=== PATIENT | male | born 1955 | race Caucasian/White ===

== ENCOUNTER 2016-09-24 07:53 | Inpatient (IN) | payer MEDICARE, BC ==
[2016-09-22 15:00] VITALS: BMI 22.8
--- NOTE | 2016-09-24 07:22 | P.GSHP ---
History of Present Illness H&P Date: 09/24/16 CHIEF COMPLAINT: GERD HISTORY OF PRESENT ILLNESS: The patient is a 61-year-old male who presents reports gastroesophageal reflux disease. Upper endoscopy was offered for further evaluation and management. PAST MEDICAL HISTORY: Please see list. PAST SURGICAL HISTORY: Please see list. MEDICATIONS: Please see list. ALLERGIES: Please see list. SOCIAL HISTORY: No illicit drug use FAMILY HISTORY: No reports of Crohn disease or ulcerative colitis. REVIEW OF ORGAN SYSTEMS: CONSTITUTIONAL: No reports of fevers or chills. GI: Denies any blood in stools or constipation. PHYSICAL EXAM: VITAL SIGNS: Stable GENERAL: Well-developed and pleasant in no acute distress. HEENT: No scleral icterus. Extraocular movements grossly intact. Moist buccal mucosa. NECK: Supple without lymphadenopathy. CHEST: Unlabored respirations. Equal bilateral excursions. CARDIOVASCULAR: Regular rate and rhythm. Distal 2+ pulses. ABDOMEN: Soft, nondistended. MUSCULOSKELETAL: No clubbing, cyanosis, or edema. ASSESSMENT: 1. Gastroesophageal reflux disease PLAN: 1. Recommend proceeding with an upper endoscopy Past Medical History Past Medical History: Hypertension, Seizure Disorder Additional Past Medical History / Comment(s): past hx. 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 ago-residual short term memory impairment, & comprehension, balance problems @times, occasional problems w/feeling like food gets stuck-not sure how long has been going on because of memory impairment, used to take BP med-no longer needed, used to have seizures-none for several yrs. History of Any Multi-Drug Resistant Organisms: None Reported Past Surgical History: Cholecystectomy Additional Past Surgical History / Comment(s): repair of aneurysm w/clip, has brain shunt-not sure if still functions, repair torn retina Past Anesthesia/Blood Transfusion Reactions: Previous Problems w/ Anesthesia Additional Past Anesthesia/Blood Transfusion Reaction / Comment(s): very slow to wake up-doesn't need much per spouse Smoking Status: Former smoker Past Alcohol Use History: Rare Additional Past Alcohol Use History / Comment(s): smoked occasional cigars 30 yrs. ago Past Drug Use History: None Reported - Past Family History Mother Family Medical History: Unable to Obtain Medications and Allergies Home Medications Medication Instructions Recorded Confirmed Type Cyanocobalamin (Vitamin B-12) 1,000 mcg PO DAILY 09/22/16 09/22/16 History [Vitamin B-12] Multivitamin [Men's Multi-Vitamin] 1 each PO DAILY 09/22/16 09/22/16 History Allergies Allergy/AdvReac Type Severity Reaction Status Date / Time No Known Allergies Allergy Verified 09/22/16 14:50
[~2016-09-24 07:53] MED LIST: LACTATED RINGERS 1,000 ML IV SCH
[2016-09-24] MEDS ORDERED: LIDOCAINE 1% 20 ML VIAL (10MG/ML) FOR IV START INTRADERMA ONE (08:24)
[2016-09-24] MEDS ORDERED: LIDOCAINE 1% INJ 10MG/ML (20 ML MDV) ONE (08:28)
[2016-09-24] MEDS ORDERED: PROPOFOL 10 MG/ML 20 ML VIAL IV ONE (08:28)
[2016-09-24] MEDS ORDERED: RX INFO: IV CONTRAST WAS GIVEN 1 EACH MISC MISCELLANE PRN ×2 (09:02→09:11)
[2016-09-24 09:31] LABS: Basophils % (A) 1 %; CH 30.2; CHCM 33.4; Eosinophils # (A) 0.3 k/uL (0-0.7); Eosinophils % (A) 5 %; HCT 44.7 % (39.0-53.0); HDW 2.31; HGB 14.6 gm/dL (13.0-17.5); Luc # (Auto) 0.09; Luc % (Auto) 2; Lymphocytes # (A) 1.4 k/uL (1.0-4.8); Lymphocytes % (A) 28 %; MCH 29.7 pg (25.0-35.0); MCHC 32.7 g/dL (31.0-37.0); MCV 90.8 fL (80.0-100.0); Mean Platelet Volume 6.4; Monocytes # (A) 0.4 k/uL (0-1.0); Monocytes % (A) 7 %; Neutrophils # (A) 2.9 k/uL (1.3-7.7); Neutrophils % (A) 58 %; RBC 4.92 m/uL (4.30-5.90); RDW 12.9 % (11.5-15.5); WBC 5.1 k/uL (3.8-10.6); WBC (Perox) 5.48
[2016-09-24 09:51] LABS: ALT 24 U/L (21-72); AST 18 U/L (17-59); Alkaline Phosphatase 64 U/L (38-126); Anion Gap 7 mmol/L; Blood Urea Nitrogen 12 mg/dL (9-20); Calcium 9.1 mg/dL (8.4-10.2); Carbon Dioxide 26 mmol/L (22-30); Chloride 105 mmol/L (98-107); Glucose 92 mg/dL (74-99); Non-African American GFR(MDRD) >60 (>60 ml/min/1.73 sqM); Potassium 4.1 mmol/L (3.5-5.1); Sodium 138 mmol/L (137-145); Total Bilirubin 0.8 mg/dL (0.2-1.3); Total Protein 6.6 g/dL (6.3-8.2)
--- NOTE | 2016-09-24 10:53 | CT ---
EXAMINATION TYPE: CT chest abdomen w con DATE OF EXAM: 09/24/2016 10:35 AM REFERENCE: NONE HISTORY: R/O ASPIRATION/NEOPLASM HISTORY: Esophageal mass, abn scope REFERENCE: NONE CT DLP: 592.7 mGy Automated exposure control for dose reduction was used. TECHNIQUE: Helical acquisition through the abdomen and pelvis was obtained following the oral ingesti on of without Oral Contrast and following intravenous administration of 100 mL of Omnipaque 300. The data was reformatted in axial, coronal and sagittal projections. FINDINGS: There is atelectasis or consolidation at the lung bases worse on the right than the left. No definite parenchymal mass is seen. There is no significant axillary, mediastinal or hilar adenopathy. There is no pleural or pericardial fluid. The heart is not enlarged. There is a prominent hiatal hernia. Within the abdomen, the gallbladder has been removed. The liver and spleen appear normal. Both adrenal glands appear normal. There is an irregularly enhancing 1.9 cm exophytic mass arising from the lower pole of the right kidn ey. The left kidney is normal. The pancreas is unremarkable. There is no significant retroperitoneal adenopathy. There is a ventriculoperitoneal shunt catheter in the soft tissues on the right side of the chest and abdomen and its tip is coiled within the pelvis on the right. Visualized bowel loops are unremarkable. No free fluid and no free air is seen. There is degenerative disc disease, facet arthropathy and mild hypertrophic spondylosis within the sp ine. IMPRESSION: ATELECTASIS VERSUS CONSOLIDATION BOTH LUNG BASES WORSE ON THE RIGHT THAN THE LEFT. 2. PROMINENT HIATAL HERNIA. 3. 1.9 CM, IRREGULARLY ENHANCING, EXOPHYTIC MASS ARISING FROM THE LOWER POLE THE RIGHT KIDNEY. THIS I S SUSPICIOUS FOR NEOPLASM. 4. STATUS POST POST BATCH MIXER SHUNT. 5. MILD DEGENERATIVE CHANGES WITHIN THE SPINE.
[2016-09-24] MEDS ORDERED: HYDROmorphone 1 MG/ML 1 ML SYRINGE IVP PRN (14:22)
[2016-09-24] MEDS ORDERED: ONDANSETRON 4 MG/2 ML VIAL IVP PRN (14:22)
[2016-09-24] MEDS ORDERED: NALOXONE 0.4 MG/ML 1 ML VIAL IV PRN (14:22)
[2016-09-24] MEDS ORDERED: traMADol 50 MG TAB PO PRN (14:22)
[2016-09-24] MEDS ORDERED: METOCLOPRAMIDE 5 MG/ML 2 ML VIAL IVP PRN (14:22)
--- NOTE | 2016-09-24 15:48 | FL ---
EXAMINATION TYPE: FL UGI w esophagus DATE OF EXAM: 09/24/2016 3:43 PM COMPARISON: NONE HISTORY: Esophageal mass on recent endoscopy TECHNIQUE: An air contrast UGI study is performed. FINDINGS: Tubing Tester image of the abdomen shows no gross abnormality. Apple core lesion distal esophagus just proximal to a moderate-sized fixed hiatal hernia. Luminal adan rowing is estimated at 50%. No evidence for obstruction at this time. The stomach shows normal distensibility, peristalsis, and mucosal folds. No evidence of any mass or ulcer disease. Moderate gastroesophageal reflux. The duodenal bulb, sweep, and proximal small bowel l oops are unremarkable. IMPRESSION: 1. Apple core lesion distal esophagus felt to reflect malignancy until proven otherwise. 2. Moderate fixed hiatal hernia with gastroesophageal reflux.
[2016-09-24 17:35] VITALS: RESP 16
--- NOTE | 2016-09-24 19:24 | P.PN ---
Subjective Principal diagnosis: Esophageal and right kidney tumor The patient is a 61-year-old gentleman who was admitted today after completing an upper endoscopy with balloon dilatation for narrow obstructing lesion of the GE junction. Biopsies were obtained. He had an immediate CT of the past and abdomen demonstrating a new finding of a right inferior pole neoplasm, possible malignancy. He then completed a upper GI for concerns of aspiration which demonstrated and confirmed an apple core lesion highly suspicious for cancer. His is at bedside for his baseline history of memory impairment secondary to ruptured cerebral aneurysm. Currently has no complaints. Objective - Vital Signs Vital signs: Vital Signs Temp 97.9 F 09/24/16 08:31 Pulse 61 09/24/16 17:05 Resp 16 09/24/16 18:31 BP 147/85 09/24/16 17:05 Pulse Ox 97 09/24/16 17:05 Intake & Output 09/24/16 09/24/16 09/25/16 06:59 18:59 06:59 Intake Total 500 Balance 500 Weight 70.307 kg Intake: IV 500 - Exam GENERAL: Well developed and in no acute distress. Pleasant. HEENT: No sclera icterus. Extraocular movements grossly intact. Moist buccal mucosa. Head is atraumatic, normocephalic. Hears conversational speech. No nasal drainage. NECK: Supple without lymphadenopathy. No JV distention. CHEST: Non-labored respirations and equal bilateral excursions. CARDIOVASCULAR: Regular rate and rhythm. Palpable 2+ radial pulses. ABDOMEN: Soft, nontender. Nondistended. MUSCULOSKELETAL: No clubbing, cyanosis or edema. NEUROLOGIC: No focal or lateralizing signs. PSYCH: Appropriate affect. Alert and oriented to person, place and time. - Labs CBC & Chem 7: 09/24/16 09:20 09/24/16 09:20 Assessment and Plan (1) Memory impairment Status: Acute (2) Cerebral aneurysm rupture Status: Acute (3) Dysphagia Status: Acute (4) Hiatal hernia Status: Acute (5) Primary esophageal malignancy Status: Acute (6) Renal malignant neoplasm Status: Acute (7) Reflux esophagitis Status: Acute (8) Duodenitis Status: Acute (9) Aspiration pneumonia due to regurgitated food Status: Acute Plan: 1. I discussed the findings of his computed tomography scan including upper GI and endoscopy images with his at bedside. Findings are highly suspicious of 2 separate malignancies involving the right kidney as well as the GE junction of the esophagus. 2. Recommend hospitalization for concern of near obstructing esophageal lesion as well as aspiration pneumonia. Pulmonary consultation obtained. 3. For history of kidney neoplasm, urology consultation obtained. Likely outpatient management was also described to his family. 4. Recommend oncology consultation as 2 separate primaries may be present with his renal neoplasm and esophageal neoplasm. Possibility of Mediport placement and chemotherapy were briefly reviewed. 5. Patient is placed on full liquid diet. 6. I discussed with nurse that to remain at bedside for his history of memory impairment. 7. Additionally, the patient does not have an active primary care provider. In the interim we'll continue to watch the patient closely. 8. Anticipated discharge pending evaluation with consultants.
--- NOTE | 2016-09-24 19:34 | P.PCN ---
Date of Procedure: 09/24/16 Description of Procedure: PREOPERATIVE DIAGNOSIS: Gastroesophageal reflux disease. History of stroke secondary to cerebral aneurysm rupture. Dysphagia. 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 POSTOPERATIVE DIAGNOSIS: Gastroesophageal reflux disease. History of stroke secondary to cerebral aneurysm rupture. Dysphagia. 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 Acute esophageal stenosis along GE junction. Diaphragmatic hiatal hernia type III. Duodenitis. OPERATION: Esophagogastroduodenoscopy with esophageal dilation from 8 mm to 15 mm. Esophagogastroduodenoscopy with biopsies along duodenum, esophageal stricture, antrum SURGEON: Steph Briones MD ANESTHESIA: MAC. INDICATIONS: The patient is a 61-year-old male who presents with several month history of increased dysphagia and epigastric abdominal pain. He has history of memory impairment secondary to hemorrhagic stroke from cerebral aneurysm. Benefits and risks of the procedure were described. Informed consent was obtained. DESCRIPTION: The patient was brought into the endoscopy suite and laid in the left lateral decubitus position. A pediatric Olympus gastroscope was carefully passed along the posterior oropharynx. Upon entry into the esophagus, circumferential lesion along the GE junction was identified at 32 cm from the incisors. The lesion was easily friable. The lumen was narrowed secondary to the lesion. The esophageal mucosa along the mid to distal esophagus was of cobblestone appearance suspicious for Way's. The remainder of the luminal stricture was consistent with 8.5 mm. The scope was entered into the hiatal hernia sac which was over 8 cm in size. No acute ulcerations were found. The rest of the stomach was entered without any evidence of gastric polyps or acute gastric ulcers. The duodenum was entered whereby the first portion of duodenum was consistent with early duodenitis. Cold forceps biopsies were obtained of the first portion duodenum including along the antrum of the stomach. Next attention was brought to dilation of the stricture of the esophagus. A 12 to 15 mm [employer] esophageal balloon dilator was inserted along the scope. The stricture corresponded to 8.5 mm. Carefully the balloon dilator was passed beyond the area stricture. Initial dilation was slowly performed at 12 mm then to 15 mm. The balloon was insufflated for 2 minutes, total. Retroflexion of the scope confirmed Hill grade 4 lower esophageal valve with a type III paraesophageal diaphragmatic hiatal hernia, sliding type. Cold forceps biopsies were obtained of esophageal stricture and lesion. The diaphragmatic hiatus was found at 40 cm. The squamocolumnar junction was again obliterated by the lesion. No full-thickness injury was found along the esophageal mucosa. The stomach was desufflated. The patient tolerated the procedure well. FINDINGS: Polypoid lesion with near obstruction at 32 cm from the incisors along the distal esophagus. Squamocolumnar junction obliterated by neoplasm. Diaphragmatic hiatus at 40 cm. Diaphragmatic hiatal hernia 8 cm. 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 Balloon dilation from 8.5 mm to 15 mm. Hill grade 4 lower esophageal valve. Active duodenitis. Acute mild duodenitis. RECOMMENDATIONS: He has been started on Carafate including protonix. Further recommendations pending results of pathology report. Recommend esophagram also to evaluate for aspiration. Recommend CT of the chest and abdomen for metastatic workup.
[2016-09-24] MEDS: SODIUM CHLORIDE 0.9% 1,000 ML IV SCH (19:42)
[2016-09-25] MEDS: SODIUM CHLORIDE 0.9% 1,000 ML IV SCH (08:20)
[2016-09-25] MEDS: PANTOPRAZOLE 40 MG/10 ML VIAL IV SCH (09:49)
[2016-09-25] MEDS: ENOXAPARIN 40 MG/0.4 ML SYRINGE SQ SCH (09:49)
--- NOTE | 2016-09-25 11:57 | P.GSCN ---
History of Present Illness Consult date: 09/25/16 Reason for Consult: Right renal mass Requesting physician: Steph Briones History of present illness: The patient is a 61-year-old white female known to Dr. Antonio. He has a neurogenic bladder related to a cerebral aneurysm. He has recently experienced dysphagia and epigastric pain. He underwent EGD, which revealed a distal esophageal neoplasm. Biopsy results are pending. The computed tomography scan showed an incidental 1.9 cm right lower pole renal mass. I'm consulted for this reason. The patient denies flank pain and hematuria. Review of Systems - Respiratory Denies dyspnea - Gastrointestinal Gastrointestinal Comment(s): Dysphagia - Genitourinary Reports urinary frequency, Denies hematuria - Neurological Reports memory loss Past Medical History Past Medical History: Hypertension, Seizure Disorder Additional Past Medical History / Comment(s): past hx. 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 ago-residual short term memory impairment, & comprehension, balance problems @times, occasional problems w/feeling like food gets stuck-not sure how long has been going on because of memory impairment, used to take BP med-no longer needed, used to have seizures-none for several yrs. History of Any Multi-Drug Resistant Organisms: None Reported Past Surgical History: Cholecystectomy Additional Past Surgical History / Comment(s): repair of aneurysm w/clip, has brain shunt-not sure if still functions, repair torn retina Past Anesthesia/Blood Transfusion Reactions: Previous Problems w/ Anesthesia Additional Past Anesthesia/Blood Transfusion Reaction / Comm: very slow to wake up-doesn't need much per spouse Smoking Status: Former smoker Past Alcohol Use History: Rare Additional Past Alcohol Use History / Comment(s): smoked occasional cigars 30 yrs. ago Past Drug Use History: None Reported - Past Family History Mother Family Medical History: Unable to Obtain Medications and Allergies Home Medications Medication Instructions Recorded Confirmed Type Cyanocobalamin (Vitamin B-12) 1,000 mcg PO DAILY 09/22/16 09/24/16 History [Vitamin B-12] Multivitamin [Men's Multi-Vitamin] 1 tab PO DAILY 09/22/16 09/24/16 History Allergies Allergy/AdvReac Type Severity Reaction Status Date / Time No Known Allergies Allergy Verified 09/24/16 08:13 Surgical - Exam Vital Signs Temp Pulse Resp BP Pulse Ox 97.9 F 67 16 145/97 97 09/24/16 08:04 09/24/16 08:04 09/24/16 08:04 09/24/16 08:04 09/24/16 08:04 - General well developed, well nourished, no distress - Abdomen Abdomen: soft, non tender, no guarding, no rigid, no rebound - Genitourinary normal penis with no external lesions, testicles non-tender - Psychiatric oriented to time, oriented to person, oriented to place, speech is normal, memory intact Results - Labs 09/24/16 09:20 09/24/16 09:20 Diabetes panel 09/24/16 Range/Units 09:20 Sodium 138 (137-145) mmol/L Potassium 4.1 (3.5-5.1) mmol/L Chloride 105 (98-107) mmol/L Carbon Dioxide 26 (22-30) mmol/L BUN 12 (9-20) mg/dL Creatinine 0.73 (0.66-1.25) mg/dL Glucose 92 (74-99) mg/dL Calcium 9.1 (8.4-10.2) mg/dL AST 18 (17-59) U/L ALT 24 (21-72) U/L Alkaline Phosphatase 64 (38-126) U/L Total Protein 6.6 (6.3-8.2) g/dL Albumin 3.6 (3.5-5.0) g/dL Calcium panel 09/24/16 Range/Units 09:20 Calcium 9.1 (8.4-10.2) mg/dL Albumin 3.6 (3.5-5.0) g/dL Pituitary panel 09/24/16 Range/Units 09:20 Sodium 138 (137-145) mmol/L Potassium 4.1 (3.5-5.1) mmol/L Chloride 105 (98-107) mmol/L Carbon Dioxide 26 (22-30) mmol/L BUN 12 (9-20) mg/dL Creatinine 0.73 (0.66-1.25) mg/dL Glucose 92 (74-99) mg/dL Calcium 9.1 (8.4-10.2) mg/dL Adrenal panel 09/24/16 Range/Units 09:20 Sodium 138 (137-145) mmol/L Potassium 4.1 (3.5-5.1) mmol/L Chloride 105 (98-107) mmol/L Carbon Dioxide 26 (22-30) mmol/L BUN 12 (9-20) mg/dL Creatinine 0.73 (0.66-1.25) mg/dL Glucose 92 (74-99) mg/dL Calcium 9.1 (8.4-10.2) mg/dL Total Bilirubin 0.8 (0.2-1.3) mg/dL AST 18 (17-59) U/L ALT 24 (21-72) U/L Alkaline Phosphatase 64 (38-126) U/L Total Protein 6.6 (6.3-8.2) g/dL Albumin 3.6 (3.5-5.0) g/dL - Imaging CT scan - abdomen: report reviewed, image reviewed Assessment and Plan (1) Renal mass, right Status: Acute Plan: The patient is a 61-year-old white male with probable esophageal carcinoma. Computed tomography scan imaging has shown an incidental 1.9 cm enhancing right lower pole renal mass. I had a lengthy discussion with the patient and his . I explained to them the most solid renal masses are malignant in nature. This could be metastatic from the presumed esophageal carcinoma, but it has the appearance of renal cell carcinoma and I suspect this is a second primary malignancy. Treatment options include partial nephrectomy, cryosurgery, and radiofrequency ablation. He is asymptomatic with regards to this mass, and I reassured the patient and his that small renal masses typically progress slowly. It would best be my recommendation that he undergo further evaluation and treatment for the esophageal carcinoma, and address the renal mass at a later date. It would be reasonable to repeat the computed tomography scan in 3- 6 months to determine whether or not the lesion has increased in size. I would suggest a renal biopsy if this would alter the management of the esophageal carcinoma. Please notify us if we can be of any further assistance. Incidentally, bladder scan has been ordered to determine the post-void residual in view of the patient's significant urinary frequency. Time with Patient: Greater than 30
--- NOTE | 2016-09-25 18:03 | CONS ---
DATE OF CONSULTATION: This is a 61-year-old gentleman who apparently recently he has a diagnosis of esophageal carcinoma. He apparently was in to have an EGD done by Dr. Briones to evaluate the patient's hiatal hernia and stomach. Apparently the patient may have had an aspiration episode during the event. I really was not able get much history from him or his significant other. He has apparently a significant memory issue. Anyway, currently the patient is doing well. No complaints whatsoever. No cough, no wheezing. No shortness of breath. No fever, no chills. No difficulty breathing. No complaints at all. He is resting in bed comfortably. Not having any issues at all. Again, I am not exactly sure why I was consulted. Anyway, the patient used to have a primary doctor up in [place]. It used to be Dr. Moreno. It also used to be Dr. Mora. Currently does not have a primary care physician. His past medical history includes hypertension, seizure disorder and a recent diagnosis of esophageal cancer. He also has a history of cerebral aneurysm rupture many years ago with significant memory impairment. He also used to have a history of seizures, none recently. Other surgical history includes cholecystectomy, repair of aneurysm with clipping and a brain shunt, probably a ventricular peritoneal shunt. SOCIAL HISTORY: Positive for previous tobacco use. Does not smoke currently. No alcohol use. No illicit drug use. FAMILY HISTORY: Not relevant. Home medications only included a few things including multiple vitamins, vitamin B12, Carafate and omeprazole. No allergies are noted. REVIEW OF SYSTEMS: CONSTITUTIONAL: Negative. NEUROLOGICAL: Negative. HEENT: Negative. CARDIOVASCULAR: Negative. PULMONARY: Negative. GI/: Negative. RHEUMATOLOGICAL/IMMUNOLOGIC: Negative. ENDOCRINOLOGIC: Negative. Current vital signs are reviewed. Temperature is 97.8, heart rate 68, respirations 16, blood pressure 153/75, mean 114, room air saturation 97%. Appears in no acute distress. HEENT examination is grossly unremarkable. Mucous membranes are moist. No oral lesions. Neck is supple. Full range of motion. No adenopathy. Neck veins are flat. Cardiovascular examination reveals regular rhythm and rate. S1, S2 normal. No S3, S4, murmur. Lungs are clear breath sounds equal. No wheezes or rhonchi. ABDOMEN: Soft. Bowel sounds are heard. EXTREMITIES: Intact. There is no cyanosis, clubbing or edema. Skin is without rash. NEUROLOGICAL: Nonfocal. Labs are reviewed. From yesterday CBC was completely normal. Electrolyte profile/comprehensive metabolic profile is also completely normal. The patient had a CAT scan which apparently showed evidence of bibasilar atelectasis. I was not able to pull up the CAT scan on PACS. In addition, there was a prominent hiatal hernia as well as a lesion in the lower pole of the right kidney suspicious for neoplasm. There was also evidence of previously placed ventricular peritoneal shunt and some mild degenerative changes within the spine. I would like to think that the changes on CT scan likely represent atelectasis given the fact that he is asymptomatic from the pulmonary standpoint. ASSESSMENT: 1. Possible transient aspiration with no significant sequelae. 2. Recent esophagogastroduodenoscopy for evaluation of gastroesophageal reflux disease and hiatal hernia. 3. Recent diagnosis of esophageal cancer. 4. A 1.9 cm lesion in the right kidney suspicious for neoplasm. 5. Previous aneurysm rupture with significant memory impairment, status post clipping. 6. Previous history of ventricular peritoneal shunt. 7. Degenerative joint disease. 8. Hiatal hernia. 9. History of hypertension. 10. History of seizure disorder without any recent seizures. PLAN: Really nothing for me to do. Would recommend incentive spirometry. No additional treatments are necessary at this point. Will follow only as needed.
--- NOTE | 2016-09-25 20:25 | P.PN ---
Subjective Principal diagnosis: Dysphagia , Reflux 61 yrs old male undergoing evaluation of GERD and dysphagia. UGI - applecore distal esophageal lesion s/o malignancy. EGD with bx performed- results pending. He is tolerating full liquids. Short term memory loss secondary to ruptured cerebral aneursym and has MILL ATTENDANT shunt in place. Incidental finding of kidney mass on CT abd/pelvis. No new complaints. at bedside Objective - Vital Signs Vital signs: Vital Signs Temp 97.4 F L 09/25/16 15:00 Pulse 74 09/25/16 15:00 Resp 16 09/25/16 15:00 BP 163/91 09/25/16 15:00 Pulse Ox 97 09/25/16 15:00 Intake & Output 09/25/16 09/25/16 09/26/16 06:59 18:59 06:59 Intake Total 1230 1200 Balance 1230 1200 Intake: IV 750 1200 Sodium Chloride 0.9% 1, 750 1200 000 ml @ 75 mls/hr IV . [id number] EDER Rx#:[id number] Oral 480 Other: Voiding Method Toilet # Voids 1 - Exam General: Patient is awake and alert Chest: Bilateral breasth sounds present CVS: No tachycardia, RRR Abdomen: SOft, nontender - Labs CBC & Chem 7: 09/24/16 09:20 09/24/16 09:20 Assessment and Plan (1) Hiatal hernia Status: Acute (2) Memory impairment Status: Acute (3) Primary esophageal malignancy Status: Acute (4) Reflux esophagitis Status: Acute Plan: 1. Advace to soft diet 2. Aspiration precautions 3. Oncology and pulmonology consult awaited
[2016-09-26] MEDS: SODIUM CHLORIDE 0.9% 1,000 ML IV SCH (04:18)
[2016-09-26 08:00] VITALS: BP 179/98; PULSE 69; TEMP 98
[2016-09-26] MEDS: PANTOPRAZOLE 40 MG/10 ML VIAL IV SCH (08:04)
[2016-09-26] MEDS: ENOXAPARIN 40 MG/0.4 ML SYRINGE SQ SCH (08:04)
--- NOTE | 2016-09-26 10:58 | P.CONS ---
History of Present Illness - Reason for Consult Consult date: 09/26/16 esophageal mass Requesting physician: Steph Briones - Chief Complaint dysphagia, reflux - History of Present Illness Mr. Jarquin is a very pleasant 61-year-old male who was having routine EGD for complaints of dysphagia x 1 month. Patient has moderate to severe heartburn episodes and some minor weight loss. Surgeon identified GE junction mass and biopsies have been taken, pathology pending. He has a history of a cerebral hemorrhage about 25 years ago and has difficulties with memory. His provides us with much of the information. Patient denies having any fevers or sweats, vomiting, hematemesis, acute changes in bowel or bladder habits. He does not recall when he began experiencing severe reflux, his states it was about a month ago, patient does not complain about much, the family only knows about problems when it has become severe. Patient denies any painful swallowing, regurgitation or difficulty managing his secretions. Patient states he can eat and drink fairly well. Review of Systems All systems: negative Constitutional: Reports as per HPI Past Medical History Past Medical History: Hypertension, Seizure Disorder Additional Past Medical History / Comment(s): past hx. 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 ago-residual short term memory impairment, & comprehension, balance problems @times, occasional problems w/feeling like food gets stuck-not sure how long has been going on because of memory impairment, used to take BP med-no longer needed, used to have seizures-none for several yrs. History of Any Multi-Drug Resistant Organisms: None Reported Past Surgical History: Cholecystectomy Additional Past Surgical History / Comment(s): repair of aneurysm w/clip, has brain shunt-not sure if still functions, repair torn retina Past Anesthesia/Blood Transfusion Reactions: Previous Problems w/ Anesthesia Additional Past Anesthesia/Blood Transfusion Reaction / Comm: very slow to wake up-doesn't need much per spouse Smoking Status: Former smoker Past Alcohol Use History: Rare Additional Past Alcohol Use History / Comment(s): smoked occasional cigars 30 yrs. ago Past Drug Use History: None Reported - Past Family History Mother Family Medical History: Unable to Obtain Medications and Allergies Home Medications Medication Instructions Recorded Confirmed Type Cyanocobalamin (Vitamin B-12) 1,000 mcg PO DAILY 09/22/16 09/24/16 History [Vitamin B-12] Multivitamin [Men's Multi-Vitamin] 1 tab PO DAILY 09/22/16 09/24/16 History Allergies Allergy/AdvReac Type Severity Reaction Status Date / Time No Known Allergies Allergy Verified 09/24/16 08:13 Physical Exam Vitals: Vital Signs Temp Pulse Resp BP Pulse Ox 09/26/16 07:00 98.0 F 69 16 179/98 95 09/25/16 21:15 97.3 F L 80 16 161/88 96 09/25/16 15:00 97.4 F L 74 16 163/91 97 Intake and Output 09/25/16 09/26/16 09/26/16 22:59 06:59 14:59 Intake Total 780 600 Output Total 2200 Balance 780 -1600 Intake: IV 300 600 Sodium Chloride 0.9% 1, 300 600 000 ml @ 75 mls/hr IV . [id number] Rx#:[id number] Oral 480 Output: Urine 2200 Uretheral ([place]) 2200 Other: Voiding Method Indwelling Catheter Indwelling Catheter Weight 70.307 kg Patient Weight 09/27/16 06:59 Weight 70.307 kg - Constitutional General appearance: average body habitus, cooperative, no acute distress - EENT Eyes: anicteric sclerae, PERRLA, normal appearance ENT: normal oropharynx - Neck Neck: no lymphadenopathy - Respiratory Respiratory: bilateral: CTA - Cardiovascular Rhythm: regular Heart sounds: normal: S1, S2 leg Peripheral Edema: bilateral: None - Gastrointestinal General gastrointestinal: no absent bowel sounds, no decreased bowel sounds, no distended, no hepatomegaly, no hyperactive bowel sounds, normal bowel sounds, no organomegaly, no rigid, no scaphoid, soft, no splenomegaly, no tenderness, no umbilical hernia, no ventral hernia - Integumentary Integumentary: pale - Neurologic Neurologic: CNII-XII intact - Musculoskeletal Musculoskeletal: strength equal bilaterally - Psychiatric Some difficulties with memory secondary to history of cerebral hemorrhage 25 years ago Psychiatric: A&O x's 3, appropriate affect, intact judgment & insight Results CBC & Chem 7: 09/24/16 09:20 09/24/16 09:20 Comments: Surgical report reviewed CT scan - abdomen: report reviewed CT scan - chest: report reviewed Assessment and Plan (1) Dysphagia Narrative/Plan: Patient's discharge at has led to an EGD and identification of the GE junction mass which has been biopsied, pathology pending. Dr. Hyde did discuss with the patient and his concerns for malignancy. Staging PET scan and endoscopic ultrasound will be scheduled, did confirm patient's contact information and demographics. Further referrals to radiation oncology as well as cardiothoracic surgeon will be made as appropriate. Status: Acute (2) Renal mass, right Narrative/Plan: Dr. Sorenson has seen pt and Dr. Hyde reviewed imaging, 1.9cm mass not concerning at this time. Agree with Dr. Sorenson plan for follow-up. Patient will also be having a staging PET scan that may be able to further evaluate this area as well. Status: Acute Plan: Patient is okay from an oncology standpoint to be discharged home once he has been cleared by attending and any other consulting physicians.
--- NOTE | 2016-09-26 11:29 | P.DS ---
Providers Date of admission: 09/24/16 14:22 Expected date of discharge: 09/26/16 Attending physician: Steph Briones Consults: 09/24/16 14:50 Consult Physician Routine Consulting Provider: Memo Sorenson Consult Reason/Comments: Right kidney neoplasm Do you want consulting provider notified?: Yes 09/24/16 14:51 Consult Physician Routine Consulting Provider: Bruno Wood Consult Reason/Comments: Aspiration pneumonia Do you want consulting provider notified?: Yes 09/24/16 16:32 Consult Physician Routine Consulting Provider: Love Wilder Consult Reason/Comments: Kidney and esophageal tumor Do you want consulting provider notified?: Yes Primary care physician: Stated None - Discharge Diagnosis(es) (1) Hiatal hernia Current Visit: Yes Status: Acute (2) Memory impairment Current Visit: Yes Status: Acute (3) Primary esophageal malignancy Current Visit: Yes Status: Acute (4) Reflux esophagitis Current Visit: Yes Status: Acute Hospital Course: 61 years old male found to have distal esophageal mass on EGD and upper GI showed 50% narrowing of the lumen consistent with esophageal carcinoma. Incidental finding of kidney mass. Patient was evaluated by oncology and urology and plan for outpatient follow-up . Patient is tolerating soft diet at discharge Patient Condition at Discharge: Stable Plan - Discharge Summary New Discharge Prescriptions: Omeprazole 40 mg PO DAILY #90 capsule. Sucralfate [Carafate] 1 gm PO BID #480 ml Discharge Medication List Cyanocobalamin (Vitamin B-12) [Vitamin B-12] 1,000 mcg PO DAILY 09/22/16 [ History] Multivitamin [Men's Multi-Vitamin] 1 tab PO DAILY 09/22/16 [History] Omeprazole 40 mg PO DAILY #90 capsule. 09/24/16 [Rx] Sucralfate [Carafate] 1 gm PO BID #480 ml 09/24/16 [Rx] Follow up Appointment(s)/Referral(s): Memo Sorenson MD [STAFF PHYSICIAN] - 1 Week Steph Briones MD [STAFF PHYSICIAN] - 10/07/16 ([place]) Patient Instructions/Handouts: *Surgery [facility] - (Anesthesia) Endoscopy Discharge Instructions, Upper Endoscopy (DC), Esophageal Stricture (DC), Esophageal Dilation (DC) Activity/Diet/Wound Care/Special Instructions: Liquid diet only. Discharge Disposition: HOME SELF-CARE
[2016-09-26] MEDS ORDERED: BISACODYL 10 MG SUPP RECTAL STA (13:05)
--- NOTE | 2016-09-26 23:44 | PN ---
61-year-old gentleman with a recent diagnosis of esophageal carcinoma. He apparently was to have an EGD done by Dr. Briones to evaluate the patient's hiatal hernia. The patient may have aspirated during the episode. Anyway, the patient is not a particularly good historian. Does not really having any respiratory issues. His was with him at the bedside. He apparently is doing relatively well. No further episodes. I did institute aspiration precautions. I also recommend incentive spirometry. He possibly had a transient aspiration with no significant sequelae following an EGD. Anyway, the patient is doing much better. Current vital signs are reviewed. Temperature 98.8, heart rate 59, respirations 16, blood pressure of 163/91, mean 115, room air saturation 97%. Appears in no acute distress. HEENT examination is grossly unremarkable. Mucous membranes are moist. No oral lesions. Neck is supple. Full range of motion. No adenopathy or thyromegaly. Cardiovascular examination reveals regular rhythm and rate. S1, S2 normal. No S3, S4 or murmur. Lungs reveal mostly clear breath sounds. No wheezes or rhonchi. No crackles. ABDOMEN: Soft. Bowel sounds are heard. EXTREMITIES: Intact. There is no cyanosis, clubbing or edema. Skin is without rash. NEUROLOGICAL: Difficult to perform because of the patient's dementia and memory, and the patient appeared to be nonfocal. No new labs to report. No new x-rays to report. ASSESSMENT: 1. Possible transient aspiration following an EEG with no significant sequelae. 2. Recent EGD for evaluation of gastroesophageal reflux disease and hiatal hernia. 3. Esophageal cancer, recently diagnosed. 4. 1.9 cm lesion in the right kidney cyst suspicious for neoplasm. 5. Previous aneurysm rupture with significant memory impairment, status post clipping. 6. Previous history of ventricular peritoneal shunt. 7. Degenerative joint disease. 8. Hiatal hernia. 9. History of hypertension. 10. History of seizure disorder without any recent seizures. PLAN: The patient is doing well from a pulmonary standpoint. We will see him as needed. No additional recommendations are made. Does not require oxygen this time.
--- NOTE | 2016-09-27 08:03 | P.DS ---
Providers Date of admission: 09/24/16 14:22 Expected date of discharge: 09/26/16 Attending physician: Steph Briones Consults: 09/24/16 14:50 Consult Physician Routine Consulting Provider: Memo Sorenson Consult Reason/Comments: Right kidney neoplasm Do you want consulting provider notified?: Yes 09/24/16 14:51 Consult Physician Routine Consulting Provider: Bruno Wood Consult Reason/Comments: Aspiration pneumonia Do you want consulting provider notified?: Yes 09/24/16 16:32 Consult Physician Routine Consulting Provider: Love Wilder Consult Reason/Comments: Kidney and esophageal tumor Do you want consulting provider notified?: Yes Primary care physician: Stated None - Discharge Diagnosis(es) (1) Memory impairment Status: Acute (2) Cerebral aneurysm rupture Status: Acute (3) Dysphagia Status: Acute (4) Hiatal hernia Status: Acute (5) Primary esophageal malignancy Status: Acute (6) Renal malignant neoplasm Status: Acute (7) Reflux esophagitis Status: Acute (8) Duodenitis Status: Acute (9) Aspiration pneumonia due to regurgitated food Status: Acute Hospital Course: The patient is a 61-year-old gentleman who came in for history of dysphagia. He had an upper endoscopy with findings of a partially obstructing esophageal lesion. He then had a CT of the chest and abdomen including esophagram demonstrating a large diaphragmatic hiatal hernia including a lesion along the distal esophagus consistent with possible esophageal malignancy. Biopsies of the lesion were obtained. Separately incidental finding of a right inferior pole malignancy was identified. With this history of memory impairment including past history of ruptured cerebral aneurysm, he was admitted for further evaluation and management. Additional consultants including pulmonary for risk of aspiration pneumonia as well as urology and hematology oncology were obtained. Prior to discharge, he was tolerating diet. Discharge instructions including plan of care were reviewed. Pertinent Studies: CT of the chest and abdomen demonstrating large diaphragmatic hiatal hernia as well as inferior pole malignancy of the right kidney. Findings of consolidation of the bilateral lower lung bases identified. Esophagogram demonstrating reflux disease including large diaphragmatic hiatal hernia and esophageal malignancy of the distal esophagus. Procedures: Upper endoscopy with esophageal dilation and biopsies of the esophagus, antrum and duodenum. Patient Condition at Discharge: Stable Plan - Discharge Summary New Discharge Prescriptions: Omeprazole 40 mg PO DAILY #90 capsule. Sucralfate [Carafate] 1 gm PO BID #480 ml Discharge Medication List Cyanocobalamin (Vitamin B-12) [Vitamin B-12] 1,000 mcg PO DAILY 09/22/16 [ History] Multivitamin [Men's Multi-Vitamin] 1 tab PO DAILY 09/22/16 [History] Omeprazole 40 mg PO DAILY #90 capsule. 09/24/16 [Rx] Sucralfate [Carafate] 1 gm PO BID #480 ml 09/24/16 [Rx] Follow up Appointment(s)/Referral(s): Memo Sorenson MD [STAFF PHYSICIAN] - 1 Week (Patient needs to call Dr. Sorenson's office Tuesday to schedule follow up appointment. The office is closed at time of discharge.) Steph Briones MD [STAFF PHYSICIAN] - 10/07/16 (Patient to call Dr. Díaz office Tuesday to get time of follow up appointment. The office is closed at time of discharge. ) Love Wilder MD [STAFF PHYSICIAN] - 1 Week (call tuesday to make appt) Patient Instructions/Handouts: *Sur[facility] - (Anesthesia) Endoscopy Discharge Instructions, Sucralfate (By mouth), Omeprazole (By mouth), Upper Endoscopy (DC) , Esophageal Stricture (DC), Esophageal Dilation (DC) Activity/Diet/Wound Care/Special Instructions: Liquid diet only. Discharge Disposition: HOME SELF-CARE
== END 2016-09-26 16:50 | disposition home or self-care (01) | DRG 376 ==
LOC: ORWHC2ENDO 07:53 → 5ONC 14:22
PROVIDERS: ADMIT Surgery Plastic and Reconstructive Surgery; ATTEND Surgery Plastic and Reconstructive Surgery
PROC: 0D758ZZ Dilation of Esophagus, Via Natural or Artificial Opening Endoscopic (ICD-10-PCS; principal; 2016-09-24 08:30)
PROC: 0DB58ZX Excision of Esophagus, Via Natural or Artificial Opening Endoscopic, Diagnostic (ICD-10-PCS; principal; 2016-09-24 08:30)
DX: C15.9 Malignant neoplasm of esophagus, unspecified (principal); F03.90 Unspecified dementia, unspecified severity, without behavioral disturbance, psychotic disturbance, mood disturbance, and anxiety; N31.9 Neuromuscular dysfunction of bladder, unspecified; D49.511 Neoplasm of unspecified behavior of right kidney; I10 Essential (primary) hypertension; I69.111 Memory deficit following nontraumatic intracerebral hemorrhage; K21.0 Gastro-esophageal reflux disease with esophagitis; K22.70 Barrett's esophagus without dysplasia; K29.80 Duodenitis without bleeding; K44.9 Diaphragmatic hernia without obstruction or gangrene; M19.90 Unspecified osteoarthritis, unspecified site; Z87.891 Personal history of nicotine dependence; Z98.2 Presence of cerebrospinal fluid drainage device
CPT/HCPCS: 43239; 43249; 71260; 74160; 74240; 80053; 85025; 88305; 88342

== ENCOUNTER → 2016-10-16 | Outpatient (CLI) | payer MEDICARE, BC ==
--- NOTE | 2016-10-18 10:25 | PE ---
Nuclear medicine PET/CT HISTORY: Esophagus carcinoma Patient received 9.4 mCi F-18 FDG intravenously. Delayed scanning was performed from the skull base t o the mid thighs. Localization and attenuation correction CT scan was also performed. Correlation to chest abdomen CT 09/24/2016 Neck and chest: There is esophageal thickening distally the level of the gastroesophageal junction, a ssociated hypermetabolic uptake is present, SUV is 7.8. There is a hiatal hernia, partial intrathorac ic stomach. No local adenopathy. No associated hypermetabolic uptake. No evident lung mass, no pleura l or pericardial effusion. Emphysematous changes are present within the lungs. There are areas of deandre g scarring. Shunt tubing courses from the posterior right neck along anterior chest and abdomen. Tera nary calcifications are present. Skull base shows inflammatory change in the sphenoid sinus on the right, ethmoid air cells. Postcrani otomy change, probable aneurysm clipping noted in the distribution of the right middle cerebral arter y. Abdomen pelvis: No retroperitoneal adenopathy. Patient is post cholecystectomy. No evident lung mass. Lower pole of the right kidney shows possible mass on prior CT, no definite associated hypermetaboli c uptake.. There is a shunt catheter coursing into the pelvis. Osseous structures: No evident mass. No suspicious hypermetabolic uptake. IMPRESSION: Findings compatible with patient's history of esophageal carcinoma. Follow-up for lower p ole right renal lesion is recommended.
== END | disposition home or self-care (01) ==
LOC: RADPETMAIN 12:38
PROVIDERS: ATTEND Internal Medicine Hematology & Oncology
DX: C15.5 Malignant neoplasm of lower third of esophagus (principal)
CPT/HCPCS: 78815; A9552

== ENCOUNTER → 2016-12-25 | Outpatient (CLI) | payer MEDICARE, BC ==
--- NOTE | 2016-12-27 13:49 | PE ---
Nuclear medicine PET/CT HISTORY: Esophageal carcinoma With patient received 11.8 mCi F-18 FDG intravenously in delayed scanning performed from the skull ba se to the mid thighs. Localization and attenuation correction CT scan was also performed. Correlation to prior nuclear medicine PET/CT 10/16/2016 Neck and chest: Hypermetabolic uptake is noted within the esophagus as midportion, SUV 3.4. Within th e stomach mild radio pharmaceutical uptake shows SUV 2.8 and may be physiologic. Inflammatory change noted incidentally in the sphenoid sinus on the right similar to prior exam. Nasopharyngeal hypermeta bolic uptake is intense, SUV 4.7. No significant change. Abdomen pelvis: Shunt tubing is again noted. No evident liver mass or adenopathy. Lower pole right ki dney shows similar appearance. No suspicious hypermetabolic uptake Osseous structures: Anterior aspect of L5 shows some mild uptake SUV 2.6 as at L4. IMPRESSION: Uptake seen along the distribution of the esophagus is somewhat more diffuse and likely r elated to treatment change, focal \uptake is not identified. Additional nonspecific foci of uptake of questionable clinical significance.
== END | disposition home or self-care (01) ==
LOC: RADPETMAIN 09:41
PROVIDERS: ATTEND Internal Medicine Hematology & Oncology
DX: C15.5 Malignant neoplasm of lower third of esophagus (principal)
CPT/HCPCS: 78815; A9552

== ENCOUNTER 2017-05-26 17:51 | Inpatient (IN) | payer MEDICARE, BC ==
[2017-05-26] MEDS ORDERED: ONDANSETRON 4 MG/2 ML VIAL IVP STA (18:00)
[2017-05-26] MEDS ORDERED: HYDROmorphone 1 MG/ML 1 ML SYRINGE IVP STA (18:00)
--- NOTE | 2017-05-26 18:18 | ED ---
Fall HPI - General Chief Complaint: Fall Stated Complaint: Fall/Hip Pain Time Seen by Provider: 05/26/17 17:53 Source: patient, EMS Mode of arrival: EMS Limitations: physical limitation - History of Present Illness Initial Comments: 62-year-old female presents emergency department via EMS chief complaint left hip pain, fall. Patient states he went outside, slipped on ice and fell onto his left hip. Patient was outside for approximately 20 minutes. Patient states he is slightly cold though he is not shivering. Patient states that his left hip pain and states it is pain with any movement. Patient states that he has a history of ruptured 20+ years ago. Patient states that he has some memory loss from this. Patient denies head injury no LOC today. Patient has a history of A. fib but states that he does not believe that he is on anticoagulants. Patient states she's had esophageal cancer with esophageal reconstruction. - Related Data Home Medications Medication Instructions Recorded Confirmed Multivitamin [Men's Multi-Vitamin] 1 tab PO DAILY 09/22/16 05/26/17 Cyanocobalamin (Vitamin B-12) 5,000 mcg SL DAILY 05/26/17 05/26/17 [Vitamin B12] Metoprolol Tartrate [Lopressor] 25 mg PO TID 05/26/17 05/26/17 Tamsulosin HCl [Flomax] 0.4 mg PO HS 05/26/17 05/26/17 Allergies Allergy/AdvReac Type Severity Reaction Status Date / Time No Known Allergies Allergy Verified 05/26/17 18:32 Review of Systems ROS Statement: Those systems with pertinent positive or pertinent negative responses have been documented in the HPI. ROS Other: All systems not noted in ROS Statement are negative. Past Medical History Past Medical History: Atrial Fibrillation, Cancer, Hypertension, Seizure Disorder Additional Past Medical History / Comment(s): past hx. 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 ago-residual short term memory impairment, & comprehension, balance problems @times, occasional problems w/feeling like food gets stuck-not sure how long has been going on because of memory impairment, used to take BP med-no longer needed, used to have seizures-none for several yrs. History of Any Multi-Drug Resistant Organisms: None Reported Past Surgical History: Cholecystectomy Additional Past Surgical History / Comment(s): repair of aneurysm w/clip, has brain shunt-not sure if still functions, repair torn retina Past Anesthesia/Blood Transfusion Reactions: Previous Problems w/ Anesthesia Additional Past Anesthesia/Blood Transfusion Reaction / Comment(s): very slow to wake up-doesn't need much per spouse Past Psychological History: No Psychological Hx Reported Smoking Status: Former smoker Past Alcohol Use History: Rare Past Drug Use History: None Reported - Past Family History Mother Family Medical History: Unable to Obtain General Exam Limitations: altered mental status, physical limitation General appearance: alert, in no apparent distress Respiratory exam: Present: normal lung sounds bilaterally. Absent: respiratory distress, wheezes, rales, rhonchi, stridor Cardiovascular Exam: Present: regular rate, normal rhythm, normal heart sounds. Absent: systolic murmur, diastolic murmur, rubs, gallop, clicks Extremities exam: Present: other (Left hip tenderness with palpation, pulses equal bilaterally, there is internal rotation shortening noted, pain with any movement.) Skin exam: Present: dry, intact, normal color. Absent: warm (Patient slightly cool to touch as he was found outside for 20 minutes) Course Vital Signs 05/26/17 05/26/17 17:55 18:42 Temperature 95.9 F L Pulse Rate 63 71 Respiratory 18 18 Rate Blood Pressure 178/97 157/84 O2 Sat by Pulse 92 L 94 L Oximetry Medical Decision Making - Lab Data Result diagrams: 05/26/17 18:22 05/26/17 18:22 Lab Results 05/26/17 05/26/17 05/26/17 Range/Units 18:22 18:22 18:22 WBC 6.0 (3.8-10.6) k/uL RBC 4.72 (4.30-5.90) m/uL Hgb 13.6 (13.0-17.5) gm/dL Hct 41.3 (39.0-53.0) % MCV 87.5 (80.0-100.0) fL MCH 28.9 (25.0-35.0) pg MCHC 33.1 (31.0-37.0) g/dL RDW 13.6 (11.5-15.5) % Plt Count 208 (150-450) k/uL Neutrophils % 77 % Lymphocytes % 11 % Monocytes % 6 % Eosinophils % 4 % Basophils % 0 % Neutrophils # 4.6 (1.3-7.7) k/uL Lymphocytes # 0.7 L (1.0-4.8) k/uL Monocytes # 0.4 (0-1.0) k/uL Eosinophils # 0.3 (0-0.7) k/uL Basophils # 0.0 (0-0.2) k/uL PT 10.8 (9.0-12.0) sec INR 1.1 (<1.2) APTT 23.2 (22.0-30.0) sec Sodium 138 (137-145) mmol/L Potassium 3.9 (3.5-5.1) mmol/L Chloride 101 (98-107) mmol/L Carbon Dioxide 26 (22-30) mmol/L Anion Gap 11 mmol/L BUN 9 (9-20) mg/dL Creatinine 0.65 L (0.66-1.25) mg/dL Est GFR (MDRD) Af Amer >60 (>60 ml/min/1.73 sqM) Est GFR (MDRD) Non-Af >60 (>60 ml/min/1.73 sqM) Glucose 111 H (74-99) mg/dL Calcium 9.5 (8.4-10.2) mg/dL Total Bilirubin 0.4 (0.2-1.3) mg/dL AST 24 (17-59) U/L ALT 35 (21-72) U/L Alkaline Phosphatase 108 (38-126) U/L Total Protein 6.9 (6.3-8.2) g/dL Albumin 4.1 (3.5-5.0) g/dL Disposition Clinical Impression: Fall, Closed left hip fracture Disposition: ADMITTED IP TO THIS [facility] Condition: Stable Referrals: None,Stated [REFERRING] - 1-2 days
[2017-05-26 18:32] LABS: Basophils % (A) 0 %; Eosinophils # (A) 0.3 k/uL (0-0.7); Eosinophils % (A) 4 %; HCT 41.3 % (39.0-53.0); HGB 13.6 gm/dL (13.0-17.5); Lymphocytes # (A) 0.7 k/uL (1.0-4.8); Lymphocytes % (A) 11 %; MCH 28.9 pg (25.0-35.0); MCHC 33.1 g/dL (31.0-37.0); MCV 87.5 fL (80.0-100.0); Mean Platelet Volume 6.6; Monocytes # (A) 0.4 k/uL (0-1.0); Monocytes % (A) 6 %; Neutrophils # (A) 4.6 k/uL (1.3-7.7); Neutrophils % (A) 77 %; Platelet Count 208 k/uL (150-450); RBC 4.72 m/uL (4.30-5.90); RDW 13.6 % (11.5-15.5)
[2017-05-26 18:45] LABS: ALT 35 U/L (21-72); AST 24 U/L (17-59); Albumin 4.1 g/dL (3.5-5.0); Alkaline Phosphatase 108 U/L (38-126); Anion Gap 11 mmol/L; Blood Urea Nitrogen 9 mg/dL (9-20); Calcium 9.5 mg/dL (8.4-10.2); Carbon Dioxide 26 mmol/L (22-30); Chloride 101 mmol/L (98-107); Glucose 111 mg/dL (74-99); Potassium 3.9 mmol/L (3.5-5.1); Sodium 138 mmol/L (137-145); Total Bilirubin 0.4 mg/dL (0.2-1.3); Total Protein 6.9 g/dL (6.3-8.2)
[2017-05-26 18:46] LABS: INR 1.1 (<1.2); Partial Thromboplastin Time 23.2 sec (22.0-30.0); Prothrombin Time 10.8 sec (9.0-12.0)
--- NOTE | 2017-05-26 19:09 | XR ---
EXAMINATION TYPE: XR Hip LT and AP Pelvis , 3 VIEWS DATE OF EXAM ORDERED: 05/26/2017 HISTORY: Pain. COMPARISON: None. FINDINGS: Catheter tubing projects over the right side of the abdomen. There is superior joint space loss present in both hips. There is a subcapital fracture of the left h ip with mild angulation and minimal foreshortening. No other fracture is seen. IMPRESSION: SUBCAPITAL FRACTURE OF THE LEFT HIP WITH MILD FORESHORTENING AND MINIMAL ANGULATION. CODE A: INITIAL ASSESSMENT FOR CLOSED FRACTURE.
--- NOTE | 2017-05-26 19:11 | XR ---
EXAMINATION TYPE: XR chest 1V DATE OF EXAM: 05/26/2017 HISTORY: Pain following trauma. REFERENCE: None. FINDINGS: There is a AUTOTRANSFUSIONIST shunt projecting over the right side of the chest. Lung volumes are prominent. The heart is mildly enlarged. There is blunting of the left CP angle. I c ould not exclude a small left effusion.. IMPRESSION: 1. COPD. 2. BORDERLINE CARDIOMEGALY. 3. I COULD NOT EXCLUDE A SMALL, LEFT EFFUSION.
[2017-05-26] MEDS ORDERED: HYDROmorphone 2 MG/ML 1 ML SYRINGE IVP PRN (19:14)
[2017-05-26] MEDS ORDERED: NALOXONE 0.4 MG/ML 1 ML VIAL IV PRN (19:14)
[2017-05-26] MEDS ORDERED: ONDANSETRON 4 MG/2 ML VIAL IVP PRN (19:14)
[2017-05-26 20:28] VITALS: BMI 22.9
[2017-05-26] MEDS: METOPROLOL TARTRATE 25 MG TAB PO SCH (20:47)
[2017-05-26] MEDS: TAMSULOSIN 0.4 MG CAP.ER.24H PO SCH (20:47)
[2017-05-26] MEDS: HYDROmorphone 2 MG/ML 1 ML SYRINGE IVP PRN (22:38)
--- NOTE | 2017-05-26 22:52 | P.HPIM ---
History of Present Illness H&P Date: 05/26/17 Chief Complaint: fall HISTORY OF PRESENT ILLNESS: 62-year-old male patient of Dr. 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 Patient went outside to take the trash out slipped on the ice and fell onto his left hip, and was down for about 20 minutes was found by his [id number] who is helping to take care of him while his was running an errand. Denies any head injury or loss of consciousness, complains of left hip and left rib pain. The bulk of the history was obtained from the patient's who is at the bedside. REVIEW OF SYSTEMS GEN.: [ Tired] EYES: [Spatial visual problems HEENT: [None] NECK: [None] RESPIRATORY: [Some shortness of breath] CARDIOVASCULAR: [Palpitations] GASTROINTESTINAL: [Swallowing difficulties] GENITOURINARY: [Difficulty initiating a stream, neurogenic bladder] MUSCULOSKELETAL: [Back pain left hip, left lower extremity pain] LYMPHATICS: [None] HEMATOLOGICAL: [None] PSYCHIATRY: [None] NEUROLOGICAL: [Dizziness, left-sided neglect] PAST MEDICAL HISTORY Past medical history: Atrial fibrillation, cancer, hypertension, seizure disorder, cerebral aneurysm rupture 25 years ago has residual short-term memory impairment and comprehension and balance problems, esophageal stricture Past surgical history: Repair of aneurysm with clip, has brain shunt torn retina repair esophagectomy for esophageal cancer with reconstruction. PEG tube placement with removal Past psychological history: None SOCIAL HISTORY: Additional psychological/social history: Smoking use history: Occasionally smokes cigars 30 years ago Alcohol use history: Rare Drug use history: Denies Marital status: Living situation: Lives with Work history: FAMILY HISTORY: Father: Mother: ALLERGIES: No known ALLERGIES HOME MEDICATION: Tamsulosin 0.4 mg by mouth at bedtime Multivitamin 1 tablet by mouth daily Metoprolol tartrate 25 mg by mouth 3 times a day Cyanocobalamin 5000 g sublingual daily VITAL SIGNS: [Temperature 98.9, pulse 76, respiratory rate 18, blood pressure 183/88, oxygen saturation 92% on room air. BMI noted] GENERAL: [Average built, sitting up, mild discomfort]. EYES: [Pupils equal. Conjunctiva leonard]l. HEENT: [External appearance of nose and ears normal, oral cavity grossly normal] . NECK: [JVD not raised; masses not palpable]. HEART: [First and second heart sounds are normal; no edema]. LUNGS:[ Respiratory rate normal; clear to auscultation]. ABDOMEN: [Soft, nontender, liver spleen not palpable, no masses palpable]. LYMPHATICS: [No lymph nodes palpable in the axilla and neck]. PSYCH: [Alert and oriented x3; has short-term memory problems mood and affect leonard]l. NEUROLOGICAL: [Cranial nerves grossly intact; mild left facial asymmetry, left- sided neglect, power and sensation on the right 5 over 5, left 4/5]. INVESTIGATIONS: CBC unremarkable, BMP unremarkable ASSESSMENT: -Subcapital fracture of the left hip secondary to a fall outside patient was down for 20 minutes -Benign prostatic hypertrophy -Paroxysmal atrial fibrillation, currently in sinus rhythm PLAN: Reorder home medications, Consult orthopedics, patient to be made nothing by mouth after midnight for possible surgery in the morning. Plan of care discussed at the bedside with the patient and they are in agreement. We will follow closely. 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 Chaudhary. Past Medical History Past Medical History: Atrial Fibrillation, Cancer, Hypertension, Seizure Disorder Additional Past Medical History / Comment(s): past hx. 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 ago-residual short term memory impairment, & comprehension, balance problems @times, occasional problems w/feeling like food gets stuck-not sure how long has been going on because of memory impairment, used to take BP med-no longer needed, used to have seizures-none for several yrs. History of Any Multi-Drug Resistant Organisms: None Reported Past Surgical History: Cholecystectomy Additional Past Surgical History / Comment(s): repair of aneurysm w/clip, has brain shunt-not sure if still functions, repair torn retina Past Anesthesia/Blood Transfusion Reactions: Previous Problems w/ Anesthesia Additional Past Anesthesia/Blood Transfusion Reaction / Comment(s): very slow to wake up-doesn't need much per spouse Past Psychological History: No Psychological Hx Reported Smoking Status: Never smoker Past Alcohol Use History: Rare Additional Past Alcohol Use History / Comment(s): smoked occasional cigars 30 yrs. ago Past Drug Use History: None Reported - Past Family History Mother Family Medical History: Unable to Obtain Medications and Allergies Home Medications Medication Instructions Recorded Confirmed Type Multivitamin [Men's Multi-Vitamin] 1 tab PO DAILY 09/22/16 05/26/17 History Cyanocobalamin (Vitamin B-12) 5,000 mcg SL DAILY 05/26/17 05/26/17 History [Vitamin B12] Metoprolol Tartrate [Lopressor] 25 mg PO TID 05/26/17 05/26/17 History Tamsulosin HCl [Flomax] 0.4 mg PO HS 05/26/17 05/26/17 History Allergies Allergy/AdvReac Type Severity Reaction Status Date / Time No Known Allergies Allergy Verified 05/26/17 18:32 Physical Exam Vitals: Vital Signs Temp Pulse Resp BP Pulse Ox 05/26/17 19:56 98.9 F 76 18 183/88 92 L 05/26/17 18:42 71 18 157/84 94 L 05/26/17 17:55 95.9 F L 63 18 178/97 92 L Intake and Output 05/26/17 05/26/17 05/26/17 06:59 14:59 22:59 Other: Weight 72.575 kg Patient Weight 05/27/17 06:59 Weight 72.575 kg Results CBC & Chem 7: 05/26/17 18:22 05/26/17 18:22 Labs: Abnormal Lab Results - Last 24 Hours (Table) 05/26/17 05/26/17 Range/Units 18:22 18:22 Lymphocytes # 0.7 L (1.0-4.8) k/uL Creatinine 0.65 L (0.66-1.25) mg/dL Glucose 111 H (74-99) mg/dL Thrombosis Risk Factor Assmnt - Choose All That Apply Each Factor Represents 1 point: Medical pt on bed rest, Minor surgery planned Each Risk Factor Represents 2 Points: Age 61-74 years Thrombosis Risk Factor Assessment Total Risk Factor Score: 4 Thrombosis Risk Factor Assessment Level: Moderate Risk
[2017-05-27] MEDS: HYDROmorphone 2 MG/ML 1 ML SYRINGE IVP PRN ×4 (04:23→19:49)
[2017-05-27] MEDS: METOPROLOL TARTRATE 25 MG TAB PO SCH ×3 (08:55→21:16)
[2017-05-27] MEDS: CYANOCOBALAMIN 500 MCG TAB PO SCH (08:56)
--- NOTE | 2017-05-27 10:18 | P.HPOR ---
History of Present Illness H&P Date: 05/27/17 Chief Complaint: left hip fracture Patient is a pleasant 62-year-old male seen at bedside this morning. He was admitted to the emergency department last evening 05/26/2017 after a fall at home. He was putting trash in a burn barrel when he slipped and fell on his left side. He has pain at the left hip as expected. He is currently denying radicular symptoms including numbness or tingling. He has no calf pain, fever, chills, chest pain or shortness of breath. He denies losing consciousness or hitting his head. His past medical history includes esophageal cancer where he underwent radiation and chemotherapy last summer and finally surgery in January 2017. He and his state that he is finished with treatment. He had an aneurysm 25 years ago which resulted in residual short-term memory loss. This has been chronic and stable. He had some residual left-sided weakness from the aneurysm as well but has been active with walking daily up to 3 miles per day this past summer. He has been medically stable and takes one medication for hypertension and one medication for BPH. He has no other complaints today. Review of Systems All systems: negative Constitutional: Denies chills, Denies fever Eyes: denies blurred vision, denies pain Ears, nose, mouth and throat: Denies headache, Denies sore throat Cardiovascular: Denies chest pain, Denies shortness of breath Respiratory: Denies cough Gastrointestinal: Denies abdominal pain, Denies diarrhea, Denies nausea, Denies vomiting Musculoskeletal: Denies myalgias Integumentary: Denies pruritus, Denies rash Neurological: Denies numbness, Denies weakness Psychiatric: Denies anxiety, Denies depression Endocrine: Denies fatigue, Denies weight change Past Medical History Past Medical History: Atrial Fibrillation, Cancer, Hypertension, Seizure Disorder Additional Past Medical History / Comment(s): past hx. 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 ago-residual short term memory impairment, & comprehension, balance problems @times, occasional problems w/feeling like food gets stuck-not sure how long has been going on because of memory impairment, used to take BP med-no longer needed, used to have seizures-none for several yrs. History of Any Multi-Drug Resistant Organisms: None Reported Past Surgical History: Cholecystectomy Additional Past Surgical History / Comment(s): repair of aneurysm w/clip, has brain shunt-not sure if still functions, repair torn retina Past Anesthesia/Blood Transfusion Reactions: Previous Problems w/ Anesthesia Additional Past Anesthesia/Blood Transfusion Reaction / Comment(s): very slow to wake up-doesn't need much per spouse Past Psychological History: No Psychological Hx Reported Smoking Status: Never smoker Past Alcohol Use History: Rare Additional Past Alcohol Use History / Comment(s): smoked occasional cigars 30 yrs. ago Past Drug Use History: None Reported - Past Family History Mother Family Medical History: Unable to Obtain Medications and Allergies Home Medications Medication Instructions Recorded Confirmed Type Multivitamin [Men's Multi-Vitamin] 1 tab PO DAILY 09/22/16 05/26/17 History Cyanocobalamin (Vitamin B-12) 5,000 mcg SL DAILY 05/26/17 05/26/17 History [Vitamin B12] Metoprolol Tartrate [Lopressor] 25 mg PO TID 05/26/17 05/26/17 History Tamsulosin HCl [Flomax] 0.4 mg PO HS 05/26/17 05/26/17 History Allergies Allergy/AdvReac Type Severity Reaction Status Date / Time No Known Allergies Allergy Verified 05/26/17 18:32 Physical Examination inspection of the left lower extremity shows a shortened leg. There is no erythema.There are no open wounds or lacerations. Range of motion of the hip is not tested due to the fracture. The knee, ankle and foot are benign in appearance. He has some pain with mild range of motion of the left knee. The ankle, foot and toes have painless range of motion. Motor and sensation is grossly intact throughout the left lower extremity. Calf is soft and nontender. 2+ dorsalis pedis pulse is present and less than 2 second capillary refill is present. Results - Labs Labs: Abnormal Lab Results - Last 24 Hours (Table) 05/26/17 05/26/17 Range/Units 18:22 18:22 Lymphocytes # 0.7 L (1.0-4.8) k/uL Creatinine 0.65 L (0.66-1.25) mg/dL Glucose 111 H (74-99) mg/dL H & H 05/26/17 Range/Units 18:22 Hgb 13.6 (13.0-17.5) gm/dL Hct 41.3 (39.0-53.0) % Coagulation 05/26/17 Range/Units 18:22 INR 1.1 (<1.2) Result Diagrams: 05/26/17 18:22 05/26/17 18:22 - Diagnostic results Hip x-ray: report reviewed, image reviewed (left femoral neck fracture) Assessment and Plan (1) Closed left hip fracture Narrative/Plan: Patient will require surgical intervention for his left hip fracture. He is currently nothing by mouth. He appears to be medically stable, his labs and studies appear to be within relatively normal ranges. Will discuss case with Dr. Wagner and make further recommendations as appropriate. Current Visit: Yes Status: Acute Priority: Medium Code(s): S72.002A - FRACTURE OF UNSP PART OF NECK OF LEFT FEMUR, INIT SNOMED Code(s): 256664581 Time with Patient: Less than 30
[2017-05-27] MEDS: MULTIVITAMINS, THERA 1 EACH TAB PO SCH (10:25)
--- NOTE | 2017-05-27 12:47 | P.CON ---
Consult Note - . Consult date: 05/27/17 Assessment/Plan:: CONSULTATION DATE OF CONSULTATION: 05/26/2017 REASON FOR CONSULTATION: Medical management HISTORY OF PRESENT ILLNESS: 62-year-old male patient went outside to take the trash out slipped on the ice and fell onto his left hip, and was down for about 20 minutes was found by his [id number] who is helping to take care of him while his was running an errand. Denies any head injury or loss of consciousness, complains of left hip and left rib pain. The bulk of the history was obtained from the patient's who is at the bedside.t of Dr. 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 Patient REVIEW OF SYSTEMS GEN.: [ Tired] EYES: [Spatial visual problems HEENT: [None] NECK: [None] RESPIRATORY: [Some shortness of breath] CARDIOVASCULAR: [Palpitations] GASTROINTESTINAL: [Swallowing difficulties] GENITOURINARY: [Difficulty initiating a stream, neurogenic bladder] MUSCULOSKELETAL: [Back pain left hip, left lower extremity pain] LYMPHATICS: [None] HEMATOLOGICAL: [None] PSYCHIATRY: [None] NEUROLOGICAL: [Dizziness, left-sided neglect] PAST MEDICAL HISTORY: Past medical history: Atrial fibrillation, cancer, hypertension, seizure disorder, cerebral aneurysm rupture 25 years ago has residual short-term memory impairment and comprehension and balance problems, esophageal stricture PAST SURGICAL HISTORY: Repair of aneurysm with clip, has brain shunt torn retina repair esophagectomy for esophageal cancer with reconstruction. PEG tube placement with removal Past psychological history: None SOCIAL HISTORY: Additional psychological/social history: Smoking use history: Occasionally smokes cigars 30 years ago Alcohol use history: Rare Drug use history: Denies Marital status: Living situation: Lives with Work history: FAMILY HISTORY: Reviewed and noncontributory HOME MEDICATIONS: Tamsulosin 0.4 mg by mouth at bedtime Multivitamin 1 tablet by mouth daily Metoprolol tartrate 25 mg by mouth 3 times a day Cyanocobalamin 5000 g sublingual daily ALLERGIES: No known ALLERGIES VITAL SIGNS: [Temperature 98.9, pulse 76, respiratory rate 18, blood pressure 183/88, oxygen saturation 92% on room air. BMI noted] GENERAL: [Average built, sitting up, mild discomfort]. EYES: [Pupils equal. Conjunctiva leonard]l. HEENT: [External appearance of nose and ears normal, oral cavity grossly normal] . NECK: [JVD not raised; masses not palpable]. HEART: [First and second heart sounds are normal; no edema]. LUNGS:[ Respiratory rate normal; clear to auscultation]. ABDOMEN: [Soft, nontender, liver spleen not palpable, no masses palpable]. LYMPHATICS: [No lymph nodes palpable in the axilla and neck]. PSYCH: [Alert and oriented x3; has short-term memory problems mood and affect leonard]l. NEUROLOGICAL: [Cranial nerves grossly intact; mild left facial asymmetry, left- sided neglect, power and sensation on the right 5 over 5, left 4/5]. INVESTIGATIONS: CBC unremarkable, BMP unremarkable ASSESSMENT: -Subcapital fracture of the left hip secondary to a fall outside patient was down for 20 minutes -Benign prostatic hypertrophy -Paroxysmal atrial fibrillation, currently in sinus rhythm PLAN: Review of his home medications, nothing by mouth after midnight for possible surgery in the morning. Thank you Dr. Wagner for this kind referral and allowing us to participate in the care of your patient CRITICAL CARE REGISTERED NURSE STATEMENT: Patient was seen and examined by nurse practitioner Jelly Avila and all elements of the case discussed with attending Dr. Chaudhary.
--- NOTE | 2017-05-27 12:47 | CONS ---
CONSULTATION DATE OF CONSULTATION: 05/26/2017 ATTENDING NOTE: The patient was seen and examined by me. I discussed with nurse practitioner, Williamsera. The patient is seen by me in consultation yesterday, 05/26/17. The patient slipped on ice and has a fracture of the left hip/femur. The patient is rather active. No cardiac history. Good exercise tolerance. ON EXAMINATION: Temperature 98.9, pulse 76, respirations 18, blood pressure 157/84, pulse ox 94% on room air. Average built. EYES: Pupils equal. Conjunctivae normal. HENT: External . Oral cavity normal. NECK: JVD not raised. Mass not palpable. RESPIRATORY: Effort normal. Lungs are clear. CARDIOVASCULAR: First and second sounds normal. No edema. ABDOMEN: Soft, nontender. Liver and spleen not palpable. LYMPHATIC: No lymph nodes palpable in neck or axillae. PSYCHIATRY: Alert and oriented x3. Mood and affect normal. NEUROLOGICAL: Pupils equal. Cranial nerves grossly intact. Power and sensation grossly intact MUSCULOSKELETAL: Limited range of motion of the left hip. INVESTIGATIONS: White count 6, hemoglobin 13.6. Potassium 3.9. EKG normal sinus rhythm. ASSESSMENT: 1. Subcapital fracture of the left hip with minimal displacement secondary to fall. 2. Essential hypertension. 3. Benign prostatic hypertrophy. PLAN: The patient has got a good exercise tolerance with no cardiac history. Exercise tolerance is good. The patient is low risk from a cardiovascular standpoint from surgery and okay to proceed with the same. Home medications will continue. DVT prophylaxis per Orthopedics depending on when they might take the patient to surgery. Care was discussed with the patient. His questions were answered. MMODL / IJN: [id number] /
--- NOTE | 2017-05-27 13:23 | XR ---
EXAMINATION TYPE: XR knee complete LT DATE OF EXAM: 05/27/2017 COMPARISON: NONE HISTORY: Pain TECHNIQUE: Four views are submitted. FINDINGS: Mild narrowing the joint space of the knee bilaterally including the patellofemoral joint. Mild diffu se osteopenia. Osseous structures are intact. No acute fracture seen. IMPRESSION: 1. No acute fracture or dislocation. 2. Mild osteoarthritis.
[2017-05-27] MEDS ORDERED: HYDROmorphone 0.5 MG/0.5 ML SYRINGE IVP PRN (16:16)
--- NOTE | 2017-05-27 18:53 | P.PN ---
Progress Note - Text Progress Note Date: 05/27/17 DATE OF SERVICE: 05/27/2017 PRESENTING COMPLAINT: Status post fall left hip and side pain HISTORY OF PRESENT ILLNESS: 62-year-old male who sustained a fall home putting trash and a burn barrel slipped and fell on his left side, pain at the left hip. Found to have a subcapital fracture of the left hip, admitted for the same. INTERVAL HISTORY: 05/27/2017: Patient lying in bed appears comfortable. Does complain of some left hip pain still, pain medications to work well. Patient does have a long-standing history of short-term memory losses so it is difficult for him to remember these things. is at the bedside, patient currently nothing by mouth for possible surgery later today and if not today Tuesday. REVIEW OF SYSTEMS: Done for constitutional ,cardiovascular, GI, pulmonary with relevant findings as above. CURRENT MEDICATIONS Vitamin B12, Dilaudid, Lopressor, multivitamin, Narcan, Zofran, Flomax. PHYSICAL EXAM VITAL SIGNS: Temperature 99.5, pulse 84, respiratory rate 20, blood pressure 147/72, oxygen saturations 92% on room air. GENERAL APPEARANCE: . Lying in bed, not in distress. HEENT: Normocephalic, Pupils equal. Conjunctiva normal. JVD not raised. Mass not palpable.: RESPIRATORY: Respiratory effort normal. Lungs clear to auscultation. CARDIOVASCULAR: First and second sounds normal. No edema. ABDOMEN: Soft. Liver and spleen not palpable. No tenderness. No mass palpable. PSYCHIATRY: Alert and oriented x3. Mood and affect normal. MUSCULOSKELETAL: Left hip has limited range of motion INVESTIGATIONS: Labs: None new Left knee x-ray: No acute fracture dislocation, mild osteoarthritis. ASSESSMENT: -Subcapital fracture of the left hip secondary to a fall outside patient was down for 20 minutes. -Benign prostatic hypertrophy. -Essential hypertension. -Paroxysmal atrial fibrillation, currently in sinus rhythm. PLAN: Patient is either due to have surgery today or on Tuesday based on orthopedics plan. Patient is otherwise medically stable. Plan of care discussed at the bedside we will follow closely. EXTENSION SERVICE SPECIALIST IN CHARGE statement: Patient was seen and examined by nurse practitioner Jelly Avila and all elements of the case discussed with attending Dr. Chaudhary
[2017-05-27] MEDS ORDERED: ACETAMINOPHEN TAB 325 MG TAB PO PRN (21:04)
[2017-05-27] MEDS: TAMSULOSIN 0.4 MG CAP.ER.24H PO SCH (21:16)
--- NOTE | 2017-05-27 22:32 | PN ---
PROGRESS NOTE DATE OF SERVICE: 05/27/2017. ATTENDING NOTE: This patient was seen and examined by me. I discussed the case with the nurse practitioner Ms. Avila. I saw this patient earlier today; at the bedside. He has a hip fracture, pending surgery; otherwise comfortable. PHYSICAL EXAMINATION: Temperature 99.5, pulse 84, respiration 20, blood pressure 147/72. Lungs are clear. CARDIOVASCULAR: First and second sounds normal. ASSESSMENT: 1. Left hip fracture. 2. Benign prostatic hypertrophy. 3. Essential hypertension. PLAN: Care was discussed the patient and . Awaiting surgery. MMODL / IJN: [id number] /
[2017-05-28] MEDS: HYDROmorphone 2 MG/ML 1 ML SYRINGE IVP PRN ×4 (05:56→21:17)
[2017-05-28] MEDS: CYANOCOBALAMIN 500 MCG TAB PO SCH (08:48)
[2017-05-28] MEDS: METOPROLOL TARTRATE 25 MG TAB PO SCH ×3 (08:48→21:07)
[2017-05-28] MEDS ORDERED: DIAZEPAM 5 MG/ML (10 ML MDV) IVP PRN (10:37)
--- NOTE | 2017-05-28 10:50 | P.PN ---
Subjective Progress Note Date: 05/28/17 This is a 62-year-old male who was admitted for left hip fracture. Patient is seen and evaluated at bedside today. Patient states his pain is under control. Patient does report muscle spasms. Patient denies any numbness, weakness, tingling. Objective - Vital Signs Vital signs: Vital Signs Temp 97.9 F 05/28/17 07:00 Pulse 82 05/28/17 07:00 Resp 16 05/28/17 07:00 BP 166/73 05/28/17 07:00 Pulse Ox 93 L 05/28/17 07:00 Intake & Output 05/27/17 05/28/17 05/28/17 18:59 06:59 18:59 Output Total 900 Balance -900 Weight 72.575 kg Output: Urine 900 Other: Voiding Method Indwelling Catheter Indwelling Catheter Indwelling Catheter # Bowel Movements 0 - Exam On exam patient is alert and oriented 3 and is in no acute distress. There is no deformity of the left lower extremity. There is no ecchymosis or erythema. Calf is soft and nontender to palpation. Neurovascular status and circulatory status are intact to the left lower extremity. - Labs CBC & Chem 7: 05/26/17 18:22 05/26/17 18:22 Assessment and Plan (1) Closed left hip fracture Current Visit: Yes Status: Acute Priority: Medium Code(s): S72.002A - FRACTURE OF UNSP PART OF NECK OF LEFT FEMUR, INIT SNOMED Code(s): 121380371 (2) Fall Current Visit: Yes Status: Acute Code(s): W19.XXXA - UNSPECIFIED FALL, INITIAL ENCOUNTER SNOMED Code(s): 3651257 (3) Memory impairment Current Visit: No Status: Acute Code(s): R41.3 - OTHER AMNESIA SNOMED Code (s): 544310456 Plan: #1. Continue pain control. Valium as needed for muscle spasm. #2. Lovenox and SCDs for DVT prophylaxis #3. Nonweightbearing to the left lower extremity. #4. Left total hip arthroplasty is tentatively scheduled for Tuesday, 2017.
[2017-05-28] MEDS: SENNOSIDES-DOCUSATE SODIUM 1 EACH TAB PO SCH (11:17)
[2017-05-28] MEDS: MULTIVITAMINS, THERA 1 EACH TAB PO SCH (11:17)
[2017-05-28] MEDS ORDERED: DIAZEPAM 5 MG TAB PO PRN (11:19)
--- NOTE | 2017-05-28 19:00 | P.PN ---
Progress Note - Text Progress Note Date: 05/28/17 DATE OF SERVICE: 05/28/2017 PRESENTING COMPLAINT: Status post fall left hip and side pain HISTORY OF PRESENT ILLNESS: 62-year-old male who sustained a fall home putting trash and a burn barrel slipped and fell on his left side, pain at the left hip. Found to have a subcapital fracture of the left hip, admitted for the same. INTERVAL HISTORY: 05/28/2017: Patient lying in bed appears comfortable at the bedside. Continues to have left hip pain and some muscle spasming. Orthopedics is ordered Valium for muscle spasms. Continue to be nonweightbearing to left lower extremity. Lovenox was added to patient's regimen for DVT prophylaxis. Left total hip arthroplasty is tentatively scheduled for 05/31/2017. Patient tolerating his diet, last BM prior to admission. Senna and MiraLAX added. 05/27/2017: Patient lying in bed appears comfortable. Does complain of some left hip pain still, pain medications to work well. Patient does have a long-standing history of short-term memory losses so it is difficult for him to remember these things. is at the bedside, patient currently nothing by mouth for possible surgery later today and if not today Tuesday. REVIEW OF SYSTEMS: Done for constitutional ,cardiovascular, GI, pulmonary with relevant findings as above. CURRENT MEDICATIONS Tylenol, vitamin B12, Valium, Lovenox, Dilaudid, Lopressor, multivitamin, Narcan , Zofran, MiraLAX, Senokot-S, Flomax. PHYSICAL EXAM VITAL SIGNS: Temperature 97.9, pulse 82, respiratory rate 16, blood pressure 166/73, oxygen saturation 93% on room air. GENERAL APPEARANCE: . Lying in bed, not in distress. HEENT: Normocephalic, Pupils equal. Conjunctiva normal. JVD not raised. Mass not palpable.: RESPIRATORY: Respiratory effort normal. Lungs clear to auscultation. CARDIOVASCULAR: First and second sounds normal. No edema. ABDOMEN: Soft. Liver and spleen not palpable. No tenderness. No mass palpable. PSYCHIATRY: Alert and oriented x3. Mood and affect normal. MUSCULOSKELETAL: Left hip has limited range of motion INVESTIGATIONS: Labs: None new ASSESSMENT: -Subcapital fracture of the left hip secondary to a fall outside patient was down for 20 minutes. -Benign prostatic hypertrophy. -Essential hypertension. -Paroxysmal atrial fibrillation, currently in sinus rhythm. PLAN: Patient is is scheduled for surgery on 05/31/2017. Patient is otherwise medically stable. Plan of care discussed at the bedside we will follow closely. SECURITY SOLUTIONS ENGINEER statement: Patient was seen and examined by nurse practitioner Jelly Avila and all elements of the case discussed with attending Dr. Flores
--- NOTE | 2017-05-28 20:06 | PN ---
PROGRESS NOTE DATE OF SERVICE: 05/28/17. ATTENDING NOTE: Patient seen and examined by me. I discussed with nurse practitioner Ms. Avila. Sitting on bed. Comfortable. Pain is controlled. at the bedside. EXAM: Lungs are clear. Cardiovascular: 1st and 2nd sounds normal. ASSESSMENT: Left hip fracture, pending surgery. Other medical conditions stable. MMODL / IJN: [id number] /
[2017-05-28] MEDS: TAMSULOSIN 0.4 MG CAP.ER.24H PO SCH (21:07)
--- NOTE | 2017-05-29 08:16 | P.PN ---
Subjective Progress Note Date: 05/29/17 This is a 62-year-old male who was admitted for left hip fracture. Patient has a history of short-term memory loss. Patient is seen and evaluated at bedside today. Patient states his pain is under control. Patient denies any new complaints today. Patient denies any numbness, weakness, tingling. Objective - Vital Signs Vital signs: Vital Signs Temp 98.4 F 05/28/17 22:22 Pulse 93 05/29/17 00:00 Resp 16 05/29/17 00:00 BP 129/76 05/28/17 22:22 Pulse Ox 94 L 05/28/17 22:22 Intake & Output 05/28/17 05/29/17 05/29/17 18:59 06:59 18:59 Output Total 500 800 Balance -500 -800 Output: Urine 500 800 Other: Voiding Method Indwelling Catheter Indwelling Catheter # Bowel Movements 0 2 - Exam On exam patient is alert and oriented 3 and is in no acute distress. There is no deformity of the left lower extremity. There is no ecchymosis or erythema. Calf is soft and nontender to palpation. Neurovascular status and circulatory status are intact to the left lower extremity. - Labs CBC & Chem 7: 05/26/17 18:22 05/26/17 18:22 Assessment and Plan (1) Closed left hip fracture Current Visit: Yes Status: Acute Priority: Medium Code(s): S72.002A - FRACTURE OF UNSP PART OF NECK OF LEFT FEMUR, INIT SNOMED Code(s): 863911944 (2) Fall Current Visit: Yes Status: Acute Code(s): W19.XXXA - UNSPECIFIED FALL, INITIAL ENCOUNTER SNOMED Code(s): 5121571 (3) Memory impairment Current Visit: No Status: Acute Code(s): R41.3 - OTHER AMNESIA SNOMED Code (s): 765101513 Plan: #1. Continue pain control. Valium as needed for muscle spasm. #2. Lovenox and SCDs for DVT prophylaxis #3. Nonweightbearing to the left lower extremity. #4. Hemiarthroplasty is planned for Tuesday this week.
[2017-05-29] MEDS: CYANOCOBALAMIN 500 MCG TAB PO SCH (08:28)
[2017-05-29] MEDS: ENOXAPARIN 40 MG/0.4 ML SYRINGE SQ SCH (08:29)
[2017-05-29] MEDS: METOPROLOL TARTRATE 25 MG TAB PO SCH ×3 (08:29→20:37)
[2017-05-29] MEDS: POLYETHYLENE GLYCOL 3350 17 GM POWD.PACK PO SCH (08:29)
[2017-05-29] MEDS: SENNOSIDES-DOCUSATE SODIUM 1 EACH TAB PO SCH (08:30)
[2017-05-29] MEDS: MULTIVITAMINS, THERA 1 EACH TAB PO SCH (11:51)
--- NOTE | 2017-05-29 19:20 | P.PN ---
Progress Note - Text Progress Note Date: 05/29/17 DATE OF SERVICE: 05/29/2017 PRESENTING COMPLAINT: Status post fall left hip and side pain HISTORY OF PRESENT ILLNESS: 62-year-old male who sustained a fall home putting trash and a burn barrel slipped and fell on his left side, pain at the left hip. Found to have a subcapital fracture of the left hip, admitted for the same. INTERVAL HISTORY: 05/29/2017: Lying in bed appears comfortable. Continues to have left hip pain and some muscle spasming, however Valium and pain medications do help. Continue nonweightbearing status to the left lower extremity. Lovenox for DVT prophylaxis. Has had frequent stooling due to laxative use, laxative currently on hold. Surgery scheduled with Dr. Tracy tentatively for Tuesday, 2017. Patient is tolerating his diet, last BM today, remains on bedrest. 05/28/2017: Patient lying in bed appears comfortable at the bedside. Continues to have left hip pain and some muscle spasming. Orthopedics is ordered Valium for muscle spasms. Continue to be nonweightbearing to left lower extremity. Lovenox was added to patient's regimen for DVT prophylaxis. Left total hip arthroplasty is tentatively scheduled for 05/31/2017. Patient tolerating his diet, last BM prior to admission. Senna and MiraLAX added. 05/27/2017: Patient lying in bed appears comfortable. Does complain of some left hip pain still, pain medications to work well. Patient does have a long-standing history of short-term memory losses so it is difficult for him to remember these things. is at the bedside, patient currently nothing by mouth for possible surgery later today and if not today Tuesday. REVIEW OF SYSTEMS: Done for constitutional ,cardiovascular, GI, pulmonary with relevant findings as above. CURRENT MEDICATIONS Tylenol, vitamin B12, Valium, Lovenox, Dilaudid, Lopressor, multivitamin, Narcan , Zofran, MiraLAX, Senokot-S, Flomax. PHYSICAL EXAM VITAL SIGNS: Temperature 98.8, pulse 62, respiratory rate 16, blood pressure 150/77, oxygen saturation 94% GENERAL APPEARANCE: . Lying in bed, not in distress. HEENT: Normocephalic, Pupils equal. Conjunctiva normal. JVD not raised. Mass not palpable.: RESPIRATORY: Respiratory effort normal. Lungs clear to auscultation. CARDIOVASCULAR: First and second sounds normal. No edema. ABDOMEN: Soft. Liver and spleen not palpable. No tenderness. No mass palpable. PSYCHIATRY: Alert and oriented x3. Mood and affect normal. MUSCULOSKELETAL: Left hip has limited range of motion, tender to palpation INVESTIGATIONS: Labs: None new ASSESSMENT: -Subcapital fracture of the left hip secondary to a fall outside patient was down for 20 minutes. -Benign prostatic hypertrophy. -Essential hypertension. -Paroxysmal atrial fibrillation, currently in sinus rhythm. PLAN: Patient is is scheduled for surgery on 05/31/2017. Patient is otherwise medically stable. Plan of care discussed at the bedside we will follow closely. CHARGE WEIGHER statement: Patient was seen and examined by nurse practitioner Jelly Avila and all elements of the case discussed with attending Dr. Flores
[2017-05-29] MEDS: TAMSULOSIN 0.4 MG CAP.ER.24H PO SCH (20:23)
--- NOTE | 2017-05-29 20:40 | PN ---
PROGRESS NOTE DATE OF SERVICE: 05/29/17 ATTENDING NOTE: Patient seen and examined by me. I discussed with nurse practitioner Ms. Avila. Sitting on bed, reading newspaper. PHYSICAL EXAMINATION: Afebrile. Blood pressure 150/77, pulse ox 94% on room air. Lungs are clear. Cardiovascular 1st and 2nd sounds normal. ASSESSMENT: Left hip fracture. Other medical conditions stable. Awaiting surgery. Care was discussed with the patient. MMODL / IJN: [id number] /
[2017-05-29] MEDS: HYDROmorphone 2 MG/ML 1 ML SYRINGE IVP PRN (21:35)
[2017-05-30] MEDS: HYDROmorphone 2 MG/ML 1 ML SYRINGE IVP PRN ×3 (03:03→21:12)
--- NOTE | 2017-05-30 08:06 | P.PN ---
Subjective Progress Note Date: 05/30/17 This is a 62-year-old male who was admitted for left hip fracture. Patient has a history of short-term memory loss. Patient is seen and evaluated at bedside today. Patient states his pain is under control. Patient denies any new complaints today. Objective - Vital Signs Vital signs: Vital Signs Temp 98.0 F 05/29/17 21:43 Pulse 56 L 05/29/17 20:50 Resp 16 05/29/17 15:00 BP 122/58 05/29/17 20:50 Pulse Ox 94 L 05/29/17 15:00 Intake & Output 05/29/17 05/30/17 05/30/17 18:59 06:59 18:59 Intake Total 100 Output Total 350 450 Balance -350 -350 Intake: Oral 100 Output: Urine 350 450 Other: Voiding Method Indwelling Catheter Indwelling Catheter # Bowel Movements 2 - Exam On exam patient is alert and oriented 3 and is in no acute distress. There is no deformity of the left lower extremity. There is no ecchymosis or erythema. Calf is soft and nontender to palpation. Neurovascular status and circulatory status are intact to the left lower extremity. - Labs CBC & Chem 7: 05/26/17 18:22 05/26/17 18:22 Assessment and Plan (1) Closed left hip fracture Current Visit: Yes Status: Acute Priority: Medium Code(s): S72.002A - FRACTURE OF UNSP PART OF NECK OF LEFT FEMUR, INIT SNOMED Code(s): 828756346 (2) Fall Current Visit: Yes Status: Acute Code(s): W19.XXXA - UNSPECIFIED FALL, INITIAL ENCOUNTER SNOMED Code(s): 2862438 (3) Memory impairment Current Visit: No Status: Acute Code(s): R41.3 - OTHER AMNESIA SNOMED Code (s): 066929548 Plan: #1. Continue pain control. Valium as needed for muscle spasm. #2. Lovenox and SCDs for DVT prophylaxis #3. Nonweightbearing to the left lower extremity. #4. Hemiarthroplasty is planned for Tuesday this week.
[2017-05-30] MEDS: ENOXAPARIN 40 MG/0.4 ML SYRINGE SQ SCH (08:48)
[2017-05-30] MEDS: METOPROLOL TARTRATE 25 MG TAB PO SCH ×3 (08:49→21:13)
[2017-05-30] MEDS: CYANOCOBALAMIN 500 MCG TAB PO SCH (08:49)
[2017-05-30] MEDS: POLYETHYLENE GLYCOL 3350 17 GM POWD.PACK PO SCH (08:50)
[2017-05-30] MEDS: SENNOSIDES-DOCUSATE SODIUM 1 EACH TAB PO SCH (08:50)
[2017-05-30] MEDS: MULTIVITAMINS, THERA 1 EACH TAB PO SCH (13:10)
--- NOTE | 2017-05-30 15:17 | XR ---
EXAMINATION TYPE: XR chest 1V portable DATE OF EXAM: 05/30/2017 COMPARISON: 05/26/2017 HISTORY: Shortness of breath TECHNIQUE: Frontal and lateral views of the chest are obtained. FINDINGS: Scattered senescent parenchymal changes noted. Hyperinflation compatible with COPD. FLATWORK TIER shunt noted. No evidence for infiltrate. No evidence for atelectasis. No sizable pleural effusion. Heart size is stable. Mediastinal structures are stable and grossly unremarkable. No evidence for hilar prominence. Degenerative changes dorsal spine. IMPRESSION: 1. No evidence for acute pulmonary disease.
--- NOTE | 2017-05-30 17:35 | PN ---
PROGRESS NOTE DATE OF SERVICE: 05/30/17. ATTENDING NOTE: The patient was seen and examined by me. Discussed with nurse practitioner Ms. Avila. Sitting up, comfortable. Left hip fracture, pending surgery. Care was discussed with the patient and . LYNNE / KEMARN: [id number] /
--- NOTE | 2017-05-30 18:04 | P.PN ---
Progress Note - Text Progress Note Date: 05/30/17 DATE OF SERVICE: 05/30/2017 PRESENTING COMPLAINT: Status post fall left hip and side pain HISTORY OF PRESENT ILLNESS: 62-year-old male who sustained a fall home putting trash and a burn barrel slipped and fell on his left side, pain at the left hip. Found to have a subcapital fracture of the left hip, admitted for the same. INTERVAL HISTORY: 05/30/2017: Lying in bed appears comfortable, at the bedside. Left hip pain is well- controlled with some muscle spasms. By does help. Continue nonweightbearing status and Lovenox for DVT prophylaxis. Stooling less frequently today. Tolerating his diet eating 75% or more of his meals. Last BM 05/29/2017. 05/29/2017: Lying in bed appears comfortable. Continues to have left hip pain and some muscle spasming, however Valium and pain medications do help. Continue nonweightbearing status to the left lower extremity. Lovenox for DVT prophylaxis. Has had frequent stooling due to laxative use, laxative currently on hold. Surgery scheduled with Dr. Tracy tentatively for Tuesday, 2017. Patient is tolerating his diet, last BM today, remains on bedrest. 05/28/2017: Patient lying in bed appears comfortable at the bedside. Continues to have left hip pain and some muscle spasming. Orthopedics is ordered Valium for muscle spasms. Continue to be nonweightbearing to left lower extremity. Lovenox was added to patient's regimen for DVT prophylaxis. Left total hip arthroplasty is tentatively scheduled for 05/31/2017. Patient tolerating his diet, last BM prior to admission. Senna and MiraLAX added. 05/27/2017: Patient lying in bed appears comfortable. Does complain of some left hip pain still, pain medications to work well. Patient does have a long-standing history of short-term memory losses so it is difficult for him to remember these things. is at the bedside, patient currently nothing by mouth for possible surgery later today and if not today Tuesday. REVIEW OF SYSTEMS: Done for constitutional ,cardiovascular, GI, pulmonary with relevant findings as above. CURRENT MEDICATIONS Tylenol, vitamin B12, Valium, Lovenox, Dilaudid, Lopressor, multivitamin, Narcan , Zofran, MiraLAX, Senokot-S, Flomax. PHYSICAL EXAM VITAL SIGNS: Temperature 98.3, pulse 102, respiratory rate 16, blood pressure 119/75, oxygen saturation 94% GENERAL APPEARANCE: . Lying in bed, not in distress. HENT: Normocephalic, oral cavity normal, external appearance of the ears/nose normal EYES: Pupils equal. Conjunctiva normal. RESPIRATORY: Respiratory effort normal. Lungs clear to auscultation. CARDIOVASCULAR: First and second sounds normal. No edema. ABDOMEN: Soft. Liver and spleen not palpable. No tenderness. No mass palpable. PSYCHIATRY: Alert and oriented x3. Mood and affect normal. MUSCULOSKELETAL: Left hip has limited range of motion, tender to palpation INVESTIGATIONS: Labs: None new ASSESSMENT: -Subcapital fracture of the left hip secondary to a fall outside, present on admission patient was down for 20 minutes. -Benign prostatic hypertrophy. -Essential hypertension. -Paroxysmal atrial fibrillation, currently in sinus rhythm. PLAN: Patient is is scheduled for surgery on 05/31/2017. Nothing by mouth after midnight. Patient is otherwise medically stable. Plan of care discussed at the bedside we will follow closely. BENCH ASSEMBLER OPERATOR statement: Patient was seen and examined by nurse practitioner Jelly Avila and all elements of the case discussed with attending Dr. Flores
[2017-05-30] MEDS: TAMSULOSIN 0.4 MG CAP.ER.24H PO SCH (21:13)
[2017-05-31] MEDS: HYDROmorphone 2 MG/ML 1 ML SYRINGE IVP PRN (04:07)
[2017-05-31] MEDS ORDERED: MORPHINE SULFATE 4 MG/ML SYRINGE IV PRN (05:20)
[2017-05-31] MEDS ORDERED: MIDAZOLAM 2 MG/2 ML VIAL IV PRN (05:20)
[2017-05-31] MEDS ORDERED: MORPHINE SULFATE 2 MG/ML SYRINGE IV PRN (05:25)
[2017-05-31 07:01] LABS: Basophils # (A) 0.1 k/uL (0-0.2); Basophils % (A) 1 %; Eosinophils # (A) 0.5 k/uL (0-0.7); Eosinophils % (A) 6 %; HCT 41.4 % (39.0-53.0); HGB 13.3 gm/dL (13.0-17.5); Lymphocytes # (A) 0.9 k/uL (1.0-4.8); Lymphocytes % (A) 11 %; MCH 28.6 pg (25.0-35.0); MCHC 32.1 g/dL (31.0-37.0); MCV 89.1 fL (80.0-100.0); Mean Platelet Volume 7.1; Monocytes # (A) 0.7 k/uL (0-1.0); Monocytes % (A) 9 %; Neutrophils # (A) 5.3 k/uL (1.3-7.7); Neutrophils % (A) 70 %; Platelet Count 205 k/uL (150-450); RBC 4.65 m/uL (4.30-5.90); RDW 14.9 % (11.5-15.5); WBC 7.6 k/uL (3.8-10.6)
[2017-05-31 07:11] LABS: INR 1.1 (<1.2); Prothrombin Time 10.8 sec (9.0-12.0)
[2017-05-31 07:21] LABS: Anion Gap 10 mmol/L; Blood Urea Nitrogen 17 mg/dL (9-20); Calcium 9.3 mg/dL (8.4-10.2); Carbon Dioxide 27 mmol/L (22-30); Chloride 102 mmol/L (98-107); Glucose 110 mg/dL (74-99); Potassium 4.5 mmol/L (3.5-5.1); Sodium 139 mmol/L (137-145)
[2017-05-31] MEDS: LACTATED RINGERS 1,000 ML IV SCH ×3 (07:44→09:51)
[2017-05-31] MEDS: ENOXAPARIN 40 MG/0.4 ML SYRINGE SQ SCH (07:45)
[2017-05-31] MEDS: CYANOCOBALAMIN 500 MCG TAB PO SCH (07:45)
[2017-05-31] MEDS: SENNOSIDES-DOCUSATE SODIUM 1 EACH TAB PO SCH (07:45)
[2017-05-31] MEDS: POLYETHYLENE GLYCOL 3350 17 GM POWD.PACK PO SCH (07:45)
[2017-05-31] MEDS: METOPROLOL TARTRATE 25 MG TAB PO SCH ×3 (07:48→22:02)
[2017-05-31] MEDS ORDERED: IV FLUID CONTINUATION 980 ML IV ONE (08:41)
[2017-05-31] MEDS ORDERED: ceFAZolin IN SWFI 2 GM/20 ML SYRINGE IVP ONE (09:16)
[2017-05-31] MEDS ORDERED: KETAMINE 10 MG/ML 20 ML VIAL ONE (09:51)
[2017-05-31] MEDS ORDERED: fentaNYL (PF) 50 MCG/ML 2 ML AMP ONE (09:51)
[2017-05-31] MEDS ORDERED: diphenhydrAMINE 50 MG/ML 1 ML VIAL ONE (09:51)
[2017-05-31] MEDS ORDERED: ceFAZolin 3,000 MG in SODIUM CHLORIDE 0.9% IRRIGATIO 3,000 ML IRRIGATION ONE (09:51)
[2017-05-31] MEDS ORDERED: LACTATED RINGERS 1,000 ML IV ONE (11:00)
--- NOTE | 2017-05-31 11:11 | P.OP ---
Date of Procedure: 05/31/17 Preoperative Diagnosis: Subcapital fracture left hip Postoperative Diagnosis: Subcapital fracture left hip Procedure(s) Performed: Left hip hemiarthroplasty with a direct anterior approach Implants: Jensen and nephew Polarstem size 3 standard Jensen & Nephew tandem unipolar head, 49 mm Jensen & Nephew tandem unipolar sleeve, -3 mm All components were press-fit. Anesthesia: spinal Surgeon: Brenton Tracy Manager Emergency Department #1: Sherri Rizvi Estimated Blood Loss (ml): 100 Pathology: other (Femoral head) Condition: stable Disposition: PACU Indications for Procedure: This is a 62-year-old gentleman that presented to the hospital after a fall with a subcapital fracture of his left hip. It was a lengthy discussion about the treatment options for his left hip including a total hip arthroplasty versus a hemiarthroplasty. Due to his lack of arthritis on the x-ray, as well as a short-term memory loss and also residual weakness on his left side, I recommended a hemiarthroplasty. Informed consent was obtained. Operative Findings: Operative findings are consistent with a subcapital fracture of the left hip Description of Procedure: Patient was seen and evaluated in the preoperative area, consent was reviewed, and the surgical site was marked with a skin marker. Patient was then brought to the operating room and given prophylactic antibiotics intravenously. A spinal anesthetic was administered by the anesthesia department. The patient was then placed on the [place] table with the bony prominences well-padded. The hip area was then prepped and draped in usual sterile fashion. A universal timeout was then performed, which confirmed the patient's name, surgical site, ALLERGIES, and procedure being performed. Next the incision site was located at 1 cm distal and 1 cm lateral to the anterior superior iliac spine. The skin and subcutaneous tissues were sharply incised. Incision was carefully dissected down to the fascia overlying the tensor fascia sulaiman muscle. This fascia was then incised in line with the incision. Next, using blunt finger dissection, the tensor fascia sulaiman muscle was dissected off its investing fascia. The muscle was then carefully retracted laterally with a cobra retractor over the lateral neck of the femur. Next, the circumflex vessels were identified and cauterized using the AquaMantis device. The anterior hip capsule was then exposed. The capsule was then opened and an inverted T fashion. Cobra retractors were then placed intracapsularly. The proximal femur was then visualized. The femoral neck fracture was visualized. A saw was then used to cut the femoral neck at the appropriate level above the lesser trochanter. This bone was then removed. Next, a corkscrew was used to remove the femoral head from the acetabulum. The femoral head was then measured. The femoral head was inspected and found to have no significant arthritic changes. I am was then inspected, and again no significant arthrosis was noted. Decision to perform a hemiarthroplasty was then reached at this point. Attention was then directed to the femur. With the aid of the [place] table, the femur was externally rotated to approximately 130, extended, and abducted under the opposite leg. A side hook was then placed under the proximal femur, and the side hook elevator was used to elevate the proximal femur. Retractors were then placed. A capsular release was performed, as well as a release of the conjoined tendon, which afforded excellent visualization of the proximal femur. Next, a box osteotome was used to lateralize the proximal femur. A handkerchief sample clerk was then used to locate the femoral canal. Sequential broaching was then performed with appropriate size which afforded excellent fixation in the proximal femur. A trial was then placed with appropriate head and neck, and the hip was gently reduced with the aid of the [place] table. Fluoroscopy was then used to check position of the components, as well as to ensure equal leg lengths. The hip was then gently dislocated and the trials were then removed. Final implants were then impacted and the hip was again reduced. Final fluoroscopic x-rays confirmed that the components were in anatomic position, as well as equal leg lengths. The hip was also taken through range of motion, and found to be stable. The hip was then copiously irrigated with antibiotic solution with pulsatile lavage. The hip was then irrigated with Irrisept solution. the fascia was then closed with 2-0 strata fix suture. The subcutaneous tissue was closed with 3-0 Vicryl. The subcuticular tissue was closed with 3-0 strata fix suture. The skin was then closed with Dermabond glue and a sterile silver dressing. The patient was then transferred to the recovery room in stable condition. The talent assistant YONATAN Ball was required due to the complexity of surgery, and the need for skilled mortgage loan assistant for positioning, draping, exposure, retraction, and closure of the wound.
[2017-05-31] MEDS ORDERED: ONDANSETRON 4 MG/2 ML VIAL IVP PRN (11:13)
[2017-05-31] MEDS ORDERED: NALOXONE 0.4 MG/ML 1 ML VIAL IV PRN (11:13)
[2017-05-31] MEDS ORDERED: HYDROmorphone 2 MG/ML 1 ML SYRINGE IVP PRN (11:13)
[2017-05-31] MEDS ORDERED: HYDROmorphone 0.5 MG/0.5 ML SYRINGE IVP PRN (11:13)
[2017-05-31] MEDS ORDERED: hydrOXYzine PAMOATE 25 MG CAP PO PRN (11:13)
[2017-05-31] MEDS ORDERED: MAGNESIUM HYDROXIDE 2,400 MG/10 ML CUP PO PRN (11:13)
--- NOTE | 2017-05-31 12:15 | XR ---
EXAMINATION TYPE: XR Hip Limited LT DATE OF EXAM: 05/31/2017 CLINICAL HISTORY: Left hip pain and osteoarthritis. TECHNIQUE: Single AP portable view of left hip is obtained immediately postoperatively. COMPARISON: None. FINDINGS: Metallic hardware from left hip arthroplasty is seen and appears satisfactory in alignment and position. There is evidence of recent surgery with subcutaneous gas noted laterally. IMPRESSION: Metallic hardware from left hip arthroplasty is satisfactory in position.
[2017-05-31] MEDS: SODIUM CHLORIDE 0.9% 1,000 ML IV SCH (13:02)
[2017-05-31] MEDS: MULTIVITAMINS, THERA 1 EACH TAB PO SCH (13:04)
--- NOTE | 2017-05-31 14:27 | FL ---
Fluoroscopy HISTORY: Anterior hip replacement 16 seconds fluoroscopy time supplied to the referring clinician. 2 intraoperative C-arm images docum ent the procedure. See dictated report from orthopedic surgery.
--- NOTE | 2017-05-31 14:27 | XR ---
Limited left hip HISTORY: Anterior hip replacement Intraoperative C-arm images document the procedure
[2017-05-31] MEDS: ceFAZolin IN SWFI 2 GM/20 ML SYRINGE IVP SCH (17:42)
[2017-05-31] MEDS: HYDROcodone/APAP 5-325MG 1 EACH TAB PO PRN (18:59)
--- NOTE | 2017-05-31 21:56 | PN ---
PROGRESS NOTE DATE OF SERVICE: 05/31/17 ATTENDING NOTE: Patient seen and examined by me. I discussed with nurse practitioner, [place]. The patient is status post left hip surgery today. Pain is sitting up. No chest pain, short of breath. PHYSICAL EXAMINATION: Temperature 97.5, pulse 83, respiratory rate 14, blood pressure 124/86, pulse ox 92% on room air. Lungs are clear. Cardiovascular 1st and 2nd sounds normal. Potassium 4.5, BUN creatinine normal. ASSESSMENT: 1. Status post left total hip arthroplasty. 2. Benign prostatic hypertrophy. 3. Other medical conditions stable. PLAN: Care discussed with the patient and . The patient doing well. MMODL / IJN: [id number] /
[2017-05-31] MEDS: TAMSULOSIN 0.4 MG CAP.ER.24H PO SCH (22:02)
[2017-06-01] MEDS: ceFAZolin IN SWFI 2 GM/20 ML SYRINGE IVP SCH (03:47)
[2017-06-01] MEDS: HYDROcodone/APAP 5-325MG 1 EACH TAB PO PRN ×4 (04:12→21:15)
[2017-06-01] MEDS: SODIUM CHLORIDE 0.9% 1,000 ML IV SCH ×2 (08:11→15:33)
[2017-06-01] MEDS: METOPROLOL TARTRATE 25 MG TAB PO SCH ×3 (09:06→21:11)
[2017-06-01] MEDS: POLYETHYLENE GLYCOL 3350 17 GM POWD.PACK PO SCH (09:06)
[2017-06-01] MEDS: CYANOCOBALAMIN 500 MCG TAB PO SCH (09:06)
[2017-06-01] MEDS: ENOXAPARIN 40 MG/0.4 ML SYRINGE SQ SCH (09:06)
--- NOTE | 2017-06-01 09:26 | XR ---
EXAMINATION TYPE: XR Hip Complete LT DATE OF EXAM: 06/01/2017 COMPARISON: NONE HISTORY: Status post hemiarthroplasty pain postop hip replacement TECHNIQUE: 2 view left hip with mobile apparatus. The crosstable lateral views attempted twice were l argely nondiagnostic. FINDINGS: No acute fractures evident. No obvious dislocation is evident. Postsurgical changes are ernie dent within the soft tissues. The prosthesis appears in normal position in the AP projection. IMPRESSION: 1. Status post hemiarthroplasty of the left hip. No acute osseous abnormality is evident.
[2017-06-01] MEDS: SENNOSIDES-DOCUSATE SODIUM 1 EACH TAB PO SCH (09:47)
--- NOTE | 2017-06-01 10:27 | P.PN ---
Subjective Progress Note Date: 06/01/17 This is a 62-year-old male who is admitted for left hip fracture. Patient is status post left hemiarthroplasty with direct anterior approach. This is postoperative day #1. Patient has a history of short-term memory loss. Patient is seen and evaluated at bedside today. Patient reports stiffness and muscle soreness to the left hip. who is at bedside states the patient has been up out of bed a couple of times today. Objective - Vital Signs Vital signs: Vital Signs Temp 98.1 F 06/01/17 07:54 Pulse 88 06/01/17 07:54 Resp 16 06/01/17 07:54 BP 124/79 06/01/17 07:54 Pulse Ox 95 06/01/17 07:54 Intake & Output 05/31/17 06/01/17 06/01/17 18:59 06:59 18:59 Intake Total 4021 1000 180 Output Total 140 1100 Balance 3881 -100 180 Weight 72.575 kg Intake: IV 1881 Intake, IV Titration 520 520 Amount Lactated Ringers 1,000 ml 520 As IV .[facility] Rx#: [id number] Sodium Chloride 0.9% 1, 520 000 ml @ 65 mls/hr IV . [id number] Rx#:[id number] Oral 1620 480 180 Output: Urine 40 1100 Estimated Blood Loss 100 Other: Voiding Method Indwelling Catheter Indwelling Catheter # Voids 1 - Exam On exam patient is resting comfortably in bed and is in no acute distress. Dressing is clean, dry and intact. There is mild soft tissue swelling. Patient has difficulty with active range of motion. Passive range of motion is painful. Calf is soft and nontender to palpation. There is a blister and erythema to the left heel. Neurovascular status and circulatory status are intact to the left lower extremity. - Labs CBC & Chem 7: 05/31/17 06:40 05/31/17 06:40 Labs: Microbiology - Last 24 Hours (Table) 05/30/17 17:30 Urine Culture - Final Urine,Catheterized Assessment and Plan (1) Closed left hip fracture Current Visit: Yes Status: Acute Priority: Medium Code(s): S72.002A - FRACTURE OF UNSP PART OF NECK OF LEFT FEMUR, INIT SNOMED Code(s): 750718140 (2) Fall Current Visit: Yes Status: Acute Code(s): W19.XXXA - UNSPECIFIED FALL, INITIAL ENCOUNTER SNOMED Code(s): 3213759 (3) Memory impairment Current Visit: No Status: Acute Code(s): R41.3 - OTHER AMNESIA SNOMED Code (s): 994084365 (4) Decubitus ulcer of left heel Current Visit: Yes Status: Acute Code(s): L89.629 - PRESSURE ULCER OF LEFT HEEL, UNSPECIFIED STAGE SNOMED Code(s): 950050896 Plan: #1. Continue pain control. Valium as needed for muscle spasm. #2. Lovenox and SCDs for DVT prophylaxis #3. Wound care consult and heel protector for left heel decubitus ulcer. #4. X-rays of the left hip show a left hemiarthroplasty in good position and alignment. Weightbearing as tolerated to the left lower extremity. #5. Patient will likely discharge to rehab when able.
[2017-06-01] MEDS: MULTIVITAMINS, THERA 1 EACH TAB PO SCH (12:53)
--- NOTE | 2017-06-01 17:48 | P.PN ---
Progress Note - Text Progress Note Date: 06/01/17 DATE OF SERVICE: 05/31/2017 PRESENTING COMPLAINT: Status post fall left hip and side pain HISTORY OF PRESENT ILLNESS: 62-year-old male who sustained a fall home putting trash and a burn barrel slipped and fell on his left side, pain at the left hip. Found to have a subcapital fracture of the left hip, admitted for the same. INTERVAL HISTORY: 05/31/2017: Lying in bed appears comfortable, at the bedside patient is currently nothing by mouth for surgery this morning. Nonweightbearing status continues as well nothing by mouth status. No further episodes of stooling. Last BM . 05/30/2017: Lying in bed appears comfortable, at the bedside. Left hip pain is well- controlled with some muscle spasms. Valium helps. Continue nonweightbearing status and Lovenox for DVT prophylaxis. Stooling less frequently today. Tolerating his diet eating 75% or more of his meals. Last BM 05/29/2017. 05/29/2017: Lying in bed appears comfortable. Continues to have left hip pain and some muscle spasming, however Valium and pain medications do help. Continue nonweightbearing status to the left lower extremity. Lovenox for DVT prophylaxis. Has had frequent stooling due to laxative use, laxative currently on hold. Surgery scheduled with Dr. Tracy tentatively for Tuesday, 2017. Patient is tolerating his diet, last BM today, remains on bedrest. 05/28/2017: Patient lying in bed appears comfortable at the bedside. Continues to have left hip pain and some muscle spasming. Orthopedics is ordered Valium for muscle spasms. Continue to be nonweightbearing to left lower extremity. Lovenox was added to patient's regimen for DVT prophylaxis. Left total hip arthroplasty is tentatively scheduled for 05/31/2017. Patient tolerating his diet, last BM prior to admission. Senna and MiraLAX added. 05/27/2017: Patient lying in bed appears comfortable. Does complain of some left hip pain still, pain medications to work well. Patient does have a long-standing history of short-term memory losses so it is difficult for him to remember these things. is at the bedside, patient currently nothing by mouth for possible surgery later today and if not today Tuesday. REVIEW OF SYSTEMS: Done for constitutional ,cardiovascular, GI, pulmonary with relevant findings as above. CURRENT MEDICATIONS Tylenol, vitamin B12, Valium, Lovenox, Dilaudid, Lopressor, multivitamin, Narcan , Zofran, MiraLAX, Senokot-S, Flomax. PHYSICAL EXAM VITAL SIGNS: Temperature 99.2, pulse 85, respirations 18, blood pressure 121/76, oxygen saturation 93% on room air. GENERAL APPEARANCE: . Lying in bed, not in distress. HENT: Normocephalic, oral cavity normal, external appearance of the ears/nose normal. EYES: Pupils equal. Conjunctiva normal RESPIRATORY: Respiratory effort normal. Lungs clear to auscultation. CARDIOVASCULAR: First and second sounds normal. No edema. ABDOMEN: Soft. Liver and spleen not palpable. No tenderness. No mass palpable. PSYCHIATRY: Alert and oriented x3. Mood and affect normal. MUSCULOSKELETAL: Left hip has limited range of motion, tender to palpation INVESTIGATIONS: Labs: None new ASSESSMENT: -Subcapital fracture of the left hip secondary to a fall outside present on admission patient was down for 20 minutes. -Benign prostatic hypertrophy. -Essential hypertension. -Paroxysmal atrial fibrillation, currently in sinus rhythm. PLAN: Patient is is scheduled for surgery on today. Remains Nothing by mouth. Patient is otherwise medically stable. Plan of care discussed at the bedside we will follow closely. RN FLOAT statement: Patient was seen and examined by nurse practitioner Jelly Avila and all elements of the case discussed with attending Dr. Flores
--- NOTE | 2017-06-01 18:01 | P.PN ---
Progress Note - Text Progress Note Date: 06/01/17 DATE OF SERVICE: 06/01/2017 PRESENTING COMPLAINT: Status post fall left hip and side pain HISTORY OF PRESENT ILLNESS: 62-year-old male who sustained a fall home putting trash and a burn barrel slipped and fell on his left side, pain at the left hip. Found to have a subcapital fracture of the left hip, admitted for the same. Status post left hip hemiarthroplasty with a direct anterior approach INTERVAL HISTORY: 06/01/2017: Sitting up in the recliner comfortable appearing, and family at the bedside. No acute overnight events, vital signs stable afebrile. Found to have a decubitus ulcer on his left heel, heel protective boot placed on the left foot wound cares been consulted. Agreeable to work with physical therapy tolerating his diet eating between 50 and 75% of his meals. Last BM 05/30/2017. 05/31/2017: Lying in bed appears comfortable, at the bedside patient is currently nothing by mouth for surgery this morning. Nonweightbearing status continues as well nothing by mouth status. No further episodes of stooling. Last BM . 05/30/2017: Lying in bed appears comfortable, at the bedside. Left hip pain is well- controlled with some muscle spasms. Valium helps. Continue nonweightbearing status and Lovenox for DVT prophylaxis. Stooling less frequently today. Tolerating his diet eating 75% or more of his meals. Last BM 05/29/2017. 05/29/2017: Lying in bed appears comfortable. Continues to have left hip pain and some muscle spasming, however Valium and pain medications do help. Continue nonweightbearing status to the left lower extremity. Lovenox for DVT prophylaxis. Has had frequent stooling due to laxative use, laxative currently on hold. Surgery scheduled with Dr. Tracy tentatively for Tuesday, 2017. Patient is tolerating his diet, last BM today, remains on bedrest. 05/28/2017: Patient lying in bed appears comfortable at the bedside. Continues to have left hip pain and some muscle spasming. Orthopedics is ordered Valium for muscle spasms. Continue to be nonweightbearing to left lower extremity. Lovenox was added to patient's regimen for DVT prophylaxis. Left total hip arthroplasty is tentatively scheduled for /16/2018. Patient tolerating his diet, last BM prior to admission. Senna and MiraLAX added. 05/27/2017: Patient lying in bed appears comfortable. Does complain of some left hip pain still, pain medications to work well. Patient does have a long-standing history of short-term memory losses so it is difficult for him to remember these things. is at the bedside, patient currently nothing by mouth for possible surgery later today and if not today Tuesday. REVIEW OF SYSTEMS: Done for constitutional ,cardiovascular, GI, pulmonary with relevant findings as above. CURRENT MEDICATIONS Tylenol, vitamin B12, Valium, Lovenox, Dilaudid, Lopressor, multivitamin, Narcan , Zofran, MiraLAX, Senokot-S, Flomax. PHYSICAL EXAM VITAL SIGNS: Temperature 98.1, pulse 80, respirations 16, blood pressure 124/79, oxygen saturation 95% on room air. GENERAL APPEARANCE: Sitting up in the recliner, not in distress. HENT: Normocephalic, oral cavity normal, external appearance of ears/nose normal. EYES: Pupils equal. Conjunctiva normal. RESPIRATORY: Respiratory effort normal. Lungs clear to auscultation. CARDIOVASCULAR: First and second sounds normal. No edema. ABDOMEN: Soft. Liver and spleen not palpable. No tenderness. No mass palpable. PSYCHIATRY: Able to answer simple straightforward questions. Mood and affect normal. MUSCULOSKELETAL: Left hip covered with a dry dressing tender to palpation INTEGUMENT: Left heel wound INVESTIGATIONS: Labs: None new ASSESSMENT: -Subcapital fracture of the left hip secondary to a fall outside present on admission status post left hip hemiarthroplasty with the direct anterior approach -Benign prostatic hypertrophy. -Essential hypertension. -Paroxysmal atrial fibrillation, currently in sinus rhythm. -Left heel decubitus ulcer in a patient who was bed bound from a subcapital fracture PLAN: Continue current medication and treatment plan increase activity per orthopedics. Left heel has decubitus ulcer wound care is been consulted heel protector in place. Discharge planning for rehab when stable from an orthopedic standpoint. Of care discussed the bedside with patient and family and they're agreeable we will follow closely. BROADCAST SUPERVISOR statement: Patient was seen and examined by nurse practitioner Jelly Avila and all elements of the case discussed with attending Dr. Flores
--- NOTE | 2017-06-01 19:40 | PN ---
PROGRESS NOTE DATE OF SERVICE: 06/01/2017 ATTENDING NOTE: This patient was seen and examined by me. I discussed the case with the nurse practitioner Ms. Avila. Patient is sitting up in a recliner, comfortable. Pain is controlled. Did tolerate his diet. No chest pain or shortness of breath. Did work with therapy. On examination, temperature 98.1, pulse 80, respiration 16, blood pressure 124/79, pulse ox 95% on room air. Lungs are clear. CARDIOVASCULAR: First and second sounds normal. INVESTIGATIONS: White count 7.6, hemoglobin 4.5. ASSESSMENT: 1. Left hip hemiarthroplasty. 2. Essential hypertension. PLAN: Continue current medication and treatment plan. Care was discussed with the patient and his at the bedside. Questions were answered. Will discontinue the IV fluids. MMFRANCESL / KEMARN: [id number] /
[2017-06-01] MEDS: TAMSULOSIN 0.4 MG CAP.ER.24H PO SCH (21:12)
[2017-06-02] MEDS: LACTATED RINGERS 1,000 ML IV SCH (01:43)
[2017-06-02] MEDS: HYDROcodone/APAP 5-325MG 1 EACH TAB PO PRN ×2 (04:37→12:05)
[2017-06-02 09:20] VITALS: RESP 16
[2017-06-02] MEDS: ENOXAPARIN 40 MG/0.4 ML SYRINGE SQ SCH (09:23)
[2017-06-02] MEDS: METOPROLOL TARTRATE 25 MG TAB PO SCH (09:23)
[2017-06-02] MEDS: MULTIVITAMINS, THERA 1 EACH TAB PO SCH (09:23)
[2017-06-02] MEDS: POLYETHYLENE GLYCOL 3350 17 GM POWD.PACK PO SCH (09:23)
[2017-06-02] MEDS: CYANOCOBALAMIN 500 MCG TAB PO SCH (09:23)
[2017-06-02] MEDS: SENNOSIDES-DOCUSATE SODIUM 1 EACH TAB PO SCH (09:26)
--- NOTE | 2017-06-02 09:59 | P.CONS ---
History of Present Illness - Reason for Consult Consult date: 06/02/17 Blister left heel - History of Present Illness This is a 62-year-old male patient who presented on May 26 after a fall where he slipped and sustained a left hip fracture. On May 31 he underwent hemiarthroplasty, anterior approach with Dr. Tracy. During his hospitalization, patient developed a large blister to the left heel and thus this ID consult was requested. Patient was noted to have 1 documented fever of 101.5 on May 27 and none since then. White count is 7.6. He does have a boot in place to the left heel. [facility]. Patient has significant history for esophageal cancer diagnosed in September 2016 status post chemotherapy and radiation therapy at [facility] followed by esophageal tumor resection at [facility]. Patient lost between 40 and 50 pounds at that time. He is not eating much here not taking much Ensure. His states that he does take a protein supplement at home as he is trying to gain weight. 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 Review of Systems All systems: negative Constitutional: Denies chills, Denies fever Eyes: denies blurred vision, denies pain Ears, nose, mouth and throat: Denies headache, Denies sore throat Cardiovascular: Denies chest pain, Denies shortness of breath Respiratory: Denies cough Gastrointestinal: Denies abdominal pain, Denies diarrhea, Denies nausea, Denies vomiting Musculoskeletal: Denies myalgias Integumentary: Reports wounds, Denies pruritus, Denies rash Neurological: Denies numbness, Denies weakness Psychiatric: Denies anxiety, Denies depression Endocrine: Denies fatigue, Denies weight change Past Medical History Past Medical History: Atrial Fibrillation, Cancer, Hypertension, Seizure Disorder Additional Past Medical History / Comment(s): past hx. 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 ago-residual short term memory impairment, & comprehension, balance problems @times History of Any Multi-Drug Resistant Organisms: None Reported Past Surgical History: Cholecystectomy Additional Past Surgical History / Comment(s): repair of aneurysm w/clip, has brain shunt-not sure if still functions, repair torn retina Past Anesthesia/Blood Transfusion Reactions: Previous Problems w/ Anesthesia Additional Past Anesthesia/Blood Transfusion Reaction / Comm: very slow to wake up-doesn't need much per spouse Past Psychological History: No Psychological Hx Reported Smoking Status: Never smoker Past Alcohol Use History: Rare Additional Past Alcohol Use History / Comment(s): smoked occasional cigars 30 yrs. ago. There was also recreational drug use in the 60s and 70s but none at this time. He lives at home with his . 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 No pets in the home, no service. They have traveled extensively in the [facility]. Past Drug Use History: None Reported - Past Family History Mother Family Medical History: Unable to Obtain Medications and Allergies Home Medications Medication Instructions Recorded Confirmed Type Multivitamin [Men's Multi-Vitamin] 1 tab PO DAILY 09/22/16 05/26/17 History Cyanocobalamin (Vitamin B-12) 5,000 mcg SL DAILY 05/26/17 05/26/17 History [Vitamin B12] Metoprolol Tartrate [Lopressor] 25 mg PO TID 05/26/17 05/26/17 History Tamsulosin HCl [Flomax] 0.4 mg PO HS 05/26/17 05/26/17 History Acetaminophen Tab [Tylenol] 650 mg PO Q6HR PRN tab 06/02/17 Rx Aspirin 325 mg PO BID #60 tab 06/02/17 Rx Aspirin 325 mg PO BID 30 Days #30 tab 06/02/17 Rx HYDROcodone/APAP 5-325MG [[place] 1 - 2 tab PO Q4-6H PRN #90 tab 06/02/17 Rx 5-325] Sennosides [Senokot] 1 tab PO BID #60 tablet 06/02/17 Rx Allergies Allergy/AdvReac Type Severity Reaction Status Date / Time No Known Allergies Allergy Verified 05/26/17 18:32 Physical Exam Vitals: Vital Signs Temp Pulse Pulse Resp BP BP Pulse Ox 06/02/17 07:00 98.1 F 101 H 16 130/72 97 06/02/17 02:44 98.8 F 103 H 18 131/79 95 06/01/17 21:01 98.6 F 101 H 18 117/78 97 06/01/17 14:03 97.8 F 90 16 114/77 95 Intake and Output 06/01/17 06/02/17 06/02/17 22:59 06:59 14:59 Intake Total 380 500 100 Output Total 350 Balance 380 150 100 Intake: IV 130 Sodium Chloride 0.9% 1, 130 000 ml @ 65 mls/hr IV . [id number] [facility] Rx#:[id number] Oral 250 500 100 Output: Urine 350 Other: # Voids 1 Gen: This is a 62-year-old male patient sitting up in a chair at the bedside and appears to be in no acute distress. Noted patient has his legs elevated and boot in place to the left foot. HEENT: Head is atraumatic, normocephalic. Pupils equal, round. Sclerae is anicteric. Conjunctiva pink. Mucous membranes of the mouth are slightly dry. No thrush noted. NECK: Supple. No JVD. No lymphadenopathy. No thyromegaly. LUNGS: Clear to auscultation. No wheezes or rhonchi. No intercostal retractions. HEART: Irregular rate and rhythm. No murmur. ABDOMEN: Soft. Bowel sounds are present. No masses. No tenderness. EXTREMITIES: No pedal edema. No calf tenderness. Dressing in place to the left hip surgical wound site. No breakthrough drainage, bleeding. Multiple removed from the left foot which reveals a large posterior heel blister. NEUROLOGICAL: Patient is awake, alert and oriented x3. Patient is able to answer all questions appropriately and follow directions but noted to have short -term memory deficit. Results Results: Laboratory Results WBC 7.6 k/uL (3.8-10.6) 05/31/17 06:40 RBC 4.65 m/uL (4.30-5.90) 05/31/17 06:40 Hgb 13.3 gm/dL (13.0-17.5) 05/31/17 06:40 Hct 41.4 % (39.0-53.0) 05/31/17 06:40 MCV 89.1 fL (80.0-100.0) 05/31/17 06:40 MCH 28.6 pg (25.0-35.0) 05/31/17 06:40 MCHC 32.1 g/dL (31.0-37.0) 05/31/17 06:40 RDW 14.9 % (11.5-15.5) 05/31/17 06:40 Plt Count 205 k/uL (150-450) 05/31/17 06:40 Neutrophils % 70 % 05/31/17 06:40 Lymphocytes % 11 % 05/31/17 06:40 Monocytes % 9 % 05/31/17 06:40 Eosinophils % 6 % 05/31/17 06:40 Basophils % 1 % 05/31/17 06:40 Neutrophils # 5.3 k/uL (1.3-7.7) 05/31/17 06:40 Lymphocytes # 0.9 k/uL (1.0-4.8) L 05/31/17 06:40 Monocytes # 0.7 k/uL (0-1.0) 05/31/17 06:40 Eosinophils # 0.5 k/uL (0-0.7) 05/31/17 06:40 Basophils # 0.1 k/uL (0-0.2) 05/31/17 06:40 PT 10.8 sec (9.0-12.0) 05/31/17 06:40 INR 1.1 (<1.2) 05/31/17 06:40 APTT 23.2 sec (22.0-30.0) 05/26/17 18:22 Sodium 139 mmol/L (137-145) 05/31/17 06:40 Potassium 4.5 mmol/L (3.5-5.1) 05/31/17 06:40 Chloride 102 mmol/L (98-107) 05/31/17 06:40 Carbon Dioxide 27 mmol/L (22-30) 05/31/17 06:40 Anion Gap 10 mmol/L 05/31/17 06:40 BUN 17 mg/dL (9-20) 05/31/17 06:40 Creatinine 0.54 mg/dL (0.66-1.25) L 05/31/17 06:40 Est GFR (MDRD) Af Amer >60 (>60 ml/min/1.73 sqM) 05/31/17 06:40 Est GFR (MDRD) Non-Af >60 (>60 ml/min/1.73 sqM) 05/31/17 06:40 Glucose 110 mg/dL (74-99) H 05/31/17 06:40 Calcium 9.3 mg/dL (8.4-10.2) 05/31/17 06:40 Total Bilirubin 0.4 mg/dL (0.2-1.3) 05/26/17 18:22 AST 24 U/L (17-59) 05/26/17 18:22 ALT 35 U/L (21-72) 05/26/17 18:22 Alkaline Phosphatase 108 U/L (38-126) 05/26/17 18:22 Total Protein 6.9 g/dL (6.3-8.2) 05/26/17 18: Albumin 4.1 g/dL (3.5-5.0) 05/26/17 18:22 Blood Type A Positive 05/31/17 08:25 Blood Type Confirm A Positive 05/31/17 06:40 Blood Type Recheck CABO Indicated 05/31/17 08:25 Antibody Screen NEGATIVE 05/31/17 08:25 Spec Expiration Date 06/03/2017 - 2325 05/31/17 08:25 CBC & Chem 7: 05/31/17 06:40 05/31/17 06:40 Assessment and Plan Plan: This is a 62-year-old male patient who presented to the hospital with a left hip fracture after a slip and fall status post hemiarthroplasty anterior approach. Patient is scheduled for discharge to [facility] rehab today. During his hospitalization, patient developed a left heel blister. Waffle boot is in place to offload. Continue supportive care. Further recommendations as patient progresses. The above dictated assessment and findings were discussed with Dr. Do. The impression and plan of care have been directed as dictated. Trisha Onofre nurse practitioner acting as scribe for Dr. Do.
--- NOTE | 2017-06-02 13:31 | CDI ---
Last Revision, April 2017 Documentation Clarification Form Date: 06/02/2017 12:57:00 PM From: Lilly Engle RN,CCDS Admit Date: 05/26/2017 7:44:00 PM Patient Name: Umesh Jarquin Visit Number: [id number] Discharge Date: ATTENTION: The Clinical Documentation Specialists (CDI) and [facility] Coding Staff appreciate your assistance in clarifying documentation. Please respond to the clarification below the line at the bottom and electronically sign. The CDI & [facility] Coding staff will review the response and follow-up if needed. Please note: Queries are made part of the Legal Health Record. If you have any questions, please contact the author of this message via ITS. Dr. Brenton Tracy/Sherri Rizvi PA-C The following has been documented in your progress notes: Decubitus ulcer of left heel. History/Risk Factors: Left hip fracture, Atrial Fibrillation, Cancer, Hypertension Clinical Indicators: Present after slip and fall onto his left hip. He was down approximately 20 min. He is post op left hip hemiarthroplasty. 05/27/17 H/P Physical exam: left lower extremity shows a shortened leg. The knee , ankle and foot are benign in appearance. 06/01/17 Progress note has blister and erythema to the left heel with diagnosis of decubitus ulcer to left heel. Treatment: Heel protector (waffle boot) Wound care consult Protein supplements Definition of Present on Admission (POA): A diagnosis present at the time the order for admission to inpatient status was written. For each diagnosis, documentation must be clear to determine if the condition was present at the time of the patients inpatient admission or developed during the hospital stay. Please clarify in progress notes and discharge summary as to whether the decubitus ulcer of left heel was: Y = Yes, the condition was present at the time of the order for inpatient admission. N = No, the condition was not present at the time of the order for inpatient admission. W = Clinically undetermined if the condition was present at the time of the order for inpatient admission. Please continue to document in your progress notes and discharge summary in order to capture severity of illness and risk of mortality. Include clinical findings that support your diagnosis. N = No, the condition was not present at the time of the order for inpatient admission. LINNEAD
[2017-06-02 14:09] VITALS: BP 115/70; PULSE 97; TEMP 98
--- NOTE | 2017-06-02 16:06 | P.DS ---
Providers Date of admission: 05/26/17 19:44 Expected date of discharge: 06/02/17 Attending physician: Brenton Tracy Consults: 05/26/17 19:14 Consult Physician Stat Consulting Provider: Vic Chaudhary Consult Reason/Comments: Surgical clearance Do you want consulting provider notified?: Yes 06/01/17 09:36 Consult Physician Routine Consulting Provider: Umesh Do Reason/Comments: wound care, decubitus ulcer left heel Do you want consulting provider notified?: Yes Primary care physician: Claude Deluna - Discharge Diagnosis(es) (1) Closed left hip fracture Current Visit: Yes Status: Acute Priority: Medium (2) Fall Current Visit: Yes Status: Acute (3) Memory impairment Current Visit: No Status: Acute (4) Decubitus ulcer of left heel Current Visit: Yes Status: Acute Hospital Course: This is a 62-year-old male who sustained a left femoral neck fracture after a fall on 05/26/2017. The patient presents for evaluation. After discussion and consideration patient elects to proceed with left hemiarthroplasty with direct anterior approach. The patient is seen preoperatively by Dr. Tracy and cleared for surgery. Patient is admitted to [facility] on 05/26/2017 and left hemiarthroplasty was performed on 05/31/2017. The procedures performed without complication or sequelae. The patient is doing well postoperatively. Labs and vital signs are stable on day of discharge. Patient developed a blister to the left heel during admission and this is treated with waffle boot and wound care consult per infectious disease. On day of discharge patient's hip incision is healing well. There is minimal erythema. There is no drainage noted at this time. There is minimal soft tissue swelling to the hip and thigh. Patient has full foot and ankle motion without difficulty or pain. Neurovascular status to the left lower extremity is intact. Patient is discharged to rehab in good condition. Please see med rec for accurate list of home medications. Patient Condition at Discharge: Stable Plan - Discharge Summary New Discharge Prescriptions: New HYDROcodone/APAP 5-325MG [[place] 5-325] 1 - 2 tab PO Q4-6H PRN #90 tab PRN Reason: Pain Sennosides [Senokot] 1 tab PO BID #60 tablet Acetaminophen Tab [Tylenol] 650 mg PO Q6HR PRN tab PRN Reason: Fever And/ Or Pain Aspirin 325 mg PO BID 30 Days #30 tab Aspirin 325 mg PO BID #60 tab Continue Multivitamin [Men's Multi-Vitamin] 1 tab PO DAILY Metoprolol Tartrate [Lopressor] 25 mg PO TID Cyanocobalamin (Vitamin B-12) [Vitamin B12] 5,000 mcg SL DAILY Tamsulosin HCl [Flomax] 0.4 mg PO HS Discharge Medication List Multivitamin [Men's Multi-Vitamin] 1 tab PO DAILY 09/22/16 [History] Cyanocobalamin (Vitamin B-12) [Vitamin B12] 5,000 mcg SL DAILY 05/26/17 [History ] Metoprolol Tartrate [Lopressor] 25 mg PO TID 05/26/17 [History] Tamsulosin HCl [Flomax] 0.4 mg PO HS 05/26/17 [History] Acetaminophen Tab [Tylenol] 650 mg PO Q6HR PRN tab 06/02/17 [Rx] Aspirin 325 mg PO BID #60 tab 06/02/17 [Rx] Aspirin 325 mg PO BID 30 Days #30 tab 06/02/17 [Rx] HYDROcodone/APAP 5-325MG [[place] 5-325] 1 - 2 tab PO Q4-6H PRN #90 tab 06/02/17 [ Rx] Sennosides [Senokot] 1 tab PO BID #60 tablet 06/02/17 [Rx] Follow up Appointment(s)/Referral(s): None,Stated [REFERRING] - 1-2 days Brenton Tracy DO [Doctor of Osteopathic Medicine] - 06/17/17 9:45 am Activity/Diet/Wound Care/Special Instructions: dysphagia diet chopped/soft foods Weightbearing as tolerated with walker Leave dressing intact. Dressing may be removed by home care nurse in 7 days, . May shower with dressing on. Follow-up with [facility] in 2 weeks, please call with any questions or concerns [phone] Discharge Disposition: TRANSFER TO SNF/ECF
--- NOTE | 2017-06-02 21:34 | P.PN ---
Progress Note - Text Progress Note Date: 06/02/17 DATE OF SERVICE: 06/02/2017 PRESENTING COMPLAINT: Status post fall left hip and side pain HISTORY OF PRESENT ILLNESS: 62-year-old male who sustained a fall home putting trash and a burn barrel slipped and fell on his left side, pain at the left hip. Found to have a subcapital fracture of the left hip, admitted for the same. Status post left hip hemiarthroplasty with a direct anterior approach INTERVAL HISTORY: 06/02/2017: Sitting in the recliner comfortable, at the bedside. No acute overnight events, vital signs stable afebrile. Dr. Do evaluated patient's left blister, waffle boot in place. Agreeable to work with physical therapy, tolerating his diet eating between 50 and 75% of his meals, last BM 06/01/2017. 06/01/2017: Sitting up in the recliner comfortable appearing, and family at the bedside. No acute overnight events, vital signs stable afebrile. Found to have a decubitus ulcer on his left heel, heel protective boot placed on the left foot wound cares been consulted. Agreeable to work with physical therapy tolerating his diet eating between 50 and 75% of his meals. Last BM 05/30/2017. 05/31/2017: Lying in bed appears comfortable, at the bedside patient is currently nothing by mouth for surgery this morning. Nonweightbearing status continues as well nothing by mouth status. No further episodes of stooling. Last BM . 05/30/2017: Lying in bed appears comfortable, at the bedside. Left hip pain is well- controlled with some muscle spasms. Valium helps. Continue nonweightbearing status and Lovenox for DVT prophylaxis. Stooling less frequently today. Tolerating his diet eating 75% or more of his meals. Last BM 05/29/2017. 05/29/2017: Lying in bed appears comfortable. Continues to have left hip pain and some muscle spasming, however Valium and pain medications do help. Continue nonweightbearing status to the left lower extremity. Lovenox for DVT prophylaxis. Has had frequent stooling due to laxative use, laxative currently on hold. Surgery scheduled with Dr. Tracy tentatively for Tuesday, 2017. Patient is tolerating his diet, last BM today, remains on bedrest. 05/28/2017: Patient lying in bed appears comfortable at the bedside. Continues to have left hip pain and some muscle spasming. Orthopedics is ordered Valium for muscle spasms. Continue to be nonweightbearing to left lower extremity. Lovenox was added to patient's regimen for DVT prophylaxis. Left total hip arthroplasty is tentatively scheduled for 05/31/2017. Patient tolerating his diet, last BM prior to admission. Senna and MiraLAX added. 05/27/2017: Patient lying in bed appears comfortable. Does complain of some left hip pain still, pain medications to work well. Patient does have a long-standing history of short-term memory losses so it is difficult for him to remember these things. is at the bedside, patient currently nothing by mouth for possible surgery later today and if not today Tuesday. REVIEW OF SYSTEMS: Done for constitutional ,cardiovascular, GI, pulmonary with relevant findings as above. CURRENT MEDICATIONS Tylenol, vitamin B12, Valium, Lovenox, Dilaudid, Lopressor, multivitamin, Narcan , Zofran, MiraLAX, Senokot-S, Flomax. PHYSICAL EXAM VITAL SIGNS: Temperature 98.1, pulse 101, respiratory rate 16, blood pressure 130/72, oxygen saturation 97% on room air. GENERAL APPEARANCE: Sitting up in the recliner, not in distress. HENT: Normocephalic, oral cavity normal, external appearance of ears/nose normal. EYES: Pupils equal. Conjunctiva normal. RESPIRATORY: Respiratory effort normal. Lungs clear to auscultation. CARDIOVASCULAR: First and second sounds normal. No edema. ABDOMEN: Soft. Liver and spleen not palpable. No tenderness. No mass palpable. PSYCHIATRY: Able to answer simple straightforward questions. Mood and affect normal. MUSCULOSKELETAL: Left hip covered with a dry dressing tender to palpation INTEGUMENT: Left heel wound with waffle boot for offloading INVESTIGATIONS: Labs: None new ASSESSMENT: -Subcapital fracture of the left hip secondary to a fall outside present on admission status post left hip hemiarthroplasty with the direct anterior approach -Benign prostatic hypertrophy. -Essential hypertension. -Paroxysmal atrial fibrillation, currently in sinus rhythm. -Left heel decubitus ulcer in a patient who was bed bound from a subcapital fracture PLAN: Continue current medication and treatment plan increase activity per orthopedics. Left heel has decubitus ulcer heel protector in place. Discharge planning today to [facility] bed rehab. Overall condition improved and is stable for discharge. OPERATIONS RESEARCH ENGINEER statement: Patient was seen and examined by nurse practitioner Jelly Avila and all elements of the case discussed with attending Dr. Flores
--- NOTE | 2017-06-02 21:44 | P.CON ---
Consult Note - . Consult date: 06/02/17 Assessment/Plan:: This is a 62-year-old male patient who presented on May 26 after a fall where he slipped and sustained a left hip fracture. On May 31 he underwent hemiarthroplasty, anterior approach with Dr. Tracy. During his hospitalization, patient developed a large blister to the left heel and thus this ID consult was requested. Patient was noted to have 1 documented fever of 101.5 on May 27 and none since then. White count is 7.6. He does have a boot in place to the left heel. Discharge plan is [facility] swelling bed. Patient has significant history for esophageal cancer diagnosed in September 2016 status post chemotherapy and radiation therapy at [facility] followed by esophageal tumor resection at [facility]. Patient lost between 40 and 50 pounds at that time. He is not eating much here not taking much Ensure. His states that he does take a protein supplement at home as he is trying to gain weight. Patient also has history of cerebral aneurysm status post clipping and HYDRANT SETTER shunt that left him initially paralyzed on the left side and now with minimal neglect on the left and short-term memory impairment along with balance difficulty. Please see the consult note as dictated by nurse practitioner Mrs. Trisha Onofre. Medicine the patient is doing relatively well. As noted has had significant illness over the last year. is concerned because the development of the blisters from the left heel likely related to lack of motion due to his neglect of his left side. The patient is now with a foam offloading boot. This should be utilized at all times. A foam dressing can be used to protect the heel. And a surgical shoe or something similar can be utilized when he is up with his physical therapy to he'll receive at rehab. We discussed the importance of protein intake due to his low protein level. This will help with his healing. Fortunately his will help him at the extended care facility to receive his nutrition. I agree with evaluation, assessment and plan is dictated by nurse practitioner Mrs. Trisha Onofre.
--- NOTE | 2017-06-02 23:37 | PN ---
PROGRESS NOTE DATE OF SERVICE: 06/02/2017. ATTENDING NOTE: This patient was seen and examined by me. I discussed the case with the nurse practitioner Ms. Avila. The patient is doing well, tolerating a diet. Lungs are clear. CARDIOVASCULAR: First and second sounds normal. Left heel blister with a boot in place. Seen by Dr. Do. The patient is medically stable otherwise. MMODL / IJN: [id number] /
--- NOTE | 2017-07-04 13:59 | PN ---
PROGRESS NOTE ADDENDUM: DATE OF SERVICE: 05/30/2017 ATTENDING NOTE: Patient seen and examined by me. I discussed with nurse practitioner, Williamsera. Vital signs noted. Lungs are clear. CARDIOVASCULAR: First and second sounds are normal. Left hip fracture, pending surgery. Care was discussed with the patient and . MMODL / IJN: [id number] /
== END 2017-06-02 16:15 | disposition still patient (30) | DRG 470 ==
LOC: EC 17:51 → 5MS5E 19:44 → 3SUR 05-31 15:39
PROVIDERS: ADMIT Orthopaedic Surgery; ATTEND Orthopaedic Surgery
PROC: 0SRS01A Replacement of Left Hip Joint, Femoral Surface with Metal Synthetic Substitute, Uncemented, Open Approach (ICD-10-PCS; principal; 2017-05-31 09:50)
DX: S72.012A Unspecified intracapsular fracture of left femur, initial encounter for closed fracture (principal); I69.154 Hemiplegia and hemiparesis following nontraumatic intracerebral hemorrhage affecting left non-dominant side; L89.629 Pressure ulcer of left heel, unspecified stage; I48.0 Paroxysmal atrial fibrillation; G40.909 Epilepsy, unspecified, not intractable, without status epilepticus; I10 Essential (primary) hypertension; I69.111 Memory deficit following nontraumatic intracerebral hemorrhage; R40.2362 Coma scale, best motor response, obeys commands, at arrival to emergency department; R40.2142 Coma scale, eyes open, spontaneous, at arrival to emergency department; R40.2242 Coma scale, best verbal response, confused conversation, at arrival to emergency department; N40.0 Benign prostatic hyperplasia without lower urinary tract symptoms; Z79.82 Long term (current) use of aspirin; Z79.899 Other long term (current) drug therapy; Z87.891 Personal history of nicotine dependence; Z92.21 Personal history of antineoplastic chemotherapy; Z92.3 Personal history of irradiation; Z85.01 Personal history of malignant neoplasm of esophagus; Z90.49 Acquired absence of other specified parts of digestive tract; Z98.2 Presence of cerebrospinal fluid drainage device; W00.0XXA Fall on same level due to ice and snow, initial encounter; Y92.007 Garden or yard of unspecified non-institutional (private) residence as the place of occurrence of the external cause
CPT/HCPCS: 36415; 71045; 73501; 73502; 80048; 80053; 85025; 85610; 85730; 86850; 86900; 86901; 87086; 88305; 88311; 93005; 96374; 96375; 99285

== ENCOUNTER → 2017-06-20 | Outpatient (CLI) | payer MEDICARE, BC ==
[2017-06-20 13:04] LABS: Blood Urea Nitrogen 9 mg/dL (9-20)
--- NOTE | 2017-06-20 14:52 | CT ---
EXAMINATION TYPE: CT ChestAbdPelvis w con DATE OF EXAM: 06/20/2017 COMPARISON: 09/24/2016 HISTORY: Follow up esopogeal cancer CT DLP: 654.8 mGycm CONTRAST: CT scan of the chest, abdomen and pelvis is performed with Oral Contrast and with IV Contrast, patien t injected with 100 mL of Omnipaque 300. CT Chest: LUNGS: The lungs are clear and free of infiltrate or atelectasis. No pulmonary nodule or mass is det ected basilar emphysematous change. Parenchymal scarring left lower lobe. MEDIASTINUM: Esophagectomy and gastric pull-through procedure noted. No evidence for recurrent esopha geal mass. No mediastinal mass identified. Thoracic aorta is of normal caliber. The heart is not enl arged. No evidence for mediastinal mass or adenopathy. HILAR STRUCTURES: No evidence for mass. No hilar adenopathy is appreciated. OTHER: No significant abnormality. CONTRAST CT ABDOMEN AND PELVIS FINDINGS: LIVER/GB: Mild hepatic steatosis. Cholecystectomy clips. No space occupying hepatic lesion. Biliar y tree is of normal caliber. PANCREAS: No inflammation. No distinct mass. SPLEEN: No splenic enlargement. No lesion seen. ADRENALS: No nodule. No thickening. KIDNEYS/BLADDER: No hydronephrosis. No nephrolithiasis. No disctinct renal mass. BOWEL: Normal appendix. Normal bowel caliber. No inflammation. GENITAL ORGANS: No gross abnormality. LYMPH NODES: No greater than 1cm abdominal or pelvic lymph nodes are appreciated. AORTA: No significant abnormality. OSSEOUS STRUCTURES: No significant abnormality is seen. OTHER: CHAIN MAKER shunt catheter with distal tip within the pelvis.. IMPRESSION: 1. Esophagectomy with gastric pull-through procedure and no evidence for metastatic disease at this t lyly.
== END | disposition home or self-care (01) ==
LOC: RADCTMAIN 12:14
PROVIDERS: ATTEND Internal Medicine Hematology & Oncology
DX: C15.5 Malignant neoplasm of lower third of esophagus (principal); Z90.49 Acquired absence of other specified parts of digestive tract
CPT/HCPCS: 82565; 84520; 71260; 74177; 36415; Q9967

== ENCOUNTER → 2017-06-29 | Outpatient (CLI) | payer MEDICARE, BC ==
--- NOTE | 2017-07-06 09:53 | P.ARTDOP ---
Arterial Doppler LOWER EXTREMITY ARTERIAL DOPPLER: DATE OF SERVICE: 06/29/2017 Reason for study: Pressure ulcer left heel. Doppler waveforms: Multiphasic bilaterally throughout. Pulse volume recording: []. Pressure gradients: None. Ankle-brachial indices: Greater than 1 bilaterally. Toe pressures: [] on the right, 74 on the left Impression: Normal study.
== END | disposition home or self-care (01) ==
LOC: RADUSWWP 13:38
PROVIDERS: ATTEND Podiatrist
DX: M79.604 Pain in right leg (principal); M79.605 Pain in left leg
CPT/HCPCS: 93922

== ENCOUNTER 2017-10-03 06:19 | Day surgery (SDC) | payer MEDICARE, BC ==
[2017-09-29 09:24] VITALS: BMI 20.9
--- NOTE | 2017-10-02 22:54 | P.GSHP ---
History of Present Illness H&P Date: 10/03/17 CHIEF COMPLAINT: Esophageal cancer HISTORY OF PRESENT ILLNESS: The patient is a 62-year-old male who presents reports esophageal cancer. Upper endoscopy was offered for further evaluation and management. PAST MEDICAL HISTORY: Please see list. PAST SURGICAL HISTORY: Please see list. MEDICATIONS: Please see list. ALLERGIES: Please see list. SOCIAL HISTORY: No illicit drug use FAMILY HISTORY: No reports of Crohn disease or ulcerative colitis. REVIEW OF ORGAN SYSTEMS: CONSTITUTIONAL: No reports of fevers or chills. GI: Denies any blood in stools or constipation. PHYSICAL EXAM: VITAL SIGNS: Stable GENERAL: Well-developed and pleasant in no acute distress. HEENT: No scleral icterus. Extraocular movements grossly intact. Moist buccal mucosa. NECK: Supple without lymphadenopathy. CHEST: Unlabored respirations. Equal bilateral excursions. CARDIOVASCULAR: Regular rate and rhythm. Distal 2+ pulses. ABDOMEN: Soft, nondistended. MUSCULOSKELETAL: No clubbing, cyanosis, or edema. ASSESSMENT: 1. Gastroesophageal reflux disease PLAN: 1. Recommend proceeding with an upper endoscopy Past Medical History Past Medical History: Atrial Fibrillation, Cancer, Seizure Disorder, Sleep Apnea /CPAP/BIPAP Additional Past Medical History / Comment(s): DYSPHAGIA, HX OF ESOPHAGEAL CA, ESOPHAGUS RECONSTRUCTED, CHEMO AND RADIATION 2017, past hx. 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 ago-residual short term memory impairment, & comprehension, balance problems @times,LEFT SIDED "NEGLECT" HX OF SEIZURE POST ANEURYSM, HX OF AFIB, NO LONGER ON MEDICATION FOR THAT lt. heel wound, DOESN'T USE CPAP, LEFT HEEL WOUND HEALING, WEARS SPECIAL SHOE DAYTIME, AND BOOT AT NIGHT. HAD DEBRIDEMENT OF LEFT HEEL IN WOUND CENTER, USING WHEELCHAIR OR CANE History of Any Multi-Drug Resistant Organisms: None Reported Past Surgical History: Cholecystectomy, Joint Replacement Additional Past Surgical History / Comment(s): PARTIAL LEFT HIP REPLACEMENT, RECONSTRUCTION OF ESOPHAGUS, repair of aneurysm w/clip, has brain shunt-not sure if still functions, repair torn retina, Past Anesthesia/Blood Transfusion Reactions: Previous Problems w/ Anesthesia Additional Past Anesthesia/Blood Transfusion Reaction / Comment(s): very slow to wake up-doesn't need much per spouse Smoking Status: Former smoker - Past Family History Mother Family Medical History: Unable to Obtain Medications and Allergies Home Medications Medication Instructions Recorded Confirmed Type Multivitamin [Men's Multi-Vitamin] 1 tab PO DAILY 09/22/16 09/29/17 History Tamsulosin HCl [Flomax] 0.4 mg PO HS 05/26/17 09/29/17 History Acetaminophen Tab [Tylenol] 650 mg PO Q6HR PRN tab 06/02/17 09/29/17 Rx Aspirin [Adult Low Dose Aspirin EC] 81 mg PO DAILY 09/29/17 09/29/17 History Cyanocobalamin (Vitamin B-12) 1,000 mcg PO DAILY 09/29/17 09/29/17 History [Vitamin B-12] Allergies Allergy/AdvReac Type Severity Reaction Status Date / Time No Known Allergies Allergy Verified 09/29/17 09:00
[~2017-10-03 06:19] MED LIST changes: +LIDOCAINE 1% 20 ML VIAL (10MG/ML) FOR IV START INTRADERMA PRN
[2017-10-03] MEDS ORDERED: LACTATED RINGERS 1,000 ML IV ONE (06:47)
[2017-10-03 06:57] VITALS: RESP 18; TEMP 97.9
[2017-10-03] MEDS ORDERED: LIDOCAINE 1% INJ 10MG/ML (20 ML MDV) ONE (07:16)
[2017-10-03] MEDS ORDERED: PROPOFOL 10 MG/ML 20 ML VIAL IV ONE (07:16)
--- NOTE | 2017-10-03 07:41 | P.PCN ---
Date of Procedure: 10/03/17 Description of Procedure: PREOPERATIVE DIAGNOSIS: Dysphagia. History of esophageal cancer status post resection and gastric pull-through POSTOPERATIVE DIAGNOSIS: Dysphagia. History of esophageal cancer status post resection and gastric pull-through Esophageal stricture OPERATION: Esophagogastroduodenoscopy with rigid dilator over the guidewire from 48 to 51 Fr. SURGEON: Steph Briones MD ANESTHESIA: MAC. INDICATIONS: The patient is a 62-year-old male who presents with a history of dysphagia. Benefits and risks of the procedure were described. Informed consent was obtained. DESCRIPTION: The patient was brought into the endoscopy suite and laid in the left lateral decubitus position. After a timeout was confirmed, the procedure was initiated. An Olympus gastroscope was beyond a tight upper esophageal sphincter. At the mid esophagus, gastric pull-through and esophageal anastomosis was fairly tight consistent with less than 10 mm in size. The scope was advanced into the pylorus of his gastric pull-through. The pylorus was consistent at 40 cm from the incisors. Next using an Cypriot rigid dilator, a guidewire was placed through the gastroscope. Next the scope was withdrawn. A 48-Anguillan rigid Cypriot dilator was passed carefully along the posterior oropharynx to 40 cm and left in place for 2 minutes stretch. A stepwise dilation to 51-Anguillan was performed of the upper esophageal sphincter at 40 cm from the incisors. The dilator was withdrawn including the guidewire. The scope was reentered along the posterior oropharynx with no findings of full-thickness tear of the upper esophageal sphincter. No full-thickness injury was encountered. The GI tract was desufflated. The patient tolerated the procedure well. FINDINGS: Esophageal anastomotic stricture consistent with less than 10 mm. Gastric pull-through status post esophageal resection identified Pylorus at 40 cm from the incisors. Stenotic upper esophageal sphincter, less than 10 mm in diameter Dilation to 51-Anguillan completed without full-thickness injury. RECOMMENDATIONS: Upper endoscopy as needed Plan - Discharge Summary New Discharge Prescriptions: No Action Multivitamin [Men's Multi-Vitamin] 1 tab PO DAILY Tamsulosin HCl [Flomax] 0.4 mg PO HS Acetaminophen Tab [Tylenol] 650 mg PO Q6HR PRN tab PRN Reason: Fever And/ Or Pain Aspirin [Adult Low Dose Aspirin EC] 81 mg PO DAILY Cyanocobalamin (Vitamin B-12) [Vitamin B-12] 1,000 mcg PO DAILY Discharge Medication List Multivitamin [Men's Multi-Vitamin] 1 tab PO DAILY 09/22/16 [History] Tamsulosin HCl [Flomax] 0.4 mg PO HS 05/26/17 [History] Acetaminophen Tab [Tylenol] 650 mg PO Q6HR PRN tab 06/02/17 [Rx] Aspirin [Adult Low Dose Aspirin EC] 81 mg PO DAILY 09/29/17 [History] Cyanocobalamin (Vitamin B-12) [Vitamin B-12] 1,000 mcg PO DAILY 09/29/17 [ History]
[2017-10-03 08:01] VITALS: BP 134/75; PULSE 69
== END 2017-10-03 08:31 | disposition home or self-care (01) ==
LOC: ORWHC2ENDO 06:19
PROVIDERS: ATTEND Surgery Plastic and Reconstructive Surgery
DX: K22.2 Esophageal obstruction (principal); K21.9 Gastro-esophageal reflux disease without esophagitis; I48.91 Unspecified atrial fibrillation; G40.909 Epilepsy, unspecified, not intractable, without status epilepticus; N40.0 Benign prostatic hyperplasia without lower urinary tract symptoms; G47.33 Obstructive sleep apnea (adult) (pediatric); Z85.01 Personal history of malignant neoplasm of esophagus; Z92.21 Personal history of antineoplastic chemotherapy; Z92.3 Personal history of irradiation; Z96.642 Presence of left artificial hip joint; Z87.891 Personal history of nicotine dependence; Z90.49 Acquired absence of other specified parts of digestive tract; Z79.899 Other long term (current) drug therapy; Z98.2 Presence of cerebrospinal fluid drainage device; Z79.82 Long term (current) use of aspirin; Z99.3 Dependence on wheelchair; Z99.89 Dependence on other enabling machines and devices
CPT/HCPCS: 43248; J2001; J2704; 43249

== ENCOUNTER → 2017-11-08 | Outpatient (CLI) | payer MEDICARE, BC ==
--- NOTE | 2017-11-08 12:15 | CT ---
EXAMINATION TYPE: CT ChestAbdPelvis w con DATE OF EXAM: 11/08/2017 COMPARISON: CT chest abdomen pelvis June 20 2815 and older PET/CT studies HISTORY: Esophageal cancer, observe for mets. Lesion right kidney per patient. Completed chemotherapy and radiation treatment in October 2016 with history of prior surgery. CT DLP: 1507 mGycm. Automated Exposure Control for Dose Reduction was Utilized. CONTRAST: CT scan of the thorax, abdomen and pelvis is performed with oral and with IV Contrast, patient inject ed with 100 mL of Isovue 300. FINDINGS: LUNGS: There is underlying mild to moderate emphysematous change redemonstrated. There are scattered linear scarring and/or atelectasis posteriorly in both lower lobes. There is no suspicious new parenc hymal nodule or mass identified bilaterally. No pleural effusion or pneumothorax is seen. Tracheobron chial tree is patent. MEDIASTINUM: There are no greater than 1 cm hilar or mediastinal lymph nodes. No cardiomegaly or pe ricardial effusion is seen. Surgical changes from esophagectomy and gastric pull-up procedure are re demonstrated. On current study there is persistent concentric and left eccentric wall thickening subc arinal level axial image 30, this could reflect product of surgery, focal gastritis, neoplasm felt un likely but not excluded. Adjacent surgical clips are present. Consider repeat PET/CT or direct visual ization to exclude neoplasm at this level though felt unlikely. Coronary artery calcification is rede monstrated which is noted marker for coronary artery disease. OTHER: There is redemonstration of right anterior ASSOCIATE PROFESSOR OF GEOLOGY shunt catheter terminating in the midline of the anterior upper to mid pelvis. LIVER/GB: Cholecystectomy clips are redemonstrated. PANCREAS: No significant abnormality is seen. SPLEEN: No significant abnormality is seen. ADRENALS: No significant abnormality is seen. KIDNEYS: There is redemonstration of partially exophytic bowel shaped 1.9 x 1.8 cm lesion posteriorly lower pole level right kidney that shows areas of enhancement and washout and continues to increase in size from September 24, 2016 CT, focal renal cell carcinoma is felt present. BOWEL: Oral contrast does not reach colonic level making evaluation slightly suboptimal. There is no suspicious small or large bowel dilatation. There is mild diffuse wall thickening beginning mid trans verse colon extending into proximal sigmoid colon level, a mild colitis at this level cannot be exclu ded. Correlate clinically. GENITAL ORGANS: Prostate gland is heterogeneous in appearance and enlarged in size consistent with BP H. LYMPH NODES: No greater than 1cm abdominal or pelvic lymph nodes are appreciated. OSSEOUS STRUCTURES: Metallic hardware from left hip arthroplasty causes streak artifact limiting eval uation of pelvic structures. Slightly exaggerated curvature is seen cervical thoracic junction on sag ittal images. OTHER: No significant additional abnormality is seen. IMPRESSION: 1. Attention to proximal to mid aspect of gastric pull-up as detailed above. 2. Enlarging ball shaped enhancing mass posteriorly lower pole level right kidney likely reflecting f ocal renal cell carcinoma. Lesion based on current literature could be considered for RFA and/or cryo ablation. 3. Possible new mild colitis, correlate clinically.
== END | disposition home or self-care (01) ==
LOC: RADCTMAIN 07:43
PROVIDERS: ATTEND Internal Medicine Hematology & Oncology
DX: C15.5 Malignant neoplasm of lower third of esophagus (principal); N28.89 Other specified disorders of kidney and ureter
CPT/HCPCS: 71260; 74177; 36415; Q9967

== ENCOUNTER → 2018-04-24 | Outpatient (CLI) | payer MEDICARE, BC ==
--- NOTE | 2018-04-24 11:56 | CT ---
EXAMINATION TYPE: CT ChestAbdPelvis w con DATE OF EXAM: 04/24/2018 COMPARISON: Prior CT chest abdomen pelvis 11/08/2017, 06/20/[address] chest abdomen 09/24/2016 HISTORY: Malignant neoplasm of lower esophagus CT DLP: 578.70 mGycm Automated exposure control for dose reduction was used. CONTRAST: CT scan of the chest, abdomen and pelvis is performed with Oral Contrast and with IV Contrast, patien t injected with 100 mL of Isovue 300. FINDINGS: LUNGS: The lungs are stable, there is no concerning parenchymal mass or nodule identified. Emphysemat ous changes are again noted. Parenchymal bands at the lung bases compatible with scarring. There is no pleural effusion or pneumothorax seen. The tracheobronchial tree is patent. MEDIASTINUM: There are no greater than 1 cm hilar or mediastinal lymph nodes. No pericardial effusi on is seen. Patient is status post esophagectomy and gastric pull-through as noted on prior exam, at the level of the javan some possible redundancy is again noted, difficult to exclude underlying muc osal mass however findings are stable compared to previous exams. AORTA: No significant abnormality is seen. OTHER: Ventriculoperitoneal shunt tubing is again noted along the right neck, anterior right chest a nd coursing into the right hemiabdomen. LIVER/GB: Patient is post cholecystectomy, liver shows no mass PANCREAS: No significant abnormality is seen. SPLEEN: No significant abnormality is seen. ADRENALS: No significant abnormality is seen. KIDNEYS: There is a mass at the lower pole the right kidney now measuring approximately 2.9 cm in gre atest dimension compatible with renal cell carcinoma increased approximately 1 cm compared to prior C T 09/24/2016. REPRODUCTIVE ORGANS: No gross abnormality seen. BOWEL: Diverticular changes extensive along the sigmoid colon. FREE AIR: No Free Air visible. ASCITES: None seen. RETROPERITONEAL ADENOPATHY: No retroperitoneal adenopathy is seen. LYMPH NODES: No greater than 1 cm abdominal or pelvic lymph nodes are appreciated. URINARY BLADDER: No significant abnormality is seen. PELVIC ADENOPATHY: None visualized. OSSEOUS STRUCTURES: Artifact due to patient's left hip prosthesis is present which could compromise sensitivity within the pelvis. IMPRESSION: Post esophagectomy changes as described. Findings compatible with renal cell carcinoma lo wer pole right kidney. Postop changes. Additional findings above.
== END | disposition home or self-care (01) ==
LOC: RADCTMAIN 09:14
PROVIDERS: ATTEND Internal Medicine Hematology & Oncology
DX: Z08 Encounter for follow-up examination after completed treatment for malignant neoplasm (principal); J43.9 Emphysema, unspecified; K57.30 Diverticulosis of large intestine without perforation or abscess without bleeding; Z85.01 Personal history of malignant neoplasm of esophagus; Z90.49 Acquired absence of other specified parts of digestive tract
CPT/HCPCS: 71260; 74177; Q9967

== ENCOUNTER → 2019-03-19 | Outpatient (CLI) | payer MEDICARE, BC ==
[2019-03-19 11:35] LABS: African American GFR (CKD) >90 (>60 ml/min/1.73 sqM); Blood Urea Nitrogen 13 mg/dL (9-20)
--- NOTE | 2019-03-19 13:51 | CT ---
EXAMINATION TYPE: CT ChestAbdPelvis w con DATE OF EXAM: 03/19/2019 COMPARISON: 04/24/2018 and 11/08/2017 HISTORY: 64-year-old male Malignant neoplasm of lower third esophagus TECHNIQUE: Contiguous axial scanning of the chest, abdomen, and pelvis performed with IV Contrast, pa tient injected with 100 mL of Isovue 300. Delayed images through the kidneys were obtained. Coronal/s agittal reconstructions performed. CT DLP: 572.2 mGycm Automated exposure control for dose reduction was used. FINDINGS: CHEST: Right-sided LEATHER SHAVER shunt catheter is illustrated. Heart normal size with trace anterior pericardial fluid. Coronary vascular calcifications are present and are remarkable for coronary artery disease. Aorta and normal caliber with bovine configuration to the aortic arch. No thoracic lymphadenopathy by CT size criteria. Postsurgical changes of esophagectomy with gastric pull-through procedure. A tiny left paratracheal lymph node in the upper thorax measures 4 mm short axis, unchanged. Scattered mild to moderate centrilobular emphysema. Right apical pleural-parenchymal scarring. Patchy opacity basilar left lower lobe, likely atelectasis, stable to slightly increased. 4 and 5 mm lingular pulmonary nodules, axial image 40 and 45. Additional smaller 3 mm pulmonary nodul e, axial image 36 in the left upper lobe. ABDOMEN: Interval development of a moderate-sized hiatal hernia containing nonobstructed mid transverse colon. No focal liver lesion or biliary ductal dilatation. On delayed kidney images, no evidence for portal venous thrombosis. Cholecystectomy clips. Adrenal glands, left kidney, spleen, and pancreas show no gross abnormal mobility. Redemonstrated solid, enhancing mass lower pole right kidney currently measuring 2.8 cm versus 2.4 cm on 04/24/2018. No dilated small bowel, free fluid, or free air. No mesenteric or retroperitoneal lymphadenopathy alvaro ntified. Sigmoid diverticulosis. Moderate stool in the sigmoid colon. No pericolonic inflammatory change. Pelvis: Bladder distended. Prostate gland is enlarged measuring at least 4.7 cm wide. Portions of the pelvis are secured due to extensive streak and beam hardening artifact from patient's left hip arthroplasty. No pelvic lymphadenopathy or abnormal fluid collection identified. Bones: Left hip hemiarthroplasty. Degenerative changes SI joints. Stable sclerotic foci within the right daniel ac bone suggesting a benign etiology. Facet arthropathy lower lumbar spine and degenerative disc dise ase L5-S1. Accentuated upper thoracic kyphosis. No osseous destructive process. IMPRESSION: 1. STATUS POST ESOPHAGECTOMY WITH GASTRIC PULL-THROUGH. NEW MODERATE-SIZED HIATAL HERNIA CONTAINING N ONOBSTRUCTED TRANSVERSE COLON. 2. APPROXIMATELY 3 NEW LINGULAR PULMONARY NODULES RANGING IN SIZE FROM 3 MM TO 5 MM. SHORT INTERVAL F OLLOW-UP RECOMMENDED TO EXCLUDE EARLY METASTATIC PULMONARY NODULES. 3. COPD WITH MODERATE EMPHYSEMA. 4. REDEMONSTRATED SOLID ENHANCING MASS LOWER POLE RIGHT KIDNEY CURRENTLY MEASURING 2.8 CM VERSUS 2.4 CM, PREVIOUSLY. RELATIVELY INDOLENT BEHAVIOR BUT RCC NEEDS TO BE EXCLUDED. 5. SIGMOID DIVERTICULOSIS. PROSTATOMEGALY AT 4.7 CM WIDE.
== END | disposition home or self-care (01) ==
LOC: RADCTMAIN 09:54
PROVIDERS: ATTEND Internal Medicine Hematology & Oncology
DX: J43.9 Emphysema, unspecified (principal); R91.1 Solitary pulmonary nodule; K57.30 Diverticulosis of large intestine without perforation or abscess without bleeding; K44.9 Diaphragmatic hernia without obstruction or gangrene; Z90.49 Acquired absence of other specified parts of digestive tract; N40.0 Benign prostatic hyperplasia without lower urinary tract symptoms; C15.5 Malignant neoplasm of lower third of esophagus
CPT/HCPCS: 82565; 84520; 71260; 74177; 36415; Q9967 ×2

== ENCOUNTER → 2019-06-20 | Outpatient (CLI) | payer MEDICARE, BC ==
[2019-06-20 11:22] LABS: African American GFR (CKD) >90 (>60 ml/min/1.73 sqM); Blood Urea Nitrogen 15 mg/dL (9-20); Non-African American GFR(CKD) >90 (>60 ml/min/1.73 sqM)
--- NOTE | 2019-06-20 13:13 | CT ---
EXAMINATION TYPE: CT ChestAbdPelvis w con DATE OF EXAM: 06/20/2019 COMPARISON: HISTORY: Esophageal CA CT DLP: 665.7 mGycm CONTRAST: CT scan of the chest, abdomen and pelvis is performed with Oral Contrast and with IV Contrast, patien t injected with 100 mL of Isovue 300. CT Chest: LUNGS: Scattered emphysematous bullae and hyperinflation compatible with COPD. Previously noted lingu lar nodule is not identified. In addition 3 mm left upper lobe nodule is not redemonstrated at this t lyly. No new nodules are identified. The lungs are clear and free of infiltrate or atelectasis. No pu lmonary nodule or mass is detected. No pleural effusion or CT evidence of interstitial lung disease. MEDIASTINUM: There is evidence of esophagectomy with gastric pull-through procedure. Left diaphragmat ic hernia containing several loops of bowel. The appearance is unchanged from prior examination. No e vidence for recurrent or residual mass. HILAR STRUCTURES: No evidence for mass. No hilar adenopathy is appreciated. OTHER: Right-sided SECURITY DOOR INSTALLER shunt catheter noted with its distal tip within the upper abdomen. CONTRAST CT ABDOMEN AND PELVIS FINDINGS: LIVER/GB: No calcified gallstones. No space occupying hepatic lesion. Biliary tree is of normal ca liber. PANCREAS: No inflammation. No distinct mass. SPLEEN: No splenic enlargement. No lesion seen. ADRENALS: No nodule. No thickening. KIDNEYS/BLADDER: No hydronephrosis. No nephrolithiasis. stable solid mass lower pole right kidney measuring 2.6 x 2.3 cm versus 2.8 x 2.4 cm previously. Renal cell carcinoma not excluded. BOWEL: Normal appendix. Normal bowel caliber. No inflammation. Sigmoid diverticulosis without diver ticulitis. GENITAL ORGANS: No gross abnormality. LYMPH NODES: No greater than 1cm abdominal or pelvic lymph nodes are appreciated. AORTA: No significant abnormality. OSSEOUS STRUCTURES: Mild scattered degenerative changes. Left hip prosthesis in place. OTHER: No significant additional abnormality is seen. IMPRESSION: 1. Stable features of esophagectomy with gastric pull-through. Diaphragmatic hernia is unchanged. 2. Tiny pulmonary nodules described previously is not redemonstrated at this time. No new pulmonary n odules seen. 3. Moderate emphysema and COPD. 4. stable solid mass lower pole right kidney measuring 2.6 x 2.3 cm versus 2.8 x 2.4 cm previously. R enal cell carcinoma not excluded.
== END | disposition home or self-care (01) ==
LOC: RADCTMAIN 10:20
PROVIDERS: ATTEND Internal Medicine Hematology & Oncology
DX: K44.9 Diaphragmatic hernia without obstruction or gangrene (principal); J43.9 Emphysema, unspecified; C15.5 Malignant neoplasm of lower third of esophagus; Z90.49 Acquired absence of other specified parts of digestive tract
CPT/HCPCS: 82565; 84520; 71260; 74177; 36415; Q9967 ×2

== ENCOUNTER 2019-10-17 22:23 | Inpatient (IN) | payer MEDICARE, BC ==
--- NOTE | 2019-10-17 22:57 | ED ---
SOB HPI - General Chief Complaint: Shortness of Breath Stated Complaint: SOB Time Seen by Provider: 10/17/19 22:27 Source: patient, EMS, RN notes reviewed, old records reviewed Mode of arrival: EMS Limitations: no limitations - History of Present Illness Initial Comments: Patient is a 64-year-old male with a past medical history of esophageal cancer status post partial esophagectomy and recent dilation of the esophagus presented to [facility] for shortness of breath with a productive cough and sputum for the past week. He reports that he was started on December he she believes after the dilation with the vomiting when he was [facility] She reports that he's had multiple episodes of vomiting and was concerned that he may have aspirated due to throwing up earlier in the week. Since that time he's had worsening shortness of breath. No recorded fevers at home. He does not wear oxygen at home. Patient does report that he is a poor historian with a history of brain aneurysm. Majority of the history was from previous medical record and . When Patient arrived to [facility] he was noted to be hypoxic at 86% on room air. His oxygenation is stabilized at 4 L of oxygen and is now 94%. - Related Data Home Medications Medication Instructions Recorded Confirmed Multivitamin [Men's Multi-Vitamin] 1 tab PO DAILY 09/22/16 10/03/17 Tamsulosin HCl [Flomax] 0.4 mg PO HS 05/26/17 10/03/17 Aspirin [Adult Low Dose Aspirin EC] 81 mg PO DAILY 09/29/17 10/03/17 Cyanocobalamin (Vitamin B-12) 1,000 mcg PO DAILY 09/29/17 10/03/17 [Vitamin B-12] Previous Rx's Medication Instructions Recorded Acetaminophen Tab [Tylenol] 650 mg PO Q6HR PRN tab 06/02/17 Allergies Allergy/AdvReac Type Severity Reaction Status Date / Time No Known Allergies Allergy Verified 10/17/19 22:32 Review of Systems ROS Statement: Those systems with pertinent positive or pertinent negative responses have been documented in the HPI. ROS Other: All systems not noted in ROS Statement are negative. Past Medical History Past Medical History: Atrial Fibrillation, Cancer, Seizure Disorder, Sleep Apnea/CPAP/BIPAP Additional Past Medical History / Comment(s): DYSPHAGIA, HX OF ESOPHAGEAL CA,ESOPHAGUS RECONSTRUCTED, CHEMO AND RADIATION 2017, past hx. 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 ago-residual short term memory impairment, & comprehension, balance problems @times,LEFT SIDED "NEGLECT" HX OF SEIZURE POST ANEURYSM, HX OF AFIB, NO LONGER ON MEDICATION FOR THAT lt. heel wound, DOESN'T USE CPAP, LEFT HEEL WOUND HEALING, WEARS SPECIAL SHOE DAYTIME, AND BOOT AT NIGHT. HAD DEBRIDEMENT OF LEFT HEEL IN WOUND CENTER, USING WHEELCHAIR OR CANE History of Any Multi-Drug Resistant Organisms: None Reported Past Surgical History: Cholecystectomy, Joint Replacement Additional Past Surgical History / Comment(s): PARTIAL LEFT HIP REPLACEMENT, RECONSTRUCTION OF ESOPHAGUS, repair of aneurysm w/clip, has brain shunt-not sure if still functions, repair torn retina, Past Anesthesia/Blood Transfusion Reactions: Previous Problems w/ Anesthesia Additional Past Anesthesia/Blood Transfusion Reaction / Comment(s): very slow to wake up-doesn't need much per spouse Past Psychological History: Anxiety Smoking Status: Former smoker - Past Family History Mother Family Medical History: Unable to Obtain General Exam - General Exam Comments Initial Comments: 64-year-old male. Alert and oriented 3. He does have history of cerebral aneurysm causing some amnesia. He appears in no acute distress. Patient is 94% on 4 L of oxygen. Limitations: no limitations General appearance: alert, in no apparent distress Head exam: Present: atraumatic, normocephalic, normal inspection Eye exam: Present: normal appearance, PERRL, EOMI. Absent: scleral icterus, conjunctival injection, periorbital swelling ENT exam: Present: normal exam, mucous membranes moist Neck exam: Present: normal inspection. Absent: tenderness, meningismus, lymphadenopathy Respiratory exam: Present: wheezes, decreased breath sounds. Absent: normal lung sounds bilaterally, respiratory distress, rales, rhonchi, stridor Cardiovascular Exam: Present: regular rate, normal rhythm, normal heart sounds. Absent: systolic murmur, diastolic murmur, rubs, gallop, clicks GI/Abdominal exam: Present: soft, normal bowel sounds. Absent: distended, tenderness, guarding, rebound, rigid Back exam: Present: normal inspection Neurological exam: Present: alert, oriented X3, CN II-XII intact Psychiatric exam: Present: normal affect, normal mood Skin exam: Present: warm, dry, intact, normal color. Absent: rash Course Vital Signs 10/17/19 10/17/19 22:29 22:54 Temperature 97.9 F Pulse Rate 85 Respiratory 18 20 Rate Blood Pressure 152/90 O2 Sat by Pulse 95 Oximetry Medical Decision Making - Medical Decision Making 64-year-old male presents emergency department today for [facility] for concern for aspiration pneumonia after vomiting status post esophageal dilation. He's had worsening shortness of breath for the past 2 days according to his . He does have a history of dementia and history of aneurysm. At this time Patient has no fever. Patient was started on IV Zosyn at [facility]. It is unclear if blood cultures were obtained so blood cultures were done in our emergency department. I also started the Patient on IV clindamycin for concern for aspiration pneumonia. Dr. Sarkar is patient's GI specialist, whom did esophageal dilation last week. Patient's lab work from [facility] showed a white blood cell count of 22,000, with a neutrophil shift of 19,000. Hemoglobin is stable at 14, RBCs of 5.1. MCV of 91. Platelets are 266. Sodium 135. Potassium 3.9. Chloride 96. Glucose 136. CO2 29. BUN 11. Creatinine 0.6. Calcium 8.7. AST 34 ALT is 24 alk phos 115. Patient's lactic acid was 2.8. Patient had respiratory panel which is negative for Crohn a virus parainfluenza, mycoplasma. - Radiology Data Radiology results: report reviewed Chest x-ray from outpatient shows evidence of a right lower lobe pneumonia. Disposition Clinical Impression: Memory impairment, Sepsis, Aspiration pneumonia, Dysphagia, Esophageal cancer Disposition: ADMITTED IP TO THIS HOSP Condition: Stable Is patient prescribed a controlled substance at d/c from ED?: No Referrals: Claude Deluna MD [Primary Care Provider] - 1-2 days Time of Disposition: 23:34
[2019-10-17] MEDS ORDERED: PNEUMONIA PROTOCOL UTILIZED 1 EACH MISC PO PRN (23:14)
[2019-10-17] MEDS ORDERED: CLINDAMYCIN 600 MG in DEXTROSE 5% IN WATER 50 ML IVPB STA ×2 (23:29)
[2019-10-17] MEDS ORDERED: ACETAMINOPHEN TAB 325 MG TAB PO PRN (23:34)
[2019-10-17] MEDS ORDERED: IBUPROFEN 400 MG TAB PO PRN (23:34)
[2019-10-17] MEDS ORDERED: NALOXONE 0.4 MG/ML 1 ML VIAL IV PRN (23:34)
[2019-10-17] MEDS ORDERED: ONDANSETRON 4 MG/2 ML VIAL IVP PRN (23:34)
[2019-10-17] MEDS ORDERED: SODIUM CHLORIDE 0.9% 1,000 ML IV ONE (23:38)
[2019-10-17] MEDS: SODIUM CHLORIDE 0.9% 1,000 ML IV SCH (23:43)
[2019-10-17] MEDS: IPRATROPIUM-ALBUTEROL 3 ML NEB INHALATION PRN (23:58)
[2019-10-18] MEDS ORDERED: AZITHROMYCIN 500 MG in SODIUM CHLORIDE 0.9% 250 ML IVPB STA (00:34)
[2019-10-18] MEDS: PIPERACILLIN-TAZOBACTAM 3.375 GM in SODIUM CHLORIDE 0.9% 100 ML IVPB SCH ×4 (01:59→23:11)
[2019-10-18] MEDS: PANTOPRAZOLE 40 MG/10 ML VIAL IV SCH (07:28)
[2019-10-18] MEDS: SODIUM CHLORIDE 0.9% 1,000 ML IV SCH ×2 (07:35→17:34)
[2019-10-18] MEDS ORDERED: CLINDAMYCIN 600 MG in DEXTROSE 5% IN WATER 50 ML IVPB SCH ×2 (08:00)
--- NOTE | 2019-10-18 09:06 | XR ---
EXAMINATION TYPE: XR chest 1V DATE OF EXAM: 10/18/2019 COMPARISON: 05/30/2017 HISTORY: Cough TECHNIQUE: Single frontal view of the chest is obtained. FINDINGS: There is bilateral consolidation and pleural effusion. There is a LIFEGUARD shunt catheter. No pn eumothorax. The heart is stable in size. Arthropathy of the shoulders. IMPRESSION: 1. Interval development of bilateral infiltrate and pleural effusion correlate for pneumonia. Underly ing CHF not excluded.
[2019-10-18] MEDS ORDERED: RX INFO: IV CONTRAST WAS GIVEN 1 EACH MISC MISCELLANE PRN (09:40)
[2019-10-18] MEDS: HEPARIN SODIUM,PORCINE 5,000 UNIT/ML 1 ML VIAL SQ SCH ×3 (10:52→23:11)
--- NOTE | 2019-10-18 11:50 | P.CNPUL ---
History of Present Illness Consult date: 10/18/19 Reason for consult: pneumonia History of present illness: This is a 64-year-old male patient was referred to us for aspiration pneumonia. He was initially seen in an outside hospital and the patient is known to have previous history of esophageal cancer and partial esophagectomy has been done with a gastric pull-through. Note that the patient also has had previous history of PIPELAYER aneurysm and stroke and bleed and as such she has been having difficulties with memory and he is not aware of the condition that she isn't. The patient apparently was having some increased shortness of breath and cough and productive think you're or sputum for almost a week. His was concerned that the patient has aspirated and the patient was also throwing up earlier that week out of his sleep. Since then, the patient has been having worsening shor tness of breath. No fever at home. He is on oxygen. Cough has been productive. No nausea for now. No chest pain. For that reason she was brought into the hospital. The patient is under the care of Dr. Wilder regarding his esophageal cancer. The most recent CAT scan of the chest that was done in June 2019 showed emphysema, 3 mm left upper lobe nodule, no new nodules are identified, lungs were free of any infiltrates and there was evidence of esophagectomy and gastric pull through procedure and left diaphragmatic hernia containing several loops of bowel. Otherwise unchanged and there was no evidence of any recurrence malignancy. The patient is currently on IV Zosyn. I reviewed her follow-up chest x-ray and the patient has bilateral lower lobe pulmonary infiltrates that needs to be further investigated. He is currently on 3 L of oxygen by nasal cannula which was weaned down to 2 L with a pulse ox of 98%. Is afebrile. He is hemodynamically stable. No nausea. No vomiting. No diarrhea. No abdominal pain. No other significant events otherwise for now. 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 He doesn't use any CPAP, history of left heel wound for which she was seen at the wound center in the past, history of GI bleed, HAD DEBRIDEMENT OF LEFT HEEL IN WOUND CENTER, USING WHEELCHAIR OR CANE; RIGHT KIDNEY MASS-DR MONITORING History of Any Multi-Drug Resistant Organisms: None Reported Past Surgical History: Cholecystectomy, Joint Replacement Additional Past Surgical History / Comment(s): Cerebral aneurysm clipping, tracheostomy, retinal tear repair, cataract, cholecystectomy, left hip replacement, insertion of a VACUUM BOTTLE ASSEMBLER shunt, esophagectomy with gastric pull for esophageal cancer. Past Anesthesia/Blood Transfusion Reactions: Previous Problems w/ Anesthesia Additional Past Anesthesia/Blood Transfusion Reaction / Comment(s): very slow to wake up-doesn't need much per spouse Past Psychological History: Anxiety Additional Psychological History / Comment(s): SPOUSE STATES ESPECIALLY WHEN HE DOES NOT SEE HER Smoking Status: Former smoker Past Alcohol Use History: Rare Additional Past Alcohol Use History / Comment(s): smoked occasional cigars 30 yrs. ago, AND CHEWED TOBACCO, Past Drug Use History: None Reported - Past Family History Mother Family Medical History: Unable to Obtain Medications and Allergies Home Medications Medication Instructions Recorded Confirmed Type Tamsulosin HCl [Flomax] 0.4 mg PO DAILY 05/26/17 10/18/19 History Aspirin [Adult Low Dose Aspirin EC] 81 mg PO DAILY 09/29/17 10/18/19 History Cyanocobalamin (Vitamin B-12) 1,000 mcg PO DAILY 09/29/17 10/18/19 History [Vitamin B-12] Magnesium 250 mg PO DAILY 10/18/19 10/18/19 History Pantoprazole Sodium [Protonix] 40 mg PO DAILY 10/18/19 10/18/19 History Allergies Allergy/AdvReac Type Severity Reaction Status Date / Time No Known Allergies Allergy Verified 10/18/19 08:42 Physical Exam Vitals: Vital Signs Temp Pulse Pulse Resp BP BP Pulse Ox 10/18/19 08:30 18 10/18/19 07:00 98.3 F 90 18 126/83 98 10/18/19 01:34 98.3 F 90 16 131/73 90 L 10/18/19 00:12 92 10/17/19 23:58 88 10/17/19 23:52 64 16 155/86 95 06/03/20 22:54 20 10/17/19 22:29 97.9 F 85 18 152/90 95 Intake and Output 10/17/19 10/18/19 10/18/19 22:59 06:59 14:59 Intake Total 180 Balance 180 Intake: Oral 180 Other: # Voids 1 Weight 72.575 kg 72.575 kg The patient appeared well nourished and normally developed. Vital signs as documented. Head exam is unremarkable. No scleral icterus or corneal arcus noted. Neck is without jugular venous distension, thyromegaly, or carotid bruits. Carotid upstrokes are brisk bilaterally. Lungs are clear to auscultation and percussion. The breath sounds are diminished in lung bases bilaterally. Few scattered rhonchi can be appreciated. Cardiac exam reveals the PMI to be normally sized and situated. Rhythm is regular. First and second heart sounds normal. No murmurs, rubs or gallops. Abdominal exam reveals normal bowel sounds, no masses, no organomegaly and no aortic enlargement. Extremities are nonedematous and both femoral and pedal pulses are normal.Examination of the ski n revealed no evidence of significant rashes, suspicious appearing nevi or other concerning lesions. Neurologically the patient is awake and alert and there is no focal neurological deficit at least on a pulmonary examination. There may be some hematin neglect related to previous CVA. Results - Diagnostic Findings Chest x-ray: image reviewed Assessment and Plan Plan: 1 acute aspiration suspected with secondary shortness of breath and development of bilateral lower lobe pulmonary infiltrates. This is to be further investigated. Currently on IV Zosyn. 2 history of esophageal cancer with esophagectomy gastric pull. The patient has chronic dysphagia and acid reflux which could predispose him essentially to have aspirations. The patient has undergone surgery, as esophagectomy with gastric pull followed by chemoradiation therapy back in . 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 He also has some issues with balance 4 previous history of GI bleed, none for now 5 history of obstructive sleep apnea not utilizing any form of CPAP for now 6 paroxysmal atrial fibrillation current rhythm is sinus 7 History of left heel wound which is been essentially improving and the patient wears special medical issues in that regard and he uses a wheelchair/cane 8 dysphagia 9 BPH Plan Continue IV Zosyn CAT scan of the chest with contrast Check a pro-calcitonin level Swallow evaluation We'll continue to follow
--- NOTE | 2019-10-18 14:09 | CT ---
EXAMINATION TYPE: CT chest w con DATE OF EXAM: 10/18/2019 COMPARISON: HISTORY: history of esophagus CA, pneumonia CT DLP: 252.9 mGycm, Automated exposure control for dose reduction was used. CONTRAST: Performed injected with 100 mL of Isovue 300. TECHNIQUE: Axial images were obtained at 5 mm thick sections. Reconstructed images are reviewed on [employer] computer in the coronal plane. FINDINGS: There is a subtle hypodensity within the right lobe thyroid measuring 1.1 cm. This could be further evaluated with ultrasound. There is a gastric pull-through present with a large portion of the stomach within the lower thoracic region. Small bilateral pleural effusions are present. Compressive atelectasis appears to be present bilaterally. There is some hypodensity within the atelectatic type area within the left lung measuri ng 2 cm. Series 201 image 33. There is a 3.3 cm masslike area in the posterior right lung. No retrocrural or enlarged mediastinal adenopathy is evident. Couple small lymph nodes are within the pretracheal space. Suspicious hilar adenopathy is not identified. The ascending aorta diameter at the level of the main pulmonary artery is 3.6 cm. The main pulmonary artery diameter at the bifurcation is 2.[address] sections are obtained through the upper abdomen. Abdomen is essentially unremarkable. IMPRESSIONS: 1. Small bilateral pleural effusions. 2. Interval development of a masslike area of increased density posterior right lung and possibly wit hin the atelectatic change on the left lung. Consider PET CT for additional evaluation. Differential could include atelectasis and pneumonia. 3. There appears to be some superimposed compressive atelectasis within the bilateral dependent lung bases. 4. Postsurgical changes from gastric pull-through.
[2019-10-18] MEDS: TAMSULOSIN 0.4 MG CAP.ER.24H PO SCH (17:33)
--- NOTE | 2019-10-18 19:42 | P.HPIM ---
History of Present Illness H&P Date: 10/18/19 Chief Complaint: Cough shortness of breath History of presenting complaint: This is a pleasant 64-year-old patient of Dr. Deluna. Chronic stable medical conditions include atrial fibrillation, sleep apnea,(s) sleep apnea for vision is not too CPAP. Also the right kidney mass that is being monitored. Patient has a history of esophageal cancer with partial esophagectomy. Patient did receive both chemotherapy and finished treatment that was through 2017 with initial diagnoses and treatment completion in 2019. Patient been told is cancer free. Did follow with Dr. Wilder. Patient's had some vomiting at home but subsequently was coughing and he may have aspirated. Still has a cough for some yellow sputum. He was taken out at [facility] where he was pulse ox is 186%. He was transferred down here for aspiration pneumonia. Patient also had a brain aneurysm repair over 27 years ago with appears to be with the coil. And has rather poor short-term memory. Most of the history is obtained per the on the phone and supplemental history from the ER. 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 2 tobacco. Alcohol rarely. . Family history: Patient cannot remember Physical examination: VITAL SIGNS: 97.9, 85, 18, 152/90, 95% on 2 L-upon presentation GENERAL: BMI 23 over sitting up in a chair, comfortable. EYES: Pupils equal. Conjunctiva normal. HEENT: External appearance of nose and ears normal, oral cavity grossly normal. NECK: JVD not raised; masses not palpable. HEART: First and second heart sounds are normal; no edema. LUNGS:[ Respiratory rate increased,; slightly decreased breath sounds. ABDOMEN: Soft, nontender, liver spleen not palpable, no masses palpable. PSYCH: [Patient able answer simple questions l. NEUROLOGICAL: Cranial nerves grossly intact; no facial asymmetry, power and sensation grossly intact. LYMPHATICS: No lymph nodes palpable in the axilla and neck INVESTIGATIONS, reviewed in the clinical context: Chest x-ray film personally reviewed by me-bibasal infiltrates Computed tomography scan of the chest-interval development of a masslike area of increased density posterior right lung. Other postsurgical changes. Pro calcitonin 0.25 Assessment: -Patient is having bouts of vomiting at home and seems to aspirated. Clinical picture is supportive of aspiration pneumonia. Causing causing hypoxia pulse ox was 86% of the hospital. -Acute hypoxic respiratory failure secondary to aspiration pneumonia -Abdominals mass on the computed tomography scan of the chest in the setting of prior cancer to be further worked up. 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 -GERD -BPH Plan: Patient be started IV Zosyn. Home medications resumed. Gentle hydration. DVT prophylaxis. Consultation made to pulmonary and oncology. Care was discussed with the patient and on the phone. Questions answered. Past Medical History Past Medical History: Atrial Fibrillation, Cancer, Seizure Disorder, Sleep Apnea/CPAP/BIPAP Additional Past Medical History / Comment(s): DYSPHAGIA, HX OF ESOPHAGEAL CA,ESOPHAGUS RECONSTRUCTED, CHEMO AND RADIATION 2017, past hx. 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 ago-residual short term memory impairment, & comprehension, [place] problems @times,LEFT SIDED "NEGLECT" HX OF SEIZURE POST ANEURYSM, HX OF AFIB, NO LONGER ON MEDICATION FOR THAT lt. heel wound, DOESN'T USE CPAP, LEFT HEEL WOUND HEALING, WEARS SPECIAL SHOE DAYTIME, AND BOOT AT NIGHT. HAD DEBRIDEMENT OF LEFT HEEL IN WOUND CENTER, USING WHEELCHAIR OR CANE; RIGHT KIDNEY MASS-DR MONITORING History of Any Multi-Drug Resistant Organisms: None Reported Past Surgical History: Cholecystectomy, Joint Replacement Additional Past Surgical History / Comment(s): PARTIAL LEFT HIP REPLACEMENT, RECONSTRUCTION OF ESOPHAGUS, repair of aneurysm w/clip, has brain shunt-not sure if still functions, repair torn retina Past Anesthesia/Blood Transfusion Reactions: Previous Problems w/ Anesthesia Additional Past Anesthesia/Blood Transfusion Reaction / Comment(s): very slow to wake up-doesn't need much per spouse Past Psychological History: Anxiety Additional Psychological History / Comment(s): SPOUSE STATES ESPECIALLY WHEN HE DOES NOT SEE HER Smoking Status: Former smoker Past Alcohol Use History: Rare Additional Past Alcohol Use History / Comment(s): smoked occasional cigars 30 yrs. ago, AND CHEWED TOBACCO, Past Drug Use History: None Reported - Past Family History Mother Family Medical History: Unable to Obtain Medications and Allergies Home Medications Medication Instructions Recorded Confirmed Type Tamsulosin HCl [Flomax] 0.4 mg PO DAILY 05/26/17 10/18/19 History Aspirin [Adult Low Dose Aspirin EC] 81 mg PO DAILY 09/29/17 10/18/19 History Cyanocobalamin (Vitamin B-12) 1,000 mcg PO DAILY 09/29/17 10/18/19 History [Vitamin B-12] Magnesium 250 mg PO DAILY 10/18/19 10/18/19 History Pantoprazole Sodium [Protonix] 40 mg PO DAILY 10/18/19 10/18/19 History Allergies Allergy/AdvReac Type Severity Reaction Status Date / Time No Known Allergies Allergy Verified 10/18/19 08:42 Physical Exam Vitals: Vital Signs Temp Pulse Pulse Resp BP BP Pulse Ox 10/18/19 07:00 98.3 F 90 18 126/83 98 10/18/19 01:34 98.3 F 90 16 131/73 90 L 10/18/19 00:12 92 10/17/19 23:58 88 10/17/19 23:52 64 16 155/86 95 10/17/19 22:54 20 10/17/19 22:29 97.9 F 85 18 152/90 95 Intake and Output 10/17/19 10/18/19 10/18/19 22:59 06:59 14:59 Other: # Voids 1 Weight 72.575 kg 72.575 kg
[2019-10-19] MEDS: PIPERACILLIN-TAZOBACTAM 3.375 GM in SODIUM CHLORIDE 0.9% 100 ML IVPB SCH ×3 (07:54→22:59)
[2019-10-19] MEDS: SODIUM CHLORIDE 0.9% 1,000 ML IV SCH (07:54)
[2019-10-19] MEDS: MAGNESIUM OXIDE 400 MG TAB PO SCH (07:55)
[2019-10-19] MEDS: PANTOPRAZOLE 40 MG/10 ML VIAL IV SCH (07:55)
[2019-10-19] MEDS: CYANOCOBALAMIN 500 MCG TAB PO SCH (07:55)
[2019-10-19] MEDS: HEPARIN SODIUM,PORCINE 5,000 UNIT/ML 1 ML VIAL SQ SCH ×3 (07:55→22:59)
[2019-10-19] MEDS: TAMSULOSIN 0.4 MG CAP.ER.24H PO SCH (07:55)
[2019-10-19] MEDS: IPRATROPIUM-ALBUTEROL 3 ML NEB INHALATION PRN ×3 (08:08→18:46)
[2019-10-19] MEDS: methylPREDNISolone SOD SUCCI 40 MG/ML 1 ML VIAL IV SCH ×3 (09:31→22:59)
--- NOTE | 2019-10-19 11:24 | P.PN ---
Subjective Progress Note Date: 10/19/19 Principal diagnosis: Acute aspiration suspected with secondary shortness of breath and bilateral pulmonary infiltrates This is a 64-year-old male patient was referred to us for aspiration pneumonia. He was initially seen in an outside hospital and the patient is known to have p revious history of esophageal cancer and partial esophagectomy has been done with a gastric pull-through. 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 The patient apparently was having some increased shortness of breath and cough and productive think you're or sputum for almost a week. His was concerned that the patient has aspirated and the patient was also throwing up earlier that week out of his sleep. Since then, the patient has been having worsening shortness of breath. No fever at home. He is on oxygen. Cough has been productive. No nausea for now. No chest pain. For that reason she was brought into the hospital. The patient is under the care of Dr. Wilder regarding his esophageal cancer. The most recent CAT scan of the chest that was done in June 2019 showed emphysema, 3 mm left upper lobe nodule, no new nodules are identified, lungs were free of any infiltrates and there was evidence of esophagectomy and gastric pull through procedure and left diaphragmatic hernia containing several loops of bowel. Otherwise unchanged and there was no evidence of any recurrence malignancy. The patient is currently on IV Zosyn. I reviewed her follow-up chest x-ray and the patient has bilateral lower lobe pulmonary infiltrates that needs to be further investigated. He is currently on 3 L of oxygen by nasal cannula which was weaned down to 2 L with a pulse ox of 98%. Is afebrile. He is hemodynamically stable. No nausea. No vomiting. No diarrhea. No abdominal pain. No other significant events otherwise for now. On 10/19/2019 patient seen in follow-up on general medical floor. He is awake and alert, in no acute distress, however seems to be more bronchospastic on today's exam, with diffuse wheezes, his pro-calcitonin level came back at 0.25, his: 19 PCR was negative. No fever or chills, he is on 2 L of oxygen the pulse ox of 94%. He remains on a Zosyn for antibiotic coverage, maintenance IV fluids are 0.9 normal saline at a rate of 50 ML per hour, remains on breathing treatments, patient has not been able to produce any phlegm specimen, blood cultures have shown no growth. CT chest has been reviewed showing small bilateral pleural effusions, and interval development increased density at posterior right lung and possibly within left lung likely related to increased atelectasis. No hemoptysis, no complaints of chest pain, no altered mentation. Objective - Vital Signs Vital signs: Vital Signs Temp 98.2 F 10/19/19 07:33 Pulse 80 10/19/19 08:21 Resp 16 10/19/19 07:33 BP 146/89 10/19/19 07:33 Pulse Ox 94 L 10/19/19 07:33 Intake & Output 10/18/19 10/19/19 10/19/19 18:59 06:59 18:59 Intake Total 855 700 Output Total 2 Balance 855 698 Intake: Intake, IV Titration 450 700 Amount Piperacillin-Tazobactam 3 100 .375 gm In Sodium Chloride 0.9% 100 ml @ 25 mls/hr IVPB Q8HR EDER Rx# :[id number] Sodium Chloride 0.9% 1, 450 600 000 ml @ 50 mls/hr IV . Q20H EDER Rx#:[id number] Oral 405 Output: Gastric Drainage 2 Other: Voiding Method Toilet Urinal # Voids 2 # Bowel Movements 1 - Exam GENERAL EXAM: Alert, very pleasant, 64-year-old thin white male, on 2 L of oxygen and the pulse ox of 94%, comfortable in no apparent distress. HEAD: Normocephalic/atraumatic. EYES: Normal reaction of pupils, equal size. Conjunctiva pink, sclera white. NOSE: Clear with pink turbinates. THROAT: No erythema or exudates. NECK: No masses, no JVD, no thyroid enlargement, no adenopathy. CHEST: No chest wall deformity. Symmetrical expansion. LUNGS: Equal air entry with diffuse wheezes CVS: Regular rate and rhythm, normal S1 and S2, no gallops, no murmurs, no rubs ABDOMEN: Soft, nontender. No hepatosplenomegaly, normal bowel sounds, no guarding or rigidity. EXTREMITIES: No clubbing, no edema, no cyanosis, 2+ pulses and upper and lower extremities. MUSCULOSKELETAL: Muscle strength and tone normal. SPINE: No scoliosis or deformity SKIN: No rashes CENTRAL NERVOUS SYSTEM: Alert and oriented -3. No focal deficits, tone is normal in all 4 extremities. PSYCHIATRIC: Alert and oriented -3. Appropriate affect. Intact judgment and insight. - Labs Labs: Abnormal Lab Results - Last 24 Hours (Table) 10/18/19 Range/Units 10:48 Procalcitonin 0.25 H (0.02-0.09) ng/mL Microbiology - Last 24 Hours (Table) 10/17/19 23:29 Blood Culture - Preliminary Blood No Growth after 24 hours Assessment and Plan Plan: Assessment: 1 acute aspiration suspected with secondary shortness of breath and development of bilateral lower lobe pulmonary infiltrates. This is to be further investigated. Currently on IV Zosyn. 2 history of esophageal cancer with esophagectomy gastric pull. The patient has chronic dysphagia and acid reflux which could predispose him essentially to have aspirations. The patient has undergone surgery, as esophagectomy with gastric pull followed by chemoradiation therapy back in . 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 He also has some issues with balance 4 previous history of GI bleed, none for now 5 history of obstructive sleep apnea not utilizing any form of CPAP for now 6 paroxysmal atrial fibrillation current rhythm is sinus 7 History of left heel wound which is been essentially improving and the patient wears special medical issues in that regard and he uses a wheelchair/cane 8 dysphagia 9 BPH Plan: CT of the chest results have been reviewed, pro-calcitonin is borderline, continue with Zosyn for empiric antibiotic coverage, patient has been afebrile, no worsening dyspnea, will continue breathing treatments, will add steroids for increased wheezing on today's exam, consult speech therapy for swallow evaluation. Repeat blood work in the morning, follow-up pro-calcitonin I performed a history & physical examination of the patient and discussed their management with my nurse practitioner, Miracle Duncan. I reviewed the nurse practitioner's note and agree with the documented findings and plan of care. Lung sounds are positive for diffuse wheezes throughout the lung otero. The findings and the impression was discussed with the patient. I attest to the documentation by the nurse practitioner. Time with Patient: Less than 30
[2019-10-19 11:25] LABS: Basophils % (A) 0 %; Eosinophils # (A) 0.6 k/uL (0-0.7); Eosinophils % (A) 7 %; HCT 42.8 % (39.0-53.0); HGB 13.3 gm/dL (13.0-17.5); Lymphocytes # (A) 0.4 k/uL (1.0-4.8); Lymphocytes % (A) 5 %; MCH 28.5 pg (25.0-35.0); MCHC 31.1 g/dL (31.0-37.0); MCV 91.7 fL (80.0-100.0); Mean Platelet Volume 6.8; Monocytes # (A) 0.3 k/uL (0-1.0); Monocytes % (A) 3 %; Neutrophils # (A) 6.8 k/uL (1.3-7.7); Neutrophils % (A) 83 %; Platelet Count 267 k/uL (150-450); RBC 4.66 m/uL (4.30-5.90); RDW 13.2 % (11.5-15.5); WBC 8.2 k/uL (3.8-10.6)
[2019-10-19 11:37] LABS: African American GFR (CKD) >90 (>60 ml/min/1.73 sqM); Anion Gap 5 mmol/L; Blood Urea Nitrogen 5 mg/dL (9-20); Calcium 8.1 mg/dL (8.4-10.2); Carbon Dioxide 25 mmol/L (22-30); Chloride 102 mmol/L (98-107); Glucose 114 mg/dL (74-99); Non-African American GFR(CKD) >90 (>60 ml/min/1.73 sqM); Potassium 3.8 mmol/L (3.5-5.1); Sodium 132 mmol/L (137-145)
[2019-10-19 12:08] LABS: Glucose,Whole Blood 105 mg/dL (75-99)
[2019-10-19] MEDS: INSULIN ASPART (NovoLOG) 100 UNIT/ML VIAL SQ SCH ×3 (12:18→21:11)
--- NOTE | 2019-10-19 16:37 | P.CONS ---
History of Present Illness - Reason for Consult Consult date: 10/19/19 Possible aspiration pneumonia. History of esophageal cancer - History of Present Illness This is a very 64 yr old [facility] patient, followed by Dr Wilder in the office. He had presented with dysphagea to solid food for about one month duration,he underwent EGD on 09/24/2016 which revealed circumferential lesion at GE junction ,biopsy was positive for high grade dysplasia with feature focally consistent with adenocarcinoma. On 09/24/2016,he also had a CT scan of chest/abdomen/pelvis which revealed 1.9cm right kidney mass,otherwise no evidence of metastatic disease. He had a ruptured brain aneurysm in 1990 which led to short term memory deficit,had a brain shunt,neurogenic bladder,otherwise,no significant co-morbidities. On 10/08/2016,EUS revealed T2N1 disease,repeat biopsy was positive for invasive adencarcinoma. On 10/16/2016,PET scan revealed suspicious uptake at distal esophagus,otherwise negative. On 11/01/2016,he started concurrent chemoradiation therapy,he completed chemotherapy on 11/29/2016 and XRT on 12/06/2016. He had esophagectomy and J tube on 02/04/2017 at [facility],pathology revealed residual invasive cancer in esophagous,06/06 nodes was postive. On 06/20/2017,CT scan of chest/abdomen/pelvis were negative for recurrence,stable kidney mass. On 10/03/2017,he had EGD done,no local recurrence. On 04/24/2018,repeat CT scan of chest/abdomen/pelvis revealed no recurrence of esophageal cancer but enlarging right kidney mass On 03/19/2019,CT scan of chest/abdomen/pelvis revealed 3 small lung nodule(2- 5mm),relatively stable kidney mass. On 06/20/2019,repeat CT scan of chest/abdomen/pelvis revealed no evidence of recurrence,resolution of lung nodules,stable right kidney mass. Oncologic history is as above. The patient came into the emergency room, as he had been having increased shortness of breath for at least the past week. He also appeared to have some upper airway congestion, and cough productive of whitish to yellowish sputum. CT chest revealed development of masslike consolidation in the right base, as well as consolidation in the left lung. While mass lesion was not ruled out, this was felt to be more consistent with atelectasis/pneumonia, most likely due to aspiration according to pulmonary evaluation. As noted the patient's short-term memory is quite poor. According coughs records there is no history of persistent dysphagia. However on questioning the patient stated that he does have difficulty with swallowing, and feeling of choking and cough intermittently. He could not provide further details as to the exact timeline stated that this happens once in a while. Review of Systems Constitutional: Reports weakness Eyes: denies blurred vision, denies pain Ears: deny: decreased hearing, ear discharge, earache, tinnitus Ears, nose, mouth and throat: Reports dysphagia (Intermittent for patient) Cardiovascular: Reports shortness of breath, Denies chest pain Respiratory: Reports congestion, Reports cough with sputum, Reports dyspnea Gastrointestinal: Reports as per HPI Genitourinary: Reports as per HPI Musculoskeletal: Reports muscle weakness Integumentary: Denies pruritus, Denies rash Neurological: Reports memory loss, Reports weakness Psychiatric: Reports difficulty concentrating, Reports memory loss Endocrine: Denies fatigue, Denies weight change Hematologic/Lymphatic: Reports as per HPI Past Medical History Past Medical History: Atrial Fibrillation, Cancer, Seizure Disorder, Sleep Apnea/CPAP/BIPAP Additional Past Medical History / Comment(s): DYSPHAGIA, HX OF ESOPHAGEAL CA,ESOPHAGUS RECONSTRUCTED, CHEMO AND RADIATION 2017, past hx. 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 ago-residual short term memory impairment, & comprehension, balance problems @times,LEFT SIDED "NEGLECT" HX OF SEIZURE POST ANEURYSM, HX OF AFIB, NO LONGER ON MEDICATION FOR THAT lt. heel wound, DOESN'T USE CPAP, LEFT HEEL WOUND HEALING, WEARS SPECIAL SHOE DAYTIME, AND BOOT AT NIGHT. HAD DEBRIDEMENT OF LEFT HEEL IN WOUND CENTER, USING WHEELCHAIR OR CANE; RIGHT KIDNEY MASS-DR MONITORING History of Any Multi-Drug Resistant Organisms: None Reported Past Surgical History: Cholecystectomy, Joint Replacement Additional Past Surgical History / Comment(s): PARTIAL LEFT HIP REPLACEMENT, RECONSTRUCTION OF ESOPHAGUS, repair of aneurysm w/clip, has brain shunt-not sure if still functions, repair torn retina Past Anesthesia/Blood Transfusion Reactions: Previous Problems w/ Anesthesia Additional Past Anesthesia/Blood Transfusion Reaction / Comm: very slow to wake up-doesn't need much per spouse Past Psychological History: Anxiety Additional Psychological History / Comment(s): SPOUSE STATES ESPECIALLY WHEN HE DOES NOT SEE HER Smoking Status: Former smoker Past Alcohol Use History: Rare Additional Past Alcohol Use History / Comment(s): smoked occasional cigars 30 yrs. ago, AND CHEWED TOBACCO, Past Drug Use History: None Reported - Past Family History Mother Family Medical History: Unable to Obtain Medications and Allergies Home Medications Medication Instructions Recorded Confirmed Type Tamsulosin HCl [Flomax] 0.4 mg PO DAILY 05/26/17 10/18/19 History Aspirin [Adult Low Dose Aspirin EC] 81 mg PO DAILY 09/29/17 10/18/19 History Cyanocobalamin (Vitamin B-12) 1,000 mcg PO DAILY 09/29/17 10/18/19 History [Vitamin B-12] Magnesium 250 mg PO DAILY 10/18/19 10/18/19 History Pantoprazole Sodium [Protonix] 40 mg PO DAILY 10/18/19 10/18/19 History Allergies Allergy/AdvReac Type Severity Reaction Status Date / Time No Known Allergies Allergy Verified 10/18/19 08:42 Physical Exam Vitals: Vital Signs Temp Pulse Pulse Resp BP Pulse Ox 10/19/19 08:21 80 10/19/19 08:11 84 10/19/19 07:33 98.2 F 74 16 146/89 94 L 10/19/19 01:40 98.0 F 77 24 133/86 95 10/18/19 18:56 98.1 F 76 22 123/77 95 10/18/19 15:15 16 Intake and Output 10/19/19 10/19/19 10/19/19 06:59 14:59 22:59 Intake Total 550 350 Balance 550 350 Intake: Intake, IV Titration 550 350 Amount Piperacillin-Tazobactam 3 100 100 .375 gm In Sodium Chloride 0.9% 100 ml @ 25 mls/hr IVPB Q8HR EDER Rx# :[id number] Sodium Chloride 0.9% 1, 450 250 000 ml @ 50 mls/hr IV . Q20H EDER Rx#:[id number] Other: Voiding Method Toilet Urinal # Voids 2 # Bowel Movements 1 - Constitutional General appearance: no acute distress - EENT Eyes: EOMI, PERRLA ENT: hearing grossly normal, normal oropharynx - Neck Neck: no lymphadenopathy Thyroid: bilateral: normal size - Respiratory Respiratory: bilateral: diminished (Left greater than right) - Cardiovascular Rhythm: regular Heart sounds: normal: S1, S2 - Gastrointestinal General gastrointestinal: normal bowel sounds, soft - Integumentary Integumentary: normal - Neurologic Neurologic: CNII-XII intact - Musculoskeletal Musculoskeletal: generalized weakness, strength equal bilaterally - Psychiatric Psychiatric: A&O x's 3, appropriate affect Results CBC & Chem 7: 10/19/19 10:58 10/19/19 10:58 Labs: Abnormal Lab Results - Last 24 Hours (Table) 10/18/19 10/19/19 10/19/19 Range/Units 10:48 10:58 10:58 Lymphocytes # 0.4 L (1.0-4.8) k/uL Sodium 132 L (137-145) mmol/L BUN 5 L (9-20) mg/dL Creatinine 0.54 L (0.66-1.25) mg/dL Glucose 114 H (74-99) mg/dL POC Glucose (mg/dL) (75-99) mg/dL Calcium 8.1 L (8.4-10.2) mg/dL Procalcitonin 0.25 H (0.02-0.09) ng/mL 10/19/19 Range/Units 11:46 Lymphocytes # (1.0-4.8) k/uL Sodium (137-145) mmol/L BUN (9-20) mg/dL Creatinine (0.66-1.25) mg/dL Glucose (74-99) mg/dL POC Glucose (mg/dL) 105 H (75-99) mg/dL Calcium (8.4-10.2) mg/dL Procalcitonin (0.02-0.09) ng/mL Microbiology - Last 24 Hours (Table) 10/17/19 23:29 Blood Culture - Preliminary Blood No Growth after 24 hours Chest x-ray: report reviewed CT scan - chest: report reviewed Assessment and Plan (1) Aspiration pneumonia Narrative/Plan: The patient had presented with increasing shortness of breath, with associated symptoms of cough and upper airway congestion as noted. He has developed masslike infiltrates in the lung bases more on the right than the left urine the se were not present on previous CAT scan done in 07/05. According to pulmonary evaluation the appearance is more suggestive of pneumonia milligrams a mass lesion. Given his history aspiration pneumonia is felt to be the more likely diagnosis - The patient is improved with ongoing treatment. Defer to the admitting service and pulmonary medicine for continued management - The patient did give a history of intermittent dysphagia and possible choking. Consider GI referral for endoscopic evaluation for any mechanical issues. Current Visit: Yes Status: Acute Code(s): J69.0 - PNEUMONITIS DUE TO INHALATION OF FOOD AND VOMIT SNOMED Code(s): 999240352 (2) Esophageal cancer Narrative/Plan: Diagnostic and therapeutic circumstances as described. Agents most recent CAT scans from 07/05, as well as during this admission did not show any definite ev idence of cancer recurrence. Therefore it is more likely that his current presentation is not directly related to his history of malignancy. GI referral as indicated for local evaluation and surveillance Current Visit: Yes Status: Acute Code(s): C15.9 - MALIGNANT NEOPLASM OF ESOPHAGUS, UNSPECIFIED SNOMED Code(s): 533840792 Plan: Defer to the admitting service for management of his other medical problems
[2019-10-19 17:16] LABS: Glucose,Whole Blood 158 mg/dL (75-99)
--- NOTE | 2019-10-19 17:53 | P.PN ---
Progress Note - Text Progress Note Date: 10/19/19 Chief Complaint: Cough shortness of breath History of presenting complaint: This is a pleasant 64-year-old patient of Dr. Deluna. Chronic stable medical conditions include atrial fibrillation, sleep apnea,(s) sleep apnea for vision is not too CPAP. Also the right kidney mass that is being monitored. Patient has a history of esophageal cancer with partial esophagectomy. Patient did receive both chemotherapy and finished treatment that was through 2017 with initial diagnoses and treatment completion in 2019. Patient been told is cancer free. Did follow with Dr. Wilder. Patient's had some vomiting at home but subsequently was coughing and he may have aspirated. Still has a cough for some yellow sputum. He was taken out at [facility] where he was pulse ox is 186%. He was transferred down here for aspiration pneumonia. Patient also had a brain aneurysm repair over 27 years ago with appears to be with the coil. And has rather poor short-term memory. Most of the history is obtained per the on the phone and supplemental history from the ER. Admitted with-aspiration pneumonia., Acute hypoxic respiratory failure. Starting oxygen and IV Zosyn. Today-less bouts of coughing. Starting to eat better. Review of systems: Was done for constitutional, cardiovascular, GI, pulmonary. relevant finding as above Active Medications Acetaminophen (Tylenol Tab) 650 mg PO Q6HR PRN PRN Reason: Mild Pain or Fever > 100.5 Albuterol/Ipratropium (Duoneb 0.5 Mg-3 Mg/3 Ml Soln) 3 ml INHALATION RT-Q4H PRN PRN Reason: shortness of breath Last Admin: 10/19/19 15:18 Dose: 3 ml Documented by: Cyanocobalamin (Vitamin B-12) 1,000 mcg PO DAILY [facility] Last Admin: 10/19/19 07:55 Dose: 1,000 mcg Documented by: Heparin Sodium (Porcine) (Heparin) 5,000 unit SQ Q8HR [facility] Last Admin: 10/19/19 16:01 Dose: 5,000 unit Documented by: Sodium Chloride (Saline 0.9%) 1,000 mls @ 50 mls/hr IV .Q20H [facility] Last Admin: 10/19/19 07:54 Dose: 50 mls/hr Documented by: Piperacillin Sod/Tazobactam (Sod 3.375 gm/ Sodium Chloride) 100 mls @ 25 mls/hr IVPB Q8HR [facility] Stop: 10/28/19 00:01 Last Admin: 10/19/19 07:54 Dose: 25 mls/hr Documented by: Ibuprofen (Motrin) 400 mg PO Q6HR PRN PRN Reason: Mild Pain or Fever > 100.5 Insulin Aspart (Novolog) 0 unit SQ ACHS [facility]; Protocol Last Admin: 10/19/19 17:37 Dose: 3 unit Documented by: Magnesium Oxide (Mag-Ox) 200 mg PO DAILY [facility] Last Admin: 10/19/19 07:55 Dose: 200 mg Documented by: Methylprednisolone Sodium Succinate (Solu-Medrol) 40 mg IV Q8HR [facility] Last Admin: 10/19/19 09:31 Dose: 40 mg Documented by: Miscellaneous Information (Pneumonia Protocol Utilized) 1 each PO ONCE PRN PRN Reason: Per Protocol Miscellaneous Information (Rx Info: Iv Contrast Was Given) 1 each MISCELLANE DAILY PRN PRN Reason: Per Protocol Stop: 10/20/19 09:40 Naloxone HCl (Narcan) 0.2 mg IV Q2M PRN PRN Reason: Opioid Reversal Ondansetron HCl (Zofran) 4 mg IVP Q8HR PRN PRN Reason: Nausea And Vomiting Pantoprazole Sodium (Protonix) 40 mg IV DAILY [facility] Last Admin: 10/19/19 07:55 Dose: 40 mg Documented by: Tamsulosin HCl (Flomax) 0.4 mg PO DAILY [facility] Last Admin: 10/19/19 07:55 Dose: 0.4 mg Documented by: Physical examination: VITAL SIGNS: 98, 76, 16, 142/88, 93% room air GENERAL: Propped up in bed, eating, looking more comfortable. EYES: Pupils equal. Conjunctiva normal. HEENT: External appearance of nose and ears normal, oral cavity grossly normal. NECK: JVD not raised; masses not palpable. HEART: First and second heart sounds are normal; no edema. LUNGS:[ Respiratory rate increased,; slightly decreased breath sounds. ABDOMEN: Soft, nontender, liver spleen not palpable, no masses palpable. PSYCH: [Patient able answer simple questions l. INVESTIGATIONS, reviewed in the clinical context: White count 8.2 hemoglobin 13.3 potassium 3.8 bun 5 creatinine 0.54 Previous testing Chest x-ray film personally reviewed by me-bibasal infiltrates Computed tomography scan of the chest-interval development of a masslike area of increased density posterior right lung. Other postsurgical changes. Pro calcitonin 0.25 COVID 19 PCF-not detected Assessment: -Probable aspiration pneumonia. Causing causing hypoxia pulse ox was 86% of the hospital. -Acute hypoxic respiratory failure secondary to aspiration pneumonia -Abdominals mass on the computed tomography scan of the chest in the setting of prior cancer to be further worked up. 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 -GERD -BPH Plan: Continue with IV Zosyn. Clinically doing a bit better. Recurrence of malignancy seems less likely. Other medications to continue.
[2019-10-19 21:05] LABS: Glucose,Whole Blood 175 mg/dL (75-99)
[2019-10-20 07:24] LABS: Glucose,Whole Blood 109 mg/dL (75-99)
[2019-10-20] MEDS: INSULIN ASPART (NovoLOG) 100 UNIT/ML VIAL SQ SCH ×4 (07:27→20:09)
[2019-10-20] MEDS: PANTOPRAZOLE 40 MG/10 ML VIAL IV SCH (07:32)
[2019-10-20] MEDS: methylPREDNISolone SOD SUCCI 40 MG/ML 1 ML VIAL IV SCH ×3 (07:32→23:09)
[2019-10-20] MEDS: HEPARIN SODIUM,PORCINE 5,000 UNIT/ML 1 ML VIAL SQ SCH ×3 (07:32→23:09)
[2019-10-20] MEDS: MAGNESIUM OXIDE 400 MG TAB PO SCH (07:33)
[2019-10-20] MEDS: CYANOCOBALAMIN 500 MCG TAB PO SCH (07:33)
[2019-10-20] MEDS: TAMSULOSIN 0.4 MG CAP.ER.24H PO SCH (07:33)
[2019-10-20] MEDS: PIPERACILLIN-TAZOBACTAM 3.375 GM in SODIUM CHLORIDE 0.9% 100 ML IVPB SCH ×3 (07:33→23:08)
[2019-10-20 08:12] LABS: HCT 44.1 % (39.0-53.0); HGB 14.1 gm/dL (13.0-17.5); MCV 90.6 fL (80.0-100.0); Mean Platelet Volume 7.6; Platelet Count 371 k/uL (150-450); RBC 4.87 m/uL (4.30-5.90); RDW 13.2 % (11.5-15.5); WBC 9.6 k/uL (3.8-10.6)
[2019-10-20 08:23] LABS: African American GFR (CKD) >90 (>60 ml/min/1.73 sqM); Anion Gap 7 mmol/L; Blood Urea Nitrogen 6 mg/dL (9-20); Calcium 8.5 mg/dL (8.4-10.2); Carbon Dioxide 26 mmol/L (22-30); Chloride 100 mmol/L (98-107); Glucose 123 mg/dL (74-99); Non-African American GFR(CKD) >90 (>60 ml/min/1.73 sqM); Potassium 3.4 mmol/L (3.5-5.1); Sodium 133 mmol/L (137-145)
[2019-10-20] MEDS: SODIUM CHLORIDE 0.9% 1,000 ML IV SCH (10:59)
--- NOTE | 2019-10-20 11:27 | P.PN ---
Subjective Progress Note Date: 10/20/19 Principal diagnosis: Acute aspiration pneumonia This is a 64-year-old male patient was referred to us for aspiration pneumonia. He was initially seen in an outside hospital and the patient is known to have previous history of esophageal cancer and partial esophagectomy has been done with a gastric pull-through. 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 The patient apparently was having some increased shortness of breath and cough and productive think you're or sputum for almost a week. His was concerned that the patient has aspirated and the patient was also throwing up earlier that week out of his sleep. Since then, the patient has been having worsening shortness of breath. No fever at home. He is on oxygen. Cough has been productive. No nausea for now. No chest pain. For that reason she was brought into the hospital. The patient is under the care of Dr. Wilder regarding his esophageal cancer. The most recent CAT scan of the chest that was done in June 2019 showed emphysema, 3 mm left upper lobe nodule, no new nodules are identified, lungs were free of any infiltrates and there was evidence of esophagectomy and gastric pull through procedure and left diaphragmatic hernia containing several loops of bowel. Otherwise unchanged and there was no evidence of any recurrence malignancy. The patient is currently on IV Zosyn. I reviewed her follow-up chest x-ray and the patient has bilateral lower lobe pulmonary infiltrates that needs to be further investigated. He is currently on 3 L of oxygen by nasal cannula which was weaned down to 2 L with a pulse ox of 98%. Is afebrile. He is hemodynamically stable. No nausea. No vomiting. No diarrhea. No abdominal pain. No other significant events otherwise for now. On 10/19/2019 patient seen in follow-up on general medical floor. He is awake and alert, in no acute distress, however seems to be more bronchospastic on today's exam, with diffuse wheezes, his pro-calcitonin level came back at 0.25, his: 19 PCR was negative. No fever or chills, he is on 2 L of oxygen the pulse ox of 94%. He remains on a Zosyn for antibiotic coverage, maintenance IV fluids are 0.9 normal saline at a rate of 50 ML per hour, remains on breathing treatments, patient has not been able to produce any phlegm specimen, blood cultures have shown no growth. CT chest has been reviewed showing small bilateral pleural effusions, and interval development increased density at posterior right lung and possibly within left lung likely related to increased atelectasis. No hemoptysis, no complaints of chest pain, no altered mentation. The patient is seen today 10/20/2019 in follow-up on the regular medical floor. He is awake and alert in no acute distress. Maintaining good O2 saturations in the 90s on room air. He's been afebrile. Hemodynamically stable. Blood culture reveals no growth to date. White count 9.6. Hemoglobin 14.1. Sodium 133. Potassium 3.4. Creatinine 0.49. He is continued on DuoNeb inhalations, IV Solu-Medrol, antibiotics in the form of Zosyn. Heparin for DVT prophylaxis. GI services are on the case for possible PEG tube placement. Objective - Vital Signs Vital signs: Vital Signs Temp 97.8 F 10/20/19 07:00 Pulse 84 10/20/19 07:00 Resp 12 10/20/19 07:00 BP 134/82 10/20/19 07:00 Pulse Ox 90 L 10/20/19 07:00 Intake & Output 10/19/19 10/20/19 10/20/19 18:59 06:59 18:59 Intake Total 890 650 Balance 890 650 Intake: Intake, IV Titration 350 650 Amount Piperacillin-Tazobactam 3 100 100 .375 gm In Sodium Chloride 0.9% 100 ml @ 25 mls/hr IVPB Q8HR [facility] Rx# :[id number] Sodium Chloride 0.9% 1, 250 550 000 ml @ 50 mls/hr IV . Q20H [facility] Rx#:[id number] Oral 540 Other: Voiding Method Toilet Toilet Toilet Urinal Urinal Urinal # Voids 4 3 1 - Exam GENERAL EXAM: Alert, very pleasant, 64-year-old thin male patient, on room air, comfortable in no apparent distress. HEAD: Normocephalic/atraumatic. EYES: Normal reaction of pupils, equal size. Conjunctiva pink, sclera white. NOSE: Clear with pink turbinates. THROAT: No erythema or exudates. NECK: No masses, no JVD, no thyroid enlargement, no adenopathy. CHEST: No chest wall deformity. Symmetrical expansion. LUNGS: Equal air entry with crackles in the posterior bases CVS: Regular rate and rhythm, normal S1 and S2, no gallops, no murmurs, no rubs ABDOMEN: Soft, nontender. No hepatosplenomegaly, normal bowel sounds, no g uarding or rigidity. EXTREMITIES: No clubbing, no edema, no cyanosis, 2+ pulses and upper and lower extremities. MUSCULOSKELETAL: Muscle strength and tone normal. SPINE: No scoliosis or deformity SKIN: No rashes CENTRAL NERVOUS SYSTEM: No focal deficits, tone is normal in all 4 extremities. PSYCHIATRIC: Alert and oriented -3. Appropriate affect. Intact judgment and insight. - Labs CBC & Chem 7: 10/20/19 07:25 10/20/19 07:25 Labs: Abnormal Lab Results - Last 24 Hours (Table) 10/19/19 10/19/19 10/19/19 Range/Units 10:58 10:58 11:46 Lymphocytes # 0.4 L (1.0-4.8) k/uL Sodium 132 L (137-145) mmol/L Potassium (3.5-5.1) mmol/L BUN 5 L (9-20) mg/dL Creatinine 0.54 L (0.66-1.25) mg/dL Glucose 114 H (74-99) mg/dL POC Glucose (mg/dL) 105 H (75-99) mg/dL Calcium 8.1 L (8.4-10.2) mg/dL 10/19/19 10/19/19 10/20/19 Range/Units 17:00 20:29 07:22 Lymphocytes # (1.0-4.8) k/uL Sodium (137-145) mmol/L Potassium (3.5-5.1) mmol/L BUN (9-20) mg/dL Creatinine (0.66-1.25) mg/dL Glucose (74-99) mg/dL POC Glucose (mg/dL) 158 H 175 H 109 H (75-99) mg/dL Calcium (8.4-10.2) mg/dL 10/20/19 Range/Units 07:25 Lymphocytes # (1.0-4.8) k/uL Sodium 133 L (137-145) mmol/L Potassium 3.4 L (3.5-5.1) mmol/L BUN 6 L (9-20) mg/dL Creatinine 0.49 L (0.66-1.25) mg/dL Glucose 123 H (74-99) mg/dL POC Glucose (mg/dL) (75-99) mg/dL Calcium (8.4-10.2) mg/dL Microbiology - Last 24 Hours (Table) 10/17/19 23:29 Blood Culture - Preliminary Blood No Growth after 48 hours Assessment and Plan Assessment: 1 acute aspiration suspected with secondary shortness of breath and development of bilateral lower lobe pulmonary infiltrates. This is to be further investigated. Currently on IV Zosyn. 2 history of esophageal cancer with esophagectomy gastric pull. The patient has chronic dysphagia and acid reflux which could predispose him essentially to have aspirations. The patient has undergone surgery, as esophagectomy with gastric pull followed by chemoradiation therapy back in . 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 He also has some issues with balance 4 previous history of GI bleed, none for now 5 history of obstructive sleep apnea not utilizing any form of CPAP for now 6 paroxysmal atrial fibrillation current rhythm is sinus 7 History of left heel wound which is been essentially improving and the patient wears special medical issues in that regard and he uses a wheelchair/cane 8 dysphagia 9 BPH Plan: The patient was seen and evaluated by Dr. Blanco Pulmonary status improved, on room air We'll continue the current treatment plan Repeat chest x-ray in a.m. Possible PEG tube insertion this admission We'll continue to follow I, the cosigning physician, performed a history & physical examination of the patient. Lungs sounds crackles in posterior bases. Maintaining good O2 saturations in the 90s on room air. I discussed the assessment and plan of care with my nurse practitioner, Yaima Bennett. I attest to the above note as dictated by her.
[2019-10-20 11:46] LABS: Glucose,Whole Blood 129 mg/dL (75-99)
[2019-10-20] MEDS: IPRATROPIUM-ALBUTEROL 3 ML NEB INHALATION PRN ×3 (11:53→19:40)
--- NOTE | 2019-10-20 15:08 | CONS ---
CONSULTATION DATE OF CONSULTATION: October 20, 2019. REASON FOR CONSULTATION: Possible endoscopy, history of esophageal cancer. HISTORY OF PRESENT ILLNESS: Patient is a 64-year-old pleasant white male with history of esophageal cancer diagnosed in the past, status post chemo radiation followed by esophageal resection in 2016/[address] Padilla on an outpatient basis. According to his notes, he had a CT scan done in June of 2019 that did not reveal any evidence of recurrence. The patient was admitted to the hospital because of aspiration pneumonia and presently on broad-spectrum antibiotics. He has extremely poor short-term memory. He does not recall most of the history. The patient was admitted to [facility] about 2 weeks ago for shortness of breath and was treated for pneumonia at that time and an upper endoscopy done by me at that time revealed no evidence of recurrence of the esophageal cancer. The gastroesophageal anastomosis had a mild esophagitis noted and there was small amount of retained food in the stomach. The official report is not available at the time of this dictation. The patient does not recall having the procedure done because of memory loss. He denies any dysphagia. He reports no nausea, vomiting. No abdominal pain. PAST MEDICAL HISTORY: Significant for esophageal cancer diagnosed in 2017, status post chemo radiation followed by surgery, history of cholecystectomy and partial left hip replacement. MEDICATIONS: At home, Flomax, aspirin, vitamin B12, magnesium, Protonix. ALLERGIES: None. SOCIAL HISTORY: No smoking. No alcohol use. FAMILY HISTORY: Unremarkable. REVIEW OF SYSTEMS: CARDIOPULMONARY: No chest pain, shortness of breath. No dysuria or hematuria. NEUROLOGY: History of severe short-term memory loss. PSYCHIATRIC unremarkable. ENT/vision unremarkable. CONSTITUTIONAL: He denies any weight loss. No fever, chills, night sweats. PHYSICAL EXAMINATION: He appears comfortable. No apparent distress. Vital signs stable. Blood pressure is 134/86, pulse 84. Temperature 97.8. HEENT examination unremarkable. Conjunctivae pink. Sclerae anicteric. Oral cavity no lesions. NECK no JVD. No lymph node enlargement. CHEST was clear to auscultation. HEART: Regular rate and rhythm. ABDOMEN: Soft, was nontender, nondistended. Bowel sounds are positive. No organomegaly. EXTREMITIES no pedal edema. SKIN no rashes. NEUROLOGIC: Alert and oriented x3. No focal deficits. LABS: Labs done from today WBC 9.6, hemoglobin 14.1, platelets 371. Basic metabolic panel is within normal limits. IMPRESSION: 1. Shortness of breath and bilateral lower lobe pneumonia, possible aspiration. Presently on broad-spectrum antibiotics and pulmonary following the patient closely. 2. History of esophageal cancer diagnosed in 2017, status post surgery. The patient recently had an upper endoscopy done at [facility] during his recent hospitalization 2 weeks ago. Records of which are not available at the time of this dictation, but to my memory it was within normal limits and there was no evidence of esophageal stricture. 3. History of atrial fibrillation. 4. Left heel wound. RECOMMENDATIONS: 1. Obtain records from [facility] regarding recent upper endoscopy. 2. Continue with broad-spectrum antibiotics. 3. We will schedule the patient for a modified barium swallow to see for any evidence of oropharyngeal dysphagia causing aspiration. 4. For now, we will advance diet as tolerated. 5. Follow with you closely. Thank you for this consultation. [id number] / IJN: [id number] /
[2019-10-20 17:15] LABS: Glucose,Whole Blood 124 mg/dL (75-99)
--- NOTE | 2019-10-20 19:25 | P.PN ---
Progress Note - Text Progress Note Date: 10/20/19 Chief Complaint: Cough shortness of breath History of presenting complaint: This is a pleasant 64-year-old patient of Dr. Deluna. Chronic stable medical conditions include atrial fibrillation, sleep apnea,(s) sleep apnea for vision is not too CPAP. Also the right kidney mass that is being monitored. Patient has a history of esophageal cancer with partial esophagectomy. Patient did receive both chemotherapy and finished treatment that was through 2017 with initial diagnoses and treatment completion in 2019. Patient been told is cancer free. Did follow with Dr. Wilder. Patient's had some vomiting at home but subsequently was coughing and he may have aspirated. Still has a cough for some yellow sputum. He was taken out at [facility] where he was pulse ox is 186%. He was transferred down here for aspiration pneumonia. Patient also had a brain aneurysm repair over 27 years ago with appears to be with the coil. And has rather poor short-term memory. Most of the history is obtained per the on the phone and supplemental history from the ER. Admitted with-aspiration pneumonia., Acute hypoxic respiratory failure. Starting oxygen and IV Zosyn. Today-l as per nurse the patient continues to have intermittent his bouts of coughing. With food. Speech therapy has been consulted. Otherwise patient feels comfortable. Review of systems: Was done for constitutional, cardiovascular, GI, pulmonary. relevant finding as above Active Medications Acetaminophen (Tylenol Tab) 650 mg PO Q6HR PRN PRN Reason: Mild Pain or Fever > 100.5 Albuterol/Ipratropium (Duoneb 0.5 Mg-3 Mg/3 Ml Soln) 3 ml INHALATION RT-Q4H PRN PRN Reason: shortness of breath Last Admin: 10/20/19 15:48 Dose: 3 ml Documented by: Cyanocobalamin (Vitamin B-12) 1,000 mcg PO DAILY [facility] Last Admin: 10/20/19 07:33 Dose: 1,000 mcg Documented by: Heparin Sodium (Porcine) (Heparin) 5,000 unit SQ Q8HR [facility] Last Admin: 10/20/19 15:04 Dose: 5,000 unit Documented by: Sodium Chloride (Saline 0.9%) 1,000 mls @ 50 mls/hr IV .Q20H [facility] Last Admin: 10/20/19 10:59 Dose: Not Given Documented by: Piperacillin Sod/Tazobactam (Sod 3.375 gm/ Sodium Chloride) 100 mls @ 25 mls/hr IVPB Q8HR [facility] Stop: 10/28/19 00:01 Last Admin: 10/20/19 15:04 Dose: 25 mls/hr Documented by: Ibuprofen (Motrin) 400 mg PO Q6HR PRN PRN Reason: Mild Pain or Fever > 100.5 Insulin Aspart (Novolog) 0 unit SQ ACHS [facility]; Protocol Last Admin: 10/20/19 17:18 Dose: Not Given Documented by: Magnesium Oxide (Mag-Ox) 200 mg PO DAILY [facility] Last Admin: 10/20/19 07:33 Dose: 200 mg Documented by: Methylprednisolone Sodium Succinate (Solu-Medrol) 40 mg IV Q8HR [facility] Last Admin: 10/20/19 15:04 Dose: 40 mg Documented by: Miscellaneous Information (Pneumonia Protocol Utilized) 1 each PO ONCE PRN PRN Reason: Per Protocol Naloxone HCl (Narcan) 0.2 mg IV Q2M PRN PRN Reason: Opioid Reversal Ondansetron HCl (Zofran) 4 mg IVP Q8HR PRN PRN Reason: Nausea And Vomiting Pantoprazole Sodium (Protonix) 40 mg IV DAILY [facility] Last Admin: 10/20/19 07:32 Dose: 40 mg Documented by: Tamsulosin HCl (Flomax) 0.4 mg PO DAILY [facility] Last Admin: 10/20/19 07:33 Dose: 0.4 mg Documented by: Physical examination: VITAL SIGNS: 97.7, 82, 16, 134/81, 91% on room air GENERAL: Sitting up, comfortable. EYES: Pupils equal. Conjunctiva normal. HEENT: External appearance of nose and ears normal, oral cavity grossly normal. NECK: JVD not raised; masses not palpable. HEART: First and second heart sounds are normal; no edema. LUNGS:[ Respiratory rate normal,; slightly decreased breath sounds. ABDOMEN: Soft, nontender, liver spleen not palpable, no masses palpable. PSYCH: [Patient able answer simple questions l. INVESTIGATIONS, reviewed in the clinical context: White count 9.6 hemoglobin 14.1 potassium 3.4 creatinine 0.49 pro calcitonin 0.14 Previous testing Chest x-ray film personally reviewed by me-bibasal infiltrates Computed tomography scan of the chest-interval development of a masslike area of increased density posterior right lung. Other postsurgical changes. Pro calcitonin 0.25 COVID 19 PCF-not detected Assessment: -Probable aspiration pneumonia. Causing causing hypoxia pulse ox was 86% initially. -Acute hypoxic respiratory failure secondary to aspiration pneumonia -Abdominals mass on the computed tomography scan of the chest in the setting of prior cancer to be further worked up. 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 -GERD -BPH -Assess patient's swallowing . Speech therapy consulted Plan: Continue with IV Zosyn. Await speech therapist evaluation. Modified barium swallow as per GI.
[2019-10-20 20:06] LABS: Glucose,Whole Blood 169 mg/dL (75-99)
[2019-10-21 06:51] LABS: Glucose,Whole Blood 127 mg/dL (75-99)
[2019-10-21] MEDS: INSULIN ASPART (NovoLOG) 100 UNIT/ML VIAL SQ SCH ×2 (07:04→11:51)
[2019-10-21] MEDS: methylPREDNISolone SOD SUCCI 40 MG/ML 1 ML VIAL IV SCH ×2 (07:06→15:00)
[2019-10-21] MEDS: TAMSULOSIN 0.4 MG CAP.ER.24H PO SCH (07:06)
[2019-10-21] MEDS: HEPARIN SODIUM,PORCINE 5,000 UNIT/ML 1 ML VIAL SQ SCH ×2 (07:06→14:59)
[2019-10-21] MEDS: PIPERACILLIN-TAZOBACTAM 3.375 GM in SODIUM CHLORIDE 0.9% 100 ML IVPB SCH ×2 (07:06→15:00)
[2019-10-21] MEDS: MAGNESIUM OXIDE 400 MG TAB PO SCH (07:06)
[2019-10-21] MEDS: CYANOCOBALAMIN 500 MCG TAB PO SCH (07:07)
[2019-10-21] MEDS: SODIUM CHLORIDE 0.9% 1,000 ML IV SCH (07:07)
[2019-10-21] MEDS: PANTOPRAZOLE 40 MG/10 ML VIAL IV SCH (07:07)
[2019-10-21 08:58] VITALS: RESP 16
[2019-10-21] MEDS: IPRATROPIUM-ALBUTEROL 3 ML NEB INHALATION PRN (11:04)
[2019-10-21 11:57] LABS: Glucose,Whole Blood 122 mg/dL (75-99)
--- NOTE | 2019-10-21 12:14 | P.PN ---
Subjective Progress Note Date: 10/21/19 Principal diagnosis: Acute aspiration pneumonia This is a 64-year-old male patient was referred to us for aspiration pneumonia. He was initially seen in an outside hospital and the patient is known to have previous history of esophageal cancer and partial esophagectomy has been done with a gastric pull-through. Note that the patient also has had previous history of [employer]ISTANT aneurysm and stroke and bleed and as such she has been having difficulties with memory and he is not aware of the condition that she isn't. The patient apparently was having some increased shortness of breath and cough and productive think you're or sputum for almost a week. His was concerned that the patient has aspirated and the patient was also throwing up earlier that week out of his sleep. Since then, the patient has been having worsening shortness of breath. No fever at home. He is on oxygen. Cough has been productive. No nausea for now. No chest pain. For that reason she was brought into the hospital. The patient is under the care of Dr. Wilder regarding his esophageal cancer. The most recent CAT scan of the chest that was done in June 2019 showed emphysema, 3 mm left upper lobe nodule, no new nodules are identified, lungs were free of any infiltrates and there was evidence of esophagectomy and gastric pull through procedure and left diaphragmatic hernia containing several loops of bowel. Otherwise unchanged and there was no evidence of any recurrence malignancy. The patient is currently on IV Zosyn. I reviewed her follow-up chest x-ray and the patient has bilateral lower lobe pulmonary infiltrates that needs to be further investigated. He is currently on 3 L of oxygen by nasal cannula which was weaned down to 2 L with a pulse ox of 98%. Is afebrile. He is hemodynamically stable. No nausea. No vomiting. No diarrhea. No abdominal pain. No other significant events otherwise for now. On 10/19/2019 patient seen in follow-up on general medical floor. He is awake and alert, in no acute distress, however seems to be more bronchospastic on today's exam, with diffuse wheezes, his pro-calcitonin level came back at 0.25, his: 19 PCR was negative. No fever or chills, he is on 2 L of oxygen the pulse ox of 94%. He remains on a Zosyn for antibiotic coverage, maintenance IV fluids are 0.9 normal saline at a rate of 50 ML per hour, remains on breathing treatments, patient has not been able to produce any phlegm specimen, blood cultures have shown no growth. CT chest has been reviewed showing small bilateral pleural effusions, and interval development increased density at posterior right lung and possibly within left lung likely related to increased atelectasis. No hemoptysis, no complaints of chest pain, no altered mentation. The patient is seen today 10/20/2019 in follow-up on the regular medical floor. He is awake and alert in no acute distress. Maintaining good O2 saturations in the 90s on room air. He's been afebrile. Hemodynamically stable. Blood culture reveals no growth to date. White count 9.6. Hemoglobin 14.1. Sodium 133. Potassium 3.4. Creatinine 0.49. He is continued on DuoNeb inhalations, IV Solu-Medrol, antibiotics in the form of Zosyn. Heparin for DVT prophylaxis. GI services are on the case for possible PEG tube placement. The patient is seen today 10/21/2019 in follow-up on the regular medical floor. He is currently sitting up in bed. Awake and alert in no acute distress. He is maintaining O2 saturations in the 90s on room air. He's been afebrile. Blood cultures reveal no growth. Blood glucose 122. He is continued on bronchodilators, IV Solu-Medrol, Zosyn. Currently on a dysphagia level III chopped diet. Swallow evaluation pending. Objective - Vital Signs Vital signs: Vital Signs Temp 98.6 F 10/21/19 07:00 Pulse 76 10/21/19 11:11 Resp 16 10/21/19 07:00 BP 139/84 10/21/19 07:00 Pulse Ox 90 L 10/21/19 07:00 Intake & Output 10/20/19 10/21/19 10/21/19 18:59 06:59 18:59 Intake Total 175 Balance 175 Intake: Intake, IV Titration 175 Amount Sodium Chloride 0.9% 1, 175 000 ml @ 50 mls/hr IV . Q20H [facility] Rx#:[id number] Other: Voiding Method Toilet Toilet Toilet Urinal # Voids 1 3 2 - Exam GENERAL EXAM: Alert, very pleasant, 64-year-old thin male patient, on room air, comfortable in no apparent distress. HEAD: Normocephalic/atraumatic. EYES: Normal reaction of pupils, equal size. Conjunctiva pink, sclera white. NOSE: Clear with pink turbinates. THROAT: No erythema or exudates. NECK: No masses, no JVD, no thyroid enlargement, no adenopathy. CHEST: No chest wall deformity. Symmetrical expansion. LUNGS: Equal air entry with crackles in the posterior bases CVS: Regular rate and rhythm, normal S1 and S2, no gallops, no murmurs, no rubs ABDOMEN: Soft, nontender. No hepatosplenomegaly, normal bowel sounds, no guarding or rigidity. EXTREMITIES: No clubbing, no edema, no cyanosis, 2+ pulses and upper and lower extremities. MUSCULOSKELETAL: Muscle strength and tone normal. SPINE: No scoliosis or deformity SKIN: No rashes CENTRAL NERVOUS SYSTEM: No focal deficits, tone is normal in all 4 extremities. PSYCHIATRIC: Alert and oriented -3. Appropriate affect. Intact judgment and insight. - Labs CBC & Chem 7: 10/20/19 07:25 10/20/19 07:25 Labs: Abnormal Lab Results - Last 24 Hours (Table) 10/20/19 10/20/19 10/20/19 Range/Units 07:25 17:13 20:04 POC Glucose (mg/dL) 124 H 169 H (75-99) mg/dL Procalcitonin 0.14 H (0.02-0.09) ng/mL 10/21/19 10/21/19 Range/Units 06:49 11:49 POC Glucose (mg/dL) 127 H 122 H (75-99) mg/dL Procalcitonin (0.02-0.09) ng/mL Microbiology - Last 24 Hours (Table) 10/17/19 23:29 Blood Culture - Preliminary Blood No Growth after 72 hours Assessment and Plan Assessment: 1 acute aspiration suspected with secondary shortness of breath and development of bilateral lower lobe pulmonary infiltrates. This is to be further investigated. Currently on IV Zosyn. 2 history of esophageal cancer with esophagectomy gastric pull. The patient has chronic dysphagia and acid reflux which could predispose him essentially to have aspirations. The patient has undergone surgery, as esophagectomy with gastric pull followed by chemoradiation therapy back in . 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 He also has some issues with balance 4 previous history of GI bleed, none for now 5 history of obstructive sleep apnea not utilizing any form of CPAP for now 6 paroxysmal atrial fibrillation current rhythm is sinus 7 History of left heel wound which is been essentially improving and the patient wears special medical issues in that regard and he uses a wheelchair/cane 8 dysphagia 9 BPH Plan: The patient was seen and evaluated by Dr. Blanco Pulmonary status improved, on room air Continue Zosyn Repeat chest x-ray in a.m. Swallow evaluation pending We'll continue to follow I, the cosigning physician, performed a history & physical examination of the patient. Lungs sounds crackles in posterior bases. Maintaining good O2 saturations in the 90s on room air. I discussed the assessment and plan of care with my nurse practitioner, Yaima Bennett. I attest to the above note as dictated by her.
--- NOTE | 2019-10-21 15:18 | PN ---
PROGRESS NOTE The patient is a 64-year-old pleasant white male admitted to the hospital with possible aspiration pneumonia on broad-spectrum antibiotics, doing well. As per the nursing staff he is on a regular diet, tolerating well. He has no cough. He denies any symptoms. PHYSICAL EXAMINATION: Appears comfortable, no apparent distress. VITAL SIGNS: Stable. Blood pressure 139/84, pulse 79, temperature 98.6. HEENT examination unremarkable. Conjunctivae pink. Sclerae anicteric. Oral cavity no lesions. NECK no JVD or lymph node enlargement. CHEST: Clear to auscultation. HEART: Regular rate and rhythm. ABDOMEN: Soft. Bowel sounds are positive. No organomegaly. EXTREMITIES: No pedal edema. SKIN: No rashes. NEUROLOGIC: Alert and oriented x3. No focal deficits. LABS: From today WBC 9.6, hemoglobin 14.1, platelets normal. Basic metabolic panel is within normal limits. IMPRESSION: 1. Aspiration pneumonia on broad-spectrum antibiotics doing well. 2. History of esophageal cancer in 2017, status post surgery and chemoradiation followed by surgery. Recent upper endoscopy 2 weeks ago at [facility] revealed patent esophageal anastomosis at 20 cm from the incisors with retained food noted in the stomach suggestive of gastroparesis. No evidence of recurrence noted. RECOMMENDATIONS: 1. Continue with antibiotics. 2. Bedside swallow evaluation to rule out aspiration. 3. Continue with regular diet for now as he is tolerating it well. 4. Will sign off at this time. MMODL / IJN: [id number] /
[2019-10-21 15:40] VITALS: BP 124/69; PULSE 81; TEMP 98.2
--- NOTE | 2019-10-21 21:34 | P.DS ---
Providers Date of admission: 10/18/19 00:26 Expected date of discharge: 10/21/19 Attending physician: Vic Chaudhary Consults: 10/17/19 23:34 Consult Physician Stat Consulting Provider: iLz Blanco Consult Reason/Comments: Aspiration pneumonia, esophageal cancer hx, recent dilation Do you want consulting provider notified?: Yes, Notify in am 10/18/19 16:45 Consult Physician Routine Consulting Provider: Love Wilder Consult Reason/Comments: hx esohageal cancer Do you want consulting provider notified?: Yes 10/19/19 16:37 Consult Physician Routine Consulting Provider: Mikel Middleton Consult Reason/Comments: History of esophageal cancer, intermittent dysphagia. EGD evaluation Do you want consulting provider notified?: Yes Primary care physician: [facility] Course: Chief Complaint: Cough shortness of breath History of presenting complaint: This is a pleasant 64-year-old patient of Dr. Deluna. Chronic stable medical conditions include atrial fibrillation, sleep apnea,(s) sleep apnea for vision is not too CPAP. Also the right kidney mass that is being monitored. Patient has a history of esophageal cancer with partial esophagectomy. Patient did receive both chemotherapy and finished treatment that was through 2017 with initial diagnoses and treatment completion in 2019. Patient been told is cancer free. Did follow with Dr. Wilder. Patient's had some vomiting at home but subsequently was coughing and he may have aspirated. Still has a cough for some yellow sputum. He was taken out at [facility] where he was pulse ox is 186%. He was transferred down here for aspiration pneumonia. Patient also had a brain aneurysm repair over 27 years ago with appears to be with the coil. And has rather poor short-term memory. Most of the history is obtained per the on the phone and supplemental history from the ER. Admitted with-aspiration pneumonia., Acute hypoxic respiratory failure. Starting oxygen and IV Zosyn. Today-patient did relatively chopped diet. Eating well. No further symptoms. Seen by Dr. Jed Claros today. Patient was cleared. Patient is doing well. Patient follow with his oncologist. Consultation: Dr. Blanco-pulmonary Dr. Jed Claros-GI Dr. Padilla-oncology Physical examination: VITAL SIGNS: 98.2, 81, 16, 124/69, 91% on room air GENERAL: Sitting up, comfortable. EYES: Pupils equal. Conjunctiva normal. HEENT: External appearance of nose and ears normal, oral cavity grossly normal. NECK: JVD not raised; masses not palpable. HEART: First and second heart sounds are normal; no edema. LUNGS:[ Respiratory rate normal,; slightly decreased breath sounds. ABDOMEN: Soft, nontender, liver spleen not palpable, no masses palpable. PSYCH: [Patient able answer simple questions l. INVESTIGATIONS, reviewed in the clinical context: White count 9.6 hemoglobin 14.1 potassium 3.4 creatinine 0.49 pro calcitonin 0.14 Previous testing Chest x-ray film personally reviewed by me-bibasal infiltrates Computed tomography scan of the chest-interval development of a masslike area of increased density posterior right lung. Other postsurgical changes. Pro calcitonin 0.25 COVID 19 PCF-not detected Assessment: -Probable aspiration pneumonia. POA -Acute hypoxic respiratory failure secondary to aspiration pneumonia POA -Abdominals mass on the computed tomography scan of the chest in the setting of prior cancer to be further worked up. 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 -GERD -BPH Disposition: Home Patient Condition at Discharge: Stable Plan - Discharge Summary Discharge Rx Participant: Yes New Discharge Prescriptions: New predniSONE 0 mg PO DIRECTED #10 tab Continue Tamsulosin HCl [Flomax] 0.4 mg PO DAILY Aspirin [Adult Low Dose Aspirin EC] 81 mg PO DAILY Cyanocobalamin (Vitamin B-12) [Vitamin B-12] 1,000 mcg PO DAILY Pantoprazole Sodium [Protonix] 40 mg PO DAILY Magnesium 250 mg PO DAILY Discharge Medication List Tamsulosin HCl [Flomax] 0.4 mg PO DAILY 05/26/17 [History] Aspirin [Adult Low Dose Aspirin EC] 81 mg PO DAILY 09/29/17 [History] Cyanocobalamin (Vitamin B-12) [Vitamin B-12] 1,000 mcg PO DAILY 09/29/17 [History] Magnesium 250 mg PO DAILY 10/18/19 [History] Pantoprazole Sodium [Protonix] 40 mg PO DAILY 10/18/19 [History] predniSONE 0 mg PO DIRECTED #10 tab 10/21/19 [Rx] Follow up Appointment(s)/Referral(s): oncologist, [Other] - 1 Week Claude Deluna MD [Primary Care Provider] - 1-2 days Patient Instructions/Handouts: Aspiration Pneumonia (DC) Discharge Disposition: HOME SELF-CARE
--- NOTE | 2019-10-22 23:12 | CDI ---
Documentation Clarification Form Date: 10/23/2019 From: Abisai Posada Phone: If you have a question about this query, please contact Karen Henson, Sanitary Plumber at [phone] between 8am and 5pm. Admit Date: 10/18/2019 Discharge Date: 10/21/2019 Patient Name: Umesh Jarquin Visit Number: [id number] ATTENTION: The Clinical Documentation Specialists (CDI) and [facility] Coding Staff appreciate your assistance in clarifying documentation. Please respond to the clarification below the line at the bottom and electronically sign. The CDI & [facility] Coding staff will review the response and follow-up if needed. Please note: Queries are made part of the Legal Health Record. If you have any questions, please contact the author of this message via ITS. Dear Vic Sanchez., The patient presented today from [facility] for concern for aspiration pneumonia after vomiting status post esophageal dilation. History/Risk Factors: Aspiration pneumonia, Acute respiratory failure. WBC : 9.6 Lactic acid: 2.8 Blood cultures: negative Vitals signs on admission: Temperature 97.9 F Pulse Rate 85 Respiratory Rate 18 20 Blood Pressure 152/90 O2 Sat by Pulse 95 Treatment:He is continued on DuoNeb inhalations, IV Solu-Medrol, antibiotics in the form of Zosyn, IV fluids Antibiotics: zosyn. Only In ED under Impression Documented as "Memory impairment, Sepsis, Aspiration pneumonia". In your professional opinion, please clarify if these findings signify one of the following conditions, if known: Condition Sepsis Severe Sepsis Septic Shock Other, please specify Unable to determine No sepsis MTDD
--- NOTE | 2019-10-25 22:03 | CDI ---
Documentation Clarification Form Date: 10/26/2019 From: Abisai Posada Phone: If you have a question about this query, please contact Karen Henson Radiotelephone Operator at [phone] between 8am and 5pm. Admit Date: 10/18/2019 Discharge Date: 10/21/2019 Patient Name: Umesh Jarquin Visit Number: [id number] ATTENTION: The Clinical Documentation Specialists (CDI) and [facility] Coding Staff appreciate your assistance in clarifying documentation. Please respond to the clarification below the line at the bottom and electronically sign. The CDI & [facility] Coding staff will review the response and follow-up if needed. Please note: Queries are made part of the Legal Health Record. If you have any questions, please contact the author of this message via ITS. Dear Vic Sanchez., The patient presented today from [facility] for concern for aspiration pneumonia after vomiting status post esophageal dilation. Patients Admitting Diagnosis: Aspiration pneumonia, Acute Respiratory failure. Procedure performed: Dr. Sarkar is patient's GI specialist, whom did esophageal dilation last week. History/Risk Factors: Aspiration Pneumonia, Acute Respiratory failure, Esophageal cancer. Treatment:He is continued on DuoNeb inhalations, IV Solu-Medrol, antibiotics in the form of Zosyn, IV fluids Antibiotics: zosyn. Patient's had some vomiting at home but subsequently was coughing and he may have aspirated.Still has a cough for some yellow sputum.Patient is a 64-year-old male with a past medical history of esophageal cancer status post partial esophagectomy and recent dilation of the esophagus presented to [facility] for shortness of breath with a productive cough and sputum for the past week. In order to accurately reflect this patients severity of illness, please clarify if Aspiration pneumonia is the result of the surgical procedure (Esophageal Dilation)? Yes No Other, please specify Unable to determine Aspiration pneumonia not as a result of surgical procedure. MTDD
== END 2019-10-21 16:53 | disposition home or self-care (01) | DRG 177 ==
LOC: EC 22:23 → 4SSUR 10-18 00:26
PROVIDERS: ADMIT Hospitalist; ATTEND Hospitalist
DX: J69.0 Pneumonitis due to inhalation of food and vomit (principal); J96.01 Acute respiratory failure with hypoxia; G47.33 Obstructive sleep apnea (adult) (pediatric); K21.0 Gastro-esophageal reflux disease with esophagitis; G40.909 Epilepsy, unspecified, not intractable, without status epilepticus; Z96.642 Presence of left artificial hip joint; F41.9 Anxiety disorder, unspecified; N28.89 Other specified disorders of kidney and ureter; F02.80 Dementia in other diseases classified elsewhere, unspecified severity, without behavioral disturbance, psychotic disturbance, mood disturbance, and anxiety; K31.84 Gastroparesis; N40.0 Benign prostatic hyperplasia without lower urinary tract symptoms; J43.9 Emphysema, unspecified; Z20.828 Contact with and (suspected) exposure to other viral communicable diseases; I48.0 Paroxysmal atrial fibrillation; Z86.79 Personal history of other diseases of the circulatory system; Z79.899 Other long term (current) drug therapy; Z79.82 Long term (current) use of aspirin; Z99.89 Dependence on other enabling machines and devices; Z87.891 Personal history of nicotine dependence; Z92.21 Personal history of antineoplastic chemotherapy; Z92.3 Personal history of irradiation; Z90.49 Acquired absence of other specified parts of digestive tract; Z98.890 Other specified postprocedural states; Z86.73 Personal history of transient ischemic attack (TIA), and cerebral infarction without residual deficits; Z85.01 Personal history of malignant neoplasm of esophagus; Z98.2 Presence of cerebrospinal fluid drainage device
CPT/HCPCS: 36415; 71045; 71260; 80048; 84145; 85025; 85027; 87040; 94640; 96361; 96365; 99285

== ENCOUNTER 2019-11-08 14:44 | Emergency (ER) | payer MEDICARE, BC ==
[2019-11-08 14:50] VITALS: TEMP 98.2
--- NOTE | 2019-11-08 15:26 | ED ---
General Adult HPI - General Chief complaint: Shortness of Breath Stated complaint: sob,coughing,vomiting increased HR Time Seen by Provider: 11/08/19 14:56 Source: patient, RN notes reviewed, old records reviewed Mode of arrival: wheelchair Limitations: no limitations - History of Present Illness Initial comments: 63-year-old male patient past medical history of esophageal cancer in remission, one episode of atrial fibrillation after esophageal surgery, brain aneurysm repair approximately 25 years ago short-term memory loss from this, presents to ED for chief complaint of cough and shortness of breath. Patient history is mostly obtained by . She reports the patient has memory loss and did not complain of anything. She states that the patient is discharged in the hospital on 10/20 for aspiration pneumonia. Since then he has continued to cough. She checks his pulse oxygenation and she notes that his heart rate is elevated in the low 100s and then his pulse oxygenation was sometimes drop down to the 80s. Patient denies any complaints. Systemic: Pt denies fatigue, fever/chills, rash. Pt denies weakness, night sweats, weight loss. Neuro: Pt denies headache, visual disturbances, syncope or pre-syncope. HEENT: Pt denies ocular discharge or irritation, otalgia, rhinorrhea, pharyngitis or notable lymphadenopathy. Cardiopulmonary: Pt denies chest pain, heart palpitations, dyspnea on exertion. Abdominal/GI: Pt denies abdominal pain. : Pt denies dysuria, burning w/ urination, frequency/urgency. Denies new onset urinary or bowel incontinence. MSK: Pt denies myalgia, loss of strength or function in extremities. Neuro: Pt denies new onset weakness, paresthesias. - Related Data Home Medications Medication Instructions Recorded Confirmed Tamsulosin HCl [Flomax] 0.4 mg PO DAILY 05/26/17 11/08/19 Aspirin [Adult Low Dose Aspirin EC] 81 mg PO DAILY 09/29/17 11/08/19 Cyanocobalamin (Vitamin B-12) 1,000 mcg PO DAILY 09/29/17 11/08/19 [Vitamin B-12] Magnesium 250 mg PO DAILY 10/18/19 11/08/19 Pantoprazole Sodium [Protonix] 40 mg PO DAILY 10/18/19 11/08/19 Multivitamins, Thera [Multivitamin 1 tab PO DAILY 11/08/19 11/08/19 (formulary)] Previous Rx's Medication Instructions Recorded Benzonatate [Tessalon Perles] 100 mg PO TID PRN #20 capsule 11/08/19 Allergies Allergy/AdvReac Type Severity Reaction Status Date / Time No Known Allergies Allergy Verified 11/08/19 16:15 Review of Systems ROS Statement: Those systems with pertinent positive or pertinent negative responses have been documented in the HPI. ROS Other: All systems not noted in ROS Statement are negative. Past Medical History Past Medical History: Atrial Fibrillation, Cancer, Seizure Disorder, Sleep Apnea/CPAP/BIPAP Additional Past Medical History / Comment(s): DYSPHAGIA, HX OF ESOPHAGEAL CA,ESOPHAGUS RECONSTRUCTED, CHEMO AND RADIATION 2017, past hx. 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 ago-residual short term memory impairment, & comprehension, balance problems @times,LEFT SIDED "NEGLECT" HX OF SEIZURE POST ANEURYSM, l. heel wound, DOESN'T USE CPAP, LEFT HEEL WOUND HEALING, WEARS SPECIAL SHOE DAYTIME, AND BOOT AT NIGHT. HAD DEBRIDEMENT OF LEFT HEEL IN WOUND CENTER, USING WHEELCHAIR OR CANE; RIGHT KIDNEY MASS-DR MONITORING History of Any Multi-Drug Resistant Organisms: None Reported Past Surgical History: Cholecystectomy, Joint Replacement Additional Past Surgical History / Comment(s): PARTIAL LEFT HIP REPLACEMENT, RECONSTRUCTION OF ESOPHAGUS, repair of aneurysm w/clip, has brain shunt-not sure if still functions, repair torn retina Past Anesthesia/Blood Transfusion Reactions: Previous Problems w/ Anesthesia Additional Past Anesthesia/Blood Transfusion Reaction / Comment(s): very slow to wake up-doesn't need much per spouse Past Psychological History: Anxiety Smoking Status: Former smoker Past Alcohol Use History: Rare Past Drug Use History: None Reported - Past Family History Mother Family Medical History: Unable to Obtain General Exam - General Exam Comments Initial Comments: Constitutional: NAD, AOX3, Pt has pleasant affect. HEENT: NC/AT, trachea midline, neck supple, External ears appear normal, without discharge. Mucous membranes moist. EOM intact. There is no scleral icterus. No pallor noted. Cardiopulmonary: RRR, no murmurs, rubs or gallops, no JVD noted. Lungs CTAB in anterior and posterior otero. No peripheral edema. Abdominal exam: Abdomen soft and non-distended. Abdomen non-tender to palpation in all 4 quadrants. No hepatosplenomegaly. No ecchymosis. Neuro: CN II-XII grossly intact. No nuchal rigidity. No raccon eyes. MSK: Full active ROM in upper and lower extremities. Limitations: no limitations Course Vital Signs 11/08/19 11/08/19 11/08/19 14:47 14:49 14:58 Temperature 98.2 F Pulse Rate 101 H Respiratory 20 20 20 Rate Blood Pressure 122/78 O2 Sat by Pulse 95 Oximetry 11/08/19 11/08/19 11/08/19 15:49 16:00 17:00 Temperature Pulse Rate 95 95 95 Respiratory 20 20 20 Rate Blood Pressure 109/80 109/80 O2 Sat by Pulse 95 95 95 Oximetry 11/08/19 11/08/19 18:00 19:03 Temperature Pulse Rate 91 86 Respiratory 20 18 Rate Blood Pressure 122/84 113/77 O2 Sat by Pulse 95 95 Oximetry Medical Decision Making - Medical Decision Making 64-year-old male patient past medical history of esophageal cancer in remission, one episode of atrial fibrillation after esophageal surgery, brain aneurysm repair approximately 25 years ago short-term memory loss from this, presents to ED for chief complaint of cough and shortness of breath. Patient history is mostly obtained by . She reports the patient has memory loss and did not complain of anything. She states that the patient is discharged in the hospital on 10/20 for aspiration pneumonia. Since then he has continued to cough. She checks his pulse oxygenation and she notes that his heart rate is elevated in the low 100s and then his pulse oxygenation was sometimes drop down to the 80s. Patient denies any complaints. Patient will signs are stable, afebrile. Physical exam done so acute pathology. Laboratory investigations were obtained and these displayed mild hypokalemia which was supplemented. Troponin was negative. D-dimer was mildly elevated. CT of chest was performed on display any evidence of pulmonary embolism. Bilateral lateral lower lobe mild infiltrate atelectasis is improved compared to old CAT scan. There is clearing of bilateral pleural effusions. expressed concern that patient has been having issues with coughing until he vomits at night.. Patient had a recent swallow study endoscopy for both reportedly benign. Patient starting oral intake in ED without difficulty. Temperature pulse ox was obtained and patient ambulated around the emergency department without difficulty with pulse ox never dropping below 95%. Patient declines Covid test. Patient will be discharged will follow up with primary care provider as well as general surgeon Dr. Briones who manages patient's throat and perform dilations reportedly. They ready have an appointment. states that there is seen by Dr. Claros in- hospital. Also recommend follow-up with this. Patient will return to ED if condition worsens in anyway. Will be prescribed cough medication to pharmacy per request. Otherwise follow-up with primary care provider as well as the previously mentioned consultants. Case discussed in depth with Dr. Monroy. - Lab Data Result diagrams: 11/08/19 15:40 11/08/19 15:40 Lab Results 11/08/19 11/08/19 11/08/19 Range/Units 15:40 15:40 15:40 WBC 10.2 (3.8-10.6) k/uL RBC 4.65 (4.30-5.90) m/uL Hgb 13.6 (13.0-17.5) gm/dL Hct 41.9 (39.0-53.0) % MCV 90.1 (80.0-100.0) fL MCH 29.2 (25.0-35.0) pg MCHC 32.4 (31.0-37.0) g/dL RDW 13.4 (11.5-15.5) % Plt Count 250 (150-450) k/uL Neutrophils % 80 % Lymphocytes % 8 % Monocytes % 6 % Eosinophils % 5 % Basophils % 1 % Neutrophils # 8.1 H (1.3-7.7) k/uL Lymphocytes # 0.8 L (1.0-4.8) k/uL Monocytes # 0.6 (0-1.0) k/uL Eosinophils # 0.5 (0-0.7) k/uL Basophils # 0.1 (0-0.2) k/uL PT 10.9 (9.0-12.0) sec INR 1.1 (<1.2) APTT 26.1 (22.0-30.0) sec D-Dimer 0.62 H (<0.60) mg/L FEU Sodium 136 L (137-145) mmol/L Potassium 3.3 L (3.5-5.1) mmol/L Chloride 97 L (98-107) mmol/L Carbon Dioxide 28 (22-30) mmol/L Anion Gap 11 mmol/L BUN 10 (9-20) mg/dL Creatinine 0.51 L (0.66-1.25) mg/dL Est GFR (CKD-EPI)AfAm >90 (>60 ml/min/1.73 sqM) Est GFR (CKD-EPI)NonAf >90 (>60 ml/min/1.73 sqM) Glucose 114 H (74-99) mg/dL Plasma Lactic Acid Twin (0.7-2.0) mmol/L Calcium 9.1 (8.4-10.2) mg/dL Total Bilirubin 0.6 (0.2-1.3) mg/dL AST 19 (17-59) U/L ALT 16 (4-49) U/L Alkaline Phosphatase 91 (38-126) U/L Troponin I (0.000-0.034) ng/mL Total Protein 6.6 (6.3-8.2) g/dL Albumin 3.6 (3.5-5.0) g/dL 11/08/19 11/08/19 Range/Units 15:40 15:40 WBC (3.8-10.6) k/uL RBC (4.30-5.90) m/uL Hgb (13.0-17.5) gm/dL Hct (39.0-53.0) % MCV (80.0-100.0) fL MCH (25.0-35.0) pg MCHC (31.0-37.0) g/dL RDW (11.5-15.5) % Plt Count (150-450) k/uL Neutrophils % % Lymphocytes % % Monocytes % % Eosinophils % % Basophils % % Neutrophils # (1.3-7.7) k/uL Lymphocytes # (1.0-4.8) k/uL Monocytes # (0-1.0) k/uL Eosinophils # (0-0.7) k/uL Basophils # (0-0.2) k/uL PT (9.0-12.0) sec INR (<1.2) APTT (22.0-30.0) sec D-Dimer (<0.60) mg/L FEU Sodium (137-145) mmol/L Potassium (3.5-5.1) mmol/L Chloride (98-107) mmol/L Carbon Dioxide (22-30) mmol/L Anion Gap mmol/L BUN (9-20) mg/dL Creatinine (0.66-1.25) mg/dL Est GFR (CKD-EPI)AfAm (>60 ml/min/1.73 sqM) Est GFR (CKD-EPI)NonAf (>60 ml/min/1.73 sqM) Glucose (74-99) mg/dL Plasma Lactic Acid Twin 0.8 (0.7-2.0) mmol/L Calcium (8.4-10.2) mg/dL Total Bilirubin (0.2-1.3) mg/dL AST (17-59) U/L ALT (4-49) U/L Alkaline Phosphatase (38-126) U/L Troponin I <0.012 (0.000-0.034) ng/mL Total Protein (6.3-8.2) g/dL Albumin (3.5-5.0) g/dL - EKG Data -: EKG Interpreted by Me (and Dr. Monroy ) EKG Comments: 1) ventricular rate 131, painful and 24, QRS 78, QT/QTc 340/502. Sinus tachycardia and premature atrial complexes. Otherwise normal EKG. 2) ventricular rate 93, NM interval 160, QRS 86, QT/QTc 348/432. Normal sinus rhythm, possible left atrial enlargement, borderline QT, no concern for acute ischemia this time. Disposition Clinical Impression: Cough Disposition: HOME SELF-CARE Condition: Stable Instructions (If sedation given, give patient instructions): Acute Cough (ED) Additional Instructions: Follow-up with primary care provider tomorrow. Follow up with GI and general surgeon tomorrow. Return here if condition worsens in any way. Is patient prescribed a controlled substance at d/c from ED?: No Referrals: Claude Deluna MD [Primary Care Provider] - 1-2 days Steph Briones MD [STAFF PHYSICIAN] - 1-2 days Jael Claros MD [STAFF PHYSICIAN] - 1-2 days
[2019-11-08 15:51] LABS: Basophils # (A) 0.1 k/uL (0-0.2); Basophils % (A) 1 %; Eosinophils # (A) 0.5 k/uL (0-0.7); Eosinophils % (A) 5 %; HCT 41.9 % (39.0-53.0); HGB 13.6 gm/dL (13.0-17.5); Lymphocytes # (A) 0.8 k/uL (1.0-4.8); Lymphocytes % (A) 8 %; MCH 29.2 pg (25.0-35.0); MCHC 32.4 g/dL (31.0-37.0); MCV 90.1 fL (80.0-100.0); Mean Platelet Volume 7.1; Monocytes # (A) 0.6 k/uL (0-1.0); Monocytes % (A) 6 %; Neutrophils # (A) 8.1 k/uL (1.3-7.7); Neutrophils % (A) 80 %; Platelet Count 250 k/uL (150-450); RBC 4.65 m/uL (4.30-5.90); RDW 13.4 % (11.5-15.5); WBC 10.2 k/uL (3.8-10.6)
--- NOTE | 2019-11-08 15:57 | XR ---
EXAMINATION TYPE: XR chest 2V DATE OF EXAM: 11/08/2019 COMPARISON: 10/18/2019 INDICATION: Difficulty breathing TECHNIQUE: Frontal and lateral views of the chest are obtained. FINDINGS: The heart size is normal. The pulmonary vasculature is normal. Mild infiltrate is at the right base. This is improved from earlier in the month. A catheter overlies the right chest. Small left pleural effusion may have developed.. IMPRESSION: 1. Interval development of a small left pleural effusion. 2. Improving right lower lobe infiltrate
[2019-11-08 16:03] LABS: ALT 16 U/L (4-49); AST 19 U/L (17-59); African American GFR (CKD) >90 (>60 ml/min/1.73 sqM); Albumin 3.6 g/dL (3.5-5.0); Alkaline Phosphatase 91 U/L (38-126); Anion Gap 11 mmol/L; Blood Urea Nitrogen 10 mg/dL (9-20); Calcium 9.1 mg/dL (8.4-10.2); Carbon Dioxide 28 mmol/L (22-30); Chloride 97 mmol/L (98-107); Glucose 114 mg/dL (74-99); Non-African American GFR(CKD) >90 (>60 ml/min/1.73 sqM); Potassium 3.3 mmol/L (3.5-5.1); Sodium 136 mmol/L (137-145); Total Bilirubin 0.6 mg/dL (0.2-1.3); Total Protein 6.6 g/dL (6.3-8.2)
[2019-11-08 16:05] LABS: INR 1.1 (<1.2); Partial Thromboplastin Time 26.1 sec (22.0-30.0); Prothrombin Time 10.9 sec (9.0-12.0)
[2019-11-08 16:16] LABS: D-Dimer 0.62 mg/L FEU (<0.60)
[2019-11-08] MEDS ORDERED: SODIUM CHLORIDE 0.9% 500 ML 500 ML IV ONE (16:37)
--- NOTE | 2019-11-08 16:56 | CT ---
EXAMINATION TYPE: CT chest angio for PE DATE OF EXAM: 11/08/2019 COMPARISON: 10/18/2019 HISTORY: SOB CT DLP: 353.8 mGycm Automated exposure control for dose reduction was used. CONTRAST: Performed with IV Contrast, patient injected with 80 mL of Isovue 370. There are 3-D post processed images. FINDINGS: There is esophagectomy with gastric pull-through procedure. There is some patchy infiltrate and atele ctasis at both lung bases and more on the left side. Heart size is normal. There is no pericardial ef fusion. Thoracic aorta shows no evidence of aneurysm or dissection. I see no filling defects in the p ulmonary arteries. There is spurring in the thoracic spine. There is no sign of mediastinal adenopathy. There are no hilar masses. There are a few bilateral bron chial lymph nodes that measure up to 1 cm. IMPRESSION: No evidence of pulmonary embolism. Bilateral lower lobe mild infiltrate and atelectasis is improved compared to old CT scan. There is cl earing of the bilateral pleural effusions.
[2019-11-08] MEDS ORDERED: POTASSIUM CHLORIDE ER 20 MEQ TAB.ER PO STA (18:06)
[2019-11-08 19:04] VITALS: BP 113/77; PULSE 86; RESP 18
== END 2019-11-08 19:05 | disposition home or self-care (01) ==
LOC: EC 14:44
DX: R05 Cough (principal); R06.02 Shortness of breath; R11.10 Vomiting, unspecified; J90 Pleural effusion, not elsewhere classified; R41.3 Other amnesia; I48.91 Unspecified atrial fibrillation; G47.30 Sleep apnea, unspecified; Z79.82 Long term (current) use of aspirin; Z79.899 Other long term (current) drug therapy; Z87.891 Personal history of nicotine dependence; Z99.89 Dependence on other enabling machines and devices; Z96.642 Presence of left artificial hip joint; Z85.01 Personal history of malignant neoplasm of esophagus
CPT/HCPCS: 36415; 93005; 85379; 80053; 83605; 84484; 85025; 85610; 85730; 71046; 71275; 99285; Q9967

== ENCOUNTER 2019-11-09 23:09 | Inpatient (IN) | payer MEDICARE, BC ==
[2019-11-09] MEDS ORDERED: SODIUM CHLORIDE 0.9% 1,000 ML IV STA (23:36)
[2019-11-09] MEDS ORDERED: IPRATROPIUM-ALBUTEROL 3 ML NEB INHALATION STA (23:36)
[2019-11-09] MEDS ORDERED: LORazepam 2 MG/ML INJ IV STA (23:49)
[2019-11-09] MEDS ORDERED: PANTOPRAZOLE 40 MG/10 ML VIAL IVP STA (23:49)
[2019-11-09] MEDS ORDERED: ONDANSETRON 4 MG/2 ML VIAL IVP STA (23:49)
[2019-11-10 00:01] LABS: Basophils % (A) 0 %; Eosinophils # (A) 0.1 k/uL (0-0.7); Eosinophils % (A) 1 %; HCT 48.8 % (39.0-53.0); HGB 15.7 gm/dL (13.0-17.5); Lymphocytes # (A) 0.5 k/uL (1.0-4.8); Lymphocytes % (A) 4 %; MCH 29.3 pg (25.0-35.0); MCHC 32.2 g/dL (31.0-37.0); MCV 91.2 fL (80.0-100.0); Mean Platelet Volume 9.2; Monocytes # (A) 0.4 k/uL (0-1.0); Monocytes % (A) 3 %; Neutrophils # (A) 11.8 k/uL (1.3-7.7); Neutrophils % (A) 92 %; Platelet Count 215 k/uL (150-450); RBC 5.35 m/uL (4.30-5.90); RDW 13.4 % (11.5-15.5); WBC 12.9 k/uL (3.8-10.6)
--- NOTE | 2019-11-10 00:36 | ED ---
SOB HPI - General Chief Complaint: Shortness of Breath Stated Complaint: SOB, vomiting Time Seen by Provider: 11/09/19 23:20 Source: EMS Mode of arrival: EMS Limitations: no limitations, language barrier - Related Data Home Medications Medication Instructions Recorded Confirmed Tamsulosin HCl [Flomax] 0.4 mg PO DAILY 05/26/17 11/08/19 Aspirin [Adult Low Dose Aspirin EC] 81 mg PO DAILY 09/29/17 11/08/19 Cyanocobalamin (Vitamin B-12) 1,000 mcg PO DAILY 09/29/17 11/08/19 [Vitamin B-12] Magnesium 250 mg PO DAILY 10/18/19 11/08/19 Pantoprazole Sodium [Protonix] 40 mg PO DAILY 10/18/19 11/08/19 Multivitamins, Thera [Multivitamin 1 tab PO DAILY 11/08/19 11/08/19 (formulary)] Previous Rx's Medication Instructions Recorded Benzonatate [Tessalon Perles] 100 mg PO TID PRN #20 capsule 11/08/19 Allergies Allergy/AdvReac Type Severity Reaction Status Date / Time No Known Allergies Allergy Verified 11/09/19 23:20 Review of Systems ROS Statement: Those systems with pertinent positive or pertinent negative responses have been documented in the HPI. ROS Other: All systems not noted in ROS Statement are negative. Past Medical History Past Medical History: Atrial Fibrillation, Cancer, Pneumonia, Seizure Disorder, Sleep Apnea/CPAP/BIPAP Additional Past Medical History / Comment(s): DYSPHAGIA, HX OF ESOPHAGEAL CA,ESOPHAGUS RECONSTRUCTED, CHEMO AND RADIATION 2017, past hx. 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 ago-residual short term memory impairment, & comprehension, balance problems @times,LEFT SIDED "NEGLECT" HX OF SEIZURE POST ANEURYSM, l. heel wound, DOESN'T USE CPAP, LEFT HEEL WOUND HEALING, WEARS SPECIAL SHOE DAYTIME, AND BOOT AT NIGHT. HAD DEBRIDEMENT OF LEFT HEEL IN WOUND CENTER, USING WHEELCHAIR OR CANE; RIGHT KIDNEY MASS-DR MONITORING History of Any Multi-Drug Resistant Organisms: None Reported Past Surgical History: Cholecystectomy, Joint Replacement Additional Past Surgical History / Comment(s): PARTIAL LEFT HIP REPLACEMENT, RECONSTRUCTION OF ESOPHAGUS, repair of aneurysm w/clip, has brain shunt-not sure if still functions, repair torn retina Past Anesthesia/Blood Transfusion Reactions: Previous Problems w/ Anesthesia Additional Past Anesthesia/Blood Transfusion Reaction / Comment(s): very slow to wake up-doesn't need much per spouse Past Psychological History: Anxiety Smoking Status: Former smoker Past Alcohol Use History: Rare Past Drug Use History: None Reported - Past Family History Mother Family Medical History: Unable to Obtain General Exam Limitations: no limitations, language barrier Course Vital Signs 11/09/19 11/10/19 11/10/19 23:12 00:42 00:49 Temperature 97.8 F Pulse Rate 111 H 100 104 H Respiratory 20 18 Rate Blood Pressure 139/96 139/89 O2 Sat by Pulse 93 L 93 L Oximetry 11/10/19 11/10/19 11/10/19 00:55 00:59 01:28 Temperature Pulse Rate 96 98 100 Respiratory 22 24 Rate Blood Pressure 132/83 126/99 O2 Sat by Pulse 96 96 Oximetry Medical Decision Making - Lab Data Result diagrams: 11/09/19 23:41 11/10/19 01:09 Lab Results 11/09/19 11/09/19 11/10/19 Range/Units 23:41 23:41 00:29 WBC 12.9 H (3.8-10.6) k/uL RBC 5.35 (4.30-5.90) m/uL Hgb 15.7 (13.0-17.5) gm/dL Hct 48.8 (39.0-53.0) % MCV 91.2 (80.0-100.0) fL MCH 29.3 (25.0-35.0) pg MCHC 32.2 (31.0-37.0) g/dL RDW 13.4 (11.5-15.5) % Plt Count 215 (150-450) k/uL Neutrophils % 92 % Lymphocytes % 4 % Monocytes % 3 % Eosinophils % 1 % Basophils % 0 % Neutrophils # 11.8 H (1.3-7.7) k/uL Lymphocytes # 0.5 L (1.0-4.8) k/uL Monocytes # 0.4 (0-1.0) k/uL Eosinophils # 0.1 (0-0.7) k/uL Basophils # 0.0 (0-0.2) k/uL PT 12.3 H (9.0-12.0) sec INR 1.2 H (<1.2) APTT 24.5 (22.0-30.0) sec Sample Site ABG pH (7.35-7.45) ABG pCO2 (35-45) mmHg ABG pO2 (83-108) mmHg ABG HCO3 (21-25) mmol/L ABG Total CO2 (19-24) mmol/L ABG O2 Saturation (94-97) % ABG Base Excess mmol/L Kory Test FiO2 % Sodium (137-145) mmol/L Potassium (3.5-5.1) mmol/L Chloride (98-107) mmol/L Carbon Dioxide (22-30) mmol/L Anion Gap mmol/L BUN (9-20) mg/dL Creatinine (0.66-1.25) mg/dL Est GFR (CKD-EPI)AfAm (>60 ml/min/1.73 sqM) Est GFR (CKD-EPI)NonAf (>60 ml/min/1.73 sqM) Glucose (74-99) mg/dL POC Glucose (mg/dL) (75-99) mg/dL POC Glu Power Machine Operator ID Plasma Lactic Acid Twin (0.7-2.0) mmol/L Calcium (8.4-10.2) mg/dL Magnesium (1.6-2.3) mg/dL Total Bilirubin (0.2-1.3) mg/dL AST (17-59) U/L ALT (4-49) U/L Alkaline Phosphatase (38-126) U/L Ammonia (<30) umol/L Creatine Kinase (55-170) U/L Troponin I (0.000-0.034) ng/mL NT-Pro-B Natriuret Pep 480 pg/mL Total Protein (6.3-8.2) g/dL Albumin (3.5-5.0) g/dL 11/10/19 11/10/19 11/10/19 Range/Units 00:29 00:29 00:51 WBC (3.8-10.6) k/uL RBC (4.30-5.90) m/uL Hgb (13.0-17.5) gm/dL Hct (39.0-53.0) % MCV (80.0-100.0) fL MCH (25.0-35.0) pg MCHC (31.0-37.0) g/dL RDW (11.5-15.5) % Plt Count (150-450) k/uL Neutrophils % % Lymphocytes % % Monocytes % % Eosinophils % % Basophils % % Neutrophils # (1.3-7.7) k/uL Lymphocytes # (1.0-4.8) k/uL Monocytes # (0-1.0) k/uL Eosinophils # (0-0.7) k/uL Basophils # (0-0.2) k/uL PT (9.0-12.0) sec INR (<1.2) APTT (22.0-30.0) sec Sample Site ABG pH (7.35-7.45) ABG pCO2 (35-45) mmHg ABG pO2 (83-108) mmHg ABG HCO3 (21-25) mmol/L ABG Total CO2 (19-24) mmol/L ABG O2 Saturation (94-97) % ABG Base Excess mmol/L Kory Test FiO2 % Sodium (137-145) mmol/L Potassium (3.5-5.1) mmol/L Chloride (98-107) mmol/L Carbon Dioxide (22-30) mmol/L Anion Gap mmol/L BUN (9-20) mg/dL Creatinine (0.66-1.25) mg/dL Est GFR (CKD-EPI)AfAm (>60 ml/min/1.73 sqM) Est GFR (CKD-EPI)NonAf (>60 ml/min/1.73 sqM) Glucose (74-99) mg/dL POC Glucose (mg/dL) 144 H (75-99) mg/dL POC Glu Power Machine Operator [place] Plasma Lactic Acid Twin 1.4 (0.7-2.0) mmol/L Calcium (8.4-10.2) mg/dL Magnesium (1.6-2.3) mg/dL Total Bilirubin (0.2-1.3) mg/dL AST (17-59) U/L ALT (4-49) U/L Alkaline Phosphatase (38-126) U/L Ammonia (<30) umol/L Creatine Kinase (55-170) U/L Troponin I <0.012 (0.000-0.034) ng/mL NT-Pro-B Natriuret Pep pg/mL Total Protein (6.3-8.2) g/dL Albumin (3.5-5.0) g/dL 11/10/19 11/10/19 11/10/19 Range/Units 01:03 01:09 01:24 WBC (3.8-10.6) k/uL RBC (4.30-5.90) m/uL Hgb (13.0-17.5) gm/dL Hct (39.0-53.0) % MCV (80.0-100.0) fL MCH (25.0-35.0) pg MCHC (31.0-37.0) g/dL RDW (11.5-15.5) % Plt Count (150-450) k/uL Neutrophils % % Lymphocytes % % Monocytes % % Eosinophils % % Basophils % % Neutrophils # (1.3-7.7) k/uL Lymphocytes # (1.0-4.8) k/uL Monocytes # (0-1.0) k/uL Eosinophils # (0-0.7) k/uL Basophils # (0-0.2) k/uL PT (9.0-12.0) sec INR (<1.2) APTT (22.0-30.0) sec Sample Site rrad ABG pH 7.48 H (7.35-7.45) ABG pCO2 34 L (35-45) mmHg ABG pO2 102 (83-108) mmHg ABG HCO3 25 (21-25) mmol/L ABG Total CO2 26 H (19-24) mmol/L ABG O2 Saturation 97.7 H (94-97) % ABG Base Excess 1.4 mmol/L Kory Test Yes FiO2 36 % Sodium 134 L (137-145) mmol/L Potassium 3.7 (3.5-5.1) mmol/L Chloride 96 L (98-107) mmol/L Carbon Dioxide 24 (22-30) mmol/L Anion Gap 14 mmol/L BUN 19 (9-20) mg/dL Creatinine 0.58 L (0.66-1.25) mg/dL Est GFR (CKD-EPI)AfAm >90 (>60 ml/min/1.73 sqM) Est GFR (CKD-EPI)NonAf >90 (>60 ml/min/1.73 sqM) Glucose 147 H (74-99) mg/dL POC Glucose (mg/dL) (75-99) mg/dL POC Glu Power Machine Operator ID Plasma Lactic Acid Twin 1.1 (0.7-2.0) mmol/L Calcium 9.0 (8.4-10.2) mg/dL Magnesium 2.1 (1.6-2.3) mg/dL Total Bilirubin 0.8 (0.2-1.3) mg/dL AST 21 (17-59) U/L ALT 19 (4-49) U/L Alkaline Phosphatase 105 (38-126) U/L Ammonia <9 (<30) umol/L Creatine Kinase 24 L (55-170) U/L Troponin I (0.000-0.034) ng/mL NT-Pro-B Natriuret Pep pg/mL Total Protein 6.6 (6.3-8.2) g/dL Albumin 3.5 (3.5-5.0) g/dL - EKG Data -: EKG Interpreted by Me (EKG shows sinus tachycardia of 110, MI 146 QRS 90 QTC 516) Disposition Clinical Impression: Esophageal cancer, Reflux esophagitis, Dehydration Disposition: ADMITTED IP TO THIS HOSP Condition: Serious Is patient prescribed a controlled substance at d/c from ED?: No Referrals: Claude Deluna MD [Primary Care Provider] - 1-2 days
[2019-11-10 00:53] LABS: Glucose,Whole Blood 144 mg/dL (75-99)
[2019-11-10 01:04] LABS: ABG Base Excess 1.4 mmol/L; ABG HCO3 25 mmol/L (21-25); ABG Oxygen Saturation 97.7 % (94-97); ABG PCO2 34 mmHg (35-45); ABG PH 7.48 (7.35-7.45); ABG PO2 102 mmHg (83-108); ABG TCO2 26 mmol/L (19-24); Allen Test Performed? Yes
[2019-11-10 01:08] LABS: INR 1.2 (<1.2); Partial Thromboplastin Time 24.5 sec (22.0-30.0); Prothrombin Time 12.3 sec (9.0-12.0)
--- NOTE | 2019-11-10 01:40 | XR ---
EXAMINATION TYPE: XR chest 1V DATE OF EXAM: 11/10/2019 COMPARISON: 11/08/2019 HISTORY: Difficulty breathing TECHNIQUE: 2 views FINDINGS: Heart is enlarged. There is mild pulmonary congestion. There is some blunting of the costop hrenic angles. There are chest leads. There is right side ventriculoperitoneal shunt catheter. There is some contrast in the large bowel in the left upper quadrant. There is probably a hiatal hernia. There is increased density over the heart probably due to hiatal h ernia. IMPRESSION: Bilateral pleural effusions. There is bilateral lower lobe mild pulmonary infiltrates. Mi ld pulmonary congestion without obvious heart failure. Left lower lobe pneumonia cannot be excluded.
[2019-11-10 01:48] LABS: ALT 19 U/L (4-49); AST 21 U/L (17-59); African American GFR (CKD) >90 (>60 ml/min/1.73 sqM); Albumin 3.5 g/dL (3.5-5.0); Alkaline Phosphatase 105 U/L (38-126); Anion Gap 14 mmol/L; Blood Urea Nitrogen 19 mg/dL (9-20); Carbon Dioxide 24 mmol/L (22-30); Chloride 96 mmol/L (98-107); Creatine Kinase 24 U/L (55-170); Glucose 147 mg/dL (74-99); Magnesium 2.1 mg/dL (1.6-2.3); Non-African American GFR(CKD) >90 (>60 ml/min/1.73 sqM); Potassium 3.7 mmol/L (3.5-5.1); Sodium 134 mmol/L (137-145); Total Bilirubin 0.8 mg/dL (0.2-1.3); Total Protein 6.6 g/dL (6.3-8.2)
[2019-11-10 02:21] LABS: Lactic Acid, Venous 1.1 mmol/L (0.7-2.0)
[2019-11-10] MEDS ORDERED: SODIUM CHLORIDE 0.9% 500 ML 500 ML IV STA (02:24)
[2019-11-10] MEDS ORDERED: SODIUM CHLORIDE 0.9% 2,000 ML IV STA (02:24)
[2019-11-10] MEDS ORDERED: DEXTROSE 5%-0.45% NACL 1,000 ML IV ONE (04:04)
[2019-11-10] MEDS ORDERED: SODIUM CHLORIDE 0.9% 500 ML 500 ML IV ONE (04:17)
[2019-11-10] MEDS ORDERED: SODIUM CHLORIDE 0.9% 1,000 ML IV ONE (04:17)
--- NOTE | 2019-11-10 04:24 | CT ---
EXAMINATION TYPE: CT brain wo con DATE OF EXAM: 11/10/2019 COMPARISON: None HISTORY: AMS CT DLP: 1158.4 mGycm Automated exposure control for dose reduction was used. There is old right temporal craniotomy defect. There is ventricular shunt catheter with the tip in th e frontal horn left lateral ventricle. Catheter enters the right posterior temporal bone. There is no mass effect nor midline shift. There is apparent aneurysm clip at the anterior clinoid process on th e right side. There is hypodensity anterior right caudate nucleus consistent with old encephalomalac ia. There is mild cerebral atrophy. There is some minimal white matter hypodensity right parietal lob e. The skull base appears intact. IMPRESSION: Previous surgery. 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 No hydrocephalus. No acute intracr anial abnormality.
--- NOTE | 2019-11-10 04:26 | XR ---
EXAMINATION TYPE: XR chest 1V portable DATE OF EXAM: 11/10/2019 COMPARISON: Today HISTORY: Weakness. Central line placement. TECHNIQUE: FINDINGS: There is right jugular catheter with the tip in the right atrium. There is right-sided vent riculoperitoneal shunt catheter. There is no heart failure. There is increased density over the left lower lobe with blunting left costophrenic angle consistent with pleural fluid and pulmonary infiltra te. There is probably a hiatal hernia. There is patchy mild infiltrate right lung base. IMPRESSION: Catheter in good position. Pulmonary infiltrates unchanged compared to exam 2 hours ago. No gross heart failure.
[2019-11-10] MEDS ORDERED: MORPHINE SULFATE 2 MG/ML SYRINGE IVP STA (04:42)
[2019-11-10] MEDS ORDERED: MORPHINE SULFATE 2 MG/ML SYRINGE IM STA (04:42)
[2019-11-10 05:59] LABS: Acetaminophen <10.0 ug/mL; Alcohol <10 mg/dL; Salicylate <1.0 mg/dL
[2019-11-10] MEDS: METOCLOPRAMIDE 5 MG/ML 2 ML VIAL IVP PRN (11:45)
[2019-11-10] MEDS: PANTOPRAZOLE 40 MG/10 ML VIAL IVP SCH ×2 (11:45→20:49)
--- NOTE | 2019-11-10 12:02 | P.CONS ---
History of Present Illness - Reason for Consult Consult date: 11/10/19 Shortness of breath, mental status changes, history of esophageal cancer - History of Present Illness This is a 64 yr old WM patient, followed by Dr Wilder in the office. He had presented with dysphagea to solid food for about one month duration,he underwent EGD on 09/24/2016 which revealed circumferential lesion at GE junction,biopsy was positive for high grade dysplasia with feature focally consistent with adenocarcinoma. On 09/24/2016,he also had a CT scan of chest/abdomen/pelvis which revealed 1.9cm right kidney mass,otherwise no evidence of metastatic disease. 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 On 10/08/2016,EUS revealed T2N1 disease,repeat biopsy was positive for invasive adencarcinoma. On 10/16/2016,PET scan revealed suspicious uptake at distal esophagus,otherwise negative. On 11/01/2016,he started concurrent chemoradiation therapy,he completed chemotherapy on 11/29/2016 and XRT on 12/06/2016. He had esophagectomy and J tube on 02/04/2017 at [facility],pathology revealed residual invasive cancer in esophagous,06/06 nodes was postive. On 06/20/2017,CT scan of chest/abdomen/pelvis were negative for recurrence,stable kidney mass. On 10/03/2017,he had EGD done,no local recurrence. On 04/24/2018,repeat CT scan of chest/abdomen/pelvis revealed no recurrence of esophageal cancer but enlarging right kidney mass On 03/19/2019,CT scan of chest/abdomen/pelvis revealed 3 small lung nodule(2- 5mm),relatively stable kidney mass. On 06/20/2019,repeat CT scan of chest/abdomen/pelvis revealed no evidence of recurrence,resolution of lung nodules,stable right kidney mass. Oncologic history is as above. The patient came into the emergency room in early 11/02, as he had been having increased shortness of breath for at least the past week. He also appeared to have some upper airway congestion, and cough productive of whitish to yellowish sputum. CT chest revealed development of masslike consolidation in the right base, as well as consolidation in the left lung. While mass lesion was not ruled out, this was felt to be more consistent with atelectasis/pneumonia, most likely due to aspiration according to pulmonary evaluation. the patient improved with treatment of the same and was then discharged. He is now admitted with recurrent shortness of breath, and mental status changes. The patient is quite drowsy with somewhat poor recall. Therefore most of the history is obtained from his . She states that the patient does not appear to have any difficulty in swallowing, but appears to have persistent regurgitation causing choking, coughing and vomiting. She states that this has been getting progressively worse since his last admission. She states that food material that has been ingested days before seems to come up Consult was therefore placed a further evaluation and recommendations Case was discussed with Dr. Claros. She confirmed that she had actually done an upper endoscopy in late 10/02 for him. The patient had no evidence of cancer recurrence of stricture. However he had marked gastric process with large amount of retained Erickson in the stomach. According to the patient's he has subsequently had a formal swallow evaluation by his primary care physician within the last week or so, on which he "did fine" Review of Systems Constitutional: Reports weakness, Reports weight loss Eyes: denies blurred vision, denies pain Ears: deny: decreased hearing, ear discharge, earache, tinnitus Ears, nose, mouth and throat: Denies headache, Denies sore throat Cardiovascular: Reports shortness of breath Respiratory: Reports cough, Reports cough with sputum, Reports dyspnea Gastrointestinal: Reports as per HPI, Reports vomiting Genitourinary: Reports as per HPI Musculoskeletal: Reports muscle weakness Integumentary: Denies pruritus, Denies rash Neurological: Reports as per HPI, Reports memory loss Psychiatric: Reports confusion, Reports memory loss Endocrine: Reports fatigue, Reports weight change Hematologic/Lymphatic: Reports as per HPI Past Medical History Past Medical History: Atrial Fibrillation, Cancer, Pneumonia, Seizure Disorder, Sleep Apnea/CPAP/BIPAP Additional Past Medical History / Comment(s): DYSPHAGIA, HX OF ESOPHAGEAL CA,ESOPHAGUS RECONSTRUCTED, CHEMO AND RADIATION 2017, past hx. 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 ago-residual short term memory impairment, & comprehension, balance problems @times,LEFT SIDED "NEGLECT" HX OF SEIZURE POST ANEURYSM, l. heel wound, DOESN'T USE CPAP, LEFT HEEL WOUND HEALING, WEARS SPECIAL SHOE DAYTIME, AND BOOT AT NIGHT. HAD DEBRIDEMENT OF LEFT HEEL IN WOUND CENTER, USING WHEELCHAIR OR CANE; RIGHT KIDNEY MASS-DR MONITORING History of Any Multi-Drug Resistant Organisms: None Reported Past Surgical History: Cholecystectomy, Joint Replacement Additional Past Surgical History / Comment(s): PARTIAL LEFT HIP REPLACEMENT, RECONSTRUCTION OF ESOPHAGUS, repair of aneurysm w/clip, has brain shunt-not sure if still functions, repair torn retina Past Anesthesia/Blood Transfusion Reactions: Previous Problems w/ Anesthesia Additional Past Anesthesia/Blood Transfusion Reaction / Comm: very slow to wake up-doesn't need much per spouse Past Psychological History: Anxiety Additional Psychological History / Comment(s): SPOUSE STATES ESPECIALLY WHEN HE DOES NOT SEE HER Smoking Status: Never smoker Past Alcohol Use History: Rare Additional Past Alcohol Use History / Comment(s): smoked occasional cigars 30 yrs. ago, AND CHEWED TOBACCO, Past Drug Use History: None Reported - Past Family History Mother Family Medical History: Unable to Obtain Medications and Allergies Home Medications Medication Instructions Recorded Confirmed Type Tamsulosin HCl [Flomax] 0.4 mg PO DAILY 05/26/17 11/10/19 History Aspirin [Adult Low Dose Aspirin EC] 81 mg PO DAILY 09/29/17 11/10/19 History Cyanocobalamin (Vitamin B-12) 1,000 mcg PO DAILY 09/29/17 11/10/19 History [Vitamin B-12] Magnesium 250 mg PO DAILY 10/18/19 11/10/19 History Pantoprazole Sodium [Protonix] 40 mg PO DAILY 10/18/19 11/10/19 History Benzonatate [Tessalon Perles] 100 mg PO TID PRN #20 capsule 11/08/19 11/10/19 Rx Multivitamins, Thera [Multivitamin 1 tab PO DAILY 11/08/19 11/10/19 History (formulary)] Allergies Allergy/AdvReac Type Severity Reaction Status Date / Time No Known Allergies Allergy Verified 11/10/19 08:03 Physical Exam Vitals: Vital Signs Temp Pulse Pulse Resp BP BP Pulse Ox 11/10/19 07:00 98.1 F 112 H 20 130/81 91 L 11/10/19 05:50 98.0 F 106 H 22 112/76 92 L 11/10/19 05:00 97.9 F 106 H 24 129/85 93 L 11/10/19 02:00 105 H 26 H 139/90 91 L 11/10/19 01:28 100 24 126/99 96 11/10/19 00:59 98 22 132/83 96 11/10/19 00:55 96 11/10/19 00:49 104 H 11/10/19 00:42 100 18 139/89 93 L 11/09/19 23:12 97.8 F 111 H 20 139/96 93 L Intake and Output 11/09/19 11/10/19 11/10/19 22:59 06:59 14:59 Output Total 0 250 Balance 0 -250 Output: Urine 0 250 Other: Voiding Method Urinal Weight 65.771 kg - Constitutional General appearance: no acute distress - EENT Eyes: EOMI, PERRLA ENT: hearing grossly normal, normal oropharynx - Neck Neck: no lymphadenopathy - Respiratory Respiratory: bilateral: diminished - Cardiovascular Rhythm: regular Heart sounds: normal: S1, S2 - Gastrointestinal General gastrointestinal: normal bowel sounds, soft - Integumentary Integumentary: normal - Neurologic Neurologic: CNII-XII intact - Musculoskeletal Musculoskeletal: generalized weakness, strength equal bilaterally - Psychiatric Patient is drowsy and lethargic. Difficult to assess orientation. He is able to follow commands. Speech is fairly clear. Recall appears to be poor. Results CBC & Chem 7: 11/09/19 23:41 11/10/19 01:09 Labs: Abnormal Lab Results - Last 24 Hours (Table) 11/09/19 11/10/19 11/10/19 Range/Units 23:41 00:29 00:51 WBC 12.9 H (3.8-10.6) k/uL Neutrophils # 11.8 H (1.3-7.7) k/uL Lymphocytes # 0.5 L (1.0-4.8) k/uL PT 12.3 H (9.0-12.0) sec INR 1.2 H (<1.2) ABG pH (7.35-7.45) ABG pCO2 (35-45) mmHg ABG Total CO2 (19-24) mmol/L ABG O2 Saturation (94-97) % Sodium (137-145) mmol/L Chloride (98-107) mmol/L Creatinine (0.66-1.25) mg/dL Glucose (74-99) mg/dL POC Glucose (mg/dL) 144 H (75-99) mg/dL Creatine Kinase (55-170) U/L 11/10/19 11/10/19 Range/Units 01:03 01:09 WBC (3.8-10.6) k/uL Neutrophils # (1.3-7.7) k/uL Lymphocytes # (1.0-4.8) k/uL PT (9.0-12.0) sec INR (<1.2) ABG pH 7.48 H (7.35-7.45) ABG pCO2 34 L (35-45) mmHg ABG Total CO2 26 H (19-24) mmol/L ABG O2 Saturation 97.7 H (94-97) % Sodium 134 L (137-145) mmol/L Chloride 96 L (98-107) mmol/L Creatinine 0.58 L (0.66-1.25) mg/dL Glucose 147 H (74-99) mg/dL POC Glucose (mg/dL) (75-99) mg/dL Creatine Kinase 24 L (55-170) U/L Chest x-ray: report reviewed Assessment and Plan (1) Aspiration pneumonia due to regurgitated food Narrative/Plan: The patient is presenting due to recurrent aspiration pneumonia. Case was discussed in detail with gastroenterology. Imaging studies do not show any evidence of metastatic recurrence. GI has confirmed that EGD did not show any local recurrence of cancer or stricture. Unfortunately the patient appears to have significant gastroparesis which is persistently worsening causing persistent reflux and aspiration. Symptoms have gotten progressively worse over the past several weeks. The patient does not have any actual difficulty in swallowing but subsequently has marked retention of 40 in the stomach followed by persistent regurgitation. - Based on the above, and discussion with GI, the most appropriate course appears to be placement of a J-tube so that the patient can maintain nutrition and minimize oral intake. GI as stated that they will start the patient on some pro kinetic so that he can potentially have at least small amounts a pleasure feeding. Surgical consult will be placed for the same. Keep patient nothing by mouth in the meantime Current Visit: No Status: Acute Code(s): J69.0 - PNEUMONITIS DUE TO INHALATION OF FOOD AND VOMIT SNOMED Code(s): 07509248 (2) Esophageal cancer Narrative/Plan: The patient does not have any evidence of recurrence so far. As noted CT findings during his prior admission appeared to be due to aspiration pneumonia, with current chest x-ray actually showing improvement. EGD has ruled out any evidence of local recurrence. He will continue surveillance as an outpatient Current Visit: Yes Status: Acute Code(s): C15.9 - MALIGNANT NEOPLASM OF ESOPHAGUS, UNSPECIFIED SNOMED Code(s): 946209669 Plan: Defer to the admitting service for management of his other medical problems
[2019-11-10 13:44] VITALS: BMI 20.7
--- NOTE | 2019-11-10 13:52 | XR ---
EXAMINATION TYPE: XR chest 1V portable DATE OF EXAM: 11/10/2019 HISTORY: tachypnea. REFERENCE: Previous study dated 11/10/2019. FINDINGS: There is a right internal jugular catheter in place. Its tip is at the cavoatrial junction. There appears to be contrast within the stomach. There is a large hiatal hernia. The heart is mildly enlarged. There are bibasilar infiltrates. There are bilateral effusions. The overall appearance may have improved slightly from previous. IMPRESSION: SLIGHTLY IMPROVED AERATION, RIGHT LUNG BASE.
--- NOTE | 2019-11-10 14:20 | CONS ---
CONSULTATION DATE OF SERVICE: 11/10/2019 REQUESTING PHYSICIAN: Dr. Deluna and Dr. Padilla. REASON FOR CONSULTATION: Shortness of breath, altered mental status, persistent nausea and vomiting. HISTORY OF PRESENT ILLNESS: The patient is a 64-year-old white male who was diagnosed with esophageal cancer in September of 2003. Subsequently underwent chemo and radiation followed by esophagectomy with gastric pull-through. He was admitted to the hospital because of worsening shortness of breath and persistent nausea and vomiting passive regurgitation. The patient had at least three hospitalizations in the last one month. The first hospitalization was at [facility] for some shortness of breath and aspiration pneumonia. He had an upper endoscopy done by me at that time which revealed patent gastroesophageal anastomosis with no obvious stricture and large amount of retained food noted in stomach suggestive of gastroparesis. Patient since then has been maintained on Protonix 40 mg twice a day. He was discharged home. He was readmitted to the hospital two weeks ago with aspiration pneumonia, treated and discharged home. Came back to the emergency room on twp different occasions in the last one week and now admitted to the hospital because of worsening symptoms. The patient has significant short-term memory loss. His is at the bedside, who has been answering all the questions. Apparently his oral intake has significantly decreased. He lost about 20 pounds in the last 2 or 3 months. PAST MEDICAL HISTORY: Significant for esophageal cancer diagnosed in September of 2016 status post chemo and radiation followed by esophagectomy and currently in remission, history of atrial fibrillation, seizure disorder, sleep apnea. PAST SURGICAL HISTORY: Cholecystectomy, left hip replacement, brain shunt, brain aneurysm with clip placement. MEDICATIONS: Medications at home include Flomax, aspirin, vitamin B12, pantoprazole, magnesium, multivitamin. ALLERGIES: None. SOCIAL HISTORY: Never smoker. No alcohol use. FAMILY HISTORY: Unremarkable. PHYSICAL EXAMINATION: The patient is quite confused but he denies any symptoms. VITAL SIGNS: Stable. Blood pressure is 130/85, pulse rate 112, temperature 98.1. HEENT examination unremarkable. Conjunctivae pink, sclerae anicteric. Oral cavity no lesions. NECK: No JVD or lymph node enlargement. CHEST was clear to auscultation. HEART: Regular rate and rhythm. ABDOMEN: Soft, nontender, nondistended. Bowel sounds are positive. No organomegaly. EXTREMITIES: No pedal edema. NEURO: He is alert, awake, but quite sleepy. LABS: From today WBC 12.9, hemoglobin 15.7, platelets normal. INR 1.2. Basic metabolic panel is within normal limits. IMPRESSION: 1. Nausea, vomiting/severe passive regurgitation in this patient who had prior history of esophageal cancer for which he underwent distal esophagectomy with gastric pull through surgery. An upper endoscopy done about a month ago at [facility] did show evidence of patent anastomosis with no recurrence of any tumor, but there was evidence of retained food in the stomach suggestive of gastroparesis. The patient appears to have symptoms related to the gastroparesis. 2. Progressive weight loss secondary to decreased oral intake. 3. History of seizure disorder. 4. History of esophageal cancer diagnosed in September of 2016, status post radiation and chemo followed by surgery as mentioned above. 5. Recurrent aspiration pneumonia. RECOMMENDATIONS: 1. Keep him n.p.o. for now. 2. Trial of Reglan 5 mg q.6 hours as needed. 3. Protonix 40 mg twice daily. 4. I had a lengthy discussion with the patient's who was at the bedside regarding further management. At this time since his oral intake has decreased and there was evidence of significant gastroparesis related to previous distal esophagectomy and gastric pull through surgery, I recommended that he may be a candidate for a J-tube placement for nutritional purposes. The patient's stated that he had an appointment to see Dr. Briones next Tuesday for the same, but we will consult her during this hospitalization. In the meantime, we will continue with symptomatic and supportive care and follow with you closely. Thank you for this consultation. MMFRANCESL / CHLOÉ: [id number] /
[2019-11-10] MEDS: SODIUM CHLORIDE 0.9% 1,000 ML IV SCH ×2 (14:31→23:22)
[2019-11-10] MEDS ORDERED: HYDROmorphone 0.5 MG/0.5 ML SYRINGE IVP PRN (15:21)
[2019-11-10] MEDS ORDERED: ALPRAZolam 0.25 MG TAB PO PRN (15:21)
[2019-11-10] MEDS ORDERED: IPRATROPIUM-ALBUTEROL 3 ML NEB INHALATION PRN (15:23)
[2019-11-10] MEDS: IPRATROPIUM-ALBUTEROL 3 ML NEB INHALATION SCH ×2 (16:26→20:27)
--- NOTE | 2019-11-10 16:32 | CT ---
EXAMINATION TYPE: CT abdomen pelvis wo con DATE OF EXAM: 11/10/2019 COMPARISON: 06/20/2019 HISTORY: Uncontrolled vomiting. CT DLP: 422.6 mGycm Automated exposure control for dose reduction was used. Images were obtained from the diaphragm to the floor the pelvis with no contrast. There is elevated left diaphragm with left basilar atelectasis. There is large hiatal hernia. There i s gastric pull-through procedure. Entire stomach not included on the exam. There is apparent retained barium in the stomach with metal artifact. Stomach is dilated with fluid. There is some infiltrate a nd atelectasis right lung base with right pleural effusion. Heart size is normal. There is air in the biliary tree. There is cholecystectomy. The bile ducts are not dilated. There is no evidence of pancreatic mass. Spleen is intact. Kidneys have normal size. There is no hydronephrosis. Ureters are not dilated. There is no retroperit galvin adenopathy. Bladder distends smoothly. There is metal artifact from left hip prosthesis. There is no free fluid in the pelvis. There are numerous sigmoid diverticula. I see no sign of diverticulit is. There is ventriculoperitoneal shunt catheter noted. The tip is in the left lower quadrant. There is no evidence of a bowel obstruction. There is no mesenteric edema. There is some contrast in the transverse colon and left colon.. Right colon is not identified. There is apparent right hemicole ctomy. Lumbar spine is intact. I see no focal bony destructive process. IMPRESSION: Dilated stomach with significant retained barium. There is apparent gastric pull-through procedure e vident on the old CT scan and entire stomach not included on the exam. This is suggestive of gastropa resis or gastric outlet obstruction.. Retained contrast material in the large bowel. Air in the bilia ry tree consistent with reflux. Sigmoid diverticulosis without diverticulitis. Infiltrates and atelectasis at both lung bases significantly increased compared to old exam. Right pl eural effusion is new compared to old exam. Dilated stomach significantly increased compared to old e xam.
--- NOTE | 2019-11-10 16:45 | XR ---
EXAMINATION TYPE: XR abdomen 2V DATE OF EXAM: 11/10/2019 COMPARISON: NONE HISTORY: Vomiting TECHNIQUE: Supine and upright views FINDINGS: There is blunting of the costophrenic angles. Heart is enlarged. There is contrast material in the stomach. Stomach is mostly in the chest related to gastric pull-through procedure. There is v entriculoperitoneal shunt catheter. There is left hip prosthesis. There is some contrast material in the left colon. There are clips from cholecystectomy. There is small amount of air in the biliary christiano e. I see no sign of a bowel obstruction. There is no evidence of free air. IMPRESSION: Basilar pulmonary infiltrates and pleural fluid. No free air. No evidence of a bowel obst ruction.
--- NOTE | 2019-11-10 16:56 | HP ---
HISTORY AND PHYSICAL DATE OF SERVICE: 11/10/2019 CHIEF COMPLAINTS: Incessant vomiting and shortness of breath. HISTORY OF PRESENT ILLNESS: This 64-year-old gentleman with a past medical history of multiple medical problems including history of atrial fibrillation, history of pneumonia, seizures, sleep apnea, history of dysphagia, esophageal carcinoma surgery, reconstruction, gastric pull- through; history of brain aneurysm and repair, being followed by Dr. Deluna in the outpatient setting, not feeling well over the past one month. The patient has had incessant vomiting. The patient apparently ( ) over the last one month. The patient apparently ate spoiled yogurt according to the and subsequently patient was treated here and Dr. Claros performed endoscopy which did not show any acute abnormality but because of persistence of shortness of breath and cough the patient taken to [facility] and admitted directly, sent to [facility] for further evaluation and treatment. The patient is unable to give a coherent history. Most of the history is taken with discussion with the ER staff, ER notes as well as discussion with at the bedside. The patient had a right lower pneumonia, possibly aspiration in nature. The patient is being closely monitored. Dr. Calros is following the patient closely, recommended J-tube placement by Dr. Briones. Gastroparesis was suspected. There is no history of trauma. PAST MEDICAL HISTORY: Atrial fibrillation, history of recurrence, seizure disorder, history of dysphagia, cholecystectomy. MEDICATIONS PRIOR TO ADMISSION: 1. Flomax 0.4 daily. 2. Protonix 40 mg. 3. Multivitamins 1 p.o. daily. 4. Magnesium. 5. Vitamin B12. 6. Tessalon Perles. 7. Aspirin 81 mg daily. ALLERGIES: None. SOCIAL HISTORY: No history of smoking, no history of alcohol per chart. FAMILY HISTORY: Could not be taken. REVIEW OF SYSTEMS: Could not be taken because of the patient's change in mental status. PHYSICAL EXAM: Patient is conscious, nonverbal. Pulse 116, blood pressure 129/84, respiration 21, temperature 98.2, pulse ox 94% on 10 L. HEENT: Conjunctivae normal. Oral mucosa moist. NECK: No jugular venous distention. No lymph node enlargement. CARDIOVASCULAR: S1, S2, muffled. No S3, no S4, RESPIRATORY: Diminished breath sounds at the bases. A few scattered rhonchi and crackles. ABDOMEN: Soft, obese, nontender. No mass felt. LEGS: No edema, no swelling. NERVOUS SYSTEM: Higher functions mentioned earlier. Moves all four limbs. No focal motor or sensory deficits. LYMPHATICS: No lymph node in neck or axilla. SKIN: No rash. JOINTS: No active deforming arthropathy. LABS: Sodium 134, potassium 3.7, creatinine ( ). INR 1.2. ASSESSMENT: 1. Incessant vomiting and unable to keep anything down, possibly gastroparesis acute exacerbation, possible acute gastritis. 2. Acute right lower lobe pneumonia, possibly aspiration pneumonia with acute hypoxic respiratory failure. 3. Hyponatremia. 4. History of atrial fibrillation. 5. History of pneumonia. 6. History of sleep apnea. 7. History of dysphagia. 8. History of esophageal carcinoma and surgery and chemoradiation. 9. History of esophageal stenosis. 10.Cerebral aneurysm rupture and treatment. 11.History of seizures. 12.History of cholecystectomy. 13.History of anxiety. 14.History of partial left hip replacement. RECOMMENDATIONS AND DISCUSSION: In this 64-year-old gentleman who presented with multiple complex medical issues, we will monitor the patient closely, continue the current management, continue symptomatic treatment. I recommend empiric antibiotics, bronchodilators, and surgical consultation. Follow closely with pulmonary and multiple consultants. Prognosis extremely guarded. Discussed with the at length who understands. Further recommendations to follow. MMODL / IJN: [id number] /
[2019-11-10] MEDS: PIPERACILLIN-TAZOBACTAM 3.375 GM in SODIUM CHLORIDE 0.9% 100 ML IVPB SCH ×2 (17:15→23:21)
[2019-11-10] MEDS ORDERED: HEPARIN SODIUM,PORCINE 5,000 UNIT/ML 1 ML VIAL SQ SCH (21:00)
[2019-11-11 07:15] LABS: Basophils % (A) 0 %; Eosinophils # (A) 0.1 k/uL (0-0.7); Eosinophils % (A) 1 %; HCT 46.6 % (39.0-53.0); HGB 15.4 gm/dL (13.0-17.5); Lymphocytes # (A) 0.5 k/uL (1.0-4.8); Lymphocytes % (A) 5 %; MCH 30.3 pg (25.0-35.0); MCHC 33.1 g/dL (31.0-37.0); MCV 91.6 fL (80.0-100.0); Mean Platelet Volume 7.5; Monocytes # (A) 0.5 k/uL (0-1.0); Monocytes % (A) 5 %; Neutrophils # (A) 8.8 k/uL (1.3-7.7); Neutrophils % (A) 88 %; Platelet Count 251 k/uL (150-450); RBC 5.09 m/uL (4.30-5.90); RDW 13.4 % (11.5-15.5); WBC 10.1 k/uL (3.8-10.6)
[2019-11-11 07:20] LABS: African American GFR (CKD) >90 (>60 ml/min/1.73 sqM); Anion Gap 11 mmol/L; Blood Urea Nitrogen 10 mg/dL (9-20); Calcium 8.4 mg/dL (8.4-10.2); Carbon Dioxide 24 mmol/L (22-30); Chloride 102 mmol/L (98-107); Glucose 112 mg/dL (74-99); Non-African American GFR(CKD) >90 (>60 ml/min/1.73 sqM); Potassium 3.5 mmol/L (3.5-5.1); Sodium 137 mmol/L (137-145)
[2019-11-11] MEDS ORDERED: DILTIAZEM 125 MG in SODIUM CHLORIDE 0.9% 100 ML IV SCH (08:45)
[2019-11-11] MEDS ORDERED: DILTIAZEM DRIP BOLUS FROM BAG 1 MG SOLN IV ONE (08:45)
[2019-11-11] MEDS ORDERED: POTASSIUM CHLORIDE 10 MEQ in WATER FOR INJECTION 1 100ML.BAG IVPB STA (08:45)
[2019-11-11 08:46] LABS: Glucose,Whole Blood 114 mg/dL (75-99)
[2019-11-11 09:01] LABS: Glucose,Whole Blood 114 mg/dL (75-99)
[2019-11-11] MEDS ORDERED: DIGOXIN 250 MCG/ML 2 ML AMP IVP ONE (09:07)
[2019-11-11] MEDS ORDERED: HEPARIN SODIUM,PORCINE 5,000 UNIT/ML 1 ML VIAL IV ONE (09:09)
[2019-11-11] MEDS: IPRATROPIUM-ALBUTEROL 3 ML NEB INHALATION SCH ×4 (09:09→21:32)
[2019-11-11] MEDS ORDERED: DIGOXIN 250 MCG/ML 2 ML AMP IVP SCH (09:15)
[2019-11-11] MEDS: DILTIAZEM 125 MG in SODIUM CHLORIDE 0.9% 100 ML IV SCH (09:15)
--- NOTE | 2019-11-11 09:17 | P.GSCN ---
History of Present Illness Consult date: 11/11/19 Reason for Consult: Possible J-tube placement History of present illness: Is a 64-year-old male admitted to the hospital with aspiration pneumonia. Patient has a previous history of a GE junction tumor. Patient has had previous history of chemoradiation. Patient underwent recent CAT scan which shows significant consolidation of the lungs suggestive of aspiration pneumonia related to gastroparesis. Past Medical History Past Medical History: Atrial Fibrillation, Cancer, Pneumonia, Seizure Disorder, Sleep Apnea/CPAP/BIPAP Additional Past Medical History / Comment(s): DYSPHAGIA, HX OF ESOPHAGEAL CA,ESOPHAGUS RECONSTRUCTED, CHEMO AND RADIATION 2017, past hx. 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 ago-residual short term memory impairment, & comprehension, balance problems @times,LEFT SIDED "NEGLECT" HX OF SEIZURE POST ANEURYSM, l. heel wound, DOESN'T USE CPAP, LEFT HEEL WOUND HEALING, WEARS SPECIAL SHOE DAYTIME, AND BOOT AT NIGHT. HAD DEBRIDEMENT OF LEFT HEEL IN WOUND CENTER, USING WHEELCHAIR OR CANE; RIGHT KIDNEY MASS-DR MONITORING History of Any Multi-Drug Resistant Organisms: None Reported Past Surgical History: Cholecystectomy, Joint Replacement Additional Past Surgical History / Comment(s): PARTIAL LEFT HIP REPLACEMENT, RECONSTRUCTION OF ESOPHAGUS, repair of aneurysm w/clip, has brain shunt-not sure if still functions, repair torn retina Past Anesthesia/Blood Transfusion Reactions: Previous Problems w/ Anesthesia Additional Past Anesthesia/Blood Transfusion Reaction / Comm: very slow to wake up-doesn't need much per spouse Past Psychological History: Anxiety Additional Psychological History / Comment(s): SPOUSE STATES ESPECIALLY WHEN HE DOES NOT SEE HER Smoking Status: Never smoker Past Alcohol Use History: Rare Additional Past Alcohol Use History / Comment(s): smoked occasional cigars 30 yrs. ago, AND CHEWED TOBACCO, Past Drug Use History: None Reported - Past Family History Mother Family Medical History: Unable to Obtain Medications and Allergies Home Medications Medication Instructions Recorded Confirmed Type Tamsulosin HCl [Flomax] 0.4 mg PO DAILY 05/26/17 11/10/19 History Aspirin [Adult Low Dose Aspirin EC] 81 mg PO DAILY 09/29/17 11/10/19 History Cyanocobalamin (Vitamin B-12) 1,000 mcg PO DAILY 09/29/17 11/10/19 History [Vitamin B-12] Magnesium 250 mg PO DAILY 10/18/19 11/10/19 History Pantoprazole Sodium [Protonix] 40 mg PO DAILY 10/18/19 11/10/19 History Benzonatate [Tessalon Perles] 100 mg PO TID PRN #20 capsule 11/08/19 11/10/19 Rx Multivitamins, Thera [Multivitamin 1 tab PO DAILY 11/08/19 11/10/19 History (formulary)] Allergies Allergy/AdvReac Type Severity Reaction Status Date / Time No Known Allergies Allergy Verified 11/10/19 08:03 Surgical - Exam Vital Signs Temp Pulse Resp BP Pulse Ox 97.8 F 111 H 20 139/96 93 L 11/09/19 23:12 11/09/19 23:12 11/09/19 23:12 11/09/19 23:12 11/09/19 23:12 - General chronically ill - Eyes PERRL - ENT normal pinna - Neck no masses - Cardiovascular Rhythm: regular - Abdomen Abdomen: soft, non tender Results - Labs 11/11/19 06:34 11/11/19 06:34 Abnormal Lab Results - Last 24 Hours (Table) 11/11/19 11/11/19 11/11/19 Range/Units 06:34 06:34 08:44 Neutrophils # 8.8 H (1.3-7.7) k/uL Lymphocytes # 0.5 L (1.0-4.8) k/uL Creatinine 0.51 L (0.66-1.25) mg/dL Glucose 112 H (74-99) mg/dL POC Glucose (mg/dL) 114 H (75-99) mg/dL 11/11/19 Range/Units 08:58 Neutrophils # (1.3-7.7) k/uL Lymphocytes # (1.0-4.8) k/uL Creatinine (0.66-1.25) mg/dL Glucose (74-99) mg/dL POC Glucose (mg/dL) 114 H (75-99) mg/dL Diabetes panel 11/11/19 Range/Units 06:34 Sodium 137 (137-145) mmol/L Potassium 3.5 (3.5-5.1) mmol/L Chloride 102 (98-107) mmol/L Carbon Dioxide 24 (22-30) mmol/L BUN 10 (9-20) mg/dL Creatinine 0.51 L (0.66-1.25) mg/dL Glucose 112 H (74-99) mg/dL Calcium 8.4 (8.4-10.2) mg/dL Calcium panel 11/11/19 Range/Units 06:34 Calcium 8.4 (8.4-10.2) mg/dL Pituitary panel 11/11/19 Range/Units 06:34 Sodium 137 (137-145) mmol/L Potassium 3.5 (3.5-5.1) mmol/L Chloride 102 (98-107) mmol/L Carbon Dioxide 24 (22-30) mmol/L BUN 10 (9-20) mg/dL Creatinine 0.51 L (0.66-1.25) mg/dL Glucose 112 H (74-99) mg/dL Calcium 8.4 (8.4-10.2) mg/dL Adrenal panel 11/11/19 Range/Units 06:34 Sodium 137 (137-145) mmol/L Potassium 3.5 (3.5-5.1) mmol/L Chloride 102 (98-107) mmol/L Carbon Dioxide 24 (22-30) mmol/L BUN 10 (9-20) mg/dL Creatinine 0.51 L (0.66-1.25) mg/dL Glucose 112 H (74-99) mg/dL Calcium 8.4 (8.4-10.2) mg/dL Assessment and Plan Assessment: Gastroparesis Aspiration pneumonia Patient will be evaluated by Dr. Morales for possible J-tube placement
[2019-11-11] MEDS: HEPARIN SOD,PORK IN 0.45% NACL 25,000 UNIT in 0.45% NACL 1 250ML.BAG IV SCH (09:24)
[2019-11-11 09:56] LABS: ALT 13 U/L (4-49); AST 18 U/L (17-59); African American GFR (CKD) >90 (>60 ml/min/1.73 sqM); Albumin 2.8 g/dL (3.5-5.0); Alkaline Phosphatase 99 U/L (38-126); Anion Gap 11 mmol/L; Blood Urea Nitrogen 11 mg/dL (9-20); Calcium 8.2 mg/dL (8.4-10.2); Carbon Dioxide 27 mmol/L (22-30); Chloride 102 mmol/L (98-107); Glucose 118 mg/dL (74-99); Non-African American GFR(CKD) >90 (>60 ml/min/1.73 sqM); Potassium 3.3 mmol/L (3.5-5.1); Sodium 140 mmol/L (137-145); Total Bilirubin 0.6 mg/dL (0.2-1.3); Total Protein 5.6 g/dL (6.3-8.2)
[2019-11-11 09:59] LABS: Basophils % (A) 0 %; Eosinophils # (A) 0.1 k/uL (0-0.7); Eosinophils % (A) 1 %; HCT 44.3 % (39.0-53.0); HGB 14.6 gm/dL (13.0-17.5); Hypochromasia Slight; Lymphocytes # (A) 0.4 k/uL (1.0-4.8); Lymphocytes % (A) 5 %; MCH 30.3 pg (25.0-35.0); MCV 91.8 fL (80.0-100.0); Mean Platelet Volume 7.3; Monocytes # (A) 0.6 k/uL (0-1.0); Monocytes % (A) 7 %; Neutrophils # (A) 8.1 k/uL (1.3-7.7); Neutrophils % (A) 87 %; Platelet Count 272 k/uL (150-450); RBC 4.83 m/uL (4.30-5.90); RDW 13.3 % (11.5-15.5); WBC 9.3 k/uL (3.8-10.6)
[2019-11-11] MEDS ORDERED: FUROSEMIDE 10 MG/ML 4 ML VIAL IV STA (10:00)
--- NOTE | 2019-11-11 10:03 | XR ---
EXAMINATION TYPE: XR chest 1V portable DATE OF EXAM: 11/11/2019 HISTORY: dyspnea. REFERENCE: Previous study dated 11/10/2019. FINDINGS: There is a right internal jugular catheter in place with its tip within the right atrium. T here remains contrast within the patient's large hiatal hernia. There continues to be right basilar airspace disease. This may have worsened slightly. The heart is n ot enlarged. There is blunting of both CP angles and I could not exclude small effusions. There is a large intrathoracic stomach. IMPRESSION: SLIGHT WORSENING IN THE DEGREE OF RIGHT BASILAR AIRSPACE DISEASE.
[2019-11-11 10:05] LABS: D-Dimer 3.37 mg/L FEU (<0.60); INR 1.3 (<1.2); Partial Thromboplastin Time 26.8 sec (22.0-30.0); Prothrombin Time 12.6 sec (9.0-12.0)
[2019-11-11] MEDS: TAMSULOSIN 0.4 MG CAP.ER.24H PO SCH (10:10)
[2019-11-11] MEDS: PANTOPRAZOLE 40 MG/10 ML VIAL IVP SCH ×2 (10:13→20:32)
[2019-11-11] MEDS: PIPERACILLIN-TAZOBACTAM 3.375 GM in SODIUM CHLORIDE 0.9% 100 ML IVPB SCH ×2 (10:13→16:24)
[2019-11-11] MEDS: METOCLOPRAMIDE 5 MG/ML 2 ML VIAL IVP PRN (10:14)
--- NOTE | 2019-11-11 10:45 | CONS ---
CONSULTATION CHIEF COMPLAINT: Atrial fibrillation. Mr. Jarquin is an 64-year-old gentleman with history of carcinoma of the esophagus status post surgery 2 years ago who presented to hospital primarily feeling fatigued, tired, not feeling well. Patient was diagnosed with adenocarcinoma in 2017 and subsequently he has had chemotherapy and radiation therapy. The most recent CT scan of the chest, abdomen, and pelvis did not reveal any residual disease. Patient has a history of atrial fibrillation, while on the floor developed atrial fibrillation with rapid ventricular rate for which Cardiology has been consulted. I am seeing the patient. The patient was brought in to the ICU. His heart rate was in the 200 beats per minute, irregularly irregular. I gave him a bolus of 10 mg of Cardizem with which the heart rate was coming down. I am going to give him a dose of digoxin also. I will obtain a 2D echo primarily to rule out pericardial effusion given the sudden onset atrial fibrillation in a patient with known cancer. PAST MEDICAL HISTORY: Significant for paroxysmal atrial fibrillation, carcinoma of the esophagus, status post surgery. MEDICATIONS: Include Flomax, Protonix, vitamin B12, aspirin. ALLERGIES: There are no known drug allergies. FAMILY HISTORY: Negative for premature coronary artery disease. SOCIAL HISTORY: Negative for smoking, EtOH abuse, or drug abuse. REVIEW OF SYSTEMS: HEENT is unremarkable. Cardiac as described above. Respiratory as described above. GI negative. : Negative. Skin negative. Allergy/Immunology negative. Musculoskeletal significant for arthritis Psychosocial negative. Derm Negative. Endocrine: Negative. Oncological significant for cancer. Rest of the system review is not relevant. PHYSICAL EXAM: Patient appears short of breath at rest. Heart rate is 100 at 90 beats per minute. Blood pressure is 102/70. Respiratory rate is 18. Chest exam reveals good air entry bilaterally. I do not hear any crackles or rhonchi. Heart exam reveals first and second heart sounds, irregular rhythm and a systolic murmur at the left lower sternal border. Abdomen soft. Exam of extremities did not reveal any edema. Peripheral pulses are felt. LAB: Show a hemoglobin of 15.4, platelet count is 250, potassium is 3.5, creatinine is 0.5. Coronavirus is not detected. ASSESSMENT: 1. Persistent atrial fibrillation with rapid ventricular rate. 2. Carcinoma of the esophagus status post surgery. 3. Hypotension secondary to atrial fibrillation. PLAN: I am going to treat the patient with intravenous Cardizem, IV heparin, obtain a 2D echo, hydrate him and give him IV Lanoxin. Further changes to therapy based on how he responds. [id number] / IJN: [id number] /
--- NOTE | 2019-11-11 10:51 | P.CNPUL ---
History of Present Illness Consult date: 11/11/19 Reason for consult: pneumonia History of present illness: A 64-year-old male patient who got transferred to the intensive care unit this morning because of atrial fibrillation with rapid ventricular response. The patient is known to me. I seen him on a previous consultation in early October for aspiration pneumonia. I think he aspirated another time this morning and he subsequently went into A. fib RVR. He is known to have chronic atrial f ibrillation. His heart rate was in the 200s range and the patient was having significant respiratory distress and for that reason the patient got transferred to the intensive care unit. Currently is on 10 L of oxygen by nasal cannula. He is still tachypneic. His heart rate is improved while being on a Cardizem drip at 10 mg an hour and his heart rate currently is running at around 160, irregular consistent with atrial fibrillation. Denies having any chest pain. Note that he has a previous history of CVA and he is unable to volunteer appropriate and reliable history. He does have aspiration due to previous history of esophageal cancer that was resected and the patient has had esophagec wandy with gastric pull and he has gastroparesis and is being considered for a J- tube insertion. I did see him for a consultation approximately 3 weeks ago for an aspiration pneumonia and back then the patient was given IV Zosyn and he was successfully treated and he was discharged. No history of any decompensated heart failure. No leg edema. 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 He doesn't use any CPAP, history of left heel wound for which she was seen at the wound center in the past, history of GI bleed, HAD DEBRIDEMENT OF LEFT HEEL IN WOUND CENTER, USING WHEELCHAIR History of Any Multi-Drug Resistant Organisms: None Reported Past Surgical History: Cholecystectomy, Joint Replacement Additional Past Surgical History / Comment(s): PARTIAL LEFT HIP REPLACEMENT, RECONSTRUCTION OF ESOPHAGUS, repair of aneurysm w/clip, has brain shunt-not sure if still functions, repair torn retina Past Anesthesia/Blood Transfusion Reactions: Previous Problems w/ Anesthesia Additional Past Anesthesia/Blood Transfusion Reaction / Comment(s): very slow to wake up-doesn't need much per spouse Past Psychological History: Anxiety Additional Psychological History / Comment(s): SPOUSE STATES ESPECIALLY WHEN HE DOES NOT SEE HER Smoking Status: Never smoker Past Alcohol Use History: Rare Additional Past Alcohol Use History / Comment(s): smoked occasional cigars 30 yrs. ago, AND CHEWED TOBACCO, Past Drug Use History: None Reported - Past Family History Mother Family Medical History: Unable to Obtain Medications and Allergies Home Medications Medication Instructions Recorded Confirmed Type Tamsulosin HCl [Flomax] 0.4 mg PO DAILY 05/26/17 11/10/19 History Aspirin [Adult Low Dose Aspirin EC] 81 mg PO DAILY 09/29/17 11/10/19 History Cyanocobalamin (Vitamin B-12) 1,000 mcg PO DAILY 09/29/17 11/10/19 History [Vitamin B-12] Magnesium 250 mg PO DAILY 10/18/19 11/10/19 History Pantoprazole Sodium [Protonix] 40 mg PO DAILY 10/18/19 11/10/19 History Benzonatate [Tessalon Perles] 100 mg PO TID PRN #20 capsule 11/08/19 11/10/19 Rx Multivitamins, Thera [Multivitamin 1 tab PO DAILY 11/08/19 11/10/19 History (formulary)] Allergies Allergy/AdvReac Type Severity Reaction Status Date / Time No Known Allergies Allergy Verified 11/10/19 08:03 Physical Exam Vitals: Vital Signs Temp Pulse Pulse Pulse Resp BP Pulse Ox 11/11/19 08:15 98.3 F 22 102/74 93 L 11/11/19 02:00 98.5 F 103 H 23 121/78 94 L 11/10/19 20:42 100 11/10/19 20:29 98 95 11/10/19 19:05 98.5 F 106 H 20 129/79 94 L 11/10/19 16:38 115 H 11/10/19 16:27 115 H 11/10/19 14:58 98.8 F 116 H 21 129/84 95 Intake and Output 11/10/19 11/11/19 11/11/19 22:59 06:59 14:59 Intake Total 325 0 7.959 Balance 325 0 7.959 Intake: Intake, IV Titration 325 7.959 Amount Diltiazem 125 mg In 7.959 Sodium Chloride 0.9% 100 ml @ 5 MG/HR 5 mls/hr IV .Q24H [facility] Rx#:[id number] Piperacillin-Tazobactam 3 100 .375 gm In Sodium Chloride 0.9% 100 ml @ 25 mls/hr IVPB Q8HR [facility] Rx# :[id number] Sodium Chloride 0.9% 1, 225 000 ml @ 75 mls/hr IV . [id number] [facility] Rx#:[id number] Oral 0 Other: Voiding Method Urinal Urinal # Voids 4 # Emeses 5 The patient appeared well nourished and normally developed. The patient is in mild degree of respiratory distress. He is currently on telemetry the Bactrim by nasal cannula. He is tachypneic. Is difficult to communicate with and the information that he provides is unreliable. Vital signs as documented. Head exam is unremarkable. No scleral icterus or corneal arcus noted. Neck is without jugular venous distension, thyromegaly, or carotid bruits. Carotid upstrokes are brisk bilaterally. Lungs are clear to auscultation and percussion. The breath sounds are diminished in lung bases bilaterally. Few scattered rhonchi can be appreciated. Cardiac exam reveals the PMI to be normally sized and situated. The patient is quite tachycardic and he has an irregular S1-S2 consistent with atrial fibrillation with rapid ventricular response. No murmurs, rubs or gallops. Abdominal exam reveals normal bowel sounds, no masses, no organomegaly and no aortic enlargement. Extremities are nonedematous and both femoral and pedal pulses are normal. Examination of the skin revealed no evidence of significant rashes, suspicious appearing nevi or other concerning lesions. Neurologically the patient is awake and alert and there is no focal neurological deficit at least on a pulmonary examination. There may be some micheal-neglect related to previous CVA. Results - Laboratory Findings CBC and BMP: 11/11/19 09:24 11/11/19 09:24 ABG ABG pH 7.48 (7.35-7.45) H 11/10/19 01:03 ABG pCO2 34 mmHg (35-45) L 11/10/19 01:03 ABG pO2 102 mmHg (83-108) 11/10/19 01:03 ABG O2 Saturation 97.7 % (94-97) H 11/10/19 01:03 PT/INR, D-dimer PT 12.6 sec (9.0-12.0) H 11/11/19 09:24 INR 1.3 (<1.2) H 11/11/19 09:24 D-Dimer 3.37 mg/L FEU (<0.60) H 11/11/19 09:24 Abnormal lab findings: Abnormal Labs 11/09/19 11/10/19 11/10/19 23:41 00:29 00:51 WBC 12.9 H Neutrophils # 11.8 H Lymphocytes # 0.5 L PT 12.3 H INR 1.2 H D-Dimer ABG pH ABG pCO2 ABG Total CO2 ABG O2 Saturation Sodium Potassium Chloride Creatinine Glucose POC Glucose (mg/dL) 144 H Calcium Creatine Kinase Total Protein Albumin 11/10/19 11/10/19 11/11/19 01:03 01:09 06:34 WBC Neutrophils # 8.8 H Lymphocytes # 0.5 L PT INR D-Dimer ABG pH 7.48 H ABG pCO2 34 L ABG Total CO2 26 H ABG O2 Saturation 97.7 H Sodium 134 L Potassium Chloride 96 L Creatinine 0.58 L Glucose 147 H POC Glucose (mg/dL) Calcium Creatine Kinase 24 L Total Protein Albumin 11/11/19 11/11/19 11/11/19 06:34 08:44 08:58 WBC Neutrophils # Lymphocytes # PT INR D-Dimer ABG pH ABG pCO2 ABG Total CO2 ABG O2 Saturation Sodium Potassium Chloride Creatinine 0.51 L Glucose 112 H POC Glucose (mg/dL) 114 H 114 H Calcium Creatine Kinase Total Protein Albumin 11/11/19 11/11/19 11/11/19 09:24 09:24 09:24 WBC Neutrophils # 8.1 H Lymphocytes # 0.4 L PT 12.6 H INR 1.3 H D-Dimer 3.37 H ABG pH ABG pCO2 ABG Total CO2 ABG O2 Saturation Sodium Potassium 3.3 L Chloride Creatinine 0.53 L Glucose 118 H POC Glucose (mg/dL) Calcium 8.2 L Creatine Kinase Total Protein 5.6 L Albumin 2.8 L - Diagnostic Findings Chest x-ray: image reviewed Assessment and Plan Plan: 1 acute hypoxic respiratory failure possibly secondary to recurrent pneumonia. Chest x-ray shows bilateral lower lobe pulmonary infiltrates more so on the right and the patient has had chronic aspiration and chronic recurrent episodes have been documented. I think the patient could've had another episode this morning. He is on IV Zosyn. There atrial fibrillation with rapid response is probably secondary. No overt signs of any heart failure at this point in time. 2 atrial fibrillation with rapid ventricular response currently on Cardizem drip at 10 mg an hour 3 history of esophageal cancer with esophagectomy gastric pull. The patient has chronic dysphagia and acid reflux which could predispose him essentially to have aspirations. The patient has undergone surgery, as esophagectomy with gastric pull followed by chemoradiation therapy back in . 4 history of SLOTS MANAGER aneurysm rupture post clipping with secondary CVA, residual memory deficits in terms of short and long-term memory and having neglect. He also has some issues with balance 5 previous history of GI bleed, none for now 6 history of obstructive sleep apnea not utilizing any form of CPAP for now 7 paroxysmal atrial fibrillation current rhythm is sinus 8 History of left heel wound which is been essentially improving and the patient wears special medical issues in that regard and he uses a wheelchair/cane 9 dysphagia with a component of gastroparesis and the patient is being considered for a J-tube insertion 10 BPH 11 history of seizures secondary to previous CVA, currently inactive in stable 12 gastroparesis and the patient is being considered for a J-tube insertion Plan Continue IV Zosyn IV Cardizem for heart rate control IV heparin and digoxin was also added by cardiology to control the heart rate and may consider amiodarone if continues to be in rapid ventricular response Give the patient dose of Lasix 40 mg IV push and IV fluids to KVO echocardiogram in the morning Aspiration precautions surgery consultation for J-tube insertion
[2019-11-11] MEDS ORDERED: Potassium Replacement Protocol 1 EACH MISC MISCELLANE PRN ×2 (11:00→11:13)
[2019-11-11] MEDS ORDERED: Magnesium Replacement Protocol 1 EACH MISC MISCELLANE PRN (11:13)
[2019-11-11] MEDS: POTASSIUM CHLORIDE 20 MEQ in WATER FOR INJECTION 1 100ML.BAG IVPB SCH ×4 (11:34→20:30)
[2019-11-11] MEDS ORDERED: AMIODARONE 360 MG in DEXTROSE 5% IN WATER 200 ML IV ONE ×2 (12:14)
[2019-11-11] MEDS ORDERED: DEXTROSE 5% IN WATER 100 ML with AMIODARONE 150 MG IV ONE (12:14)
--- NOTE | 2019-11-11 13:36 | PN ---
PROGRESS NOTE DATE OF SERVICE: 11/11/2019 Patient is a 64-year-old pleasant white male admitted to hospital with severe nausea, vomiting, passive regurgitation for the last few weeks duration as well as aspiration pneumonia. He denies any complaints this morning. As per the nursing staff, he still continues to have episodes of passive regurgitation with bilious emesis. He remains n.p.o. He was started on IV Reglan. The patient denies any symptoms. He reports no abdominal pain. PHYSICAL EXAMINATION: Appears comfortable, no apparent distress. Vital signs show a blood pressure of 123/86, pulse rate 92 per minute and afebrile HEENT examination unremarkable/ Conjunctivae pin, sclerae anicteric. Oral cavity no lesions. NECK: No JVD or lymph node enlargement. CHEST: Decreased breath sounds. HEART: Regular rate and rhythm. ABDOMEN: Soft. It was nontender, nondistended. Bowel sounds are positive. No organomegaly. EXTREMITIES: No pedal edema. SKIN: No rashes. NEURO: He is alert and oriented x3. LABS: No labs available from this morning. IMPRESSION: 1. Severe nausea, vomiting and passive regurgitation for the last few weeks duration status post EGD at [facility] on October 10 and the records were reviewed. Upper endoscopy revealed patent GE anastomosis at 20 cm from the incisors and the stomach appeared normal. There was no recurrence of malignancy. Duodenum appeared normal. There was moderate amount of liquid and solid food that was retained in the stomach noted. He did have a CT of the abdomen and pelvis done yesterday once again showed evidence of gastric pull through surgery. There was retained barium in the stomach which appears to be more dilated compared to the prior CAT scan done before and there was distended stomach noted. Evidence of left basilar atelectasis. 2. History of esophageal cancer status post radiation chemotherapy followed by surgery in 2018. 3. Aspiration pneumonia on broad-spectrum antibiotics. RECOMMENDATION: 1. Continue n.p.o. status. 2. Antiemetics as needed. 3. Protonix 40 mg twice daily. 4. Await surgical evaluation by Dr. Briones tomorrow for possible J-tube placement. Thank you for this consultation. MMODL / IJN: [id number] /
--- NOTE | 2019-11-11 13:47 | ECHOF ---
Referral Reason:afib rvr MEASUREMENTS -------- HEIGHT: 177.8 cm WEIGHT: 65.8 kg BP: 97/84 RVIDd: 2.1 cm (< 3.3) IVSd: 0.9 cm (0.6 - 1.1) LVIDd: 2.1 cm (3.9 - 5.3) LVPWd: 1.0 cm (0.6 - 1.1) IVSs: 1.4 cm LVIDs: 1.3 cm LVPWs: 1.4 cm LA Diam: 2.0 cm (2.7 - 3.8) Ao Diam: 3.5 cm (2.0 - 3.7) AV Cusp: 1.7 cm (1.5 - 2.6) MV EXCURSION: 23.991 mm (> 18.000) MV EF SLOPE: 298 mm/s (70 - 150) EPSS: 0.8 cm RAP: 5.00 mmHg RVSP: 28.15 mmHg FINDINGS -------- This was a technically adequate study. The left ventricular size is normal. Left ventricular wall thickness is normal. Overall left vent ricular systolic function is normal with, an EF between 55 - 60 %. The right ventricle is normal in size. The left atrial size is normal. The right atrium is normal in size. There is mild aortic valve sclerosis. There is mild aortic regurgitation. Mild mitral annular calcification present. Mild tricuspid regurgitation present. Right ventricular systolic pressure is normal at < 35 mmHg. The pulmonic valve was not well visualized. The aortic root size is normal. Normal inferior vena cava with normal inspiratory collapse consistent with estimated right atrial pre ssure of 5 mmHg. There is no pericardial effusion. CONCLUSIONS -------- 1. This was a technically adequate study. 2. The left ventricular size is normal. 3. Left ventricular wall thickness is normal. 4. Overall left ventricular systolic function is normal with, an EF between 55 - 60 %. 5. The right ventricle is normal in size. 6. The left atrial size is normal. 7. The right atrium is normal in size. 8. There is mild aortic valve sclerosis. 9. There is mild aortic regurgitation. 10. Mild mitral annular calcification present. 11. Mild tricuspid regurgitation present. 12. Right ventricular systolic pressure is normal at < 35 mmHg. 13. The pulmonic valve was not well visualized. 14. The aortic root size is normal. 15. Normal inferior vena cava with normal inspiratory collapse consistent with estimated right atrial pressure of 5 mmHg. 16. There is no pericardial effusion. LPN INSTRUCTOR: Arleth Barroso RDCS
--- NOTE | 2019-11-11 15:06 | PN ---
PROGRESS NOTE DATE OF SERVICE: 11/11/2019 This 64-year-old gentleman who was admitted with incessant vomiting, unable to keep anything down, patient had right lower pneumonia, possibly aspiration in nature, but today the patient took a turn for the worse. The patient had atrial fibrillation with fast ventricular rate with respiratory difficulties. The patient was given some Lasix. The patient was transferred to ICU. Patient was started on Cardizem drip and amiodarone. Patient also given digoxin 250 mcg 2 doses. Patient being closely monitored at this time. Gastroenterology has been consulted. PAST MEDICAL HISTORY: Reviewed. REVIEW OF SYSTEMS: Cardiovascular is as mentioned earlier. GI: As mentioned earlier. : No dysuria. NERVOUS SYSTEM: No numbness or weakness. CURRENT MEDICATIONS: Reviewed and include: DuoNeb q.i.d. and p.r.n., Xanax 0.5 t.i.d., amiodarone drip, Cardizem drip, heparin, Dilaudid, Reglan, replacement protocols, Zosyn IV, Flomax. PHYSICAL EXAMINATION: Patient is alert, oriented times Pulse is 124. Max is 199. Respiration 13. Temperature normal. Pulse ox 96% on room air. Blood pressure is 117/71. HEENT: Conjunctivae normal. NECK: No JVD. CARDIOVASCULAR: S1, S2 muffled. RESPIRATION: Breath sounds diminished in the bases. Bilateral scattered rhonchi and crackles. ABDOMEN: Soft, nontender. Legs are no edema. No swelling. Nervous system: No focal deficits. LABS: Labs are WBC 9.2, hemoglobin 14.6. INR 1.3. Sodium 140, potassium 3.3, albumin is 2.8. ASSESSMENT: 1. Incessant vomiting and unable to keep anything down, possibly gastroparesis acute exacerbation with possible acute gastritis. 2. Acute right lobe pneumonia, possibly aspiration pneumonia with acute hypoxic respiratory failure. 3. Atrial fibrillation with fast ventricular rate. 4. Hyponatremia. 5. Acute hypoxic respiratory failure. 6. History of atrial fibrillation. 7. History of pneumonia. 8. History of sleep apnea. 9. History of dysphagia. 10.Esophageal carcinoma, status post chemo radiation surgery. 11.History of esophageal stenosis. 12.Cerebral aneurysm rupture treatment. 13.History of seizure disorder. 14.History of cholecystectomy. 15.History of anxiety. 16.History of partial hip replacement. 17.FULL CODE. 18.Hypoalbuminemia with mild protein calorie malnutrition. 19.Hypokalemia. RECOMMENDATIONS AND DISCUSSION: In this 64-year-old gentleman who presented with multiple complex medical issues, we will monitor the patient closely, continue the current medications, symptomatic treatment. Otherwise, at this time, continue with Cardizem drip. Amiodarone, digoxin has been given. Closely follow. Bronchodilators, empiric antibiotics. Follow the cultures. Guarded prognosis because of multiple complex medical issues. Further recommendations to follow. MMODL / IJN: [id number] / MTDD
[2019-11-11] MEDS: SODIUM CHLORIDE 0.9% 1,000 ML IV SCH (16:26)
[2019-11-11 17:04] LABS: Potassium 3.2 mmol/L (3.5-5.1)
[2019-11-11] MEDS: METOCLOPRAMIDE 5 MG/ML 2 ML VIAL IVP SCH (17:52)
[2019-11-11] MEDS: HEPARIN SODIUM,PORCINE 5,000 UNIT/ML 1 ML VIAL IV PRN (17:52)
[2019-11-11] MEDS: AMIODARONE 300 MG in DEXTROSE 5% IN WATER 250 ML IV SCH ×2 (18:54)
[2019-11-11 23:58] LABS: Glucose,Whole Blood 110 mg/dL (75-99)
[2019-11-12] MEDS: METOCLOPRAMIDE 5 MG/ML 2 ML VIAL IVP SCH ×5 (00:30→23:13)
[2019-11-12] MEDS: PIPERACILLIN-TAZOBACTAM 3.375 GM in SODIUM CHLORIDE 0.9% 100 ML IVPB SCH ×4 (00:31→23:13)
[2019-11-12 04:38] LABS: Basophils % (A) 0 %; Eosinophils # (A) 0.2 k/uL (0-0.7); Eosinophils % (A) 2 %; HCT 40.2 % (39.0-53.0); HGB 12.9 gm/dL (13.0-17.5); Hypochromasia Slight; Lymphocytes # (A) 0.6 k/uL (1.0-4.8); Lymphocytes % (A) 6 %; MCH 29.6 pg (25.0-35.0); MCHC 32.2 g/dL (31.0-37.0); MCV 91.9 fL (80.0-100.0); Mean Platelet Volume 7.4; Monocytes # (A) 0.6 k/uL (0-1.0); Monocytes % (A) 6 %; Neutrophils # (A) 8.5 k/uL (1.3-7.7); Neutrophils % (A) 85 %; Platelet Count 252 k/uL (150-450); RBC 4.37 m/uL (4.30-5.90); RDW 13.1 % (11.5-15.5)
[2019-11-12 04:53] LABS: African American GFR (CKD) >90 (>60 ml/min/1.73 sqM); Anion Gap 6 mmol/L; Blood Urea Nitrogen 13 mg/dL (9-20); Calcium 7.8 mg/dL (8.4-10.2); Carbon Dioxide 30 mmol/L (22-30); Chloride 101 mmol/L (98-107); Glucose 126 mg/dL (74-99); Magnesium 2.2 mg/dL (1.6-2.3); Non-African American GFR(CKD) >90 (>60 ml/min/1.73 sqM); Potassium 3.2 mmol/L (3.5-5.1); Sodium 137 mmol/L (137-145)
[2019-11-12] MEDS: HEPARIN SODIUM,PORCINE 5,000 UNIT/ML 1 ML VIAL IV PRN (04:59)
[2019-11-12] MEDS: POTASSIUM CHLORIDE 20 MEQ in WATER FOR INJECTION 1 100ML.BAG IVPB SCH ×2 (05:00→06:12)
[2019-11-12] MEDS: AMIODARONE 300 MG in DEXTROSE 5% IN WATER 250 ML IV SCH ×4 (05:27→14:59)
[2019-11-12] MEDS: IPRATROPIUM-ALBUTEROL 3 ML NEB INHALATION SCH ×5 (07:26→20:25)
[2019-11-12] MEDS: HEPARIN SOD,PORK IN 0.45% NACL 25,000 UNIT in 0.45% NACL 1 250ML.BAG IV SCH (08:53)
[2019-11-12] MEDS ORDERED: ALTEPLASE 2 MG VIAL (CATHFLO) IV STA (08:58)
[2019-11-12] MEDS ORDERED: SODIUM CHLORIDE 0.9% 500 ML 1,000 ML IV ONE (09:12)
[2019-11-12] MEDS: TAMSULOSIN 0.4 MG CAP.ER.24H PO SCH (09:24)
[2019-11-12] MEDS: PANTOPRAZOLE 40 MG/10 ML VIAL IVP SCH ×2 (09:25→20:33)
[2019-11-12] MEDS: METOPROLOL TARTRATE 5 MG/5 ML VIAL IVP SCH ×2 (09:25→20:33)
[2019-11-12] MEDS: SODIUM CHLORIDE 0.9% 1,000 ML IV SCH (09:26)
--- NOTE | 2019-11-12 11:37 | PN ---
PROGRESS NOTE 64-year-old gentleman with history of esophageal cancer that is admitted to hospital with atrial fibrillation with rapid ventricular rate. I started him on IV amiodarone, digoxin and Cardizem. He converted to sinus rhythm. He is currently on IV heparin and IV amiodarone at maintenance dose. He has issues with swallowing and we are not able to give him any oral medications. On exam, heart rate is 93 beats per minute. Blood pressure is 118/73, respiratory rate is 18. Chest exam reveals good air entry bilaterally. Heart exam reveals first and second heart sounds. No gallop. Has no murmur. Abdomen soft. Exam of extremities did not reveal any edema. Peripheral pulses are felt. Labs show that the hemoglobin is 12.9, platelet count is 250. Creatinine is 0.5. ASSESSMENT: Paroxysmal atrial fibrillation. PLAN: He will continue intravenous amiodarone, start him on IV Lopressor. The patient had an echocardiogram that showed normal LV systolic function. MMODL / IJN: [id number] /
[2019-11-12 11:58] LABS: Glucose,Whole Blood 114 mg/dL (75-99)
--- NOTE | 2019-11-12 12:41 | P.PN ---
Subjective Progress Note Date: 11/12/19 Principal diagnosis: N,V, aspiration pneumonia In follow-up today, patient is pleasant, as always. He denies any pain, difficulty breathing, current nausea, no recent vomiting, chest pain, palpitations, abdominal pain or cramping. Objective - Vital Signs Vital signs: Vital Signs Temp 97.6 F 11/12/19 12:00 Pulse 93 11/12/19 12:00 Resp 39 H 11/12/19 12:00 BP 104/70 11/12/19 12:00 Pulse Ox 95 11/12/19 12:00 Intake & Output 11/11/19 11/12/19 11/12/19 18:59 06:59 18:59 Intake Total 890.585 495.826 7469.469 Output Total 1495 465 148 Balance -604.415 292.868 937.469 Weight 65.4 kg Intake: IV 760 400 540 Piperacillin-Tazobactam 3 100 100 .375 gm In Sodium Chloride 0.9% 100 ml @ 25 mls/hr IVPB Q8HR [facility] Rx# :[id number] Potassium Chloride 10 meq 100 In Water For Injection 1 100ml.bag @ 100 mls/hr IVPB ONCE [facility] Rx#: [id number] Potassium Chloride 20 meq 300 200 100 In Water For Injection 1 100ml.bag @ 50 mls/hr IVPB Q2H [facility] Rx#: [id number] Sodium Chloride 0.9% 1, 260 200 340 000 ml @ 10 mls/hr IV . Q24H [facility] Rx#:[id number] Intake, IV Titration 130.585 357.868 545.469 Amount Amiodarone 300 mg In 250 Dextrose 5% in Water 250 ml @ 0.5 MG/MIN 25 mls/hr IV .Q10H [facility] Rx#: [id number] Diltiazem 125 mg In 63.626 Sodium Chloride 0.9% 100 ml @ 5 MG/HR 5 mls/hr IV .Q24H [facility] Rx#:[id number] Heparin Sod,Pork in 0.45% 66.959 107.868 45.469 NaCl 25,000 unit In 0.45 % NaCl 1 250ml.bag @ 12 UNITS/KG/HR 7.893 mls/hr IV .Q24H [facility] Rx#: [id number] Sodium Chloride 0.9% 500 500 ml 1,000 ml @ 999 mls/hr IV .Q1H1M [facility] Rx#: [id number] Output: Urine 1495 465 148 Other: Voiding Method Indwelling Catheter Indwelling Catheter Indwelling Catheter # Voids 0 - Constitutional General appearance: Present: cooperative, no acute distress, thin - EENT EENT Comment(s): Dry mucous membranes Eyes: Present: anicteric sclerae, EOMI ENT: Present: hearing grossly normal - Respiratory Respiratory: bilateral: CTA - Cardiovascular Rhythm: regular Heart sounds: normal: S1, S2 Abnormal Heart Sounds: Present: systolic murmur (Soft) - Peripheral edema leg Peripheral Edema: bilateral: None - Gastrointestinal General gastrointestinal: Present: normal bowel sounds, soft - Integumentary Integumentary: Present: pale - Neurologic Neurologic: Present: CNII-XII intact - Musculoskeletal Musculoskeletal: Present: generalized weakness - Psychiatric Psychiatric: Present: A&O x's 3, appropriate affect, intact judgment & insight - Labs CBC & Chem 7: 11/12/19 04:26 11/12/19 10:31 Labs: Abnormal Lab Results - Last 24 Hours (Table) 11/11/19 11/11/19 11/11/19 Range/Units 06:34 15:49 16:35 Hgb (13.0-17.5) gm/dL Neutrophils # (1.3-7.7) k/uL Lymphocytes # (1.0-4.8) k/uL APTT 31.0 H (22.0-30.0) sec Sodium 136 L (137-145) mmol/L Potassium 3.2 L (3.5-5.1) mmol/L Creatinine (0.66-1.25) mg/dL Glucose (74-99) mg/dL POC Glucose (mg/dL) (75-99) mg/dL Calcium (8.4-10.2) mg/dL Procalcitonin 0.15 H (0.02-0.09) ng/mL 11/11/19 11/12/19 11/12/19 Range/Units 23:56 04:26 04:26 Hgb 12.9 L (13.0-17.5) gm/dL Neutrophils # 8.5 H (1.3-7.7) k/uL Lymphocytes # 0.6 L (1.0-4.8) k/uL APTT (22.0-30.0) sec Sodium (137-145) mmol/L Potassium 3.2 L (3.5-5.1) mmol/L Creatinine 0.52 L (0.66-1.25) mg/dL Glucose 126 H (74-99) mg/dL POC Glucose (mg/dL) 110 H (75-99) mg/dL Calcium 7.8 L (8.4-10.2) mg/dL Procalcitonin (0.02-0.09) ng/mL 11/12/19 11/12/19 11/12/19 Range/Units 04:26 10:31 11:56 Hgb (13.0-17.5) gm/dL Neutrophils # (1.3-7.7) k/uL Lymphocytes # (1.0-4.8) k/uL APTT 36.8 H 41.7 H (22.0-30.0) sec Sodium (137-145) mmol/L Potassium (3.5-5.1) mmol/L Creatinine (0.66-1.25) mg/dL Glucose (74-99) mg/dL POC Glucose (mg/dL) 114 H (75-99) mg/dL Calcium (8.4-10.2) mg/dL Procalcitonin (0.02-0.09) ng/mL Assessment and Plan (1) Aspiration pneumonia Narrative/Plan: Patient has a history of the same. Surgery is going to evaluate the patient, possibly due dilation. Patient is had dilation before and that helped his symptoms. Pending procedure. If unable to perform or, if dilation done and there is no improvement in patient's symptoms, consideration for a J-tube has been discussed. Current Visit: Yes Status: Acute Priority: High Code(s): J69.0 - PNEUMONITIS DUE TO INHALATION OF FOOD AND VOMIT SNOMED Code(s): 003974971 (2) Esophageal cancer Narrative/Plan: Patient has been treated for the same. EGD 10/02 was no evidence of disease. CT of the abdomen and pelvis done this admission, no adenopathy or evidence of metastasis. No evidence of metastasis on CT of the brain. Patient will continue on follow-up for treated malignancy. Current Visit: No Status: Chronic Priority: Medium Code(s): C15.9 - MALIGNANT NEOPLASM OF ESOPHAGUS, UNSPECIFIED SNOMED Code(s): 271335307
[2019-11-12] MEDS: DILTIAZEM 125 MG in SODIUM CHLORIDE 0.9% 100 ML IV SCH (13:27)
[2019-11-12] MEDS ORDERED: METOCLOPRAMIDE 5 MG/ML 2 ML VIAL IVP STA (13:57)
--- NOTE | 2019-11-12 14:09 | P.PN ---
Subjective Progress Note Date: 11/12/19 Principal diagnosis: Acute hypoxic respiratory failure secondary to recurrent aspiration pneumonia. A 64-year-old male patient who got transferred to the intensive care unit this morning because of atrial fibrillation with rapid ventricular response. The patient is known to me. I seen him on a previous consultation in early October for aspiration pneumonia. I think he aspirated another time this morning and he subsequently went into A. fib RVR. He is known to have chronic atrial fibrillation. His heart rate was in the 200s range and the patient was having significant respiratory distress and for that reason the patient got transferred to the intensive care unit. Currently is on 10 L of oxygen by nasal cannula. He is still tachypneic. His heart rate is improved while being on a Cardizem drip at 10 mg an hour and his heart rate currently is running at around 160, irregular consistent with atrial fibrillation. Denies having any chest pain. Note that he has a previous history of CVA and he is unable to volunteer appropriate and reliable history. He does have aspiration due to previous history of esophageal cancer that was resected and the patient has had es ophagectomy with gastric pull and he has gastroparesis and is being considered for a J-tube insertion. I did see him for a consultation approximately 3 weeks ago for an aspiration pneumonia and back then the patient was given IV Zosyn and he was successfully treated and he was discharged. No history of any decompensated heart failure. No leg edema. Reevaluated today on 11/12/19, patient remains in the ICU, presently on high flow nasal cannula at 8 L/m. His IV fluid is at KVO, patient is on amiodarone at 0.5 mg per hour. He is in sinus rhythm, and he is hemodynamically stable. Remains on Zosyn, and according to the history given to me by the patient and by his , patient is likely experiencing intermittent episodes of aspiration, in the past patient underwent EGD and elevation of his esophagus, and according to the that helped significantly. Hence I will recommend reevaluation by general surgery for possible EGD and elevation of his esophagus. Patient had previous esophageal cancer diagnosed in 2018, and he had surgery done at [facility] by Dr. Sanches. Chest x-ray continues to show bilateral infiltrates consistent with aspiration. Labs including CBC and basic metabolic profile are unremarkable. Patient is in no distress, hence I plan to transfer the patient out of the ICU to a monitor bed on selective today Objective - Vital Signs Vital signs: Vital Signs Temp 97.6 F 11/12/19 12:00 Pulse 90 11/12/19 13:00 Resp 26 H 11/12/19 13:00 BP 104/83 11/12/19 13:00 Pulse Ox 96 11/12/19 13:00 Intake & Output 11/11/19 11/12/19 11/12/19 18:59 06:59 18:59 Intake Total 890.585 124.519 6266.469 Output Total 1495 465 153 Balance -604.415 090.850 6749.469 Weight 65.4 kg Intake: IV 760 400 615 Piperacillin-Tazobactam 3 100 100 .375 gm In Sodium Chloride 0.9% 100 ml @ 25 mls/hr IVPB Q8HR [facility] Rx# :[id number] Potassium Chloride 10 meq 100 In Water For Injection 1 100ml.bag @ 100 mls/hr IVPB ONCE [facility] Rx#: [id number] Potassium Chloride 20 meq 300 200 100 In Water For Injection 1 100ml.bag @ 50 mls/hr IVPB Q2H [facility] Rx#: [id number] Sodium Chloride 0.9% 1, 260 200 415 000 ml @ 10 mls/hr IV . Q24H [facility] Rx#:[id number] Intake, IV Titration 130.585 357.868 545.469 Amount Amiodarone 300 mg In 250 Dextrose 5% in Water 250 ml @ 0.5 MG/MIN 25 mls/hr IV .Q10H [facility] Rx#: [id number] Diltiazem 125 mg In 63.626 Sodium Chloride 0.9% 100 ml @ 5 MG/HR 5 mls/hr IV .Q24H [facility] Rx#:[id number] Heparin Sod,Pork in 0.45% 66.959 107.868 45.469 NaCl 25,000 unit In 0.45 % NaCl 1 250ml.bag @ 12 UNITS/KG/HR 7.893 mls/hr IV .Q24H [facility] Rx#: [id number] Sodium Chloride 0.9% 500 500 ml 1,000 ml @ 999 mls/hr IV .Q1H1M [facility] Rx#: [id number] Output: Urine 1495 465 153 Other: Voiding Method Indwelling Catheter Indwelling Catheter Indwelling Catheter # Voids 0 - Exam Physical Exam Gen. physical exam:Revealed a 64-year-old white male, on high flow nasal cannula, in no distress. HEENT: [No neck masses.] [No thyromegaly.] [No JVD.] Chest: [Crackles and rhonchi noted bilaterally. Symmetrical chest expansion. Cardiac Exam: [Normal S1 and S2, no S3 gallop, no murmur.] Abdomen: [Soft, nontender, no megaly, no rebound, no guarding, normal bowel sounds.] Extremities: [No clubbing, no edema, no cyanosis.] Neurological Exam: [Patient is awake, alert, however the patient has some high meaning lack related to previous CVA. Psychiatric: Normal mood affect and the relatively normal mental status examination, however he has poor memory. Skin: No rashes. - Labs CBC & Chem 7: 11/12/19 04:26 11/12/19 10:31 Labs: Abnormal Lab Results - Last 24 Hours (Table) 11/11/19 11/11/19 11/11/19 Range/Units 06:34 15:49 16:35 Hgb (13.0-17.5) gm/dL Neutrophils # (1.3-7.7) k/uL Lymphocytes # (1.0-4.8) k/uL APTT 31.0 H (22.0-30.0) sec Sodium 136 L (137-145) mmol/L Potassium 3.2 L (3.5-5.1) mmol/L Creatinine (0.66-1.25) mg/dL Glucose (74-99) mg/dL POC Glucose (mg/dL) (75-99) mg/dL Calcium (8.4-10.2) mg/dL Procalcitonin 0.15 H (0.02-0.09) ng/mL 11/11/19 11/12/19 11/12/19 Range/Units 23:56 04:26 04:26 Hgb 12.9 L (13.0-17.5) gm/dL Neutrophils # 8.5 H (1.3-7.7) k/uL Lymphocytes # 0.6 L (1.0-4.8) k/uL APTT (22.0-30.0) sec Sodium (137-145) mmol/L Potassium 3.2 L (3.5-5.1) mmol/L Creatinine 0.52 L (0.66-1.25) mg/dL Glucose 126 H (74-99) mg/dL POC Glucose (mg/dL) 110 H (75-99) mg/dL Calcium 7.8 L (8.4-10.2) mg/dL Procalcitonin (0.02-0.09) ng/mL 11/12/19 11/12/19 11/12/19 Range/Units 04:26 10:31 11:56 Hgb (13.0-17.5) gm/dL Neutrophils # (1.3-7.7) k/uL Lymphocytes # (1.0-4.8) k/uL APTT 36.8 H 41.7 H (22.0-30.0) sec Sodium (137-145) mmol/L Potassium (3.5-5.1) mmol/L Creatinine (0.66-1.25) mg/dL Glucose (74-99) mg/dL POC Glucose (mg/dL) 114 H (75-99) mg/dL Calcium (8.4-10.2) mg/dL Procalcitonin (0.02-0.09) ng/mL Assessment and Plan Assessment: Impression: Acute hypoxic respiratory failure secondary to recurrent aspiration pneumonia. History of esophageal stricture requiring dilatation by Dr. Morales. History of esophageal cancer and previous esophagectomy and gastric pull. History of [employer] aneurysm rupture requiring clipping. Patient has residual memory deficit. History of GI bleeding. History of obstructive sleep apnea. Not utilizing CPAP. Paroxysmal atrial fibrillation. Presently in sinus. History of left heel wound History of chronic dysphagia and gastroparesis. Being considered for J-tube insertion. History of esophageal dilatation. History of seizure disorder. Recommendation: Continue antibiotics and/Zosyn. Continue IV heparin. Continue antiarrhythmic medications for his atrial fibrillation/RVR. Continue Lasix and keep IV fluid at KVO. Continue aspiration precautions. General surgery to reevaluate for possible J-tube insertion or possible EGD and esophageal down the patient. Discussed his condition with him and his , we'll continue to follow Time with Patient: Less than 30
--- NOTE | 2019-11-12 16:24 | FL ---
EXAMINATION TYPE: FL barium swallow DATE OF EXAM: 11/12/2019 CLINICAL INDICATION: 63-year-old male aspiration pneumonia, history of esophageal cancer with esophag ectomy and gastric pull-through. COMPARISON: Correlation CT 11/10/2019 Total Fluoroscopy Time: 4 minutes 29 seconds Total images: 47 FINDINGS: The patient is bedbound. The table was tilted up 40 degrees and the patient drank intermittently from a straw. A total of 4 ounces was ingested. By the end of the exam, contrast remains pole within port ions of the stomach. No contrast has passed below the diaphragm. On the drinking images, there is some limitation due to patient's chin overlying the thoracic inlet. No obvious [place] stricture is identified at the upper chest at the gastroesophageal anastomosis. Some irregularity here can be evaluated by direct visualization. Contrast pools to the left base which corresponds to the level of the mid to distal gastric body. Patient was turned towards the right to help the contrast moved to the distal stomach. This shows a f ocal island of contrast within the distal body that could represent a small ulcer. Again, by the end of the exam, contrast remains within the stomach, located above the diaphragm. IMPRESSION: 1. Status post esophagectomy with gastric pull-through procedure. 2. No obstruction to the passage of contrast in the upper chest across the gastroesophageal anastomos is. There is some mucosal irregularity here that could relate to postsurgical change. This area shoul d be assessed with direct inspection. 3. Focal collection of contrast in the distal gastric body could represent a small ulcer. Again, asse ss with direct visualization. 4. By the end of the exam, contrast remains within the stomach, located above the diaphragm. There is no passage below the diaphragm. 5. The exam was terminated at this point. A separate abdominal radiograph in one hour will reassess t he extent of contrast passage.
[2019-11-12 17:22] LABS: Glucose,Whole Blood 114 mg/dL (75-99)
--- NOTE | 2019-11-12 17:40 | XR ---
EXAMINATION TYPE: XR KUB portable DATE OF EXAM: 11/12/2019 COMPARISON: 11/10/2019 HISTORY: Vomiting TECHNIQUE: Supine 3 views FINDINGS: There is no sign of intestinal obstruction or pneumoperitoneum. There is some barium in the stomach. There is hiatal hernia or markedly elevated left diaphragm. There is blunting left and rig ht costophrenic angle. There are chest leads. There is ventriculoperitoneal shunt catheter noted. IMPRESSION: No free air. No bowel obstruction. Pleural effusions. No change compared to recent exam.
--- NOTE | 2019-11-12 19:32 | P.PN ---
Progress Note - Text Progress Note Date: 11/12/19 Presenting complaint: Short of breath, vomiting History of presenting complaint: This is a pleasant 64-year-old patient of Dr. Deluna. Chronic stable medical conditions include atrial fibrillation, sleep apnea,(s)-doesn't use CPAP. Also the right kidney mass that is being monitored. Patient has a history of esophageal cancer with partial esophagectomy. Patient did receive both chemotherapy and finished treatment that was through 2017 with initial diagnoses and treatment completion in 2019. Patient been told is cancer free. Did follow with Dr. Wilder. Admitted early part of this month with-aspiration pneumonia., hypoxic respiratory failure. Recent endoscopy at [facility] by Dr. Jed Claros had shown a patent GEN anastomosis. No a large amount of retained food noted in the stomach suggestive of gastroparesis. Patient now presents with episodes of vomiting and aspiration pneumonia. Leading to acute hypoxic respiratory failure. Put on IV Zosyn. Also had an arrhythmia for which she was put on amiodarone and IV Cardizem. Today-sitting up in bed, rather tired. On IV heparin and amiodarone. Remains nothing by mouth. Was due to go down for a barium swallow study this afternoon. Review of systems: Was done for constitutional, cardiovascular, GI, pulmonary. relevant finding as above Active Medications Albuterol/Ipratropium (Duoneb 0.5 Mg-3 Mg/3 Ml Soln) 3 ml INHALATION RT-QID [facility] Last Admin: 11/12/19 16:18 Dose: 3 ml Documented by: Albuterol/Ipratropium (Duoneb 0.5 Mg-3 Mg/3 Ml Soln) 3 ml INHALATION RT-QID PRN PRN Reason: Shortness Of Breath Or Wheezing Last Admin: 11/12/19 02:54 Dose: 3 ml Documented by: Alprazolam (Xanax) 0.25 mg PO TID PRN PRN Reason: Anxiety Heparin Sodium (Porcine) (Heparin) 0 unit IV PER PROTOCOL PRN; Protocol PRN Reason: Low PTT Last Admin: 11/12/19 04:59 Dose: 1,625 unit Documented by: Hydromorphone HCl (Dilaudid) 0.5 mg IVP Q4HR PRN PRN Reason: Severe Pain Piperacillin Sod/Tazobactam (Sod 3.375 gm/ Sodium Chloride) 100 mls @ 25 mls/hr IVPB Q8HR [facility] Last Admin: 11/12/19 14:58 Dose: 25 mls/hr Documented by: Heparin Sodium/Sodium Chloride (25,000 unit/ Sodium Chloride) 250 mls @ 7.893 mls/hr IV .Q24H [facility]; Protocol Last Titration: 11/12/19 14:09 Dose: 19 units/kg/hr, 12.496 mls/hr Documented by: Diltiazem HCl 125 mg/ Sodium (Chloride) 125 mls @ 5 mls/hr IV .Q24H [facility]; Protocol Last Admin: 11/12/19 13:27 Dose: Not Given Documented by: Amiodarone HCl 300 mg/ (Dextrose/Water) 250 mls @ 25 mls/hr IV .Q10H [facility]; Protocol Last Admin: 11/12/19 14:59 Dose: 0.5 mg/min, 25 mls/hr Documented by: Sodium Chloride (Saline 0.9%) 1,000 mls @ 75 mls/hr IV .[id number] [facility] Last Admin: 11/12/19 09:26 Dose: 75 mls/hr Documented by: Metoclopramide HCl (Reglan) 10 mg IVP Q6HR [facility] Last Admin: 11/12/19 17:40 Dose: 10 mg Documented by: Metoprolol Tartrate (Lopressor) 5 mg IVP Q12HR [facility] Last Admin: 11/12/19 09:25 Dose: 5 mg Documented by: Miscellaneous Information (Potassium Per Protocol) 1 each MISCELLANE DAILY PRN; Protocol PRN Reason: Per Protocol Miscellaneous Information (Magnesium Per Protocol) 1 each MISCELLANE DAILY PRN; Protocol PRN Reason: Per Protocol Miscellaneous Information (Potassium Per Protocol) 1 each MISCELLANE DAILY PRN; Protocol PRN Reason: Per Protocol Pantoprazole Sodium (Protonix) 40 mg IVP BID [facility] Last Admin: 11/12/19 09:25 Dose: 40 mg Documented by: Tamsulosin HCl (Flomax) 0.4 mg PO DAILY [facility] Last Admin: 11/12/19 09:24 Dose: Not Given Documented by: Physical examination: VITAL SIGNS: 37.6, 93, 39, 104/70, 95% on 8 L high flow oxygen GENERAL: Sitting up, awake, tired EYES: Pupils equal. Conjunctiva pale HEENT: External appearance of nose and ears normal, oral cavity-dry NECK: JVD not raised; masses not palpable. HEART: First and second heart sounds are normal; no edema. LUNGS:[ Respiratory rate increased; decreased breath sounds. ABDOMEN: Soft, nontender, liver spleen not palpable, no masses palpable. PSYCH: [Patient able answer simple questions . INVESTIGATIONS, reviewed in the clinical context: White count and hemoglobin 12.9 potassium 3. 2 repeat 3.7 creatinine 0.5 to Barium swallow-. Barium Does not seem to go past the stomach. Previous testing: COVID 19 PCR-not detected 2-D echocardiogram-EF 55-60% Computed tomography scan of the abdomen-suggestive of gastroparesis. Sigmoid diverticulosis. Pulmonary infiltrates. Assessment: -Probable aspiration pneumonia. POA -Acute hypoxic respiratory failure secondary to aspiration pneumonia POA -Likely severe gastroparesis as recent EGD and not shown any mechanical obstruction. Slow to respond -History of esophageal cancer with partial esophagectomy chemotherapy radiation treatment and gastric pull-through -Kidney mass being followed -Moderate dementia due to prior history of cerebral aneurysm bleed that was clipped. -GERD -BPH -Mild protein calorie malnutrition from decreased oral intake Plan: Continue with IV fluids and IV antibiotics. Patient may need a jejunostomy. We'll discuss with surgery and GI.
[2019-11-12] MEDS: POTASSIUM CHLORIDE 10 MEQ in WATER FOR INJECTION 1 100ML.BAG IVPB SCH ×2 (20:48→22:05)
--- NOTE | 2019-11-12 20:48 | P.GSCN ---
History of Present Illness Consult date: 11/12/19 History of present illness: CHIEF COMPLAINT: Jejunostomy feeding tube placement HISTORY OF PRESENT ILLNESS: The patient is a 64 year old male who presents with aspiration pneumonia at least third to fourth readmission in last 2 months. His history is significant for previous esophageal cancer treated at [facility] in [place] with robotic esophagectomy with gastric pull-through in 2017. Per patient's , last follow-up with surgeon was in 2018. He did have trouble with swallowing with pills and food 2 years ago where he had upper endoscopy with dilation of his cervical anastomosis. He was doing well until last 6 months when he had troubles with swallowing particularly with aspiration at night. He has developed multiple episodes of aspiration pneumonia requiring hospitalization. 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 His reports as of one month ago, he was treated at [facility] for which gastroenterology consultation was obtained. At that time, upper endoscopy was performed. On his current hospitalization, findings of retained food and dilated gastric stomach was found on computed tomography scan. Per recommendation of gastroenterology, a jejunostomy feeding tube is requested. PAST MEDICAL HISTORY: See list and reviewed. Pertinent for esophageal cancer 2017 PAST SURGICAL HISTORY: See list and reviewed. Pertinent for esophagectomy Leo 09/02/2016 and moderate to severe memory impairment. MEDICATIONS: See list and reviewed ALLERGIES: See list and reviewed SOCIAL HISTORY: See list and reviewed FAMILY HISTORY: See list and reviewed REVIEW OF ORGAN SYSTEMS: CONSTITUTIONAL: No fevers or chills. Has unintentional recent weight loss over 10 pounds in 6 months. EYES: Denies any trouble with vision. Wears glasses. HEENT: No difficulties with hearing. No nosebleeds. Has difficulty swallowing. RESPIRATORY: Has pneumonia. Has troubles with breathing or dyspnea on exerti on. Has chronic cough. Has obstructive sleep apnea CARDIOVASCULAR: Denies any chest pain, palpitations, or recent heart attacks. GASTROINTESTINAL: Denies fatty food intolerance. Denies change in bowel habits and gas bloat. Past history of gastrointestinal bleeding. GENITOURINARY: Denies any blood in urine. Has increased urinary frequency. NEUROLOGICAL: Denies any numbness or tingling along the distal extremities. Has memory per minute from cerebral aneurysm over 30 years ago. MUSCULOSKELETAL: Has back pain, stiffness or joint arthritis. SKIN: No current skin cancer. No rash. PSYCHIATRIC: Denies current depression or suicidal thoughts. ENDOCRINE: Denies current thyroid disorders. Denies any blood sugar glucose intolerance. HEME/LYMPHATIC: Denies any lumps and bumps around the neck. No recent deep venous thrombosis. ALLERGY/IMMUNOLOGY: No immunoglobulin therapy. No immune deficiencies. BREAST: Denies current breast lumps, pain or nipple discharge. PHYSICAL EXAM: VITALS: Reviewed CONSTITUTIONAL: Well developed and in no acute distress. EYES: Conjuctivae without sclera icterus. Pupils are equally round and reactive to light. Extraocular movements grossly intact. HEAD, EARS, NOSE, THROAT: Moist buccal mucosa. Head is atraumatic, normocephalic. Hears conversational speech. No nasal drainage. NECK: Supple. No JV distention. No thyroidomegaly. RESPIRATORY: Non-labored respirations and equal bilateral excursions. CARDIOVASCULAR: Regular rate and rhythm. Extremities without moderate edema. Palpable 2+ radial pulses. ABDOMEN: Soft. Non-tender. Nondistended. LYMPH: No neck lymphadenopathy. MUSCULOSKELETAL: Nail and fingers with good capillary refill. no clubbing cyanosis or edema SKIN: Warm and well perfused with good skin turgor. NEUROLOGIC: Cranial nerves II through XII grossly intact. Sensation upper and extremities intact. No focal or lateralizing signs. PSYCH: Appropriate affect. Alert and oriented to person, place and time. CLINCAL LABS: Reviewed. WBC count on admission 12,900. IMAGING: Independently reviewed of CT of the abdomen and pelvis demonstrating retained food within gastric pull-through. Gastric remnant dilated RADIOLOGY: Report reviewed. CT of the abdomen and pelvis report describes large diaphragmatic hiatal hernia and has retained food particle within stomach. Air identified in biliary tree. No evidence of bowel obstruction. Findings are consistent with gastroparesis. RECORDS: previous old records from upper endoscopy 2018 confirming 10 mm orifice of cervical anastomosis dilated ASSESSMENT: 1. Status post esophagectomy with gastric pull-through now with complications 2. Aspiration pneumonia, chronic 3. Memory impairment due to previous surgery were aneurysm 4. Unintentional weight loss due to inadequate protein malnutrition 5. History of anastomotic stricture at cervical anastomosis 6. Gastroparesis per abnormal computed tomography scan PLAN: 1. He does have history of anastomotic stricture and does confirms trouble with swallowing particularly of the oral pharyngeal phase. May benefit from repeat upper endoscopy and esophageal dilation if needed. 2. Also recommend barium swallow to elucidate anastomotic stricture prior to any additional procedures. Likely, risk of gastric outlet obstruction may be present from his gastric pull through which would require transfer to tertiary care center at [facility] 3. Continue nothing by mouth status in the interim with parenteral nutrition 4. The above care plan was described to the patient and at bedside who agree with proceeding with upper endoscopy for additional assessment Thank you for this kind consultation. Past Medical History Past Medical History: Atrial Fibrillation, Cancer, Pneumonia, Seizure Disorder, Sleep Apnea/CPAP/BIPAP Additional Past Medical History / Comment(s): Past medical history is positive for his esophageal cancer with esophagectomy and gastric pull, acid reflux, history of POSTBED STITCHER aneurysm rupture 25 years ago and the patient has difficulties with short-term memory and comprehension and he also neglects his left side, history of seizure activity post aneurysm rupture, history of atrial fibrillation, history of obstructive sleep apnea. He doesn't use any CPAP, history of left heel wound for which she was seen at the wound center in the past, history of GI bleed, HAD DEBRIDEMENT OF LEFT HEEL IN WOUND CENTER, USING WHEELCHAIR History of Any Multi-Drug Resistant Organisms: None Reported Past Surgical History: Cholecystectomy, Joint Replacement Additional Past Surgical History / Comment(s): PARTIAL LEFT HIP REPLACEMENT, RECONSTRUCTION OF ESOPHAGUS, repair of aneurysm w/clip, has brain shunt-not sure if still functions, repair torn retina Past Anesthesia/Blood Transfusion Reactions: Previous Problems w/ Anesthesia Additional Past Anesthesia/Blood Transfusion Reaction / Comm: very slow to wake up-doesn't need much per spouse Past Psychological History: Anxiety Additional Psychological History / Comment(s): SPOUSE STATES ESPECIALLY WHEN HE DOES NOT SEE HER Smoking Status: Never smoker Past Alcohol Use History: Rare Additional Past Alcohol Use History / Comment(s): smoked occasional cigars 30 yrs. ago, AND CHEWED TOBACCO, Past Drug Use History: None Reported - Past Family History Mother Family Medical History: Unable to Obtain Medications and Allergies Home Medications Medication Instructions Recorded Confirmed Type Tamsulosin HCl [Flomax] 0.4 mg PO DAILY 05/26/17 11/10/19 History Aspirin [Adult Low Dose Aspirin EC] 81 mg PO DAILY 09/29/17 11/10/19 History Cyanocobalamin (Vitamin B-12) 1,000 mcg PO DAILY 09/29/17 11/10/19 History [Vitamin B-12] Magnesium 250 mg PO DAILY 10/18/19 11/10/19 History Pantoprazole Sodium [Protonix] 40 mg PO DAILY 10/18/19 11/10/19 History Benzonatate [Tessalon Perles] 100 mg PO TID PRN #20 capsule 11/08/19 11/10/19 Rx Multivitamins, Thera [Multivitamin 1 tab PO DAILY 11/08/19 11/10/19 History (formulary)] Allergies Allergy/AdvReac Type Severity Reaction Status Date / Time No Known Allergies Allergy Verified 11/10/19 08:03 Surgical - Exam Vital Signs Temp Pulse Resp BP Pulse Ox 97.8 F 111 H 20 139/96 93 L 11/09/19 23:12 11/09/19 23:12 11/09/19 23:12 11/09/19 23:12 11/09/19 23:12 Results - Labs 11/13/19 04:31 11/13/19 04:31 Abnormal Lab Results - Last 24 Hours (Table) 11/11/19 11/11/19 11/12/19 Range/Units 06:34 23:56 04:26 Hgb 12.9 L (13.0-17.5) gm/dL Neutrophils # 8.5 H (1.3-7.7) k/uL Lymphocytes # 0.6 L (1.0-4.8) k/uL APTT (22.0-30.0) sec Potassium (3.5-5.1) mmol/L Creatinine (0.66-1.25) mg/dL Glucose (74-99) mg/dL POC Glucose (mg/dL) 110 H (75-99) mg/dL Calcium (8.4-10.2) mg/dL Procalcitonin 0.15 H (0.02-0.09) ng/mL 11/12/19 11/12/19 11/12/19 Range/Units 04:26 04:26 10:31 Hgb (13.0-17.5) gm/dL Neutrophils # (1.3-7.7) k/uL Lymphocytes # (1.0-4.8) k/uL APTT 36.8 H 41.7 H (22.0-30.0) sec Potassium 3.2 L (3.5-5.1) mmol/L Creatinine 0.52 L (0.66-1.25) mg/dL Glucose 126 H (74-99) mg/dL POC Glucose (mg/dL) (75-99) mg/dL Calcium 7.8 L (8.4-10.2) mg/dL Procalcitonin (0.02-0.09) ng/mL 11/12/19 11/12/19 Range/Units 11:56 17:20 Hgb (13.0-17.5) gm/dL Neutrophils # (1.3-7.7) k/uL Lymphocytes # (1.0-4.8) k/uL APTT (22.0-30.0) sec Potassium (3.5-5.1) mmol/L Creatinine (0.66-1.25) mg/dL Glucose (74-99) mg/dL POC Glucose (mg/dL) 114 H 114 H (75-99) mg/dL Calcium (8.4-10.2) mg/dL Procalcitonin (0.02-0.09) ng/mL Diabetes panel 11/12/19 11/12/19 Range/Units 04:26 10:31 Sodium 137 (137-145) mmol/L Potassium 3.2 L 3.7 (3.5-5.1) mmol/L Chloride 101 (98-107) mmol/L Carbon Dioxide 30 (22-30) mmol/L BUN 13 (9-20) mg/dL Creatinine 0.52 L (0.66-1.25) mg/dL Glucose 126 H (74-99) mg/dL Calcium 7.8 L (8.4-10.2) mg/dL Calcium panel 11/12/19 Range/Units 04:26 Calcium 7.8 L (8.4-10.2) mg/dL Pituitary panel 11/12/19 11/12/19 Range/Units 04:26 10:31 Sodium 137 (137-145) mmol/L Potassium 3.2 L 3.7 (3.5-5.1) mmol/L Chloride 101 (98-107) mmol/L Carbon Dioxide 30 (22-30) mmol/L BUN 13 (9-20) mg/dL Creatinine 0.52 L (0.66-1.25) mg/dL Glucose 126 H (74-99) mg/dL Calcium 7.8 L (8.4-10.2) mg/dL Adrenal panel 11/12/19 11/12/19 Range/Units 04:26 10:31 Sodium 137 (137-145) mmol/L Potassium 3.2 L 3.7 (3.5-5.1) mmol/L Chloride 101 (98-107) mmol/L Carbon Dioxide 30 (22-30) mmol/L BUN 13 (9-20) mg/dL Creatinine 0.52 L (0.66-1.25) mg/dL Glucose 126 H (74-99) mg/dL Calcium 7.8 L (8.4-10.2) mg/dL Assessment and Plan (1) History of esophagectomy Current Visit: Yes Status: Acute Code(s): Z98.890 - OTHER SPECIFIED POSTPROCEDURAL STATES; Z90.49 - ACQUIRED ABSENCE OF OTHER SPECIFIED PARTS OF DIGESTIVE TRACT SNOMED Code(s): 99968288455622884 (2) Gastroparesis Current Visit: Yes Status: Acute Code(s): K31.84 - GASTROPARESIS SNOMED Code(s): 481410546 (3) Aspiration pneumonia Current Visit: Yes Status: Acute Priority: High Code(s): J69.0 - PNEUMONITIS DUE TO INHALATION OF FOOD AND VOMIT SNOMED Code(s): 940773285 (4) Dehydration Current Visit: Yes Status: Acute Code(s): E86.0 - DEHYDRATION SNOMED Code(s): 77338454 (5) Nausea and vomiting Current Visit: Yes Status: Acute Code(s): R11.2 - NAUSEA WITH VOMITING, UNSPECIFIED SNOMED Code(s): 53282323 (6) Cerebral aneurysm rupture Current Visit: No Status: Acute Code(s): I60.9 - NONTRAUMATIC SUBARACHNOID HEMORRHAGE, UNSPECIFIED SNOMED Code(s): 249748455 (7) Dysphagia Current Visit: No Status: Acute Code(s): R13.10 - DYSPHAGIA, UNSPECIFIED SNOMED Code(s): 94892287 (8) Memory impairment Current Visit: No Status: Acute Code(s): R41.3 - OTHER AMNESIA SNOMED Code(s): 628652426 (9) Primary esophageal malignancy Current Visit: No Status: Acute Code(s): C15.9 - MALIGNANT NEOPLASM OF ESOPHAGUS, UNSPECIFIED SNOMED Code(s): 768242594
[2019-11-13 00:16] LABS: Glucose,Whole Blood 112 mg/dL (75-99)
[2019-11-13 04:06] VITALS: TEMP 97.5
[2019-11-13] MEDS: AMIODARONE 300 MG in DEXTROSE 5% IN WATER 250 ML IV SCH ×4 (05:13→12:11)
[2019-11-13] MEDS: SODIUM CHLORIDE 0.9% 1,000 ML IV SCH ×2 (05:13→12:11)
[2019-11-13] MEDS: METOCLOPRAMIDE 5 MG/ML 2 ML VIAL IVP SCH ×2 (05:15→12:11)
[2019-11-13 05:19] LABS: Glucose,Whole Blood 90 mg/dL (75-99)
[2019-11-13] MEDS: HEPARIN SOD,PORK IN 0.45% NACL 25,000 UNIT in 0.45% NACL 1 250ML.BAG IV SCH (05:20)
[2019-11-13 05:45] LABS: African American GFR (CKD) >90 (>60 ml/min/1.73 sqM); Anion Gap 3 mmol/L; Blood Urea Nitrogen 11 mg/dL (9-20); Carbon Dioxide 30 mmol/L (22-30); Chloride 102 mmol/L (98-107); Glucose 101 mg/dL (74-99); Non-African American GFR(CKD) >90 (>60 ml/min/1.73 sqM); Potassium 3.5 mmol/L (3.5-5.1); Sodium 135 mmol/L (137-145)
[2019-11-13 05:50] LABS: Basophils % (A) 0 %; Eosinophils # (A) 0.2 k/uL (0-0.7); Eosinophils % (A) 2 %; HCT 43.3 % (39.0-53.0); HGB 13.4 gm/dL (13.0-17.5); Hypochromasia Slight; Lymphocytes # (A) 0.5 k/uL (1.0-4.8); Lymphocytes % (A) 5 %; MCH 28.6 pg (25.0-35.0); MCHC 30.8 g/dL (31.0-37.0); MCV 92.9 fL (80.0-100.0); Mean Platelet Volume 7.3; Monocytes # (A) 0.5 k/uL (0-1.0); Monocytes % (A) 4 %; Neutrophils # (A) 9.4 k/uL (1.3-7.7); Neutrophils % (A) 87 %; Platelet Count 236 k/uL (150-450); RBC 4.66 m/uL (4.30-5.90); RDW 13.5 % (11.5-15.5); WBC 10.7 k/uL (3.8-10.6)
[2019-11-13] MEDS: POTASSIUM CHLORIDE 20 MEQ in WATER FOR INJECTION 1 100ML.BAG IVPB SCH ×2 (06:06→08:12)
[2019-11-13] MEDS: HEPARIN SODIUM,PORCINE 5,000 UNIT/ML 1 ML VIAL IV PRN (06:10)
--- NOTE | 2019-11-13 06:55 | P.PN ---
Subjective Progress Note Date: 11/12/19 Principal diagnosis: Nausea and vomiting, history of esophageal cancer, dysphagia Patient is seen lying in bed continues to have production of sputum. Nausea improved. Objective - Vital Signs Vital signs: Vital Signs Temp 97.6 F 11/12/19 12:00 Pulse 93 11/12/19 12:00 Resp 39 H 11/12/19 12:00 BP 104/70 11/12/19 12:00 Pulse Ox 95 11/12/19 12:00 Intake & Output 11/11/19 11/12/19 11/12/19 18:59 06:59 18:59 Intake Total 890.585 481.376 9718.469 Output Total 1495 465 148 Balance -604.415 292.868 937.469 Weight 65.4 kg Intake: IV 760 400 540 Piperacillin-Tazobactam 3 100 100 .375 gm In Sodium Chloride 0.9% 100 ml @ 25 mls/hr IVPB Q8HR EDER Rx# :[id number] Potassium Chloride 10 meq 100 In Water For Injection 1 100ml.bag @ 100 mls/hr IVPB ONCE STA Rx#: [id number] Potassium Chloride 20 meq 300 200 100 In Water For Injection 1 100ml.bag @ 50 mls/hr IVPB Q2H EDER Rx#: [id number] Sodium Chloride 0.9% 1, 260 200 340 000 ml @ 10 mls/hr IV . Q24H EDER Rx#:[id number] Intake, IV Titration 130.585 357.868 545.469 Amount Amiodarone 300 mg In 250 Dextrose 5% in Water 250 ml @ 0.5 MG/MIN 25 mls/hr IV .Q10H EDER Rx#: [id number] Diltiazem 125 mg In 63.626 Sodium Chloride 0.9% 100 ml @ 5 MG/HR 5 mls/hr IV .Q24H EDER Rx#:[id number] Heparin Sod,Pork in 0.45% 66.959 107.868 45.469 NaCl 25,000 unit In 0.45 % NaCl 1 250ml.bag @ 12 UNITS/KG/HR 7.893 mls/hr IV .Q24H EDER Rx#: [id number] Sodium Chloride 0.9% 500 500 ml 1,000 ml @ 999 mls/hr IV .Q1H1M ONE Rx#: [id number] Output: Urine 1495 465 148 Other: Voiding Method Indwelling Catheter Indwelling Catheter Indwelling Catheter # Voids 0 - Exam On physical examination, patient appears comfortable in no apparent distress. HEAD: Normocephalic, atraumatic. EYES: No scleral icterus. No conjunctival injection. MOUTH: No lesions, tongue midline. NECK: Trachea midline, no gross abnormalities. ABDOMEN: Soft, thin. Bowel sounds are positive. No organomegaly. No guarding or rigidity. EXTREMITIES: No pedal edema. SKIN: No rashes, no jaundice. NEUROLOGIC: Alert and oriented. - Labs CBC & Chem 7: 11/13/19 04:31 11/13/19 04:31 Labs: Abnormal Lab Results - Last 24 Hours (Table) 11/11/19 11/11/19 11/11/19 Range/Units 06:34 15:49 16:35 Hgb (13.0-17.5) gm/dL Neutrophils # (1.3-7.7) k/uL Lymphocytes # (1.0-4.8) k/uL APTT 31.0 H (22.0-30.0) sec Sodium 136 L (137-145) mmol/L Potassium 3.2 L (3.5-5.1) mmol/L Creatinine (0.66-1.25) mg/dL Glucose (74-99) mg/dL POC Glucose (mg/dL) (75-99) mg/dL Calcium (8.4-10.2) mg/dL Procalcitonin 0.15 H (0.02-0.09) ng/mL 11/11/19 11/12/19 11/12/19 Range/Units 23:56 04:26 04:26 Hgb 12.9 L (13.0-17.5) gm/dL Neutrophils # 8.5 H (1.3-7.7) k/uL Lymphocytes # 0.6 L (1.0-4.8) k/uL APTT (22.0-30.0) sec Sodium (137-145) mmol/L Potassium 3.2 L (3.5-5.1) mmol/L Creatinine 0.52 L (0.66-1.25) mg/dL Glucose 126 H (74-99) mg/dL POC Glucose (mg/dL) 110 H (75-99) mg/dL Calcium 7.8 L (8.4-10.2) mg/dL Procalcitonin (0.02-0.09) ng/mL 11/12/19 11/12/19 11/12/19 Range/Units 04:26 10:31 11:56 Hgb (13.0-17.5) gm/dL Neutrophils # (1.3-7.7) k/uL Lymphocytes # (1.0-4.8) k/uL APTT 36.8 H 41.7 H (22.0-30.0) sec Sodium (137-145) mmol/L Potassium (3.5-5.1) mmol/L Creatinine (0.66-1.25) mg/dL Glucose (74-99) mg/dL POC Glucose (mg/dL) 114 H (75-99) mg/dL Calcium (8.4-10.2) mg/dL Procalcitonin (0.02-0.09) ng/mL Assessment and Plan (1) Nausea and vomiting Narrative/Plan: 64-year-old male admitted to the hospital with severe nausea, vomiting and passive regurgitation with concerns over aspiration pneumonia. The patient is status post EGD at [facility] on October 10 with findings of a patent EG anastomosis at 20 cm from the incisors and a normal-appearing stomach. There is no evidence of recurrence of prior malignancy at that time with a normal-appe aring duodenum and moderate amount of liquid and solid food that remained in the stomach. Computed tomography scan on current admission once again showed evidence of gastric pull-through surgery with evidence of retained barium in the stomach which appeared more dilated compared to prior computed tomography scan. Patient has a prior history of esophageal cancer status post radiation and chemotherapy followed by surgery in 2018. Current Visit: Yes Status: Acute Code(s): R11.2 - NAUSEA WITH VOMITING, UNSPECIFIED SNOMED Code(s): 31431712 (2) Dysphagia Current Visit: No Status: Acute Code(s): R13.10 - DYSPHAGIA, UNSPECIFIED SNOMED Code(s): 92628410 (3) Esophageal cancer Narrative/Plan: History of esophageal cancer status post radiation therapy, chemotherapy and surgery in 2018. Current Visit: No Status: Chronic Priority: Medium Code(s): C15.9 - MALIGNANT NEOPLASM OF ESOPHAGUS, UNSPECIFIED SNOMED Code(s): 910812245 Plan: Supportive care Nothing by mouth Continue antiemetic therapy as Continue Protonix 40 mg twice daily Surgical service consult dated for possible J-tube placement, their plan is for barium swallow with plan for EGD with dilation The first further management to the surgical service Thank you for allowing us to this pain in the care of the patient, the GI service will stand by, please call us back with any questions or concerns
[2019-11-13] MEDS: TAMSULOSIN 0.4 MG CAP.ER.24H PO SCH (07:52)
[2019-11-13] MEDS: IPRATROPIUM-ALBUTEROL 3 ML NEB INHALATION SCH ×2 (07:58→11:25)
[2019-11-13] MEDS: PANTOPRAZOLE 40 MG/10 ML VIAL IVP SCH (08:12)
[2019-11-13] MEDS: METOPROLOL TARTRATE 5 MG/5 ML VIAL IVP SCH (08:12)
[2019-11-13] MEDS: PIPERACILLIN-TAZOBACTAM 3.375 GM in SODIUM CHLORIDE 0.9% 100 ML IVPB SCH (08:13)
[2019-11-13] MEDS: DILTIAZEM 125 MG in SODIUM CHLORIDE 0.9% 100 ML IV SCH (08:24)
--- NOTE | 2019-11-13 10:04 | XR ---
EXAMINATION TYPE: XR chest 1V DATE OF EXAM: 11/13/2019 COMPARISON: Prior chest x-ray 11/11/2019 HISTORY: Shortness of breath TECHNIQUE: Single frontal view of the chest is obtained. FINDINGS: Findings are similar to prior exam. Right jugular central venous catheter is present with the distal tip overlying the right atrium. There is contrast retained within the stomach, patient is post gastric pull-through. The hemidiaphragms are obscured due to basilar increased attenuation. Hear t is obscured. No pneumothorax. Patient is rotated. There are overlying cardiac leads. IMPRESSION: Basilar atelectasis versus pneumonia, possible associated effusion. There is postop [place] [facility].
--- NOTE | 2019-11-13 10:31 | P.PN ---
<Alison Spence A - Last Filed: 11/13/19 10:19> Subjective Progress Note Date: 11/13/19 CHIEF COMPLAINT: J tube placement HISTORY OF PRESENT ILLNESS: Patient examined this morning with Dr. Briones. Patient underwent barium swallow yesterday revealing gastric outlet obstruction. PHYSICAL EXAM: VITAL SIGNS: Reviewed GENERAL: Well-developed in no acute distress. HEENT: No sclera icterus. Extraocular movements grossly intact. Moist buccal mucosa. Head is atraumatic, normocephalic. Hears conversational speech. No nasal drainage. NECK: Supple without lymphadenopathy. CHEST: Non-labored respirations and equal bilateral excursions. Frequent cough ing noted. CARDIOVASCULAR: Regular rate with regular rhythm. Palpable 2+ radial pulses. ABDOMEN: Soft. Nondistended. Nontender. MUSCULOSKELETAL: No clubbing or cyanosis. NEUROLOGIC: No focal or lateralizing signs. Cranial nerves II through XII grossly intact. PSYCH: Appropriate affect. Alert and oriented to person, place and time. SKIN: Well perfused. Good skin turgor. ASSESSMENT: 1. Gastric outlet obstruction 2. History of esophagectomy PLAN: Dr. Briones spoke to patient and recommended transfer to [facility] as patient has an obstruction related to his previous esophagectomy surgery performed at [facility]. Recommendations for transfer to [facility] were relayed to admitting provider, Dr. Chaudhary Nurse practitioner note has been reviewed by physician. Signing provider agrees with the documented findings, assessment, and plan of care. Objective - Vital Signs Vital signs: Vital Signs Temp 97.5 F L 11/13/19 04:00 Pulse 86 11/13/19 09:00 Resp 23 11/13/19 09:00 BP 141/92 11/13/19 09:00 Pulse Ox 96 11/13/19 09:00 Intake & Output 11/12/19 11/13/19 11/13/19 18:59 06:59 18:59 Intake Total 7912.005 6025.353 Output Total 213 285 Balance 0945.217 6152.353 Weight 66 kg Intake: IV 715 900 Piperacillin-Tazobactam 3 200 100 .375 gm In Sodium Chloride 0.9% 100 ml @ 25 mls/hr IVPB Q8HR [facility] Rx# :[id number] Potassium Chloride 10 meq 200 In Water For Injection 1 100ml.bag @ 100 mls/hr IVPB ONCE [facility] Rx#: [id number] Potassium Chloride 20 meq 100 In Water For Injection 1 100ml.bag @ 50 mls/hr IVPB Q2H [facility] Rx#: [id number] Sodium Chloride 0.9% 1, 415 000 ml @ 10 mls/hr IV . Q24H [facility] Rx#:[id number] Sodium Chloride 0.9% 1, 600 000 ml @ 75 mls/hr IV . [id number] [facility] Rx#:[id number] Intake, IV Titration 1217.689 525.353 Amount Amiodarone 300 mg In 238.333 250 Dextrose 5% in Water 250 ml @ 0.5 MG/MIN 25 mls/hr IV .Q10H [facility] Rx#: [id number] Heparin Sod,Pork in 0.45% 104.356 200.353 NaCl 25,000 unit In 0.45 % NaCl 1 250ml.bag @ 12 UNITS/KG/HR 7.893 mls/hr IV .Q24H [facility] Rx#: [id number] Sodium Chloride 0.9% 1, 375 75 000 ml @ 75 mls/hr IV . [id number] [facility] Rx#:[id number] Sodium Chloride 0.9% 500 500 ml 1,000 ml @ 999 mls/hr IV .Q1H1M [facility] Rx#: [id number] Output: Urine 213 285 Other: Voiding Method Indwelling Catheter Indwelling Catheter Indwelling Catheter - Labs CBC & Chem 7: 11/13/19 04:31 11/13/19 04:31 Labs: Abnormal Lab Results - Last 24 Hours (Table) 11/12/19 11/12/19 11/12/19 Range/Units 10:31 11:56 17:20 WBC (3.8-10.6) k/uL MCHC (31.0-37.0) g/dL Neutrophils # (1.3-7.7) k/uL Lymphocytes # (1.0-4.8) k/uL APTT 41.7 H (22.0-30.0) sec Sodium (137-145) mmol/L Creatinine (0.66-1.25) mg/dL Glucose (74-99) mg/dL POC Glucose (mg/dL) 114 H 114 H (75-99) mg/dL Calcium (8.4-10.2) mg/dL 06/30/20 06/30/20 06/30/20 Range/Units 00:14 04:31 04:31 WBC 10.7 H (3.8-10.6) k/uL MCHC 30.8 L (31.0-37.0) g/dL Neutrophils # 9.4 H (1.3-7.7) k/uL Lymphocytes # 0.5 L (1.0-4.8) k/uL APTT (22.0-30.0) sec Sodium 135 L (137-145) mmol/L Creatinine 0.52 L (0.66-1.25) mg/dL Glucose 101 H (74-99) mg/dL POC Glucose (mg/dL) 112 H (75-99) mg/dL Calcium 8.0 L (8.4-10.2) mg/dL 11/13/19 Range/Units 04:31 WBC (3.8-10.6) k/uL MCHC (31.0-37.0) g/dL Neutrophils # (1.3-7.7) k/uL Lymphocytes # (1.0-4.8) k/uL APTT 40.1 H (22.0-30.0) sec Sodium (137-145) mmol/L Creatinine (0.66-1.25) mg/dL Glucose (74-99) mg/dL POC Glucose (mg/dL) (75-99) mg/dL Calcium (8.4-10.2) mg/dL <Steph Briones - Last Filed: 11/13/19 12:04> Subjective Patient seen and evaluated nurse practitioner at bedside. Additional findings below. HISTORY OF PRESENT ILLNESS: The patient is a 64-year-old male who presents for aspiration pneumonia. He has known history of esophagectomy with gastric pull- through and has had progressive dysphagia including recurrent aspiration and cough. Yesterday, additional medication adjustments including Reglan 10 mg ever y 6 hours were prescribed for gastroparesis. At the time of our assessment patient was coughing. He denied any abdominal pain. His was not at bedside. ROS: No fevers or chills. No new chest pain. He has been nothing by mouth except for a barium study. PHYSICAL EXAM: VITAL SIGNS: Reviewed CONSTITUTIONAL: Well developed and in no acute distress. EYES: Conjuctivae without sclera icterus. Extraocular movements grossly intact. HEAD, EARS, NOSE, THROAT: Moist buccal mucosa. Head is atraumatic, normocephalic. Hears conversational speech. No nasal drainage. NECK: Supple. No thyroidomegaly. RESPIRATORY: Non-labored respirations and equal bilateral excursions. CARDIOVASCULAR: Palpable 2+ radial pulses. ABDOMEN: Soft. Nontender. MUSCULOSKELETAL: No clubbing. No cyanosis. SKIN: Good skin turgor. Well perfused. NEUROLOGIC: Cranial nerves II through XII grossly intact. No focal or lateralizing signs. PSYCH: Appropriate affect. Alert and oriented to person, place and time. CLINICAL LABS: White blood cell count elevated from 10.0-10.7. STUDIES: Gastrografin thin barium swallow independently reviewed demonstrating no overt evidence of aspiration. Immediately cut of contrast above the diaphragm highly suspicious for gastric outlet obstruction. Gastric pull-throu gh dilated. This my independent interpretation. REPORT: Also reviewed Gastrografin swallow confirms no overt gastroesophageal reflux disease. ASSESSMENT: 1. Complications from esophagectomy with gastric outlet obstruction PLAN: 1. Recommend transfer to [facility] where his esophagectomy and gastric pull-through was performed. 2. An interim, continue nothing by mouth with TPN Objective - Vital Signs Vital signs: Vital Signs Temp 97.5 F L 11/13/19 04:00 Pulse 90 11/13/19 11:37 Resp 34 H 11/13/19 10:00 BP 155/85 11/13/19 10:00 Pulse Ox 96 11/13/19 10:00 Intake & Output 11/12/19 11/13/19 11/13/19 18:59 06:59 18:59 Intake Total 8940.043 3101.353 Output Total 213 285 Balance 0825.710 6157.353 Weight 66 kg Intake: IV 715 900 Piperacillin-Tazobactam 3 200 100 .375 gm In Sodium Chloride 0.9% 100 ml @ 25 mls/hr IVPB Q8HR [facility] Rx# :[id number] Potassium Chloride 10 meq 200 In Water For Injection 1 100ml.bag @ 100 mls/hr IVPB ONCE [facility] Rx#: [id number] Potassium Chloride 20 meq 100 In Water For Injection 1 100ml.bag @ 50 mls/hr IVPB Q2H [facility] Rx#: [id number] Sodium Chloride 0.9% 1, 415 000 ml @ 10 mls/hr IV . Q24H [facility] Rx#:[id number] Sodium Chloride 0.9% 1, 600 000 ml @ 75 mls/hr IV . [id number] [facility] Rx#:[id number] Intake, IV Titration 1217.689 525.353 Amount Amiodarone 300 mg In 238.333 250 Dextrose 5% in Water 250 ml @ 0.5 MG/MIN 25 mls/hr IV .Q10H [facility] Rx#: [id number] Heparin Sod,Pork in 0.45% 104.356 200.353 NaCl 25,000 unit In 0.45 % NaCl 1 250ml.bag @ 12 UNITS/KG/HR 7.893 mls/hr IV .Q24H [facility] Rx#: [id number] Sodium Chloride 0.9% 1, 375 75 000 ml @ 75 mls/hr IV . [id number] [facility] Rx#:[id number] Sodium Chloride 0.9% 500 500 ml 1,000 ml @ 999 mls/hr IV .Q1H1M [facility] Rx#: [id number] Output: Urine 213 285 Other: Voiding Method Indwelling Catheter Indwelling Catheter Indwelling Catheter - Labs CBC & Chem 7: 11/13/19 04:31 11/13/19 04:31 Labs: Abnormal Lab Results - Last 24 Hours (Table) 11/12/19 11/12/19 11/13/19 Range/Units 11:56 17:20 00:14 WBC (3.8-10.6) k/uL MCHC (31.0-37.0) g/dL Neutrophils # (1.3-7.7) k/uL Lymphocytes # (1.0-4.8) k/uL APTT (22.0-30.0) sec Sodium (137-145) mmol/L Creatinine (0.66-1.25) mg/dL Glucose (74-99) mg/dL POC Glucose (mg/dL) 114 H 114 H 112 H (75-99) mg/dL Calcium (8.4-10.2) mg/dL 11/13/19 11/13/19 11/13/19 Range/Units 04:31 04:31 04:31 WBC 10.7 H (3.8-10.6) k/uL MCHC 30.8 L (31.0-37.0) g/dL Neutrophils # 9.4 H (1.3-7.7) k/uL Lymphocytes # 0.5 L (1.0-4.8) k/uL APTT 40.1 H (22.0-30.0) sec Sodium 135 L (137-145) mmol/L Creatinine 0.52 L (0.66-1.25) mg/dL Glucose 101 H (74-99) mg/dL POC Glucose (mg/dL) (75-99) mg/dL Calcium 8.0 L (8.4-10.2) mg/dL Assessment and Plan (1) History of esophagectomy Current Visit: Yes Status: Acute Code(s): Z98.890 - OTHER SPECIFIED POSTPROCEDURAL STATES; Z90.49 - ACQUIRED ABSENCE OF OTHER SPECIFIED PARTS OF DIGESTIVE TRACT SNOMED Code(s): 20057662003738715 (2) Gastroparesis Current Visit: Yes Status: Acute Code(s): K31.84 - GASTROPARESIS SNOMED Code(s): 034565385 (3) Aspiration pneumonia Current Visit: Yes Status: Acute Priority: High Code(s): J69.0 - PNEUMONITIS DUE TO INHALATION OF FOOD AND VOMIT SNOMED Code(s): 650914903 (4) Dehydration Current Visit: Yes Status: Acute Code(s): E86.0 - DEHYDRATION SNOMED Code(s): 41054862 (5) Nausea and vomiting Current Visit: Yes Status: Acute Code(s): R11.2 - NAUSEA WITH VOMITING, UNSPECIFIED SNOMED Code(s): 82481059 (6) Cerebral aneurysm rupture Current Visit: No Status: Acute Code(s): I60.9 - NONTRAUMATIC SUBARACHNOID HEMORRHAGE, UNSPECIFIED SNOMED Code(s): 048303259 (7) Dysphagia Current Visit: No Status: Acute Code(s): R13.10 - DYSPHAGIA, UNSPECIFIED SNOMED Code(s): 38122636 (8) Memory impairment Current Visit: No Status: Acute Code(s): R41.3 - OTHER AMNESIA SNOMED Code(s): 092126767 (9) Primary esophageal malignancy Current Visit: No Status: Acute Code(s): C15.9 - MALIGNANT NEOPLASM OF ESOPHAGUS, UNSPECIFIED SNOMED Code(s): 718328429
[2019-11-13 11:34] LABS: Glucose,Whole Blood 82 mg/dL (75-99)
[2019-11-13 12:35] VITALS: BP 139/96; PULSE 89; RESP 35
--- NOTE | 2019-11-13 13:16 | P.PN ---
Subjective Progress Note Date: 11/13/19 Principal diagnosis: Acute hypoxic respiratory failure secondary to recurrent aspiration pneumonia. A 64-year-old male patient who got transferred to the intensive care unit this morning because of atrial fibrillation with rapid ventricular response. The patient is known to me. I seen him on a previous consultation in early October for aspiration pneumonia. I think he aspirated another time this morning and he subsequently went into A. fib RVR. He is known to have chronic atrial fibrillation. His heart rate was in the 200s range and the patient was having significant respiratory distress and for that reason the patient got transferred to the intensive care unit. Currently is on 10 L of oxygen by nasal cannula. He is still tachypneic. His heart rate is improved while being on a Cardizem drip at 10 mg an hour and his heart rate currently is running at around 160, irregular consistent with atrial fibrillation. Denies having any chest pain. Note that he has a previous history of CVA and he is unable to volunteer appropriate and reliable history. He does have aspiration due to previous history of esophageal cancer that was resected and the patient has had es ophagectomy with gastric pull and he has gastroparesis and is being considered for a J-tube insertion. I did see him for a consultation approximately 3 weeks ago for an aspiration pneumonia and back then the patient was given IV Zosyn and he was successfully treated and he was discharged. No history of any decompensated heart failure. No leg edema. Reevaluated today on 11/12/19, patient remains in the ICU, presently on high flow nasal cannula at 8 L/m. His IV fluid is at KVO, patient is on amiodarone at 0.5 mg per hour. He is in sinus rhythm, and he is hemodynamically stable. Remains on Zosyn, and according to the history given to me by the patient and by his , patient is likely experiencing intermittent episodes of aspiration, in the past patient underwent EGD and elevation of his esophagus, and according to the that helped significantly. Hence I will recommend reevaluation by general surgery for possible EGD and elevation of his esophagus. Patient had previous esophageal cancer diagnosed in 2018, and he had surgery done at [facility] by Dr. Sanches. Chest x-ray continues to show bilateral infiltrates consistent with aspiration. Labs including CBC and basic metabolic profile are unremarkable. Patient is in no distress, hence I plan to transfer the patient out of the ICU to a monitor bed on [facility] today Patient was reevaluated today on 11/13/19, remains in the ICU, on 4 L nasal cannula. We are seeing him mostly for aspiration pneumonia. Remains on antibiotics. Patient still having intermittent episodes of vomiting, on Reglan scheduled. Chest x-ray showed worsening bilateral infiltrates. Patient underwent a barium swallow and he was found to have gastric outlet obstruction. Hence the surgeon on the case is recommending transferring the patient to [facility]. In the meantime the patient remains on IV fluid at 75 mL per hour, amiodarone at 0.5 mg/kg/m. Patient will be started on TPN for nutritional support. Surgery is not planning any thing to be done in this institution, and his previous surgery was done at [facility] hence the surgeon is recommending transferred to [facility] Objective - Vital Signs Vital signs: Vital Signs Temp 97.5 F L 11/13/19 04:00 Pulse 89 11/13/19 12:00 Resp 35 H 11/13/19 12:00 BP 139/96 11/13/19 12:00 Pulse Ox 95 11/13/19 12:00 Intake & Output 11/12/19 11/13/19 11/13/19 18:59 06:59 18:59 Intake Total 3935.992 3479.353 254.967 Output Total 213 285 Balance 8867.558 2892.353 254.967 Weight 66 kg Intake: IV 715 900 Piperacillin-Tazobactam 3 200 100 .375 gm In Sodium Chloride 0.9% 100 ml @ 25 mls/hr IVPB Q8HR [facility] Rx# :[id number] Potassium Chloride 10 meq 200 In Water For Injection 1 100ml.bag @ 100 mls/hr IVPB ONCE [facility] Rx#: [id number] Potassium Chloride 20 meq 100 In Water For Injection 1 100ml.bag @ 50 mls/hr IVPB Q2H [facility] Rx#: [id number] Sodium Chloride 0.9% 1, 415 000 ml @ 10 mls/hr IV . Q24H [facility] Rx#:[id number] Sodium Chloride 0.9% 1, 600 000 ml @ 75 mls/hr IV . [id number] [facility] Rx#:[id number] Intake, IV Titration 1217.689 525.353 254.967 Amount Amiodarone 300 mg In 238.333 250 174.167 Dextrose 5% in Water 250 ml @ 0.5 MG/MIN 25 mls/hr IV .Q10H [facility] Rx#: [id number] Heparin Sod,Pork in 0.45% 104.356 200.353 80.8 NaCl 25,000 unit In 0.45 % NaCl 1 250ml.bag @ 12 UNITS/KG/HR 7.893 mls/hr IV .Q24H [facility] Rx#: [id number] Sodium Chloride 0.9% 1, 375 75 000 ml @ 75 mls/hr IV . [id number] [facility] Rx#:[id number] Sodium Chloride 0.9% 500 500 ml 1,000 ml @ 999 mls/hr IV .Q1H1M [facility] Rx#: [id number] Output: Urine 213 285 Other: Voiding Method Indwelling Catheter Indwelling Catheter Indwelling Catheter - Exam Physical Exam Gen. physical exam:Revealed a 64-year-old white male, on 4 L nasal cannula HEENT: [No neck masses.] [No thyromegaly.] [No JVD.] Chest: [Crackles and rhonchi noted bilaterally. Symmetrical chest expansion. Cardiac Exam: [Normal S1 and S2, no S3 gallop, no murmur.] Abdomen: [Soft, nontender, no megaly, no rebound, no guarding, normal bowel sounds.] Extremities: [No clubbing, no edema, no cyanosis.] Neurological Exam: [Patient is awake, alert, however the patient has some high meaning lack related to previous CVA. Psychiatric: Normal mood affect and the relatively normal mental status examination, however he has poor memory. Skin: No rashes. - Labs CBC & Chem 7: 11/13/19 04:31 11/13/19 04:31 Labs: Abnormal Lab Results - Last 24 Hours (Table) 11/12/19 11/13/19 11/13/19 Range/Units 17:20 00:14 04:31 WBC 10.7 H (3.8-10.6) k/uL MCHC 30.8 L (31.0-37.0) g/dL Neutrophils # 9.4 H (1.3-7.7) k/uL Lymphocytes # 0.5 L (1.0-4.8) k/uL APTT (22.0-30.0) sec Sodium (137-145) mmol/L Creatinine (0.66-1.25) mg/dL Glucose (74-99) mg/dL POC Glucose (mg/dL) 114 H 112 H (75-99) mg/dL Calcium (8.4-10.2) mg/dL 11/13/19 11/13/19 Range/Units 04:31 04:31 WBC (3.8-10.6) k/uL MCHC (31.0-37.0) g/dL Neutrophils # (1.3-7.7) k/uL Lymphocytes # (1.0-4.8) k/uL APTT 40.1 H (22.0-30.0) sec Sodium 135 L (137-145) mmol/L Creatinine 0.52 L (0.66-1.25) mg/dL Glucose 101 H (74-99) mg/dL POC Glucose (mg/dL) (75-99) mg/dL Calcium 8.0 L (8.4-10.2) mg/dL Assessment and Plan Assessment: Impression: Acute hypoxic respiratory failure secondary to recurrent aspiration pneumonia. History of esophageal stricture requiring dilatation by Dr. Morales. History of esophageal cancer and previous esophagectomy and gastric pull. Gastric outlet obstruction as noted on barium swallow, hence surgery is recommending transferring the patient to [facility] History of [employer] aneurysm rupture requiring clipping. Patient has residual memory deficit. History of GI bleeding. History of obstructive sleep apnea. Not utilizing CPAP. Paroxysmal atrial fibrillation. Presently in sinus. History of left heel wound History of chronic dysphagia and gastroparesis. However his symptoms seem to be more or less related to gastric outlet obstruction. History of esophageal dilatation. History of seizure disorder. Recommendation: Continue antibiotics and/Zosyn. Continue IV heparin. Continue antiarrhythmic medications for his atrial fibrillation/RVR. Continue IV fluids. Agree with transfer plans to [facility], and this will be done by the admitting physician. Continue aspiration precautions. Overall prognosis seems to be extremely poor and guarded. Hopefully the patient could be transferred to [facility] today. Time with Patient: Less than 30
--- NOTE | 2019-11-13 14:22 | P.DS ---
Providers Date of admission: 11/11/19 10:10 Expected date of discharge: 11/13/19 Attending physician: Vic Chaudhary Consults: 11/10/19 04:45 Consult Physician Urgent Consulting Provider: David Padilla Consult Reason/Comments: known Do you want consulting provider notified?: Yes 11/10/19 12:02 Consult Physician Routine Consulting Provider: Steph Briones Consult Reason/Comments: J tube placement. Gastroparesis, recurrent aspirati on due to reflux Do you want consulting provider notified?: Yes 11/10/19 15:32 Consult Physician Routine Consulting Provider: Liz Blanco Consult Reason/Comments: pneumonia, resp failure Do you want consulting provider notified?: Yes 11/11/19 08:44 Consult Physician Routine Consulting Provider: Kevin Claros Consult Reason/Comments: Afib RVR Do you want consulting provider notified?: Already Contacted Primary care physician: [facility] Course: Presenting complaint: Short of breath, vomiting History of presenting complaint: This is a pleasant 64-year-old patient of Dr. Deluna. Chronic stable medical conditions include atrial fibrillation, sleep apnea,(s)-doesn't use CPAP. Also the right kidney mass that is being monitored. Patient has a history of esophageal cancer with partial esophagectomy. Patient did receive both chemotherapy and finished treatment that was through 2017 with initial diagnoses and treatment completion in 2019. Patient been told is cancer free. Did follow with Dr. Wilder. Admitted early part of this month with-aspiration pneumonia., hypoxic respiratory failure. Recent endoscopy at [facility] by Dr. Jed Claros had shown a patent GEN anastomosis. large amount of retained food noted in the stomach suggestive of gastroparesis. Patient now presents with episodes of vomiting and aspiration pneumonia. Leading to acute hypoxic respiratory failure. Put on IV Zosyn. Also had an arrhythmia for which she was put on amiodarone and IV Cardizem. Today-Dr. Morales spoke to the patient and his . Suggested patient to be transferred out to [facility] by could do further intervention. I did discuss with Dr. Jed Claros with him the patient is well- known. Patient will probably need a jejunostomy tube. I did discuss with the patient's in detail. At this point she'll like to go down to [facility] and let Dr. Saucedo make a final determination.patient remains in sinus rhythm. Nothing by mouth. Spoke to the vacation planner. Also spoke to the general surgery on-call at [facility]. Given opted to the patient. Carl cifuentes was accepted. Discussion and discharge planning more than 35 minutes Consultation: Dr. Rayo current colleagues from critical care Dr. Briones from general surgery Dr. Ortega and partner from GI Physical examination: VITAL SIGNS: afebrile, 84, 32, 136/91, 96% on 2 L GENERAL: sitting up in bed, awake EYES: Pupils equal. Conjunctiva pale HEENT: External appearance of nose and ears normal, oral cavity-dry NECK: JVD not raised; masses not palpable. HEART: First and second heart sounds are normal; no edema. LUNGS:[ Respiratory rate increased; decreased breath sounds. ABDOMEN: Soft, nontender, liver spleen not palpable, no masses palpable. PSYCH: [Patient able answer simple questions . INVESTIGATIONS, reviewed in the clinical context: white count 10.7 hemoglobin 13.4 potassium 3.5 creatinine 0.5 to Barium swallow-. Barium Does not seem to go past the stomach. Previous testing: COVID 19 PCR-not detected 2-D echocardiogram-EF 55-60% Computed tomography scan of the abdomen-suggestive of gastroparesis. Sigmoid diverticulosis. Pulmonary infiltrates. Assessment: -Probable aspiration pneumonia. POA -Acute hypoxic respiratory failure secondary to aspiration pneumonia POA -Likely severe gastroparesis as recent EGD and not showing any mechanical obstruction. 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 -GERD -BPH -Mild protein calorie malnutrition from decreased oral intake disposition: Patient being transferred to [facility]. [facility]. For high level of care. Also patient's partial esophagectomy and gastric pull-through was done there. Also recommended by Dr. Morales patient general surgery here. Patient Condition at Discharge: Undetermined Plan - Discharge Summary Discharge Rx Participant: No New Discharge Prescriptions: No Action Tamsulosin HCl [Flomax] 0.4 mg PO DAILY Aspirin [Adult Low Dose Aspirin EC] 81 mg PO DAILY Cyanocobalamin (Vitamin B-12) [Vitamin B-12] 1,000 mcg PO DAILY Pantoprazole Sodium [Protonix] 40 mg PO DAILY Magnesium 250 mg PO DAILY Multivitamins, Thera [Multivitamin (formulary)] 1 tab PO DAILY Benzonatate [Tessalon Perles] 100 mg PO TID PRN #20 capsule PRN Reason: Cough Discharge Medication List Tamsulosin HCl [Flomax] 0.4 mg PO DAILY 05/26/17 [History] Aspirin [Adult Low Dose Aspirin EC] 81 mg PO DAILY 09/29/17 [History] Cyanocobalamin (Vitamin B-12) [Vitamin B-12] 1,000 mcg PO DAILY 09/29/17 [History] Magnesium 250 mg PO DAILY 10/18/19 [History] Pantoprazole Sodium [Protonix] 40 mg PO DAILY 10/18/19 [History] Benzonatate [Tessalon Perles] 100 mg PO TID PRN #20 capsule 11/08/19 [Rx] Multivitamins, Thera [Multivitamin (formulary)] 1 tab PO DAILY 11/08/19 [History] Follow up Appointment(s)/Referral(s): Claude Deluna MD [Primary Care Provider] - 1-2 days [facility], [NON-STAFF] - 1-2 Days Discharge Disposition: OTHER INSTITUTION NOT DEFINED
--- NOTE | 2019-11-13 17:49 | P.PN ---
Subjective Progress Note Date: 11/13/19 Principal diagnosis: N,V, aspiration pneumonia In follow-up today, patient is pleasant, as always. He denies any pain, difficulty breathing, cough is strong, mucus expectoration. Objective - Vital Signs Vital signs: Vital Signs Temp 97.5 F L 11/13/19 04:00 Pulse 89 11/13/19 12:00 Resp 35 H 11/13/19 12:00 BP 139/96 11/13/19 12:00 Pulse Ox 95 11/13/19 12:00 Intake & Output 11/12/19 11/13/19 11/13/19 18:59 06:59 18:59 Intake Total 9430.191 3370.353 254.967 Output Total 213 285 Balance 4716.348 2485.353 254.967 Weight 66 kg Intake: IV 715 900 Piperacillin-Tazobactam 3 200 100 .375 gm In Sodium Chloride 0.9% 100 ml @ 25 mls/hr IVPB Q8HR EDER Rx# :[id number] Potassium Chloride 10 meq 200 In Water For Injection 1 100ml.bag @ 100 mls/hr IVPB ONCE STA Rx#: [id number] Potassium Chloride 20 meq 100 In Water For Injection 1 100ml.bag @ 50 mls/hr IVPB Q2H EDER Rx#: [id number] Sodium Chloride 0.9% 1, 415 000 ml @ 10 mls/hr IV . Q24H EDER Rx#:[id number] Sodium Chloride 0.9% 1, 600 000 ml @ 75 mls/hr IV . [id number] EDER Rx#:[id number] Intake, IV Titration 1217.689 525.353 254.967 Amount Amiodarone 300 mg In 238.333 250 174.167 Dextrose 5% in Water 250 ml @ 0.5 MG/MIN 25 mls/hr IV .Q10H EDER Rx#: [id number] Heparin Sod,Pork in 0.45% 104.356 200.353 80.8 NaCl 25,000 unit In 0.45 % NaCl 1 250ml.bag @ 12 UNITS/KG/HR 7.893 mls/hr IV .Q24H EDER Rx#: [id number] Sodium Chloride 0.9% 1, 375 75 000 ml @ 75 mls/hr IV . [id number] EDER Rx#:[id number] Sodium Chloride 0.9% 500 500 ml 1,000 ml @ 999 mls/hr IV .Q1H1M ONE Rx#: [id number] Output: Urine 213 285 Other: Voiding Method Indwelling Catheter Indwelling Catheter Indwelling Catheter - Constitutional General appearance: Present: cooperative, no acute distress, thin - EENT Eyes: Present: anicteric sclerae, EOMI ENT: Present: hearing grossly normal - Respiratory Respiratory: bilateral: CTA, diminished - Cardiovascular Heart sounds: normal: S1, S2 - Peripheral edema leg Peripheral Edema: bilateral: None - Gastrointestinal General gastrointestinal: Present: decreased bowel sounds, soft - Neurologic Neurologic: Present: CNII-XII intact - Musculoskeletal Musculoskeletal: Present: generalized weakness - Psychiatric Psychiatric: Present: A&O x's 3, appropriate affect - Labs CBC & Chem 7: 11/13/19 04:31 11/13/19 04:31 Labs: Abnormal Lab Results - Last 24 Hours (Table) 11/13/19 11/13/19 11/13/19 Range/Units 00:14 04:31 04:31 WBC 10.7 H (3.8-10.6) k/uL MCHC 30.8 L (31.0-37.0) g/dL Neutrophils # 9.4 H (1.3-7.7) k/uL Lymphocytes # 0.5 L (1.0-4.8) k/uL APTT (22.0-30.0) sec Sodium 135 L (137-145) mmol/L Creatinine 0.52 L (0.66-1.25) mg/dL Glucose 101 H (74-99) mg/dL POC Glucose (mg/dL) 112 H (75-99) mg/dL Calcium 8.0 L (8.4-10.2) mg/dL 11/13/19 Range/Units 04:31 WBC (3.8-10.6) k/uL MCHC (31.0-37.0) g/dL Neutrophils # (1.3-7.7) k/uL Lymphocytes # (1.0-4.8) k/uL APTT 40.1 H (22.0-30.0) sec Sodium (137-145) mmol/L Creatinine (0.66-1.25) mg/dL Glucose (74-99) mg/dL POC Glucose (mg/dL) (75-99) mg/dL Calcium (8.4-10.2) mg/dL - Imaging and Cardiology Barium swallow report reviewed Assessment and Plan (1) Aspiration pneumonia Narrative/Plan: Patient has a history of the same. Being treated with antibiotics Status: Acute Priority: High Code(s): J69.0 - PNEUMONITIS DUE TO INHALATION OF FOOD AND VOMIT SNOMED Code(s): 448543652 (2) Esophageal cancer Narrative/Plan: Patient has been treated for the same. EGD 10/02 was no evidence of disease. CT of the abdomen and pelvis done this admission, no adenopathy or evidence of metastasis. No evidence of metastasis on CT of the brain. Patient will continue on follow-up for treated malignancy. Status: Chronic Priority: Medium Code(s): C15.9 - MALIGNANT NEOPLASM OF ESOPHAGUS, UNSPECIFIED SNOMED Code(s): 954351354 Plan: Case discussed with case management, nursing as well as patient's . Plan is for patient to be transferred back down to [facility] under the care of the original surgeon who did the gastric pull-through. Barium swallow showing inability of food to pass agree with transfer. Patient will continue on follow- up with Medical Oncology.
--- NOTE | 2019-11-13 18:30 | PN ---
PROGRESS NOTE FOLLOW-UP NOTE: Umesh is a 64-year-old gentleman was admitted to hospital with atrial fibrillation with rapid ventricular rate, converted to sinus rhythm following a cardioversion in the emergency room. He is currently on IV amiodarone and IV heparin. Patient is not able to swallow, and once his swallowing issues are addressed, I am going to switch his heparin to Eliquis and IV amiodarone to oral amiodarone. On exam, comfortable at rest. Vital signs are stable. Respiratory rate is elevated. There is no jugular venous distention. Chest exam reveals diminished air entry at the bases. Heart exam reveals first and second heart sounds. Regular rhythm. Abdomen is soft. Examination of extremities did not reveal any edema. Peripheral pulses are felt. Labs show a hemoglobin of 13.4, creatinine 0.5. ASSESSMENT: 1. Paroxysmal atrial fibrillation, status post cardioversion. 2. History of carcinoma of esophagus, status post surgery. PLAN: Continue the IV amiodarone and heparin at this time. MMODL / IJN: [id number] /
[2019-11-13] MEDS ORDERED: LACTATED RINGERS 1,000 ML IV SCH (19:30)
== END 2019-11-13 14:03 | disposition short-term general hospital (02) | DRG 177 ==
LOC: EC 23:09 → 4SSUR 11-10 04:04 → 2SICU 11-11 08:47 → OBSVTOIN 11-11 10:10
PROVIDERS: ADMIT Hospitalist; ATTEND Hospitalist
DX: J69.0 Pneumonitis due to inhalation of food and vomit (principal); J96.01 Acute respiratory failure with hypoxia; I48.19 Other persistent atrial fibrillation; E87.1 Hypo-osmolality and hyponatremia; C15.9 Malignant neoplasm of esophagus, unspecified; E44.1 Mild protein-calorie malnutrition; K31.1 Adult hypertrophic pyloric stenosis; J98.11 Atelectasis; Z96.642 Presence of left artificial hip joint; K21.0 Gastro-esophageal reflux disease with esophagitis; F32.9 Major depressive disorder, single episode, unspecified; G40.909 Epilepsy, unspecified, not intractable, without status epilepticus; I69.912 Visuospatial deficit and spatial neglect following unspecified cerebrovascular disease; N40.0 Benign prostatic hyperplasia without lower urinary tract symptoms; F41.9 Anxiety disorder, unspecified; Z20.828 Contact with and (suspected) exposure to other viral communicable diseases; K31.84 Gastroparesis; G47.33 Obstructive sleep apnea (adult) (pediatric); E87.6 Hypokalemia; E86.0 Dehydration; N31.9 Neuromuscular dysfunction of bladder, unspecified; F02.80 Dementia in other diseases classified elsewhere, unspecified severity, without behavioral disturbance, psychotic disturbance, mood disturbance, and anxiety; N28.89 Other specified disorders of kidney and ureter; Z79.899 Other long term (current) drug therapy; Z79.82 Long term (current) use of aspirin; Z87.01 Personal history of pneumonia (recurrent); Z92.21 Personal history of antineoplastic chemotherapy; Z90.49 Acquired absence of other specified parts of digestive tract; Z92.3 Personal history of irradiation; Z87.891 Personal history of nicotine dependence; Z68.20 Body mass index [BMI] 20.0-20.9, adult
CPT/HCPCS: 36415; 36600; 70450; 71045; 71046; 71275; 74018; 74019; 74176; 74220; 80048; 80051; 80053; 80320; 80329; 82140; 82550; 82805; 83520; 83605; 83735; 83880; 84132; 84145; 84484; 85025; 85379; 85610; 85730; 93005; 93306; 94640; 96361; 96374; 96375; 99285

== ENCOUNTER 2019-12-04 09:18 | Emergency (ER) | payer MEDICARE, BC ==
[2019-12-04 10:09] LABS: Basophils % (A) 0 %; Eosinophils # (A) 0.4 k/uL (0-0.7); Eosinophils % (A) 5 %; HCT 38.3 % (39.0-53.0); HGB 12.4 gm/dL (13.0-17.5); Lymphocytes # (A) 0.8 k/uL (1.0-4.8); Lymphocytes % (A) 10 %; MCH 29.4 pg (25.0-35.0); MCHC 32.4 g/dL (31.0-37.0); MCV 90.7 fL (80.0-100.0); Monocytes # (A) 0.5 k/uL (0-1.0); Monocytes % (A) 7 %; Neutrophils # (A) 6.2 k/uL (1.3-7.7); Neutrophils % (A) 77 %; Platelet Count 280 k/uL (150-450); RBC 4.23 m/uL (4.30-5.90); RDW 14.9 % (11.5-15.5)
[2019-12-04 10:13] LABS: Partial Thromboplastin Time 44.5 sec (22.0-30.0)
--- NOTE | 2019-12-04 10:14 | ED ---
Male Urogenital HPI - General Chief complaint: Urogenital Stated complaint: blood in urine Time Seen by Provider: 12/04/19 09:19 Source: patient, EMS Mode of arrival: EMS Limitations: no limitations - History of Present Illness Initial comments: 64-year-old male presents today for chief complaint of blood in his urine. Patient states he was recently discharged from [address] [place] [address] on November 22 after extensive stay for aspiration pneumonia secondary to a complication from abdominal surgery in regards to his esophageal/stomach cancer. Patient states th at during stay he went into atrial fibrillation and also was found to have a portal vein thrombosis. Patient states that he has been feeling much better. Patient states he was bridged from lovenox to coumadin recently. But states that his last two INR has been supratherapeutic at 5.2 and 4.9 he states he has not been holding his Coumadin. Patient states he woke up this morning with a significant large [place] bright red blood. Patient denies any urinary retention denies any lower abdominal discomfort denies any fevers. Patient denies any flank or back pain denies abdominal pain nausea vomiting patient is no additional complaints patient does state that he has a known left renal mass. Patient upon arrival is hemodynamically stable and does not appear in distress. - Related Data Home Medications Medication Instructions Recorded Confirmed Aspirin [Adult Low Dose Aspirin EC] 81 mg PEG/G-TUBE DAILY 09/29/17 12/04/19 Enoxaparin [Lovenox] 60 mg SQ Q12H 12/04/19 12/04/19 Omeprazole 20 mg PEG/G-TUBE DAILY 12/04/19 12/04/19 Terazosin [Hytrin] 1 mg PEG/G-TUBE HS 12/04/19 12/04/19 Warfarin [Coumadin] 5 mg PEG/G-TUBE HS 12/04/19 12/04/19 Allergies Allergy/AdvReac Type Severity Reaction Status Date / Time No Known Allergies Allergy Verified 12/04/19 10:58 Review of Systems ROS Statement: Those systems with pertinent positive or pertinent negative responses have been documented in the HPI. ROS Other: All systems not noted in ROS Statement are negative. Past Medical History Past Medical History: Atrial Fibrillation, Cancer, Pneumonia, Seizure Disorder, Sleep Apnea/CPAP/BIPAP Additional Past Medical History / Comment(s): DYSPHAGIA, HX OF ESOPHAGEAL CA,ESOPHAGUS RECONSTRUCTED, CHEMO AND RADIATION 2017, past hx. 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 ago-residual short term memory impairment, & comprehension, balance problems @times,LEFT SIDED "NEGLECT" HX OF SEIZURE POST ANEURYSM, l. heel wound, DOESN'T USE CPAP, LEFT HEEL WOUND HEALING, WEARS SPECIAL SHOE DAYTIME, AND BOOT AT NIGHT. HAD DEBRIDEMENT OF LEFT HEEL IN WOUND CENTER, USING WHEELCHAIR OR CANE; RIGHT KIDNEY MASS-DR MONITORING History of Any Multi-Drug Resistant Organisms: None Reported Past Surgical History: Cholecystectomy, Joint Replacement Additional Past Surgical History / Comment(s): PARTIAL LEFT HIP REPLACEMENT, RECONSTRUCTION OF ESOPHAGUS, repair of aneurysm w/clip, has brain shunt-not sure if still functions, repair torn retina Past Anesthesia/Blood Transfusion Reactions: Previous Problems w/ Anesthesia Additional Past Anesthesia/Blood Transfusion Reaction / Comment(s): very slow to wake up-doesn't need much per spouse Past Psychological History: Anxiety Past Alcohol Use History: Rare Past Drug Use History: None Reported - Past Family History Mother Family Medical History: Unable to Obtain General Exam - General Exam Comments Initial Comments: General: The patient is awake and alert, in no distress Eye: +3 mm pupils are equal, round and reactive to light, extra-ocular movements are intact. No nystagmus. There is normal conjunctiva bilaterally. No signs of icterus. Ears, nose, mouth and throat: There are moist mucous membranes and no oral lesions. Neck: The neck is supple, there is no tenderness or JVD. Cardiovascular: There is a regular rate and rhythm. No murmur, rub or gallop is appreciated. Respiratory: Lungs are clear to auscultation, respirations are non-labored, breath sounds are equal. No wheezes, stridor, rales, or rhonchi. Musculoskeletal: Normal ROM, no tenderness. Strength 5/5. Sensation intact. Radial pulses equal bilaterally 2+. Neurological: A&O x 3. CN II-XII intact grossly, There are no obvious motor or sensory deficits. Coordination appears grossly intact. Speech is normal. Skin: Skin is warm and dry and no rashes or lesions are noted. Psychiatric: Cooperative, appropriate mood & affect, normal judgment. Limitations: no limitations Course Vital Signs 12/04/19 12/04/19 12/04/19 09:20 10:49 12:14 Temperature 97.0 F L 97.1 F L Pulse Rate 72 73 70 Respiratory 16 18 16 Rate Blood Pressure 115/78 116/76 121/81 O2 Sat by Pulse 96 98 98 Oximetry Medical Decision Making - Medical Decision Making 64yo male presenting for blood in urine, there is blood and urine mixed on sample no clots. Patient HgB stable. BP stable. No tachycardia. Denies syncope, presyncope. Patient evaluated by Dr. bess who attempted contacting patient prescriber of coumadin Griffin Peters who was in surgery. He called back recommended transfer to [facility] to medicine. Patient is agreeable to transfer and care plan. Dr. Josue accepted transfer he is IM physician for continuity of care. - Lab Data Result diagrams: 12/04/19 09:41 12/04/19 09:41 Lab Results 12/04/19 12/04/19 12/04/19 Range/Units 09:41 09:41 09:41 WBC 8.0 (3.8-10.6) k/uL RBC 4.23 L (4.30-5.90) m/uL Hgb 12.4 L (13.0-17.5) gm/dL Hct 38.3 L (39.0-53.0) % MCV 90.7 (80.0-100.0) fL MCH 29.4 (25.0-35.0) pg MCHC 32.4 (31.0-37.0) g/dL RDW 14.9 (11.5-15.5) % Plt Count 280 (150-450) k/uL Neutrophils % 77 % Lymphocytes % 10 % Monocytes % 7 % Eosinophils % 5 % Basophils % 0 % Neutrophils # 6.2 (1.3-7.7) k/uL Lymphocytes # 0.8 L (1.0-4.8) k/uL Monocytes # 0.5 (0-1.0) k/uL Eosinophils # 0.4 (0-0.7) k/uL Basophils # 0.0 (0-0.2) k/uL PT 55.8 H (9.0-12.0) sec INR 5.5 H* (<1.2) APTT 44.5 H (22.0-30.0) sec Sodium 138 (137-145) mmol/L Potassium 5.1 (3.5-5.1) mmol/L Chloride 101 (98-107) mmol/L Carbon Dioxide 29 (22-30) mmol/L Anion Gap 8 mmol/L BUN 20 (9-20) mg/dL Creatinine 0.54 L (0.66-1.25) mg/dL Est GFR (CKD-EPI)AfAm >90 (>60 ml/min/1.73 sqM) Est GFR (CKD-EPI)NonAf >90 (>60 ml/min/1.73 sqM) Glucose 97 (74-99) mg/dL Calcium 9.0 (8.4-10.2) mg/dL Total Bilirubin 0.5 (0.2-1.3) mg/dL AST 32 (17-59) U/L ALT 26 (4-49) U/L Alkaline Phosphatase 82 (38-126) U/L Total Protein 7.1 (6.3-8.2) g/dL Albumin 3.8 (3.5-5.0) g/dL Urine Color Urine Appearance (Clear) Urine pH (5.0-8.0) Ur Specific [place] (1.001-1.035) Urine Protein (Negative) Urine Glucose (UA) (Negative) Urine Ketones (Negative) Urine Blood (Negative) Urine Nitrite (Negative) Urine Bilirubin (Negative) Urine Urobilinogen (<2.0) mg/dL Ur Leukocyte Esterase (Negative) Urine RBC (0-5) /hpf Urine WBC (0-5) /hpf Amorphous Sediment (None) /hpf Urine Bacteria (None) /hpf Urine Mucus (None) /hpf Blood Type Blood Type Recheck Bld Type Recheck Status Antibody Screen Spec Expiration Date 12/04/19 12/04/19 Range/Units 09:45 09:58 WBC (3.8-10.6) k/uL RBC (4.30-5.90) m/uL Hgb (13.0-17.5) gm/dL Hct (39.0-53.0) % MCV (80.0-100.0) fL MCH (25.0-35.0) pg MCHC (31.0-37.0) g/dL RDW (11.5-15.5) % Plt Count (150-450) k/uL Neutrophils % % Lymphocytes % % Monocytes % % Eosinophils % % Basophils % % Neutrophils # (1.3-7.7) k/uL Lymphocytes # (1.0-4.8) k/uL Monocytes # (0-1.0) k/uL Eosinophils # (0-0.7) k/uL Basophils # (0-0.2) k/uL PT (9.0-12.0) sec INR (<1.2) APTT (22.0-30.0) sec Sodium (137-145) mmol/L Potassium (3.5-5.1) mmol/L Chloride (98-107) mmol/L Carbon Dioxide (22-30) mmol/L Anion Gap mmol/L BUN (9-20) mg/dL Creatinine (0.66-1.25) mg/dL Est GFR (CKD-EPI)AfAm (>60 ml/min/1.73 sqM) Est GFR (CKD-EPI)NonAf (>60 ml/min/1.73 sqM) Glucose (74-99) mg/dL Calcium (8.4-10.2) mg/dL Total Bilirubin (0.2-1.3) mg/dL AST (17-59) U/L ALT (4-49) U/L Alkaline Phosphatase (38-126) U/L Total Protein (6.3-8.2) g/dL Albumin (3.5-5.0) g/dL Urine Color Red Urine Appearance Cloudy (Clear) Urine pH 7.5 (5.0-8.0) Ur Specific [place] 1.016 (1.001-1.035) Urine Protein 1+ H (Negative) Urine Glucose (UA) Negative (Negative) Urine Ketones Negative (Negative) Urine Blood Large H (Negative) Urine Nitrite Negative (Negative) Urine Bilirubin Negative (Negative) Urine Urobilinogen <2.0 (<2.0) mg/dL Ur Leukocyte Esterase Small H (Negative) Urine RBC >182 H (0-5) /hpf Urine WBC 6 H (0-5) /hpf Amorphous Sediment Rare H (None) /hpf Urine Bacteria Rare H (None) /hpf Urine Mucus Rare H (None) /hpf Blood Type A Positive Blood Type Recheck A Pos Bld Type Recheck Status No Antibody Screen NEGATIVE Spec Expiration Date 12/07/2019 - 2344 Disposition Clinical Impression: Hematuria, Supratherapeutic INR, Renal mass Disposition: OTHER INSTITUTION NOT DEFINED Condition: Stable Instructions (If sedation given, give patient instructions): Hematuria (ED) Additional Instructions: . Is patient prescribed a controlled substance at d/c from ED?: No Referrals: Lui Hogan MD [REFERRING] - 1-2 days Time of Disposition: 11:56 - Out of Hospital Transfer - Req. Specs Out of Hospital Transfer - Requested Specifics: Other Non-Acute ([facility] Medicine team-accepted by)
[2019-12-04 10:15] LABS: Amorphous Sediment,Urine Rare /hpf; Appearance,Urine Cloudy (Clear); Bacteria,Urine Rare /hpf; Bilirubin,Urine Negative (Negative); Blood,Urine Large (Negative); Color,Urine Red; Glucose,Urine (UA) Negative (Negative); Ketones,Urine Negative (Negative); Leukocyte Esterase,Urine Small (Negative); Mucus,Urine Rare /hpf; Nitrite,Urine Negative (Negative); PH, Urine 7.5 (5.0-8.0); Protein,Urine 1+ (Negative); RBC,Urine >182 /hpf (0-5); Specific Gravity,Urine 1.016 (1.001-1.035); Urobilinogen,Urine <2.0 mg/dL (<2.0); WBC,Urine 6 /hpf (0-5)
[2019-12-04 10:18] LABS: Prothrombin Time 55.8 sec (9.0-12.0)
[2019-12-04 10:33] LABS: ALT 26 U/L (4-49); AST 32 U/L (17-59); African American GFR (CKD) >90 (>60 ml/min/1.73 sqM); Albumin 3.8 g/dL (3.5-5.0); Alkaline Phosphatase 82 U/L (38-126); Anion Gap 8 mmol/L; Blood Urea Nitrogen 20 mg/dL (9-20); Carbon Dioxide 29 mmol/L (22-30); Chloride 101 mmol/L (98-107); Glucose 97 mg/dL (74-99); Non-African American GFR(CKD) >90 (>60 ml/min/1.73 sqM); Potassium 5.1 mmol/L (3.5-5.1); Sodium 138 mmol/L (137-145); Total Bilirubin 0.5 mg/dL (0.2-1.3); Total Protein 7.1 g/dL (6.3-8.2)
[2019-12-04 10:47] LABS: INR 5.5 (<1.2)
--- NOTE | 2019-12-04 10:50 | US ---
EXAMINATION TYPE: US renals and bladder DATE OF EXAM: 12/04/2019 COMPARISON: CT 11/10/19 CLINICAL HISTORY: hematuria. EXAM MEASUREMENTS: Right Kidney: 10.3 x 5.6 x 4.2 cm Left Kidney: 11.8 x 5.2 x 4.4 cm Post Void Residual Volume: Not measured Right Kidney: There is a 3.2 x 2.7 x 2.6 cm solid renal mass with internal color flow, which is mildl y hyperechoic. No hydronephrosis. No nephrolithiasis. Left Kidney: No hydronephrosis or masses seen. No nephrolithiasis. Bladder: 2 areas of lateral layering echogenicity within bladder bilaterally. Bilateral Jets seen: Yes IMPRESSION: 1. Right renal lower pole 3.2 x 2.7 x 2.6 cm solid mass likely represents neoplasm with differential including renal cell carcinoma and oncocytoma. Recommend follow-up MRI renal mass protocol for furthe r characterization. 2. Layering echogenicity within the lateral recesses of the urinary bladder bilaterally. Findings may represent layering debris/blood product within the urine, with symmetric solid masses less likely. R ecommend urology consultation.
[2019-12-04 12:17] VITALS: BP 121/81; PULSE 70; RESP 16; TEMP 97.1
== END 2019-12-04 14:08 | disposition other institution (70) ==
LOC: EC 09:18
DX: R31.9 Hematuria, unspecified (principal); N28.89 Other specified disorders of kidney and ureter; G47.30 Sleep apnea, unspecified; R79.1 Abnormal coagulation profile; I81 Portal vein thrombosis; Z79.82 Long term (current) use of aspirin; Z79.01 Long term (current) use of anticoagulants; Z79.899 Other long term (current) drug therapy; Z96.642 Presence of left artificial hip joint; Z99.89 Dependence on other enabling machines and devices; Z85.01 Personal history of malignant neoplasm of esophagus
CPT/HCPCS: 36415; 76770; 80053; 81001; 85025; 85610; 85730; 86850; 86900; 86901; 99285

== ENCOUNTER → 2019-12-26 | Outpatient (CLI) | payer MEDICARE, BC ==
[2019-12-26 14:07] LABS: African American GFR (CKD) >90 (>60 ml/min/1.73 sqM); Anion Gap 8 mmol/L; Blood Urea Nitrogen 16 mg/dL (9-20); Calcium 9.1 mg/dL (8.4-10.2); Carbon Dioxide 25 mmol/L (22-30); Chloride 102 mmol/L (98-107); Glucose 91 mg/dL (74-99); Non-African American GFR(CKD) >90 (>60 ml/min/1.73 sqM); Potassium 4.3 mmol/L (3.5-5.1); Sodium 135 mmol/L (137-145)
[2019-12-26 14:08] LABS: Basophils # (A) 0.1 k/uL (0-0.2); Basophils % (A) 1 %; Eosinophils # (A) 0.3 k/uL (0-0.7); Eosinophils % (A) 4 %; HGB 12.7 gm/dL (13.0-17.5); Hypochromasia Slight; Lymphocytes # (A) 1.1 k/uL (1.0-4.8); Lymphocytes % (A) 15 %; MCH 28.5 pg (25.0-35.0); MCV 91.8 fL (80.0-100.0); Mean Platelet Volume 6.8; Monocytes # (A) 0.5 k/uL (0-1.0); Monocytes % (A) 7 %; Neutrophils # (A) 5.3 k/uL (1.3-7.7); Neutrophils % (A) 72 %; Platelet Count 328 k/uL (150-450); RBC 4.47 m/uL (4.30-5.90); RDW 14.6 % (11.5-15.5); WBC 7.4 k/uL (3.8-10.6)
== END | disposition home or self-care (01) ==
LOC: LABPAT 12:55
PROVIDERS: ATTEND Urology
DX: Z01.818 Encounter for other preprocedural examination (principal); D41.01 Neoplasm of uncertain behavior of right kidney; R58 Hemorrhage, not elsewhere classified; R35.0 Frequency of micturition
CPT/HCPCS: 36415; 80048; 85025; 86850; 86900; 86901; 87086

== ENCOUNTER → 2020-01-01 | Outpatient (CLI) | payer MEDICARE, BC ==
--- NOTE | 2020-01-01 15:51 | XR ---
EXAMINATION TYPE: XR chest 2V DATE OF EXAM: 01/01/2020 COMPARISON: 11/13/2019 TECHNIQUE: PA and lateral views submitted. HISTORY: Cough FINDINGS: ALLERGIST/IMMUNOLOGIST PHYSICIAN shunt catheter noted there is left-sided consolidation and small effusion. Underlying CO PD noted. Heart size normal. No pneumothorax. Hypertrophic and degenerative change of the spine. IMPRESSION: 1. COPD with left lower lobe infiltrate and small effusion.
== END | disposition home or self-care (01) ==
LOC: RADXRMAIN 14:48
PROVIDERS: ATTEND Urology
DX: J44.9 Chronic obstructive pulmonary disease, unspecified (principal); J90 Pleural effusion, not elsewhere classified; R91.8 Other nonspecific abnormal finding of lung field
CPT/HCPCS: 71046

== ENCOUNTER 2020-01-04 14:16 | Day surgery (SDC) | payer MEDICARE, BC ==
--- NOTE | 2020-01-03 16:20 | P.HPIHPCON ---
History of Present Illness H&P Date: 01/04/20 Chief Complaint: right sided renal mass Mr Britton is a 64 yo male with hx of 3.1 cm lower pole right sided renal mass. We discussed with her the option of radical nephrectomy, partial nephrectomy, cryoablation and observations. Discussed with her the risk and benefit of each approach. He agreed to proceed with robotic assisted partial nephrectomy. Of note she has history of multiple abdominal surgeries and hx of shunt placement in the past. Given his previous surgical history the option of reteroperitoneal approach was discussed with him. I discussed with him potential of conversion to open, potential of doing a radical nephrectomy. I also discussed potential of co nverting to transperitoneal approach. Discussed risk of bowel injury and injury to nearby organ with transperitoneal conversion. Discussed risk of bleeding, infection, delayed complication and risk from anesthesia Consent for Procedure: I have explained the operation/procedure to the patient, including the risks, benefits, side effects, alternative therapies (including not receiving the proposed treatment or service), the likelihood of the patient achieving his/her goals, and potential recuperation problems for the procedure/sedation/analgesia, as well as any blood products, if indicated. I also explained to the patient the risks, benefits and side effects of the alternatives, as well as the risks related to not receiving the proposed procedure, care, treatment, or services. - Constitutional Constitutional: Denies chills, Denies fever Past Medical History Past Medical History: Atrial Fibrillation, Cancer, GERD/Reflux, Hypertension, Memory Impairment, Pneumonia, Prostate Disorder, Seizure Disorder, Sleep Apnea/CPAP/BIPAP Additional Past Medical History / Comment(s): Dysphagia, Hx Esophageal Cancer, was Reconstructed (Chemo/Radiation 2016) - aspiration Pneumonia x3, has hiatal hernia, J-tube - gets Jevity tube feed. A-Fib x2. Hx cerebral aneurysm rupture 1994 est, has shunt - residual short term memory impairment/comprehension/balance problems @ times, Lt sided neglect, hx petit mal seizure - last 1999. Hx blood in urine, d/c'd Coumadin 12/12/19. HTN Rx d/c'd. RT Kidney mass current, mesenteric venous thrombosis. Able to eat small amounts of liquids, soft strained foods very slowly. History of Any Multi-Drug Resistant Organisms: None Reported Past Surgical History: Cholecystectomy, Joint Replacement Additional Past Surgical History / Comment(s): Hx fx Lt hip - Partial Lt Hip Replacement. Reconstruction of Esophagus [id number]. Repair of Aneurysm w/clip, has Brain Shunt - not sure if still functions, Repair Torn Retina. PEG tubes x3; J-tube placed 11/2019. Past Anesthesia/Blood Transfusion Reactions: Previous Problems w/ Anesthesia, Motion Sickness Additional Past Anesthesia/Blood Transfusion Reaction / Comment(s): Very slow to wake up - doesn't need much per spouse. Smoking Status: Former smoker - Past Family History Mother Family Medical History: Myocardial Infarction (NC), Osteoarthritis (OA) Medications and Allergies Home Medications Medication Instructions Recorded Confirmed Type Aspirin [Adult Low Dose Aspirin EC] 81 mg PO DAILY 09/29/17 12/28/19 History Omeprazole 20 mg PO DAILY 12/04/19 12/28/19 History Terazosin [Hytrin] 1 mg PEG/G-TUBE HS 12/04/19 12/28/19 History Cyanocobalamin (Vitamin B-12) 1,000 mcg SL DAILY 12/28/19 12/28/19 History [Vitamin B-12] Lactose-Reduced Food/Fiber [Jevity 1,200 ml PEJ/J-TUBE DIRECTED 12/28/19 12/28/19 History 1.2 Ayaan Liquid] Multivitamins, Thera [Multivitamin 1 tab PO DAILY 12/28/19 12/28/19 History (formulary)] Allergies Allergy/AdvReac Type Severity Reaction Status Date / Time No Known Allergies Allergy Verified 12/28/19 10:56 Surgical - Exam - General well developed, well nourished - Eyes normal ocular movement - Respiratory normal expansion, normal respiratory effort - Abdomen Abdomen: soft, non tender Assessment and Plan Assessment: 64 yo with hx of right sided renal mass -OR for robotic partial nephrectomy on right (reteroperitoneal approach
[2020-01-04] MEDS: LACTATED RINGERS 1,000 ML IV SCH (10:30)
[2020-01-04 11:15] LABS: INR 1.3 (<1.2); Prothrombin Time 13.4 sec (9.0-12.0)
--- NOTE | 2020-01-04 13:40 | P.OP ---
Date of Procedure: 01/04/20 Preoperative Diagnosis: Right lower pole renal mass Postoperative Diagnosis: Right lower pole renal mass Procedure(s) Performed: Robotic right retroperitoneal partial nephrectomy Intraoperative ultrasound examination of the kidney Interpretation of intraoperative ultrasound examination of the kidney Implants: None Anesthesia: ALPHONSE Surgeon: India Pablo Estimated Blood Loss (ml): 50 IV fluids (ml): 200 Urine output (ml): 75 Pathology: other (Right renal mass) Condition: stable Disposition: PACU Indications for Procedure: Right lower pole renal mass enhancing suspicious for malignancy Operative Findings: 2 renal arteries, one at the lower pole and one in the upper pole. Early branching of the upper pole renal artery. Large posterior lower pole renal mass Description of Procedure: The patient elected to undergo a robotic right retroperitoneal partial nephrectomy for a large right lower pole renal mass. All risks and complicatio ns were explained to him including bleeding, urine leak, need for nephrectomy, vascular, bowel injury. he signed a written informed consent. he was taken to the OR and administered general anesthesia. he was placed in right lateral position. he was well taped to the operating table and the operating table was flexed to open up the flank area. Parts were prepped and draped. A 1 cm incision was made at the midpoint of the iliac crest and slightly above it. This was deepened down to the fascia. Using a hemostat the muscles of the flank was split to enter the retroperitoneum. A finger was used to enlarge this incision and a space was created for the balloon dissector. The balloon dissector was then introduced through the opening into the retroperitoneum and a retroperitoneal space was developed. The balloon dissector was removed and a 12 mm balloon cinch port was placed. The 8 mm robotic camera was then placed through the port and the retroperitoneal space was visualized. Using a Kitner dissector the space was dissected out to place additional ports. 3 other robotic 8 mm ports were placed in a line in the subcostal margin. The robot was docked. The psoas muscle was dissected and the plane was mobilized. Using the fourth arm the kidney was headed towards the anterior abdominal wall while the perinephric fascia and fat was dissected. Attention was then directed to the renal hilum where a single renal artery was dissected and circumferentially mobilized. Care was taken to avoid injury to the renal vein or the ureter. Attention was then directed to the upper pole and the fat was reflected off the upper pole of the kidney. Our dissection was continued to the anterior surface of the kidney and the tumor was identified Intraoperative Ultrasound was then used. The renal mass was clearly visualized by ultrasound and marked out. No additional tumors were seen on evaluation of the kidney with the ultrasound. Mannitol was administered 12.5 g and the renal artery was controlled with 2 bulldog clamps. Using a monopolar scissor and bipolar forceps the renal tumor was then completely excised with minimal bleeding. The renal mass was placed in an Endo Catch bag towards the lower end of the space. The monopolar scissors was replaced with a needle explosives truck driver and the renorrhaphy was performed in 2 layers. A deep layer of 3-0 v loc was used to approximate the deep layer. This was held in place with a Hemolok clip on the outside capsule of the kidney. The outer renorrhaphy they were both performed using 3 separate sutures of 2-0 v loc that were held in place with Hem-o-tomás clips. At the end of the Renorrhaphy there was good approximation of the 2 edges of the defect. The bulldog clamps were then removed and the defect was observed for bleeding. There was no bleeding from the renorrhaphy area. Hemostasis was adjunctive with Tisseel and Surgicel. Hemostasis was reconfirmed and a drain was placed through the posterior 8 mm port. The robotic instruments were removed and the robot was de-docked. The bed was deflexed and the incisions were closed in layers. The 12 mm port was closed with a 0 Vicryl interrupted suture and skin was closed with 4-0 Monocryl. The patient tolerated the procedure well and was taken to recovery in stable condition
[2020-01-04] MEDS: HYDROmorphone 0.5 MG/0.5 ML SYRINGE IVP PRN ×3 (14:11→14:31)
[~2020-01-04 14:16] MED LIST changes: +BUPIVACAINE (PF) 0.5% 30 ML VIAL SQ ONE; +DEXAMETHASONE SOD PHOSPHATE 10 MG/ML 1 ML VIAL IV ONE; +GLYCOPYRROLATE 0.2 MG/ML 2 ML VIAL ONE; +LACTATED RINGERS 1,000 ML IV ONE; -LACTATED RINGERS 1,000 ML IV SCH; +LIDOCAINE 1% (10MG/ML) FOR IV START INTRADERMA ONE; -LIDOCAINE 1% 20 ML VIAL (10MG/ML) FOR IV START INTRADERMA PRN; +LIDOCAINE 1% INJ 10MG/ML (20 ML MDV) ONE; +MANNITOL 25% 12.5 GM/50 ML VIAL ONE; +MIDAZOLAM 2 MG/2 ML VIAL IV PRN; +MIDAZOLAM 2 MG/2 ML VIAL ONE; +NEOSTIGMINE 1 MG/ML 10 ML VIAL ONE; +ONDANSETRON 4 MG/2 ML VIAL IVP ONE; +ONDANSETRON 4 MG/2 ML VIAL ONE; +PROPOFOL 10 MG/ML 20 ML VIAL IV ONE; +ROCURONIUM BROMIDE 10 MG/ML 5 ML VIAL IV ONE; +SCOPOLAMINE 1.5MG/72HR PATCH TRANSDERM ONE; +SUCCINYLCHOLINE CHLORIDE 100 MG/5 ML SYR IV ONE; +fentaNYL (PF) 50 MCG/ML 2 ML AMP ONE
[2020-01-04] MEDS ORDERED: KETOROLAC 15 MG/ML 1 ML VIAL IVP ONE (15:47)
[2020-01-04 17:32] LABS: HCT 41.3 % (39.0-53.0); HGB 13.1 gm/dL (13.0-17.5); MCH 28.7 pg (25.0-35.0); MCHC 31.8 g/dL (31.0-37.0); MCV 90.4 fL (80.0-100.0); Mean Platelet Volume 7.2; Platelet Count 205 k/uL (150-450); RBC 4.56 m/uL (4.30-5.90); RDW 14.8 % (11.5-15.5); WBC 13.7 k/uL (3.8-10.6)
[2020-01-04 17:59] LABS: ALT 17 U/L (4-49); AST 33 U/L (17-59); African American GFR (CKD) >90 (>60 ml/min/1.73 sqM); Albumin 3.9 g/dL (3.5-5.0); Alkaline Phosphatase 122 U/L (38-126); Anion Gap 8 mmol/L; Blood Urea Nitrogen 13 mg/dL (9-20); Calcium 9.1 mg/dL (8.4-10.2); Carbon Dioxide 23 mmol/L (22-30); Chloride 103 mmol/L (98-107); Glucose 125 mg/dL (74-99); Non-African American GFR(CKD) >90 (>60 ml/min/1.73 sqM); Potassium 4.3 mmol/L (3.5-5.1); Sodium 134 mmol/L (137-145); Total Bilirubin 0.6 mg/dL (0.2-1.3)
[2020-01-04] MEDS ORDERED: ONDANSETRON 4 MG/2 ML VIAL IVP PRN (22:00)
[2020-01-04] MEDS ORDERED: HYDROmorphone 1 MG/ML 1 ML SYRINGE IVP PRN (22:00)
[2020-01-04] MEDS: DEXTROSE 5%-0.45% NACL 1,000 ML IV SCH (22:08)
[2020-01-05] MEDS ORDERED: KETOROLAC 30 MG/ML 1 ML VIAL IVP PRN
[2020-01-05] MEDS: DEXTROSE 5%-0.45% NACL 1,000 ML IV SCH ×3 (05:45→21:26)
[2020-01-05] MEDS: LACTATED RINGERS 1,000 ML IV SCH (05:46)
[2020-01-05 07:56] LABS: HCT 43.9 % (39.0-53.0); HGB 13.7 gm/dL (13.0-17.5); Hypochromasia Moderate; MCH 29.3 pg (25.0-35.0); MCHC 31.2 g/dL (31.0-37.0); Platelet Count 183 k/uL (150-450); RBC 4.67 m/uL (4.30-5.90); RDW 14.7 % (11.5-15.5)
[2020-01-05 08:31] LABS: WBC 13.7 k/uL (3.8-10.6)
[2020-01-05] MEDS: CYANOCOBALAMIN 500 MCG TAB PO SCH (10:08)
[2020-01-05] MEDS: PANTOPRAZOLE 40 MG TABLET PO SCH (10:08)
[2020-01-05] MEDS: MULTIVITAMINS, THERA 1 EACH TAB PO SCH (10:08)
--- NOTE | 2020-01-05 10:39 | P.PN ---
Subjective Progress Note Date: 01/05/20 Principal diagnosis: Right renal mass The patient is comfortable. He tolerated clear liquid diet this morning. His Magallon catheter is draining clear yellow urine. He has not ambulated. He has no complaints. Objective - Vital Signs Vital signs: Vital Signs Temp 97.7 F 01/05/20 07:17 Pulse 80 01/05/20 07:17 Resp 16 01/05/20 07:17 BP 128/76 01/05/20 07:17 Pulse Ox 95 01/05/20 07:17 Intake & Output 01/04/20 01/05/20 01/05/20 18:59 06:59 18:59 Intake Total 1100 Output Total 600 1100 Balance 500 -1100 Weight 63.2 kg Intake: IV 1100 Output: Urine 550 1100 Estimated Blood Loss 50 Other: Voiding Method Indwelling Catheter - Constitutional General appearance: Present: average body habitus, no acute distress - Gastrointestinal Gastrointestinal Comment(s): Soft, non-distended. Incisions clean, dry, and intact. - Psychiatric Psychiatric: Present: appropriate affect - Labs CBC & Chem 7: 01/05/20 06:40 01/04/20 17:25 Labs: Abnormal Lab Results - Last 24 Hours (Table) 01/04/20 01/04/20 01/04/20 Range/Units 11:00 17:25 17:25 WBC 13.7 H (3.8-10.6) k/uL PT 13.4 H (9.0-12.0) sec INR 1.3 H (<1.2) Sodium 134 L (137-145) mmol/L Creatinine 0.46 L (0.66-1.25) mg/dL Glucose 125 H (74-99) mg/dL 01/05/20 Range/Units 06:40 WBC 13.7 H (3.8-10.6) k/uL PT (9.0-12.0) sec INR (<1.2) Sodium (137-145) mmol/L Creatinine (0.66-1.25) mg/dL Glucose (74-99) mg/dL Assessment and Plan (1) Renal mass, right Current Visit: No Status: Acute Priority: Low Code(s): N28.89 - OTHER SPECIFIED DISORDERS OF KIDNEY AND URETER SNOMED Code(s): 851929114 Plan: Remove Magallon catheter. Ambulate. Advance diet. Anticipate discharge home later today or tomorrow morning. The KEAGAN drain will be removed prior to discharge.
[2020-01-05] MEDS ORDERED: ACETAMINOPHEN TAB 500 MG TAB PO PRN (19:57)
[2020-01-05] MEDS ORDERED: HYDROcodone/APAP 5-325MG 1 EACH TAB PO PRN (19:57)
[2020-01-05] MEDS ORDERED: ONDANSETRON 4 MG TAB PO PRN (20:17)
[2020-01-06 03:17] VITALS: PULSE 79; RESP 20
[2020-01-06] MEDS: DEXTROSE 5%-0.45% NACL 1,000 ML IV SCH (05:16)
[2020-01-06] MEDS: LACTATED RINGERS 1,000 ML IV SCH (05:16)
[2020-01-06 07:18] LABS: ALT 15 U/L (4-49); AST 27 U/L (17-59); African American GFR (CKD) >90 (>60 ml/min/1.73 sqM); Albumin 3.4 g/dL (3.5-5.0); Alkaline Phosphatase 90 U/L (38-126); Anion Gap 7 mmol/L; Blood Urea Nitrogen 13 mg/dL (9-20); Calcium 8.6 mg/dL (8.4-10.2); Carbon Dioxide 27 mmol/L (22-30); Chloride 102 mmol/L (98-107); Glucose 126 mg/dL (74-99); Non-African American GFR(CKD) >90 (>60 ml/min/1.73 sqM); Sodium 136 mmol/L (137-145); Total Bilirubin 0.5 mg/dL (0.2-1.3); Total Protein 6.4 g/dL (6.3-8.2)
[2020-01-06] MEDS: PANTOPRAZOLE 40 MG TABLET PO SCH (07:26)
[2020-01-06] MEDS: MULTIVITAMINS, THERA 1 EACH TAB PO SCH (07:26)
[2020-01-06] MEDS: CYANOCOBALAMIN 500 MCG TAB PO SCH (07:26)
--- NOTE | 2020-01-06 07:27 | P.DS ---
Providers Date of admission: 01/04/20 09:10 Attending physician: India Pablo Primary care physician: [facility] Course: The patient underwent a right partial nephrectomy by [facility] and Samy 48 hours ago. He has done well postoperatively. His pain has been under control. His diet is been tolerated. The drain has been removed. His abdomen is soft. He'll be discharged home later today. He'll follow-up in the office in one week. Postoperative instructions been given to the . He'll be given a prescription of [place]. Pathology report is pending. His condition is good. Patient Condition at Discharge: Good Plan - Discharge Summary Discharge Rx Participant: No New Discharge Prescriptions: New HYDROcodone/APAP 5-325MG [[place] 5-325] 1 tab PO Q4HR PRN #10 tab PRN Reason: Pain No Action Aspirin [Adult Low Dose Aspirin EC] 81 mg PO DAILY Terazosin [Hytrin] 1 mg PEG/G-TUBE HS Omeprazole 20 mg PO DAILY Multivitamins, Thera [Multivitamin (formulary)] 1 tab PO DAILY Cyanocobalamin (Vitamin B-12) [Vitamin B-12] 1,000 mcg SL DAILY Lactose-Reduced Food/Fiber [Jevity 1.2 Ayaan Liquid] 1,200 ml PEJ/J-TUBE DIRECTED Discharge Medication List Aspirin [Adult Low Dose Aspirin EC] 81 mg PO DAILY 09/29/17 [History] Omeprazole 20 mg PO DAILY 12/04/19 [History] Terazosin [Hytrin] 1 mg PEG/G-TUBE HS 12/04/19 [History] Cyanocobalamin (Vitamin B-12) [Vitamin B-12] 1,000 mcg SL DAILY 12/28/19 [History] Lactose-Reduced Food/Fiber [Jevity 1.2 Ayaan Liquid] 1,200 ml PEJ/J-TUBE DIRECTED 12/28/19 [History] Multivitamins, Thera [Multivitamin (formulary)] 1 tab PO DAILY 12/28/19 [History] HYDROcodone/APAP 5-325MG [[place] 5-325] 1 tab PO Q4HR PRN #10 tab 01/06/20 [Rx] Follow up Appointment(s)/Referral(s): Medhat Rose MD [STAFF PHYSICIAN] - 1 Week Discharge Disposition: HOME SELF-CARE
[2020-01-06 08:27] VITALS: BP 126/85; TEMP 99
== END 2020-01-06 13:14 | disposition home or self-care (01) ==
LOC: OR 14:16 → 2ORMAIN 15:21 → 4SSUR 15:21 → OR 01-06 13:14 → UNDODISIN 01-06 13:14
PROVIDERS: ATTEND Urology
DX: C64.1 Malignant neoplasm of right kidney, except renal pelvis (principal); I48.91 Unspecified atrial fibrillation; I10 Essential (primary) hypertension; K21.9 Gastro-esophageal reflux disease without esophagitis; R41.3 Other amnesia; N30.01 Acute cystitis with hematuria; G40.909 Epilepsy, unspecified, not intractable, without status epilepticus; N42.9 Disorder of prostate, unspecified; I73.9 Peripheral vascular disease, unspecified; G47.30 Sleep apnea, unspecified; Z87.01 Personal history of pneumonia (recurrent); Z85.01 Personal history of malignant neoplasm of esophagus; Z92.21 Personal history of antineoplastic chemotherapy; Z92.3 Personal history of irradiation; Z90.49 Acquired absence of other specified parts of digestive tract; Z96.642 Presence of left artificial hip joint; Z87.891 Personal history of nicotine dependence; Z99.89 Dependence on other enabling machines and devices; Z79.82 Long term (current) use of aspirin; Z79.899 Other long term (current) drug therapy; Z98.49 Cataract extraction status, unspecified eye; Z98.890 Other specified postprocedural states; Z82.49 Family history of ischemic heart disease and other diseases of the circulatory system; Z82.61 Family history of arthritis; Z83.3 Family history of diabetes mellitus; Z82.3 Family history of stroke
CPT/HCPCS: 80053 ×2; 85027 ×2; 85610; 88307; 50543; C1762; J2250; J1100; J2710; J0690 ×2; J2405; J2001; J2150; J3010; J1885; J0330; J2704; J1170; 86850; 86900; 86901

== ENCOUNTER 2020-02-11 09:38 | Inpatient (IN) | payer MEDICARE, BC ==
[2020-02-11] MEDS ORDERED: SODIUM CHLORIDE 0.9% 500 ML 500 ML IV STA (10:19)
--- NOTE | 2020-02-11 10:29 | ED ---
General Adult HPI - General Chief complaint: Shortness of Breath Stated complaint: SOB Time Seen by Provider: 02/11/20 09:42 Source: patient, EMS, RN notes reviewed, old records reviewed Mode of arrival: EMS Limitations: no limitations - History of Present Illness Initial comments: 64-year-old male presenting for evaluation of dyspnea, cough. Patient is a poor historian. He does state he has a previous history of stomach cancer, not currently on chemotherapy. He denies a history of COPD. No history of heart failure reported. He states he's had a cough, difficulty breathing over the past 3 or 4 days. He denies fever. He denies pain complaints. He states his cough is productive of green sputum. - Related Data Home Medications Medication Instructions Recorded Confirmed Omeprazole 20 mg PO DAILY 12/04/19 02/11/20 Terazosin [Hytrin] 1 mg PEG/G-TUBE HS 12/04/19 02/11/20 Lactose-Reduced Food/Fiber [Jevity 1,200 ml PEJ/J-TUBE DIRECTED 12/28/19 02/11/20 1.2 Ayaan Liquid] Aspirin 81 mg PEG/G-TUBE DAILY 02/11/20 02/11/20 Multivitamin Chewable 1 tab PO DAILY 02/11/20 02/11/20 Vitamin B-12 500mcg Sublingual 1,000 mcg PO DAILY 02/11/20 02/11/20 Tablet Vitamin C Chewable Tablet (Unknown 1 tab PO DAILY 02/11/20 02/11/20 Strength) Warfarin [Coumadin] 2.5 mg PEG/G-TUBE HS 02/11/20 02/11/20 Allergies Allergy/AdvReac Type Severity Reaction Status Date / Time No Known Allergies Allergy Verified 02/11/20 10:45 Review of Systems ROS Statement: Those systems with pertinent positive or pertinent negative responses have been documented in the HPI. ROS Other: All systems not noted in ROS Statement are negative. Past Medical History Past Medical History: Atrial Fibrillation, Cancer, GERD/Reflux, Hypertension, Memory Impairment, Pneumonia, Prostate Disorder, Seizure Disorder, Sleep Apnea/CPAP/BIPAP Additional Past Medical History / Comment(s): Dysphagia, Hx Esophageal Cancer, was Reconstructed (Chemo/Radiation 2016) - aspiration Pneumonia x3, has hiatal hernia, J-tube - gets Jevity tube feed. A-Fib x2. Hx cerebral aneurysm rupture 1994 est, has shunt - residual short term memory impairment/comprehension/ balance problems @ times, Lt sided neglect, hx petit mal seizure - last 1999. Hx blood in urine, d/c'd Coumadin 12/12/19. HTN Rx d/c'd. 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 Able to eat small amounts of liquids, soft strained foods very slowly. History of Any Multi-Drug Resistant Organisms: None Reported Past Surgical History: Cholecystectomy, Joint Replacement Additional Past Surgical History / Comment(s): Hx fx Lt hip - Partial Lt Hip Replacement. Reconstruction of Esophagus [id number]. Repair of Aneurysm w/clip, has Brain Shunt - not sure if still functions, Repair Torn Retina. PEG tubes x3 ; J-tube placed 11/2019., RIGHT partial nephrectomy 12/2019. Past Anesthesia/Blood Transfusion Reactions: Previous Problems w/ Anesthesia, Motion Sickness Additional Past Anesthesia/Blood Transfusion Reaction / Comment(s): Very slow to wake up - doesn't need much per spouse. Past Psychological History: Anxiety Smoking Status: Former smoker Past Alcohol Use History: Rare Past Drug Use History: None Reported - Past Family History Mother Family Medical History: Myocardial Infarction (NH), Osteoarthritis (OA) General Exam Limitations: no limitations General appearance: alert, in no apparent distress Head exam: Present: atraumatic, normocephalic Eye exam: Present: normal appearance, PERRL ENT exam: Present: normal exam Neck exam: Present: normal inspection. Absent: tenderness, meningismus Respiratory exam: Present: respiratory distress, rhonchi, decreased breath sounds Cardiovascular Exam: Present: regular rate, normal rhythm GI/Abdominal exam: Present: soft. Absent: distended, tenderness Extremities exam: Present: normal inspection, normal capillary refill. Absent: pedal edema Neurological exam: Present: alert, CN II-XII intact, motor sensory deficit (Left-sided neglect, left weakness, chronic). Absent: oriented X3 (2) Psychiatric exam: Present: normal affect, normal mood Skin exam: Present: warm, dry, intact Course Vital Signs 02/11/20 09:41 Temperature 98.5 F Pulse Rate 101 H Respiratory 18 Rate Blood Pressure 131/91 O2 Sat by Pulse 96 Oximetry EKG Findings - EKG Comments: EKG Findings:: EKG: Sinus tachycardia, PVC, rate of 106, CO interval 154, QRS duration 92, QTC 472 Medical Decision Making - Medical Decision Making 63, patient initiated on antibiotics in the emergency department. He has leukocytosis of 12.5, stable hemoglobin, normal lactic acid,. He does have a difficult time with IV access, I placed a left upper extremity ultrasound guided IV which did infiltrate. This was after multiple IV attempts in the emergency department. The admitting physician has placed an order for either PICC line or midline. - Lab Data Result diagrams: 02/11/20 11:41 02/11/20 11:41 Lab Results 02/11/20 02/11/20 02/11/20 Range/Units 11:41 11:41 11:41 WBC 13.5 H (3.8-10.6) k/uL RBC 5.32 (4.30-5.90) m/uL Hgb 14.6 (13.0-17.5) gm/dL Hct 45.9 (39.0-53.0) % MCV 86.2 D (80.0-100.0) fL MCH 27.5 (25.0-35.0) pg MCHC 31.9 (31.0-37.0) g/dL RDW 14.6 (11.5-15.5) % Plt Count 262 (150-450) k/uL Neutrophils % 92 % Lymphocytes % 3 % Monocytes % 4 % Eosinophils % 0 % Basophils % 0 % Neutrophils # 12.4 H (1.3-7.7) k/uL Lymphocytes # 0.4 L (1.0-4.8) k/uL Monocytes # 0.5 (0-1.0) k/uL Eosinophils # 0.0 (0-0.7) k/uL Basophils # 0.0 (0-0.2) k/uL PT 21.5 H (9.0-12.0) sec INR 2.2 H (<1.2) APTT 30.0 (22.0-30.0) sec D-Dimer 0.30 (<0.60) mg/L FEU Sodium 138 (137-145) mmol/L Potassium 3.5 (3.5-5.1) mmol/L Chloride 98 (98-107) mmol/L Carbon Dioxide 29 (22-30) mmol/L Anion Gap 11 mmol/L BUN 27 H (9-20) mg/dL Creatinine 0.57 L (0.66-1.25) mg/dL Est GFR (CKD-EPI)AfAm >90 (>60 ml/min/1.73 sqM) Est GFR (CKD-EPI)NonAf >90 (>60 ml/min/1.73 sqM) Glucose 153 H (74-99) mg/dL Plasma Lactic Acid Twin (0.7-2.0) mmol/L Calcium 9.4 (8.4-10.2) mg/dL Magnesium 2.1 (1.6-2.3) mg/dL Total Bilirubin 1.2 (0.2-1.3) mg/dL AST 51 (17-59) U/L ALT 34 (4-49) U/L Alkaline Phosphatase 116 (38-126) U/L Troponin I (0.000-0.034) ng/mL NT-Pro-B Natriuret Pep pg/mL Total Protein 7.9 (6.3-8.2) g/dL Albumin 4.3 (3.5-5.0) g/dL 02/11/20 02/11/20 02/11/20 Range/Units 11:41 11:41 11:41 WBC (3.8-10.6) k/uL RBC (4.30-5.90) m/uL Hgb (13.0-17.5) gm/dL Hct (39.0-53.0) % MCV (80.0-100.0) fL MCH (25.0-35.0) pg MCHC (31.0-37.0) g/dL RDW (11.5-15.5) % Plt Count (150-450) k/uL Neutrophils % % Lymphocytes % % Monocytes % % Eosinophils % % Basophils % % Neutrophils # (1.3-7.7) k/uL Lymphocytes # (1.0-4.8) k/uL Monocytes # (0-1.0) k/uL Eosinophils # (0-0.7) k/uL Basophils # (0-0.2) k/uL PT (9.0-12.0) sec INR (<1.2) APTT (22.0-30.0) sec D-Dimer (<0.60) mg/L FEU Sodium (137-145) mmol/L Potassium (3.5-5.1) mmol/L Chloride (98-107) mmol/L Carbon Dioxide (22-30) mmol/L Anion Gap mmol/L BUN (9-20) mg/dL Creatinine (0.66-1.25) mg/dL Est GFR (CKD-EPI)AfAm (>60 ml/min/1.73 sqM) Est GFR (CKD-EPI)NonAf (>60 ml/min/1.73 sqM) Glucose (74-99) mg/dL Plasma Lactic Acid Twin 1.7 (0.7-2.0) mmol/L Calcium (8.4-10.2) mg/dL Magnesium (1.6-2.3) mg/dL Total Bilirubin (0.2-1.3) mg/dL AST (17-59) U/L ALT (4-49) U/L Alkaline Phosphatase (38-126) U/L Troponin I <0.012 (0.000-0.034) ng/mL NT-Pro-B Natriuret Pep 735 pg/mL Total Protein (6.3-8.2) g/dL Albumin (3.5-5.0) g/dL Disposition Clinical Impression: Community acquired pneumonia Disposition: ADMITTED IP TO THIS [facility] Condition: Stable Is patient prescribed a controlled substance at d/c from ED?: No Referrals: Claude Deluna MD [Primary Care Provider] - 1-2 days Decision to Admit Reason: Admit from EC Decision Date: 02/11/20 Decision Time: 13:16
[2020-02-11 12:07] LABS: ALT 34 U/L (4-49); AST 51 U/L (17-59); African American GFR (CKD) >90 (>60 ml/min/1.73 sqM); Albumin 4.3 g/dL (3.5-5.0); Alkaline Phosphatase 116 U/L (38-126); Anion Gap 11 mmol/L; Blood Urea Nitrogen 27 mg/dL (9-20); Calcium 9.4 mg/dL (8.4-10.2); Carbon Dioxide 29 mmol/L (22-30); Chloride 98 mmol/L (98-107); Glucose 153 mg/dL (74-99); Magnesium 2.1 mg/dL (1.6-2.3); Non-African American GFR(CKD) >90 (>60 ml/min/1.73 sqM); Potassium 3.5 mmol/L (3.5-5.1); Sodium 138 mmol/L (137-145); Total Bilirubin 1.2 mg/dL (0.2-1.3); Total Protein 7.9 g/dL (6.3-8.2)
[2020-02-11 12:09] LABS: D-Dimer 0.3 mg/L FEU (<0.60); INR 2.2 (<1.2); Prothrombin Time 21.5 sec (9.0-12.0)
[2020-02-11 12:25] LABS: Basophils % (A) 0 %; Eosinophils % (A) 0 %; HCT 45.9 % (39.0-53.0); HGB 14.6 gm/dL (13.0-17.5); Lymphocytes # (A) 0.4 k/uL (1.0-4.8); Lymphocytes % (A) 3 %; MCH 27.5 pg (25.0-35.0); MCHC 31.9 g/dL (31.0-37.0); Mean Platelet Volume 7.1; Monocytes # (A) 0.5 k/uL (0-1.0); Monocytes % (A) 4 %; Neutrophils # (A) 12.4 k/uL (1.3-7.7); Neutrophils % (A) 92 %; Platelet Count 262 k/uL (150-450); RBC 5.32 m/uL (4.30-5.90); RDW 14.6 % (11.5-15.5); WBC 13.5 k/uL (3.8-10.6)
--- NOTE | 2020-02-11 12:29 | XR ---
EXAMINATION TYPE: XR chest 2V DATE OF EXAM: 02/11/2020 COMPARISON: 01/01/2020 TECHNIQUE: PA and lateral views submitted. HISTORY: Difficulty breathing FINDINGS: COMM[employer]GAN[employer]ER shunt catheter noted there is bilateral consolidation and pleural effusion. Heart enlarged. Promin ence the right paratracheal stripe may represent rotation. No sizable pneumothorax. Arthropathy of th e shoulders. Hyperinflation suggests COPD. IMPRESSION: 1. Bilateral infiltrate and pleural effusion correlate for CHF. Otherwise, consider pneumonia. 2. Correlate for COPD
[2020-02-11 12:31] LABS: MCV 86.2 fL (80.0-100.0)
[2020-02-11] MEDS ORDERED: cefTRIAXone IN SWFI 1,000 MG/10 ML SYRINGE IVP STA (12:52)
[2020-02-11] MEDS ORDERED: AZITHROMYCIN 500 MG in SODIUM CHLORIDE 0.9% 250 ML IVPB STA (12:52)
[2020-02-11] MEDS ORDERED: NALOXONE 0.4 MG/ML 1 ML VIAL IV PRN (13:12)
--- NOTE | 2020-02-11 16:32 | P.HPIM ---
History of Present Illness 64-year-old male came in with complains of cough shortness of breath. Patient is comparing of greenish sputum production. Patient does not elevated patient doesn't have any elevated JVD. Patient apparently was having fevers at home although patient doesn't have any fevers here patient does have leukocytosis d-dimer is within normal limits and patient is admitted. Patient has multiple other medical problems including esophageal cancer patient has presently is a PEG tube and as per the she believes patient has significant to discharge from the PEG tube site areas believes it's purulent although upon examination PEG tube site area doesn't appear to be infected. Patient also has a renal cancer status post nephrectomy. 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 She is presently on 4 L of onset doesn't use any oxygen at home. Past Medical History Past Medical History: Atrial Fibrillation, Cancer, GERD/Reflux, Hypertension, Memory Impairment, Pneumonia, Prostate Disorder, Seizure Disorder, Sleep Apnea/CPAP/BIPAP Additional Past Medical History / Comment(s): Dysphagia, Hx Esophageal Cancer, was Reconstructed (Chemo/Radiation 2016) - aspiration Pneumonia x3, has hiatal hernia, J-tube - gets Jevity tube feed. A-Fib x2. Hx cerebral aneurysm rupture 1994 est, has shunt - residual short term memory impairment/comp rehension/balance problems @ times, Lt sided neglect, hx petit mal seizure - last 1999. Hx blood in urine, d/c'd Coumadin 12/12/19. HTN Rx d/c'd. 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 Able to eat small amounts of liquids, soft strained foods very slowly. History of Any Multi-Drug Resistant Organisms: None Reported Past Surgical History: Cholecystectomy, Joint Replacement Additional Past Surgical History / Comment(s): Hx fx Lt hip - Partial Lt Hip Replacement. Reconstruction of Esophagus [id number]. Repair of Aneurysm w/clip, has Brain Shunt - not sure if still functions, Repair Torn Retina. PEG tubes x3; J-tube placed 11/2019., RIGHT partial nephrectomy 12/2019. Past Anesthesia/Blood Transfusion Reactions: Previous Problems w/ Anesthesia, Motion Sickness Additional Past Anesthesia/Blood Transfusion Reaction / Comment(s): Very slow to wake up - doesn't need much per spouse. Past Psychological History: Anxiety Smoking Status: Former smoker Past Alcohol Use History: Rare Past Drug Use History: None Reported - Past Family History Mother Family Medical History: Myocardial Infarction (ID), Osteoarthritis (OA) Medications and Allergies Home Medications Medication Instructions Recorded Confirmed Type Omeprazole 20 mg PO DAILY 12/04/19 02/11/20 History Terazosin [Hytrin] 1 mg PEG/G-TUBE HS 12/04/19 02/11/20 History Lactose-Reduced Food/Fiber [Jevity 1,200 ml PEJ/J-TUBE DIRECTED 12/28/19 02/11/20 History 1.2 Ayaan Liquid] Aspirin 81 mg PEG/G-TUBE DAILY 02/11/20 02/11/20 History Multivitamin Chewable 1 tab PO DAILY 02/11/20 02/11/20 History Vitamin B-12 500mcg Sublingual 1,000 mcg PO DAILY 02/11/20 02/11/20 History Tablet Vitamin C Chewable Tablet (Unknown 1 tab PO DAILY 02/11/20 02/11/20 History Strength) Warfarin [Coumadin] 2.5 mg PEG/G-TUBE HS 02/11/20 02/11/20 History Allergies Allergy/AdvReac Type Severity Reaction Status Date / Time No Known Allergies Allergy Verified 02/11/20 10:45 Physical Exam Vitals: Vital Signs Temp Pulse Resp BP Pulse Ox 02/11/20 09:41 98.5 F 101 H 18 131/91 96 Intake and Output 02/11/20 02/11/20 02/11/20 06:59 14:59 22:59 Other: Weight 63.049 kg PHYSICAL EXAMINATION: GENERAL: The patient is alert and oriented x3, not in any acute distress. Well developed, well nourished. HEENT: Pupils are round and equally reacting to light. EOMI. No scleral icterus. No conjunctival pallor. Normocephalic, atraumatic. No pharyngeal erythema. No thyromegaly. CARDIOVASCULAR: S1 and S2 present. No murmurs, rubs, or gallops. PULMONARY: Crackles and rhonchi in the right lower lung bases ABDOMEN: Soft, nontender, nondistended, normoactive bowel sounds. No palpable organomegaly. Patient is a PEG tube site appears to be clean doesn't appear to be infected no significant drainage from insertion site MUSCULOSKELETAL: No joint swelling or deformity. EXTREMITIES: No cyanosis, clubbing, or pedal edema. NEUROLOGICAL: Gross neurological examination did not reveal any focal deficits. SKIN: No rashes. Results CBC & Chem 7: 02/11/20 11:41 02/11/20 11:41 Labs: Abnormal Lab Results - Last 24 Hours (Table) 02/11/20 02/11/20 02/11/20 Range/Units 11:41 11:41 11:41 WBC 13.5 H (3.8-10.6) k/uL Neutrophils # 12.4 H (1.3-7.7) k/uL Lymphocytes # 0.4 L (1.0-4.8) k/uL PT 21.5 H (9.0-12.0) sec INR 2.2 H (<1.2) BUN 27 H (9-20) mg/dL Creatinine 0.57 L (0.66-1.25) mg/dL Glucose 153 H (74-99) mg/dL Assessment and Plan Plan: -Acute hypoxic respiratory failure probably secondary to pneumonia predominantly in the right total patient does have pleural effusions on both sides. Patient will continued on antibiotics continue with IV fluids consult pulmonology. -Atrial fibrillation: Presently sinus rhythm is not on any rate control medications along also hold off Coumadin because of his history of cerebral aneurysm, patient appears to be taking his medication as his INR is 2.2 Have her gases was reflux disease Hypertension Abdomen benign prostatic hypertrophy -History of renal cancer and esophageal cancer with dysphagia and a PEG tube. Patient will be resumed on PEG tube feedings -History of cerebral aneurysm.
[2020-02-11] MEDS ORDERED: DILTIAZEM DRIP BOLUS FROM BAG 1 MG SOLN IV ONE ×3 (16:57→19:31)
--- NOTE | 2020-02-11 17:01 | ED ---
Medical Decision Making - Medical Decision Making The patient was noted be in a rapid heart rate. I did examine him he is asymptomatic but he does have A. fib with RVR showing up on a monitor this is clinically confirmed with auscultation a very high heart rate which appears be approaching 200 bpm. Patient be started on Cardizem drip and did discuss this with Dr. Montoya patient be admitted to telemetry stepdown general medical floor cardiology will be consulted. - Lab Data Result diagrams: 02/11/20 11:41 02/11/20 11:41 Lab Results 02/11/20 02/11/20 02/11/20 Range/Units 11:41 11:41 11:41 WBC 13.5 H (3.8-10.6) k/uL RBC 5.32 (4.30-5.90) m/uL Hgb 14.6 (13.0-17.5) gm/dL Hct 45.9 (39.0-53.0) % MCV 86.2 D (80.0-100.0) fL MCH 27.5 (25.0-35.0) pg MCHC 31.9 (31.0-37.0) g/dL RDW 14.6 (11.5-15.5) % Plt Count 262 (150-450) k/uL Neutrophils % 92 % Lymphocytes % 3 % Monocytes % 4 % Eosinophils % 0 % Basophils % 0 % Neutrophils # 12.4 H (1.3-7.7) k/uL Lymphocytes # 0.4 L (1.0-4.8) k/uL Monocytes # 0.5 (0-1.0) k/uL Eosinophils # 0.0 (0-0.7) k/uL Basophils # 0.0 (0-0.2) k/uL PT 21.5 H (9.0-12.0) sec INR 2.2 H (<1.2) APTT 30.0 (22.0-30.0) sec D-Dimer 0.30 (<0.60) mg/L FEU Sodium 138 (137-145) mmol/L Potassium 3.5 (3.5-5.1) mmol/L Chloride 98 (98-107) mmol/L Carbon Dioxide 29 (22-30) mmol/L Anion Gap 11 mmol/L BUN 27 H (9-20) mg/dL Creatinine 0.57 L (0.66-1.25) mg/dL Est GFR (CKD-EPI)AfAm >90 (>60 ml/min/1.73 sqM) Est GFR (CKD-EPI)NonAf >90 (>60 ml/min/1.73 sqM) Glucose 153 H (74-99) mg/dL Plasma Lactic Acid Twin (0.7-2.0) mmol/L Calcium 9.4 (8.4-10.2) mg/dL Magnesium 2.1 (1.6-2.3) mg/dL Total Bilirubin 1.2 (0.2-1.3) mg/dL AST 51 (17-59) U/L ALT 34 (4-49) U/L Alkaline Phosphatase 116 (38-126) U/L Troponin I (0.000-0.034) ng/mL NT-Pro-B Natriuret Pep pg/mL Total Protein 7.9 (6.3-8.2) g/dL Albumin 4.3 (3.5-5.0) g/dL 02/11/20 02/11/20 02/11/20 Range/Units 11:41 11:41 11:41 WBC (3.8-10.6) k/uL RBC (4.30-5.90) m/uL Hgb (13.0-17.5) gm/dL Hct (39.0-53.0) % MCV (80.0-100.0) fL MCH (25.0-35.0) pg MCHC (31.0-37.0) g/dL RDW (11.5-15.5) % Plt Count (150-450) k/uL Neutrophils % % Lymphocytes % % Monocytes % % Eosinophils % % Basophils % % Neutrophils # (1.3-7.7) k/uL Lymphocytes # (1.0-4.8) k/uL Monocytes # (0-1.0) k/uL Eosinophils # (0-0.7) k/uL Basophils # (0-0.2) k/uL PT (9.0-12.0) sec INR (<1.2) APTT (22.0-30.0) sec D-Dimer (<0.60) mg/L FEU Sodium (137-145) mmol/L Potassium (3.5-5.1) mmol/L Chloride (98-107) mmol/L Carbon Dioxide (22-30) mmol/L Anion Gap mmol/L BUN (9-20) mg/dL Creatinine (0.66-1.25) mg/dL Est GFR (CKD-EPI)AfAm (>60 ml/min/1.73 sqM) Est GFR (CKD-EPI)NonAf (>60 ml/min/1.73 sqM) Glucose (74-99) mg/dL Plasma Lactic Acid Twin 1.7 (0.7-2.0) mmol/L Calcium (8.4-10.2) mg/dL Magnesium (1.6-2.3) mg/dL Total Bilirubin (0.2-1.3) mg/dL AST (17-59) U/L ALT (4-49) U/L Alkaline Phosphatase (38-126) U/L Troponin I <0.012 (0.000-0.034) ng/mL NT-Pro-B Natriuret Pep 735 pg/mL Total Protein (6.3-8.2) g/dL Albumin (3.5-5.0) g/dL Disposition Clinical Impression: Community acquired pneumonia, Rapid atrial fibrillation Disposition: ADMITTED IP TO THIS HOSP Condition: Stable
[2020-02-11] MEDS: SODIUM CHLORIDE 0.9% 1,000 ML IV SCH (17:48)
[2020-02-11] MEDS: DILTIAZEM 125 MG in SODIUM CHLORIDE 0.9% 100 ML IV SCH (17:49)
[2020-02-11] MEDS: DOXAZOSIN 1 MG TAB PO SCH (21:18)
[2020-02-11] MEDS: METOPROLOL TARTRATE 50 MG TAB PO SCH (21:37)
[2020-02-11 22:16] LABS: Appearance,Urine Clear (Clear); Bilirubin,Urine Negative (Negative); Blood,Urine Negative (Negative); Color,Urine Yellow; Glucose,Urine (UA) Negative (Negative); Ketones,Urine Negative (Negative); Leukocyte Esterase,Urine Negative (Negative); Mucus,Urine Many /hpf; Nitrite,Urine Negative (Negative); Protein,Urine 1+ (Negative); RBC,Urine 2 /hpf (0-5); Specific Gravity,Urine 1.029 (1.001-1.035); WBC,Urine 1 /hpf (0-5)
[2020-02-12] MEDS ORDERED: FUROSEMIDE 10 MG/ML 2 ML VIAL IV ONE (00:22)
[2020-02-12 00:28] LABS: Glucose,Whole Blood 171 mg/dL (75-99)
--- NOTE | 2020-02-12 01:36 | XR ---
EXAMINATION TYPE: XR chest 1V portable DATE OF EXAM: 02/12/2020 COMPARISON: Yesterday HISTORY: Short of breath TECHNIQUE: FINDINGS: There is infiltrate and atelectasis at both lung bases. There is no gross heart failure. Th ere is dilated esophagus. There is right-sided ventriculoperitoneal shunt catheter. There are chest l bon. IMPRESSION: Bilateral lower lobe pulmonary patchy infiltrates and atelectasis not changed compared to yesterday. No heart failure seen.
[2020-02-12] MEDS ORDERED: FUROSEMIDE 10 MG/ML 4 ML VIAL ONE (02:34)
[2020-02-12 03:39] LABS: ABG Base Excess 6.2 mmol/L; ABG HCO3 29 mmol/L (21-25); ABG Oxygen Saturation 90.1 % (94-97); ABG PCO2 37 mmHg (35-45); ABG PH 7.51 (7.35-7.45); ABG TCO2 30 mmol/L (19-24); Allen Test Performed? Yes
[2020-02-12 03:45] LABS: ABG PO2 55 mmHg (83-108)
[2020-02-12] MEDS ORDERED: ONDANSETRON 4 MG/2 ML VIAL IVP PRN (04:08)
[2020-02-12] MEDS: DILTIAZEM 125 MG in SODIUM CHLORIDE 0.9% 100 ML IV SCH ×3 (05:00→20:36)
[2020-02-12] MEDS: METOPROLOL TARTRATE 50 MG TAB PO SCH ×2 (06:12→21:13)
[2020-02-12 06:24] LABS: ABG HCO3 29 mmol/L (21-25); ABG PCO2 34 mmHg (35-45); ABG PH 7.53 (7.35-7.45); ABG PO2 183 mmHg (83-108); ABG TCO2 30 mmol/L (19-24); Allen Test Performed? Yes
[2020-02-12 06:46] LABS: Glucose,Whole Blood 129 mg/dL (75-99)
[2020-02-12 06:58] LABS: HCT 44.5 % (39.0-53.0); HGB 14.2 gm/dL (13.0-17.5); MCHC 31.8 g/dL (31.0-37.0); MCV 87.9 fL (80.0-100.0); Mean Platelet Volume 7.1; Platelet Count 265 k/uL (150-450); RBC 5.06 m/uL (4.30-5.90); RDW 14.9 % (11.5-15.5); WBC 13.1 k/uL (3.8-10.6)
[2020-02-12 07:07] LABS: ALT 27 U/L (4-49); AST 28 U/L (17-59); African American GFR (CKD) >90 (>60 ml/min/1.73 sqM); Albumin 3.9 g/dL (3.5-5.0); Alkaline Phosphatase 92 U/L (38-126); Anion Gap 10 mmol/L; Blood Urea Nitrogen 31 mg/dL (9-20); Calcium 8.8 mg/dL (8.4-10.2); Carbon Dioxide 29 mmol/L (22-30); Chloride 103 mmol/L (98-107); Glucose 149 mg/dL (74-99); Magnesium 2.1 mg/dL (1.6-2.3); Non-African American GFR(CKD) >90 (>60 ml/min/1.73 sqM); Potassium 3.3 mmol/L (3.5-5.1); Sodium 142 mmol/L (137-145); Total Bilirubin 0.9 mg/dL (0.2-1.3); Total Protein 7.3 g/dL (6.3-8.2)
[2020-02-12] MEDS ORDERED: METOCLOPRAMIDE 5 MG/ML 2 ML VIAL IVP PRN (08:29)
[2020-02-12 08:42] LABS: Appearance,Urine Clear (Clear); Bacteria,Urine Rare /hpf; Bilirubin,Urine Negative (Negative); Blood,Urine Trace (Negative); Color,Urine Yellow; Glucose,Urine (UA) Negative (Negative); Hyaline Casts,Urine 1 /lpf (0-2); Ketones,Urine Negative (Negative); Leukocyte Esterase,Urine Negative (Negative); Mucus,Urine Few /hpf; Nitrite,Urine Negative (Negative); PH, Urine 5.5 (5.0-8.0); Protein,Urine Trace (Negative); RBC,Urine 5 /hpf (0-5); Specific Gravity,Urine 1.014 (1.001-1.035); Urobilinogen,Urine <2.0 mg/dL (<2.0); WBC,Urine 1 /hpf (0-5)
[2020-02-12] MEDS ORDERED: ASPIRIN 81 MG PEG/G-TUBE SCH (09:00)
[2020-02-12] MEDS ORDERED: PANTOPRAZOLE 40 MG TABLET PO SCH (09:00)
[2020-02-12] MEDS ORDERED: FAMOTIDINE 20 MG/2 ML VIAL IV SCH (09:00)
[2020-02-12] MEDS: PANTOPRAZOLE 40 MG/10 ML VIAL IVP SCH (10:09)
[2020-02-12] MEDS: PIPERACILLIN-TAZOBACTAM 3.375 GM in SODIUM CHLORIDE 0.9% 100 ML IVPB SCH ×3 (10:09→23:56)
[2020-02-12] MEDS: SODIUM CHLORIDE 0.9% 1,000 ML IV SCH ×3 (10:10→21:18)
[2020-02-12] MEDS ORDERED: Potassium Replacement Protocol 1 EACH MISC MISCELLANE PRN (10:16)
[2020-02-12] MEDS ORDERED: IPRATROPIUM-ALBUTEROL 3 ML NEB INHALATION PRN (10:35)
[2020-02-12] MEDS ORDERED: SODIUM CHLORIDE 0.9% 1,000 ML IV ONE (10:40)
[2020-02-12] MEDS: POTASSIUM CHLORIDE 10 MEQ in WATER FOR INJECTION 1 100ML.BAG IVPB SCH ×6 (10:51→20:38)
[2020-02-12] MEDS ORDERED: METOPROLOL TARTRATE 50 MG TAB PO STA (10:54)
[2020-02-12] MEDS: IPRATROPIUM-ALBUTEROL 3 ML NEB INHALATION SCH ×3 (11:31→20:50)
--- NOTE | 2020-02-12 11:56 | CONS ---
CONSULTATION Mr. Jarquin is a 64-year-old male with prior history of esophageal cancer, history of paroxysmal atrial fibrillation who presented with symptoms of progressive dyspnea and febrile episode at home, was diagnosed with pneumonia. He has also history of renal cancer status post nephrectomy, and esophageal cancer as well as a PEG tube. The patient has history of memory issues and could not recall all the events. He has history of paroxysmal atrial fibrillation as well as history of cerebral aneurysm, ruptured in 1994, but he has been anticoagulated. He presented initially in sinus mechanism. Subsequently went in atrial fibrillation with episode of rapid ventricular response, associated with the progressive dyspnea related to his pneumonia. He denies any chest pain. He is not aware of the arrhythmia. He denies any dizziness or palpitation. No syncope. He complains of dyspnea but no significant cough. Some of the history is limited because of his memory. MEDICATION: At home include Coumadin, Terazosin, omeprazole, aspirin. REVIEW OF SYSTEMS: Limited. Respiratory system: He has dyspnea on exertion. No cough. GI system: He has history of esophageal CA and a PEG tube placed. No recent GI bleeding. system: No dysuria or hematuria. Nervous system: He has a history of cerebral aneurysm, but no history of stroke according to him. PHYSICAL EXAMINATION: He is a 64-year-old male, alert, oriented, on high-flow oxygen. Blood pressure 129/50 with a heart rate in 90s. HEAD: Normocephalic. Eyes: Sclerae anicteric. RESPIRATORY: Bilateral crackles at the bases. HEART: Irregularly irregular S1, S2. No S3 with systolic murmur. No diastolic murmur. No rub. ABDOMEN: Soft. A PEG tube noted. Positive bowel sounds. No megaly. EXTREMITIES: No edema. LAB DATA: On presentation, his white blood cells 13.5, hemoglobin 14.6. BUN and creatinine 27 and 0.57. His troponin less than 0.012. NT proBNP of 735. This morning, potassium 3.3. His BUN and creatinine 31 and 0.6. His initial EKG shows a sinus mechanism, normal axis and intervals with nonspecific ST-T wave changes. Subsequent EKG revealed atrial fibrillation versus atrial tachycardia. His echocardiogram obtained in October showed a preserved left ventricular size and systolic function. The chest x-ray revealed bilateral lower lobe pneumonia. IMPRESSION: 1. Bilateral pneumonia with symptoms of respiratory failure. 2. Paroxysmal atrial fibrillation, exacerbated most likely by the infectious process. 3. History of esophageal carcinoma status post PEG tube. 4. History of renal cancer. 5. History of cerebral aneurysm has been anticoagulated. RECOMMENDATION: From the cardiac standpoint, the patient at this time has been started on beta mirna as well as IV Cardizem. We will continue on that. Follow his INR. Patient will need to go back on the Coumadin. He has not had any issues with the bleeding in the past. Depending on his progress, further recommendations will be made. Thank you for this consult. We will follow with you. MMODL / IJN: [id number] /
--- NOTE | 2020-02-12 12:48 | P.PN ---
Subjective 64-year-old the male admitted for pneumonia bilateral, predominantly in the right lower lobes. There is a concern about aspiration patient has been vomiting. Patient does take a modified diet by mouth at home does have a PEG tube in place. Patient the antibiotics were changed to Zosyn which is appropriate. Patient went into respiratory distress on some requirements have gone up because of which patient was transferred to ICU later in the day patient started having A. fib with rapid ventricular rate because of which patient was started on Cardizem and cardiology was consulted. I'm also consulting speech therapy because of his swallowing issues to assess if her appropriate for the patient to be continued on modified diet by mouth. Constitutional: Denied any fatigue denied any fever. Cardio vascular: denied any chest pain, palpitations Gastrointestinal denied any nausea vomiting Pulmonary: Denied any shortness of breath cough Neurologic denied any new focal deficits All inpatient medications were reviewed and appropriate changes in these medications as dictated in the interval history and assessment and plan. Objective - Vital Signs Vital signs: Vital Signs Temp 99.3 F 02/12/20 12:00 Pulse 85 02/12/20 12:00 Resp 39 H 02/12/20 12:00 BP 104/77 02/12/20 12:00 Pulse Ox 91 L 02/12/20 12:00 Intake & Output 02/11/20 02/12/20 02/12/20 18:59 06:59 18:59 Intake Total 125.000 589.5 Output Total 1900 319 Balance -1775.000 270.5 Weight 63.049 kg 60.5 kg 60.5 kg Intake: Intake, IV Titration 125.000 589.5 Amount Diltiazem 125 mg In 125.000 89.5 Sodium Chloride 0.9% 100 ml @ 15 MG/HR 15 mls/hr IV .Q8H20M [facility] Rx#: [id number] Piperacillin-Tazobactam 3 100 .375 gm In Sodium Chloride 0.9% 100 ml @ 25 mls/hr IVPB Q8HR [facility] Rx# :[id number] Potassium Chloride 10 meq 100 In Water For Injection 1 100ml.bag @ 100 mls/hr IVPB Q1HR [facility] Rx#: [id number] Sodium Chloride 0.9% 1, 300 000 ml @ 100 mls/hr IV . Q10H [facility] Rx#:[id number] Output: Urine 1900 319 Other: Voiding Method Urinal Indwelling Catheter - Exam PHYSICAL EXAMINATION: GENERAL: The patient is alert and oriented x3, not in any acute distress. Well developed, well nourished. HEENT: Pupils are round and equally reacting to light. EOMI. No scleral icterus. No conjunctival pallor. Normocephalic, atraumatic. No pharyngeal erythema. No thyromegaly. CARDIOVASCULAR: S1 and S2 present. No murmurs, rubs, or gallops. PULMONARY: Diffuse bilateral rhonchi ABDOMEN: Soft, nontender, nondistended, normoactive bowel sounds. No palpable organomegaly. MUSCULOSKELETAL: No joint swelling or deformity. EXTREMITIES: No cyanosis, clubbing, or pedal edema. NEUROLOGICAL: Gross neurological examination did not reveal any focal deficits. SKIN: No rashes. - Labs CBC & Chem 7: 02/12/20 06:46 02/12/20 06:46 Labs: Abnormal Lab Results - Last 24 Hours (Table) 02/11/20 02/12/20 02/12/20 Range/Units 21:56 00:24 03:37 WBC (3.8-10.6) k/uL ABG pH 7.51 H (7.35-7.45) ABG pCO2 (35-45) mmHg ABG pO2 55 L* (83-108) mmHg ABG HCO3 29 H (21-25) mmol/L ABG Total CO2 30 H (19-24) mmol/L ABG O2 Saturation 90.1 L (94-97) % Potassium (3.5-5.1) mmol/L BUN (9-20) mg/dL Creatinine (0.66-1.25) mg/dL Glucose (74-99) mg/dL POC Glucose (mg/dL) 171 H (75-99) mg/dL Urine Protein 1+ H (Negative) Urine Blood (Negative) Urine Bacteria (None) /hpf Urine Mucus Many H (None) /hpf 02/12/20 02/12/20 02/12/20 Range/Units 06:22 06:44 06:46 WBC 13.1 H (3.8-10.6) k/uL ABG pH 7.53 H (7.35-7.45) ABG pCO2 34 L (35-45) mmHg ABG pO2 183 H (83-108) mmHg ABG HCO3 29 H (21-25) mmol/L ABG Total CO2 30 H (19-24) mmol/L ABG O2 Saturation 100.0 H (94-97) % Potassium (3.5-5.1) mmol/L BUN (9-20) mg/dL Creatinine (0.66-1.25) mg/dL Glucose (74-99) mg/dL POC Glucose (mg/dL) 129 H (75-99) mg/dL Urine Protein (Negative) Urine Blood (Negative) Urine Bacteria (None) /hpf Urine Mucus (None) /hpf 02/12/20 02/12/20 Range/Units 06:46 08:15 WBC (3.8-10.6) k/uL ABG pH (7.35-7.45) ABG pCO2 (35-45) mmHg ABG pO2 (83-108) mmHg ABG HCO3 (21-25) mmol/L ABG Total CO2 (19-24) mmol/L ABG O2 Saturation (94-97) % Potassium 3.3 L (3.5-5.1) mmol/L BUN 31 H (9-20) mg/dL Creatinine 0.60 L (0.66-1.25) mg/dL Glucose 149 H (74-99) mg/dL POC Glucose (mg/dL) (75-99) mg/dL Urine Protein Trace H (Negative) Urine Blood Trace H (Negative) Urine Bacteria Rare H (None) /hpf Urine Mucus Few H (None) /hpf Microbiology - Last 24 Hours (Table) 02/11/20 13:30 Gram Stain - Final Abdomen Wound Culture - Final Assessment and Plan Plan: -Acute hypoxic respiratory failure probably secondary to pneumonia predominantly in the right total patient does have pleural effusions on both sides. Patient is on Zosyn at this time there is a concern for aspiration. Patient is presently on high flow oxygen via [employer] cannula off BiPAP was on BiPAP last night -Atrial fibrillation with rapid ventricular rate. Patient appears to be on Coum elizabeth patient has an aneurysm that was already clipped unsure whether patient will need to continue this Coumadin considering his aneurysm. We discussed with the patient's before I start him on that medication patient's cousin INR is 2.2 gastroesophageal reflux disease Hypertension Abdomen benign prostatic hypertrophy -History of renal cancer and esophageal cancer with dysphagia and a PEG tube. Patient will be resumed on PEG tube feedings, speech therapy will be consulted because of his inability to swallow and patient does use modified diet at home by mouth -History of cerebral aneurysm.
--- NOTE | 2020-02-12 12:56 | CONS ---
CONSULTATION PULMONARY/CRITICAL CARE CONSULTATION: DATE OF CONSULTATION: 02/12/2020 This is a 64-year-old gentleman who apparently sees Dr. Claude Deluna. He apparently was admitted through the emergency room with complaints of shortness of breath. He was brought in by EMS. He was apparently a poor historian in the Emergency Room. He has a previous history of esophageal cancer, status post chemotherapy and is also status post G-tube placement. He denies a history of COPD and heart failure. He apparently has been having complaints of chest congestion cough and shortness of breath. This has been going on for 3 or 4 days. He denies any fever. Apparently, the cough productive of green phlegm, according to the ER crow. The patient was admitted to room 381 with a diagnosis of bilateral pneumonia, hypoxemia, and through the night, the patient deteriorated. I was first alerted about this patient sometime after 6 o'clock this morning. He apparently started having difficulty before 3 am. There was an A-team call. My A-team nurses responded and treated the patient appropriately. The patient was placed on BiPAP initially, but apparently because of vomiting, the patient was switched to AIRVO. Anyway, as the patient continued to deteriorate, I was notified and we moved the patient to the ICU. Currently, the patient is on AIRVO 50 L/minute and 50%. I also suggested to the respiratory therapist the patient could be placed on BiPAP at 10/5 and 50% as an alternative. Should he start vomiting again, he should be switched back to AIRVO. He is getting saline at 100 mL an hour and Cardizem at 15 mg an hour for his atrial fibrillation and RVR. The patient apparently has a history of brain aneurysm, status post shunt, esophageal cancer, status post chemotherapy, NG tube placement, seizure disorder, atrial fibrillation, GERD, and sleep apnea syndrome. Currently, he is receiving IV fluids at 100 mL an hour. I have asked the nurses to discontinue the tube feeds. He can use either AIRVO or BiPAP as mentioned earlier. In addition, the patient is on Zosyn and we did order a procalcitonin level. MEDICATIONS: Reviewed. He is on omeprazole, Hytrin, Jevity, aspirin, multivitamins, vitamin B12, vitamin C, and warfarin. ALLERGIES: Denied. MEDICAL HISTORY: Includes atrial fibrillation, esophageal cancer, GERD, hypertension, memory impairment, pneumonia, BPH, seizure disorder, and sleep apnea. He does have a history of dysphagia secondary to esophageal cancer and has had aspiration pneumonia x3. The patient also has a history of hiatal hernia as well as right kidney mass, status post excision. 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 He does take things by mouth but mostly liquids or thickened liquids. SURGICAL HISTORY: Includes cholecystectomy, left hip replacement, esophageal reconstruction, repair of aneurysm with clipping and brain shunt, repair of torn retina, PEG tube x3, J-tube placement in November 2019 and right partial nephrectomy in December 2019. SOCIAL HISTORY: Positive for previous tobacco use. He drinks rarely. No illicit drug use. FAMILY HISTORY: Positive for mother with myocardial infarction and DJD. REVIEW OF SYSTEMS: CONSTITUTIONAL: Weakness. NEUROLOGIC: Negative. HEENT: Negative. CARDIOVASCULAR: Negative. PULMONARY: Shortness of breath, chest congestion, cough and phlegm production. GI: Negative. : Negative. RHEUMATOLOGIC: Negative. IMMUNOLOGIC: Negative. ENDOCRINOLOGIC: Negative. DERMATOLOGIC: Negative. Current vital signs are reviewed. Temperature is 98.4, heart rate 87, respiratory rate is mid 30s, blood pressure 118/98 mean 104, saturations are 92%-95%. Appears in no acute distress. HEENT: Examination is grossly unremarkable. AIRVO cannula in place. NECK: Supple, full range of motion. No adenopathy. Neck veins are flat. CARDIOVASCULAR: Examination reveals regular rhythm and rate. Heart rate mid 90s. S1, S2 normal. Heart sounds are distant. LUNGS: Reveal diffuse coarse rhonchi. You can almost hear them audibly without a stethoscope. Breath sounds equal. No wheezes or crackles. ABDOMEN: Soft. J-tube noted. EXTREMITIES: Intact. No cyanosis, clubbing, or edema. SKIN: Without rash. NEUROLOGIC: Examination is brief but nonfocal. LABS: Reviewed. White count 13.1, hemoglobin 14.2, hematocrit 44.5, platelet count normal. Most recent blood gases show pO2 of 183, pCO2 of 34, and pH is 7.53. That was on AIRVO at 70% and 50 L/minute. Sodium 142, potassium 3.3, chloride is 103. CO2 of 29, anion gap is 10, BUN and creatinine were 31 and 0.60. Urine is essentially negative. Microbiology is currently pending. Chest x-ray shows bibasilar patchy infiltrates. Current medications are reviewed. He is on Tylenol, aspirin, Cardizem drip, Cardura, Pepcid, Reglan, metoprolol, Narcan, Zofran, Protonix, Zosyn, and potassium replacement. ASSESSMENT: 1. Acute hypoxemic respiratory failure secondary to aspiration pneumonia with infiltrate in both the bases. 2. History of esophageal cancer, status post chemotherapy and J-tube placement. 3. History of brain aneurysm and status post shunt. 4. History of seizure disorder. 5. History of chronic atrial fibrillation with RVR. 6. Gastroesophageal reflux disease. 7. Sleep apnea syndrome. PLAN: The patient's IV fluids are increased to 100 mL an hour. We will make the patient n.p.o. The patient will not have any tube feeds through the J-tube at this time. Will institute aspiration precautions. Head of bed elevated at all times. The patient could be either on AIRVO at 50 L/minutes and 50% or BiPAP at 10/5 and 50%. Will check a procalcitonin level. We started the patient on Zosyn. Additional recommendations and suggestions are forthcoming. Prognosis is guarded. MMODL / IJN: [id number] /
[2020-02-12] MEDS ORDERED: DEXTROSE 5% IN WATER 100 ML with AMIODARONE 150 MG IV ONE (18:30)
[2020-02-12] MEDS ORDERED: AMIODARONE 360 MG in DEXTROSE 5% IN WATER 200 ML IV ONE ×2 (18:40)
[2020-02-12] MEDS: BUDESONIDE 1 MG/2 ML NEBU INHALATION SCH (20:50)
[2020-02-12] MEDS: DOXAZOSIN 1 MG TAB PO SCH (21:13)
[2020-02-13] MEDS ORDERED: AMIODARONE 300 MG in DEXTROSE 5% IN WATER 250 ML IV SCH ×2 (00:40)
[2020-02-13 04:23] LABS: Basophils % (A) 0 %; Eosinophils % (A) 0 %; HCT 39.4 % (39.0-53.0); HGB 12.3 gm/dL (13.0-17.5); Lymphocytes # (A) 0.6 k/uL (1.0-4.8); Lymphocytes % (A) 9 %; MCH 28.1 pg (25.0-35.0); MCHC 31.1 g/dL (31.0-37.0); MCV 90.2 fL (80.0-100.0); Mean Platelet Volume 7.9; Monocytes # (A) 0.5 k/uL (0-1.0); Monocytes % (A) 6 %; Neutrophils # (A) 6.2 k/uL (1.3-7.7); Neutrophils % (A) 83 %; Platelet Count 221 k/uL (150-450); RBC 4.37 m/uL (4.30-5.90); RDW 14.7 % (11.5-15.5); WBC 7.4 k/uL (3.8-10.6)
[2020-02-13 04:26] LABS: INR 1.5 (<1.2); Prothrombin Time 14.4 sec (9.0-12.0)
[2020-02-13 04:36] LABS: African American GFR (CKD) >90 (>60 ml/min/1.73 sqM); Anion Gap 4 mmol/L; Blood Urea Nitrogen 32 mg/dL (9-20); Calcium 8.5 mg/dL (8.4-10.2); Carbon Dioxide 28 mmol/L (22-30); Chloride 109 mmol/L (98-107); Glucose 129 mg/dL (74-99); Non-African American GFR(CKD) >90 (>60 ml/min/1.73 sqM); Potassium 3.6 mmol/L (3.5-5.1); Sodium 141 mmol/L (137-145)
[2020-02-13] MEDS ORDERED: POTASSIUM BICARBONATE/CIT AC 20 MEQ TABLET.EFF NG-TUBE SCH (05:00)
[2020-02-13] MEDS: DILTIAZEM 125 MG in SODIUM CHLORIDE 0.9% 100 ML IV SCH (05:19)
[2020-02-13] MEDS: BUDESONIDE 1 MG/2 ML NEBU INHALATION SCH ×2 (07:24→19:39)
[2020-02-13] MEDS: IPRATROPIUM-ALBUTEROL 3 ML NEB INHALATION SCH ×4 (07:24→19:39)
--- NOTE | 2020-02-13 08:40 | XR ---
EXAMINATION TYPE: XR chest 1V portable DATE OF EXAM: 02/13/2020 COMPARISON: 02/12/2020 HISTORY: Shortness of breath TECHNIQUE: Single frontal view of the chest is obtained. FINDINGS: [employer] shunt catheter noted and there is bilateral infiltrate and pleural effusion. No sizable pneumothorax. Prominence the right paratracheal stripe and postoperative changes are stable. Arthrop athy of the shoulder. Surgical clips in the abdomen. IMPRESSION: 1. Bilateral infiltrate and pleural effusion again noted. Given differences in technique and inspirat ion there likely is mild progression on the left.
[2020-02-13] MEDS: PANTOPRAZOLE 40 MG/10 ML VIAL IVP SCH (09:05)
[2020-02-13] MEDS: AMIODARONE 200 MG TAB PO SCH ×2 (09:05→19:19)
[2020-02-13] MEDS: METOCLOPRAMIDE 5 MG/ML 2 ML VIAL IVP SCH ×3 (09:05→16:59)
[2020-02-13] MEDS: PIPERACILLIN-TAZOBACTAM 3.375 GM in SODIUM CHLORIDE 0.9% 100 ML IVPB SCH ×2 (09:05→16:58)
[2020-02-13] MEDS: METOPROLOL TARTRATE 50 MG TAB PO SCH ×2 (09:05→19:06)
[2020-02-13] MEDS: APIXABAN 5 MG TAB PO SCH ×2 (09:06→21:43)
[2020-02-13] MEDS: SODIUM CHLORIDE 0.9% 1,000 ML IV SCH ×3 (09:06→21:45)
--- NOTE | 2020-02-13 11:01 | PN ---
PROGRESS NOTE Mr. Jarquin is a 64-year-old male with a known history of esophageal cancer, paroxysmal atrial fibrillation who presented with symptoms of progressive dyspnea and febrile episode. He was diagnosed with pneumonia, has history of esophageal cancer, J-tube placement. He continued to be in paroxysmal atrial fibrillation, yet is stable at this time. He is in sinus with occasional PACs. He denies any symptoms of chest pain, his breathing is better. He denies any dizziness or palpitation. He denies any nausea. He is maintained on IV amiodarone, IV Cardizem and metoprolol tartrate 50 mg twice a day. PHYSICAL EXAMINATION: Blood pressure 107/70 with a heart rate in 90s. LUNGS: With decreased air exchange bilaterally, no wheezes. HEART: Regular rate and rhythm, S1, S2 with extrasystole and systolic murmur. ABDOMEN: Soft, nontender. PEG tube in place. EXTREMITIES: No edema. LAB DATA: Revealed BUN and creatinine 32 and 0.61, potassium 3.6, hemoglobin of 12.3. His procalcitonin is 0.46. IMPRESSION: 1. Respiratory failure with probable aspiration pneumonia. 2. Paroxysmal atrial fibrillation. 3. History of esophageal cancer, status post chemotherapy and J-tube placement. 4. History of brain aneurysm and post shunt. 5. History of seizure disorder. RECOMMENDATION: From the cardiac standpoint, I will switch him to oral , stop the IV Cardizem. Will reinitiate treatment for anticoagulation and depending on his progress, further recommendation will be made. MMODL / IJN: [id number] /
--- NOTE | 2020-02-13 12:25 | PN ---
PROGRESS NOTE PULMONARY/CRITICAL CARE PROGRESS NOTE: DATE OF SERVICE: 02/13/2020 CRITICAL CARE TIME: 33 minutes. This is a 64-year-old gentleman who sees Dr. lCaude Deluna. He was admitted to the emergency department with complaints of shortness of breath. He was initially brought in by EMS. He does have a history of esophageal cancer, status post chemotherapy and J- tube placement, as well as a history of COPD and CHF. Currently, the patient is doing reasonably well. Given the circumstances, the patient is between BiPAP at 10/5 and 50% and AIRVO at 50 L/minute and 70%. The patient did have a blood gas this morning showing a pO2 of 56 and pCO2 of 34, and pH of 7.525, which is consistent with hypoxemia and a combined respiratory and metabolic alkalosis. The patient is also on a Cardizem drip a 10 mg an hour, amiodarone at 0.5 mg/minute and saline at 100 mL an hour. The patient will be given Reglan 10 mg IV push q.6 hours and we will start trickle tube feeds. The patient is currently on Zosyn as well as an antibiotic. Culture data is thus far negative. Currently, he seems to be a bit more comfortable today than he was yesterday. His respiratory rate is lower. He states he is feeling a bit better. Chest x-ray does show a diffuse infiltrates. Current vital signs are reviewed, temperature is 98.9, heart rate 95, respiratory rate between 25-30 breaths per minute, blood pressure 118/71 mean 86, saturations between 90% and 92% on the AIRVO at 50 L/minute and 70%. Appears mildly tachypneic. No audible wheezing, use of accessory muscles or conversational dyspnea. HEENT: Examination is grossly unremarkable. AIRVO cannula in place. NECK: Supple, full range of motion. No adenopathy. Neck veins are flat. CARDIOVASCULAR: Examination reveals regular rhythm and rate. Heart sounds are distant. Heart rate 95 beats per minute. LUNGS: Reveal diffuse coarse rhonchi. No wheezes or crackles. ABDOMEN: Soft. J-tube is noted. Bowel sounds are not noted. EXTREMITIES: Intact. No edema. No cyanosis or clubbing. SKIN: Without rash. NEUROLOGIC: Examination is nonfocal. LABS: Reviewed. White count 7.4, hemoglobin 12.3, hematocrit 39.4, platelet count 221,000,. PT, INR is 14.4 and 1.5 respectively. Sodium 141, potassium 3.6, chloride 109, CO2 is 28, anion gap is 4. BUN and creatinine were 32 and 0.61. Urine shows trace blood and trace protein. Rare bacteria. Leukocyte esterase and nitrite were negative. Procalcitonin level was 0.46. Microbiology is currently negative. The most recent chest x-ray dated February 12 shows bilateral infiltrates and pleural effusion. The chest x-ray is essentially unchanged from the prior chest x-ray. MEDICATIONS: Reviewed. Currently, the patient is on Tylenol, Cordarone, Eliquis, Pulmicort, Cardura, Lasix, and started Cardura, no Lasix, DuoNeb, Reglan, metoprolol, Narcan, Zofran, Protonix, Zosyn, potassium replacement, and his saline IV. ASSESSMENT: 1. Acute hypoxemic respiratory failure, secondary to aspiration pneumonia with bibasilar infiltrates. 2. History of esophageal cancer, status post chemotherapy and J-tube placement. 3. History of brain aneurysm, status post shock. 4. History of seizure disorder. 5. History of chronic atrial fibrillation with RVR. 6. Gastroesophageal reflux disease. 7. Sleep apnea syndrome. 8. Hypoxemic respiratory failure. 9. Combined respiratory and metabolic alkalosis. 10.Mild hypokalemia. PLAN: Currently, electrolytes are being replaced. The patient remains on AIRVO at 50 L/minute and 70%. At that time, he is on BiPAP at 10/5 and 50%. He remains on Cardizem at 10 mg an hour and amiodarone at 0.5 mg/minute. He is getting saline IV at 100 mL an hour. The patient is currently on Zosyn as an antibiotic. Culture data is thus far negative. We added Reglan 10 mg q.6h. Will resume tube feeds at 10 and 5-10 mL an hour. Additional recommendations and suggestions are forthcoming. Prognosis is guarded. Currently, the patient is a FULL CODE. We did discuss this with the patient. Critical care time 33 minutes. MMODL / IJN: [id number] /
--- NOTE | 2020-02-13 14:31 | P.PN ---
Subjective 64-year-old the male admitted for pneumonia bilateral, predominantly in the right lower lobes. There is a concern about aspiration patient has been vomiting. Patient does take a modified diet by mouth at home does have a PEG tube in place. Patient the antibiotics were changed to Zosyn which is appropriate. Patient went into respiratory distress on some requirements have gone up because of which patient was transferred to ICU later in the day patient started having A. fib with rapid ventricular rate because of which patient was started on Cardizem and cardiology was consulted. I'm also consulting speech therapy because of his swallowing issues to assess if her appropriate for the patient to be continued on modified diet by mouth. 02/13/2020 Patient clinically looks better patient is being continued on Zosyn continued on IV fluids. Patient will undergo swallow evaluation today speech therapy was consulted. Patient remains nothing by mouth patient is being started on Eliquis for the atrial fibrillation anticoagulation patient is presently on oral amiodarone heart rate is better controlled today Constitutional: Denied any fatigue denied any fever. Cardio vascular: denied any chest pain, palpitations Gastrointestinal denied any nausea vomiting Pulmonary: Denied any shortness of breath cough Neurologic denied any new focal deficits All inpatient medications were reviewed and appropriate changes in these medications as dictated in the interval history and assessment and plan. Objective - Vital Signs Vital signs: Vital Signs Temp 99.0 F 02/13/20 12:00 Pulse 79 02/13/20 12:00 Resp 27 H 02/13/20 12:00 BP 113/67 02/13/20 12:00 Pulse Ox 94 L 02/13/20 12:00 Intake & Output 02/12/20 02/13/20 02/13/20 18:59 06:59 18:59 Intake Total 1889.5 1409.833 775 Output Total 686 560 325 Balance 1203.5 849.833 450 Weight 60.5 kg 61.5 kg Intake: Intake, IV Titration 1889.5 1409.833 775 Amount Diltiazem 125 mg In 89.5 209.833 Sodium Chloride 0.9% 100 ml @ 15 MG/HR 15 mls/hr IV .[id number] [facility] Rx#: [id number] Piperacillin-Tazobactam 3 200 100 .375 gm In Sodium Chloride 0.9% 100 ml @ 25 mls/hr IVPB Q8HR [facility] Rx# :[id number] Potassium Chloride 10 meq 100 100 In Water For Injection 1 100ml.bag @ 100 mls/hr IVPB Q1H [facility] Rx#: [id number] Potassium Chloride 10 meq 500 In Water For Injection 1 100ml.bag @ 100 mls/hr IVPB Q1HR [facility] Rx#: [id number] Sodium Chloride 0.9% 1, 1000 1100 675 000 ml @ 75 mls/hr IV . [id number] [facility] Rx#:[id number] Output: Urine 671 560 325 Emesis 15 Other: Voiding Method Indwelling Catheter Indwelling Catheter Indwelling Catheter - Exam PHYSICAL EXAMINATION: GENERAL: The patient is alert and oriented x3, not in any acute distress. Well developed, well nourished. HEENT: Pupils are round and equally reacting to light. EOMI. No scleral icterus. No conjunctival pallor. Normocephalic, atraumatic. No pharyngeal erythema. No thyromegaly. CARDIOVASCULAR: S1 and S2 present. No murmurs, rubs, or gallops. PULMONARY: Diffuse bilateral rhonchi ABDOMEN: Soft, nontender, nondistended, normoactive bowel sounds. No palpable organomegaly. MUSCULOSKELETAL: No joint swelling or deformity. EXTREMITIES: No cyanosis, clubbing, or pedal edema. NEUROLOGICAL: Gross neurological examination did not reveal any focal deficits. SKIN: No rashes. - Labs CBC & Chem 7: 02/13/20 03:51 02/13/20 03:51 Labs: Abnormal Lab Results - Last 24 Hours (Table) 02/12/20 02/13/20 02/13/20 Range/Units 06:46 03:51 03:51 Hgb 12.3 L (13.0-17.5) gm/dL Lymphocytes # 0.6 L (1.0-4.8) k/uL PT (9.0-12.0) sec INR (<1.2) Chloride 109 H (98-107) mmol/L BUN 32 H (9-20) mg/dL Creatinine 0.61 L (0.66-1.25) mg/dL Glucose 129 H (74-99) mg/dL Procalcitonin 0.46 H (0.02-0.09) ng/mL 02/13/20 Range/Units 03:51 Hgb (13.0-17.5) gm/dL Lymphocytes # (1.0-4.8) k/uL PT 14.4 H (9.0-12.0) sec INR 1.5 H (<1.2) Chloride (98-107) mmol/L BUN (9-20) mg/dL Creatinine (0.66-1.25) mg/dL Glucose (74-99) mg/dL Procalcitonin (0.02-0.09) ng/mL Microbiology - Last 24 Hours (Table) 02/12/20 10:36 Gram Stain - Preliminary Sputum Sputum Culture - Preliminary 02/11/20 13:30 Gram Stain - Final Abdomen Wound Culture - Final 02/11/20 12:19 Blood Culture - Preliminary Blood No Growth after 24 hours Assessment and Plan Plan: -Acute hypoxic respiratory failure probably secondary to pneumonia predominantly in the right total patient does have pleural effusions on both sides. Patient is on Zosyn at this time there is a concern for aspiration. Patient is presently on high flow oxygen via [employer] cannula off BiPAP was on BiPAP last night -Atrial fibrillation with rapid ventricular rate. Patient is being switched to Eliquis. Patient is presently on amiodarone heart rate is fairly well controlled today gastroesophageal reflux disease Hypertension Abdomen benign prostatic hypertrophy -History of renal cancer and esophageal cancer with dysphagia and a PEG tube. Patient will be resumed on PEG tube feedings, speech therapy will be consulted because of his inability to swallow and patient does use modified diet at home by mouth -History of cerebral aneurysm.
[2020-02-13] MEDS: DOXAZOSIN 1 MG TAB PO SCH (21:43)
[2020-02-14] MEDS: PIPERACILLIN-TAZOBACTAM 3.375 GM in SODIUM CHLORIDE 0.9% 100 ML IVPB SCH ×3 (00:12→15:39)
[2020-02-14] MEDS: METOCLOPRAMIDE 5 MG/ML 2 ML VIAL IVP SCH ×4 (00:12→18:56)
[2020-02-14] MEDS ORDERED: ONDANSETRON 4 MG/2 ML VIAL IVP PRN (01:21)
[2020-02-14] MEDS ORDERED: NALOXONE 0.4 MG/ML 1 ML VIAL IV PRN (01:21)
[2020-02-14] MEDS ORDERED: METOPROLOL TARTRATE 50 MG TAB PO STA (01:40)
[2020-02-14 05:39] LABS: Basophils % (A) 0 %; Eosinophils # (A) 0.1 k/uL (0-0.7); Eosinophils % (A) 1 %; HGB 12.2 gm/dL (13.0-17.5); Hypochromasia Slight; Lymphocytes # (A) 0.7 k/uL (1.0-4.8); Lymphocytes % (A) 7 %; MCH 27.5 pg (25.0-35.0); MCHC 30.5 g/dL (31.0-37.0); MCV 90.1 fL (80.0-100.0); Mean Platelet Volume 7.8; Monocytes # (A) 0.6 k/uL (0-1.0); Monocytes % (A) 6 %; Neutrophils # (A) 8.6 k/uL (1.3-7.7); Neutrophils % (A) 86 %; Platelet Count 218 k/uL (150-450); RBC 4.44 m/uL (4.30-5.90); RDW 14.5 % (11.5-15.5)
[2020-02-14 06:04] LABS: African American GFR (CKD) >90 (>60 ml/min/1.73 sqM); Anion Gap 5 mmol/L; Blood Urea Nitrogen 25 mg/dL (9-20); Calcium 8.2 mg/dL (8.4-10.2); Carbon Dioxide 25 mmol/L (22-30); Chloride 112 mmol/L (98-107); Glucose 104 mg/dL (74-99); Non-African American GFR(CKD) >90 (>60 ml/min/1.73 sqM); Potassium 3.4 mmol/L (3.5-5.1); Sodium 142 mmol/L (137-145)
[2020-02-14] MEDS ORDERED: POTASSIUM BICARBONATE/CIT AC 20 MEQ TABLET.EFF PO ONE ×2 (06:28→21:30)
[2020-02-14] MEDS: IPRATROPIUM-ALBUTEROL 3 ML NEB INHALATION SCH ×4 (07:59→20:00)
[2020-02-14] MEDS: BUDESONIDE 1 MG/2 ML NEBU INHALATION SCH ×2 (08:00→20:00)
[2020-02-14] MEDS ORDERED: FUROSEMIDE 10 MG/ML 4 ML VIAL IV STA (08:42)
[2020-02-14] MEDS: SODIUM CHLORIDE 0.9% 1,000 ML IV SCH ×4 (08:44→21:11)
--- NOTE | 2020-02-14 09:15 | XR ---
EXAMINATION TYPE: XR chest 1V DATE OF EXAM: 02/14/2020 COMPARISON: 02/13/2020 HISTORY: Shortness of breath TECHNIQUE: Single frontal view of the chest is obtained. FINDINGS: [employer] shunt catheter noted and there is bilateral lower lobe. Small effusion. Heart size stab le. Postsurgical changes noted. No pneumothorax. Arthropathy of the shoulders. IMPRESSION: Stable diffuse pleural-parenchymal disease correlate for pneumonia.
[2020-02-14] MEDS: PANTOPRAZOLE 40 MG/10 ML VIAL IVP SCH (10:13)
[2020-02-14] MEDS: AMIODARONE 200 MG TAB PO SCH ×2 (10:16→20:31)
[2020-02-14] MEDS: APIXABAN 5 MG TAB PO SCH ×2 (10:16→20:31)
[2020-02-14] MEDS: METOPROLOL TARTRATE 50 MG TAB PO SCH ×3 (10:17→20:31)
--- NOTE | 2020-02-14 14:02 | PN ---
PROGRESS NOTE Mr. Jarquin is a 64-year-old male with a history of esophageal cancer, status post J- tube placement, who presented with pneumonia and episode of paroxysmal atrial fibrillation. He continues to have episode of paroxysmal atrial fibrillation throughout the night. Does not feel it. Overall he feels better. His breathing is better. He denies any symptoms of chest pain. He is feeling stronger. He denies any dizziness or palpitations. He continues to be at this time on amiodarone 400 mg twice a day, Eliquis 5 mg twice a day, metoprolol tartrate 50 mg twice a day. PHYSICAL EXAMINATION: Blood pressure 143/80 with a heart rate in the 80s. LUNGS: With mild decrease in the breath sounds, no wheezes. HEART: Regular rate and rhythm, S1, S2. No S3 with systolic murmur, no diastolic murmur, no rub. ABDOMEN: Soft, nontender. J-tube in place. EXTREMITIES: No edema. Chest x-ray revealed bilateral infiltrate. LAB DATA: Revealed a potassium 3.4. BUN and creatinine 25 and 0.56. His hemoglobin is 12.2, white blood cell . IMPRESSION: 1. Aspiration pneumonia with bilateral pneumonia. 2. Paroxysmal atrial fibrillation, anticoagulated, rate is controlled most of the time when he is in atrial fibrillation. 3. History of esophageal cancer and J-tube placement. 4. History of brain aneurysm in the past with no recent wheezing. RECOMMENDATION: From the cardiac standpoint, I will continue on the amiodarone at the present dose. I will increase the dose of his beta mirna. Continue the anticoagulation. Will replace his potassium. His beta mirna will be increased to 3 times a day to see if we can control the atrial fibrillation which most likely is going to be exacerbated by the pneumonia. Depending on his progress, further recommendation will be made. MMODL / IJN: [id number] /
--- NOTE | 2020-02-14 15:04 | PN ---
PROGRESS NOTE PULMONARY/CRITICAL CARE PROGRESS NOTE: DATE OF SERVICE: 02/14/2020 Critical care time 31 minute. INTERVAL HISTORY: This is a 64-year-old gentleman who was sees Dr. Claude Deluna. He was admitted in the emergency department with complaints of shortness of breath. He was initially brought in by EMS. He does have a history of esophageal cancer, status post chemotherapy and J tube placement as well as COPD and CHF. Currently, the patient is on AIRVO at 50 L/minute and 55%. Yesterday he was on 50 L/minute and 70%. He is getting saline at KVO. Tube feeds are running in at 5-10 mL an hour. He is currently on Zosyn. The patient will get Lasix 40 mg IV push. Currently, he is doing reasonably well. He has progressed but very very slowly. The patient had been on Cardizem for atrial fibrillation. That has been weaned off. He seems a bit more comfortable today. Chest x-ray does show diffuse bilateral infiltrates. We did add Reglan for possible gastroparesis and aspiration. PHYSICAL EXAMINATION: VITAL SIGNS: Current vital signs are reviewed. Temperature 98.3, heart rate 85, respiratory rate 26, blood pressure 143/89, mean 107, saturations are 98%. Appears in no acute distress. HEENT: Examination is grossly unremarkable. AIRVO cannula in place. NECK: Supple. Full range of motion. No adenopathy or thyromegaly. Neck veins are flat. CARDIOVASCULAR: Examination reveals regular rhythm and rate. Heart rate is about 90 beats per minute. S1, S2 normal. Heart sounds are distant. LUNGS: Reveal diffuse coarse bilateral rhonchi. Breath sounds equal but diminished throughout. Some expiratory wheezes are noted. No crackles. ABDOMEN: Soft. Bowel sounds are noted. J-tube noted. EXTREMITIES: Intact. No edema. SKIN: Without rash. NEUROLOGIC: Examination is nonfocal. LABS: Reviewed. White count 10, hemoglobin 12.2, hematocrit 40, platelet count 318,000. PT/INR were 14.4 and 1.5. Sodium 142, potassium 3.4, chloride 112, CO2 25, anion gap is 5. BUN and creatinine were 25 and 0.56. Microbiology is negative including sputum and blood. IMAGING: A chest x-ray done February 13 shows diffuse stable bilateral pleural parenchymal infiltrates. CURRENT MEDICATIONS: Reviewed. The patient is currently on Tylenol, amiodarone, Eliquis, Pulmicort, Cardura, Lasix x1, DuoNeb, Reglan, metoprolol, Narcan, Zofran, Protonix, Zosyn, potassium replacement, and saline IV at KVO. ASSESSMENT: 1. Acute hypoxemic respiratory failure secondary to aspiration pneumonia with bibasilar infiltrates, currently rate requiring AIRVO. 2. History of esophageal cancer, status post chemotherapy and J tube placement. 3. History of brain aneurysm, status post shunt. 4. History of seizure disorder. 5. History of chronic atrial fibrillation/rapid ventricular response. 6. Gastroesophageal reflux disease. 7. Sleep apnea syndrome. 8. Hypoxemic respiratory failure. 9. Combined respiratory and metabolic alkalosis. 10.Mild hypokalemia. PLAN: Currently, the patient is doing better. He has been weaned from 50 L/minute and 70% AIRVO to 50 L/minute and 55% AIRVO. The patient continues on Zosyn. The patient gets Lasix 40 mg IV push. We will continue trickle tube feedings at 5-10 mL an hour. We will continue with daily chest x-rays. Additional recommendations and suggestions are forthcoming. . MMODL / IJN: [id number] /
--- NOTE | 2020-02-14 19:19 | P.GSCN ---
History of Present Illness Consult date: 02/14/20 Reason for Consult: Leaking J-tube History of present illness: 64-year-old male underwent esophageal resection at [facility] 2017. Ov er the last 6 months or so the patient has had episodes of recurrent pneumonia. During a October visit he was seen in consultation by Dr. Morales. He was transferred back to [facility] where he underwent further workup. According to the the patient was found to have some angulation to his gastric pull through leading to some degree of obstruction. The patient had a jejunostomy feeding tube placed in the left midabdomen at that time surgically. He came back to the hospital with shortness of breath. While here the patient was noted to have bilious drainage around his J-tube. His states this is a new problem and hay has not been having issues recently. Review of Systems The patient denies any acute changes in vision or hearing, no dysuria or hematuria, no headache, no runny nose, no rectal bleeding or melena, no unexplained weight loss Past Medical History Past Medical History: Atrial Fibrillation, Cancer, GERD/Reflux, Hypertension, Memory Impairment, Pneumonia, Prostate Disorder, Seizure Disorder, Sleep Apnea/CPAP/BIPAP Additional Past Medical History / Comment(s): Dysphagia, Hx Esophageal Cancer, was Reconstructed (Chemo/Radiation 2016) - aspiration Pneumonia x3, has hiatal hernia, J-tube - gets Jevity tube feed. A-Fib x2. Hx cerebral aneurysm rupture 1994 est, has shunt - residual short term memory impairment/comprehension/balance problems @ times, Lt sided neglect, hx petit mal seizure - last 1999. Hx blood in urine, d/c'd Coumadin 12/12/19. HTN Rx d/c'd. 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 Able to eat small amounts of liquids, soft strained foods very slowly. History of Any Multi-Drug Resistant Organisms: None Reported Past Surgical History: Cholecystectomy, Joint Replacement Additional Past Surgical History / Comment(s): Hx fx Lt hip - Partial Lt Hip Replacement. Reconstruction of Esophagus [id number]. Repair of Aneurysm w/clip, has Brain Shunt - not sure if still functions, Repair Torn Retina. PEG tubes x3; J-tube placed 11/2019., RIGHT partial nephrectomy 12/2019. Past Anesthesia/Blood Transfusion Reactions: Previous Problems w/ Anesthesia, Motion Sickness Additional Past Anesthesia/Blood Transfusion Reaction / Comm: Very slow to wake up - doesn't need much per spouse. Past Psychological History: Anxiety Additional Psychological History / Comment(s): SPOUSE STATES ESPECIALLY WHEN HE DOES NOT SEE HER Smoking Status: Never smoker Past Alcohol Use History: Rare Additional Past Alcohol Use History / Comment(s): smoked occasional cigars 30 yrs. ago, AND CHEWED TOBACCO, Past Drug Use History: None Reported Additional Drug Use History / Comment(s): Rare CBD oil use - Past Family History Mother Family Medical History: Myocardial Infarction ([place]), Osteoarthritis ([place]) Medications and Allergies Home Medications Medication Instructions Recorded Confirmed Type Omeprazole 20 mg PO DAILY 12/04/19 02/11/20 History Terazosin [Hytrin] 1 mg PEG/G-TUBE HS 12/04/19 02/11/20 History Lactose-Reduced Food/Fiber [Jevity 1,200 ml PEJ/J-TUBE DIRECTED 12/28/19 02/11/20 History 1.2 Ayaan Liquid] Aspirin 81 mg PEG/G-TUBE DAILY 02/11/20 02/11/20 History Multivitamin Chewable 1 tab PO DAILY 02/11/20 02/11/20 History Vitamin B-12 500mcg Sublingual 1,000 mcg PO DAILY 02/11/20 02/11/20 History Tablet Vitamin C Chewable Tablet (Unknown 1 tab PO DAILY 02/11/20 02/11/20 History Strength) Warfarin [Coumadin] 2.5 mg PEG/G-TUBE HS 02/11/20 02/11/20 History Apixaban [Eliquis] 5 mg PO BID #60 tab 02/13/20 Rx Allergies Allergy/AdvReac Type Severity Reaction Status Date / Time No Known Allergies Allergy Verified 02/11/20 10:45 Surgical - Exam Vital Signs Temp Pulse Resp BP Pulse Ox 98.5 F 101 H 18 131/91 96 02/11/20 09:41 02/11/20 09:41 02/11/20 09:41 02/11/20 09:41 02/11/20 09:41 Physical exam: General: Elderly male slightly malnourished appearing HEENT: Normocephalic, sclerae nonicteric Abdomen: Nontender, nondistended, previous scars noted, left-sided SEJAL tube in place, difficult to say whether this is a J or G-tube SEJAL tube. Bilious fluid around the 10-Serbian catheter. Bolster was quite loose. Able to tube in without meeting resistance. Extremities: No edema Neuro: Alert and oriented Results - Labs 02/14/20 04:21 02/14/20 04:21 Abnormal Lab Results - Last 24 Hours (Table) 02/14/20 02/14/20 Range/Units 04:21 04:21 Hgb 12.2 L (13.0-17.5) gm/dL MCHC 30.5 L (31.0-37.0) g/dL Neutrophils # 8.6 H (1.3-7.7) k/uL Lymphocytes # 0.7 L (1.0-4.8) k/uL Potassium 3.4 L (3.5-5.1) mmol/L Chloride 112 H (98-107) mmol/L BUN 25 H (9-20) mg/dL Creatinine 0.56 L (0.66-1.25) mg/dL Glucose 104 H (74-99) mg/dL Calcium 8.2 L (8.4-10.2) mg/dL Microbiology - Last 24 Hours (Table) 02/11/20 12:19 Blood Culture - Preliminary Blood No Growth after 72 hours 02/12/20 10:36 Gram Stain - Final Sputum Sputum Culture - Final Diabetes panel 02/14/20 Range/Units 04:21 Sodium 142 (137-145) mmol/L Potassium 3.4 L (3.5-5.1) mmol/L Chloride 112 H (98-107) mmol/L Carbon Dioxide 25 (22-30) mmol/L BUN 25 H (9-20) mg/dL Creatinine 0.56 L (0.66-1.25) mg/dL Glucose 104 H (74-99) mg/dL Calcium 8.2 L (8.4-10.2) mg/dL Calcium panel 02/14/20 Range/Units 04:21 Calcium 8.2 L (8.4-10.2) mg/dL Pituitary panel 02/14/20 Range/Units 04:21 Sodium 142 (137-145) mmol/L Potassium 3.4 L (3.5-5.1) mmol/L Chloride 112 H (98-107) mmol/L Carbon Dioxide 25 (22-30) mmol/L BUN 25 H (9-20) mg/dL Creatinine 0.56 L (0.66-1.25) mg/dL Glucose 104 H (74-99) mg/dL Calcium 8.2 L (8.4-10.2) mg/dL Adrenal panel 02/14/20 Range/Units 04:21 Sodium 142 (137-145) mmol/L Potassium 3.4 L (3.5-5.1) mmol/L Chloride 112 H (98-107) mmol/L Carbon Dioxide 25 (22-30) mmol/L BUN 25 H (9-20) mg/dL Creatinine 0.56 L (0.66-1.25) mg/dL Glucose 104 H (74-99) mg/dL Calcium 8.2 L (8.4-10.2) mg/dL Assessment and Plan (1) Jejunostomy tube leak Narrative/Plan: 64-year-old male with some drainage around his J-tube. The bolster was tightened at the bedside. Hopefully this can correct the problem. Per the family the balloon has not been loosened or tightened since it was placed. If symptoms persist we'll order CT abdomen and pelvis. Current Visit: Yes Status: Acute Code(s): K94.13 - ENTEROSTOMY MALFUNCTION SNOMED Code(s): 092365832
[2020-02-14] MEDS: DOXAZOSIN 1 MG TAB PO SCH (20:31)
[2020-02-15 04:35] LABS: Basophils % (A) 0 %; Eosinophils # (A) 0.2 k/uL (0-0.7); Eosinophils % (A) 1 %; HCT 41.2 % (39.0-53.0); HGB 12.8 gm/dL (13.0-17.5); Hypochromasia Slight; Lymphocytes # (A) 0.6 k/uL (1.0-4.8); Lymphocytes % (A) 5 %; MCH 27.9 pg (25.0-35.0); MCHC 31.2 g/dL (31.0-37.0); MCV 89.4 fL (80.0-100.0); Mean Platelet Volume 7.7; Monocytes # (A) 0.6 k/uL (0-1.0); Monocytes % (A) 5 %; Neutrophils # (A) 9.3 k/uL (1.3-7.7); Neutrophils % (A) 87 %; Platelet Count 224 k/uL (150-450); RBC 4.61 m/uL (4.30-5.90); RDW 14.3 % (11.5-15.5); WBC 10.7 k/uL (3.8-10.6)
[2020-02-15 04:57] LABS: African American GFR (CKD) >90 (>60 ml/min/1.73 sqM); Anion Gap 6 mmol/L; Blood Urea Nitrogen 18 mg/dL (9-20); Calcium 8.2 mg/dL (8.4-10.2); Carbon Dioxide 28 mmol/L (22-30); Chloride 106 mmol/L (98-107); Glucose 121 mg/dL (74-99); Non-African American GFR(CKD) >90 (>60 ml/min/1.73 sqM); Potassium 3.4 mmol/L (3.5-5.1); Sodium 140 mmol/L (137-145)
[2020-02-15] MEDS ORDERED: POTASSIUM BICARBONATE/CIT AC 20 MEQ TABLET.EFF PO ONE (05:02)
[2020-02-15] MEDS: METOCLOPRAMIDE 5 MG/ML 2 ML VIAL IVP SCH ×4 (06:11→17:05)
[2020-02-15] MEDS: BUDESONIDE 1 MG/2 ML NEBU INHALATION SCH ×2 (08:23→20:02)
[2020-02-15] MEDS: IPRATROPIUM-ALBUTEROL 3 ML NEB INHALATION SCH ×4 (08:23→20:02)
[2020-02-15] MEDS ORDERED: FUROSEMIDE 10 MG/ML 2 ML VIAL IV ONE (08:38)
--- NOTE | 2020-02-15 08:44 | PN ---
PROGRESS NOTE Mr. Jarquin is a 64-year-old male with history of esophageal cancer, status post J-tube placement, history of paroxysmal atrial fibrillation, who presented with pneumonia. He was on high-flow oxygen earlier. He is on nasal cannula at this time. He is feeling better. He is in sinus mechanism most of the time. He has no significant atrial fibrillation. He denies any dizziness or palpitation. He denies any nausea. He feels better with improvement in his energy. His cough is better. He is feeling stronger. He was sitting up in the chair yesterday and had a bowel movement. He continues to be on amiodarone 400 mg twice a day, Eliquis 5 mg twice a day, metoprolol tartrate 50 mg 3 times a day. PHYSICAL EXAMINATION: VITAL SIGNS: Blood pressure 131/80 with a heart rate in the 80s. LUNGS: Clear with decreased breath sounds, but no wheezes. CARDIOVASCULAR SYSTEM: S1, S2. No S3 with systolic murmur. No diastolic murmur. ABDOMEN: Soft. J-tube in place. No organomegaly. EXTREMITIES: No edema. LAB DATA: With BUN and creatine of 18 and 0.58, potassium of 3.4, hemoglobin of 12.8. White blood cell of 10.7. IMAGING: Chest x-ray shows evidence of pleural effusion, more noted on the right side. Pleural- parenchymal changes in the lower lobe. IMPRESSION: 1. Status post bilateral pneumonia, improving. 2. Paroxysmal atrial fibrillation. Remains in sinus mechanism at this time. 3. History of esophageal cancer, status post J-tube placement. 4. History of brain aneurysm with no recent bleeding. 5. History of seizure disorder. RECOMMENDATION: From the cardiac standpoint, will continue to increase his level of activity. I discussed with him the issue of anticoagulation. He is in agreement to continue on the Eliquis at this time. I will continue the present dose of amiodarone for 72 hours and then cut it down to 200 mg twice a day. We will follow his blood pressure and heart rate and depending on that, further adjustment of his regimen will be made. MMODL / IJN: [id number] /
[2020-02-15] MEDS: AMIODARONE 200 MG TAB PO SCH ×2 (08:45→22:01)
[2020-02-15] MEDS: APIXABAN 5 MG TAB PO SCH ×2 (08:45→22:02)
[2020-02-15] MEDS: PIPERACILLIN-TAZOBACTAM 3.375 GM in SODIUM CHLORIDE 0.9% 100 ML IVPB SCH ×4 (08:45→16:53)
[2020-02-15] MEDS: METOPROLOL TARTRATE 50 MG TAB PO SCH ×3 (08:46→22:02)
[2020-02-15] MEDS: PANTOPRAZOLE 40 MG/10 ML VIAL IVP SCH (08:46)
--- NOTE | 2020-02-15 10:19 | XR ---
EXAMINATION TYPE: XR chest 1V DATE OF EXAM: 02/15/2020 COMPARISON: Prior chest x-ray 02/14/2020 HISTORY: Difficulty breathing TECHNIQUE: Single frontal view of the chest is obtained. FINDINGS: Bibasilar increased attenuation is again seen. There are overlying leads, ventriculoperito gemma shunt tubing again seen over the right chest and neck. Patient is rotated. There is no evident p neumothorax. Heart is obscured. Patient with known diaphragmatic hernia. IMPRESSION: Findings are not significantly changed. Basilar effusions and associated atelectasis kim rojas pneumonia or edema
--- NOTE | 2020-02-15 10:23 | P.PN ---
Subjective Progress Note Date: 02/15/20 Principal diagnosis: Acute hypoxic respiratory failure secondary to aspiration pneumonia This is a 64-year-old white male patient of Dr. Claude Deluna that was admitted through the emergency department on 02/11/2020 when he came in for evaluation of shortness of breath, hypoxemia. Patient has a known history of esophageal cancer status post chemotherapy and NG tube placement, has a known history of COPD and CHF. Patient was started on empiric antibiotics in the form of Zosyn, nebulized bronchodilators, and diuretics, did require high flow oxygen per Airvo, which was discontinued yesterday, patient is currently on 6 L of oxygen per high flow nasal cannula with a pulse ox of 93-95%, his tube feedings were held yesterday related to some leaking around the bolster, surgical services were consulted and Dr. Styles adjusted the bolster, and tube feedings were resumed today, with TwoCal HN currently at 10 ML per hour. Of note previously patient was receiving tube feedings and consuming some nausea fluids by mouth. He is currently strict nothing by mouth, and receiving all of his nutrition via his J-tube. He is sounding much less congested today, bronchospastic, breathing easier, more comfortably, he sitting up in the chair. His vital signs are stable, his been afebrile, hemodynamically stable, 0.9 normal saline infusing at a rate of 20 ML per hour, yesterday he received a dose of Lasix, and he produces 2.8 L and urine output, he is -1.4 L over last 24 hours, indwelling catheter is in place. On admission patient was in A. fib with RVR, he is currently in sinus mechanism, he is on oral amiodarone and Eliquis for anticoagulation, cardiology services are following. Today's chest x-ray has been reviewed, showing stable diffuse pleural parenchymal disease related to aspiration pneumonia. Today's labs have been reviewed, showing white blood cell, 10.7, hemoglobin of 12.8, sodium is 140, potassium is 3.4, the rest of electrolytes were within normal limits, BUN is 18 creatinine 0.58. All microbiology has shown no growth. He is on Zosyn for antibiotic coverage. Objective - Vital Signs Vital signs: Vital Signs Temp 96.8 F L 02/15/20 08:00 Pulse 81 02/15/20 08:32 Resp 27 H 02/15/20 08:00 BP 130/83 02/15/20 08:00 Pulse Ox 93 L 02/15/20 08:00 Intake & Output 02/14/20 02/15/20 02/15/20 18:59 06:59 18:59 Intake Total 775 630 150 Output Total 2200 625 120 Balance -1425 5 30 Intake: IV 550 440 140 Piperacillin-Tazobactam 3 200 200 100 .375 gm In Sodium Chloride 0.9% 100 ml @ 25 mls/hr IVPB Q8HR [facility] Rx# :[id number] Sodium Chloride 0.9% 1, 350 240 40 000 ml @ 20 mls/hr IV . Q24H EDER Rx#:[id number] Tube Feeding 65 140 10 Other 160 50 Output: Urine 2150 625 120 Other 50 Other: Voiding Method Indwelling Catheter Indwelling Catheter # Bowel Movements 1 - Exam GENERAL EXAM: Alert, very pleasant, frail-looking 64-year-old white male, he currently on 6 L per high flow nasal cannula with a pulse ox of 93%, comfortable in no apparent distress. HEAD: Normocephalic/atraumatic. EYES: Normal reaction of pupils, equal size. Conjunctiva pink, sclera white. NOSE: Clear with pink turbinates. THROAT: No erythema or exudates. NECK: No masses, no JVD, no thyroid enlargement, no adenopathy. CHEST: No chest wall deformity. Symmetrical expansion. LUNGS: Equal air entry with scattered wheezes and rhonchi, improved CVS: Regular rate and rhythm, normal S1 and S2, no gallops, no murmurs, no rubs ABDOMEN: Soft, nontender. No hepatosplenomegaly, normal bowel sounds, no guarding or rigidity. G-tube is in place, with the tube feedings infusing, TwoCal HN at a rate of 10 ML per hour EXTREMITIES: No clubbing, no edema, no cyanosis, 2+ pulses and upper and lower extremities. MUSCULOSKELETAL: Muscle strength and tone normal. SPINE: No scoliosis or deformity SKIN: No rashes CENTRAL NERVOUS SYSTEM: Alert and oriented -3. No focal deficits, tone is normal in all 4 extremities. PSYCHIATRIC: Alert and oriented -3. Appropriate affect. Intact judgment and insight. - Labs CBC & Chem 7: 02/15/20 03:51 02/15/20 03:51 Labs: Abnormal Lab Results - Last 24 Hours (Table) 02/14/20 02/15/20 02/15/20 Range/Units 20:28 03:51 03:51 WBC 10.7 H (3.8-10.6) k/uL Hgb 12.8 L (13.0-17.5) gm/dL Neutrophils # 9.3 H (1.3-7.7) k/uL Lymphocytes # 0.6 L (1.0-4.8) k/uL Potassium 3.2 L 3.4 L (3.5-5.1) mmol/L Creatinine 0.58 L (0.66-1.25) mg/dL Glucose 121 H (74-99) mg/dL Calcium 8.2 L (8.4-10.2) mg/dL Microbiology - Last 24 Hours (Table) 02/14/20 17:54 Gram Stain - Preliminary Abdomen Wound Culture - Preliminary 02/11/20 12:19 Blood Culture - Preliminary Blood No Growth after 72 hours 02/12/20 10:36 Gram Stain - Final Sputum Sputum Culture - Final Assessment and Plan Plan: Assessment: #1. Acute hypoxemic respiratory failure secondary to aspiration pneumonia with bibasilar infiltrates, currently down to 6 L per high flow nasal cannula #2. History of esophageal cancer, status post chemotherapy NG tube placement #3. History of recurrent aspiration #4. History of seizure disorder #5. History of brain aneurysm #6. History of chronic atrial fibrillation, with RVR on admission, currently in sinus mechanism, with occasional bursts of A. fib, controlled, on amiodarone and Eliquis #7. GERD/reflux #8. Sleep apnea syndrome #9. Mild hypokalemia related to diuretic therapy, corrected per protocol Plan: We'll give the patient additional dose of IV Lasix today, patient has diuresed, FiO2 is down, continue weaning FiO2, and aspiration precautions, continue nebulized bronchodilators, may advance tube feedings however this needs to be done very carefully, and very slowly. Continue IV Reglan, encouraged patient to sit up in the chair, physical therapy consultation. Hemodynamically stable, patient is afebrile, continue with current antibiotic coverage, will continue to monitor patient in the intensive care unit I performed a history & physical examination of the patient and discussed their management with my nurse practitioner, Miracle Duncan. I reviewed the nurse practitioner's note and agree with the documented findings and plan of care. Lung sounds are positive for diffuse wheezes throughout the lung otero. The findings and the impression was discussed with the patient. I attest to the documentation by the nurse practitioner. Time with Patient: Less than 30
--- NOTE | 2020-02-15 13:58 | P.PN ---
Subjective Progress Note Date: 02/15/20 Principal diagnosis: Leaking J-tube Patient apparently did well overnight. Tube feeds currently at 20 mL. No further bilious drainage from around the jejunostomy site. No pain. Objective - Vital Signs Vital signs: Vital Signs Temp 97.8 F 02/15/20 12:00 Pulse 75 02/15/20 12:00 Resp 29 H 02/15/20 12:00 BP 120/71 02/15/20 12:00 Pulse Ox 94 L 02/15/20 12:00 Intake & Output 02/14/20 02/15/20 02/15/20 18:59 06:59 18:59 Intake Total 775 630 340 Output Total 2200 625 820 Balance -1425 5 -480 Weight 62 kg Intake: IV 550 440 220 Piperacillin-Tazobactam 3 200 200 100 .375 gm In Sodium Chloride 0.9% 100 ml @ 25 mls/hr IVPB Q8HR [facility] Rx# :[id number] Sodium Chloride 0.9% 1, 350 240 120 000 ml @ 20 mls/hr IV . Q24H [facility] Rx#:[id number] Tube Feeding 65 140 80 Other 160 50 40 Output: Urine 2150 625 820 Other 50 Other: Voiding Method Indwelling Catheter Indwelling Catheter Indwelling Catheter # Bowel Movements 1 - Exam Abdomen: Soft, nondistended, J-tube site without drainage or tenderness - Labs CBC & Chem 7: 02/15/20 03:51 02/15/20 03:51 Labs: Abnormal Lab Results - Last 24 Hours (Table) 02/14/20 02/15/20 02/15/20 Range/Units 20:28 03:51 03:51 WBC 10.7 H (3.8-10.6) k/uL Hgb 12.8 L (13.0-17.5) gm/dL Neutrophils # 9.3 H (1.3-7.7) k/uL Lymphocytes # 0.6 L (1.0-4.8) k/uL Potassium 3.2 L 3.4 L (3.5-5.1) mmol/L Creatinine 0.58 L (0.66-1.25) mg/dL Glucose 121 H (74-99) mg/dL Calcium 8.2 L (8.4-10.2) mg/dL Microbiology - Last 24 Hours (Table) 02/14/20 17:54 Gram Stain - Preliminary Abdomen Wound Culture - Preliminary 02/11/20 12:19 Blood Culture - Preliminary Blood No Growth after 72 hours 02/12/20 10:36 Gram Stain - Final Sputum Sputum Culture - Final Assessment and Plan (1) Jejunostomy tube leak Narrative/Plan: Continue gradually advancing tube feeds. Keep bolster up against the skin with drain sponge. Will follow. Current Visit: Yes Status: Acute Code(s): K94.13 - ENTEROSTOMY MALFUNCTION SNOMED Code(s): 862979796
--- NOTE | 2020-02-15 20:58 | P.PN ---
Subjective Progress Note Date: 02/14/20 Principal diagnosis: Acute hypoxic respiratory failure probably secondary to pneumonia 64-year-old the male admitted for pneumonia bilateral, predominantly in the right lower lobes. There is a concern about aspiration patient has been vomiting. Patient does take a modified diet by mouth at home does have a PEG tube in place. Patient the antibiotics were changed to Zosyn which is appropriate. Patient went into respiratory distress on some requirements have gone up because of which patient was transferred to ICU later in the day patient started having A. fib with rapid ventricular rate because of which patient was started on Cardizem and cardiology was consulted. I'm also consulting speech therapy because of his swallowing issues to assess if her appropriate for the patient to be continued on modified diet by mouth. 02/13/2020 Patient clinically looks better patient is being continued on Zosyn continued on IV fluids. Patient will undergo swallow evaluation today speech therapy was consulted. Patient remains nothing by mouth patient is being started on Eliquis for the atrial fibrillation anticoagulation patient is presently on oral amiodarone heart rate is better controlled today. On 02/14/2020 Patient is currently sitting in the chair comfortably. Still having baseline shortness of breath and bibasilar crackles on examination. Currently on high flow oxygen. Chest x-ray showed findings are not significantly changed. Basilar effusions and associated atelectasis versus pulmonary edema. Patient is being continued on IV antibiotic without Zosyn for possible aspiration and also a dose of Lasix IV was given. Patient has been continued on telemetry monitoring and heart rate is better controlled. Current medications reviewed. Constitutional: Denied any fatigue denied any fever. Cardio vascular: denied any chest pain, palpitations Gastrointestinal denied any nausea vomiting Pulmonary: Denied any shortness of breath cough Neurologic denied any new focal deficits All inpatient medications were reviewed and appropriate changes in these medications as dictated in the interval history and assessment and plan. Objective - Vital Signs Vital signs: Vital Signs Temp 98.3 F 02/14/20 08:00 Pulse 87 02/14/20 10:00 Resp 35 H 02/14/20 10:00 BP 140/87 02/14/20 10:00 Pulse Ox 97 02/14/20 09:00 Intake & Output 02/13/20 02/14/20 02/14/20 18:59 06:59 18:59 Intake Total 1225 1095 340 Output Total 565 720 245 Balance 660 375 95 Weight 62 kg 62 kg Intake: IV 1010 290 Piperacillin-Tazobactam 3 200 100 .375 gm In Sodium Chloride 0.9% 100 ml @ 25 mls/hr IVPB Q8HR [facility] Rx# :[id number] Sodium Chloride 0.9% 1, 810 190 000 ml @ 20 mls/hr IV . Q24H [facility] Rx#:[id number] Intake, IV Titration 1225 Amount Piperacillin-Tazobactam 3 100 .375 gm In Sodium Chloride 0.9% 100 ml @ 25 mls/hr IVPB Q8HR [facility] Rx# :[id number] Sodium Chloride 0.9% 1, 1125 000 ml @ 20 mls/hr IV . Q24H [facility] Rx#:[id number] Tube Feeding 55 30 Other 30 20 Output: Urine 565 720 245 Other: Voiding Method Indwelling Catheter Indwelling Catheter - Exam PHYSICAL EXAMINATION: GENERAL: The patient is alert and oriented x3, not in any acute distress. Well developed, well nourished. HEENT: Pupils are round and equally reacting to light. EOMI. No scleral icterus. No conjunctival pallor. Normocephalic, atraumatic. No pharyngeal erythema. No thyromegaly. CARDIOVASCULAR: S1 and S2 present. No murmurs, rubs, or gallops. PULMONARY: Bibasilar crackles and scattered rhonchi. ABDOMEN: Soft, nontender, nondistended, normoactive bowel sounds. No palpable organomegaly. MUSCULOSKELETAL: No joint swelling or deformity. EXTREMITIES: No cyanosis, clubbing, or pedal edema. NEUROLOGICAL: Gross neurological examination did not reveal any focal deficits. SKIN: No rashes. - Labs CBC & Chem 7: 02/15/20 03:51 02/15/20 03:51 Labs: Abnormal Lab Results - Last 24 Hours (Table) 02/14/20 02/14/20 Range/Units 04:21 04:21 Hgb 12.2 L (13.0-17.5) gm/dL MCHC 30.5 L (31.0-37.0) g/dL Neutrophils # 8.6 H (1.3-7.7) k/uL Lymphocytes # 0.7 L (1.0-4.8) k/uL Potassium 3.4 L (3.5-5.1) mmol/L Chloride 112 H (98-107) mmol/L BUN 25 H (9-20) mg/dL Creatinine 0.56 L (0.66-1.25) mg/dL Glucose 104 H (74-99) mg/dL Calcium 8.2 L (8.4-10.2) mg/dL Microbiology - Last 24 Hours (Table) 02/11/20 12:19 Blood Culture - Preliminary Blood No Growth after 48 hours 02/12/20 10:36 Gram Stain - Preliminary Sputum Sputum Culture - Preliminary 02/11/20 13:30 Gram Stain - Final Abdomen Wound Culture - Final Assessment and Plan Assessment: -Acute hypoxic respiratory failure probably secondary to pneumonia predominantly in the right. patient does have pleural effusions on both sides. Patient is on Zosyn at this time there is a concern for aspiration. Patient is presently on high flow oxygen via [employer] cannula off BiPAP was on BiPAP last night -Atrial fibrillation with rapid ventricular rate. Patient is being switched to Eliquis. Patient is presently on amiodarone heart rate is fairly well controlled today -gastroesophageal reflux disease -Hypertension -benign prostatic hypertrophy -History of renal cancer and esophageal cancer with dysphagia and a PEG tube. Patient will be resumed on PEG tube feedings, speech therapy will be consulted because of his inability to swallow and patient does use modified diet at home by mouth -History of cerebral aneurysm. -KAROL Time with Patient: Greater than 30
[2020-02-15] MEDS: SODIUM CHLORIDE 0.9% 1,000 ML IV SCH (21:40)
[2020-02-15] MEDS: DOXAZOSIN 1 MG TAB PO SCH (22:01)
[2020-02-16] MEDS: PIPERACILLIN-TAZOBACTAM 3.375 GM in SODIUM CHLORIDE 0.9% 100 ML IVPB SCH ×3 (01:04→16:08)
[2020-02-16] MEDS: METOCLOPRAMIDE 5 MG/ML 2 ML VIAL IVP SCH ×4 (01:05→17:54)
[2020-02-16] MEDS: POTASSIUM BICARBONATE/CIT AC 20 MEQ TABLET.EFF NG-TUBE SCH ×2 (03:25→03:53)
[2020-02-16 05:40] LABS: HCT 39.2 % (39.0-53.0); MCH 27.3 pg (25.0-35.0); MCHC 30.8 g/dL (31.0-37.0); MCV 88.8 fL (80.0-100.0); Mean Platelet Volume 7.6; Platelet Count 253 k/uL (150-450); RBC 4.41 m/uL (4.30-5.90); RDW 14.5 % (11.5-15.5)
[2020-02-16 05:50] LABS: African American GFR (CKD) >90 (>60 ml/min/1.73 sqM); Anion Gap 1 mmol/L; Blood Urea Nitrogen 16 mg/dL (9-20); Calcium 8.4 mg/dL (8.4-10.2); Carbon Dioxide 31 mmol/L (22-30); Chloride 106 mmol/L (98-107); Glucose 128 mg/dL (74-99); Non-African American GFR(CKD) >90 (>60 ml/min/1.73 sqM); Potassium 4.2 mmol/L (3.5-5.1); Sodium 138 mmol/L (137-145)
[2020-02-16] MEDS: BUDESONIDE 1 MG/2 ML NEBU INHALATION SCH ×2 (07:50→20:06)
[2020-02-16] MEDS: IPRATROPIUM-ALBUTEROL 3 ML NEB INHALATION SCH ×4 (07:50→20:06)
[2020-02-16] MEDS: APIXABAN 5 MG TAB PO SCH ×2 (08:58→22:02)
[2020-02-16] MEDS: AMIODARONE 200 MG TAB PO SCH ×2 (08:58→22:02)
[2020-02-16] MEDS: METOPROLOL TARTRATE 50 MG TAB PO SCH ×3 (08:58→22:02)
[2020-02-16] MEDS: PANTOPRAZOLE 40 MG/10 ML VIAL IVP SCH (08:58)
--- NOTE | 2020-02-16 09:20 | P.PN ---
Progress Note - Text Progress Note Date: 02/16/20 The patient is resting comfortably his bed. He denies any abdominal pain. On exam abdomen soft. G-tube site is clean dry and there is no incision any leaking of tube feed or enteric contents. Patient is tolerating his feeding tube. He'll continue to be observed.
--- NOTE | 2020-02-16 09:41 | P.PN ---
Subjective Progress Note Date: 02/16/20 Principal diagnosis: Acute hypoxic respiratory failure secondary to aspiration pneumonia This is a 64-year-old white male patient of Dr. Claude Deluna that was admitted through the emergency department on 02/11/2020 when he came in for evaluation of shortness of breath, hypoxemia. Patient has a known history of esophageal cancer status post chemotherapy and NG tube placement, has a known history of COPD and CHF. Patient was started on empiric antibiotics in the form of Zosyn, nebulized bronchodilators, and diuretics, did require high flow oxygen per Airvo, which was discontinued yesterday, patient is currently on 6 L of oxygen per high flow nasal cannula with a pulse ox of 93-95%, his tube feedings were held yesterday related to some leaking around the bolster, surgical services were consulted and Dr. Styles adjusted the bolster, and tube feedings were resumed today, with TwoCal HN currently at 10 ML per hour. Of note previously patient was receiving tube feedings and consuming some nausea fluids by mouth. He is currently strict nothing by mouth, and receiving all of his nutrition via his J-tube. He is sounding much less congested today, bronchospastic, breathing easier, more comfortably, he sitting up in the chair. His vital signs are stable, his been afebrile, hemodynamically stable, 0.9 normal saline infusing at a rate of 20 ML per hour, yesterday he received a dose of Lasix, and he produces 2.8 L and urine output, he is -1.4 L over last 24 hours, indwelling catheter is in place. On admission patient was in A. fib with RVR, he is currently in sinus mechanism, he is on oral amiodarone and Eliquis for anticoagulation, cardiology services are following. Today's chest x-ray has been reviewed, showing stable diffuse pleural parenchymal disease related to aspiration pneumonia. Today's labs have been reviewed, showing white blood cell, 10.7, hemoglobin of 12.8, sodium is 140, potassium is 3.4, the rest of electrolytes were within normal limits, BUN is 18 creatinine 0.58. All microbiology has shown no growth. He is on Zosyn for antibiotic coverage. The patient is seen today 02/16/2020 in follow-up in the intensive care unit. He is currently resting quite comfortably in bed. Awake and alert in no acute distress. Maintaining O2 saturations in the 90s on 3 L/m per nasal cannula. 0.9 normal saline at 20 ML's per hour. He is receiving nourishment via PEG tube with TwoCal HN at 30 MLS per hour with a goal of 40 ML's per hour. White count 10.0. Hemoglobin 12.0. Sodium 138. Potassium 4.2. Creatinine 0.61. Blood and wound and sputum cultures reveal no growth. He is currently on DuoNeb inhalations, Pulmicort inhalations, antibiotics in the form of Zosyn. Objective - Vital Signs Vital signs: Vital Signs Temp 97.8 F 02/16/20 04:00 Pulse 81 02/16/20 08:06 Resp 23 02/16/20 05:00 BP 115/80 02/16/20 04:00 Pulse Ox 96 02/16/20 05:00 Intake & Output 02/15/20 02/16/20 02/16/20 18:59 06:59 18:59 Intake Total 480 180 Output Total 1020 580 Balance -540 -400 Weight 62 kg Intake: IV 280 180 Piperacillin-Tazobactam 3 100 .375 gm In Sodium Chloride 0.9% 100 ml @ 25 mls/hr IVPB Q8HR [facility] Rx# :[id number] Sodium Chloride 0.9% 1, 180 180 000 ml @ 20 mls/hr IV . Q24H [facility] Rx#:[id number] Tube Feeding 140 Other 60 Output: Urine 1020 580 Other: Voiding Method Indwelling Catheter Indwelling Catheter - Exam GENERAL EXAM: Alert, very pleasant, frail-looking 64-year-old male patient, he currently on 3 L per high flow nasal cannula with a pulse ox of 96%, comfortable in no apparent distress. HEAD: Normocephalic/atraumatic. EYES: Normal reaction of pupils, equal size. Conjunctiva pink, sclera white. NOSE: Clear with pink turbinates. THROAT: No erythema or exudates. NECK: No masses, no JVD, no thyroid enlargement, no adenopathy. CHEST: No chest wall deformity. Symmetrical expansion. LUNGS: Equal air entry with scattered wheezes and rhonchi, improved CVS: Regular rate and rhythm, normal S1 and S2, no gallops, no murmurs, no rubs ABDOMEN: Soft, nontender. No hepatosplenomegaly, normal bowel sounds, no guarding or rigidity. G-tube is in place, with the tube feedings infusing, T woCal HN at a rate of 10 ML per hour EXTREMITIES: No clubbing, no edema, no cyanosis, 2+ pulses and upper and lower extremities. MUSCULOSKELETAL: Muscle strength and tone normal. SPINE: No scoliosis or deformity SKIN: No rashes CENTRAL NERVOUS SYSTEM: Alert and oriented -3. No focal deficits, tone is normal in all 4 extremities. PSYCHIATRIC: Alert and oriented -3. Appropriate affect. Intact judgment and insight. - Labs CBC & Chem 7: 02/16/20 05:10 02/16/20 05:10 Labs: Abnormal Lab Results - Last 24 Hours (Table) 02/15/20 02/16/20 02/16/20 Range/Units 20:45 05:10 05:10 Hgb 12.0 L (13.0-17.5) gm/dL MCHC 30.8 L (31.0-37.0) g/dL Potassium 3.3 L (3.5-5.1) mmol/L Carbon Dioxide 31 H (22-30) mmol/L Creatinine 0.61 L (0.66-1.25) mg/dL Glucose 128 H (74-99) mg/dL Microbiology - Last 24 Hours (Table) 02/11/20 12:19 Blood Culture - Preliminary Blood No Growth after 96 hours Assessment and Plan Assessment: #1. Acute hypoxemic respiratory failure secondary to aspiration pneumonia with bibasilar infiltrates, currently down to 3 L per high flow nasal cannula #2. History of esophageal cancer, status post chemotherapy NG tube placement #3. History of recurrent aspiration #4. History of seizure disorder #5. History of brain aneurysm #6. History of chronic atrial fibrillation, with RVR on admission, currently in sinus mechanism, with occasional bursts of A. fib, controlled, on amiodarone and Eliquis #7. GERD/reflux #8. Sleep apnea syndrome #9. Mild hypokalemia related to diuretic therapy, corrected per protocol Plan: The patient was seen and evaluated by Dr. Wood Improved from the pulmonary standpoint Continue bronchodilators and Zosyn Continue 2 beats as tolerated Increase activity as tolerated Transfer to the regular medical floor with telemetry We'll continue to follow I, the cosigning physician, performed a history & physical examination of the patient. Lungs sounds end expiratory wheeze, few scattered rhonchi. Maintaining good O2 saturations in the 90s on 3 L high flow nasal cannula. I discussed the assessment and plan of care with my nurse practitioner, Yaima Bennett. I attest to the above note as dictated by her.
--- NOTE | 2020-02-16 12:20 | PN ---
PROGRESS NOTE Mr. Jarquin is a 64-year-old male with known history of esophageal cancer, status post G-tube placement, history of paroxysmal fibrillation, presented with aspiration pneumonia. He is feeling better today. He continues to be in sinus mechanism. He had no further episode of atrial fibrillation. He denies any dizziness or palpitation. He denies any nausea. He denies any cough. He is tolerating his present regimen. Continues to be on amiodarone 40 mg twice a day, Eliquis 5 mg twice a day, metoprolol tartrate 50 mg 3 times a day. PHYSICAL EXAMINATION: Blood pressure 115/80 with a heart rate in the 80s. LUNGS with mild decrease in breath sounds. No wheezes. HEART: Regular rate and rhythm S1, S2. No S3. No rub. ABDOMEN: Soft. J-tube in place, nontender. EXTREMITIES: No edema. LAB DATA: Revealed BUN and creatinine 16 and 0.61, potassium 4.2, hemoglobin of 12. IMPRESSION: 1. Pneumonia, improving. 2. Paroxysmal atrial fibrillation, remains in sinus mechanism. 3. History of esophageal cancer, status post J-tube placement. 4. History of recurrent aspiration. 5. History of brain aneurysm. RECOMMENDATIONS: From the cardiac standpoint, he is stable. I am hoping he will be transferred to telemetry floor today. If he is stable, his amiodarone will be restarted tomorrow. Increase his level of activity and depending on his progress, further recommendations will be made. MMODL / IJN: [id number] /
[2020-02-16] MEDS: SODIUM CHLORIDE 0.9% 1,000 ML IV SCH (21:54)
[2020-02-16] MEDS: DOXAZOSIN 1 MG TAB PO SCH (22:02)
--- NOTE | 2020-02-16 23:38 | P.PN ---
Subjective Progress Note Date: 02/15/20 Principal diagnosis: Acute hypoxic respiratory failure probably secondary to pneumonia 64-year-old the male admitted for pneumonia bilateral, predominantly in the right lower lobes. There is a concern about aspiration patient has been vomiting. Patient does take a modified diet by mouth at home does have a PEG tube in place. Patient the antibiotics were changed to Zosyn which is appropriate. Patient went into respiratory distress on some requirements have gone up because of which patient was transferred to ICU later in the day patient started having A. fib with rapid ventricular rate because of which patient was started on Cardizem and cardiology was consulted. I'm also consulting speech therapy because of his swallowing issues to assess if her appropriate for the patient to be continued on modified diet by mouth. 02/13/2020 Patient clinically looks better patient is being continued on Zosyn continued on IV fluids. Patient will undergo swallow evaluation today speech therapy was consulted. Patient remains nothing by mouth patient is being started on Eliquis for the atrial fibrillation anticoagulation patient is presently on oral amiodarone heart rate is better controlled today. On 02/14/2020 Patient is currently sitting in the chair comfortably. Still having baseline shortness of breath and bibasilar crackles on examination. Currently on high flow oxygen. Chest x-ray showed findings are not significantly changed. Basilar effusions and associated atelectasis versus pulmonary edema. Patient is being continued on IV antibiotic without Zosyn for possible aspiration and also a dose of Lasix IV was given. Patient has been continued on telemetry monitoring and heart rate is better controlled. Current medications reviewed. 02/15/2020 Patient is currently sitting in the chair comfortably. Saturating around 95% on 6 L oxygen via nasal cannula. Patient was started back on tube feedings today. Patient otherwise denied any complaints of chest pain worsening shortness breath. No nausea vomiting. Denied any abdominal pain. Currently maintaining sinus rhythm. Continued on Eliquis and amiodarone and cardiology is on board. Chest x-ray showed findings are not significantly changed. Basilar effusions and associated atelectasis versus pulmonary edema/pneumonia. Patient is on antibiotics in the form of Zosyn. Laboratory data showed WBC 10.7, hemoglobin 12.8 and platelets of 224 BUN is 18 and creatinine 0.58 Pulmonary and cardiology and general surgery is on board. Current medications reviewed Constitutional: Denied any fatigue denied any fever. Cardio vascular: denied any chest pain, palpitations Gastrointestinal denied any nausea vomiting Pulmonary: Denied any shortness of breath cough Neurologic denied any new focal deficits All inpatient medications were reviewed and appropriate changes in these medications as dictated in the interval history and assessment and plan. Objective - Vital Signs Vital signs: Vital Signs Temp 96.8 F L 02/15/20 08:00 Pulse 70 02/15/20 11:31 Resp 22 02/15/20 11:00 BP 130/83 02/15/20 08:00 Pulse Ox 95 02/15/20 11:00 Intake & Output 02/14/20 02/15/20 02/15/20 18:59 06:59 18:59 Intake Total 775 630 260 Output Total 2200 625 570 Balance -1425 5 -310 Weight 62 kg Intake: IV 550 440 200 Piperacillin-Tazobactam 3 200 200 100 .375 gm In Sodium Chloride 0.9% 100 ml @ 25 mls/hr IVPB Q8HR [facility] Rx# :[id number] Sodium Chloride 0.9% 1, 350 240 100 000 ml @ 20 mls/hr IV . Q24H [facility] Rx#:[id number] Tube Feeding 65 140 40 Other 160 50 20 Output: Urine 2150 625 570 Other 50 Other: Voiding Method Indwelling Catheter Indwelling Catheter Indwelling Catheter # Bowel Movements 1 - Exam PHYSICAL EXAMINATION: GENERAL: The patient is alert and oriented x3, not in any acute distress. Well developed, well nourished. HEENT: Pupils are round and equally reacting to light. EOMI. No scleral icterus. No conjunctival pallor. Normocephalic, atraumatic. No pharyngeal erythema. No thyromegaly. CARDIOVASCULAR: S1 and S2 present. No murmurs, rubs, or gallops. PULMONARY: Bibasilar crackles and scattered rhonchi. ABDOMEN: Soft, nontender, nondistended, normoactive bowel sounds. No palpable organomegaly. MUSCULOSKELETAL: No joint swelling or deformity. EXTREMITIES: No cyanosis, clubbing, or pedal edema. NEUROLOGICAL: Gross neurological examination did not reveal any focal deficits. SKIN: No rashes. - Labs CBC & Chem 7: 02/16/20 05:10 02/16/20 05:10 Labs: Abnormal Lab Results - Last 24 Hours (Table) 02/14/20 02/15/20 02/15/20 Range/Units 20:28 03:51 03:51 WBC 10.7 H (3.8-10.6) k/uL Hgb 12.8 L (13.0-17.5) gm/dL Neutrophils # 9.3 H (1.3-7.7) k/uL Lymphocytes # 0.6 L (1.0-4.8) k/uL Potassium 3.2 L 3.4 L (3.5-5.1) mmol/L Creatinine 0.58 L (0.66-1.25) mg/dL Glucose 121 H (74-99) mg/dL Calcium 8.2 L (8.4-10.2) mg/dL Microbiology - Last 24 Hours (Table) 02/14/20 17:54 Gram Stain - Preliminary Abdomen Wound Culture - Preliminary 02/11/20 12:19 Blood Culture - Preliminary Blood No Growth after 72 hours 02/12/20 10:36 Gram Stain - Final Sputum Sputum Culture - Final Assessment and Plan Assessment: -Acute hypoxic respiratory failure probably secondary to pneumonia predominantly in the right. patient does have pleural effusions on both sides. Patient is on Zosyn at this time there is a concern for aspiration. Patient is presently on high flow oxygen via Nasal cannula--at 6L. off BiPAP was on BiPAP. -Paraxysmal Atrial fibrillation with rapid ventricular rate. Patient is being switched to Eliquis. Patient is presently on amiodarone heart rate is fairly well controlled today -gastroesophageal reflux disease -Hypertension -benign prostatic hypertrophy -History of renal cancer and esophageal cancer with dysphagia and a PEG tube. Patient will be resumed on PEG tube feedings, speech therapy will be consulted because of his inability to swallow and patient does use modified diet at home by mouth -History of cerebral aneurysm. -KAROL Time with Patient: Greater than 30
--- NOTE | 2020-02-16 23:41 | P.PN ---
Subjective Progress Note Date: 02/16/20 Principal diagnosis: Acute hypoxic respiratory failure probably secondary to pneumonia 64-year-old the male admitted for pneumonia bilateral, predominantly in the right lower lobes. There is a concern about aspiration patient has been vomiting. Patient does take a modified diet by mouth at home does have a PEG tube in place. Patient the antibiotics were changed to Zosyn which is appropriate. Patient went into respiratory distress on some requirements have gone up because of which patient was transferred to ICU later in the day patient started having A. fib with rapid ventricular rate because of which patient was started on Cardizem and cardiology was consulted. I'm also consulting speech therapy because of his swallowing issues to assess if her appropriate for the patient to be continued on modified diet by mouth. 02/13/2020 Patient clinically looks better patient is being continued on Zosyn continued on IV fluids. Patient will undergo swallow evaluation today speech therapy was consulted. Patient remains nothing by mouth patient is being started on Eliquis for the atrial fibrillation anticoagulation patient is presently on oral amiodarone heart rate is better controlled today. On 02/14/2020 Patient is currently sitting in the chair comfortably. Still having baseline shortness of breath and bibasilar crackles on examination. Currently on high flow oxygen. Chest x-ray showed findings are not significantly changed. Basilar effusions and associated atelectasis versus pulmonary edema. Patient is being continued on IV antibiotic without Zosyn for possible aspiration and also a dose of Lasix IV was given. Patient has been continued on telemetry monitoring and heart rate is better controlled. Current medications reviewed. 02/15/2020 Patient is currently sitting in the chair comfortably. Saturating around 95% on 6 L oxygen via nasal cannula. Patient was started back on tube feedings today. Patient otherwise denied any complaints of chest pain worsening shortness breath. No nausea vomiting. Denied any abdominal pain. Currently maintaining sinus rhythm. Continued on Eliquis and amiodarone and cardiology is on board. Chest x-ray showed findings are not significantly changed. Basilar effusions and associated atelectasis versus pulmonary edema/pneumonia. Patient is on antibiotics in the form of Zosyn. Laboratory data showed WBC 10.7, hemoglobin 12.8 and platelets of 224 BUN is 18 and creatinine 0.58 Pulmonary and cardiology and general surgery is on board. Current medications reviewed On 02/16/2020 Patient is currently sitting in chair comfortably. Pulse ox about 90s at 3 L via nasal cannula. No fever no chills. Patient is being continued IV antibiotics.tube feedings were started and advance as tolerated. Blood and sputum cultures show no growth. Wound cultures from the abdomen showed Cassie albicans. Continued on dressing changes. No surgical intervention recommended. General surgery has seen the patient. Laboratory data showed WBC 10.0 hemoglobin 12.0 and platelets 253 BUN 16 and creatinine 0.61 patient is being transferred to general medical floor. Constitutional: Denied any fatigue denied any fever. Cardio vascular: denied any chest pain, palpitations Gastrointestinal denied any nausea vomiting Pulmonary: Denied any shortness of breath cough Neurologic denied any new focal deficits All inpatient medications were reviewed and appropriate changes in these medications as dictated in the interval history and assessment and plan. Objective - Vital Signs Vital signs: Vital Signs Temp 97.4 F L 02/16/20 16:00 Pulse 68 02/16/20 20:24 Resp 24 02/16/20 16:00 BP 117/80 02/16/20 16:00 Pulse Ox 94 L 02/16/20 16:00 Intake & Output 02/16/20 02/16/20 02/17/20 06:59 18:59 06:59 Intake Total 180 680 40 Output Total 580 320 Balance -400 360 40 Weight 62 kg Intake: IV 180 440 Piperacillin-Tazobactam 3 200 .375 gm In Sodium Chloride 0.9% 100 ml @ 25 mls/hr IVPB Q8HR [facility] Rx# :[id number] Sodium Chloride 0.9% 1, 180 240 000 ml @ 20 mls/hr IV . Q24H [facility] Rx#:[id number] Tube Feeding 240 40 Output: Urine 580 320 Other: Voiding Method Indwelling Catheter Indwelling Catheter Indwelling Catheter # Bowel Movements 1 - Exam PHYSICAL EXAMINATION: GENERAL: The patient is alert and oriented x3, not in any acute distress. Well developed, well nourished. HEENT: Pupils are round and equally reacting to light. EOMI. No scleral icterus. No conjunctival pallor. Normocephalic, atraumatic. No pharyngeal erythema. No thyromegaly. CARDIOVASCULAR: S1 and S2 present. No murmurs, rubs, or gallops. PULMONARY: Bibasilar crackles and scattered rhonchi. ABDOMEN: Soft, nontender, nondistended, normoactive bowel sounds. No palpable organomegaly. MUSCULOSKELETAL: No joint swelling or deformity. EXTREMITIES: No cyanosis, clubbing, or pedal edema. NEUROLOGICAL: Gross neurological examination did not reveal any focal deficits. SKIN: No rashes. - Labs CBC & Chem 7: 02/16/20 05:10 02/16/20 05:10 Labs: Abnormal Lab Results - Last 24 Hours (Table) 02/16/20 02/16/20 Range/Units 05:10 05:10 Hgb 12.0 L (13.0-17.5) gm/dL MCHC 30.8 L (31.0-37.0) g/dL Carbon Dioxide 31 H (22-30) mmol/L Creatinine 0.61 L (0.66-1.25) mg/dL Glucose 128 H (74-99) mg/dL Microbiology - Last 24 Hours (Table) 02/14/20 17:54 Gram Stain - Final Abdomen Wound Culture - Final Cassie albicans 02/11/20 12:19 Blood Culture - Preliminary Blood No Growth after 120 hours Assessment and Plan Assessment: -Acute hypoxic respiratory failure probably secondary to pneumonia predominantly in the right. patient does have pleural effusions on both sides. Patient is on Zosyn at this time there is a concern for aspiration. Patient is presently on high flow oxygen via Nasal cannula--at 6L-->3L. off BiPAP was on BiPAP. -Paraxysmal Atrial fibrillation with rapid ventricular rate. Patient is being switched to Eliquis. Patient is presently on amiodarone heart rate is fairly well controlled today -gastroesophageal reflux disease -Hypertension -benign prostatic hypertrophy -History of renal cancer and esophageal cancer with dysphagia and a PEG tube. Patient will be resumed on PEG tube feedings, speech therapy will be consulted because of his inability to swallow and patient does use modified diet at home by mouth -History of cerebral aneurysm. -KAROL Time with Patient: Greater than 30
[2020-02-17] MEDS: METOCLOPRAMIDE 5 MG/ML 2 ML VIAL IVP SCH ×5 (00:47→23:10)
[2020-02-17] MEDS: PIPERACILLIN-TAZOBACTAM 3.375 GM in SODIUM CHLORIDE 0.9% 100 ML IVPB SCH ×4 (00:48→23:02)
[2020-02-17 04:46] LABS: HCT 38.8 % (39.0-53.0); HGB 12.3 gm/dL (13.0-17.5); Hypochromasia Slight; MCH 28.4 pg (25.0-35.0); MCHC 31.8 g/dL (31.0-37.0); MCV 89.3 fL (80.0-100.0); Mean Platelet Volume 7.3; Platelet Count 246 k/uL (150-450); RBC 4.34 m/uL (4.30-5.90); RDW 14.4 % (11.5-15.5); WBC 9.4 k/uL (3.8-10.6)
[2020-02-17 05:15] LABS: African American GFR (CKD) >90 (>60 ml/min/1.73 sqM); Anion Gap 3 mmol/L; Blood Urea Nitrogen 16 mg/dL (9-20); Calcium 8.5 mg/dL (8.4-10.2); Carbon Dioxide 29 mmol/L (22-30); Chloride 110 mmol/L (98-107); Glucose 124 mg/dL (74-99); Non-African American GFR(CKD) >90 (>60 ml/min/1.73 sqM); Potassium 3.7 mmol/L (3.5-5.1); Sodium 142 mmol/L (137-145)
[2020-02-17] MEDS: METOPROLOL TARTRATE 50 MG TAB PO SCH ×3 (07:50→21:20)
[2020-02-17] MEDS: PANTOPRAZOLE 40 MG/10 ML VIAL IVP SCH (07:50)
[2020-02-17] MEDS: APIXABAN 5 MG TAB PO SCH ×3 (07:50→22:49)
[2020-02-17] MEDS: AMIODARONE 200 MG TAB PO SCH ×4 (07:50→22:49)
[2020-02-17] MEDS ORDERED: POTASSIUM BICARBONATE/CIT AC 20 MEQ TABLET.EFF NG-TUBE SCH (08:00)
[2020-02-17 08:20] LABS: Amorphous Sediment,Urine Rare /hpf; Appearance,Urine Turbid (Clear); Bacteria,Urine Rare /hpf; Bilirubin,Urine Negative (Negative); Blood,Urine Moderate (Negative); Color,Urine Yellow; Glucose,Urine (UA) Negative (Negative); Ketones,Urine Negative (Negative); Leukocyte Esterase,Urine Negative (Negative); Mucus,Urine Rare /hpf; Nitrite,Urine Negative (Negative); Protein,Urine Trace (Negative); RBC,Urine >182 /hpf (0-5); Specific Gravity,Urine 1.025 (1.001-1.035); Urobilinogen,Urine <2.0 mg/dL (<2.0); WBC,Urine 5 /hpf (0-5)
[2020-02-17] MEDS: IPRATROPIUM-ALBUTEROL 3 ML NEB INHALATION SCH ×4 (08:59→21:49)
[2020-02-17] MEDS: BUDESONIDE 1 MG/2 ML NEBU INHALATION SCH ×2 (08:59→21:49)
--- NOTE | 2020-02-17 09:16 | PN ---
PROGRESS NOTE Mr. Jarquin is a 64-year-old male with known history of paroxysmal atrial fibrillation, history of esophageal cancer with J-tube placement. He presented with aspiration pneumonia. He is feeling better today. He has continued to be in sinus mechanism. He denies any chest pain. He denies any dizziness. He denies any nausea or vomiting. He denies any cough or fever. His activity is getting better and he has gotten out of bed and walked in the room. He continues to be on amiodarone 400 mg twice a day, Eliquis 5 mg twice a day, Cardura, metoprolol tartrate 50 mg 3 times a day. PHYSICAL EXAMINATION: Blood pressure 127/90 with a heart rate in 70s. LUNGS: With decreased breath sounds at bases. CARDIOVASCULAR: S1, S2. No S3. No rub. ABDOMEN: Soft. J-tube in place. EXTREMITIES: No edema. LAB DATA: Revealed BUN and creatinine 16 and 0.6, potassium 3.7, hemoglobin 12.3. IMPRESSION: 1. Paroxysmal atrial fibrillation back in sinus mechanism, anticoagulated. 2. Aspiration pneumonia. 3. History of esophageal cancer with J-tube placement. 4. History of brain aneurysm. RECOMMENDATION: Will decrease the dose of his amiodarone to 200 mg twice a day. Continue his medical regimen. Increase his physical activity. Will follow his rate and depending on his trend, further recommendation will be made. MMODL / IJN: [id number] /
--- NOTE | 2020-02-17 09:30 | P.PN ---
Progress Note - Text Progress Note Date: 02/17/20 Patient's awake in bed. He describes no significant abdominal pain. On exam abdomen soft. J-tube site is clean and dry there is no evidence of any leakage. Patient is tolerating tube feeds. He'll see receive supportive care.
--- NOTE | 2020-02-17 09:59 | XR ---
EXAMINATION TYPE: XR chest 1V portable DATE OF EXAM: 02/17/2020 COMPARISON: 02/15/2020 INDICATION: Cough shortness of breath TECHNIQUE: Single frontal view of the chest is obtained. FINDINGS: The heart size is normal. The pulmonary vasculature is normal. Bibasilar infiltrates are present. Small effusions are likely present. Catheter transverses the right thorax. IMPRESSION: 1. Right basilar infiltrates with small bilateral pleural effusions, stable from comparison.
--- NOTE | 2020-02-17 11:16 | P.PN ---
Subjective Progress Note Date: 02/17/20 Principal diagnosis: Acute hypoxic respiratory failure secondary to aspiration pneumonia This is a 64-year-old white male patient of Dr. Claude Deluna that was admitted through the emergency department on 02/11/2020 when he came in for evaluation of shortness of breath, hypoxemia. Patient has a known history of esophageal cancer status post chemotherapy and NG tube placement, has a known history of COPD and CHF. Patient was started on empiric antibiotics in the form of Zosyn, nebulized bronchodilators, and diuretics, did require high flow oxygen per Airvo, which was discontinued yesterday, patient is currently on 6 L of oxygen per high flow nasal cannula with a pulse ox of 93-95%, his tube feedings were held yesterday related to some leaking around the bolster, surgical services were consulted and Dr. Styles adjusted the bolster, and tube feedings were resumed today, with TwoCal HN currently at 10 ML per hour. Of note previously patient was receiving tube feedings and consuming some nausea fluids by mouth. He is currently strict nothing by mouth, and receiving all of his nutrition via his J-tube. He is sounding much less congested today, bronchospastic, breathing easier, more comfortably, he sitting up in the chair. His vital signs are stable, his been afebrile, hemodynamically stable, 0.9 normal saline infusing at a rate of 20 ML per hour, yesterday he received a dose of Lasix, and he produces 2.8 L and urine output, he is -1.4 L over last 24 hours, indwelling catheter is in place. On admission patient was in A. fib with RVR, he is currently in sinus mechanism, he is on oral amiodarone and Eliquis for anticoagulation, cardiology services are following. Today's chest x-ray has been reviewed, showing stable diffuse pleural parenchymal disease related to aspiration pneumonia. Today's labs have been reviewed, showing white blood cell, 10.7, hemoglobin of 12.8, sodium is 140, potassium is 3.4, the rest of electrolytes were within normal limits, BUN is 18 creatinine 0.58. All microbiology has shown no growth. He is on Zosyn for antibiotic coverage. The patient is seen today 02/16/2020 in follow-up in the intensive care unit. He is currently resting quite comfortably in bed. Awake and alert in no acute distress. Maintaining O2 saturations in the 90s on 3 L/m per nasal cannula. 0.9 normal saline at 20 ML's per hour. He is receiving nourishment via PEG tube with TwoCal HN at 30 MLS per hour with a goal of 40 ML's per hour. White count 10.0. Hemoglobin 12.0. Sodium 138. Potassium 4.2. Creatinine 0.61. Blood and wound and sputum cultures reveal no growth. He is currently on DuoNeb inhalations, Pulmicort inhalations, antibiotics in the form of Zosyn. The patient is seen today 02/17/2020 in follow-up in the intensive care unit. He is currently resting comfortably in bed. Awake and alert in no acute distress. He is maintaining good O2 saturations in the 90s on 3 L/m per nasal cannula. Chest x-ray reveals right basilar infiltrate with small bilateral pleural effusions. Stable compared to previous. 0.9 normal saline at 20 ML's per hour. Currently receiving TwoCal HN at 40 MLs per hour with a goal of 50 ML's per hour. Blood culture reveals no growth. Sputum culture reveals no growth. Abdomen reveals Cassie. White count 9.4. Hemoglobin 12.3. Sodium 142. Potassium 3.7. Creatinine 0.60. He remains on Zosyn. Anticoagulated with Eliquis. Objective - Vital Signs Vital signs: Vital Signs Temp 98.5 F 02/17/20 08:00 Pulse 63 02/17/20 09:13 Resp 28 H 02/17/20 08:00 BP 127/94 02/17/20 08:00 Pulse Ox 94 L 02/17/20 08:00 Intake & Output 02/16/20 02/17/20 02/17/20 18:59 06:59 18:59 Intake Total 680 460 200 Output Total 320 450 20 Balance 360 10 180 Weight 62 kg Intake: IV 440 340 120 Piperacillin-Tazobactam 3 200 100 100 .375 gm In Sodium Chloride 0.9% 100 ml @ 25 mls/hr IVPB Q8HR [facility] Rx# :[id number] Sodium Chloride 0.9% 1, 240 240 20 000 ml @ 20 mls/hr IV . Q24H [facility] Rx#:[id number] Tube Feeding 240 120 80 Output: Urine 320 450 20 Other: Voiding Method Indwelling Catheter Indwelling Catheter Indwelling Catheter # Bowel Movements 1 1 - Exam GENERAL EXAM: Alert, very pleasant, frail-looking 64-year-old male patient, he currently on 3 L per high flow nasal cannula with a pulse ox of 94%, comfortable in no apparent distress. HEAD: Normocephalic/atraumatic. EYES: Normal reaction of pupils, equal size. Conjunctiva pink, sclera white. NOSE: Clear with pink turbinates. THROAT: No erythema or exudates. NECK: No masses, no JVD, no thyroid enlargement, no adenopathy. CHEST: No chest wall deformity. Symmetrical expansion. LUNGS: Equal air entry with scattered wheezes and rhonchi, improved CVS: Regular rate and rhythm, normal S1 and S2, no gallops, no murmurs, no rubs ABDOMEN: Soft, nontender. No hepatosplenomegaly, normal bowel sounds, no guarding or rigidity. G-tube is in place, with the tube feedings infusing, TwoCal HN at a rate of 400 ML per hour EXTREMITIES: No clubbing, no edema, no cyanosis, 2+ pulses and upper and lower extremities. MUSCULOSKELETAL: Muscle strength and tone normal. SPINE: No scoliosis or deformity SKIN: No rashes CENTRAL NERVOUS SYSTEM: No focal deficits, tone is normal in all 4 extremities. PSYCHIATRIC: Alert and oriented -3. Appropriate affect. Intact judgment and insight. - Labs CBC & Chem 7: 02/17/20 04:30 02/17/20 04:30 Labs: Abnormal Lab Results - Last 24 Hours (Table) 02/17/20 02/17/20 02/17/20 Range/Units 04:30 04:30 07:15 Hgb 12.3 L (13.0-17.5) gm/dL Hct 38.8 L (39.0-53.0) % Chloride 110 H (98-107) mmol/L Creatinine 0.60 L (0.66-1.25) mg/dL Glucose 124 H (74-99) mg/dL Urine Protein Trace H (Negative) Urine Blood Moderate H (Negative) Urine RBC >182 H (0-5) /hpf Amorphous Sediment Rare H (None) /hpf Urine Bacteria Rare H (None) /hpf Urine Mucus Rare H (None) /hpf Microbiology - Last 24 Hours (Table) 02/14/20 17:54 Gram Stain - Final Abdomen Wound Culture - Final Cassie albicans 02/11/20 12:19 Blood Culture - Preliminary Blood No Growth after 120 hours Assessment and Plan Assessment: 1 Acute hypoxemic respiratory failure secondary to aspiration pneumonia with bibasilar infiltrates, currently down to 3 L per high flow nasal cannula 2 History of esophageal cancer, status post chemotherapy NG tube placement 3 History of recurrent aspiration 4 History of seizure disorder 5 History of brain aneurysm 6 History of chronic atrial fibrillation, with RVR on admission, currently in sinus mechanism, with occasional bursts of A. fib, controlled, on amiodarone and Eliquis 7 GERD/reflux 8 Sleep apnea syndrome 9 Mild hypokalemia related to diuretic therapy, corrected per protocol Plan: The patient was seen and evaluated by Dr. Wood Chest x-ray and labs reviewed Continue Zosyn Continue tube feedings as tolerated Increase activity as tolerated Awaiting transfer to the regular medical floor with telemetry We'll continue to follow I, the cosigning physician, performed a history & physical examination of the patient. Lungs sounds end expiratory wheeze, few scattered rhonchi. Maintaining good O2 saturations in the 90s on 3 L high flow nasal cannula. I discussed the assessment and plan of care with my nurse practitioner, Yaima Bennett. I attest to the above note as dictated by her.
--- NOTE | 2020-02-17 21:19 | P.PN ---
Subjective Progress Note Date: 02/17/20 Principal diagnosis: Acute hypoxic respiratory failure probably secondary to pneumonia 64-year-old the male admitted for pneumonia bilateral, predominantly in the right lower lobes. There is a concern about aspiration patient has been vomiting. Patient does take a modified diet by mouth at home does have a PEG tube in place. Patient the antibiotics were changed to Zosyn which is appropriate. Patient went into respiratory distress on some requirements have gone up because of which patient was transferred to ICU later in the day patient started having A. fib with rapid ventricular rate because of which patient was started on Cardizem and cardiology was consulted. I'm also consulting speech therapy because of his swallowing issues to assess if her appropriate for the patient to be continued on modified diet by mouth. 02/13/2020 Patient clinically looks better patient is being continued on Zosyn continued on IV fluids. Patient will undergo swallow evaluation today speech therapy was consulted. Patient remains nothing by mouth patient is being started on Eliquis for the atrial fibrillation anticoagulation patient is presently on oral amiodarone heart rate is better controlled today. On 02/14/2020 Patient is currently sitting in the chair comfortably. Still having baseline shortness of breath and bibasilar crackles on examination. Currently on high flow oxygen. Chest x-ray showed findings are not significantly changed. Basilar effusions and associated atelectasis versus pulmonary edema. Patient is being continued on IV antibiotic without Zosyn for possible aspiration and also a dose of Lasix IV was given. Patient has been continued on telemetry monitoring and heart rate is better controlled. Current medications reviewed. 02/15/2020 Patient is currently sitting in the chair comfortably. Saturating around 95% on 6 L oxygen via nasal cannula. Patient was started back on tube feedings today. Patient otherwise denied any complaints of chest pain worsening shortness breath. No nausea vomiting. Denied any abdominal pain. Currently maintaining sinus rhythm. Continued on Eliquis and amiodarone and cardiology is on board. Chest x-ray showed findings are not significantly changed. Basilar effusions and associated atelectasis versus pulmonary edema/pneumonia. Patient is on antibiotics in the form of Zosyn. Laboratory data showed WBC 10.7, hemoglobin 12.8 and platelets of 224 BUN is 18 and creatinine 0.58 Pulmonary and cardiology and general surgery is on board. Current medications reviewed On 02/16/2020 Patient is currently sitting in chair comfortably. Pulse ox about 90s at 3 L via nasal cannula. No fever no chills. Patient is being continued IV antibiotics.tube feedings were started and advance as tolerated. Blood and sputum cultures show no growth. Wound cultures from the abdomen showed Cassie albicans. Continued on dressing changes. No surgical intervention recommended. General surgery has seen the patient. Laboratory data showed WBC 10.0 hemoglobin 12.0 and platelets 253 BUN 16 and creatinine 0.61 patient is being transferred to general medical floor. 02/17/2020 Patient is currently lying in the bed comfortably. Still requiring oxygen at 3 L via nasal cannula. Awake alert oriented but lethargic. No fever no chills. Patient is being continued on antibiotics now for Zosyn. Chest x-ray showed right basilar infiltrates with small bilateral pleural effusions stable from comparison. Patient is tolerating tube feedings at 50 cc/h PEG tube site wound cultures showed Cassie albicans. Patient is being continued on duo nebs and Pulmicort. Heart rate is controlled. Anticoagulation with Eliquis and also on amiodarone and metoprolol 3 times daily. Cardiology and pulmonary is following. Laboratory data showed potassium 3.7, BUN 16 and creatinine 0.6 and hemoglobin 12.3 WBC 9.4 Discussed with his at bedside in detail. Constitutional: Denied any fatigue denied any fever. Cardio vascular: denied any chest pain, palpitations Gastrointestinal denied any nausea vomiting Pulmonary: Denied any shortness of breath cough Neurologic denied any new focal deficits All inpatient medications were reviewed and appropriate changes in these medications as dictated in the interval history and assessment and plan. Objective - Vital Signs Vital signs: Vital Signs Temp 97.9 F 02/17/20 16:31 Pulse 92 02/17/20 16:31 Resp 36 H 02/17/20 16:31 BP 125/88 02/17/20 16:31 Pulse Ox 93 L 02/17/20 16:31 Intake & Output 02/17/20 02/17/20 02/18/20 06:59 18:59 06:59 Intake Total 460 590 Output Total 450 430 Balance 10 160 Intake: IV 340 380 Piperacillin-Tazobactam 3 100 200 .375 gm In Sodium Chloride 0.9% 100 ml @ 25 mls/hr IVPB Q8HR EDER Rx# :[id number] Sodium Chloride 0.9% 1, 240 180 000 ml @ 20 mls/hr IV . Q24H EDER Rx#:[id number] Tube Feeding 120 210 Output: Urine 450 430 Other: Voiding Method Indwelling Catheter Indwelling Catheter # Bowel Movements 1 - Exam PHYSICAL EXAMINATION: GENERAL: The patient is alert and oriented x3, not in any acute distress. Well developed, well nourished. HEENT: Pupils are round and equally reacting to light. EOMI. No scleral icterus. No conjunctival pallor. Normocephalic, atraumatic. No pharyngeal erythema. No thyromegaly. CARDIOVASCULAR: S1 and S2 present. No murmurs, rubs, or gallops. PULMONARY: Bibasilar crackles and scattered rhonchi. ABDOMEN: Soft, nontender, nondistended, normoactive bowel sounds. No palpable organomegaly. MUSCULOSKELETAL: No joint swelling or deformity. EXTREMITIES: No cyanosis, clubbing, or pedal edema. NEUROLOGICAL: Gross neurological examination did not reveal any focal deficits. SKIN: No rashes. - Labs CBC & Chem 7: 02/17/20 04:30 02/17/20 04:30 Labs: Abnormal Lab Results - Last 24 Hours (Table) 02/17/20 02/17/20 02/17/20 Range/Units 04:30 04:30 07:15 Hgb 12.3 L (13.0-17.5) gm/dL Hct 38.8 L (39.0-53.0) % Chloride 110 H (98-107) mmol/L Creatinine 0.60 L (0.66-1.25) mg/dL Glucose 124 H (74-99) mg/dL Urine Protein Trace H (Negative) Urine Blood Moderate H (Negative) Urine RBC >182 H (0-5) /hpf Amorphous Sediment Rare H (None) /hpf Urine Bacteria Rare H (None) /hpf Urine Mucus Rare H (None) /hpf Microbiology - Last 24 Hours (Table) 02/11/20 12:19 Blood Culture - Final Blood No Growth after 144 hours 02/14/20 17:54 Gram Stain - Final Abdomen Wound Culture - Final Cassie albicans Assessment and Plan Assessment: -Acute hypoxic respiratory failure probably secondary to pneumonia predominantly in the right. patient does have pleural effusions on both sides. Patient is on Zosyn at this time there is a concern for aspiration. Patient is presently on high flow oxygen via Nasal cannula--at 6L-->3L. off BiPAP was on BiPAP. -Paraxysmal Atrial fibrillation with rapid ventricular rate. Patient is being switched to Eliquis. Patient is presently on amiodarone heart rate is fairly well controlled today -gastroesophageal reflux disease -Hypertension -benign prostatic hypertrophy -History of renal cancer and esophageal cancer with dysphagia and a PEG tube. Patient will be resumed on PEG tube feedings, speech therapy will be consulted because of his inability to swallow and patient does use modified diet at home by mouth -History of cerebral aneurysm. -KAROL Time with Patient: Greater than 30
[2020-02-17] MEDS: DOXAZOSIN 1 MG TAB PO SCH ×2 (21:20→22:49)
[2020-02-17] MEDS: METOPROLOL TARTRATE 5 MG/5 ML VIAL IVP SCH (23:02)
[2020-02-18] MEDS: METOPROLOL TARTRATE 5 MG/5 ML VIAL IVP SCH ×2 (01:00→09:21)
[2020-02-18 04:33] LABS: HCT 45.8 % (39.0-53.0); HGB 13.7 gm/dL (13.0-17.5); Hypochromasia Moderate; MCH 27.4 pg (25.0-35.0); MCV 91.4 fL (80.0-100.0); Mean Platelet Volume 7.7; Platelet Count 196 k/uL (150-450); RBC 5.01 m/uL (4.30-5.90); RDW 14.6 % (11.5-15.5); WBC 7.9 k/uL (3.8-10.6)
[2020-02-18 04:52] LABS: African American GFR (CKD) >90 (>60 ml/min/1.73 sqM); Anion Gap 9 mmol/L; Blood Urea Nitrogen 18 mg/dL (9-20); Calcium 8.7 mg/dL (8.4-10.2); Carbon Dioxide 21 mmol/L (22-30); Chloride 111 mmol/L (98-107); Glucose 105 mg/dL (74-99); Non-African American GFR(CKD) >90 (>60 ml/min/1.73 sqM); Sodium 141 mmol/L (137-145)
[2020-02-18 04:58] LABS: Potassium 4.9 mmol/L (3.5-5.1)
[2020-02-18] MEDS: SODIUM CHLORIDE 0.9% 1,000 ML IV SCH ×2 (06:24→22:02)
[2020-02-18] MEDS: METOCLOPRAMIDE 5 MG/ML 2 ML VIAL IVP SCH ×3 (06:24→19:38)
[2020-02-18] MEDS: BUDESONIDE 1 MG/2 ML NEBU INHALATION SCH ×2 (08:25→20:23)
[2020-02-18] MEDS: IPRATROPIUM-ALBUTEROL 3 ML NEB INHALATION SCH ×4 (08:25→20:23)
[2020-02-18] MEDS: PANTOPRAZOLE 40 MG/10 ML VIAL IVP SCH (09:21)
[2020-02-18] MEDS: PIPERACILLIN-TAZOBACTAM 3.375 GM in SODIUM CHLORIDE 0.9% 100 ML IVPB SCH ×2 (09:22→16:45)
--- NOTE | 2020-02-18 10:17 | P.PN ---
<KatyKaylynn Diaz - Last Filed: 02/18/20 10:07> Subjective This is a pleasant 64-year-old male past medical history significant for paroxysmal atrial fibrillation on long-term anticoagulation, esophageal cancer with J-tube in place, hypertension and brain aneurysm in the past. He follows in the office with Dr. Claros. He is seen and examined resting comfortably laying flat in bed in no acute distress. He denies symptoms of chest pain, shortness of breath, dizziness or palpitations. He is currently maintaining sinus mechanism. Blood pressure 125/88 heart rate 92 afebrile maintaining oxygen saturation on nasal cannula. Laboratory data reviewed, WBC 7.9, hemoglobin 13.7, sodium 141, potassium 4.9, creatinine 0.6. Currently maintained on amiodarone 200 mg twice a day, Eliquis 5 mg twice a day and Lopressor 5 mg IV push 3 times a day. GENERAL: Well-appearing, well-nourished and in no acute distress. NECK: Supple without JVD or thyromegaly. LUNGS: Breath sounds clear to auscultation bilaterally. Respiration equal and unlabored. No wheezes, rales or rhonchi. Diminished bilaterally. HEART: Regular rate and rhythm without murmurs, rubs or gallops. S1 and S2 heard. EXTREMITIES: Normal range of motion, no edema. No clubbing or cyanosis. Peripheral pulses intact. ASSESSMENT Paroxysmal atrial fibrillation on Eliquis for anticoagulation currently maintaining sinus mechanism Aspiration pneumonia History of esophageal cancer status post J-tube placement Hypertension History of brain aneurysm PLAN Continue eliquis for anti-coagulation. Change lopressor to 25 mg via the J-tube rather than IV. Nurse Practitioner note has been reviewed, I agree with a documented findings and plan of care. Patient was seen and examined. Objective - Vital Signs Vital signs: Vital Signs Temp 97.9 F 02/17/20 16:31 Pulse 89 02/18/20 08:38 Resp 36 H 02/17/20 16:31 BP 125/88 02/17/20 16:31 Pulse Ox 93 L 02/17/20 16:31 Intake & Output 02/17/20 02/18/20 02/18/20 18:59 06:59 18:59 Intake Total 590 290 Output Total 430 920 Balance 160 -630 Intake: IV 380 240 Piperacillin-Tazobactam 3 200 .375 gm In Sodium Chloride 0.9% 100 ml @ 25 mls/hr IVPB Q8HR EDER Rx# :[id number] Sodium Chloride 0.9% 1, 180 240 000 ml @ 20 mls/hr IV . Q24H EDER Rx#:[id number] Tube Feeding 210 50 Output: Urine 430 920 Other: Voiding Method Indwelling Catheter Indwelling Catheter - Labs CBC & Chem 7: 02/18/20 03:55 02/18/20 03:55 Labs: Abnormal Lab Results - Last 24 Hours (Table) 02/18/20 02/18/20 Range/Units 03:55 03:55 MCHC 30.0 L (31.0-37.0) g/dL Chloride 111 H (98-107) mmol/L Carbon Dioxide 21 L (22-30) mmol/L Creatinine 0.60 L (0.66-1.25) mg/dL Glucose 105 H (74-99) mg/dL Microbiology - Last 24 Hours (Table) 02/11/20 12:19 Blood Culture - Final Blood No Growth after 144 hours <Doc Byrnes - Last Filed: 02/18/20 14:21> Subjective Eliquis noted to be approximately $400 and cost prohibitive. Restart Coumadin. Give meds through J tube. Objective - Vital Signs Vital signs: Vital Signs Temp 97.9 F 02/17/20 16:31 Pulse 86 02/18/20 12:06 Resp 36 H 02/17/20 16:31 BP 125/88 02/17/20 16:31 Pulse Ox 93 L 02/17/20 16:31 Intake & Output 02/17/20 02/18/20 02/18/20 18:59 06:59 18:59 Intake Total 590 290 350 Output Total 430 920 300 Balance 160 -630 50 Intake: IV 380 240 300 Piperacillin-Tazobactam 3 200 100 .375 gm In Sodium Chloride 0.9% 100 ml @ 25 mls/hr IVPB Q8HR EDER Rx# :[id number] Sodium Chloride 0.9% 1, 180 240 200 000 ml @ 20 mls/hr IV . Q24H EDER Rx#:[id number] Tube Feeding 210 50 50 Output: Urine 430 920 300 Other: Voiding Method Indwelling Catheter Indwelling Catheter - Labs CBC & Chem 7: 02/18/20 03:55 02/18/20 03:55 Labs: Abnormal Lab Results - Last 24 Hours (Table) 02/18/20 02/18/20 Range/Units 03:55 03:55 MCHC 30.0 L (31.0-37.0) g/dL Chloride 111 H (98-107) mmol/L Carbon Dioxide 21 L (22-30) mmol/L Creatinine 0.60 L (0.66-1.25) mg/dL Glucose 105 H (74-99) mg/dL Microbiology - Last 24 Hours (Table) 02/11/20 12:19 Blood Culture - Final Blood No Growth after 144 hours
--- NOTE | 2020-02-18 11:02 | CT ---
EXAMINATION TYPE: CT chest wo con DATE OF EXAM: 02/18/2020 COMPARISON: 10/18/2019 HISTORY: Pneumonia, effusion CT DLP: 269.[address] of the chest was performed with lung and mediastinal window settings submitted. The la ck of contrast limits evaluation of the vascular, mediastinal and parenchymal structures including th e upper abdomen. LUNGS: Again noted is consolidative process left lower lobe essentially unchanged relative to prior e xamination. There is linear atelectasis or infiltrate right lower lobe. There is also nodularity iden tified measuring 7.9 mm right lower lobe. Additional nodularity is noted superior segment left lower lobe measuring 6.4 mm. Upper lobe micronodule areas also identified. Previously noted nodules left lo wer lobe are less conspicuous likely given enlarging pleural effusions bilaterally. Increased microno dular appearance is noted within the lung apices.. MEDIASTINUM/LANDY: Is evidence of esophagectomy with gastric pull-through. No evidence for adenopathy. Thoracic aorta is ectatic and atheromatous without evidence for aneurysm. There is no evidence for c ardiomegaly. UPPER ABDOMEN: No significant abnormality is seen. OTHER: No significant other abnormality. IMPRESSION: 1. Essentially unchanged consolidative process left lower lobe. Areas of the micronodularity within the upper lobes and scattered nodularity noted. Nonspecific infectious process is difficult to exclud e. Enlarging pleural effusions also identified. 2. Fluid distended gastric pull-through procedure and esophagectomy changes.
[2020-02-18] MEDS: AMIODARONE 200 MG TAB PO SCH ×2 (11:13→19:38)
[2020-02-18] MEDS: APIXABAN 5 MG TAB PO SCH (11:13)
--- NOTE | 2020-02-18 12:20 | P.PN ---
Subjective Progress Note Date: 02/18/20 Principal diagnosis: Leaking J-tube Patient apparently did well over the weekend. There was no leakage around the J-tube. Yesterday however the patient's tube became clogged. They were unable to clear this. Tube feeds have been held. Objective - Vital Signs Vital signs: Vital Signs Temp 97.9 F 02/17/20 16:31 Pulse 86 02/18/20 12:06 Resp 36 H 02/17/20 16:31 BP 125/88 02/17/20 16:31 Pulse Ox 93 L 02/17/20 16:31 Intake & Output 02/17/20 02/18/20 02/18/20 18:59 06:59 18:59 Intake Total 590 290 Output Total 430 920 Balance 160 -630 Intake: IV 380 240 Piperacillin-Tazobactam 3 200 .375 gm In Sodium Chloride 0.9% 100 ml @ 25 mls/hr IVPB Q8HR EDER Rx# :[id number] Sodium Chloride 0.9% 1, 180 240 000 ml @ 20 mls/hr IV . Q24H EDER Rx#:[id number] Tube Feeding 210 50 Output: Urine 430 920 Other: Voiding Method Indwelling Catheter Indwelling Catheter - Exam Abdomen: Soft, nondistended, left-sided J-tube intact, able to flush the obstruction without significant difficulty using 5 mL H2O. - Labs CBC & Chem 7: 02/18/20 03:55 02/18/20 03:55 Labs: Abnormal Lab Results - Last 24 Hours (Table) 02/18/20 02/18/20 Range/Units 03:55 03:55 MCHC 30.0 L (31.0-37.0) g/dL Chloride 111 H (98-107) mmol/L Carbon Dioxide 21 L (22-30) mmol/L Creatinine 0.60 L (0.66-1.25) mg/dL Glucose 105 H (74-99) mg/dL Microbiology - Last 24 Hours (Table) 02/11/20 12:19 Blood Culture - Final Blood No Growth after 144 hours Assessment and Plan (1) Jejunostomy tube leak Narrative/Plan: Catheter seems to be functioning properly at this time. We'll sign off. Call if needed. Current Visit: Yes Status: Acute Code(s): K94.13 - ENTEROSTOMY MALFUNCTION SNOMED Code(s): 499425412
--- NOTE | 2020-02-18 14:04 | P.PN ---
Subjective Progress Note Date: 02/18/20 This is a 64-year-old white male patient of Dr. Claude Deluna that was admitted through the emergency department on 02/11/2020 when he came in for evaluation of shortness of breath, hypoxemia. Patient has a known history of esophageal cancer status post chemotherapy and NG tube placement, has a known history of COPD and CHF. Patient was started on empiric antibiotics in the form of Zosyn, nebulized bronchodilators, and diuretics, did require high flow oxygen per Airvo, which was discontinued yesterday, patient is currently on 6 L of oxygen per high flow nasal cannula with a pulse ox of 93-95%, his tube feedings were held yesterday related to some leaking around the bolster, surgical services were consulted and Dr. Styles adjusted the bolster, and tube feedings were resumed today, with TwoCal HN currently at 10 ML per hour. Of note previously patient was receiving tube feedings and consuming some nausea fluids by mouth. He is currently strict nothing by mouth, and receiving all of his nutrition via his J-tube. He is sounding much less congested today, bronchospastic, breathing easier, more comfortably, he sitting up in the chair. His vital signs are stable, his been afebrile, hemodynamically stable, 0.9 normal saline infusing at a rate of 20 ML per hour, yesterday he received a dose of Lasix, and he produces 2.8 L and urine output, he is -1.4 L over last 24 hours, indwelling catheter is in place. On admission patient was in A. fib with RVR, he is currently in sinus mechanism, he is on oral amiodarone and Eliquis for anticoagulation, cardiology services are following. Today's chest x-ray has been reviewed, showing stable diffuse pleural parenchymal disease related to aspiration pneumonia. Today's labs have been reviewed, showing white blood cell, 10.7, hemoglobin of 12.8, sodium is 140, potassium is 3.4, the rest of electrolytes were within normal limits, BUN is 18 creatinine 0.58. All microbiology has shown no growth. He is on Zosyn for antibiotic coverage. The patient is seen today 02/16/2020 in follow-up in the intensive care unit. He is currently resting quite comfortably in bed. Awake and alert in no acute distress. Maintaining O2 saturations in the 90s on 3 L/m per nasal cannula. 0.9 normal saline at 20 ML's per hour. He is receiving nourishment via PEG tube with TwoCal HN at 30 MLS per hour with a goal of 40 ML's per hour. White count 10.0. Hemoglobin 12.0. Sodium 138. Potassium 4.2. Creatinine 0.61. Blood and wound and sputum cultures reveal no growth. He is currently on DuoNeb inhalations, Pulmicort inhalations, antibiotics in the form of Zosyn. The patient is seen today 02/17/2020 in follow-up in the intensive care unit. He is currently resting comfortably in bed. Awake and alert in no acute distress. He is maintaining good O2 saturations in the 90s on 3 L/m per nasal cannula. Chest x-ray reveals right basilar infiltrate with small bilateral pleural effusions. Stable compared to previous. 0.9 normal saline at 20 ML's per hour. Currently receiving TwoCal HN at 40 MLs per hour with a goal of 50 ML's per hour. Blood culture reveals no growth. Sputum culture reveals no growth. Abdomen reveals Cassie. White count 9.4. Hemoglobin 12.3. Sodium 142. Potassium 3.7. Creatinine 0.60. He remains on Zosyn. Anticoagulated with Eliquis. On 02/18/2020 and seeing the patient for a follow-up in the intensive care unit. The patient is having some difficulties with his J-tube. This was found to be clotted again and surgical consultation was again obtained in regards to this problem. In terms of his breathing, is breathing comfortably at 3 L of oxygen by nasal cannula with a pulse of 74%. He is on IV fluids with normal saline at rate of 20 mL an hour. He is in normal sinus rhythm. His chest x-ray still showing increased opacity in lung bases bilaterally and we opted to proceed with a CAT scan of the chest to characterized his abnormalities. The patient has no fever. The patient has no chills. The patient is taking some material orally for pleasure. I reviewed the CAT scan of the chest that was done this morning. The CAT scan showed small better pleural effusion. There is a limited consoli dation process in the left lower lobe. Some limited nodularity is also noted and this appears segment of the left lower lobe. The patient has postsurgical changes with previous esophagectomy and gastric pull. No evidence of any lymphadenopathy. No evidence of any cardiomegaly. Objective - Vital Signs Vital signs: Vital Signs Temp 97.9 F 02/17/20 16:31 Pulse 86 02/18/20 12:06 Resp 36 H 02/17/20 16:31 BP 125/88 02/17/20 16:31 Pulse Ox 93 L 02/17/20 16:31 Intake & Output 02/17/20 02/18/20 02/18/20 18:59 06:59 18:59 Intake Total 590 290 Output Total 430 920 Balance 160 -630 Intake: IV 380 240 Piperacillin-Tazobactam 3 200 .375 gm In Sodium Chloride 0.9% 100 ml @ 25 mls/hr IVPB Q8HR EDER Rx# :[id number] Sodium Chloride 0.9% 1, 180 240 000 ml @ 20 mls/hr IV . Q24H EDER Rx#:[id number] Tube Feeding 210 50 Output: Urine 430 920 Other: Voiding Method Indwelling Catheter Indwelling Catheter - Exam GENERAL EXAM: Alert, very pleasant, frail-looking 64-year-old male patient, he currently on 3 L per high flow nasal cannula with a pulse ox of 94%, comfortable in no apparent distress. HEAD: Normocephalic/atraumatic. EYES: Normal reaction of pupils, equal size. Conjunctiva pink, sclera white. NOSE: Clear with pink turbinates. THROAT: No erythema or exudates. NECK: No masses, no JVD, no thyroid enlargement, no adenopathy. CHEST: No chest wall deformity. Symmetrical expansion. LUNGS: Equal air entry with scattered wheezes and rhonchi, improved CVS: Regular rate and rhythm, normal S1 and S2, no gallops, no murmurs, no rubs ABDOMEN: Soft, nontender. No hepatosplenomegaly, normal bowel sounds, no guarding or rigidity. G-tube is in place, with the tube feedings infusing, TwoCal HN at a rate of 400 ML per hour EXTREMITIES: No clubbing, no edema, no cyanosis, 2+ pulses and upper and lower extremities. MUSCULOSKELETAL: Muscle strength and tone normal. SPINE: No scoliosis or deformity SKIN: No rashes CENTRAL NERVOUS SYSTEM: No focal deficits, tone is normal in all 4 extremities. PSYCHIATRIC: Alert and oriented -3. Appropriate affect. Intact judgment and insight. - Labs CBC & Chem 7: 02/18/20 03:55 02/18/20 03:55 Labs: Abnormal Lab Results - Last 24 Hours (Table) 02/18/20 02/18/20 Range/Units 03:55 03:55 MCHC 30.0 L (31.0-37.0) g/dL Chloride 111 H (98-107) mmol/L Carbon Dioxide 21 L (22-30) mmol/L Creatinine 0.60 L (0.66-1.25) mg/dL Glucose 105 H (74-99) mg/dL Microbiology - Last 24 Hours (Table) 02/11/20 12:19 Blood Culture - Final Blood No Growth after 144 hours Assessment and Plan Plan: 1 Acute hypoxemic respiratory failure secondary to aspiration pneumonia with bibasilar infiltrates, currently down to 3 L per high flow nasal cannula. The CAT scan of the chest was done today. No evidence of any lymphadenopathy within the chest. There is a gastric pull related to previous esophagectomy. The patient also has some limited effusion lung bases bilaterally along with some ongoing consolidation of the left lung base. The patient is also on IV Zosyn. 2 History of esophageal cancer, status post gastric pull and the patient has gastroparesis and the patient is being fed through a J-tube. This patient has had previous bout. 3 History of recurrent aspiration 4 History of seizure disorder 5 History of brain aneurysm, and the patient had a [employer] aneurysm rupture 25 years ago an and comprehension and he neglectson the left side and has history of seizures 6 History of chronic atrial fibrillation, with RVR on admission, currently in sinus mechanism, with occasional bursts of A. fib, controlled, on amiodarone and warfarin was also started today 7 GERD/reflux 8 Sleep apnea syndrome, does not utilize a CPAP machine 9 Mild hypokalemia related to diuretic therapy, corrected per protocol 10 previous history of GI bleed, 11 previous history of a left heel wound, treated at the wound center 12 difficult mobility and the patient wheelchair Plan: Continue the DuoNeb neb last 2 minutes [id number] Continue IV Zosyn Medical evaluation with warfarin was started today in the patient's PT/INR will be monitored very closely The consult with neurosurgery regarding the blood J-tube Aspiration precautions Feeding only for pleasure small amounts with careful monitoring for any aspiration Lower extremity discontinued once the patient is fully anticoagulated Continue oral amiodarone Continue metoprolol We'll continue to follow, the patient can be transferred out of the intensive care unit. CAT scan of the chest was reviewed
[2020-02-18 14:44] LABS: INR 1.2 (<1.2); Prothrombin Time 11.8 sec (9.0-12.0)
[2020-02-18] MEDS ORDERED: WARFARIN 5 MG TAB PO ONE (18:00)
[2020-02-18] MEDS ORDERED: METOPROLOL TARTRATE 25 MG TAB PEJ/J-Tube SCH (21:00)
[2020-02-18] MEDS: ENOXAPARIN 60 MG/0.6 ML SYRINGE SQ SCH (21:30)
[2020-02-18] MEDS: DOXAZOSIN 1 MG TAB PO SCH (21:30)
[2020-02-19] MEDS: PIPERACILLIN-TAZOBACTAM 3.375 GM in SODIUM CHLORIDE 0.9% 100 ML IVPB SCH ×2 (00:51→10:30)
[2020-02-19] MEDS: METOCLOPRAMIDE 5 MG/ML 2 ML VIAL IVP SCH ×4 (00:53→19:12)
[2020-02-19 04:34] LABS: INR 1.2 (<1.2); Prothrombin Time 12.5 sec (9.0-12.0)
[2020-02-19] MEDS: SODIUM CHLORIDE 0.9% 1,000 ML IV SCH (06:01)
[2020-02-19] MEDS: BUDESONIDE 1 MG/2 ML NEBU INHALATION SCH ×2 (07:45→19:39)
[2020-02-19] MEDS: IPRATROPIUM-ALBUTEROL 3 ML NEB INHALATION SCH ×4 (07:45→19:39)
[2020-02-19] MEDS: PANTOPRAZOLE 40 MG/10 ML VIAL IVP SCH (08:59)
[2020-02-19] MEDS: AMIODARONE 200 MG TAB PO SCH (09:00)
[2020-02-19] MEDS: METOPROLOL TARTRATE 50 MG TAB PEG/G-TUBE SCH ×2 (09:00→23:49)
[2020-02-19] MEDS: ENOXAPARIN 60 MG/0.6 ML SYRINGE SQ SCH ×2 (09:00→23:49)
--- NOTE | 2020-02-19 10:04 | P.PN ---
Subjective This is a pleasant 64-year-old male past medical history significant for paroxysmal atrial fibrillation on long-term anticoagulation, esophageal cancer with J-tube in place, hypertension and brain aneurysm in the past. He follows in the office with Dr. Claros. He is seen and examined resting comfortably laying flat in bed in no acute distress. He denies symptoms of chest pain, shortness of breath, dizziness or palpitations. In the previous 24 hours he is fluctuating between sinus and a-fib. No documented blood pressure this morning. Heart rate is 82 on the monitor in sinus. Due to monthly cost, eliquis was discontinued yesterday and coumadin resume with lovenox bridging. Chest CT yesterday revealed unchanged consolidative process in the left lower lobe, scattered nodularity noted with enlarging pleural effusion. Laboratory d keith reviewed, INR 1.2. GENERAL: Well-appearing, well-nourished and in no acute distress. NECK: Supple without JVD or thyromegaly. LUNGS: Respiration equal and unlabored. Faint expiratory wheeze, no rhonchi or rales. Diminished bilaterally. HEART: Regular rate and rhythm without murmurs, rubs or gallops. S1 and S2 heard. EXTREMITIES: Normal range of motion, no edema. No clubbing or cyanosis. Per ipheral pulses intact. ASSESSMENT Paroxysmal atrial fibrillation on Eliquis for anticoagulation currently maintaining sinus mechanism Aspiration pneumonia History of esophageal cancer status post J-tube placement Hypertension History of brain aneurysm PLAN Give coumadin 5 mg PO tonight along with lovenox for bridging. Target INR 2-3. Daily PT/INR level. Increase lopressor to 50 mg BID for better heart rate control. Nurse Practitioner note has been reviewed, I agree with a documented findings and plan of care. Patient was seen and examined. Objective - Vital Signs Vital signs: Vital Signs Temp 98.0 F 02/18/20 08:40 Pulse 110 H 02/19/20 08:00 Resp 16 02/18/20 20:35 BP 140/90 02/18/20 14:00 Pulse Ox 93 L 02/19/20 00:11 Intake & Output 02/18/20 02/19/20 02/19/20 18:59 06:59 18:59 Intake Total 730 670 Output Total 425 550 Balance 305 120 Weight 61.5 kg Intake: IV 480 380 Piperacillin-Tazobactam 3 200 200 .375 gm In Sodium Chloride 0.9% 100 ml @ 25 mls/hr IVPB Q8HR COUNT INCLUDES THE [facility] Rx# :[id number] Sodium Chloride 0.9% 1, 280 180 000 ml @ 20 mls/hr IV . Q24H COUNT INCLUDES THE [facility] Rx#:[id number] Tube Feeding 250 200 Other 90 Output: Urine 425 550 Other: Voiding Method Indwelling Catheter Indwelling Catheter - Labs CBC & Chem 7: 02/18/20 03:55 02/18/20 03:55 Labs: Abnormal Lab Results - Last 24 Hours (Table) 02/18/20 02/19/20 Range/Units 14:25 03:39 PT 12.5 H (9.0-12.0) sec INR 1.2 H 1.2 H (<1.2)
--- NOTE | 2020-02-19 10:25 | P.PN ---
Subjective Progress Note Date: 02/18/20 Acute hypoxic respiratory failure probably secondary to pneumonia 64-year-old the male admitted for pneumonia bilateral, predominantly in the right lower lobes. There is a concern about aspiration patient has been vomiting. Patient does take a modified diet by mouth at home does have a PEG tube in place. Patient the antibiotics were changed to Zosyn which is appropriate. Patient went into respiratory distress on some requirements have gone up because of which patient was transferred to ICU later in the day patient started having A. fib with rapid ventricular rate because of which patient was started on Cardizem and cardiology was consulted. I'm also consulting speech therapy because of his swallowing issues to assess if her appropriate for the patient to be continued on modified diet by mouth. 02/13/2020 Patient clinically looks better patient is being continued on Zosyn continued on IV fluids. Patient will undergo swallow evaluation today speech therapy was consulted. Patient remains nothing by mouth patient is being started on Eliquis for the atrial fibrillation anticoagulation patient is presently on oral amiodarone heart rate is better controlled today. On 02/14/2020 Patient is currently sitting in the chair comfortably. Still having baseline shortness of breath and bibasilar crackles on examination. Currently on high flow oxygen. Chest x-ray showed findings are not significantly changed. Basilar effusions and associated atelectasis versus pulmonary edema. Patient is being continued on IV antibiotic without Zosyn for possible aspiration and also a dose of Lasix IV was given. Patient has been continued on telemetry monitoring and heart rate is better controlled. Current medications reviewed. 02/15/2020 Patient is currently sitting in the chair comfortably. Saturating around 95% on 6 L oxygen via nasal cannula. Patient was started back on tube feedings today. Patient otherwise denied any complaints of chest pain worsening shortness breath. No nausea vomiting. Denied any abdominal pain. Currently maintaining sinus rhythm. Continued on Eliquis and amiodarone and cardiology is on board. Chest x-ray showed findings are not significantly changed. Basilar effusions and associated atelectasis versus pulmonary edema/pneumonia. Patient is on antibiotics in the form of Zosyn. Laboratory data showed WBC 10.7, hemoglobin 12.8 and platelets of 224 BUN is 18 and creatinine 0.58 Pulmonary and cardiology and general surgery is on board. Current medications reviewed On 02/16/2020 Patient is currently sitting in chair comfortably. Pulse ox about 90s at 3 L via nasal cannula. No fever no chills. Patient is being continued IV antibiotics.tube feedings were started and advance as tolerated. Blood and sputum cultures show no growth. Wound cultures from the abdomen showed Cassie albicans. Continued on dressing changes. No surgical intervention recommended. General surgery has seen the patient. Laboratory data showed WBC 10.0 hemoglobin 12.0 and platelets 253 BUN 16 and creatinine 0.61 patient is being transferred to general medical floor. 02/17/2020 Patient is currently lying in the bed comfortably. Still requiring oxygen at 3 L via nasal cannula. Awake alert oriented but lethargic. No fever no chills. Patient is being continued on antibiotics now for Zosyn. Chest x-ray showed right basilar infiltrates with small bilateral pleural ef fusions stable from comparison. Patient is tolerating tube feedings at 50 cc/h PEG tube site wound cultures showed Cassie albicans. Patient is being continued on duo nebs and Pulmicort. Heart rate is controlled. Anticoagulation with Eliquis and also on amiodarone and metoprolol 3 times daily. Cardiology and pulmonary is following. Laboratory data showed potassium 3.7, BUN 16 and creatinine 0.6 and hemoglobin 12.3 WBC 9.4 Discussed with his at bedside in detail. 02/18/2020 Patient had a repeat CAT scan which did show the infiltrates that were present before no significant worsening of these infiltrates. Patient cannot take anything via by mouth but will continue his J-tube feedings. Constitutional: Denied any fatigue denied any fever. Cardio vascular: denied any chest pain, palpitations Gastrointestinal denied any nausea vomiting Pulmonary: Denied any shortness of breath cough Neurologic denied any new focal deficits All inpatient medications were reviewed and appropriate changes in these medications as dictated in the interval history and assessment and plan. Objective - Vital Signs Vital signs: Vital Signs Temp 98.0 F 02/18/20 08:40 Pulse 110 H 02/19/20 08:00 Resp 16 02/18/20 20:35 BP 140/90 02/18/20 14:00 Pulse Ox 93 L 02/19/20 00:11 Intake & Output 02/18/20 02/19/20 02/19/20 18:59 06:59 18:59 Intake Total 730 670 Output Total 425 550 Balance 305 120 Weight 61.5 kg Intake: IV 480 380 Piperacillin-Tazobactam 3 200 200 .375 gm In Sodium Chloride 0.9% 100 ml @ 25 mls/hr IVPB Q8HR [facility] Rx# :[id number] Sodium Chloride 0.9% 1, 280 180 000 ml @ 20 mls/hr IV . Q24H [facility] Rx#:[id number] Tube Feeding 250 200 Other 90 Output: Urine 425 550 Other: Voiding Method Indwelling Catheter Indwelling Catheter - Exam PHYSICAL EXAMINATION: GENERAL: The patient is alert and oriented x3, not in any acute distress. Well developed, well nourished. HEENT: Pupils are round and equally reacting to light. EOMI. No scleral icterus. No conjunctival pallor. Normocephalic, atraumatic. No pharyngeal erythema. No thyromegaly. CARDIOVASCULAR: S1 and S2 present. No murmurs, rubs, or gallops. PULMONARY: Bibasilar crackles and scattered rhonchi. ABDOMEN: Soft, nontender, nondistended, normoactive bowel sounds. No palpable organomegaly. MUSCULOSKELETAL: No joint swelling or deformity. EXTREMITIES: No cyanosis, clubbing, or pedal edema. NEUROLOGICAL: Gross neurological examination did not reveal any focal deficits. SKIN: No rashes. - Labs CBC & Chem 7: 02/18/20 03:55 02/18/20 03:55 Labs: Abnormal Lab Results - Last 24 Hours (Table) 02/18/20 02/19/20 Range/Units 14:25 03:39 PT 12.5 H (9.0-12.0) sec INR 1.2 H 1.2 H (<1.2) Assessment and Plan Plan: -Acute hypoxic respiratory failure probably secondary to pneumonia predominantly in the right. patient does have pleural effusions on both sides. Patient is on Zosyn at this time there is a concern for aspiration. Patient is presently on high flow oxygen via Nasal cannula--at 6L-->3L. off BiPAP was on BiPAP in early days of admission presently not on any BiPAP and is on Unasyn cannula oxygen clinically doing well -Paraxysmal Atrial fibrillation with rapid ventricular rate. Patient is being switched to Eliquis. Patient is presently on amiodarone heart rate is fairly well controlled today -gastroesophageal reflux disease -Hypertension -benign prostatic hypertrophy -History of renal cancer and esophageal cancer with dysphagia and a PEG tube. Patient will be resumed on PEG tube feedings, speech therapy will be consulted because of his inability to swallow and patient does use modified diet at home by mouth -History of cerebral aneurysm. -AKROL
--- NOTE | 2020-02-19 11:46 | P.PN ---
Subjective Progress Note Date: 02/19/20 This is a 64-year-old white male patient of Dr. Claude Deluna that was admitted through the emergency department on 02/11/2020 when he came in for evaluation of shortness of breath, hypoxemia. Patient has a known history of esophageal cancer status post chemotherapy and NG tube placement, has a known history of COPD and CHF. Patient was started on empiric antibiotics in the form of Zosyn, nebulized bronchodilators, and diuretics, did require high flow oxygen per [employer], which was discontinued yesterday, patient is currently on 6 L of oxygen per high flow nasal cannula with a pulse ox of 93-95%, his tube feedings were held yesterday related to some leaking around the bolster, surgical services were consulted and Dr. Styles adjusted the bolster, and tube feedings were resumed today, with TwoCal HN currently at 10 ML per hour. Of note previously patient was receiving tube feedings and consuming some nausea fluids by mouth. He is currently strict nothing by mouth, and receiving all of his nutrition via his J-tube. He is sounding much less congested today, bronchospastic, breathing easier, more comfortably, he sitting up in the chair. His vital signs are stable, his been afebrile, hemodynamically stable, 0.9 normal saline infusing at a rate of 20 ML per hour, yesterday he received a dose of Lasix, and he produces 2.8 L and urine output, he is -1.4 L over last 24 hours, indwelling catheter is in place. On admission patient was in A. fib with RVR, he is currently in sinus mechanism, he is on oral amiodarone and Eliquis for anticoagulation, cardiology services are following. Today's chest x-ray has been reviewed, showing stable diffuse pleural parenchymal disease related to aspiration pneumonia. Today's labs have been reviewed, showing white blood cell, 10.7, hemoglobin of 12.8, sodium is 140, potassium is 3.4, the rest of electrolytes were within normal limits, BUN is 18 creatinine 0.58. All microbiology has shown no growth. He is on Zosyn for antibiotic coverage. The patient is seen today 02/16/2020 in follow-up in the intensive care unit. He is currently resting quite comfortably in bed. Awake and alert in no acute distress. Maintaining O2 saturations in the 90s on 3 L/m per nasal cannula. 0.9 normal saline at 20 ML's per hour. He is receiving nourishment via PEG tube with TwoCal HN at 30 MLS per hour with a goal of 40 ML's per hour. White count 10.0. Hemoglobin 12.0. Sodium 138. Potassium 4.2. Creatinine 0.61. Blood and wound and sputum cultures reveal no growth. He is currently on DuoNeb inhalations, Pulmicort inhalations, antibiotics in the form of Zosyn. The patient is seen today 02/17/2020 in follow-up in the intensive care unit. He is currently resting comfortably in bed. Awake and alert in no acute distress. He is maintaining good O2 saturations in the 90s on 3 L/m per nasal cannula. Chest x-ray reveals right basilar infiltrate with small bilateral pleural effusions. Stable compared to previous. 0.9 normal saline at 20 ML's per hour. Currently receiving TwoCal HN at 40 MLs per hour with a goal of 50 ML's per hour. Blood culture reveals no growth. Sputum culture reveals no growth. Abdomen reveals Cassie. White count 9.4. Hemoglobin 12.3. Sodium 142. Potassium 3.7. Creatinine 0.60. He remains on Zosyn. Anticoagulated with Eliquis. On 02/18/2020 and seeing the patient for a follow-up in the intensive care unit. The patient is having some difficulties with his J-tube. This was found to be clotted again and surgical consultation was again obtained in regards to this problem. In terms of his breathing, is breathing comfortably at 3 L of oxygen by nasal cannula with a pulse of 74%. He is on IV fluids with normal saline at rate of 20 mL an hour. He is in normal sinus rhythm. His chest x-ray still showing increased opacity in lung bases bilaterally and we opted to proceed with a CAT scan of the chest to characterized his abnormalities. The patient has no fever. The patient has no chills. The patient is taking some material orally for pleasure. I reviewed the CAT scan of the chest that was done this morning. The CAT scan showed small better pleural effusion. There is a limited consoli dation process in the left lower lobe. Some limited nodularity is also noted and this appears segment of the left lower lobe. The patient has postsurgical changes with previous esophagectomy and gastric pull. No evidence of any lymphadenopathy. No evidence of any cardiomegaly. 02/19/2020, the patient is resting comfortably in bed and oxidation is slightly improved and currently is on 2 L about 2 by nasal cannula. His current pulse ox is 92%. A CAT scan of the chest was obtained yesterday and showed no significant pleural effusion. There was a consolidative process in the left lower lobe unchanged compared to the previous examination. There was also a linear atelectasis in the right lower lobe. There is also nodularity identified in the right lower lobe. Addition the nodularity in this appears segment of the left lower lobe. The previously noted nodules in the left lower lobe are less conspicuous and there is small bilateral pleural effusions bilaterally. The patient is postop esophagectomy and gastric pull-through. He has no fever. No chills. The issues and a competition related to J-tube feeding has been dealt with and the patient's catheter has been flushed appropriately by the nursing staff and the patient is currently receiving enteral feeding vi the jejunostomy tube. The patient is also in atrial fibrillation. Anticoagulation will be resumed and the patient be started back on Eliquis for now. No respiratory distress. Awake and alert and following commands and answering questions. Objective - Vital Signs Vital signs: Vital Signs Temp 98.0 F 02/18/20 08:40 Pulse 110 H 02/19/20 08:00 Resp 16 02/18/20 20:35 BP 140/90 02/18/20 14:00 Pulse Ox 93 L 02/19/20 00:11 Intake & Output 02/18/20 02/19/20 02/19/20 18:59 06:59 18:59 Intake Total 730 670 270 Output Total 425 550 400 Balance 305 120 -130 Weight 61.5 kg 61.5 kg Intake: IV 480 380 60 Piperacillin-Tazobactam 3 200 200 .375 gm In Sodium Chloride 0.9% 100 ml @ 25 mls/hr IVPB Q8HR [facility] Rx# :[id number] Sodium Chloride 0.9% 1, 280 180 60 000 ml @ 20 mls/hr IV . Q24H [facility] Rx#:[id number] Tube Feeding 250 200 150 Other 90 60 Output: Urine 425 550 400 Other: Voiding Method Indwelling Catheter Indwelling Catheter Indwelling Catheter # Bowel Movements 2 - Exam GENERAL EXAM: Alert, very pleasant, frail-looking 64-year-old male patient, he currently on 3 L per high flow nasal cannula with a pulse ox of 94%, comfortable in no apparent distress. HEAD: Normocephalic/atraumatic. EYES: Normal reaction of pupils, equal size. Conjunctiva pink, sclera white. NOSE: Clear with pink turbinates. THROAT: No erythema or exudates. NECK: No masses, no JVD, no thyroid enlargement, no adenopathy. CHEST: No chest wall deformity. Symmetrical expansion. LUNGS: Equal air entry with scattered wheezes and rhonchi, improved CVS: Regular rate and rhythm, normal S1 and S2, no gallops, no murmurs, no rubs ABDOMEN: Soft, nontender. No hepatosplenomegaly, normal bowel sounds, no guarding or rigidity. G-tube is in place, with the tube feedings infusing, TwoCal HN at a rate of 400 ML per hour EXTREMITIES: No clubbing, no edema, no cyanosis, 2+ pulses and upper and lower extremities. MUSCULOSKELETAL: Muscle strength and tone normal. SPINE: No scoliosis or deformity SKIN: No rashes CENTRAL NERVOUS SYSTEM: No focal deficits, tone is normal in all 4 extremities. PSYCHIATRIC: Alert and oriented -3. Appropriate affect. Intact judgment and insight. - Labs CBC & Chem 7: 02/18/20 03:55 02/18/20 03:55 Labs: Abnormal Lab Results - Last 24 Hours (Table) 02/18/20 02/19/20 Range/Units 14:25 03:39 PT 12.5 H (9.0-12.0) sec INR 1.2 H 1.2 H (<1.2) Assessment and Plan Plan: 1 Acute hypoxemic respiratory failure secondary to aspiration pneumonia with bibasilar infiltrates, currently down to 2 L per high flow nasal cannula. The CAT scan of the chest was done and the patient remains on IV Zosyn. No significant pleural effusion that is amenable thoracentesis based on the CAT scan findings. The patient is receiving enteral feeding for nutritional support. Watch for any aspiration. 2 History of esophageal cancer, status post gastric pull and the patient has gastroparesis and the patient is being fed through a J-tube. 3 History of recurrent aspiration 4 History of seizure disorder 5 History of brain aneurysm, and the patient had a [employer] aneurysm rupture 25 years ago an and comprehension and he neglectson the left side and has history of seizures 6 History of chronic atrial fibrillation, with RVR on admission, currently in sinus mechanism, with occasional bursts of A. fib, controlled, on amiodarone and warfarin was also started today 7 GERD/reflux 8 Sleep apnea syndrome, does not utilize a CPAP machine 9 Mild hypokalemia related to diuretic therapy, corrected per protocol 10 previous history of GI bleed, 11 previous history of a left heel wound, treated at the wound center 12 difficult mobility and the patient wheelchair Plan Continue enteral feeding for nutritional support via a J-tube Continue IV Zosyn CAT scan of the chest was noted Continue anticoagulation and the patient will be restarted back on Eliquis 5 mg by mouth twice a day Continue the combination of amiodarone and metoprolol The FiO2 is down to 2 L The patient can be chest at the medical surgical floor
--- NOTE | 2020-02-19 14:00 | XR ---
EXAMINATION TYPE: XR chest 1V portable DATE OF EXAM: 02/19/2020 CLINICAL HISTORY: Shortness of breath possible aspiration. TECHNIQUE: Single AP portable upright view of the chest is obtained. COMPARISON: Chest x-ray from [address] chest one day earlier. FINDINGS: Background chronic emphysematous change with bibasilar opacities. Surgical clips from esop hagectomy and gastric pull-up redemonstrated. Cardiac silhouette size also remain within normal limit s, silhouetting left heart border redemonstrated similar to the most recent prior study. Overlying ri ght-sided [employer] shunt catheter redemonstrated. Osseous structures remain demineralized. IMPRESSION: Chronic changes with bibasilar acute infiltrate and/or atelectasis and probable small jacki ateral pleural effusions are all redemonstrated.
[2020-02-19] MEDS: ACETAMINOPHEN TAB 325 MG TAB PO PRN ×2 (16:14→23:47)
--- NOTE | 2020-02-19 17:03 | P.PN ---
Subjective Acute hypoxic respiratory failure probably secondary to pneumonia 64-year-old the male admitted for pneumonia bilateral, predominantly in the right lower lobes. There is a concern about aspiration patient has been vomiting. Patient does take a modified diet by mouth at home does have a PEG tube in place. Patient the antibiotics were changed to Zosyn which is appropriate. Patient went into respiratory distress on some requirements have gone up because of which patient was transferred to ICU later in the day patient started having A. fib with rapid ventricular rate because of which patient was started on Cardizem and cardiology was consulted. I'm also consulting speech therapy because of his swallowing issues to assess if her appropriate for the patient to be continued on modified diet by mouth. 02/13/2020 Patient clinically looks better patient is being continued on Zosyn continued on IV fluids. Patient will undergo swallow evaluation today speech therapy was consulted. Patient remains nothing by mouth patient is being started on Eliquis for the atrial fibrillation anticoagulation patient is presently on oral amiodarone heart rate is better controlled today. On 02/14/2020 Patient is currently sitting in the chair comfortably. Still having baseline shortness of breath and bibasilar crackles on examination. Currently on high flow oxygen. Chest x-ray showed findings are not significantly changed. Basilar effusions an d associated atelectasis versus pulmonary edema. Patient is being continued on IV antibiotic without Zosyn for possible aspiration and also a dose of Lasix IV was given. Patient has been continued on telemetry monitoring and heart rate is better controlled. Current medications reviewed. 02/15/2020 Patient is currently sitting in the chair comfortably. Saturating around 95% on 6 L oxygen via nasal cannula. Patient was started back on tube feedings today. Patient otherwise denied any complaints of chest pain worsening shortness breath. No nausea vomiting. Denied any abdominal pain. Currently maintaining sinus rhythm. Continued on Eliquis and amiodarone and cardiology is on board. Chest x-ray showed findings are not significantly changed. Basilar effusions and associated atelectasis versus pulmonary edema/pneumonia. Patient is on antibiotics in the form of Zosyn. Laboratory data showed WBC 10.7, hemoglobin 12.8 and platelets of 224 BUN is 18 and creatinine 0.58 Pulmonary and cardiology and general surgery is on board. Current medications reviewed On 02/16/2020 Patient is currently sitting in chair comfortably. Pulse ox about 90s at 3 L via nasal cannula. No fever no chills. Patient is being continued IV antibiotics.tube feedings were started and advance as tolerated. Blood and sputum cultures show no growth. Wound cultures from the abdomen showed Cassie albicans. Continued on dressing changes. No surgical intervention recommended. General surgery has seen the patient. Laboratory data showed WBC 10.0 hemoglobin 12.0 and platelets 253 BUN 16 and creatinine 0.61 patient is being transferred to general medical floor. 02/17/2020 Patient is currently lying in the bed comfortably. Still requiring oxygen at 3 L via nasal cannula. Awake alert oriented but lethargic. No fever no chills. Patient is being continued on antibiotics now for Zosyn. Chest x-ray showed right basilar infiltrates with small bilateral pleural effusions stable from comparison. Patient is tolerating tube feedings at 50 cc/h PEG tube site wound cultures showed Cassie albicans. Patient is being continued on duo nebs and Pulmicort. Heart rate is controlled. Anticoagulation with Eliquis and also on amiodarone and metoprolol 3 times daily. Cardiology and pulmonary is following. Laboratory data showed potassium 3.7, BUN 16 and creatinine 0.6 and hemoglobin 12.3 WBC 9.4 Discussed with his at bedside in detail. 02/18/2020 Patient had a repeat CAT scan which did show the infiltrates that were present before no significant worsening of these infiltrates. Patient cannot take an ything via by mouth but will continue his J-tube feedings. 02/19/2020 Patient was doing well earlier today morning and subsequently went into respiratory failure again presently requiring BiPAP. Repeat chest x-ray did not show any new infiltrate. Constitutional: Denied any fatigue denied any fever. Cardio vascular: denied any chest pain, palpitations Gastrointestinal denied any nausea vomiting Pulmonary: Denied any shortness of breath cough Neurologic denied any new focal deficits All inpatient medications were reviewed and appropriate changes in these medications as dictated in the interval history and assessment and plan. Objective - Vital Signs Vital signs: Vital Signs Temp 98.7 F 02/19/20 12:00 Pulse 122 H 02/19/20 16:33 Resp 40 H 02/19/20 16:33 BP 103/64 02/19/20 12:00 Pulse Ox 94 L 02/19/20 14:50 Intake & Output 02/18/20 02/19/20 02/19/20 18:59 06:59 18:59 Intake Total 730 670 270 Output Total 425 550 400 Balance 305 120 -130 Weight 61.5 kg 61.5 kg Intake: IV 480 380 60 Piperacillin-Tazobactam 3 200 200 .375 gm In Sodium Chloride 0.9% 100 ml @ 25 mls/hr IVPB Q8HR [facility] Rx# :[id number] Sodium Chloride 0.9% 1, 280 180 60 000 ml @ 20 mls/hr IV . Q24H [facility] Rx#:[id number] Tube Feeding 250 200 150 Other 90 60 Output: Urine 425 550 400 Other: Voiding Method Indwelling Catheter Indwelling Catheter Indwelling Catheter # Bowel Movements 2 - Exam PHYSICAL EXAMINATION: GENERAL: The patient is alert and oriented x3, is in respiratory distress and on BiPAP. Well developed, well nourished. HEENT: Pupils are round and equally reacting to light. EOMI. No scleral icterus. No conjunctival pallor. Normocephalic, atraumatic. No pharyngeal erythema. No thyromegaly. CARDIOVASCULAR: S1 and S2 present. No murmurs, rubs, or gallops. PULMONARY: Bibasilar crackles and scattered rhonchi. No significant change compared to yesterday. ABDOMEN: Soft, nontender, nondistended, normoactive bowel sounds. No palpable organomegaly. MUSCULOSKELETAL: No joint swelling or deformity. EXTREMITIES: No cyanosis, clubbing, or pedal edema. NEUROLOGICAL: Gross neurological examination did not reveal any focal deficits. SKIN: No rashes. - Labs CBC & Chem 7: 02/18/20 03:55 02/18/20 03:55 Labs: Abnormal Lab Results - Last 24 Hours (Table) 02/19/20 Range/Units 03:39 PT 12.5 H (9.0-12.0) sec INR 1.2 H (<1.2) Assessment and Plan Plan: -Acute hypoxic respiratory failure secondary to pneumonia predominantly in the right. patient does have pleural effusions on both sides. Patient is on Zosyn at this time there is a concern for aspiration. Respiratory status worsened again today in spite of all aggressive measures for aspiration. Patient does have bowel sounds does have a G-tube at this time. Patient is presently on BiPAP again. -Paraxysmal Atrial fibrillation with rapid ventricular rate Patient is being switched to Eliquis. Patient is presently on amiodarone , patient heart rate went up again today patient is presently on bridging Lovenox along with the Coumadin as Eliquis is too expensive. -gastroesophageal reflux disease -Hypertension -benign prostatic hypertrophy -History of renal cancer and esophageal cancer with dysphagia and a PEG tube. Patient will be resumed on PEG tube feedings, speech therapy will be consulted because of his inability to swallow and patient does use modified diet at home by mouth -History of cerebral aneurysm. -KAROL His overall prognosis is extremely poor
[2020-02-19] MEDS ORDERED: WARFARIN 2.5 MG TAB PO ONE (18:00)
[2020-02-19] MEDS ORDERED: WARFARIN 5 MG TAB PO ONE (18:00)
[2020-02-19] MEDS ORDERED: DEXTROSE 5% IN WATER 100 ML with AMIODARONE 150 MG IV ONE (19:15)
[2020-02-19] MEDS: AMIODARONE 300 MG in DEXTROSE 5% IN WATER 250 ML IV SCH ×2 (21:55)
[2020-02-19] MEDS ORDERED: ACETAMINOPHEN IV (For NPO) 1,000 MG in EMPTY BAG 1 BAG IVPB ONE (22:01)
[2020-02-19] MEDS ORDERED: propofoL 100 ML IV ONE (22:20)
--- NOTE | 2020-02-19 22:20 | XR ---
EXAMINATION TYPE: XR chest 1V portable DATE OF EXAM: 02/19/2020 COMPARISON: Today HISTORY: Short of breath TECHNIQUE: Single view FINDINGS: There is patchy airspace infiltrate and atelectasis at both lung bases. There is right-side d ventriculoperitoneal shunt catheter. There is no heart failure. There is widening of the mediastinu m consistent with a dilated esophagus or gastric pull-through. IMPRESSION: Moderate basilar pulmonary infiltrates and atelectasis unchanged compared to exam earlier today at 1:00 PM. No heart failure seen.
[2020-02-19] MEDS ORDERED: DILTIAZEM DRIP BOLUS FROM BAG 1 MG SOLN IV ONE (23:04)
--- NOTE | 2020-02-19 23:06 | XR ---
EXAMINATION TYPE: XR chest 1V portable DATE OF EXAM: 02/19/2020 COMPARISON: Today HISTORY: Check tube placement TECHNIQUE: Single view FINDINGS: The endotracheal tube is 2.8 cm from the javan. There is bilateral patchy basilar pulmonar y infiltrates and atelectasis. There are chest leads. There is right-sided ventriculoperitoneal shunt catheter. IMPRESSION: Bilateral patchy pulmonary infiltrates and atelectasis unchanged. Widening of the mediast inum that could relate to gastric pull-through. Chest unchanged.
[2020-02-19] MEDS ORDERED: CHLORHEXIDINE GLUCONATE 15 ML CUP MUCOUS MEM ONE (23:11)
[2020-02-19] MEDS: DILTIAZEM 125 MG in SODIUM CHLORIDE 0.9% 100 ML IV SCH ×2 (23:18→23:25)
[2020-02-19] MEDS ORDERED: PROPOFOL 10 MG/ML 20 ML VIAL IV ONE (23:30)
[2020-02-19] MEDS ORDERED: SUCCINYLCHOLINE CHLORIDE VIAL 200 MG/10 ML VIAL IV ONE (23:30)
[2020-02-19] MEDS ORDERED: ROCURONIUM 10 MG/ML (10 ML VIAL) IV ONE (23:30)
[2020-02-19] MEDS: DOXAZOSIN 1 MG TAB PO SCH (23:49)
[2020-02-19 23:50] LABS: ABG Base Excess -2.5 mmol/L; ABG HCO3 24 mmol/L (21-25); ABG PCO2 50 mmHg (35-45); ABG PH 7.29 (7.35-7.45); ABG PO2 97 mmHg (83-108); ABG TCO2 26 mmol/L (19-24); Allen Test Performed? Yes
[2020-02-20] MEDS ORDERED: NOREPINEPHRIN 4 MG-0.9% NS PMX 4 MG/250 ML ML IV ONE (01:39)
[2020-02-20 01:51] LABS: ABG Base Excess -5.9 mmol/L; ABG HCO3 20 mmol/L (21-25); ABG Oxygen Saturation 89.6 % (94-97); ABG PCO2 35 mmHg (35-45); ABG PH 7.36 (7.35-7.45); ABG PO2 61 mmHg (83-108); ABG TCO2 21 mmol/L (19-24); Allen Test Performed? Yes
[2020-02-20] MEDS: NOREPINEPHRINE 4 MG in SODIUM CHLORIDE 0.9% 250 ML IV SCH ×5 (01:51→08:23)
[2020-02-20 01:59] LABS: Glucose,Whole Blood 133 mg/dL (75-99)
--- NOTE | 2020-02-20 02:15 | P.EN ---
code blue note, please refer to paper charting for exact sequence of events and intervention cardiopulmonary resuscitation initiated following ACLS protocol for asystole. patient had one round of CPR and given one dose of epi, with successful ROSC. family updated, questions answered primary team paged.
[2020-02-20] MEDS ORDERED: SODIUM CHLORIDE 0.9% 2,000 ML IV ONE (02:18)
[2020-02-20 02:23] LABS: Potassium 4.5 mmol/L (3.5-5.1)
--- NOTE | 2020-02-20 02:27 | XR ---
EXAMINATION TYPE: XR chest 1V portable DATE OF EXAM: 02/20/2020 COMPARISON: Yesterday HISTORY: Chest compressions. CPR. TECHNIQUE: FINDINGS: Endotracheal tube is 4.5 cm from the javan. There is right-sided ventriculoperitoneal shun t catheter. There are patchy areas of airspace infiltrate and atelectasis in both lower lobes. There is no pneumothorax. There is blunting of costophrenic angles. There is pulmonary patchy airspace aisha a. IMPRESSION: There is patchy pulmonary edema with lower lobe pulmonary infiltrates and atelectasis. Ch est unchanged.
[2020-02-20 02:28] LABS: Basophils # (A) 0.1 k/uL (0-0.2); Basophils % (A) 0 %; Eosinophils # (A) 0.1 k/uL (0-0.7); Eosinophils % (A) 0 %; HCT 42.1 % (39.0-53.0); HGB 12.9 gm/dL (13.0-17.5); Hypochromasia Moderate; Lymphocytes # (A) 0.4 k/uL (1.0-4.8); Lymphocytes % (A) 2 %; MCHC 30.6 g/dL (31.0-37.0); MCV 91.4 fL (80.0-100.0); Mean Platelet Volume 8.2; Monocytes # (A) 0.6 k/uL (0-1.0); Monocytes % (A) 3 %; Neutrophils # (A) 19.5 k/uL (1.3-7.7); Neutrophils % (A) 94 %; RBC 4.61 m/uL (4.30-5.90); RDW 14.4 % (11.5-15.5); WBC 20.6 k/uL (3.8-10.6)
[2020-02-20 02:39] LABS: Platelet Count 402 k/uL (150-450)
--- NOTE | 2020-02-20 02:43 | XR ---
EXAMINATION TYPE: XR chest 1V portable DATE OF EXAM: 02/20/2020 COMPARISON: Today HISTORY: Follow-up CPR TECHNIQUE: FINDINGS: Endotracheal tube is 5 cm from the javan. There is nasogastric tube and the tip is overlyi ng the heart and probably in the distal esophagus. There is ventriculoperitoneal shunt catheter on th e right side. There are chest leads. There is patchy pulmonary infiltrates and atelectasis in both lo wer lobes. There is some mild infiltrate in both upper lobes. There is probably congestive heart fail ure. There is blunting of the costophrenic angles. IMPRESSION: Pulmonary congestion and pulmonary infiltrates with pleural fluid and consistent with RDS or congestive heart failure. No change. NG tube is probably in the distal esophagus.
[2020-02-20 04:49] LABS: ABG Base Excess -6.8 mmol/L; ABG HCO3 19 mmol/L (21-25); ABG Oxygen Saturation 93.9 % (94-97); ABG PCO2 35 mmHg (35-45); ABG PH 7.35 (7.35-7.45); ABG PO2 76 mmHg (83-108); ABG TCO2 20 mmol/L (19-24); Allen Test Performed? Yes
[2020-02-20] MEDS: METOCLOPRAMIDE 5 MG/ML 2 ML VIAL IVP SCH ×3 (05:56→20:26)
[2020-02-20] MEDS ORDERED: CISATRACURIUM 2 MG/ML 5 ML VIAL IV ONE (07:06)
[2020-02-20] MEDS ORDERED: SODIUM CHLORIDE 0.9% 1,000 ML IV ONE ×2 (07:07→07:19)
[2020-02-20] MEDS ORDERED: VANCOMYCIN IV PER PHARMACY 1 EACH MISC MISCELLANE PRN (07:22)
--- NOTE | 2020-02-20 07:54 | XR ---
EXAMINATION TYPE: XR chest 1V portable DATE OF EXAM: 02/20/2020 CLINICAL HISTORY: Central line placement . History of esophagectomy with gastric pull-through. TECHNIQUE: Semiupright portable view of the chest COMPARISON: 02/20/2020 chest radiograph at 2:[address] chest 02/18/2020 FINDINGS: The bilateral lung apices are not included on the image. Interval placement of left subcla vian central venous catheter with distal tip over the cavoatrial junction. Endotracheal tube distal t ip midway between the clavicular heads and the javan. Endotracheal tube distal tip and side-port ove rlie the heart, consistent with contour of gastric pull-through seen on CT chest 02/18/2020, likely wi th mild interval advancement versus comparison earlier today. The cardiomediastinal silhouette is unc hanged. Bilateral small pleural effusions and bibasilar airspace opacities redemonstrated. There is n o pneumothorax of the visualized lung otero, with exclusion of the lung apices. IMPRESSION: Left subclavian central venous catheter distal tip over the cavoatrial junction. No visua lized pneumothorax, although the lung apices are not included on the image.
[2020-02-20] MEDS ORDERED: VANCOMYCIN 1,250 MG in SODIUM CHLORIDE 0.9% 250 ML IVPB ONE (08:00)
[2020-02-20] MEDS: IPRATROPIUM-ALBUTEROL 3 ML NEB INHALATION SCH ×4 (08:07→19:36)
[2020-02-20 08:25] LABS: Prothrombin Time 19.2 sec (9.0-12.0)
[2020-02-20 08:26] LABS: HCT 33.3 % (39.0-53.0); HGB 10.3 gm/dL (13.0-17.5); Hypochromasia Marked; MCV 93.7 fL (80.0-100.0); Mean Platelet Volume 8.2; Platelet Count 324 k/uL (150-450); RBC 3.55 m/uL (4.30-5.90); RDW 14.4 % (11.5-15.5); WBC 21.5 k/uL (3.8-10.6)
[2020-02-20 08:27] LABS: Calcium 6.9 mg/dL (8.4-10.2)
[2020-02-20 08:29] LABS: ABG Base Excess -10.4 mmol/L; ABG HCO3 15 mmol/L (21-25); ABG Oxygen Saturation 99.8 % (94-97); ABG PCO2 26 mmHg (35-45); ABG PH 7.37 (7.35-7.45); ABG PO2 231 mmHg (83-108); ABG TCO2 16 mmol/L (19-24)
[2020-02-20 08:31] LABS: Allen Test Performed? no
[2020-02-20] MEDS: ENOXAPARIN 60 MG/0.6 ML SYRINGE SQ SCH (08:46)
[2020-02-20] MEDS: CHLORHEXIDINE GLUCONATE 15 ML CUP MUCOUS MEM SCH ×2 (08:46→20:20)
[2020-02-20] MEDS: PIPERACILLIN-TAZOBACTAM 3.375 GM in SODIUM CHLORIDE 0.9% 100 ML IVPB SCH ×2 (08:47→20:19)
[2020-02-20] MEDS: PANTOPRAZOLE 40 MG/10 ML VIAL IVP SCH (08:47)
[2020-02-20] MEDS: AMIODARONE 300 MG in DEXTROSE 5% IN WATER 250 ML IV SCH ×4 (09:21→21:33)
--- NOTE | 2020-02-20 09:26 | P.PN ---
Subjective This is a pleasant 64-year-old male past medical history significant for paroxysmal atrial fibrillation on long-term anticoagulation, esophageal cancer with J-tube in place, hypertension and brain aneurysm in the past. He follows in the office with Dr. Claros. He was having significant respiratory distress yesterday and was intubated around 2230 per anesthesia. According to the nurse she was at the bedside around 0120 and noticed on the monitor that he started to myriam down and eventually went asystole prompting code blue. He had approximately 1 minutes of CPR and 1 mg of epinephrine. His heart rates have been fluctuating between afib and sinus. He is currently on amiodarone infusion along with lopressor. Blood pressure 94/63 via the arterial line with CVP of 12. Most recent echo was in October 2019, revealing EF 55-60%. Laboratory data reviewed, WBC 21.5, hemoglobin 10.3, platelets 324, INR 2.0, pH 7.37, pCO2 26, pO2 231, sodium 143, potassium 5.0, creatinine 1.07 and lactic acid 2.8. GENERAL: Comfortable in bed on mechanical ventilation. NECK: Supple without JVD or thyromegaly. LUNGS: Respiration equal and unlabored. Diminished bilaterally. HEART: Irregular rate and rhythm without murmurs, rubs or gallops. S1 and S2 h eard. EXTREMITIES: Normal range of motion, no edema. No clubbing or cyanosis. Peripheral pulses intact. ASSESSMENT Paroxysmal atrial fibrillation on Eliquis for anticoagulation currently maintaining sinus mechanism Acute hypoxic respiratory failure requiring mechanical ventilation Asystole arrest Aspiration pneumonia Leukocytosis History of esophageal cancer status post J-tube placement Hypertension History of brain aneurysm PLAN Continue to monitor heart rate closely. Not currently on beta mirna secondary to tachybradycardia. May require TVP. Repeat limited echo to assess LV function. Further recommendations to follow based upon clinical course. Nurse Practitioner note has been reviewed, I agree with a documented findings and plan of care. Patient was seen and examined. Objective - Vital Signs Vital signs: Vital Signs Temp 100.6 F H 02/20/20 04:00 Pulse 109 H 02/20/20 08:25 Resp 45 H 02/20/20 07:00 BP 107/82 02/20/20 07:00 Pulse Ox 94 L 02/20/20 07:00 Intake & Output 02/19/20 02/20/20 02/20/20 18:59 06:59 18:59 Intake Total 330 3208.374 20 Output Total 795 1691 15 Balance -465 1517.374 5 Weight 61.5 kg Intake: IV 120 240 20 Sodium Chloride 0.9% 1, 120 240 20 000 ml @ 20 mls/hr IV . Q24H [facility] Rx#:[id number] Intake, IV Titration 2968.374 Amount Diltiazem 125 mg In 15.875 Sodium Chloride 0.9% 100 ml @ Per Protocol IV .Q0M [facility] Rx#:[id number] Norepinephrine 4 mg In 922.425 Sodium Chloride 0.9% 250 ml @ 0.05 MCG/KG/MIN 11. 716 mls/hr IV .[id number] [facility] Rx#:[id number] Sodium Chloride 0.9% 2, 2000 000 ml @ 999 mls/hr IV . Q2H1M [facility] Rx#:[id number] propofoL 1,000 mg In 30.074 Empty Bag 1 bag @ Titrate IV .Q0M [facility] Rx#: [id number] Tube Feeding 150 Other 60 Output: Gastric Drainage 700 Urine 795 290 15 Stool 1 Emesis 700 Other: Voiding Method Indwelling Catheter Indwelling Catheter # Bowel Movements 2 ABP, PAP, CO, CI - Last Documented Arterial Blood Pressure 63/53 - Labs CBC & Chem 7: 02/20/20 07:52 02/20/20 07:52 Labs: Abnormal Lab Results - Last 24 Hours (Table) 02/19/20 02/20/20 02/20/20 Range/Units 23:45 01:10 01:46 WBC (3.8-10.6) k/uL RBC (4.30-5.90) m/uL Hgb (13.0-17.5) gm/dL Hct (39.0-53.0) % MCHC (31.0-37.0) g/dL Neutrophils # (1.3-7.7) k/uL Lymphocytes # (1.0-4.8) k/uL PT (9.0-12.0) sec INR (<1.2) ABG pH 7.29 L (7.35-7.45) ABG pCO2 50 H (35-45) mmHg ABG pO2 61 L (83-108) mmHg ABG HCO3 20 L (21-25) mmol/L ABG Total CO2 26 H (19-24) mmol/L ABG O2 Saturation 89.6 L (94-97) % ABG Lactic Acid 2.8 H* (0.5-1.6) mmol/L Chloride (98-107) mmol/L Carbon Dioxide (22-30) mmol/L BUN (9-20) mg/dL Glucose (74-99) mg/dL POC Glucose (mg/dL) (75-99) mg/dL Plasma Lactic Acid Twin (0.7-2.0) mmol/L Calcium (8.4-10.2) mg/dL 02/20/20 02/20/20 02/20/20 Range/Units 01:58 02:00 02:00 WBC 20.6 H (3.8-10.6) k/uL RBC (4.30-5.90) m/uL Hgb 12.9 L (13.0-17.5) gm/dL Hct (39.0-53.0) % MCHC 30.6 L (31.0-37.0) g/dL Neutrophils # 19.5 H (1.3-7.7) k/uL Lymphocytes # 0.4 L (1.0-4.8) k/uL PT (9.0-12.0) sec INR (<1.2) ABG pH (7.35-7.45) ABG pCO2 (35-45) mmHg ABG pO2 (83-108) mmHg ABG HCO3 (21-25) mmol/L ABG Total CO2 (19-24) mmol/L ABG O2 Saturation (94-97) % ABG Lactic Acid (0.5-1.6) mmol/L Chloride 112 H (98-107) mmol/L Carbon Dioxide 19 L (22-30) mmol/L BUN 26 H (9-20) mg/dL Glucose 132 H (74-99) mg/dL POC Glucose (mg/dL) 133 H (75-99) mg/dL Plasma Lactic Acid Twin (0.7-2.0) mmol/L Calcium 8.0 L (8.4-10.2) mg/dL 02/20/20 02/20/20 02/20/20 Range/Units 04:44 05:05 07:52 WBC (3.8-10.6) k/uL RBC (4.30-5.90) m/uL Hgb (13.0-17.5) gm/dL Hct (39.0-53.0) % MCHC (31.0-37.0) g/dL Neutrophils # (1.3-7.7) k/uL Lymphocytes # (1.0-4.8) k/uL PT 19.2 H (9.0-12.0) sec INR 2.0 H (<1.2) ABG pH (7.35-7.45) ABG pCO2 (35-45) mmHg ABG pO2 76 L (83-108) mmHg ABG HCO3 19 L (21-25) mmol/L ABG Total CO2 (19-24) mmol/L ABG O2 Saturation 93.9 L (94-97) % ABG Lactic Acid (0.5-1.6) mmol/L Chloride (98-107) mmol/L Carbon Dioxide (22-30) mmol/L BUN (9-20) mg/dL Glucose (74-99) mg/dL POC Glucose (mg/dL) (75-99) mg/dL Plasma Lactic Acid Twin 2.8 H* (0.7-2.0) mmol/L Calcium (8.4-10.2) mg/dL 02/20/20 02/20/20 02/20/20 Range/Units 07:52 07:52 08:26 WBC 21.5 H (3.8-10.6) k/uL RBC 3.55 L (4.30-5.90) m/uL Hgb 10.3 L (13.0-17.5) gm/dL Hct 33.3 L (39.0-53.0) % MCHC (31.0-37.0) g/dL Neutrophils # (1.3-7.7) k/uL Lymphocytes # (1.0-4.8) k/uL PT (9.0-12.0) sec INR (<1.2) ABG pH (7.35-7.45) ABG pCO2 26 L (35-45) mmHg ABG pO2 231 H (83-108) mmHg ABG HCO3 15 L (21-25) mmol/L ABG Total CO2 16 L (19-24) mmol/L ABG O2 Saturation 99.8 H (94-97) % ABG Lactic Acid (0.5-1.6) mmol/L Chloride 119 H (98-107) mmol/L Carbon Dioxide 16 L (22-30) mmol/L BUN 29 H (9-20) mg/dL Glucose 100 H (74-99) mg/dL POC Glucose (mg/dL) (75-99) mg/dL Plasma Lactic Acid Twin (0.7-2.0) mmol/L Calcium 6.9 L (8.4-10.2) mg/dL
[2020-02-20] MEDS: NOREPINEPHRINE 32 MG in SODIUM CHLORIDE 0.9% 218 ML IV SCH (09:36)
--- NOTE | 2020-02-20 10:16 | CDI ---
Documentation Clarification Form Date: 02/20/2020 09:52:44 AM From: Jacqueline Hernandez CCS, CCDS Admit Date: 02/11/2020 01:12:00 PM Patient Name: Umesh Jarquin Visit Number: [id number] Discharge Date: ATTENTION: The Clinical Documentation Specialists (CDI) and [facility] Coding Staff appreciate your assistance in clarifying documentation. Please respond to the clarification below the line at the bottom and electronically sign. The CDI & [facility] Coding staff will review the response and follow-up if needed. Please note: Queries are made part of the Legal Health Record. If you have any questions, please contact the author of this message via ITS. Dr. Doc Byrnes: CHF is documented in the Pulmonary/Critical Care Progress Notes 02/12 through 02/18 as a known history without further specificity. Heart failure or RDS is seen on the 02/19 CXR with pulmonary congestion & pulmonary infiltrates. History/Risk Factors: Paroxysmal Atrial Fibrillation, GERD, Hypertension, Pneumonia, BPH, Seizure Disorder, Sleep Apnea (CPAP), Dysphagia status post Chemo/Radiation secondary to Esophageal Cancer, Aspiration Pneumonia, Has Jevity feeding tube. Clinical Indicators: Patient presented to the ED on 02/10 via EMS with SOB. History of esophageal cancer currently on chemotherapy. Denied history of COPD or CHF. VS 02/10: T 98.5, P 101-107^, R 18-32^, BP 131/91 - 141/101, PO 96 4Lnc - 91 4Lnc. VS 02/19: T 100.6^, P 73 - 123, R 30-34^, BP 87/57 - 110/65, PO 95 - 94 on vent. BNP 02/10: 735. Echocardiogram Results (most recent 11/11/2019): Left ventricular systolic function is normal w/EF 55-60%. Mild aortic valve sclerosis, Mild AR, Mild TR. Chest X Ray 02/10: Bilateral infiltrate and pleural effusion correlate for CHF. Chest X Ray 02/11: No gross heart failure. Chest X Ray 02/18: Moderate basilar pulmonary infiltrates. No heart failure. Chest X Ray 02/19: Pulmonary congestion and pulmonary infiltrates with pleural fluid and consistent with RDS or congestive heart failure. Treatment 02/10: IV fluid 500 mls @ 999 mls/hr, IV Azithromycin, IV Rocephin, IV Cardizem Drip Bolus, O2 4Lnc 02/11: IV Lasix 40 mg x1, IV Zosyn. O2 8Lnc 50% high flow, BiPAP <24 hrs. 02/13 IV Lasix 40 mg x1, O2 High flow 4-6Lnc 02/14 IV Lasix 20 mg x1, O2 3-5Lnc 02/19 Patient intubated on vent, IV Zosyn, IV Vanco, IV Norepinephrine In your professional opinion, can you please clarify the acuity and type of CHF if known? Heart Failure is Ruled Out Heart Failure is Ruled In, please specify if Present on Admission: Yes or No Systolic Heart Failure: o Acute o Chronic o Acute on Chronic Diastolic Heart Failure: o Acute o Chronic o Acute on Chronic Systolic & Diastolic Heart Failure: o Acute o Chronic o Acute on Chronic Heart Failure Unable to Determine Other, please specify (Last Revision: August 2017) Acute on chronic systolic heart failure MTDD
--- NOTE | 2020-02-20 12:15 | P.PCN ---
Date of Procedure: 02/20/20 Preoperative Diagnosis: Acute hypoxic respiratory failure Postoperative Diagnosis: Acute hypoxic respiratory failure Procedure(s) Performed: Central line insertion Anesthesia: local Surgeon: Liz Blanco Estimated Blood Loss (ml): 0 Pathology: none sent Condition: critical Disposition: ICU Operative Findings: Indication: Hemodynamic monitoring/Intravenous access. A time-out was completed verifying correct patient, procedure, site, positioning, and implant(s) or special equipment if applicable. The patient was placed in a dependent position appropriate for central line placement based on the vein to be cannulated. The patients left shoulder was prepped and draped in sterile fashion. 1% Lidocaine was used to anesthetize the surrounding skin area. A triple lumen 9F Cordis catheter was introduced into the left subclavian vein using Seldinger technique. The catheter was threaded smoothly over the guide wire and appropriate blood return was obtained. Each lumen of the catheter was evacuated of air and flushed with sterile saline. The catheter was then sutured in place to the skin and a sterile dressing applied. Perfusion to the extremity distal to the point of catheter insertion was checked and found to be adequate. The patient tolerated the procedure well and there were no complications.
--- NOTE | 2020-02-20 12:44 | P.PN ---
Subjective Progress Note Date: 02/20/20 This is a 64-year-old white male patient of Dr. Claude Deluna that was admitted through the emergency department on 02/11/2020 when he came in for evaluation of shortness of breath, hypoxemia. Patient has a known history of esophageal cancer status post chemotherapy and NG tube placement, has a known history of COPD and CHF. Patient was started on empiric antibiotics in the form of Zosyn, nebulized bronchodilators, and diuretics, did require high flow oxygen per Airvo, which was discontinued yesterday, patient is currently on 6 L of oxygen per high flow nasal cannula with a pulse ox of 93-95%, his tube feedings were held yesterday related to some leaking around the bolster, surgical services were consulted and Dr. Styles adjusted the bolster, and tube feedings were resumed today, with TwoCal HN currently at 10 ML per hour. Of note previously patient was receiving tube feedings and consuming some nausea fluids by mouth. He is currently strict nothing by mouth, and receiving all of his nutrition via his J-tube. He is sounding much less congested today, bronchospastic, breathing easier, more comfortably, he sitting up in the chair. His vital signs are stable, his been afebrile, hemodynamically stable, 0.9 normal saline infusing at a rate of 20 ML per hour, yesterday he received a dose of Lasix, and he produces 2.8 L and urine output, he is -1.4 L over last 24 hours, indwelling catheter is in place. On admission patient was in A. fib with RVR, he is currently in sinus mechanism, he is on oral amiodarone and Eliquis for anticoagulation, cardiology services are following. Today's chest x-ray has been reviewed, showing stable diffuse pleural parenchymal disease related to aspiration pneumonia. Today's labs have been reviewed, showing white blood cell, 10.7, hemoglobin of 12.8, sodium is 140, potassium is 3.4, the rest of electrolytes were within normal limits, BUN is 18 creatinine 0.58. All microbiology has shown no growth. He is on Zosyn for antibiotic coverage. The patient is seen today 02/16/2020 in follow-up in the intensive care unit. He is currently resting quite comfortably in bed. Awake and alert in no acute distress. Maintaining O2 saturations in the 90s on 3 L/m per nasal cannula. 0.9 normal saline at 20 ML's per hour. He is receiving nourishment via PEG tube with TwoCal HN at 30 MLS per hour with a goal of 40 ML's per hour. White count 10.0. Hemoglobin 12.0. Sodium 138. Potassium 4.2. Creatinine 0.61. Blood and wound and sputum cultures reveal no growth. He is currently on DuoNeb inhalations, Pulmicort inhalations, antibiotics in the form of Zosyn. The patient is seen today 02/17/2020 in follow-up in the intensive care unit. He is currently resting comfortably in bed. Awake and alert in no acute distress. He is maintaining good O2 saturations in the 90s on 3 L/m per nasal cannula. Chest x-ray reveals right basilar infiltrate with small bilateral pleural effusions. Stable compared to previous. 0.9 normal saline at 20 ML's per hour. Currently receiving TwoCal HN at 40 MLs per hour with a goal of 50 ML's per hour. Blood culture reveals no growth. Sputum culture reveals no growth. Abdomen reveals Cassie. White count 9.4. Hemoglobin 12.3. Sodium 142. Potassium 3.7. Creatinine 0.60. He remains on Zosyn. Anticoagulated with Eliquis. On 02/18/2020 and seeing the patient for a follow-up in the intensive care unit. The patient is having some difficulties with his J-tube. This was found to be clotted again and surgical consultation was again obtained in regards to this problem. In terms of his breathing, is breathing comfortably at 3 L of oxygen by nasal cannula with a pulse of 74%. He is on IV fluids with normal saline at rate of 20 mL an hour. He is in normal sinus rhythm. His chest x-ray still showing increased opacity in lung bases bilaterally and we opted to proceed with a CAT scan of the chest to characterized his abnormalities. The patient has no fever. The patient has no chills. The patient is taking some material orally for pleasure. I reviewed the CAT scan of the chest that was done this morning. The CAT scan showed small better pleural effusion. There is a limited consoli dation process in the left lower lobe. Some limited nodularity is also noted and this appears segment of the left lower lobe. The patient has postsurgical changes with previous esophagectomy and gastric pull. No evidence of any lymphadenopathy. No evidence of any cardiomegaly. 02/19/2020, the patient is resting comfortably in bed and oxidation is slightly improved and currently is on 2 L about 2 by nasal cannula. His current pulse ox is 92%. A CAT scan of the chest was obtained yesterday and showed no significant pleural effusion. There was a consolidative process in the left lower lobe unchanged compared to the previous examination. There was also a linear atelectasis in the right lower lobe. There is also nodularity identified in the right lower lobe. Addition the nodularity in this appears segment of the left lower lobe. The previously noted nodules in the left lower lobe are less conspicuous and there is small bilateral pleural effusions bilaterally. The patient is postop esophagectomy and gastric pull-through. He has no fever. No chills. The issues and a competition related to J-tube feeding has been dealt with and the patient's catheter has been flushed appropriately by the nursing staff and the patient is currently receiving enteral feeding vi the jejunostomy tube. The patient is also in atrial fibrillation. Anticoagulation will be resumed and the patient be started back on Eliquis for now. No respiratory distress. Awake and alert and following commands and answering questions. 02/20/2020, the patient's condition is obviously decompensated. Since yesterday afternoon, the patient developed progressive worsening shortness of breath and late at night, the patient went to respiratory failure requiring intubation and mechanical ventilation. Post intubation, the patient had a brief cardiopulmonary arrest where he became bradycardic and then went into cardiac arrest where he was resuscitated in the intensive care unit and there was return of spontaneous circulation. This morning, the patient is intubated on a mechanical ventilator. I saw him sedated on propofol at 50 g per KG per minute. He is an assist-control mode of ventilator at the rate of 28 with a tidal volume of 600 and FiO2 of 1% with a PEEP of 10. Ventilator adjustments was done earlier this morning and the patient was switched to ACC/smoking. Subsequent blood gases showed improvement and acid base status and the most recent blood gases showed a pH of 7.37 with a pCO2 of 26 and pO2 of 231. FiO2 was dropped down to 50%. The patient is significantly hypotensive and hemodynamically unstable. He was given a total of 2 L of IV fluid and norepinephrine infusion is being titrated to maintain a mean arterial pressure above 65. He is afebrile. White cell count is up to 21. Lactic acid level is at 2.8. Repeat chest x-ray showed some lower lobe pulmonary filtration. Note that the patient has a gastric pull related to his previous history of esophageal cancer. Nevertheless, the possibility of small better pleural effusion and bibasilar airspace disease in the lung bases cannot be completely ruled out. The patient also went into atrial fibrillation with rapid response. He was started on amiodarone drip for rate control and currently is running at 0.5 mg per minute. A triple lumen catheter was established today for IV access and hemodynamic instability. Note that post intubation, NG tube was inserted and the patient had a total of 700 mL of gastric output. The output was somewhat bloody. Nevertheless, there is no clear indication for a GI bleed. Hemoglobin was as high as 13.7 and dropped down to 10.3. There may be a component of mild upper GI bleeding. His INR is at 2 with a PT of 19.2. Anticoagulation was placed on hold for now. Vitamin K will be given. Objective - Vital Signs Vital signs: Vital Signs Temp 99.9 F H 02/20/20 08:00 Pulse 72 02/20/20 11:55 Resp 28 H 02/20/20 10:00 BP 102/66 02/20/20 10:00 Pulse Ox 94 L 02/20/20 10:00 Intake & Output 02/19/20 02/20/20 02/20/20 18:59 06:59 18:59 Intake Total 330 3208.374 2290 Output Total 795 1691 75 Balance -465 9865.238 2189 Weight 61.5 kg Intake: IV 288 255 1948 Sodium Chloride 0.9% 1, 120 240 40 000 ml @ 20 mls/hr IV . Q24H [facility] Rx#:[id number] Sodium Chloride 0.9% 1, 2000 000 ml @ 999 mls/hr IV . Q1H1M [facility] Rx#:[id number] Intake, IV Titration 2968.374 250 Amount Amiodarone 300 mg In 250 Dextrose 5% in Water 250 ml @ 0.5 MG/MIN 25 mls/hr IV .Q10H [facility] Rx#: [id number] Diltiazem 125 mg In 15.875 Sodium Chloride 0.9% 100 ml @ Per Protocol IV .Q0M [facility] Rx#:[id number] Norepinephrine 4 mg In 922.425 Sodium Chloride 0.9% 250 ml @ 0.05 MCG/KG/MIN 11. 716 mls/hr IV .[id number] [facility] Rx#:[id number] Sodium Chloride 0.9% 2, 2000 000 ml @ 999 mls/hr IV . Q2H1M [facility] Rx#:[id number] propofoL 1,000 mg In 30.074 Empty Bag 1 bag @ Titrate IV .Q0M [facility] Rx#: [id number] Tube Feeding 150 Other 60 Output: Gastric Drainage 700 Urine 795 290 75 Stool 1 Emesis 700 Other: Voiding Method Indwelling Catheter Indwelling Catheter # Bowel Movements 2 ABP, PAP, CO, CI - Last Documented Arterial Blood Pressure 88/52 - Exam GENERAL EXAM: Alert, very pleasant, frail-looking 64-year-old male patient, and the patient is sedated with propofol and the patient's calm and comfortable intubated on a mechanical ventilator. Orogastric and orotracheal tube are both in place. HEAD: Normocephalic/atraumatic. EYES: Normal reaction of pupils, equal size. Conjunctiva pink, sclera white. NOSE: Clear with pink turbinates. THROAT: No erythema or exudates. NECK: No masses, no JVD, no thyroid enlargement, no adenopathy. The patient has a left subclavian triple-lumen catheter in place. CHEST: No chest wall deformity. Symmetrical expansion. LUNGS: Equal air entry with scattered wheezes and rhonchi, improved CVS: The patient is tachycardic and there rate and rhythm is irregular consistent with atrial fibrillation with rapid ventricular response. and rhythm, normal S1 and S2, no gallops, no murmurs, no rubs ABDOMEN: Soft, nontender. No hepatosplenomegaly, normal bowel sounds, no guarding or rigidity. J tube is in place, with the tube feedings infusing, and the patient is tube feeds are currently on hold. EXTREMITIES: No clubbing, no edema, no cyanosis, 2+ pulses and upper and lower extremities. MUSCULOSKELETAL: Muscle strength and tone normal. SPINE: No scoliosis or deformity SKIN: No rashes CENTRAL NERVOUS SYSTEM: The patient is currently sedated on propofol - Labs CBC & Chem 7: 02/20/20 07:52 02/20/20 07:52 Labs: Abnormal Lab Results - Last 24 Hours (Table) 02/19/20 02/20/20 02/20/20 Range/Units 23:45 01:10 01:46 WBC (3.8-10.6) k/uL RBC (4.30-5.90) m/uL Hgb (13.0-17.5) gm/dL Hct (39.0-53.0) % MCHC (31.0-37.0) g/dL Neutrophils # (1.3-7.7) k/uL Lymphocytes # (1.0-4.8) k/uL PT (9.0-12.0) sec INR (<1.2) ABG pH 7.29 L (7.35-7.45) ABG pCO2 50 H (35-45) mmHg ABG pO2 61 L (83-108) mmHg ABG HCO3 20 L (21-25) mmol/L ABG Total CO2 26 H (19-24) mmol/L ABG O2 Saturation 89.6 L (94-97) % ABG Lactic Acid 2.8 H* (0.5-1.6) mmol/L Chloride (98-107) mmol/L Carbon Dioxide (22-30) mmol/L BUN (9-20) mg/dL Glucose (74-99) mg/dL POC Glucose (mg/dL) (75-99) mg/dL Plasma Lactic Acid Twin (0.7-2.0) mmol/L Calcium (8.4-10.2) mg/dL 02/20/20 02/20/20 02/20/20 Range/Units 01:58 02:00 02:00 WBC 20.6 H (3.8-10.6) k/uL RBC (4.30-5.90) m/uL Hgb 12.9 L (13.0-17.5) gm/dL Hct (39.0-53.0) % MCHC 30.6 L (31.0-37.0) g/dL Neutrophils # 19.5 H (1.3-7.7) k/uL Lymphocytes # 0.4 L (1.0-4.8) k/uL PT (9.0-12.0) sec INR (<1.2) ABG pH (7.35-7.45) ABG pCO2 (35-45) mmHg ABG pO2 (83-108) mmHg ABG HCO3 (21-25) mmol/L ABG Total CO2 (19-24) mmol/L ABG O2 Saturation (94-97) % ABG Lactic Acid (0.5-1.6) mmol/L Chloride 112 H (98-107) mmol/L Carbon Dioxide 19 L (22-30) mmol/L BUN 26 H (9-20) mg/dL Glucose 132 H (74-99) mg/dL POC Glucose (mg/dL) 133 H (75-99) mg/dL Plasma Lactic Acid Wtin (0.7-2.0) mmol/L Calcium 8.0 L (8.4-10.2) mg/dL 02/20/20 02/20/20 02/20/20 Range/Units 04:44 05:05 07:52 WBC (3.8-10.6) k/uL RBC (4.30-5.90) m/uL Hgb (13.0-17.5) gm/dL Hct (39.0-53.0) % MCHC (31.0-37.0) g/dL Neutrophils # (1.3-7.7) k/uL Lymphocytes # (1.0-4.8) k/uL PT 19.2 H (9.0-12.0) sec INR 2.0 H (<1.2) ABG pH (7.35-7.45) ABG pCO2 (35-45) mmHg ABG pO2 76 L (83-108) mmHg ABG HCO3 19 L (21-25) mmol/L ABG Total CO2 (19-24) mmol/L ABG O2 Saturation 93.9 L (94-97) % ABG Lactic Acid (0.5-1.6) mmol/L Chloride (98-107) mmol/L Carbon Dioxide (22-30) mmol/L BUN (9-20) mg/dL Glucose (74-99) mg/dL POC Glucose (mg/dL) (75-99) mg/dL Plasma Lactic Acid Twin 2.8 H* (0.7-2.0) mmol/L Calcium (8.4-10.2) mg/dL 02/20/20 02/20/2020 Range/Units 07:52 07:52 08:26 WBC 21.5 H (3.8-10.6) k/uL RBC 3.55 L (4.30-5.90) m/uL Hgb 10.3 L (13.0-17.5) gm/dL Hct 33.3 L (39.0-53.0) % MCHC (31.0-37.0) g/dL Neutrophils # (1.3-7.7) k/uL Lymphocytes # (1.0-4.8) k/uL PT (9.0-12.0) sec INR (<1.2) ABG pH (7.35-7.45) ABG pCO2 26 L (35-45) mmHg ABG pO2 231 H (83-108) mmHg ABG HCO3 15 L (21-25) mmol/L ABG Total CO2 16 L (19-24) mmol/L ABG O2 Saturation 99.8 H (94-97) % ABG Lactic Acid (0.5-1.6) mmol/L Chloride 119 H (98-107) mmol/L Carbon Dioxide 16 L (22-30) mmol/L BUN 29 H (9-20) mg/dL Glucose 100 H (74-99) mg/dL POC Glucose (mg/dL) (75-99) mg/dL Plasma Lactic Acid Twin (0.7-2.0) mmol/L Calcium 6.9 L (8.4-10.2) mg/dL Microbiology - Last 24 Hours (Table) 02/20/20 00:00 Sputum Culture - Preliminary Sputum Assessment and Plan Plan: 1 Acute hypoxemic respiratory failure , most likely secondary to aspiration pneumonia with bibasilar infiltrates, and the patient had to be intubated and placed on a mechanical ventilator. The patient currently is on a assist-control mode with the CPAP plus with a tidal volume of 600 and the rate of 20 and FiO2 of 50% with a PEEP of 10. There has been significant improvement and oxygenation postintubation. The patient however is hemodynamically stable and currently he is in shock requiring high doses of pressors and the patient also has developed an acute atrial fibrillation with rapid ventricular response. 2 shock, and the patient is profoundly hypotensive probably related to a component of intravascular volume depletion and septic shock. The patient is currently on pressors. The patient's CVP is at 10. The patient is receiving a total of 2 L of IV fluid in the pressors will be gradually weaned off. 3 atrial fibrillation with rapid ventricular response, currently on amiodarone drip for rate control at the rate of 0.5 mg per minute. Currently off anticoagulation 4 suspect upper GI bleed, currently nothing by mouth and the J-tube feeding has been placed on hold 5 History of esophageal cancer, status post gastric pull and the patient has gastroparesis and the patient is being fed through a J-tube. 6 History of recurrent aspiration 7 History of seizure disorder 8 History of brain aneurysm, and the patient had a [employer] aneurysm rupture 25 years ago an and comprehension and he neglectson the left side and has history of seizures 9 GERD/reflux 10 Sleep apnea syndrome, does not utilize a CPAP machine 11 previous history of a left heel wound, treated at the wound center 12 difficult mobility and the patient wheelchair Plan Continue ventilator support for now. IV fluids will be continued with normal saline at the rate of 100 mL an hour Continue norepinephrine infusion for blood pressure support Check a serum cortisol level, random Check echocardiogram Amiodarone drip for rate control as the patient is quite tachycardic at this point in time and the patient is having ectopies Restart IV Zosyn and add vancomycin Hold anticoagulation as the patient could be potentially having a upper GI source of bleeding. Hemoglobin is up and output from the NG tube is quite bloody Hold nutritional support via a J-tube Repeat blood work and electrolytes Echocardiogram to assess LV function Condition is critical and the this evaluation was on a more than 30 minutes Time with Patient: Greater than 30
[2020-02-20] MEDS ORDERED: PHYTONADIONE 10 MG in SODIUM CHLORIDE 0.9% 50 ML IVPB STA (12:45)
--- NOTE | 2020-02-20 14:33 | P.PN ---
Subjective Acute hypoxic respiratory failure probably secondary to pneumonia 64-year-old the male admitted for pneumonia bilateral, predominantly in the right lower lobes. There is a concern about aspiration patient has been vomiting. Patient does take a modified diet by mouth at home does have a PEG tube in place. Patient the antibiotics were changed to Zosyn which is appropriate. Patient went into respiratory distress on some requirements have gone up because of which patient was transferred to ICU later in the day patient started having A. fib with rapid ventricular rate because of which patient was started on Cardizem and cardiology was consulted. I'm also consulting speech therapy because of his swallowing issues to assess if her appropriate for the patient to be continued on modified diet by mouth. 02/13/2020 Patient clinically looks better patient is being continued on Zosyn continued on IV fluids. Patient will undergo swallow evaluation today speech therapy was consulted. Patient remains nothing by mouth patient is being started on Eliquis for the atrial fibrillation anticoagulation patient is presently on oral amiodarone heart rate is better controlled today. On 02/14/2020 Patient is currently sitting in the chair comfortably. Still having baseline shortness of breath and bibasilar crackles on examination. Currently on high flow oxygen. Chest x-ray showed findings are not significantly changed. Basilar effusions an d associated atelectasis versus pulmonary edema. Patient is being continued on IV antibiotic without Zosyn for possible aspiration and also a dose of Lasix IV was given. Patient has been continued on telemetry monitoring and heart rate is better controlled. Current medications reviewed. 02/15/2020 Patient is currently sitting in the chair comfortably. Saturating around 95% on 6 L oxygen via nasal cannula. Patient was started back on tube feedings today. Patient otherwise denied any complaints of chest pain worsening shortness breath. No nausea vomiting. Denied any abdominal pain. Currently maintaining sinus rhythm. Continued on Eliquis and amiodarone and cardiology is on board. Chest x-ray showed findings are not significantly changed. Basilar effusions and associated atelectasis versus pulmonary edema/pneumonia. Patient is on antibiotics in the form of Zosyn. Laboratory data showed WBC 10.7, hemoglobin 12.8 and platelets of 224 BUN is 18 and creatinine 0.58 Pulmonary and cardiology and general surgery is on board. Current medications reviewed On 02/16/2020 Patient is currently sitting in chair comfortably. Pulse ox about 90s at 3 L via nasal cannula. No fever no chills. Patient is being continued IV antibiotics.tube feedings were started and advance as tolerated. Blood and sputum cultures show no growth. Wound cultures from the abdomen showed Cassie albicans. Continued on dressing changes. No surgical intervention recommended. General surgery has seen the patient. Laboratory data showed WBC 10.0 hemoglobin 12.0 and platelets 253 BUN 16 and creatinine 0.61 patient is being transferred to general medical floor. 02/17/2020 Patient is currently lying in the bed comfortably. Still requiring oxygen at 3 L via nasal cannula. Awake alert oriented but lethargic. No fever no chills. Patient is being continued on antibiotics now for Zosyn. Chest x-ray showed right basilar infiltrates with small bilateral pleural effusions stable from comparison. Patient is tolerating tube feedings at 50 cc/h PEG tube site wound cultures showed Cassie albicans. Patient is being continued on duo nebs and Pulmicort. Heart rate is controlled. Anticoagulation with Eliquis and also on amiodarone and metoprolol 3 times daily. Cardiology and pulmonary is following. Laboratory data showed potassium 3.7, BUN 16 and creatinine 0.6 and hemoglobin 12.3 WBC 9.4 Discussed with his at bedside in detail. 02/18/2020 Patient had a repeat CAT scan which did show the infiltrates that were present before no significant worsening of these infiltrates. Patient cannot take an ything via by mouth but will continue his J-tube feedings. 02/19/2020 Patient was doing well earlier today morning and subsequently went into respiratory failure again presently requiring BiPAP. Repeat chest x-ray did not show any new infiltrate. 02/20/2020 Patient underwent respiratory failure patient is presently intubated patient the is on pressor support as well. Patient coded with asystole for few minutes and was successfully resuscitated after that patient does have pupillary reflexes patient did receive a paralytic agents because of which unable to assess the cough or gag reflex at this time. Review of systems: Unable to obtain due to his clinical condition All inpatient medications were reviewed and appropriate changes in these medications as dictated in the interval history and assessment and plan. Objective - Vital Signs Vital signs: Vital Signs Temp 98.3 F 02/20/20 12:00 Pulse 91 02/20/20 12:00 Resp 28 H 02/20/20 12:00 BP 101/74 10/07/20 12:00 Pulse Ox 97 02/20/20 12:00 Intake & Output 02/19/20 02/20/20 02/20/20 18:59 06:59 18:59 Intake Total 330 3208.374 2330 Output Total 795 1691 145 Balance -465 5271.068 4951 Weight 61.5 kg Intake: IV 105 324 0811 Sodium Chloride 0.9% 1, 120 240 80 000 ml @ 20 mls/hr IV . Q24H [facility] Rx#:[id number] Sodium Chloride 0.9% 1, 2000 000 ml @ 999 mls/hr IV . Q1H1M [facility] Rx#:[id number] Intake, IV Titration 2968.374 250 Amount Amiodarone 300 mg In 250 Dextrose 5% in Water 250 ml @ 0.5 MG/MIN 25 mls/hr IV .Q10H [facility] Rx#: [id number] Diltiazem 125 mg In 15.875 Sodium Chloride 0.9% 100 ml @ Per Protocol IV .Q0M [facility] Rx#:[id number] Norepinephrine 4 mg In 922.425 Sodium Chloride 0.9% 250 ml @ 0.05 MCG/KG/MIN 11. 716 mls/hr IV .[id number] [facility] Rx#:[id number] Sodium Chloride 0.9% 2, 2000 000 ml @ 999 mls/hr IV . Q2H1M [facility] Rx#:[id number] propofoL 1,000 mg In 30.074 Empty Bag 1 bag @ Titrate IV .Q0M [facility] Rx#: [id number] Tube Feeding 150 Other 60 Output: Gastric Drainage 700 Urine 795 290 145 Stool 1 Emesis 700 Other: Voiding Method Indwelling Catheter Indwelling Catheter # Bowel Movements 2 ABP, PAP, CO, CI - Last Documented Arterial Blood Pressure 62/58 - Exam PHYSICAL EXAMINATION: GENERAL: Patient is intubated sedated HEENT: Pupils are round and equally reacting to light. EOMI. No scleral icterus. No conjunctival pallor. Normocephalic, atraumatic. No pharyngeal erythema. No thyromegaly. CARDIOVASCULAR: S1 and S2 present. No murmurs, rubs, or gallops. PULMONARY: Diffuse bilateral rhonchi and crackles bibasilar ABDOMEN: Soft, nontender, nondistended, normoactive bowel sounds. No palpable organomegaly. MUSCULOSKELETAL: No joint swelling or deformity. EXTREMITIES: No cyanosis, clubbing, or pedal edema. NEUROLOGICAL: Patient is intubated sedated SKIN: No rashes. - Labs CBC & Chem 7: 02/20/20 07:52 02/20/20 07:52 Labs: Abnormal Lab Results - Last 24 Hours (Table) 02/19/20 02/20/20 02/20/20 Range/Units 23:45 01:10 01:46 WBC (3.8-10.6) k/uL RBC (4.30-5.90) m/uL Hgb (13.0-17.5) gm/dL Hct (39.0-53.0) % MCHC (31.0-37.0) g/dL Neutrophils # (1.3-7.7) k/uL Lymphocytes # (1.0-4.8) k/uL PT (9.0-12.0) sec INR (<1.2) ABG pH 7.29 L (7.35-7.45) ABG pCO2 50 H (35-45) mmHg ABG pO2 61 L (83-108) mmHg ABG HCO3 20 L (21-25) mmol/L ABG Total CO2 26 H (19-24) mmol/L ABG O2 Saturation 89.6 L (94-97) % ABG Lactic Acid 2.8 H* (0.5-1.6) mmol/L Chloride (98-107) mmol/L Carbon Dioxide (22-30) mmol/L BUN (9-20) mg/dL Glucose (74-99) mg/dL POC Glucose (mg/dL) (75-99) mg/dL Plasma Lactic Acid Twin (0.7-2.0) mmol/L Calcium (8.4-10.2) mg/dL 02/20/20 02/20/20 02/20/20 Range/Units 01:58 02:00 02:00 WBC 20.6 H (3.8-10.6) k/uL RBC (4.30-5.90) m/uL Hgb 12.9 L (13.0-17.5) gm/dL Hct (39.0-53.0) % MCHC 30.6 L (31.0-37.0) g/dL Neutrophils # 19.5 H (1.3-7.7) k/uL Lymphocytes # 0.4 L (1.0-4.8) k/uL PT (9.0-12.0) sec INR (<1.2) ABG pH (7.35-7.45) ABG pCO2 (35-45) mmHg ABG pO2 (83-108) mmHg ABG HCO3 (21-25) mmol/L ABG Total CO2 (19-24) mmol/L ABG O2 Saturation (94-97) % ABG Lactic Acid (0.5-1.6) mmol/L Chloride 112 H (98-107) mmol/L Carbon Dioxide 19 L (22-30) mmol/L BUN 26 H (9-20) mg/dL Glucose 132 H (74-99) mg/dL POC Glucose (mg/dL) 133 H (75-99) mg/dL Plasma Lactic Acid Twin (0.7-2.0) mmol/L Calcium 8.0 L (8.4-10.2) mg/dL 02/20/20 02/20/20 02/20/20 Range/Units 04:44 05:05 07:52 WBC (3.8-10.6) k/uL RBC (4.30-5.90) m/uL Hgb (13.0-17.5) gm/dL Hct (39.0-53.0) % MCHC (31.0-37.0) g/dL Neutrophils # (1.3-7.7) k/uL Lymphocytes # (1.0-4.8) k/uL PT 19.2 H (9.0-12.0) sec INR 2.0 H (<1.2) ABG pH (7.35-7.45) ABG pCO2 (35-45) mmHg ABG pO2 76 L (83-108) mmHg ABG HCO3 19 L (21-25) mmol/L ABG Total CO2 (19-24) mmol/L ABG O2 Saturation 93.9 L (94-97) % ABG Lactic Acid (0.5-1.6) mmol/L Chloride (98-107) mmol/L Carbon Dioxide (22-30) mmol/L BUN (9-20) mg/dL Glucose (74-99) mg/dL POC Glucose (mg/dL) (75-99) mg/dL Plasma Lactic Acid Twin 2.8 H* (0.7-2.0) mmol/L Calcium (8.4-10.2) mg/dL 02/20/20 02/20/20 02/20/20 Range/Units 07:52 07:52 08:26 WBC 21.5 H (3.8-10.6) k/uL RBC 3.55 L (4.30-5.90) m/uL Hgb 10.3 L (13.0-17.5) gm/dL Hct 33.3 L (39.0-53.0) % MCHC (31.0-37.0) g/dL Neutrophils # (1.3-7.7) k/uL Lymphocytes # (1.0-4.8) k/uL PT (9.0-12.0) sec INR (<1.2) ABG pH (7.35-7.45) ABG pCO2 26 L (35-45) mmHg ABG pO2 231 H (83-108) mmHg ABG HCO3 15 L (21-25) mmol/L ABG Total CO2 16 L (19-24) mmol/L ABG O2 Saturation 99.8 H (94-97) % ABG Lactic Acid (0.5-1.6) mmol/L Chloride 119 H (98-107) mmol/L Carbon Dioxide 16 L (22-30) mmol/L BUN 29 H (9-20) mg/dL Glucose 100 H (74-99) mg/dL POC Glucose (mg/dL) (75-99) mg/dL Plasma Lactic Acid Twin (0.7-2.0) mmol/L Calcium 6.9 L (8.4-10.2) mg/dL Microbiology - Last 24 Hours (Table) 02/20/20 00:00 Sputum Culture - Preliminary Sputum Assessment and Plan Plan: -Acute hypoxic respiratory failure secondary to pneumonia predominantly in the right. patient does have pleural effusions on both sides. Patient is on Zosyn at this time there is a concern for aspiration. Patient is presently intubated on assist-control ventilation please referred to pulmonology documentation for went settings. -Septic shock: Patient is presently on norepinephrine which will be continued patient's CVP was 10 -Paraxysmal Atrial fibrillation with rapid ventricular rate Patient is being switched to Eliquis. Patient is presently on amiodarone , patient heart rate went up again today patient is presently on bridging Lovenox along with the Coumadin as Eliquis is too expensive. -gastroesophageal reflux disease with the possibility of GI bleed J-tube feedings are on hold -Hypertension -benign prostatic hypertrophy -History of renal cancer and esophageal cancer with dysphagia and a J-tube . -History of cerebral aneurysm. -KAROL His overall prognosis is extremely poor
[2020-02-20] MEDS: ACETAMINOPHEN TAB 325 MG TAB PO PRN (15:03)
[2020-02-20] MEDS: METOPROLOL TARTRATE 5 MG/5 ML VIAL IVP PRN ×2 (17:20→22:20)
[2020-02-20] MEDS ORDERED: WARFARIN 3 MG TAB PO ONE (18:00)
[2020-02-20 18:23] LABS: Glucose,Whole Blood 137 mg/dL (75-99)
--- NOTE | 2020-02-20 18:32 | ECHOF ---
Referral Reason:s p asystole code MEASUREMENTS -------- HEIGHT: 152.4 cm WEIGHT: 61.2 kg BP: IVSd: 1.1 cm (0.6 - 1.1) LVIDd: 2.6 cm (3.9 - 5.3) LVPWd: 1.5 cm (0.6 - 1.1) IVSs: 1.4 cm LVIDs: 2.5 cm LVPWs: 0.7 cm RAP: 5.00 mmHg RVSP: 33.13 mmHg FINDINGS -------- Undetermined rhythm. This was a technically adequate study. The left ventricular size is normal. Left ventricular wall thickness is normal. Overall left vent ricular systolic function is mild-moderately impaired with, an EF between 40 - 45 %. The right ventricle is normal in size. The left atrial size is normal. The right atrial size is normal. There is mild aortic regurgitation. Mild mitral regurgitation is present. Mild tricuspid regurgitation present. Right ventricular systolic pressure is normal at < 35 mmHg. Trace/mild (physiologic) pulmonic regurgitation. There is no pericardial effusion. CONCLUSIONS -------- 1. The left ventricular size is normal. 2. Left ventricular wall thickness is normal. 3. Overall left ventricular systolic function is mild-moderately impaired with, an EF between 40 - 45 %. 4. The right ventricle is normal in size. 5. The left atrial size is normal. 6. The right atrial size is normal. 7. There is mild aortic regurgitation. 8. Mild mitral regurgitation is present. 9. Mild tricuspid regurgitation present. 10. Right ventricular systolic pressure is normal at < 35 mmHg. 11. Trace/mild (physiologic) pulmonic regurgitation. 12. There is no pericardial effusion. [employer]: Lucille Gardiner RDCS
[2020-02-20] MEDS: VANCOMYCIN 1,000 MG in SODIUM CHLORIDE 0.9% 250 ML IVPB SCH (21:44)
[2020-02-20 23:52] LABS: Glucose,Whole Blood 127 mg/dL (75-99)
[2020-02-21] MEDS: ACETAMINOPHEN TAB 325 MG TAB PO PRN
[2020-02-21] MEDS: METOCLOPRAMIDE 5 MG/ML 2 ML VIAL IVP SCH ×5 (02:01→18:36)
[2020-02-21] MEDS: SODIUM CHLORIDE 0.9% 1,000 ML IV SCH ×3 (02:02→19:03)
[2020-02-21] MEDS: PIPERACILLIN-TAZOBACTAM 3.375 GM in SODIUM CHLORIDE 0.9% 100 ML IVPB SCH ×3 (02:03→16:47)
[2020-02-21] MEDS ORDERED: DILTIAZEM 5 MG/ML 5 ML VIAL IVP STA (02:42)
[2020-02-21 04:49] LABS: HCT 43.5 % (39.0-53.0); Hypochromasia Marked; MCH 27.8 pg (25.0-35.0); MCHC 30.5 g/dL (31.0-37.0); MCV 91.2 fL (80.0-100.0); Mean Platelet Volume 8.3; Platelet Count 380 k/uL (150-450); RBC 4.77 m/uL (4.30-5.90); RDW 14.4 % (11.5-15.5); WBC 31.9 k/uL (3.8-10.6)
[2020-02-21 04:59] LABS: Calcium 7.4 mg/dL (8.4-10.2); Potassium 4.9 mmol/L (3.5-5.1)
[2020-02-21 05:06] LABS: HGB 13.3 gm/dL (13.0-17.5); INR 1.6 (<1.2); Prothrombin Time 16.1 sec (9.0-12.0)
[2020-02-21 05:12] LABS: ABG Base Excess -10.3 mmol/L; ABG HCO3 15 mmol/L (21-25); ABG Oxygen Saturation 98.4 % (94-97); ABG PCO2 27 mmHg (35-45); ABG PH 7.36 (7.35-7.45); ABG PO2 121 mmHg (83-108); ABG TCO2 16 mmol/L (19-24); Allen Test Performed? Yes
[2020-02-21 05:24] LABS: Band Neutrophils % 1 %; Lymphocytes # (M) 1.91 k/uL (1.0-4.8); Monocytes # (M) 0.64 k/uL (0-1.0); Neutrophils % (M) 92 %; Nucleated Red Blood Cells 0 /100 WBC (0-0); Total Cells Counted 200
[2020-02-21 05:25] LABS: Large Platelets Present
[2020-02-21 05:50] LABS: Glucose,Whole Blood 139 mg/dL (75-99)
[2020-02-21] MEDS: IPRATROPIUM-ALBUTEROL 3 ML NEB INHALATION SCH ×4 (07:24→19:12)
[2020-02-21] MEDS: VANCOMYCIN 1,000 MG in SODIUM CHLORIDE 0.9% 250 ML IVPB SCH (08:00)
[2020-02-21] MEDS ORDERED: SODIUM BICARB 8.4% 50 ML SYR (1 MEQ/ML) IV STA (08:34)
[2020-02-21] MEDS ORDERED: DEXTROSE 5% IN WATER 100 ML with AMIODARONE 150 MG IV ONE (08:35)
[2020-02-21] MEDS: CHLORHEXIDINE GLUCONATE 15 ML CUP MUCOUS MEM SCH ×2 (08:48→22:12)
[2020-02-21] MEDS: AMIODARONE 300 MG in DEXTROSE 5% IN WATER 250 ML IV SCH ×4 (08:51→17:02)
[2020-02-21] MEDS: NOREPINEPHRINE 32 MG in SODIUM CHLORIDE 0.9% 218 ML IV SCH (08:52)
[2020-02-21] MEDS: METOPROLOL TARTRATE 5 MG/5 ML VIAL IVP SCH ×3 (08:52→17:52)
[2020-02-21] MEDS ORDERED: HEPARIN SODIUM,PORCINE 5,000 UNIT/ML 1 ML VIAL IV ONE (09:14)
[2020-02-21] MEDS: DEXTROSE 5% IN WATER 1,000 ML with SODIUM BICARB (1 MEQ/ML) 150 ML IV SCH (09:44)
[2020-02-21] MEDS: PANTOPRAZOLE 40 MG/10 ML VIAL IVP SCH (09:44)
[2020-02-21] MEDS: HEPARIN SOD,PORK IN 0.45% NACL 25,000 UNIT in 0.45% NACL 1 250ML.BAG IV SCH (09:45)
[2020-02-21] MEDS: VANCOMYCIN 1,250 MG in SODIUM CHLORIDE 0.9% 250 ML IVPB SCH ×2 (09:46→22:12)
--- NOTE | 2020-02-21 10:02 | XR ---
EXAMINATION TYPE: XR chest 1V portable DATE OF EXAM: 02/21/2020 CLINICAL HISTORY: Tube placement TECHNIQUE: Portable semiupright view of the chest COMPARISON: 02/20/2020 chest radiograph FINDINGS: Endotracheal tube distal tip midway between the clavicles and javan. Left subclavian cent ral venous catheter, enteric tube, and right-sided ventriculoperitoneal shunt with unchanged radiogra phic appearance. The cardiomediastinal silhouette is within normal limits for size. Redemonstrated bi lateral pleural effusions and bibasilar airspace opacities. No pneumothorax, although there is occlus ion of the bilateral lung apices. IMPRESSION: 1. Unchanged radiographic appearance of tubes and lines. 2. Bilateral pleural effusions and bibasilar airspace opacities not significantly changed.
[2020-02-21] MEDS: DILTIAZEM 125 MG in SODIUM CHLORIDE 0.9% 100 ML IV SCH ×2 (10:30→19:04)
--- NOTE | 2020-02-21 11:03 | P.PN ---
Subjective This is a pleasant 64-year-old male past medical history significant for paroxysmal atrial fibrillation on long-term anticoagulation, esophageal cancer with J-tube in place, hypertension and brain aneurysm in the past. He follows in the office with Dr. Claros. He currently on mechanical ventilation. Unfortunately his heart rates continue to be rapid between 150 and 160. He continues to have elevated heart rates with tachy-myriam syndrome. Dr. Blanco initiated amiodarone infusion last night and we started cardizem infusion at 0245. Otherwise he is also on IV lopressor and norepinephrine. His coumadin was held last night and vitamin K administered per television technician for noted blood in the OG tube with total of 700 cc of output. He is breathing comfortably on IV sedation. Blood pressure 113/74 with heart rate fluctuating between 60 and 160. Laboratory data reviewed, WBC 31.9, hemoglobin 13.3, platelets 380, INR 1.6, pH 7.36, pCO2 27, pO2 121, bicarb 15, sodium 141, potassium 4.9, creatinine 1.23 and magnesium 2.1. Chest xray today reveals bilateral pleural effusion not significantly changed from previous. Repeat echo s/p cardiac arrest reveals EF 40-45%, ild MR and mild TR. GENERAL: Comfortable in bed on mechanical ventilation. NECK: Supple without JVD or thyromegaly. LUNGS: Respiration equal and unlabored. Diminished bilaterally. HEART: Irregular rate and rhythm without murmurs, rubs or gallops. S1 and S2 heard. EXTREMITIES: Normal range of motion, diffuse edema noted in the left hand, nonpitting. No clubbing or cyanosis. Peripheral pulses intact. ASSESSMENT Paroxysmal atrial fibrillation on Eliquis for anticoagulation currently maintaining sinus mechanism Acute hypoxic respiratory failure requiring mechanical ventilation Asystole arrest Aspiration pneumonia Lactic acidosis Leukocytosis Acute systolic heart failure s/p cardiac arrest History of esophageal cancer status post J-tube placement Hypertension History of brain aneurysm with ALIGNER shunt PLAN Given the sub-therapeutic INR we will initiate heparin infusion to bridge for therapeutic INR of 2-3 and consider CATRINA/cardioversion if his rates continue to be rapid throughout the day despite the current medication regimen. Discussed the plan with Dr. Blanco. Nurse Practitioner note has been reviewed, I agree with a documented findings and plan of care. Patient was seen and examined. Objective - Vital Signs Vital signs: Vital Signs Temp 102.4 F H 02/21/20 04:00 Pulse 115 H 10/08/20 07:36 Resp 28 H 02/21/20 07:00 BP 102/74 02/21/20 07:00 Pulse Ox 97 02/21/20 07:00 Intake & Output 02/20/20 02/21/20 02/21/20 18:59 06:59 18:59 Intake Total 3100.480 1606.529 491.539 Output Total 325 615 30 Balance 2775.480 991.529 461.539 Weight 66 kg Intake: IV 2680 1200 100 Sodium Chloride 0.9% 1, 680 1200 100 000 ml @ 100 mls/hr IV . Q10H [facility] Rx#:[id number] Sodium Chloride 0.9% 1, 2000 000 ml @ 999 mls/hr IV . Q1H1M [facility] Rx#:[id number] Intake, IV Titration 330.480 406.529 391.539 Amount Amiodarone 300 mg In 250 Dextrose 5% in Water 250 ml @ 0.5 MG/MIN 25 mls/hr IV .Q10H [facility] Rx#: [id number] Amiodarone 300 mg In 250 Dextrose 5% in Water 250 ml @ 0.5 MG/MIN 25 mls/hr IV .Q10H [facility] Rx#: [id number] Norepinephrine 32 mg In 66.151 141.539 Sodium Chloride 0.9% 218 ml @ 0.05 MCG/KG/MIN 1. 441 mls/hr IV .Q24H [facility] Rx#:[id number] Piperacillin-Tazobactam 3 100 .375 gm In Sodium Chloride 0.9% 100 ml @ 25 mls/hr IVPB Q8HR [facility] Rx# :[id number] Vancomycin 1,250 mg In 250 Sodium Chloride 0.9% 250 ml @ 125 mls/hr IVPB ONCE [facility] Rx#:[id number] propofoL 1,000 mg In 14.329 56.529 Empty Bag 1 bag @ Titrate IV .Q0M [facility] Rx#: [id number] Oral 90 Output: Urine 325 415 30 Emesis 200 Other: Voiding Method Indwelling Catheter Indwelling Catheter ABP, PAP, CO, CI - Last Documented Arterial Blood Pressure 113/74 - Labs CBC & Chem 7: 02/21/20 04:28 02/21/20 04:28 Labs: Abnormal Lab Results - Last 24 Hours (Table) 02/20/20 02/20/20 02/21/20 Range/Units 18:22 23:47 04:28 WBC (3.8-10.6) k/uL MCHC (31.0-37.0) g/dL Neutrophils # (Manual) (1.3-7.7) k/uL PT 16.1 H (9.0-12.0) sec INR 1.6 H (<1.2) ABG pCO2 (35-45) mmHg ABG pO2 (83-108) mmHg ABG HCO3 (21-25) mmol/L ABG Total CO2 (19-24) mmol/L ABG O2 Saturation (94-97) % Chloride (98-107) mmol/L Carbon Dioxide (22-30) mmol/L BUN (9-20) mg/dL Glucose (74-99) mg/dL POC Glucose (mg/dL) 137 H 127 H (75-99) mg/dL Calcium (8.4-10.2) mg/dL 02/21/20 02/21/20 02/21/20 Range/Units 04:28 04:28 05:08 WBC 31.9 H (3.8-10.6) k/uL MCHC 30.5 L (31.0-37.0) g/dL Neutrophils # (Manual) 29.60 H (1.3-7.7) k/uL PT (9.0-12.0) sec INR (<1.2) ABG pCO2 27 L (35-45) mmHg ABG pO2 121 H (83-108) mmHg ABG HCO3 15 L (21-25) mmol/L ABG Total CO2 16 L (19-24) mmol/L ABG O2 Saturation 98.4 H (94-97) % Chloride 117 H (98-107) mmol/L Carbon Dioxide 16 L (22-30) mmol/L BUN 41 H (9-20) mg/dL Glucose 155 H (74-99) mg/dL POC Glucose (mg/dL) (75-99) mg/dL Calcium 7.4 L (8.4-10.2) mg/dL 02/21/20 Range/Units 05:48 WBC (3.8-10.6) k/uL MCHC (31.0-37.0) g/dL Neutrophils # (Manual) (1.3-7.7) k/uL PT (9.0-12.0) sec INR (<1.2) ABG pCO2 (35-45) mmHg ABG pO2 (83-108) mmHg ABG HCO3 (21-25) mmol/L ABG Total CO2 (19-24) mmol/L ABG O2 Saturation (94-97) % Chloride (98-107) mmol/L Carbon Dioxide (22-30) mmol/L BUN (9-20) mg/dL Glucose (74-99) mg/dL POC Glucose (mg/dL) 139 H (75-99) mg/dL Calcium (8.4-10.2) mg/dL Microbiology - Last 24 Hours (Table) 02/20/20 00:00 Gram Stain - Preliminary Sputum Sputum Culture - Preliminary 02/19/20 16:59 Blood Culture - Preliminary Blood No Growth after 24 hours
[2020-02-21 12:05] LABS: Glucose,Whole Blood 154 mg/dL (75-99)
--- NOTE | 2020-02-21 13:05 | P.PN ---
Subjective Progress Note Date: 02/21/20 This is a 64-year-old white male patient of Dr. Claude Deluna that was admitted through the emergency department on 02/11/2020 when he came in for evaluation of shortness of breath, hypoxemia. Patient has a known history of esophageal cancer status post chemotherapy and NG tube placement, has a known history of COPD and CHF. Patient was started on empiric antibiotics in the form of Zosyn, nebulized bronchodilators, and diuretics, did require high flow oxygen per Airvo, which was discontinued yesterday, patient is currently on 6 L of oxygen per high flow nasal cannula with a pulse ox of 93-95%, his tube feedings were held yesterday related to some leaking around the bolster, surgical services were consulted and Dr. Styles adjusted the bolster, and tube feedings were resumed today, with TwoCal HN currently at 10 ML per hour. Of note previously patient was receiving tube feedings and consuming some nausea fluids by mouth. He is currently strict nothing by mouth, and receiving all of his nutrition via his J-tube. He is sounding much less congested today, bronchospastic, breathing easier, more comfortably, he sitting up in the chair. His vital signs are stable, his been afebrile, hemodynamically stable, 0.9 normal saline infusing at a rate of 20 ML per hour, yesterday he received a dose of Lasix, and he produces 2.8 L and urine output, he is -1.4 L over last 24 hours, indwelling catheter is in place. On admission patient was in A. fib with RVR, he is currently in sinus mechanism, he is on oral amiodarone and Eliquis for anticoagulation, cardiology services are following. Today's chest x-ray has been reviewed, showing stable diffuse pleural parenchymal disease related to aspiration pneumonia. Today's labs have been reviewed, showing white blood cell, 10.7, hemoglobin of 12.8, sodium is 140, potassium is 3.4, the rest of electrolytes were within normal limits, BUN is 18 creatinine 0.58. All microbiology has shown no growth. He is on Zosyn for antibiotic coverage. The patient is seen today 02/16/2020 in follow-up in the intensive care unit. He is currently resting quite comfortably in bed. Awake and alert in no acute distress. Maintaining O2 saturations in the 90s on 3 L/m per nasal cannula. 0.9 normal saline at 20 ML's per hour. He is receiving nourishment via PEG tube with TwoCal HN at 30 MLS per hour with a goal of 40 ML's per hour. White count 10.0. Hemoglobin 12.0. Sodium 138. Potassium 4.2. Creatinine 0.61. Blood and wound and sputum cultures reveal no growth. He is currently on DuoNeb inhalations, Pulmicort inhalations, antibiotics in the form of Zosyn. The patient is seen today 02/17/2020 in follow-up in the intensive care unit. He is currently resting comfortably in bed. Awake and alert in no acute distress. He is maintaining good O2 saturations in the 90s on 3 L/m per nasal cannula. Chest x-ray reveals right basilar infiltrate with small bilateral pleural effusions. Stable compared to previous. 0.9 normal saline at 20 ML's per hour. Currently receiving TwoCal HN at 40 MLs per hour with a goal of 50 ML's per hour. Blood culture reveals no growth. Sputum culture reveals no growth. Abdomen reveals Cassie. White count 9.4. Hemoglobin 12.3. Sodium 142. Potassium 3.7. Creatinine 0.60. He remains on Zosyn. Anticoagulated with Eliquis. On 02/18/2020 and seeing the patient for a follow-up in the intensive care unit. The patient is having some difficulties with his J-tube. This was found to be clotted again and surgical consultation was again obtained in regards to this problem. In terms of his breathing, is breathing comfortably at 3 L of oxygen by nasal cannula with a pulse of 74%. He is on IV fluids with normal saline at rate of 20 mL an hour. He is in normal sinus rhythm. His chest x-ray still showing increased opacity in lung bases bilaterally and we opted to proceed with a CAT scan of the chest to characterized his abnormalities. The patient has no fever. The patient has no chills. The patient is taking some material orally for pleasure. I reviewed the CAT scan of the chest that was done this morning. The CAT scan showed small better pleural effusion. There is a limited consoli dation process in the left lower lobe. Some limited nodularity is also noted and this appears segment of the left lower lobe. The patient has postsurgical changes with previous esophagectomy and gastric pull. No evidence of any lymphadenopathy. No evidence of any cardiomegaly. 02/19/2020, the patient is resting comfortably in bed and oxidation is slightly improved and currently is on 2 L about 2 by nasal cannula. His current pulse ox is 92%. A CAT scan of the chest was obtained yesterday and showed no significant pleural effusion. There was a consolidative process in the left lower lobe unchanged compared to the previous examination. There was also a linear atelectasis in the right lower lobe. There is also nodularity identified in the right lower lobe. Addition the nodularity in this appears segment of the left lower lobe. The previously noted nodules in the left lower lobe are less conspicuous and there is small bilateral pleural effusions bilaterally. The patient is postop esophagectomy and gastric pull-through. He has no fever. No chills. The issues and a competition related to J-tube feeding has been dealt with and the patient's catheter has been flushed appropriately by the nursing staff and the patient is currently receiving enteral feeding vi the jejunostomy tube. The patient is also in atrial fibrillation. Anticoagulation will be resumed and the patient be started back on Eliquis for now. No respiratory distress. Awake and alert and following commands and answering questions. 02/20/2020, the patient's condition is obviously decompensated. Since yesterday afternoon, the patient developed progressive worsening shortness of breath and late at night, the patient went to respiratory failure requiring intubation and mechanical ventilation. Post intubation, the patient had a brief cardiopulmonary arrest where he became bradycardic and then went into cardiac arrest where he was resuscitated in the intensive care unit and there was return of spontaneous circulation. This morning, the patient is intubated on a mechanical ventilator. I saw him sedated on propofol at 50 g per KG per minute. He is an assist-control mode of ventilator at the rate of 28 with a tidal volume of 600 and FiO2 of 1% with a PEEP of 10. Ventilator adjustments was done earlier this morning and the patient was switched to ACC/smoking. Subsequent blood gases showed improvement and acid base status and the most recent blood gases showed a pH of 7.37 with a pCO2 of 26 and pO2 of 231. FiO2 was dropped down to 50%. The patient is significantly hypotensive and hemodynamically unstable. He was given a total of 2 L of IV fluid and norepinephrine infusion is being titrated to maintain a mean arterial pressure above 65. He is afebrile. White cell count is up to 21. Lactic acid level is at 2.8. Repeat chest x-ray showed some lower lobe pulmonary filtration. Note that the patient has a gastric pull related to his previous history of esophageal cancer. Nevertheless, the possibility of small better pleural effusion and bibasilar airspace disease in the lung bases cannot be completely ruled out. The patient also went into atrial fibrillation with rapid response. He was started on amiodarone drip for rate control and currently is running at 0.5 mg per minute. A triple lumen catheter was established today for IV access and hemodynamic instability. Note that post intubation, NG tube was inserted and the patient had a total of 700 mL of gastric output. The output was somewhat bloody. Nevertheless, there is no clear indication for a GI bleed. Hemoglobin was as high as 13.7 and dropped down to 10.3. There may be a component of mild upper GI bleeding. His INR is at 2 with a PT of 19.2. Anticoagulation was placed on hold for now. Vitamin K will be given. 02/21/2020, the patient remains intubated on a mechanical ventilator. The pat ient's is on propofol at 30 g per KG per minute. He is well sedated. Earlier this morning he was an assist-control mode at the rate of 28 with a tidal volume of 600 and FiO2 of 50% with a PEEP of 10. The chest x-ray shows no significant changes compared to earlier films. The blood gas showed a pH of 7.36 with a pCO2 of 27 and pO2 of 121. The patient about the pleural effusions and bilateral air space disease in the lung bases without any significant change. The patient remains on accommodation Zosyn and vancomycin. He is afebrile. White cell count is up to 31. Meanwhile, he remains hemodynamically unstable. Despite aggressive the being resuscitated with IV fluids, the patient is still requiring pressors. He remains on norepinephrine infusion at 50 g per minute. He is also on normal saline at the rate of 100 mL an hour. Noted the patient is still atrial fibrillation. He was covered with an amiodarone drip and amiodarone is still running at 0.5 mg per minute. Cardizem was also added for better rate control at the rate of 50 mg an hour. He is still on and off tachycardic. On his blood work, he continues to show a component of non-anion gap metabolic acidosis. The patient's serum bicarb is at 16 with an anion gap of 8. BUN is at 41 with a creatinine of 1.2. The neck fluid balance is +3.7 L for the past 24 hours. The patient has no ongoing gastric output. He remains nothing by mouth. The J-tube is intact and an NG tube was also in place. Objective - Vital Signs Vital signs: Vital Signs Temp 98.7 F 02/21/20 08:00 Pulse 123 H 02/21/20 12:00 Resp 27 H 02/21/20 11:00 BP 203/129 02/21/20 11:00 Pulse Ox 98 02/21/20 11:00 Intake & Output 02/20/20 02/21/20 02/21/20 18:59 06:59 18:59 Intake Total 3100.480 4712.537 9094.659 Output Total 325 615 280 Balance 2775.480 305.094 7931.659 Weight 66 kg Intake: IV 2680 1200 200 Sodium Chloride 0.9% 1, 680 1200 200 000 ml @ 100 mls/hr IV . Q10H [facility] Rx#:[id number] Sodium Chloride 0.9% 1, 2000 000 ml @ 999 mls/hr IV . Q1H1M ONE Rx#:[id number] Intake, IV Titration 330.480 238.968 8374.659 Amount Amiodarone 300 mg In 250 Dextrose 5% in Water 250 ml @ 0.5 MG/MIN 25 mls/hr IV .Q10H [facility] Rx#: [id number] Amiodarone 300 mg In 250 Dextrose 5% in Water 250 ml @ 0.5 MG/MIN 25 mls/hr IV .Q10H [facility] Rx#: [id number] Dextrose 5% in Water 1, 375 000 ml @ 75 mls/hr IV . [id number] [facility] with Sodium Bicarb (1 Meq/ml) 150 ml Rx#:[id number] Norepinephrine 32 mg In 66.151 141.539 Sodium Chloride 0.9% 218 ml @ 0.05 MCG/KG/MIN 1. 441 mls/hr IV .Q24H [facility] Rx#:[id number] Piperacillin-Tazobactam 3 100 100 .375 gm In Sodium Chloride 0.9% 100 ml @ 25 mls/hr IVPB Q8HR [facility] Rx# :[id number] Vancomycin 1,250 mg In 250 Sodium Chloride 0.9% 250 ml @ 125 mls/hr IVPB ONCE ONE Rx#:[id number] Vancomycin 1,250 mg In 250 Sodium Chloride 0.9% 250 ml @ 125 mls/hr IVPB Q12H [facility] Rx#:[id number] propofoL 1,000 mg In 14.329 56.529 88.12 Empty Bag 1 bag @ Titrate IV .Q0M [facility] Rx#: [id number] Oral 90 Output: Urine 325 415 280 Emesis 200 Other: Voiding Method Indwelling Catheter Indwelling Catheter ABP, PAP, CO, CI - Last Documented Arterial Blood Pressure 128/59 - Exam GENERAL EXAM: Alert, very pleasant, frail-looking 64-year-old male patient, and the patient is sedated with propofol and the patient's calm and comfortable intubated on a mechanical ventilator. Orogastric and orotracheal tube are both in place. HEAD: Normocephalic/atraumatic. EYES: Normal reaction of pupils, equal size. Conjunctiva pink, sclera white. NOSE: Clear with pink turbinates. THROAT: No erythema or exudates. NECK: No masses, no JVD, no thyroid enlargement, no adenopathy. The patient has a left subclavian triple-lumen catheter in place. CHEST: No chest wall deformity. Symmetrical expansion. LUNGS: Equal air entry with scattered wheezes and rhonchi, improved CVS: The patient is tachycardic and there rate and rhythm is irregular consistent with atrial fibrillation with rapid ventricular response. and rhythm, normal S1 and S2, no gallops, no murmurs, no rubs ABDOMEN: Soft, nontender. No hepatosplenomegaly, normal bowel sounds, no guarding or rigidity. J tube is in place, with the tube feedings infusing, and the patient is tube feeds are currently on hold. EXTREMITIES: No clubbing, no edema, no cyanosis, 2+ pulses and upper and lower extremities. MUSCULOSKELETAL: Muscle strength and tone normal. SPINE: No scoliosis or deformity SKIN: No rashes CENTRAL NERVOUS SYSTEM: The patient is currently sedated on propofol - Labs CBC & Chem 7: 02/21/20 04:28 02/21/20 04:28 Labs: Abnormal Lab Results - Last 24 Hours (Table) 02/20/20 02/20/20 02/21/20 Range/Units 18:22 23:47 04:28 WBC (3.8-10.6) k/uL MCHC (31.0-37.0) g/dL Neutrophils # (Manual) (1.3-7.7) k/uL PT 16.1 H (9.0-12.0) sec INR 1.6 H (<1.2) ABG pCO2 (35-45) mmHg ABG pO2 (83-108) mmHg ABG HCO3 (21-25) mmol/L ABG Total CO2 (19-24) mmol/L ABG O2 Saturation (94-97) % Chloride (98-107) mmol/L Carbon Dioxide (22-30) mmol/L BUN (9-20) mg/dL Glucose (74-99) mg/dL POC Glucose (mg/dL) 137 H 127 H (75-99) mg/dL Calcium (8.4-10.2) mg/dL 02/21/20 02/21/20 02/21/20 Range/Units 04:28 04:28 05:08 WBC 31.9 H (3.8-10.6) k/uL MCHC 30.5 L (31.0-37.0) g/dL Neutrophils # (Manual) 29.60 H (1.3-7.7) k/uL PT (9.0-12.0) sec INR (<1.2) ABG pCO2 27 L (35-45) mmHg ABG pO2 121 H (83-108) mmHg ABG HCO3 15 L (21-25) mmol/L ABG Total CO2 16 L (19-24) mmol/L ABG O2 Saturation 98.4 H (94-97) % Chloride 117 H (98-107) mmol/L Carbon Dioxide 16 L (22-30) mmol/L BUN 41 H (9-20) mg/dL Glucose 155 H (74-99) mg/dL POC Glucose (mg/dL) (75-99) mg/dL Calcium 7.4 L (8.4-10.2) mg/dL 02/21/20 02/21/20 Range/Units 05:48 12:04 WBC (3.8-10.6) k/uL MCHC (31.0-37.0) g/dL Neutrophils # (Manual) (1.3-7.7) k/uL PT (9.0-12.0) sec INR (<1.2) ABG pCO2 (35-45) mmHg ABG pO2 (83-108) mmHg ABG HCO3 (21-25) mmol/L ABG Total CO2 (19-24) mmol/L ABG O2 Saturation (94-97) % Chloride (98-107) mmol/L Carbon Dioxide (22-30) mmol/L BUN (9-20) mg/dL Glucose (74-99) mg/dL POC Glucose (mg/dL) 139 H 154 H (75-99) mg/dL Calcium (8.4-10.2) mg/dL Microbiology - Last 24 Hours (Table) 02/20/20 00:00 Gram Stain - Preliminary Sputum Sputum Culture - Preliminary 02/19/20 16:59 Blood Culture - Preliminary Blood No Growth after 24 hours Assessment and Plan Plan: 1 Acute hypoxemic respiratory failure , most likely secondary to aspiration pneumonia with bibasilar infiltrates, and the patient had to be intubated and placed on a mechanical ventilator. The patient remains sedated on a mechanical ventilator. There has been some improvement in the patient's oxygenation. The patient however remains in shock and remains quite hypotensive. He is still having issues with atrial fibrillation with rapid ventricular response.History of recurrent aspiration 2 shock, and the patient is profoundly hypotensive probably related to a compon ent of intravascular volume depletion and septic shock. The patient is currently on pressors. The patient is still on pressors and norepinephrine infusion is running at 13 g per minute. The patient is still requiring pressors and IV fluids. 3 atrial fibrillation with rapid ventricular response, currently on amiodarone drip for rate control at the rate of 0.5 mg per minute. The patient is also on a Cardizem drip at 15 mg an hour. Heart rate remains quite tachycardic despite ongoing treatment. 4 suspect upper GI bleed, currently nothing by mouth and the J-tube feeding has been placed on hold 5 History of esophageal cancer, status post gastric pull and the patient has gastroparesis and the patient is being fed through a J-tube. 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 I am going to drop the patient's PEEP down to 8 and the respiratory rate down to 24 Give the patient to amp of 50 mEq of sodium bicarb Start the patient on bicarb infusion at 150 mEq at the rate of 75 mL an hour Continue norepinephrine infusion for blood pressure support Check echocardiogram, repeat echo cardiac exam showed an EF of around 40-45%. This was a technically difficult study as the patient was having issues with atrial fibrillation with RVR. Amiodarone drip for rate control as the patient is quite tachycardic at this po int in time and the patient is having ectopies, in addition to Cardizem drip at 15 mg an hour. I will bolus the patient with another 150 mEq of amiodarone. We'll monitor the rate. IV Zosyn and add vancomycin Hold anticoagulation as the patient could be potentially having a upper GI source of bleeding. May start IV heparin as the patient is not showing any signs of GI bleed nutritional support via a J-tube at a lower rate of 10 mL an hour. Keep NG tube in place. Condition is critical and the this evaluation was on a more than 30 minutes Time with Patient: Greater than 30
[2020-02-21] MEDS: INSULIN ASPART (NovoLOG) 100 UNIT/ML VIAL SQ SCH ×2 (13:19→18:36)
--- NOTE | 2020-02-21 15:56 | P.PN ---
Subjective Acute hypoxic respiratory failure probably secondary to pneumonia 64-year-old the male admitted for pneumonia bilateral, predominantly in the right lower lobes. There is a concern about aspiration patient has been vomiting. Patient does take a modified diet by mouth at home does have a PEG tube in place. Patient the antibiotics were changed to Zosyn which is appropriate. Patient went into respiratory distress on some requirements have gone up because of which patient was transferred to ICU later in the day patient started having A. fib with rapid ventricular rate because of which patient was started on Cardizem and cardiology was consulted. I'm also consulting speech therapy because of his swallowing issues to assess if her appropriate for the patient to be continued on modified diet by mouth. 02/13/2020 Patient clinically looks better patient is being continued on Zosyn continued on IV fluids. Patient will undergo swallow evaluation today speech therapy was consulted. Patient remains nothing by mouth patient is being started on Eliquis for the atrial fibrillation anticoagulation patient is presently on oral amiodarone heart rate is better controlled today. On 02/14/2020 Patient is currently sitting in the chair comfortably. Still having baseline shortness of breath and bibasilar crackles on examination. Currently on high flow oxygen. Chest x-ray showed findings are not significantly changed. Basilar effusions an d associated atelectasis versus pulmonary edema. Patient is being continued on IV antibiotic without Zosyn for possible aspiration and also a dose of Lasix IV was given. Patient has been continued on telemetry monitoring and heart rate is better controlled. Current medications reviewed. 02/15/2020 Patient is currently sitting in the chair comfortably. Saturating around 95% on 6 L oxygen via nasal cannula. Patient was started back on tube feedings today. Patient otherwise denied any complaints of chest pain worsening shortness breath. No nausea vomiting. Denied any abdominal pain. Currently maintaining sinus rhythm. Continued on Eliquis and amiodarone and cardiology is on board. Chest x-ray showed findings are not significantly changed. Basilar effusions and associated atelectasis versus pulmonary edema/pneumonia. Patient is on antibiotics in the form of Zosyn. Laboratory data showed WBC 10.7, hemoglobin 12.8 and platelets of 224 BUN is 18 and creatinine 0.58 Pulmonary and cardiology and general surgery is on board. Current medications reviewed On 02/16/2020 Patient is currently sitting in chair comfortably. Pulse ox about 90s at 3 L via nasal cannula. No fever no chills. Patient is being continued IV antibiotics.tube feedings were started and advance as tolerated. Blood and sputum cultures show no growth. Wound cultures from the abdomen showed Cassie albicans. Continued on dressing changes. No surgical intervention recommended. General surgery has seen the patient. Laboratory data showed WBC 10.0 hemoglobin 12.0 and platelets 253 BUN 16 and creatinine 0.61 patient is being transferred to general medical floor. 02/17/2020 Patient is currently lying in the bed comfortably. Still requiring oxygen at 3 L via nasal cannula. Awake alert oriented but lethargic. No fever no chills. Patient is being continued on antibiotics now for Zosyn. Chest x-ray showed right basilar infiltrates with small bilateral pleural effusions stable from comparison. Patient is tolerating tube feedings at 50 cc/h PEG tube site wound cultures showed Cassie albicans. Patient is being continued on duo nebs and Pulmicort. Heart rate is controlled. Anticoagulation with Eliquis and also on amiodarone and metoprolol 3 times daily. Cardiology and pulmonary is following. Laboratory data showed potassium 3.7, BUN 16 and creatinine 0.6 and hemoglobin 12.3 WBC 9.4 Discussed with his at bedside in detail. 02/18/2020 Patient had a repeat CAT scan which did show the infiltrates that were present before no significant worsening of these infiltrates. Patient cannot take an ything via by mouth but will continue his J-tube feedings. 02/19/2020 Patient was doing well earlier today morning and subsequently went into respiratory failure again presently requiring BiPAP. Repeat chest x-ray did not show any new infiltrate. 02/20/2020 Patient underwent respiratory failure patient is presently intubated patient the is on pressor support as well. Patient coded with asystole for few minutes and was successfully resuscitated after that patient does have pupillary reflexes patient did receive a paralytic agents because of which unable to assess the cough or gag reflex at this time. 02/21/2020 Patient can use to be a mechanical ventilator on propofol drip patient is on assist-control ventilation 50% FiO2 pupils and patient does have bilateral airspace disease bilateral pleural effusions patient remains on Zosyn and vancomycin patient remains on norepinephrine, amiodarone and Cardizem drips. Patient presently has an NG tube and J-tube Review of systems: Unable to obtain due to his clinical condition All inpatient medications were reviewed and appropriate changes in these medications as dictated in the interval history and assessment and plan. Objective - Vital Signs Vital signs: Vital Signs Temp 99.0 F 02/21/20 12:00 Pulse 96 02/21/20 15:42 Resp 24 02/21/20 14:00 BP 96/65 02/21/20 14:00 Pulse Ox 99 02/21/20 14:00 Intake & Output 02/20/20 02/21/20 02/21/20 18:59 06:59 18:59 Intake Total 3100.480 4326.612 6180.659 Output Total 325 615 280 Balance 2775.480 330.368 9390.659 Weight 66 kg 66 kg Intake: IV 2680 1200 200 Sodium Chloride 0.9% 1, 680 1200 200 000 ml @ 100 mls/hr IV . Q10H [facility] Rx#:[id number] Sodium Chloride 0.9% 1, 2000 000 ml @ 999 mls/hr IV . Q1H1M [facility] Rx#:[id number] Intake, IV Titration 330.480 369.293 9110.659 Amount Amiodarone 300 mg In 250 Dextrose 5% in Water 250 ml @ 0.5 MG/MIN 25 mls/hr IV .Q10H [facility] Rx#: [id number] Amiodarone 300 mg In 250 Dextrose 5% in Water 250 ml @ 0.5 MG/MIN 25 mls/hr IV .Q10H [facility] Rx#: [id number] Dextrose 5% in Water 1, 375 000 ml @ 75 mls/hr IV . [id number] [facility] with Sodium Bicarb (1 Meq/ml) 150 ml Rx#:[id number] Norepinephrine 32 mg In 66.151 141.539 Sodium Chloride 0.9% 218 ml @ 0.05 MCG/KG/MIN 1. 441 mls/hr IV .Q24H [facility] Rx#:[id number] Piperacillin-Tazobactam 3 100 100 .375 gm In Sodium Chloride 0.9% 100 ml @ 25 mls/hr IVPB Q8HR [facility] Rx# :[id number] Vancomycin 1,250 mg In 250 Sodium Chloride 0.9% 250 ml @ 125 mls/hr IVPB ONCE [facility] Rx#:[id number] Vancomycin 1,250 mg In 250 Sodium Chloride 0.9% 250 ml @ 125 mls/hr IVPB Q12H [facility] Rx#:[id number] propofoL 1,000 mg In 14.329 56.529 88.12 Empty Bag 1 bag @ Titrate IV .Q0M [facility] Rx#: [id number] Oral 90 Output: Urine 325 415 280 Emesis 200 Other: Voiding Method Indwelling Catheter Indwelling Catheter Indwelling Catheter ABP, PAP, CO, CI - Last Documented Arterial Blood Pressure 109/59 - Exam PHYSICAL EXAMINATION: GENERAL: Patient is intubated sedated HEENT: Pupils are round and equally reacting to light. EOMI. No scleral icterus. No conjunctival pallor. Normocephalic, atraumatic. No pharyngeal erythema. No thyromegaly. CARDIOVASCULAR: S1 and S2 present. No murmurs, rubs, or gallops. PULMONARY: Diffuse bilateral rhonchi and crackles bibasilar ABDOMEN: Soft, nontender, nondistended, normoactive bowel sounds. No palpable organomegaly. MUSCULOSKELETAL: No joint swelling or deformity. EXTREMITIES: No cyanosis, clubbing, or pedal edema. NEUROLOGICAL: Patient is intubated sedated SKIN: No rashes. - Labs CBC & Chem 7: 02/21/20 04:28 02/21/20 04:28 Labs: Abnormal Lab Results - Last 24 Hours (Table) 02/20/20 02/20/20 02/21/20 Range/Units 18:22 23:47 04:28 WBC (3.8-10.6) k/uL MCHC (31.0-37.0) g/dL Neutrophils # (Manual) (1.3-7.7) k/uL PT 16.1 H (9.0-12.0) sec INR 1.6 H (<1.2) ABG pCO2 (35-45) mmHg ABG pO2 (83-108) mmHg ABG HCO3 (21-25) mmol/L ABG Total CO2 (19-24) mmol/L ABG O2 Saturation (94-97) % Chloride (98-107) mmol/L Carbon Dioxide (22-30) mmol/L BUN (9-20) mg/dL Glucose (74-99) mg/dL POC Glucose (mg/dL) 137 H 127 H (75-99) mg/dL Calcium (8.4-10.2) mg/dL 02/21/20 02/21/20 02/21/20 Range/Units 04:28 04:28 05:08 WBC 31.9 H (3.8-10.6) k/uL MCHC 30.5 L (31.0-37.0) g/dL Neutrophils # (Manual) 29.60 H (1.3-7.7) k/uL PT (9.0-12.0) sec INR (<1.2) ABG pCO2 27 L (35-45) mmHg ABG pO2 121 H (83-108) mmHg ABG HCO3 15 L (21-25) mmol/L ABG Total CO2 16 L (19-24) mmol/L ABG O2 Saturation 98.4 H (94-97) % Chloride 117 H (98-107) mmol/L Carbon Dioxide 16 L (22-30) mmol/L BUN 41 H (9-20) mg/dL Glucose 155 H (74-99) mg/dL POC Glucose (mg/dL) (75-99) mg/dL Calcium 7.4 L (8.4-10.2) mg/dL 02/21/20 02/21/20 Range/Units 05:48 12:04 WBC (3.8-10.6) k/uL MCHC (31.0-37.0) g/dL Neutrophils # (Manual) (1.3-7.7) k/uL PT (9.0-12.0) sec INR (<1.2) ABG pCO2 (35-45) mmHg ABG pO2 (83-108) mmHg ABG HCO3 (21-25) mmol/L ABG Total CO2 (19-24) mmol/L ABG O2 Saturation (94-97) % Chloride (98-107) mmol/L Carbon Dioxide (22-30) mmol/L BUN (9-20) mg/dL Glucose (74-99) mg/dL POC Glucose (mg/dL) 139 H 154 H (75-99) mg/dL Calcium (8.4-10.2) mg/dL Microbiology - Last 24 Hours (Table) 02/20/20 00:00 Gram Stain - Preliminary Sputum Sputum Culture - Preliminary Gram Neg Bacilli 02/19/20 16:59 Blood Culture - Preliminary Blood No Growth after 24 hours Assessment and Plan Plan: -Acute hypoxic respiratory failure secondary to pneumonia predominantly in the right. patient does have pleural effusions on both sides. Patient is on Zosyn at this time there is a concern for aspiration. Patient is presently intubated on assist-control ventilation please referred to pulmonology documentation for went settings. -Septic shock: Patient is presently on norepinephrine which will be continued -Paraxysmal Atrial fibrillation with rapid ventricular rate Patient is being switched to Eliquis. Patient is presently on amiodarone as well as Cardizem, patient present heart rate is controlled still in A. fib -gastroesophageal reflux disease with the possibility of GI bleed J-tube feedings are on hold -Hypertension -benign prostatic hypertrophy -History of renal cancer and esophageal cancer with dysphagia and a J-tube . -History of cerebral aneurysm. -KAROL His overall prognosis is extremely poor
[2020-02-21 17:07] LABS: Hemoglobin A1C 6.1 % (4.0-6.0)
[2020-02-21] MEDS: HEPARIN SODIUM,PORCINE 5,000 UNIT/ML 1 ML VIAL IV PRN (17:21)
[2020-02-21 18:24] LABS: Glucose,Whole Blood 165 mg/dL (75-99)
[2020-02-21] MEDS ORDERED: AMIODARONE 300 MG in DEXTROSE 5% IN WATER 250 ML IV SCH ×2 (23:01)
[2020-02-21 23:50] LABS: Glucose,Whole Blood 184 mg/dL (75-99)
[2020-02-22] MEDS: METOCLOPRAMIDE 5 MG/ML 2 ML VIAL IVP SCH ×4 (01:11→17:20)
[2020-02-22] MEDS: PIPERACILLIN-TAZOBACTAM 3.375 GM in SODIUM CHLORIDE 0.9% 100 ML IVPB SCH ×3 (01:12→17:20)
[2020-02-22] MEDS: METOPROLOL TARTRATE 5 MG/5 ML VIAL IVP SCH ×2 (01:12→05:24)
[2020-02-22] MEDS: DEXTROSE 5% IN WATER 1,000 ML with SODIUM BICARB (1 MEQ/ML) 150 ML IV SCH (01:12)
[2020-02-22 01:28] LABS: Glucose,Whole Blood 165 mg/dL (75-99)
[2020-02-22] MEDS: HEPARIN SODIUM,PORCINE 5,000 UNIT/ML 1 ML VIAL IV PRN (01:31)
[2020-02-22] MEDS: INSULIN ASPART (NovoLOG) 100 UNIT/ML VIAL SQ SCH ×4 (01:31→18:35)
[2020-02-22] MEDS: AMIODARONE 300 MG in DEXTROSE 5% IN WATER 250 ML IV SCH ×2 (04:12)
[2020-02-22 04:39] LABS: Basophils % (A) 0 %; Eosinophils # (A) 0.2 k/uL (0-0.7); Eosinophils % (A) 1 %; HCT 39.4 % (39.0-53.0); Hypochromasia Slight; Lymphocytes # (A) 0.9 k/uL (1.0-4.8); Lymphocytes % (A) 4 %; MCH 26.9 pg (25.0-35.0); MCHC 30.3 g/dL (31.0-37.0); MCV 88.8 fL (80.0-100.0); Mean Platelet Volume 8.6; Monocytes # (A) 0.4 k/uL (0-1.0); Monocytes % (A) 2 %; Neutrophils # (A) 22.4 k/uL (1.3-7.7); Neutrophils % (A) 94 %; Platelet Count 308 k/uL (150-450); RBC 4.44 m/uL (4.30-5.90); RDW 14.6 % (11.5-15.5); WBC 23.9 k/uL (3.8-10.6)
[2020-02-22 04:45] LABS: INR 1.6 (<1.2); Prothrombin Time 15.3 sec (9.0-12.0)
[2020-02-22 04:48] LABS: African American GFR (CKD) >90 (>60 ml/min/1.73 sqM); Anion Gap 5 mmol/L; Blood Urea Nitrogen 26 mg/dL (9-20); Carbon Dioxide 26 mmol/L (22-30); Chloride 110 mmol/L (98-107); Glucose 198 mg/dL (74-99); Non-African American GFR(CKD) >90 (>60 ml/min/1.73 sqM); Sodium 141 mmol/L (137-145)
[2020-02-22 04:54] LABS: Potassium 2.6 mmol/L (3.5-5.1)
[2020-02-22 05:02] LABS: ABG Base Excess 2.6 mmol/L; ABG HCO3 25 mmol/L (21-25); ABG Oxygen Saturation 99.7 % (94-97); ABG PCO2 30 mmHg (35-45); ABG PH 7.54 (7.35-7.45); ABG PO2 146 mmHg (83-108); ABG TCO2 26 mmol/L (19-24); Allen Test Performed? Yes
[2020-02-22] MEDS: POTASSIUM CHLORIDE ER 20 MEQ TAB.ER PO SCH ×3 (05:30→11:19)
[2020-02-22] MEDS: POTASSIUM CHLORIDE 20 MEQ in WATER FOR INJECTION 1 100ML.BAG IVPB SCH ×3 (05:30→11:21)
[2020-02-22 05:51] LABS: Glucose,Whole Blood 174 mg/dL (75-99)
[2020-02-22] MEDS: IPRATROPIUM-ALBUTEROL 3 ML NEB INHALATION SCH ×4 (07:19→19:37)
[2020-02-22] MEDS: HEPARIN SOD,PORK IN 0.45% NACL 25,000 UNIT in 0.45% NACL 1 250ML.BAG IV SCH ×2 (07:52→09:22)
--- NOTE | 2020-02-22 08:12 | XR ---
EXAMINATION TYPE: XR chest 1V portable DATE OF EXAM: 02/22/2020 COMPARISON: Prior chest x-ray 02/21/2020 HISTORY: Intubated TECHNIQUE: Single frontal view of the chest is obtained. FINDINGS: Endotracheal tube, left subclavian central venous catheter are again noted, orogastric tub e is again coiled likely within a hiatal hernia. Bibasilar increased attenuation persists. No evident pneumothorax. Ventriculoperitoneal shunt tubing is noted. There are overlying leads. Heart is stable . IMPRESSION: Findings are similar to prior exam. Probable basilar effusions and associated atelectasi s, correlate for possible pneumonia. Orogastric tube coiled within the lower thorax.
[2020-02-22] MEDS ORDERED: VANCOMYCIN TROUGH DUE 1 EACH MISC MISCELLANE ONE (09:00)
[2020-02-22] MEDS: SODIUM CHLORIDE 0.9% 1,000 ML IV SCH (09:09)
[2020-02-22] MEDS: CHLORHEXIDINE GLUCONATE 15 ML CUP MUCOUS MEM SCH ×2 (09:13→20:45)
[2020-02-22] MEDS: PANTOPRAZOLE 40 MG/10 ML VIAL IVP SCH (09:14)
--- NOTE | 2020-02-22 10:50 | P.PN ---
Subjective This is a pleasant 64-year-old male past medical history significant for paroxysmal atrial fibrillation on long-term anticoagulation, esophageal cancer with J-tube in place, hypertension and brain aneurysm in the past. He follows in the office with Dr. Claros. He currently on mechanical ventilation. He is currently maintaining sinus mechanism since around midnight last night. Blood pressure 121/59 heart rate 65 afebrile and maintaining oxygen saturation on mechanical ventilation. Laboratory data reviewed, WBC 23.9, hemoglobin 12, p latelets 308, INR 1.6, pH 7.54, CO2 30 and pO2 146, sodium 141, potassium 2.6, creatinine 0.66. GENERAL: Comfortable in bed on mechanical ventilation. NECK: Supple without JVD or thyromegaly. LUNGS: Respiration equal and unlabored. Diminished bilaterally. HEART: Regular rate and rhythm without murmurs, rubs or gallops. S1 and S2 heard. EXTREMITIES: Normal range of motion, diffuse edema noted, nonpitting. No clubbing or cyanosis. Peripheral pulses intact. ASSESSMENT Paroxysmal atrial fibrillation on Eliquis for anticoagulation currently maintaining sinus mechanism Acute hypoxic respiratory failure requiring mechanical ventilation Asystole arrest Aspiration pneumonia Lactic acidosis Leukocytosis Acute systolic heart failure s/p cardiac arrest History of esophageal cancer status post J-tube placement Hypertension History of brain aneurysm with THIRD HAND shunt PLAN Transition to oral amiodarone 400 mg BID and discontinue infusion. Taper per protocol. Continue heparin and coumadin for therapeutic INR of 2-3. Nurse Practitioner note has been reviewed, I agree with a documented findings and plan of care. Patient was seen and examined. Objective - Vital Signs Vital signs: Vital Signs Temp 97.2 F L 02/22/20 07:00 Pulse 65 02/22/20 08:00 Resp 24 02/22/20 08:00 BP 148/85 02/22/20 05:00 Pulse Ox 99 02/22/20 08:00 Intake & Output 02/21/20 02/22/20 02/22/20 18:59 06:59 18:59 Intake Total 2650.300 1722.656 245.284 Output Total 638 860 65 Balance 2012.300 862.656 180.284 Weight 66 kg 65.5 kg Intake: IV 340 1075 150 Dextrose 5% in Water 1, 825 150 000 ml @ 75 mls/hr IV . [id number] [facility] with Sodium Bicarb (1 Meq/ml) 150 ml Rx#:[id number] Sodium Chloride 0.9% 1, 340 000 ml @ 100 mls/hr IV . Q10H [facility] Rx#:[id number] Vancomycin 1,250 mg In 250 Sodium Chloride 0.9% 250 ml @ 125 mls/hr IVPB Q12H [facility] Rx#:[id number] Intake, IV Titration 2290.300 447.656 75.284 Amount Amiodarone 300 mg In 454.583 250 Dextrose 5% in Water 250 ml @ 0.5 MG/MIN 25 mls/hr IV .Q10H [facility] Rx#: [id number] Dextrose 5% in Water 1, 900 000 ml @ 75 mls/hr IV . [id number] [facility] with Sodium Bicarb (1 Meq/ml) 150 ml Rx#:[id number] Diltiazem 125 mg In 100.75 18.5 Sodium Chloride 0.9% 100 ml @ Per Protocol IV .Q0M [facility] Rx#:[id number] Heparin Sod,Pork in 0.45% 55.308 79.156 69.344 NaCl 25,000 unit In 0.45 % NaCl 1 250ml.bag @ 12 UNITS/KG/HR 7.92 mls/hr IV .Q24H [facility] Rx#: [id number] Norepinephrine 32 mg In 141.539 Sodium Chloride 0.9% 218 ml @ 0.05 MCG/KG/MIN 1. 441 mls/hr IV .Q24H [facility] Rx#:[id number] Piperacillin-Tazobactam 3 200 .375 gm In Sodium Chloride 0.9% 100 ml @ 25 mls/hr IVPB Q8HR [facility] Rx# :[id number] Vancomycin 1,250 mg In 250 Sodium Chloride 0.9% 250 ml @ 125 mls/hr IVPB Q12H [facility] Rx#:[id number] propofoL 1,000 mg In 188.12 100 5.94 Empty Bag 1 bag @ Titrate IV .Q0M [facility] Rx#: [id number] Tube Feeding 20 110 20 Other 90 Output: Gastric Drainage 300 Urine 638 560 65 Other: Voiding Method Indwelling Catheter Indwelling Catheter ABP, PAP, CO, CI - Last Documented Arterial Blood Pressure 121/59 - Labs CBC & Chem 7: 02/22/20 04:20 02/22/20 04:20 Labs: Abnormal Lab Results - Last 24 Hours (Table) 02/21/20 02/21/20 02/21/20 Range/Units 04:28 12:04 16:07 WBC (3.8-10.6) k/uL Hgb (13.0-17.5) gm/dL MCHC (31.0-37.0) g/dL Neutrophils # (1.3-7.7) k/uL Lymphocytes # (1.0-4.8) k/uL PT (9.0-12.0) sec INR (<1.2) APTT 36.7 H (22.0-30.0) sec ABG pH (7.35-7.45) ABG pCO2 (35-45) mmHg ABG pO2 (83-108) mmHg ABG Total CO2 (19-24) mmol/L ABG O2 Saturation (94-97) % Potassium (3.5-5.1) mmol/L Chloride (98-107) mmol/L BUN (9-20) mg/dL Glucose (74-99) mg/dL POC Glucose (mg/dL) 154 H (75-99) mg/dL Hemoglobin A1c 6.1 H (4.0-6.0) % Calcium (8.4-10.2) mg/dL 02/21/20 02/21/20 02/21/20 Range/Units 18:23 23:45 23:49 WBC (3.8-10.6) k/uL Hgb (13.0-17.5) gm/dL MCHC (31.0-37.0) g/dL Neutrophils # (1.3-7.7) k/uL Lymphocytes # (1.0-4.8) k/uL PT (9.0-12.0) sec INR (<1.2) APTT 31.8 H (22.0-30.0) sec ABG pH (7.35-7.45) ABG pCO2 (35-45) mmHg ABG pO2 (83-108) mmHg ABG Total CO2 (19-24) mmol/L ABG O2 Saturation (94-97) % Potassium (3.5-5.1) mmol/L Chloride (98-107) mmol/L BUN (9-20) mg/dL Glucose (74-99) mg/dL POC Glucose (mg/dL) 165 H 184 H (75-99) mg/dL Hemoglobin A1c (4.0-6.0) % Calcium (8.4-10.2) mg/dL 02/22/20 02/22/20 02/22/20 Range/Units 01:26 04:20 04:20 WBC (3.8-10.6) k/uL Hgb (13.0-17.5) gm/dL MCHC (31.0-37.0) g/dL Neutrophils # (1.3-7.7) k/uL Lymphocytes # (1.0-4.8) k/uL PT 15.3 H (9.0-12.0) sec INR 1.6 H (<1.2) APTT (22.0-30.0) sec ABG pH (7.35-7.45) ABG pCO2 (35-45) mmHg ABG pO2 (83-108) mmHg ABG Total CO2 (19-24) mmol/L ABG O2 Saturation (94-97) % Potassium 2.6 L* (3.5-5.1) mmol/L Chloride 110 H (98-107) mmol/L BUN 26 H (9-20) mg/dL Glucose 198 H (74-99) mg/dL POC Glucose (mg/dL) 165 H (75-99) mg/dL Hemoglobin A1c (4.0-6.0) % Calcium 7.0 L (8.4-10.2) mg/dL 02/22/20 02/22/20 02/22/20 Range/Units 04:20 04:58 05:49 WBC 23.9 H (3.8-10.6) k/uL Hgb 12.0 L (13.0-17.5) gm/dL MCHC 30.3 L (31.0-37.0) g/dL Neutrophils # 22.4 H (1.3-7.7) k/uL Lymphocytes # 0.9 L (1.0-4.8) k/uL PT (9.0-12.0) sec INR (<1.2) APTT (22.0-30.0) sec ABG pH 7.54 H (7.35-7.45) ABG pCO2 30 L (35-45) mmHg ABG pO2 146 H (83-108) mmHg ABG Total CO2 26 H (19-24) mmol/L ABG O2 Saturation 99.7 H (94-97) % Potassium (3.5-5.1) mmol/L Chloride (98-107) mmol/L BUN (9-20) mg/dL Glucose (74-99) mg/dL POC Glucose (mg/dL) 174 H (75-99) mg/dL Hemoglobin A1c (4.0-6.0) % Calcium (8.4-10.2) mg/dL 02/22/20 Range/Units 07:55 WBC (3.8-10.6) k/uL Hgb (13.0-17.5) gm/dL MCHC (31.0-37.0) g/dL Neutrophils # (1.3-7.7) k/uL Lymphocytes # (1.0-4.8) k/uL PT (9.0-12.0) sec INR (<1.2) APTT 46.4 H (22.0-30.0) sec ABG pH (7.35-7.45) ABG pCO2 (35-45) mmHg ABG pO2 (83-108) mmHg ABG Total CO2 (19-24) mmol/L ABG O2 Saturation (94-97) % Potassium (3.5-5.1) mmol/L Chloride (98-107) mmol/L BUN (9-20) mg/dL Glucose (74-99) mg/dL POC Glucose (mg/dL) (75-99) mg/dL Hemoglobin A1c (4.0-6.0) % Calcium (8.4-10.2) mg/dL Microbiology - Last 24 Hours (Table) 02/19/20 16:59 Blood Culture - Preliminary Blood No Growth after 48 hours 02/20/20 00:00 Gram Stain - Preliminary Sputum Sputum Culture - Preliminary Gram Neg Bacilli
[2020-02-22] MEDS: NOREPINEPHRINE 32 MG in SODIUM CHLORIDE 0.9% 218 ML IV SCH ×2 (11:16→22:19)
[2020-02-22] MEDS: VANCOMYCIN 1,250 MG in SODIUM CHLORIDE 0.9% 250 ML IVPB SCH ×2 (11:19→17:20)
[2020-02-22] MEDS: AMIODARONE 200 MG TAB PO SCH ×2 (11:23→20:45)
[2020-02-22] MEDS ORDERED: METHYLENE BLUE 50 MG/10 ML AMPUL MISCELLANE ONE (11:25)
[2020-02-22 12:32] LABS: Glucose,Whole Blood 102 mg/dL (75-99)
--- NOTE | 2020-02-22 12:39 | P.PN ---
Subjective Progress Note Date: 02/22/20 This is a 64-year-old white male patient of Dr. Claude Deluna that was admitted through the emergency department on 02/11/2020 when he came in for evaluation of shortness of breath, hypoxemia. Patient has a known history of esophageal cancer status post chemotherapy and NG tube placement, has a known history of COPD and CHF. Patient was started on empiric antibiotics in the form of Zosyn, nebulized bronchodilators, and diuretics, did require high flow oxygen per Airvo, which was discontinued yesterday, patient is currently on 6 L of oxygen per high flow nasal cannula with a pulse ox of 93-95%, his tube feedings were held yesterday related to some leaking around the bolster, surgical services were consulted and Dr. Styles adjusted the bolster, and tube feedings were resumed today, with TwoCal HN currently at 10 ML per hour. Of note previously patient was receiving tube feedings and consuming some nausea fluids by mouth. He is currently strict nothing by mouth, and receiving all of his nutrition via his J-tube. He is sounding much less congested today, bronchospastic, breathing easier, more comfortably, he sitting up in the chair. His vital signs are stable, his been afebrile, hemodynamically stable, 0.9 normal saline infusing at a rate of 20 ML per hour, yesterday he received a dose of Lasix, and he produces 2.8 L and urine output, he is -1.4 L over last 24 hours, indwelling catheter is in place. On admission patient was in A. fib with RVR, he is currently in sinus mechanism, he is on oral amiodarone and Eliquis for anticoagulation, cardiology services are following. Today's chest x-ray has been reviewed, showing stable diffuse pleural parenchymal disease related to aspiration pneumonia. Today's labs have been reviewed, showing white blood cell, 10.7, hemoglobin of 12.8, sodium is 140, potassium is 3.4, the rest of electrolytes were within normal limits, BUN is 18 creatinine 0.58. All microbiology has shown no growth. He is on Zosyn for antibiotic coverage. The patient is seen today 02/16/2020 in follow-up in the intensive care unit. He is currently resting quite comfortably in bed. Awake and alert in no acute distress. Maintaining O2 saturations in the 90s on 3 L/m per nasal cannula. 0.9 normal saline at 20 ML's per hour. He is receiving nourishment via PEG tube with TwoCal HN at 30 MLS per hour with a goal of 40 ML's per hour. White count 10.0. Hemoglobin 12.0. Sodium 138. Potassium 4.2. Creatinine 0.61. Blood and wound and sputum cultures reveal no growth. He is currently on DuoNeb inhalations, Pulmicort inhalations, antibiotics in the form of Zosyn. The patient is seen today 02/17/2020 in follow-up in the intensive care unit. He is currently resting comfortably in bed. Awake and alert in no acute distress. He is maintaining good O2 saturations in the 90s on 3 L/m per nasal cannula. Chest x-ray reveals right basilar infiltrate with small bilateral pleural effusions. Stable compared to previous. 0.9 normal saline at 20 ML's per hour. Currently receiving TwoCal HN at 40 MLs per hour with a goal of 50 ML's per hour. Blood culture reveals no growth. Sputum culture reveals no growth. Abdomen reveals Cassie. White count 9.4. Hemoglobin 12.3. Sodium 142. Potassium 3.7. Creatinine 0.60. He remains on Zosyn. Anticoagulated with Eliquis. On 02/18/2020 and seeing the patient for a follow-up in the intensive care unit. The patient is having some difficulties with his J-tube. This was found to be clotted again and surgical consultation was again obtained in regards to this problem. In terms of his breathing, is breathing comfortably at 3 L of oxygen by nasal cannula with a pulse of 74%. He is on IV fluids with normal saline at rate of 20 mL an hour. He is in normal sinus rhythm. His chest x-ray still showing increased opacity in lung bases bilaterally and we opted to proceed with a CAT scan of the chest to characterized his abnormalities. The patient has no fever. The patient has no chills. The patient is taking some material orally for pleasure. I reviewed the CAT scan of the chest that was done this morning. The CAT scan showed small better pleural effusion. There is a limited consoli dation process in the left lower lobe. Some limited nodularity is also noted and this appears segment of the left lower lobe. The patient has postsurgical changes with previous esophagectomy and gastric pull. No evidence of any lymphadenopathy. No evidence of any cardiomegaly. 02/19/2020, the patient is resting comfortably in bed and oxidation is slightly improved and currently is on 2 L about 2 by nasal cannula. His current pulse ox is 92%. A CAT scan of the chest was obtained yesterday and showed no significant pleural effusion. There was a consolidative process in the left lower lobe unchanged compared to the previous examination. There was also a linear atelectasis in the right lower lobe. There is also nodularity identified in the right lower lobe. Addition the nodularity in this appears segment of the left lower lobe. The previously noted nodules in the left lower lobe are less conspicuous and there is small bilateral pleural effusions bilaterally. The patient is postop esophagectomy and gastric pull-through. He has no fever. No chills. The issues and a competition related to J-tube feeding has been dealt with and the patient's catheter has been flushed appropriately by the nursing staff and the patient is currently receiving enteral feeding vi the jejunostomy tube. The patient is also in atrial fibrillation. Anticoagulation will be resumed and the patient be started back on Eliquis for now. No respiratory distress. Awake and alert and following commands and answering questions. 02/20/2020, the patient's condition is obviously decompensated. Since yesterday afternoon, the patient developed progressive worsening shortness of breath and late at night, the patient went to respiratory failure requiring intubation and mechanical ventilation. Post intubation, the patient had a brief cardiopulmonary arrest where he became bradycardic and then went into cardiac arrest where he was resuscitated in the intensive care unit and there was return of spontaneous circulation. This morning, the patient is intubated on a mechanical ventilator. I saw him sedated on propofol at 50 g per KG per minute. He is an assist-control mode of ventilator at the rate of 28 with a tidal volume of 600 and FiO2 of 1% with a PEEP of 10. Ventilator adjustments was done earlier this morning and the patient was switched to ACC/smoking. Subsequent blood gases showed improvement and acid base status and the most recent blood gases showed a pH of 7.37 with a pCO2 of 26 and pO2 of 231. FiO2 was dropped down to 50%. The patient is significantly hypotensive and hemodynamically unstable. He was given a total of 2 L of IV fluid and norepinephrine infusion is being titrated to maintain a mean arterial pressure above 65. He is afebrile. White cell count is up to 21. Lactic acid level is at 2.8. Repeat chest x-ray showed some lower lobe pulmonary filtration. Note that the patient has a gastric pull related to his previous history of esophageal cancer. Nevertheless, the possibility of small better pleural effusion and bibasilar airspace disease in the lung bases cannot be completely ruled out. The patient also went into atrial fibrillation with rapid response. He was started on amiodarone drip for rate control and currently is running at 0.5 mg per minute. A triple lumen catheter was established today for IV access and hemodynamic instability. Note that post intubation, NG tube was inserted and the patient had a total of 700 mL of gastric output. The output was somewhat bloody. Nevertheless, there is no clear indication for a GI bleed. Hemoglobin was as high as 13.7 and dropped down to 10.3. There may be a component of mild upper GI bleeding. His INR is at 2 with a PT of 19.2. Anticoagulation was placed on hold for now. Vitamin K will be given. 02/21/2020, the patient remains intubated on a mechanical ventilator. The pat ient's is on propofol at 30 g per KG per minute. He is well sedated. Earlier this morning he was an assist-control mode at the rate of 28 with a tidal volume of 600 and FiO2 of 50% with a PEEP of 10. The chest x-ray shows no significant changes compared to earlier films. The blood gas showed a pH of 7.36 with a pCO2 of 27 and pO2 of 121. The patient about the pleural effusions and bilateral air space disease in the lung bases without any significant change. The patient remains on accommodation Zosyn and vancomycin. He is afebrile. White cell count is up to 31. Meanwhile, he remains hemodynamically unstable. Despite aggressive the being resuscitated with IV fluids, the patient is still requiring pressors. He remains on norepinephrine infusion at 50 g per minute. He is also on normal saline at the rate of 100 mL an hour. Noted the patient is still atrial fibrillation. He was covered with an amiodarone drip and amiodarone is still running at 0.5 mg per minute. Cardizem was also added for better rate control at the rate of 50 mg an hour. He is still on and off tachycardic. On his blood work, he continues to show a component of non-anion gap metabolic acidosis. The patient's serum bicarb is at 16 with an anion gap of 8. BUN is at 41 with a creatinine of 1.2. The neck fluid balance is +3.7 L for the past 24 hours. The patient has no ongoing gastric output. He remains nothing by mouth. The J-tube is intact and an NG tube was also in place. 02/22/2020, the patient remains intubated on a mechanical ventilator. Nevertheless, much more comfortable and synchronous with the mechanical ventilator on today's evaluation. The patient remained on assist control at the rate of 24 with a tidal volume of 600 and FiO2 of 50% with a PEEP of 8. The blood gases shows a component of respiratory alkalosis. The pH is at 7.54 pCO2 of 30 and pO2 of 146. Chest x-ray shows no interval changes and the patient has bilateral lower lobe pulmonary infiltrates and effusion and a large intrathoracic stomach due to gastric pull-through. The patient has no major orotracheal secretions. He was started on enteral feeding through his J-tube and the patient has an NG tube in place and output from the NG tube is been in the order of 100-200 mL of gastric with the over the past 24 hours. Hemodynamically, he is doing better. His A. fib is under better control. The patient remains on a amiodarone drip at 0.5 mg per minute. The patient is also on a lower dose of norepinephrine infusion which is in the process of being weaned off and currently is on 0.15 mg per KG per minute. The patient is on Cardizem drip at 15 mg an hour this was cut down to 10 minute process of cutting it down further. The patient remains on IV heparin drip. The patient is also on a bicarb infusion drip and the bicarb can be discontinued as the patient's serum bicarb has normalized and subsequent to 24 and the patient developed a component of alkalosis which is essentially respiratory alkalosis and his blood gases. The sputum analysis has shown Klebsiella and the patient is still on a combination of Zosyn and vancomycin. The white cell count is improving is currently down to 23.9. The potassium level needs to be replaced as low at 2.6. Renal function is stable for now. No other significant issues overnight. The patient is somewhat improved since yesterday. A quick sedation holiday will be given as the patient is currently on propofol running at 20 g per KG per minute. Objective - Vital Signs Vital signs: Vital Signs Temp 97.2 F L 02/22/20 07:00 Pulse 72 02/22/20 11:50 Resp 22 02/22/20 11:00 BP 116/73 02/22/20 11:00 Pulse Ox 99 02/22/20 11:00 Intake & Output 02/21/20 02/22/20 02/22/20 18:59 06:59 18:59 Intake Total 2650.300 1722.656 706.189 Output Total 638 860 275 Balance 2012.300 862.656 431.189 Weight 66 kg 65.5 kg Intake: IV 340 1075 375 0.9 NACL 225 Dextrose 5% in Water 1, 825 150 000 ml @ 75 mls/hr IV . [id number] EDER with Sodium Bicarb (1 Meq/ml) 150 ml Rx#:[id number] Sodium Chloride 0.9% 1, 340 000 ml @ 100 mls/hr IV . Q10H EDER Rx#:[id number] Vancomycin 1,250 mg In 250 Sodium Chloride 0.9% 250 ml @ 125 mls/hr IVPB Q12H EDER Rx#:[id number] Intake, IV Titration 2290.300 447.656 311.189 Amount Amiodarone 300 mg In 454.583 250 Dextrose 5% in Water 250 ml @ 0.5 MG/MIN 25 mls/hr IV .Q10H EDER Rx#: [id number] Dextrose 5% in Water 1, 900 000 ml @ 75 mls/hr IV . [id number] EDER with Sodium Bicarb (1 Meq/ml) 150 ml Rx#:[id number] Diltiazem 125 mg In 100.75 18.5 Sodium Chloride 0.9% 100 ml @ Per Protocol IV .Q0M EDER Rx#:[id number] Heparin Sod,Pork in 0.45% 55.308 79.156 69.344 NaCl 25,000 unit In 0.45 % NaCl 1 250ml.bag @ 12 UNITS/KG/HR 7.92 mls/hr IV .Q24H EDER Rx#: [id number] Norepinephrine 32 mg In 141.539 228.307 Sodium Chloride 0.9% 218 ml @ 0.05 MCG/KG/MIN 1. 441 mls/hr IV .Q24H EDER Rx#:[id number] Piperacillin-Tazobactam 3 200 .375 gm In Sodium Chloride 0.9% 100 ml @ 25 mls/hr IVPB Q8HR EDER Rx# :[id number] Vancomycin 1,250 mg In 250 Sodium Chloride 0.9% 250 ml @ 125 mls/hr IVPB Q12H EDER Rx#:[id number] propofoL 1,000 mg In 188.12 100 13.538 Empty Bag 1 bag @ Titrate IV .Q0M EDER Rx#: [id number] Tube Feeding 20 110 20 Other 90 Output: Gastric Drainage 300 Urine 638 560 275 Other: Voiding Method Indwelling Catheter Indwelling Catheter ABP, PAP, CO, CI - Last Documented Arterial Blood Pressure 125/59 - Exam GENERAL EXAM: Alert, very pleasant, frail-looking 64-year-old male patient, and the patient is sedated with propofol and the patient's calm and comfortable intubated on a mechanical ventilator. Orogastric and orotracheal tube are both in place. HEAD: Normocephalic/atraumatic. EYES: Normal reaction of pupils, equal size. Conjunctiva pink, sclera white. NOSE: Clear with pink turbinates. THROAT: No erythema or exudates. NECK: No masses, no JVD, no thyroid enlargement, no adenopathy. The patient has a left subclavian triple-lumen catheter in place. CHEST: No chest wall deformity. Symmetrical expansion. LUNGS: Equal air entry with scattered wheezes and rhonchi, improved CVS: The patient is tachycardic and there rate and rhythm is irregular consistent with atrial fibrillation with rapid ventricular response. and rhythm, normal S1 and S2, no gallops, no murmurs, no rubs ABDOMEN: Soft, nontender. No hepatosplenomegaly, normal bowel sounds, no guarding or rigidity. J tube is in place, with the tube feedings infusing, and the patient is tube feeds are currently on hold. EXTREMITIES: No clubbing, no edema, no cyanosis, 2+ pulses and upper and lower extremities. MUSCULOSKELETAL: Muscle strength and tone normal. SPINE: No scoliosis or deformity SKIN: No rashes CENTRAL NERVOUS SYSTEM: The patient is currently sedated on propofol - Labs CBC & Chem 7: 02/22/20 04:20 02/22/20 04:20 Labs: Abnormal Lab Results - Last 24 Hours (Table) 02/21/20 02/21/20 02/21/20 Range/Units 04:28 16:07 18:23 WBC (3.8-10.6) k/uL Hgb (13.0-17.5) gm/dL MCHC (31.0-37.0) g/dL Neutrophils # (1.3-7.7) k/uL Lymphocytes # (1.0-4.8) k/uL PT (9.0-12.0) sec INR (<1.2) APTT 36.7 H (22.0-30.0) sec ABG pH (7.35-7.45) ABG pCO2 (35-45) mmHg ABG pO2 (83-108) mmHg ABG Total CO2 (19-24) mmol/L ABG O2 Saturation (94-97) % Potassium (3.5-5.1) mmol/L Chloride (98-107) mmol/L BUN (9-20) mg/dL Glucose (74-99) mg/dL POC Glucose (mg/dL) 165 H (75-99) mg/dL Hemoglobin A1c 6.1 H (4.0-6.0) % Calcium (8.4-10.2) mg/dL 02/21/20 02/21/20 02/22/20 Range/Units 23:45 23:49 01:26 WBC (3.8-10.6) k/uL Hgb (13.0-17.5) gm/dL MCHC (31.0-37.0) g/dL Neutrophils # (1.3-7.7) k/uL Lymphocytes # (1.0-4.8) k/uL PT (9.0-12.0) sec INR (<1.2) APTT 31.8 H (22.0-30.0) sec ABG pH (7.35-7.45) ABG pCO2 (35-45) mmHg ABG pO2 (83-108) mmHg ABG Total CO2 (19-24) mmol/L ABG O2 Saturation (94-97) % Potassium (3.5-5.1) mmol/L Chloride (98-107) mmol/L BUN (9-20) mg/dL Glucose (74-99) mg/dL POC Glucose (mg/dL) 184 H 165 H (75-99) mg/dL Hemoglobin A1c (4.0-6.0) % Calcium (8.4-10.2) mg/dL 02/22/20 02/22/20 02/22/20 Range/Units 04:20 04:20 04:20 WBC 23.9 H (3.8-10.6) k/uL Hgb 12.0 L (13.0-17.5) gm/dL MCHC 30.3 L (31.0-37.0) g/dL Neutrophils # 22.4 H (1.3-7.7) k/uL Lymphocytes # 0.9 L (1.0-4.8) k/uL PT 15.3 H (9.0-12.0) sec INR 1.6 H (<1.2) APTT (22.0-30.0) sec ABG pH (7.35-7.45) ABG pCO2 (35-45) mmHg ABG pO2 (83-108) mmHg ABG Total CO2 (19-24) mmol/L ABG O2 Saturation (94-97) % Potassium 2.6 L* (3.5-5.1) mmol/L Chloride 110 H (98-107) mmol/L BUN 26 H (9-20) mg/dL Glucose 198 H (74-99) mg/dL POC Glucose (mg/dL) (75-99) mg/dL Hemoglobin A1c (4.0-6.0) % Calcium 7.0 L (8.4-10.2) mg/dL 02/22/20 02/22/20 02/22/20 Range/Units 04:58 05:49 07:55 WBC (3.8-10.6) k/uL Hgb (13.0-17.5) gm/dL MCHC (31.0-37.0) g/dL Neutrophils # (1.3-7.7) k/uL Lymphocytes # (1.0-4.8) k/uL PT (9.0-12.0) sec INR (<1.2) APTT 46.4 H (22.0-30.0) sec ABG pH 7.54 H (7.35-7.45) ABG pCO2 30 L (35-45) mmHg ABG pO2 146 H (83-108) mmHg ABG Total CO2 26 H (19-24) mmol/L ABG O2 Saturation 99.7 H (94-97) % Potassium (3.5-5.1) mmol/L Chloride (98-107) mmol/L BUN (9-20) mg/dL Glucose (74-99) mg/dL POC Glucose (mg/dL) 174 H (75-99) mg/dL Hemoglobin A1c (4.0-6.0) % Calcium (8.4-10.2) mg/dL 02/22/20 Range/Units 12:29 WBC (3.8-10.6) k/uL Hgb (13.0-17.5) gm/dL MCHC (31.0-37.0) g/dL Neutrophils # (1.3-7.7) k/uL Lymphocytes # (1.0-4.8) k/uL PT (9.0-12.0) sec INR (<1.2) APTT (22.0-30.0) sec ABG pH (7.35-7.45) ABG pCO2 (35-45) mmHg ABG pO2 (83-108) mmHg ABG Total CO2 (19-24) mmol/L ABG O2 Saturation (94-97) % Potassium (3.5-5.1) mmol/L Chloride (98-107) mmol/L BUN (9-20) mg/dL Glucose (74-99) mg/dL POC Glucose (mg/dL) 102 H (75-99) mg/dL Hemoglobin A1c (4.0-6.0) % Calcium (8.4-10.2) mg/dL Microbiology - Last 24 Hours (Table) 02/20/20 00:00 Gram Stain - Final Sputum Sputum Culture - Final Klebsiella pneumoniae 02/19/20 16:59 Blood Culture - Preliminary Blood No Growth after 48 hours Assessment and Plan Plan: 1 Acute hypoxemic respiratory failure , most likely secondary to aspiration pneumonia with bibasilar infiltrates, and the patient had to be intubated and placed on a mechanical ventilator. The sputum culture showing Klebsiella pneumoniae and the patient remains on IV Zosyn. He is also on IV vancomycin. White cell count is improving. Oxygenation is improved and chest x-ray findings are essentially stable. The patient remains intubated on a mechanical ventilator. No significant orotracheal secretions. He is hemodynamically instability and a shock state is also improving. 2 shock, and the patient is profoundly hypotensive probably related to a component of intravascular volume depletion and septic shock. The patient is currently on pressors. The patient is still on pressors and norepinephrine infusion at the lower dose of 0.15 mg per KG per minute. He'll be gradually weaned off the pressors for now. 3 atrial fibrillation with rapid ventricular response, currently on amiodarone drip for rate control at the rate of 0.5 mg per minute. The patient is also on a Cardizem drip at 15 mg an hour. Heart rate is under adequate control. He has not required his IV beta blockers. When the process of weaning the patient off the Cardizem drip and amiodarone will be switched to oral. 4 suspect upper GI bleed, currently nothing by mouth and the J-tube feeding has been placed restarted and there is no evidence of any ongoing GI bleed and the patient's hemoglobin is stable for now. 5 History of esophageal cancer, status post gastric pull and the patient has gastroparesis and the patient is being fed through a J-tube. 6 leukocytosis secondary to above , improving 7 History of seizure disorder 8 History of brain aneurysm, and the patient had a [employer] aneurysm rupture 25 years ago an and comprehension and he neglectson the left side and has history of seizures 9 GERD/reflux 10 Sleep apnea syndrome, does not utilize a CPAP machine 11 previous history of a left heel wound, treated at the wound center 12 non-anion gap metabolic acidosis 13 difficult mobility and the patient wheelchair Plan In terms of the mechanical ventilator, I'm going to stop the Tylenol to 450, dropped a respiratory rate down to 14, dropped a PEEP down to 5 and keep the FiO2 at 50%. Discontinue the bicarb infusion and switch this patient to a saline infusion at the rate of 75 mL an hour. Continue IV Zosyn May discontinue the vancomycin Wean off the Cardizem drip and discontinue Switch amiodarone to oral Continue IV heparin and did not commit the patient to long-term anticoagulation yet The patient is receiving enteral feeding through his J-tube. Keep the NG tube in place Significant progress over the past 24 hours. We'll continue to follow. We'll give him a sedation holiday. Condition is critical and the this evaluation was on a more than 30 minutes Time with Patient: Greater than 30
--- NOTE | 2020-02-22 14:31 | P.PN ---
Subjective Acute hypoxic respiratory failure probably secondary to pneumonia 64-year-old the male admitted for pneumonia bilateral, predominantly in the right lower lobes. There is a concern about aspiration patient has been vomiting. Patient does take a modified diet by mouth at home does have a PEG tube in place. Patient the antibiotics were changed to Zosyn which is appropriate. Patient went into respiratory distress on some requirements have gone up because of which patient was transferred to ICU later in the day patient started having A. fib with rapid ventricular rate because of which patient was started on Cardizem and cardiology was consulted. I'm also consulting speech therapy because of his swallowing issues to assess if her appropriate for the patient to be continued on modified diet by mouth. 02/13/2020 Patient clinically looks better patient is being continued on Zosyn continued on IV fluids. Patient will undergo swallow evaluation today speech therapy was consulted. Patient remains nothing by mouth patient is being started on Eliquis for the atrial fibrillation anticoagulation patient is presently on oral amiodarone heart rate is better controlled today. On 02/14/2020 Patient is currently sitting in the chair comfortably. Still having baseline shortness of breath and bibasilar crackles on examination. Currently on high flow oxygen. Chest x-ray showed findings are not significantly changed. Basilar effusions an d associated atelectasis versus pulmonary edema. Patient is being continued on IV antibiotic without Zosyn for possible aspiration and also a dose of Lasix IV was given. Patient has been continued on telemetry monitoring and heart rate is better controlled. Current medications reviewed. 02/15/2020 Patient is currently sitting in the chair comfortably. Saturating around 95% on 6 L oxygen via nasal cannula. Patient was started back on tube feedings today. Patient otherwise denied any complaints of chest pain worsening shortness breath. No nausea vomiting. Denied any abdominal pain. Currently maintaining sinus rhythm. Continued on Eliquis and amiodarone and cardiology is on board. Chest x-ray showed findings are not significantly changed. Basilar effusions and associated atelectasis versus pulmonary edema/pneumonia. Patient is on antibiotics in the form of Zosyn. Laboratory data showed WBC 10.7, hemoglobin 12.8 and platelets of 224 BUN is 18 and creatinine 0.58 Pulmonary and cardiology and general surgery is on board. Current medications reviewed On 02/16/2020 Patient is currently sitting in chair comfortably. Pulse ox about 90s at 3 L via nasal cannula. No fever no chills. Patient is being continued IV antibiotics.tube feedings were started and advance as tolerated. Blood and sputum cultures show no growth. Wound cultures from the abdomen showed Cassie albicans. Continued on dressing changes. No surgical intervention recommended. General surgery has seen the patient. Laboratory data showed WBC 10.0 hemoglobin 12.0 and platelets 253 BUN 16 and creatinine 0.61 patient is being transferred to general medical floor. 02/17/2020 Patient is currently lying in the bed comfortably. Still requiring oxygen at 3 L via nasal cannula. Awake alert oriented but lethargic. No fever no chills. Patient is being continued on antibiotics now for Zosyn. Chest x-ray showed right basilar infiltrates with small bilateral pleural effusions stable from comparison. Patient is tolerating tube feedings at 50 cc/h PEG tube site wound cultures showed Cassie albicans. Patient is being continued on duo nebs and Pulmicort. Heart rate is controlled. Anticoagulation with Eliquis and also on amiodarone and metoprolol 3 times daily. Cardiology and pulmonary is following. Laboratory data showed potassium 3.7, BUN 16 and creatinine 0.6 and hemoglobin 12.3 WBC 9.4 Discussed with his at bedside in detail. 02/18/2020 Patient had a repeat CAT scan which did show the infiltrates that were present before no significant worsening of these infiltrates. Patient cannot take an ything via by mouth but will continue his J-tube feedings. 02/19/2020 Patient was doing well earlier today morning and subsequently went into respiratory failure again presently requiring BiPAP. Repeat chest x-ray did not show any new infiltrate. 02/20/2020 Patient underwent respiratory failure patient is presently intubated patient the is on pressor support as well. Patient coded with asystole for few minutes and was successfully resuscitated after that patient does have pupillary reflexes patient did receive a paralytic agents because of which unable to assess the cough or gag reflex at this time. 02/21/2020 Patient can use to be a mechanical ventilator on propofol drip patient is on assist-control ventilation 50% FiO2 pupils and patient does have bilateral airspace disease bilateral pleural effusions patient remains on Zosyn and vancomycin patient remains on norepinephrine, amiodarone and Cardizem drips. Patient presently has an NG tube and J-tube 02/22/2020 Patient remains on ventilator support patient has significant out from the NG tube barely getting anything to J-tube his prognosis is externally poor will discuss with the family regarding his overall goals of care again. Potassium is extremely low and replaced. Patient remains on pressor support at 5 mcgs per ho ur. Review of systems: Unable to obtain due to his clinical condition All inpatient medications were reviewed and appropriate changes in these medications as dictated in the interval history and assessment and plan. Objective - Vital Signs Vital signs: Vital Signs Temp 97.2 F L 02/22/20 12:00 Pulse 65 02/22/20 13:00 Resp 25 H 02/22/20 13:00 BP 122/76 02/22/20 13:00 Pulse Ox 99 02/22/20 13:00 Intake & Output 02/21/20 02/22/20 02/22/20 18:59 06:59 18:59 Intake Total 2650.300 1722.656 846.189 Output Total 638 860 375 Balance 2012.300 862.656 471.189 Weight 66 kg 65.5 kg 65.5 kg Intake: IV 340 1075 525 0.9 NACL 375 Dextrose 5% in Water 1, 825 150 000 ml @ 75 mls/hr IV . [id number] EDER with Sodium Bicarb (1 Meq/ml) 150 ml Rx#:[id number] Sodium Chloride 0.9% 1, 340 000 ml @ 100 mls/hr IV . Q10H [facility] Rx#:[id number] Vancomycin 1,250 mg In 250 Sodium Chloride 0.9% 250 ml @ 125 mls/hr IVPB Q12H [facility] Rx#:[id number] Intake, IV Titration 2290.300 447.656 311.189 Amount Amiodarone 300 mg In 454.583 250 Dextrose 5% in Water 250 ml @ 0.5 MG/MIN 25 mls/hr IV .Q10H [facility] Rx#: [id number] Dextrose 5% in Water 1, 900 000 ml @ 75 mls/hr IV . [id number] EDER with Sodium Bicarb (1 Meq/ml) 150 ml Rx#:[id number] Diltiazem 125 mg In 100.75 18.5 Sodium Chloride 0.9% 100 ml @ Per Protocol IV .Q0M [facility] Rx#:[id number] Heparin Sod,Pork in 0.45% 55.308 79.156 69.344 NaCl 25,000 unit In 0.45 % NaCl 1 250ml.bag @ 12 UNITS/KG/HR 7.92 mls/hr IV .Q24H [facility] Rx#: [id number] Norepinephrine 32 mg In 141.539 228.307 Sodium Chloride 0.9% 218 ml @ 0.05 MCG/KG/MIN 1. 441 mls/hr IV .Q24H [facility] Rx#:[id number] Piperacillin-Tazobactam 3 200 .375 gm In Sodium Chloride 0.9% 100 ml @ 25 mls/hr IVPB Q8HR [facility] Rx# :[id number] Vancomycin 1,250 mg In 250 Sodium Chloride 0.9% 250 ml @ 125 mls/hr IVPB Q12H [facility] Rx#:[id number] propofoL 1,000 mg In 188.12 100 13.538 Empty Bag 1 bag @ Titrate IV .Q0M [facility] Rx#: [id number] Tube Feeding 20 110 10 Other 90 Output: Gastric Drainage 300 Urine 638 560 375 Other: Voiding Method Indwelling Catheter Indwelling Catheter ABP, PAP, CO, CI - Last Documented Arterial Blood Pressure 120/57 - Exam PHYSICAL EXAMINATION: GENERAL: Patient is intubated sedated HEENT: Pupils are round and equally reacting to light. EOMI. No scleral icterus. No conjunctival pallor. Normocephalic, atraumatic. No pharyngeal erythema. No thyromegaly. CARDIOVASCULAR: S1 and S2 present. No murmurs, rubs, or gallops. PULMONARY: Diffuse bilateral rhonchi and crackles bibasilar ABDOMEN: Soft, nontender, nondistended, normoactive bowel sounds. No palpable or ganomegaly. MUSCULOSKELETAL: No joint swelling or deformity. EXTREMITIES: No cyanosis, clubbing, or pedal edema. NEUROLOGICAL: Patient is intubated sedated SKIN: No rashes. - Labs CBC & Chem 7: 02/22/20 04:20 02/22/20 04:20 Labs: Abnormal Lab Results - Last 24 Hours (Table) 02/21/20 02/21/20 02/21/20 Range/Units 04:28 16:07 18:23 WBC (3.8-10.6) k/uL Hgb (13.0-17.5) gm/dL MCHC (31.0-37.0) g/dL Neutrophils # (1.3-7.7) k/uL Lymphocytes # (1.0-4.8) k/uL PT (9.0-12.0) sec INR (<1.2) APTT 36.7 H (22.0-30.0) sec ABG pH (7.35-7.45) ABG pCO2 (35-45) mmHg ABG pO2 (83-108) mmHg ABG Total CO2 (19-24) mmol/L ABG O2 Saturation (94-97) % Potassium (3.5-5.1) mmol/L Chloride (98-107) mmol/L BUN (9-20) mg/dL Glucose (74-99) mg/dL POC Glucose (mg/dL) 165 H (75-99) mg/dL Hemoglobin A1c 6.1 H (4.0-6.0) % Calcium (8.4-10.2) mg/dL 02/21/20 02/21/20 02/22/20 Range/Units 23:45 23:49 01:26 WBC (3.8-10.6) k/uL Hgb (13.0-17.5) gm/dL MCHC (31.0-37.0) g/dL Neutrophils # (1.3-7.7) k/uL Lymphocytes # (1.0-4.8) k/uL PT (9.0-12.0) sec INR (<1.2) APTT 31.8 H (22.0-30.0) sec ABG pH (7.35-7.45) ABG pCO2 (35-45) mmHg ABG pO2 (83-108) mmHg ABG Total CO2 (19-24) mmol/L ABG O2 Saturation (94-97) % Potassium (3.5-5.1) mmol/L Chloride (98-107) mmol/L BUN (9-20) mg/dL Glucose (74-99) mg/dL POC Glucose (mg/dL) 184 H 165 H (75-99) mg/dL Hemoglobin A1c (4.0-6.0) % Calcium (8.4-10.2) mg/dL 02/22/20 02/22/20 02/22/20 Range/Units 04:20 04:20 04:20 WBC 23.9 H (3.8-10.6) k/uL Hgb 12.0 L (13.0-17.5) gm/dL MCHC 30.3 L (31.0-37.0) g/dL Neutrophils # 22.4 H (1.3-7.7) k/uL Lymphocytes # 0.9 L (1.0-4.8) k/uL PT 15.3 H (9.0-12.0) sec INR 1.6 H (<1.2) APTT (22.0-30.0) sec ABG pH (7.35-7.45) ABG pCO2 (35-45) mmHg ABG pO2 (83-108) mmHg ABG Total CO2 (19-24) mmol/L ABG O2 Saturation (94-97) % Potassium 2.6 L* (3.5-5.1) mmol/L Chloride 110 H (98-107) mmol/L BUN 26 H (9-20) mg/dL Glucose 198 H (74-99) mg/dL POC Glucose (mg/dL) (75-99) mg/dL Hemoglobin A1c (4.0-6.0) % Calcium 7.0 L (8.4-10.2) mg/dL 02/22/20 02/22/20 02/22/20 Range/Units 04:58 05:49 07:55 WBC (3.8-10.6) k/uL Hgb (13.0-17.5) gm/dL MCHC (31.0-37.0) g/dL Neutrophils # (1.3-7.7) k/uL Lymphocytes # (1.0-4.8) k/uL PT (9.0-12.0) sec INR (<1.2) APTT 46.4 H (22.0-30.0) sec ABG pH 7.54 H (7.35-7.45) ABG pCO2 30 L (35-45) mmHg ABG pO2 146 H (83-108) mmHg ABG Total CO2 26 H (19-24) mmol/L ABG O2 Saturation 99.7 H (94-97) % Potassium (3.5-5.1) mmol/L Chloride (98-107) mmol/L BUN (9-20) mg/dL Glucose (74-99) mg/dL POC Glucose (mg/dL) 174 H (75-99) mg/dL Hemoglobin A1c (4.0-6.0) % Calcium (8.4-10.2) mg/dL 02/22/20 Range/Units 12:29 WBC (3.8-10.6) k/uL Hgb (13.0-17.5) gm/dL MCHC (31.0-37.0) g/dL Neutrophils # (1.3-7.7) k/uL Lymphocytes # (1.0-4.8) k/uL PT (9.0-12.0) sec INR (<1.2) APTT (22.0-30.0) sec ABG pH (7.35-7.45) ABG pCO2 (35-45) mmHg ABG pO2 (83-108) mmHg ABG Total CO2 (19-24) mmol/L ABG O2 Saturation (94-97) % Potassium (3.5-5.1) mmol/L Chloride (98-107) mmol/L BUN (9-20) mg/dL Glucose (74-99) mg/dL POC Glucose (mg/dL) 102 H (75-99) mg/dL Hemoglobin A1c (4.0-6.0) % Calcium (8.4-10.2) mg/dL Microbiology - Last 24 Hours (Table) 02/20/20 00:00 Gram Stain - Final Sputum Sputum Culture - Final Klebsiella pneumoniae 02/19/20 16:59 Blood Culture - Preliminary Blood No Growth after 48 hours Assessment and Plan Plan: -Acute hypoxic respiratory failure secondary to pneumonia predominantly in the right. patient does have pleural effusions on both sides. Patient is on Zosyn at this time there is a concern for aspiration. Patient is presently intubated on assist-control ventilation please referred to pulmonology documentation for went settings. -Septic shock: Patient is presently on norepinephrine which will be continued -Paraxysmal Atrial fibrillation with rapid ventricular rate Patient is being switched to Eliquis. Patient is presently on amiodarone as well as Cardizem, patient present heart rate is controlled still in A. fib -gastroesophageal reflux disease, patient said J-tube feedings were reinitiated and patient has significant output from the NG tube -Hypertension -benign prostatic hypertrophy -History of renal cancer and esophageal cancer with dysphagia and a J-tube . -History of cerebral aneurysm. -KAROL His overall prognosis is extremely poor
[2020-02-22] MEDS ORDERED: WARFARIN 3 MG TAB PO ONE (18:00)
[2020-02-22 18:36] LABS: Glucose,Whole Blood 90 mg/dL (75-99)
[2020-02-22] MEDS ORDERED: Potassium Replacement Protocol 1 EACH MISC MISCELLANE PRN (18:39)
[2020-02-22] MEDS ORDERED: POTASSIUM BICARBONATE/CIT AC 20 MEQ TABLET.EFF NG-TUBE SCH (19:00)
[2020-02-22 23:53] LABS: Glucose,Whole Blood 92 mg/dL (75-99)
[2020-02-23] MEDS: METOCLOPRAMIDE 5 MG/ML 2 ML VIAL IVP SCH ×5 (00:44→23:25)
[2020-02-23] MEDS: SODIUM CHLORIDE 0.9% 1,000 ML IV SCH ×2 (00:44→12:59)
[2020-02-23] MEDS: INSULIN ASPART (NovoLOG) 100 UNIT/ML VIAL SQ SCH ×5 (01:11→23:30)
[2020-02-23] MEDS: PIPERACILLIN-TAZOBACTAM 3.375 GM in SODIUM CHLORIDE 0.9% 100 ML IVPB SCH ×4 (01:12→23:25)
[2020-02-23] MEDS: VANCOMYCIN 1,250 MG in SODIUM CHLORIDE 0.9% 250 ML IVPB SCH (01:57)
[2020-02-23 05:01] LABS: Basophils % (A) 0 %; Eosinophils # (A) 0.3 k/uL (0-0.7); Eosinophils % (A) 2 %; HCT 36.4 % (39.0-53.0); HGB 11.6 gm/dL (13.0-17.5); Hypochromasia Slight; Lymphocytes # (A) 0.7 k/uL (1.0-4.8); Lymphocytes % (A) 6 %; MCH 28.8 pg (25.0-35.0); MCV 90.1 fL (80.0-100.0); Mean Platelet Volume 8.6; Monocytes # (A) 0.3 k/uL (0-1.0); Monocytes % (A) 3 %; Neutrophils # (A) 11.2 k/uL (1.3-7.7); Neutrophils % (A) 89 %; Platelet Count 235 k/uL (150-450); RBC 4.04 m/uL (4.30-5.90); RDW 14.5 % (11.5-15.5); WBC 12.6 k/uL (3.8-10.6)
[2020-02-23 05:07] LABS: INR 1.6 (<1.2); Prothrombin Time 16.1 sec (9.0-12.0)
[2020-02-23 05:13] LABS: African American GFR (CKD) >90 (>60 ml/min/1.73 sqM); Anion Gap 2 mmol/L; Blood Urea Nitrogen 18 mg/dL (9-20); Calcium 6.9 mg/dL (8.4-10.2); Carbon Dioxide 28 mmol/L (22-30); Chloride 111 mmol/L (98-107); Glucose 102 mg/dL (74-99); Non-African American GFR(CKD) >90 (>60 ml/min/1.73 sqM); Potassium 3.6 mmol/L (3.5-5.1); Sodium 141 mmol/L (137-145)
[2020-02-23] MEDS ORDERED: POTASSIUM BICARBONATE/CIT AC 20 MEQ TABLET.EFF PO ONE (05:24)
[2020-02-23] MEDS: HEPARIN SOD,PORK IN 0.45% NACL 25,000 UNIT in 0.45% NACL 1 250ML.BAG IV SCH (05:42)
[2020-02-23 05:46] LABS: ABG Base Excess 3.4 mmol/L; ABG HCO3 26 mmol/L (21-25); ABG Oxygen Saturation 98.4 % (94-97); ABG PCO2 33 mmHg (35-45); ABG PH 7.51 (7.35-7.45); ABG PO2 102 mmHg (83-108); ABG TCO2 28 mmol/L (19-24); Allen Test Performed? Yes
[2020-02-23 06:14] LABS: Glucose,Whole Blood 96 mg/dL (75-99)
--- NOTE | 2020-02-23 07:05 | XR ---
EXAMINATION TYPE: XR chest 1V portable DATE OF EXAM: 02/23/2020 COMPARISON: 02/22/2020 HISTORY: Shortness of breath FINDINGS: There are bilateral pleural effusions with cardiomegaly and bibasilar infiltrate. There is a diffuse interstitial pattern. NG tube is seen to the level of the GE junction. HYDROGEN CELL TENDER shunt catheter noted. Cent ral line and ET tube stable. IMPRESSION: 1. There is progressive pleural-parenchymal changes correlate for CHF. Otherwise consider diffuse pne umonia.
[2020-02-23] MEDS: IPRATROPIUM-ALBUTEROL 3 ML NEB INHALATION SCH ×4 (07:41→19:23)
[2020-02-23] MEDS ORDERED: FUROSEMIDE 10 MG/ML 4 ML VIAL IV STA (07:52)
[2020-02-23] MEDS: PANTOPRAZOLE 40 MG/10 ML VIAL IVP SCH (08:38)
[2020-02-23] MEDS: AMIODARONE 200 MG TAB PO SCH ×2 (08:39→19:46)
[2020-02-23] MEDS: CHLORHEXIDINE GLUCONATE 15 ML CUP MUCOUS MEM SCH ×2 (08:39→19:46)
[2020-02-23] MEDS ORDERED: VANCOMYCIN TROUGH DUE 1 EACH MISC MISCELLANE ONE (09:00)
--- NOTE | 2020-02-23 09:08 | P.PN ---
Subjective Progress Note Date: 02/23/20 This is a pleasant 64-year-old male past medical history significant for paroxysmal atrial fibrillation on long-term anticoagulation, esophageal cancer with J-tube in place, hypertension and brain aneurysm in the past. He follows in the office with Dr. Claros. Patient remains on mechanical ventilation with PEEP of 5 and FiO2 50%. He is on oral amiodarone with normal sinus rhythm with PACs. Coumadin was discontinued by ICU team and patient remains on heparin drip for anticoagulation. No bleed noted from OG tube. OG tube to suction and tube feedings from J-tube. GENERAL: Comfortable in bed on mechanical ventilation. NECK: Supple without JVD or thyromegaly. LUNGS: Respiration equal and unlabored. Diminished bilaterally. HEART: Regular rate and rhythm without murmurs, rubs or gallops. S1 and S2 heard. EXTREMITIES: Normal range of motion, diffuse edema noted, nonpitting. No clubbing or cyanosis. Peripheral pulses intact. ASSESSMENT Paroxysmal atrial fibrillation on Eliquis for anticoagulation currently maintaining sinus mechanism Acute hypoxic respiratory failure requiring mechanical ventilation, related to aspiration Asystole arrest, possibly related to hypoxic episode. No further bradycardic episodes noted Aspiration pneumonia Lactic acidosis, improved Leukocytosis improving Acute systolic heart failure s/p cardiac arrest New onset cardiomyopathy with ejection fraction 40-45%, likely tachyarrhythmia induced History of esophageal cancer status post J-tube placement Hypertension History of brain aneurysm with [employer]ICIAN shunt PLAN Continue oral amiodarone 400 mg BID. Taper per protocol. Continue heparin drip per ICU. Eliquis is too expensive for patient and would recommend transition to Coumadin when able. Chest x-ray with continued right lower lobe infiltrate likely related to aspiration pneumonia however diffuse interstitial pattern concerning for worsening volume overload. Trial Lasix and monitor response. Objective - Vital Signs Vital signs: Vital Signs Temp 97.4 F L 02/23/20 08:00 Pulse 83 02/23/20 08:15 Resp 27 H 02/23/20 08:15 BP 127/83 02/23/20 08:15 Pulse Ox 95 02/23/20 08:15 Intake & Output 02/22/20 02/23/20 02/23/20 18:59 06:59 18:59 Intake Total 2277.678 1827.548 217.631 Output Total 775 870 158 Balance 1502.678 957.548 59.631 Weight 65.5 kg 74 kg Intake: IV 1900 1443 211 0.9 NACL 750 135 10 0.9 Normal Saline as 33 6 pressure bag @ 3mL/hr Dextrose 5% in Water 1, 150 000 ml @ 75 mls/hr IV . [id number] EDER with Sodium Bicarb (1 Meq/ml) 150 ml Rx#:[id number] Piperacillin-Tazobactam 3 100 100 .375 gm In Sodium Chloride 0.9% 100 ml @ 25 mls/hr IVPB Q8HR [facility] Rx# :[id number] Sodium Chloride 0.9% 1, 825 95 000 ml @ 10 mls/hr IV . Q24H [facility] Rx#:[id number] Vancomycin 1,250 mg In 250 Sodium Chloride 0.9% 250 ml @ 125 mls/hr IVPB Q8H [facility] Rx#:[id number] potassium 200 vancomycin 500 zosyn 300 100 Intake, IV Titration 357.678 384.548 6.631 Amount Heparin Sod,Pork in 0.45% 69.344 204.512 NaCl 25,000 unit In 0.45 % NaCl 1 250ml.bag @ 12 UNITS/KG/HR 7.92 mls/hr IV .Q24H [facility] Rx#: [id number] Norepinephrine 32 mg In 235.922 45.452 6.631 Sodium Chloride 0.9% 218 ml @ 0.05 MCG/KG/MIN 1. 441 mls/hr IV .Q24H [facility] Rx#:[id number] propofoL 1,000 mg In 52.412 134.584 Empty Bag 1 bag @ Titrate IV .Q0M [facility] Rx#: [id number] Tube Feeding 20 Output: Gastric Drainage 150 150 50 Urine 625 720 108 Other: Voiding Method Indwelling Catheter Indwelling Catheter ABP, PAP, CO, CI - Last Documented Arterial Blood Pressure 140/72 - Labs CBC & Chem 7: 02/23/20 04:40 02/23/20 04:40 Labs: Abnormal Lab Results - Last 24 Hours (Table) 02/22/20 02/23/20 02/23/20 Range/Units 12:29 04:40 04:40 WBC 12.6 H (3.8-10.6) k/uL RBC 4.04 L (4.30-5.90) m/uL Hgb 11.6 L (13.0-17.5) gm/dL Hct 36.4 L (39.0-53.0) % Neutrophils # 11.2 H (1.3-7.7) k/uL Lymphocytes # 0.7 L (1.0-4.8) k/uL PT (9.0-12.0) sec INR (<1.2) APTT (22.0-30.0) sec ABG pH (7.35-7.45) ABG pCO2 (35-45) mmHg ABG HCO3 (21-25) mmol/L ABG Total CO2 (19-24) mmol/L ABG O2 Saturation (94-97) % Chloride 111 H (98-107) mmol/L Creatinine 0.58 L (0.66-1.25) mg/dL Glucose 102 H (74-99) mg/dL POC Glucose (mg/dL) 102 H (75-99) mg/dL Calcium 6.9 L (8.4-10.2) mg/dL 02/23/20 02/23/20 02/23/20 Range/Units 04:40 04:40 05:42 WBC (3.8-10.6) k/uL RBC (4.30-5.90) m/uL Hgb (13.0-17.5) gm/dL Hct (39.0-53.0) % Neutrophils # (1.3-7.7) k/uL Lymphocytes # (1.0-4.8) k/uL PT 16.1 H (9.0-12.0) sec INR 1.6 H (<1.2) APTT 33.5 H (22.0-30.0) sec ABG pH 7.51 H (7.35-7.45) ABG pCO2 33 L (35-45) mmHg ABG HCO3 26 H (21-25) mmol/L ABG Total CO2 28 H (19-24) mmol/L ABG O2 Saturation 98.4 H (94-97) % Chloride (98-107) mmol/L Creatinine (0.66-1.25) mg/dL Glucose (74-99) mg/dL POC Glucose (mg/dL) (75-99) mg/dL Calcium (8.4-10.2) mg/dL Microbiology - Last 24 Hours (Table) 02/19/20 16:59 Blood Culture - Preliminary Blood No Growth after 72 hours 02/20/20 00:00 Gram Stain - Final Sputum Sputum Culture - Final Klebsiella pneumoniae
[2020-02-23] MEDS ORDERED: FUROSEMIDE 10 MG/ML 2 ML VIAL IV SCH (10:00)
--- NOTE | 2020-02-23 11:44 | P.PN ---
Subjective Progress Note Date: 02/23/20 This is a 64-year-old white male patient of Dr. Claude Deluna that was admitted through the emergency department on 02/11/2020 when he came in for evaluation of shortness of breath, hypoxemia. Patient has a known history of esophageal cancer status post chemotherapy and NG tube placement, has a known history of COPD and CHF. Patient was started on empiric antibiotics in the form of Zosyn, nebulized bronchodilators, and diuretics, did require high flow oxygen per Airvo, which was discontinued yesterday, patient is currently on 6 L of oxygen per high flow nasal cannula with a pulse ox of 93-95%, his tube feedings were held yesterday related to some leaking around the bolster, surgical services were consulted and Dr. Styles adjusted the bolster, and tube feedings were resumed today, with TwoCal HN currently at 10 ML per hour. Of note previously patient was receiving tube feedings and consuming some nausea fluids by mouth. He is currently strict nothing by mouth, and receiving all of his nutrition via his J-tube. He is sounding much less congested today, bronchospastic, breathing easier, more comfortably, he sitting up in the chair. His vital signs are stable, his been afebrile, hemodynamically stable, 0.9 normal saline infusing at a rate of 20 ML per hour, yesterday he received a dose of Lasix, and he produces 2.8 L and urine output, he is -1.4 L over last 24 hours, indwelling catheter is in place. On admission patient was in A. fib with RVR, he is currently in sinus mechanism, he is on oral amiodarone and Eliquis for anticoagulation, cardiology services are following. Today's chest x-ray has been reviewed, showing stable diffuse pleural parenchymal disease related to aspiration pneumonia. Today's labs have been reviewed, showing white blood cell, 10.7, hemoglobin of 12.8, sodium is 140, potassium is 3.4, the rest of electrolytes were within normal limits, BUN is 18 creatinine 0.58. All microbiology has shown no growth. He is on Zosyn for antibiotic coverage. The patient is seen today 02/16/2020 in follow-up in the intensive care unit. He is currently resting quite comfortably in bed. Awake and alert in no acute distress. Maintaining O2 saturations in the 90s on 3 L/m per nasal cannula. 0.9 normal saline at 20 ML's per hour. He is receiving nourishment via PEG tube with TwoCal HN at 30 MLS per hour with a goal of 40 ML's per hour. White count 10.0. Hemoglobin 12.0. Sodium 138. Potassium 4.2. Creatinine 0.61. Blood and wound and sputum cultures reveal no growth. He is currently on DuoNeb inhalations, Pulmicort inhalations, antibiotics in the form of Zosyn. The patient is seen today 02/17/2020 in follow-up in the intensive care unit. He is currently resting comfortably in bed. Awake and alert in no acute distress. He is maintaining good O2 saturations in the 90s on 3 L/m per nasal cannula. Chest x-ray reveals right basilar infiltrate with small bilateral pleural effusions. Stable compared to previous. 0.9 normal saline at 20 ML's per hour. Currently receiving TwoCal HN at 40 MLs per hour with a goal of 50 ML's per hour. Blood culture reveals no growth. Sputum culture reveals no growth. Abdomen reveals Cassie. White count 9.4. Hemoglobin 12.3. Sodium 142. Potassium 3.7. Creatinine 0.60. He remains on Zosyn. Anticoagulated with Eliquis. On 02/18/2020 and seeing the patient for a follow-up in the intensive care unit. The patient is having some difficulties with his J-tube. This was found to be clotted again and surgical consultation was again obtained in regards to this problem. In terms of his breathing, is breathing comfortably at 3 L of oxygen by nasal cannula with a pulse of 74%. He is on IV fluids with normal saline at rate of 20 mL an hour. He is in normal sinus rhythm. His chest x-ray still showing increased opacity in lung bases bilaterally and we opted to proceed with a CAT scan of the chest to characterized his abnormalities. The patient has no fever. The patient has no chills. The patient is taking some material orally for pleasure. I reviewed the CAT scan of the chest that was done this morning. The CAT scan showed small better pleural effusion. There is a limited consoli dation process in the left lower lobe. Some limited nodularity is also noted and this appears segment of the left lower lobe. The patient has postsurgical changes with previous esophagectomy and gastric pull. No evidence of any lymphadenopathy. No evidence of any cardiomegaly. 02/19/2020, the patient is resting comfortably in bed and oxidation is slightly improved and currently is on 2 L about 2 by nasal cannula. His current pulse ox is 92%. A CAT scan of the chest was obtained yesterday and showed no significant pleural effusion. There was a consolidative process in the left lower lobe unchanged compared to the previous examination. There was also a linear atelectasis in the right lower lobe. There is also nodularity identified in the right lower lobe. Addition the nodularity in this appears segment of the left lower lobe. The previously noted nodules in the left lower lobe are less conspicuous and there is small bilateral pleural effusions bilaterally. The patient is postop esophagectomy and gastric pull-through. He has no fever. No chills. The issues and a competition related to J-tube feeding has been dealt with and the patient's catheter has been flushed appropriately by the nursing staff and the patient is currently receiving enteral feeding vi the jejunostomy tube. The patient is also in atrial fibrillation. Anticoagulation will be resumed and the patient be started back on Eliquis for now. No respiratory distress. Awake and alert and following commands and answering questions. 02/20/2020, the patient's condition is obviously decompensated. Since yesterday afternoon, the patient developed progressive worsening shortness of breath and late at night, the patient went to respiratory failure requiring intubation and mechanical ventilation. Post intubation, the patient had a brief cardiopulmonary arrest where he became bradycardic and then went into cardiac arrest where he was resuscitated in the intensive care unit and there was return of spontaneous circulation. This morning, the patient is intubated on a mechanical ventilator. I saw him sedated on propofol at 50 g per KG per minute. He is an assist-control mode of ventilator at the rate of 28 with a tidal volume of 600 and FiO2 of 1% with a PEEP of 10. Ventilator adjustments was done earlier this morning and the patient was switched to ACC/smoking. Subsequent blood gases showed improvement and acid base status and the most recent blood gases showed a pH of 7.37 with a pCO2 of 26 and pO2 of 231. FiO2 was dropped down to 50%. The patient is significantly hypotensive and hemodynamically unstable. He was given a total of 2 L of IV fluid and norepinephrine infusion is being titrated to maintain a mean arterial pressure above 65. He is afebrile. White cell count is up to 21. Lactic acid level is at 2.8. Repeat chest x-ray showed some lower lobe pulmonary filtration. Note that the patient has a gastric pull related to his previous history of esophageal cancer. Nevertheless, the possibility of small better pleural effusion and bibasilar airspace disease in the lung bases cannot be completely ruled out. The patient also went into atrial fibrillation with rapid response. He was started on amiodarone drip for rate control and currently is running at 0.5 mg per minute. A triple lumen catheter was established today for IV access and hemodynamic instability. Note that post intubation, NG tube was inserted and the patient had a total of 700 mL of gastric output. The output was somewhat bloody. Nevertheless, there is no clear indication for a GI bleed. Hemoglobin was as high as 13.7 and dropped down to 10.3. There may be a component of mild upper GI bleeding. His INR is at 2 with a PT of 19.2. Anticoagulation was placed on hold for now. Vitamin K will be given. 02/21/2020, the patient remains intubated on a mechanical ventilator. The pat ient's is on propofol at 30 g per KG per minute. He is well sedated. Earlier this morning he was an assist-control mode at the rate of 28 with a tidal volume of 600 and FiO2 of 50% with a PEEP of 10. The chest x-ray shows no significant changes compared to earlier films. The blood gas showed a pH of 7.36 with a pCO2 of 27 and pO2 of 121. The patient about the pleural effusions and bilateral air space disease in the lung bases without any significant change. The patient remains on accommodation Zosyn and vancomycin. He is afebrile. White cell count is up to 31. Meanwhile, he remains hemodynamically unstable. Despite aggressive the being resuscitated with IV fluids, the patient is still requiring pressors. He remains on norepinephrine infusion at 50 g per minute. He is also on normal saline at the rate of 100 mL an hour. Noted the patient is still atrial fibrillation. He was covered with an amiodarone drip and amiodarone is still running at 0.5 mg per minute. Cardizem was also added for better rate control at the rate of 50 mg an hour. He is still on and off tachycardic. On his blood work, he continues to show a component of non-anion gap metabolic acidosis. The patient's serum bicarb is at 16 with an anion gap of 8. BUN is at 41 with a creatinine of 1.2. The neck fluid balance is +3.7 L for the past 24 hours. The patient has no ongoing gastric output. He remains nothing by mouth. The J-tube is intact and an NG tube was also in place. 02/22/2020, the patient remains intubated on a mechanical ventilator. Nevertheless, much more comfortable and synchronous with the mechanical ventilator on today's evaluation. The patient remained on assist control at the rate of 24 with a tidal volume of 600 and FiO2 of 50% with a PEEP of 8. The blood gases shows a component of respiratory alkalosis. The pH is at 7.54 pCO2 of 30 and pO2 of 146. Chest x-ray shows no interval changes and the patient has bilateral lower lobe pulmonary infiltrates and effusion and a large intrathoracic stomach due to gastric pull-through. The patient has no major orotracheal secretions. He was started on enteral feeding through his J-tube and the patient has an NG tube in place and output from the NG tube is been in the order of 100-200 mL of gastric with the over the past 24 hours. Hemodynamically, he is doing better. His A. fib is under better control. The patient remains on a amiodarone drip at 0.5 mg per minute. The patient is also on a lower dose of norepinephrine infusion which is in the process of being weaned off and currently is on 0.15 mg per KG per minute. The patient is on Cardizem drip at 15 mg an hour this was cut down to 10 minute process of cutting it down further. The patient remains on IV heparin drip. The patient is also on a bicarb infusion drip and the bicarb can be discontinued as the patient's serum bicarb has normalized and subsequent to 24 and the patient developed a component of alkalosis which is essentially respiratory alkalosis and his blood gases. The sputum analysis has shown Klebsiella and the patient is still on a combination of Zosyn and vancomycin. The white cell count is improving is currently down to 23.9. The potassium level needs to be replaced as low at 2.6. Renal function is stable for now. No other significant issues overnight. The patient is somewhat improved since yesterday. A quick sedation holiday will be given as the patient is currently on propofol running at 20 g per KG per minute. On 02/23/2020, the patient is being seen for a follow-up. This morning the patient's upper quadrant 30 mg per KG per minute. I was told by nursing staff the patient was given a sedation holiday yesterday following that the patient aroused and he was able to follow some commands. In general, the patient is doing well. He is hemodynamically stable. He was taken gradually off levo fed and the norepinephrine infusion is currently running at 0.1 g per KG per minute. He is also on normal saline at the rate of 75 mL an hour. Doing well. No specific issues overnight. On a mechanical ventilator, he remains on assist control mode at the rate of 14 with a tidal volume of 450 and FiO2 of 50% with a PEEP of 5. The patient's blood gases from today showed a pH of 7.51 with a pCO2 of 32 and pO2 of 11. Chest x-ray shows increased interstitial markings bilaterally along with a component of pulmonary edema in addition to gastric pull-through and lower lobe consolidations and effusions that are present on previous evaluations. I feel that the patient is going into some degree of fluid overload. The neck fluid balance is been +2.8 L over the past 24 hours. The sputum culture was positive for Klebsiella. The patient is afebrile. No other issues for now. J-tube feeding will be started today. NG tube in place and output has been only 150 mL over the past 12 hours. The patient is covered with Zosyn and vancomycin and the vancomycin will be discontinued. Objective - Vital Signs Vital signs: Vital Signs Temp 97.4 F L 02/23/20 08:00 Pulse 87 02/23/20 11:00 Resp 21 02/23/20 11:00 BP 107/68 02/23/20 10:15 Pulse Ox 93 L 02/23/20 11:00 Intake & Output 02/22/20 02/23/20 02/23/20 18:59 06:59 18:59 Intake Total 2277.678 1827.548 296.128 Output Total 792 919 1435 Balance 1502.678 957.548 -1631.872 Weight 65.5 kg 74 kg 74 kg Intake: IV 1900 1443 250 0.9 NACL 750 135 10 0.9 Normal Saline as 33 15 pressure bag @ 3mL/hr Dextrose 5% in Water 1, 150 000 ml @ 75 mls/hr IV . [id number] [facility] with Sodium Bicarb (1 Meq/ml) 150 ml Rx#:[id number] Piperacillin-Tazobactam 3 100 100 .375 gm In Sodium Chloride 0.9% 100 ml @ 25 mls/hr IVPB Q8HR [facility] Rx# :[id number] Sodium Chloride 0.9% 1, 825 125 000 ml @ 10 mls/hr IV . Q24H [facility] Rx#:[id number] Vancomycin 1,250 mg In 250 Sodium Chloride 0.9% 250 ml @ 125 mls/hr IVPB Q8H [facility] Rx#:[id number] potassium 200 vancomycin 500 zosyn 300 100 Intake, IV Titration 357.678 384.548 46.128 Amount Heparin Sod,Pork in 0.45% 69.344 204.512 NaCl 25,000 unit In 0.45 % NaCl 1 250ml.bag @ 12 UNITS/KG/HR 7.92 mls/hr IV .Q24H [facility] Rx#: [id number] Norepinephrine 32 mg In 235.922 45.452 10.013 Sodium Chloride 0.9% 218 ml @ 0.05 MCG/KG/MIN 1. 441 mls/hr IV .Q24H [facility] Rx#:[id number] propofoL 1,000 mg In 52.412 134.584 36.115 Empty Bag 1 bag @ Titrate IV .Q0M [facility] Rx#: [id number] Tube Feeding 20 Output: Gastric Drainage 150 150 200 Urine [id number] Other: Voiding Method Indwelling Catheter Indwelling Catheter Indwelling Catheter ABP, PAP, CO, CI - Last Documented Arterial Blood Pressure 108/59 - Exam GENERAL EXAM: Alert, very pleasant, frail-looking 64-year-old male patient, and the patient is sedated with propofol and the patient's calm and comfortable intubated on a mechanical ventilator. Orogastric and orotracheal tube are both in place. HEAD: Normocephalic/atraumatic. EYES: Normal reaction of pupils, equal size. Conjunctiva pink, sclera white. NOSE: Clear with pink turbinates. THROAT: No erythema or exudates. NECK: No masses, no JVD, no thyroid enlargement, no adenopathy. The patient has a left subclavian triple-lumen catheter in place. CHEST: No chest wall deformity. Symmetrical expansion. LUNGS: Equal air entry with scattered wheezes and rhonchi, improved CVS: The patient is tachycardic and there rate and rhythm is irregular consistent with atrial fibrillation with rapid ventricular response. and rhythm, normal S1 and S2, no gallops, no murmurs, no rubs ABDOMEN: Soft, nontender. No hepatosplenomegaly, normal bowel sounds, no guarding or rigidity. J tube is in place, with the tube feedings infusing, and the patient is tube feeds are currently on hold. EXTREMITIES: No clubbing, no edema, no cyanosis, 2+ pulses and upper and lower extremities. MUSCULOSKELETAL: Muscle strength and tone normal. SPINE: No scoliosis or deformity SKIN: No rashes CENTRAL NERVOUS SYSTEM: The patient is currently sedated on propofol - Labs CBC & Chem 7: 02/23/20 04:40 02/23/20 04:40 Labs: Abnormal Lab Results - Last 24 Hours (Table) 02/22/20 02/23/20 02/23/20 Range/Units 12:29 04:40 04:40 WBC 12.6 H (3.8-10.6) k/uL RBC 4.04 L (4.30-5.90) m/uL Hgb 11.6 L (13.0-17.5) gm/dL Hct 36.4 L (39.0-53.0) % Neutrophils # 11.2 H (1.3-7.7) k/uL Lymphocytes # 0.7 L (1.0-4.8) k/uL PT (9.0-12.0) sec INR (<1.2) APTT (22.0-30.0) sec ABG pH (7.35-7.45) ABG pCO2 (35-45) mmHg ABG HCO3 (21-25) mmol/L ABG Total CO2 (19-24) mmol/L ABG O2 Saturation (94-97) % Chloride 111 H (98-107) mmol/L Creatinine 0.58 L (0.66-1.25) mg/dL Glucose 102 H (74-99) mg/dL POC Glucose (mg/dL) 102 H (75-99) mg/dL Calcium 6.9 L (8.4-10.2) mg/dL 02/23/20 02/23/20 02/23/20 Range/Units 04:40 04:40 05:42 WBC (3.8-10.6) k/uL RBC (4.30-5.90) m/uL Hgb (13.0-17.5) gm/dL Hct (39.0-53.0) % Neutrophils # (1.3-7.7) k/uL Lymphocytes # (1.0-4.8) k/uL PT 16.1 H (9.0-12.0) sec INR 1.6 H (<1.2) APTT 33.5 H (22.0-30.0) sec ABG pH 7.51 H (7.35-7.45) ABG pCO2 33 L (35-45) mmHg ABG HCO3 26 H (21-25) mmol/L ABG Total CO2 28 H (19-24) mmol/L ABG O2 Saturation 98.4 H (94-97) % Chloride (98-107) mmol/L Creatinine (0.66-1.25) mg/dL Glucose (74-99) mg/dL POC Glucose (mg/dL) (75-99) mg/dL Calcium (8.4-10.2) mg/dL Microbiology - Last 24 Hours (Table) 02/19/20 16:59 Blood Culture - Preliminary Blood No Growth after 72 hours 02/20/20 00:00 Gram Stain - Final Sputum Sputum Culture - Final Klebsiella pneumoniae Assessment and Plan Plan: 1 Acute hypoxemic respiratory failure , most likely secondary to aspiration pneumonia with bibasilar infiltrates, and the patient had to be intubated and placed on a mechanical ventilator. The sputum culture showing Klebsiella pneumoniae and the patient remains on IV Zosyn. Follow-up chest x-ray from today shows increased interstitial markings bilaterally along with a possibility of a component of CHF and fluid overload. Nevertheless, the oxygenation is stable for now. 2 shock, and the patient is profoundly hypotensive probably related to a co mponent of intravascular volume depletion and septic shock. The process of been weaned off and the patient is currently on a minimal dose of levothyroxine 0.1 g per KG per minute and I'm hoping to wean it up further on today's evaluation. 3 atrial fibrillation with rapid ventricular response, and the heart rate response is improved considerably. The patient is currently off the Cardizem drip. The patient is taking oral amiodarone 400 mg by mouth twice a day. The patient is on IV heparin. Rate is controlled for now. 4 suspect upper GI bleed, currently nothing by mouth and the J-tube feeding has been placed restarted and there is no evidence of any ongoing GI bleed and the patient's hemoglobin is stable for now. 5 History of esophageal cancer, status post gastric pull and the patient has gastroparesis and the patient is being fed through a J-tube. 6 leukocytosis secondary to above , improving, and the white cell count is down to 12.6 7 History of seizure disorder 8 History of brain aneurysm, and the patient had a [employer] aneurysm rupture 25 years ago an and comprehension and he neglectson the left side and has history of seizures 9 GERD/reflux 10 Sleep apnea syndrome, does not utilize a CPAP machine 11 previous history of a left heel wound, treated at the wound center 12 non-anion gap metabolic acidosis, recovered 13 difficult mobility and the patient wheelchair Plan Continue ventilator support Sedation holiday Check weaning parameters Wean off norepinephrine infusion discontinue if possible Discontinue the vancomycin Continue enteral feeding through the J-tube and keep NG tube in place IV heparin Rule out committed to long-term anticoagulation yet. The patient may ultimately need a PICC line by Tuesday. Cardizem drip has been discontinued IV fluids to KVO Lasix mg IV push 1 We'll continue to follow Condition is critical and the this evaluation was on a more than 30 minutes Time with Patient: Greater than 30
[2020-02-23 11:59] LABS: Glucose,Whole Blood 91 mg/dL (75-99)
[2020-02-23] MEDS ORDERED: POTASSIUM BICARBONATE/CIT AC 20 MEQ TABLET.EFF NG-TUBE SCH (13:00)
--- NOTE | 2020-02-23 14:27 | P.PN ---
Subjective Acute hypoxic respiratory failure probably secondary to pneumonia 64-year-old the male admitted for pneumonia bilateral, predominantly in the right lower lobes. There is a concern about aspiration patient has been vomiting. Patient does take a modified diet by mouth at home does have a PEG tube in place. Patient the antibiotics were changed to Zosyn which is appropriate. Patient went into respiratory distress on some requirements have gone up because of which patient was transferred to ICU later in the day patient started having A. fib with rapid ventricular rate because of which patient was started on Cardizem and cardiology was consulted. I'm also consulting speech therapy because of his swallowing issues to assess if her appropriate for the patient to be continued on modified diet by mouth. 02/13/2020 Patient clinically looks better patient is being continued on Zosyn continued on IV fluids. Patient will undergo swallow evaluation today speech therapy was consulted. Patient remains nothing by mouth patient is being started on Eliquis for the atrial fibrillation anticoagulation patient is presently on oral amiodarone heart rate is better controlled today. On 02/14/2020 Patient is currently sitting in the chair comfortably. Still having baseline shortness of breath and bibasilar crackles on examination. Currently on high flow oxygen. Chest x-ray showed findings are not significantly changed. Basilar effusions an d associated atelectasis versus pulmonary edema. Patient is being continued on IV antibiotic without Zosyn for possible aspiration and also a dose of Lasix IV was given. Patient has been continued on telemetry monitoring and heart rate is better controlled. Current medications reviewed. 02/15/2020 Patient is currently sitting in the chair comfortably. Saturating around 95% on 6 L oxygen via nasal cannula. Patient was started back on tube feedings today. Patient otherwise denied any complaints of chest pain worsening shortness breath. No nausea vomiting. Denied any abdominal pain. Currently maintaining sinus rhythm. Continued on Eliquis and amiodarone and cardiology is on board. Chest x-ray showed findings are not significantly changed. Basilar effusions and associated atelectasis versus pulmonary edema/pneumonia. Patient is on antibiotics in the form of Zosyn. Laboratory data showed WBC 10.7, hemoglobin 12.8 and platelets of 224 BUN is 18 and creatinine 0.58 Pulmonary and cardiology and general surgery is on board. Current medications reviewed On 02/16/2020 Patient is currently sitting in chair comfortably. Pulse ox about 90s at 3 L via nasal cannula. No fever no chills. Patient is being continued IV antibiotics.tube feedings were started and advance as tolerated. Blood and sputum cultures show no growth. Wound cultures from the abdomen showed Cassie albicans. Continued on dressing changes. No surgical intervention recommended. General surgery has seen the patient. Laboratory data showed WBC 10.0 hemoglobin 12.0 and platelets 253 BUN 16 and creatinine 0.61 patient is being transferred to general medical floor. 02/17/2020 Patient is currently lying in the bed comfortably. Still requiring oxygen at 3 L via nasal cannula. Awake alert oriented but lethargic. No fever no chills. Patient is being continued on antibiotics now for Zosyn. Chest x-ray showed right basilar infiltrates with small bilateral pleural effusions stable from comparison. Patient is tolerating tube feedings at 50 cc/h PEG tube site wound cultures showed Cassie albicans. Patient is being continued on duo nebs and Pulmicort. Heart rate is controlled. Anticoagulation with Eliquis and also on amiodarone and metoprolol 3 times daily. Cardiology and pulmonary is following. Laboratory data showed potassium 3.7, BUN 16 and creatinine 0.6 and hemoglobin 12.3 WBC 9.4 Discussed with his at bedside in detail. 02/18/2020 Patient had a repeat CAT scan which did show the infiltrates that were present before no significant worsening of these infiltrates. Patient cannot take an ything via by mouth but will continue his J-tube feedings. 02/19/2020 Patient was doing well earlier today morning and subsequently went into respiratory failure again presently requiring BiPAP. Repeat chest x-ray did not show any new infiltrate. 02/20/2020 Patient underwent respiratory failure patient is presently intubated patient the is on pressor support as well. Patient coded with asystole for few minutes and was successfully resuscitated after that patient does have pupillary reflexes patient did receive a paralytic agents because of which unable to assess the cough or gag reflex at this time. 02/21/2020 Patient can use to be a mechanical ventilator on propofol drip patient is on assist-control ventilation 50% FiO2 pupils and patient does have bilateral airspace disease bilateral pleural effusions patient remains on Zosyn and vancomycin patient remains on norepinephrine, amiodarone and Cardizem drips. Patient presently has an NG tube and J-tube 02/22/2020 Patient remains on ventilator support patient has significant out from the NG tube barely getting anything to J-tube his prognosis is externally poor will discuss with the family regarding his overall goals of care again. Potassium is extremely low and replaced. Patient remains on pressor support at 5 mcgs per ho ur. 02/23/2020 Patient failed the weaning trial today. Patient continues to be on norepinephrine. Patient went settings are bit better today is some pulmonary edema on the chest x-ray. Patient has about 300 mL from OG tube. Patient is receiving J-tube feedings at a very slow rate Review of systems: Unable to obtain due to his clinical condition All inpatient medications were reviewed and appropriate changes in these medications as dictated in the interval history and assessment and plan. Objective - Vital Signs Vital signs: Vital Signs Temp 98.8 F 02/23/20 12:00 Pulse 105 H 02/23/20 14:15 Resp 27 H 02/23/20 14:15 BP 116/72 02/23/20 14:15 Pulse Ox 95 02/23/20 14:15 Intake & Output 02/22/20 02/23/20 02/23/20 18:59 06:59 18:59 Intake Total 2277.678 1827.548 428.330 Output Total 639 421 8497 Balance 1502.678 957.548 -2549.670 Weight 65.5 kg 74 kg 74 kg Intake: IV 1900 1443 307 0.9 NACL 750 135 10 0.9 Normal Saline as 33 42 pressure bag @ 3mL/hr Dextrose 5% in Water 1, 150 000 ml @ 75 mls/hr IV . [id number] EDER with Sodium Bicarb (1 Meq/ml) 150 ml Rx#:[id number] Piperacillin-Tazobactam 3 100 100 .375 gm In Sodium Chloride 0.9% 100 ml @ 25 mls/hr IVPB Q8HR EDER Rx# :[id number] Sodium Chloride 0.9% 1, 825 155 000 ml @ 10 mls/hr IV . Q24H EDER Rx#:[id number] Vancomycin 1,250 mg In 250 Sodium Chloride 0.9% 250 ml @ 125 mls/hr IVPB Q8H EDER Rx#:[id number] potassium 200 vancomycin 500 zosyn 300 100 Intake, IV Titration 357.678 384.548 66.330 Amount Heparin Sod,Pork in 0.45% 69.344 204.512 NaCl 25,000 unit In 0.45 % NaCl 1 250ml.bag @ 12 UNITS/KG/HR 7.92 mls/hr IV .Q24H EDER Rx#: [id number] Norepinephrine 32 mg In 235.922 45.452 10.013 Sodium Chloride 0.9% 218 ml @ 0.05 MCG/KG/MIN 1. 441 mls/hr IV .Q24H EDER Rx#:[id number] propofoL 1,000 mg In 52.412 134.584 56.317 Empty Bag 1 bag @ Titrate IV .Q0M EDER Rx#: [id number] Tube Feeding 20 25 Other 30 Output: Gastric Drainage 150 150 200 Urine 926 239 4417 Other: Voiding Method Indwelling Catheter Indwelling Catheter Indwelling Catheter ABP, PAP, CO, CI - Last Documented Arterial Blood Pressure 128/68 - Exam PHYSICAL EXAMINATION: GENERAL: Patient is intubated sedated HEENT: Pupils are round and equally reacting to light. EOMI. No scleral icterus. No conjunctival pallor. Normocephalic, atraumatic. No pharyngeal erythema. No thyromegaly. CARDIOVASCULAR: S1 and S2 present. No murmurs, rubs, or gallops. PULMONARY: Diffuse bilateral rhonchi and crackles bibasilar ABDOMEN: Soft, nontender, nondistended, normoactive bowel sounds. No palpable organomegaly. MUSCULOSKELETAL: No joint swelling or deformity. EXTREMITIES: No cyanosis, clubbing, or pedal edema. NEUROLOGICAL: Patient is intubated sedated SKIN: No rashes. - Labs CBC & Chem 7: 02/23/20 04:40 02/23/20 11:20 Labs: Abnormal Lab Results - Last 24 Hours (Table) 02/23/20 02/23/20 02/23/20 Range/Units 04:40 04:40 04:40 WBC 12.6 H (3.8-10.6) k/uL RBC 4.04 L (4.30-5.90) m/uL Hgb 11.6 L (13.0-17.5) gm/dL Hct 36.4 L (39.0-53.0) % Neutrophils # 11.2 H (1.3-7.7) k/uL Lymphocytes # 0.7 L (1.0-4.8) k/uL PT 16.1 H (9.0-12.0) sec INR 1.6 H (<1.2) APTT (22.0-30.0) sec ABG pH (7.35-7.45) ABG pCO2 (35-45) mmHg ABG HCO3 (21-25) mmol/L ABG Total CO2 (19-24) mmol/L ABG O2 Saturation (94-97) % Chloride 111 H (98-107) mmol/L Creatinine 0.58 L (0.66-1.25) mg/dL Glucose 102 H (74-99) mg/dL Calcium 6.9 L (8.4-10.2) mg/dL 02/23/20 02/23/20 02/23/20 Range/Units 04:40 05:42 11:20 WBC (3.8-10.6) k/uL RBC (4.30-5.90) m/uL Hgb (13.0-17.5) gm/dL Hct (39.0-53.0) % Neutrophils # (1.3-7.7) k/uL Lymphocytes # (1.0-4.8) k/uL PT (9.0-12.0) sec INR (<1.2) APTT 33.5 H 46.4 H (22.0-30.0) sec ABG pH 7.51 H (7.35-7.45) ABG pCO2 33 L (35-45) mmHg ABG HCO3 26 H (21-25) mmol/L ABG Total CO2 28 H (19-24) mmol/L ABG O2 Saturation 98.4 H (94-97) % Chloride (98-107) mmol/L Creatinine (0.66-1.25) mg/dL Glucose (74-99) mg/dL Calcium (8.4-10.2) mg/dL Microbiology - Last 24 Hours (Table) 02/19/20 16:59 Blood Culture - Preliminary Blood No Growth after 72 hours 02/20/20 00:00 Gram Stain - Final Sputum Sputum Culture - Final Klebsiella pneumoniae Assessment and Plan Plan: -Acute hypoxic respiratory failure secondary to pneumonia predominantly in the right. patient does have pleural effusions on both sides. Patient is on Zosyn at this time there is a concern for aspiration. Patient is presently intubated on assist-control ventilation please referred to pulmonology documentation for went settings. Failed weaning trial today -Septic shock: Patient is presently on norepinephrine which will be continued -Paraxysmal Atrial fibrillation with rapid ventricular rate Patient is being switched to Eliquis. Patient is presently on amiodarone as well as Cardizem, patient present heart rate is controlled still in A. fib -gastroesophageal reflux disease, patient said J-tube feedings were reinitiated and patient has significant output from the NG tube -Hypertension -benign prostatic hypertrophy -History of renal cancer and esophageal cancer with dysphagia and a J-tube . -History of cerebral aneurysm. -KAROL His overall prognosis is extremely poor
[2020-02-23 15:41] LABS: Magnesium 2.2 mg/dL (1.6-2.3); Phosphorus 2.2 mg/dL (2.5-4.5)
[2020-02-23] MEDS ORDERED: ZOLPIDEM 5 MG TAB PO PRN (16:12)
[2020-02-23] MEDS ORDERED: MAG HYDROX/AL HYDROX/SIMETH 30 ML CUP PO PRN (16:12)
[2020-02-23] MEDS ORDERED: ATROPINE SULFATE 0.1 MG/ML 10ML SYRINGE IV PRN (16:12)
[2020-02-23] MEDS ORDERED: NITROGLYCERIN SL TABS 0.4 MG TAB SUBLINGUAL PRN (16:12)
[2020-02-23] MEDS ORDERED: RX INFO: IV CONTRAST WAS GIVEN 1 EACH MISC MISCELLANE PRN (16:12)
[2020-02-23] MEDS ORDERED: Phosphorus Replacement Protoco 1 EACH MISC MISCELLANE PRN (18:10)
[2020-02-23 18:13] LABS: Glucose,Whole Blood 103 mg/dL (75-99)
[2020-02-23] MEDS ORDERED: POTASSIUM PHOSPHATE 10 MMOL in SODIUM CHLORIDE 0.9% 250 ML IV ONE (20:00)
[2020-02-23 23:31] LABS: Glucose,Whole Blood 102 mg/dL (75-99)
[2020-02-24] MEDS: HEPARIN SOD,PORK IN 0.45% NACL 25,000 UNIT in 0.45% NACL 1 250ML.BAG IV SCH ×2 (02:03→21:42)
[2020-02-24 03:48] LABS: ABG Base Excess 5.6 mmol/L; ABG HCO3 29 mmol/L (21-25); ABG Oxygen Saturation 98.9 % (94-97); ABG PCO2 39 mmHg (35-45); ABG PH 7.49 (7.35-7.45); ABG PO2 129 mmHg (83-108); ABG TCO2 30 mmol/L (19-24); Allen Test Performed? Yes
[2020-02-24 03:54] LABS: Basophils # (A) 0.1 k/uL (0-0.2); Basophils % (A) 0 %; Eosinophils # (A) 0.3 k/uL (0-0.7); Eosinophils % (A) 3 %; HGB 11.6 gm/dL (13.0-17.5); Hypochromasia Slight; Lymphocytes % (A) 9 %; MCH 29.1 pg (25.0-35.0); MCHC 32.2 g/dL (31.0-37.0); MCV 90.3 fL (80.0-100.0); Mean Platelet Volume 8.3; Monocytes # (A) 0.4 k/uL (0-1.0); Monocytes % (A) 4 %; Neutrophils # (A) 8.8 k/uL (1.3-7.7); Neutrophils % (A) 83 %; Platelet Count 273 k/uL (150-450); RBC 3.99 m/uL (4.30-5.90); RDW 14.6 % (11.5-15.5); WBC 10.6 k/uL (3.8-10.6)
[2020-02-24 04:02] LABS: INR 1.3 (<1.2); Partial Thromboplastin Time 43.6 sec (22.0-30.0); Prothrombin Time 13.2 sec (9.0-12.0)
[2020-02-24 04:22] LABS: ALT 446 U/L (4-49); AST 198 U/L (17-59); African American GFR (CKD) >90 (>60 ml/min/1.73 sqM); Albumin 2.2 g/dL (3.5-5.0); Alkaline Phosphatase 142 U/L (38-126); Anion Gap 1 mmol/L; Blood Urea Nitrogen 19 mg/dL (9-20); Calcium 7.4 mg/dL (8.4-10.2); Carbon Dioxide 31 mmol/L (22-30); Chloride 110 mmol/L (98-107); Glucose 130 mg/dL (74-99); Non-African American GFR(CKD) >90 (>60 ml/min/1.73 sqM); Potassium 3.7 mmol/L (3.5-5.1); Sodium 142 mmol/L (137-145); Total Bilirubin 0.6 mg/dL (0.2-1.3); Total Protein 5.2 g/dL (6.3-8.2)
[2020-02-24] MEDS ORDERED: POTASSIUM BICARBONATE/CIT AC 20 MEQ TABLET.EFF NG-TUBE SCH ×2 (05:00→22:00)
[2020-02-24 05:50] LABS: Glucose,Whole Blood 110 mg/dL (75-99)
[2020-02-24] MEDS: INSULIN ASPART (NovoLOG) 100 UNIT/ML VIAL SQ SCH ×3 (05:50→18:05)
[2020-02-24] MEDS: METOCLOPRAMIDE 5 MG/ML 2 ML VIAL IVP SCH ×3 (06:14→17:16)
--- NOTE | 2020-02-24 07:07 | XR ---
EXAMINATION TYPE: XR chest 1V portable DATE OF EXAM: 02/24/2020 COMPARISON: 02/23/2020 HISTORY: SOB, Follow Up FINDINGS: Indwelling tubes and catheters are unchanged. Improvement upper lobe infiltrates however perihilar and basilar infiltrates and pleural effusions ar e essentially unchanged. Stable appearance of the cardio-mediastinal structures at this time. Pleural effusion unchanged. IMPRESSION: 1. Improvement upper lobe infiltrates however perihilar and basilar infiltrates and pleural effusion s are essentially unchanged.Clinical correlation and follow up until resolution is recommended.
[2020-02-24] MEDS: IPRATROPIUM-ALBUTEROL 3 ML NEB INHALATION SCH ×4 (07:19→19:33)
[2020-02-24] MEDS: CHLORHEXIDINE GLUCONATE 15 ML CUP MUCOUS MEM SCH ×2 (07:51→21:24)
[2020-02-24] MEDS: PIPERACILLIN-TAZOBACTAM 3.375 GM in SODIUM CHLORIDE 0.9% 100 ML IVPB SCH ×2 (07:51→17:16)
[2020-02-24] MEDS: AMIODARONE 200 MG TAB PO SCH ×2 (07:51→21:23)
[2020-02-24] MEDS: PANTOPRAZOLE 40 MG/10 ML VIAL IVP SCH (07:51)
[2020-02-24] MEDS ORDERED: FUROSEMIDE 10 MG/ML 4 ML VIAL IV STA (08:17)
[2020-02-24] MEDS ORDERED: ASPIRIN 81 MG PO SCH (09:00)
[2020-02-24] MEDS ORDERED: CLOPIDOGREL 75 MG TAB PO SCH (09:00)
[2020-02-24 09:05] LABS: ABG Base Excess 6.6 mmol/L; ABG HCO3 29 mmol/L (21-25); ABG PCO2 36 mmHg (35-45); ABG PH 7.52 (7.35-7.45); ABG PO2 82 mmHg (83-108); ABG TCO2 31 mmol/L (19-24)
[2020-02-24 09:07] LABS: Allen Test Performed? no
--- NOTE | 2020-02-24 09:55 | P.PN ---
Subjective Progress Note Date: 02/24/20 Progress Note Date: 02/24/20 This is a pleasant 64-year-old male past medical history significant for paroxysmal atrial fibrillation on long-term anticoagulation, esophageal cancer with J-tube in place, hypertension and brain aneurysm in the past. He follows in the office with Dr. Claros. Patient undergoing spontaneous breathing trial which he is tolerating better than yesterday. He was taken off the levophed this morning and pressures have been better. Remains on heparin drip. Patient has been in sinus rhythm however did have episodes of A. fib with RVR with heart rates up to the 150s to 160s. He had previously been on a Cardizem drip however this had been discontinued once he has been in sinus rhythm. He did receive IV Lasix yesterday -2.8 L. GENERAL: Comfortable in bed on mechanical ventilation. NECK: Supple without JVD or thyromegaly. LUNGS: Respiration equal and unlabored. Diminished bilaterally. HEART: Regular rate and rhythm without murmurs, rubs or gallops. S1 and S2 heard. EXTREMITIES: Normal range of motion. No clubbing or cyanosis. Peripheral pulses intact. ASSESSMENT Paroxysmal atrial fibrillation on heparin for anticoagulation currently maintaining sinus mechanism Acute hypoxic respiratory failure requiring mechanical ventilation, related to aspiration with some component of volume overload Asystole arrest, possibly related to hypoxic episode. No further bradycardic episodes noted Aspiration pneumonia Lactic acidosis, improved Leukocytosis improving Acute systolic heart failure s/p cardiac arrest New onset cardiomyopathy with ejection fraction 40-45%, likely tachyarrhythmia induced History of esophageal cancer status post J-tube placement Hypertension History of brain aneurysm with [employer] shunt [employer]AN Continue oral amiodarone 400 mg BID. Taper per protocol. Continue heparin drip per ICU. Eliquis is too expensive for patient and would recommend transition to Coumadin when able. Patient tolerated Lasix well with improvement in respiratory status however chest x-ray still with bilateral effusions and vascular congestion. Agree with second dose of Lasix today. Patient has been having intermittent A. fib with RVR with heart rates in the 150s to 160s. We will start Lopressor 25 mg twice a day. Patient did have asys tole arrest after being intubated and we will monitor closely for any bradycardic episodes or evidence of tachybradycardia syndrome. No current pacemaker need as asystole likely related to hypoxia/ intubation Patient does have new cardiomyopathy with ejection fraction 40-45% and optimize heart failure regimen as blood pressure improves and patient off of pressors. Objective - Vital Signs Vital signs: Vital Signs Temp 99.2 F 02/24/20 08:00 Pulse 86 02/24/20 08:15 Resp 21 02/24/20 08:15 BP 140/88 02/24/20 05:15 Pulse Ox 93 L 02/24/20 08:15 Intake & Output 02/23/20 02/24/20 02/24/20 18:59 06:59 18:59 Intake Total 689.013 828.768 300.233 Output Total 3488 820 325 Balance -2798.987 8.768 -24.767 Weight 74 kg 71.5 kg Intake: IV 474 292 132 0.9 NACL 10 0.9 Normal Saline as 69 72 12 pressure bag @ 3mL/hr Piperacillin-Tazobactam 3 200 100 100 .375 gm In Sodium Chloride 0.9% 100 ml @ 25 mls/hr IVPB Q8HR EDER Rx# :[id number] Sodium Chloride 0.9% 1, 195 120 20 000 ml @ 10 mls/hr IV . Q24H EDER Rx#:[id number] Intake, IV Titration 110.013 286.768 108.233 Amount Heparin Sod,Pork in 0.45% 245.412 NaCl 25,000 unit In 0.45 % NaCl 1 250ml.bag @ 12 UNITS/KG/HR 7.92 mls/hr IV .Q24H EDER Rx#: [id number] Norepinephrine 32 mg In 10.013 41.356 5.160 Sodium Chloride 0.9% 218 ml @ 0.05 MCG/KG/MIN 1. 441 mls/hr IV .Q24H EDER Rx#:[id number] propofoL 1,000 mg In 100.000 103.073 Empty Bag 1 bag @ Titrate IV .Q0M EDER Rx#: [id number] Tube Feeding 45 160 30 Other 60 90 30 Output: Gastric Drainage 200 100 Urine 3288 820 225 Other: Voiding Method Indwelling Catheter Indwelling Catheter ABP, PAP, CO, CI - Last Documented Arterial Blood Pressure 110/56 - Labs CBC & Chem 7: 02/24/20 03:40 02/24/20 03:40 Labs: Abnormal Lab Results - Last 24 Hours (Table) 02/23/20 02/23/20 02/23/20 Range/Units 11:20 11:20 18:12 RBC (4.30-5.90) m/uL Hgb (13.0-17.5) gm/dL Hct (39.0-53.0) % Neutrophils # (1.3-7.7) k/uL PT (9.0-12.0) sec INR (<1.2) APTT 46.4 H (22.0-30.0) sec ABG pH (7.35-7.45) ABG pO2 (83-108) mmHg ABG HCO3 (21-25) mmol/L ABG Total CO2 (19-24) mmol/L ABG O2 Saturation (94-97) % Chloride (98-107) mmol/L Carbon Dioxide (22-30) mmol/L Glucose (74-99) mg/dL POC Glucose (mg/dL) 103 H (75-99) mg/dL Calcium (8.4-10.2) mg/dL Phosphorus 2.2 L (2.5-4.5) mg/dL AST (17-59) U/L ALT (4-49) U/L Alkaline Phosphatase (38-126) U/L Total Protein (6.3-8.2) g/dL Albumin (3.5-5.0) g/dL 02/23/20 02/24/20 02/24/20 Range/Units 23:30 03:40 03:40 RBC 3.99 L (4.30-5.90) m/uL Hgb 11.6 L (13.0-17.5) gm/dL Hct 36.0 L (39.0-53.0) % Neutrophils # 8.8 H (1.3-7.7) k/uL PT 13.2 H (9.0-12.0) sec INR 1.3 H (<1.2) APTT 43.6 H (22.0-30.0) sec ABG pH (7.35-7.45) ABG pO2 (83-108) mmHg ABG HCO3 (21-25) mmol/L ABG Total CO2 (19-24) mmol/L ABG O2 Saturation (94-97) % Chloride (98-107) mmol/L Carbon Dioxide (22-30) mmol/L Glucose (74-99) mg/dL POC Glucose (mg/dL) 102 H (75-99) mg/dL Calcium (8.4-10.2) mg/dL Phosphorus (2.5-4.5) mg/dL AST (17-59) U/L ALT (4-49) U/L Alkaline Phosphatase (38-126) U/L Total Protein (6.3-8.2) g/dL Albumin (3.5-5.0) g/dL 02/24/20 02/24/20 02/24/20 Range/Units 03:40 03:41 05:49 RBC (4.30-5.90) m/uL Hgb (13.0-17.5) gm/dL Hct (39.0-53.0) % Neutrophils # (1.3-7.7) k/uL PT (9.0-12.0) sec INR (<1.2) APTT (22.0-30.0) sec ABG pH 7.49 H (7.35-7.45) ABG pO2 129 H (83-108) mmHg ABG HCO3 29 H (21-25) mmol/L ABG Total CO2 30 H (19-24) mmol/L ABG O2 Saturation 98.9 H (94-97) % Chloride 110 H (98-107) mmol/L Carbon Dioxide 31 H (22-30) mmol/L Glucose 130 H (74-99) mg/dL POC Glucose (mg/dL) 110 H (75-99) mg/dL Calcium 7.4 L (8.4-10.2) mg/dL Phosphorus (2.5-4.5) mg/dL AST 198 H (17-59) U/L ALT 446 H (4-49) U/L Alkaline Phosphatase 142 H (38-126) U/L Total Protein 5.2 L (6.3-8.2) g/dL Albumin 2.2 L (3.5-5.0) g/dL 02/24/20 Range/Units 09:03 RBC (4.30-5.90) m/uL Hgb (13.0-17.5) gm/dL Hct (39.0-53.0) % Neutrophils # (1.3-7.7) k/uL PT (9.0-12.0) sec INR (<1.2) APTT (22.0-30.0) sec ABG pH 7.52 H (7.35-7.45) ABG pO2 82 L (83-108) mmHg ABG HCO3 29 H (21-25) mmol/L ABG Total CO2 31 H (19-24) mmol/L ABG O2 Saturation (94-97) % Chloride (98-107) mmol/L Carbon Dioxide (22-30) mmol/L Glucose (74-99) mg/dL POC Glucose (mg/dL) (75-99) mg/dL Calcium (8.4-10.2) mg/dL Phosphorus (2.5-4.5) mg/dL AST (17-59) U/L ALT (4-49) U/L Alkaline Phosphatase (38-126) U/L Total Protein (6.3-8.2) g/dL Albumin (3.5-5.0) g/dL Microbiology - Last 24 Hours (Table) 02/19/20 16:59 Blood Culture - Preliminary Blood No Growth after 96 hours
[2020-02-24] MEDS: METOPROLOL TARTRATE 25 MG TAB PO SCH ×2 (10:08→21:24)
[2020-02-24] MEDS: NOREPINEPHRINE 32 MG in SODIUM CHLORIDE 0.9% 218 ML IV SCH (10:10)
--- NOTE | 2020-02-24 11:07 | P.PN ---
Subjective Progress Note Date: 02/24/20 This is a 64-year-old white male patient of Dr. Claude Deluna that was admitted through the emergency department on 02/11/2020 when he came in for evaluation of shortness of breath, hypoxemia. Patient has a known history of esophageal cancer status post chemotherapy and NG tube placement, has a known history of COPD and CHF. Patient was started on empiric antibiotics in the form of Zosyn, nebulized bronchodilators, and diuretics, did require high flow oxygen per Airvo, which was discontinued yesterday, patient is currently on 6 L of oxygen per high flow nasal cannula with a pulse ox of 93-95%, his tube feedings were held yesterday related to some leaking around the bolster, surgical services were consulted and Dr. Styles adjusted the bolster, and tube feedings were resumed today, with TwoCal HN currently at 10 ML per hour. Of note previously patient was receiving tube feedings and consuming some nausea fluids by mouth. He is currently strict nothing by mouth, and receiving all of his nutrition via his J-tube. He is sounding much less congested today, bronchospastic, breathing easier, more comfortably, he sitting up in the chair. His vital signs are stable, his been afebrile, hemodynamically stable, 0.9 normal saline infusing at a rate of 20 ML per hour, yesterday he received a dose of Lasix, and he produces 2.8 L and urine output, he is -1.4 L over last 24 hours, indwelling catheter is in place. On admission patient was in A. fib with RVR, he is currently in sinus mechanism, he is on oral amiodarone and Eliquis for anticoagulation, cardiology services are following. Today's chest x-ray has been reviewed, showing stable diffuse pleural parenchymal disease related to aspiration pneumonia. Today's labs have been reviewed, showing white blood cell, 10.7, hemoglobin of 12.8, sodium is 140, potassium is 3.4, the rest of electrolytes were within normal limits, BUN is 18 creatinine 0.58. All microbiology has shown no growth. He is on Zosyn for antibiotic coverage. The patient is seen today 02/16/2020 in follow-up in the intensive care unit. He is currently resting quite comfortably in bed. Awake and alert in no acute distress. Maintaining O2 saturations in the 90s on 3 L/m per nasal cannula. 0.9 normal saline at 20 ML's per hour. He is receiving nourishment via PEG tube with TwoCal HN at 30 MLS per hour with a goal of 40 ML's per hour. White count 10.0. Hemoglobin 12.0. Sodium 138. Potassium 4.2. Creatinine 0.61. Blood and wound and sputum cultures reveal no growth. He is currently on DuoNeb inhalations, Pulmicort inhalations, antibiotics in the form of Zosyn. The patient is seen today 02/17/2020 in follow-up in the intensive care unit. He is currently resting comfortably in bed. Awake and alert in no acute distress. He is maintaining good O2 saturations in the 90s on 3 L/m per nasal cannula. Chest x-ray reveals right basilar infiltrate with small bilateral pleural effusions. Stable compared to previous. 0.9 normal saline at 20 ML's per hour. Currently receiving TwoCal HN at 40 MLs per hour with a goal of 50 ML's per hour. Blood culture reveals no growth. Sputum culture reveals no growth. Abdomen reveals Cassie. White count 9.4. Hemoglobin 12.3. Sodium 142. Potassium 3.7. Creatinine 0.60. He remains on Zosyn. Anticoagulated with Eliquis. On 02/18/2020 and seeing the patient for a follow-up in the intensive care unit. The patient is having some difficulties with his J-tube. This was found to be clotted again and surgical consultation was again obtained in regards to this problem. In terms of his breathing, is breathing comfortably at 3 L of oxygen by nasal cannula with a pulse of 74%. He is on IV fluids with normal saline at rate of 20 mL an hour. He is in normal sinus rhythm. His chest x-ray still showing increased opacity in lung bases bilaterally and we opted to proceed with a CAT scan of the chest to characterized his abnormalities. The patient has no fever. The patient has no chills. The patient is taking some material orally for pleasure. I reviewed the CAT scan of the chest that was done this morning. The CAT scan showed small better pleural effusion. There is a limited consoli dation process in the left lower lobe. Some limited nodularity is also noted and this appears segment of the left lower lobe. The patient has postsurgical changes with previous esophagectomy and gastric pull. No evidence of any lymphadenopathy. No evidence of any cardiomegaly. 02/19/2020, the patient is resting comfortably in bed and oxidation is slightly improved and currently is on 2 L about 2 by nasal cannula. His current pulse ox is 92%. A CAT scan of the chest was obtained yesterday and showed no significant pleural effusion. There was a consolidative process in the left lower lobe unchanged compared to the previous examination. There was also a linear atelectasis in the right lower lobe. There is also nodularity identified in the right lower lobe. Addition the nodularity in this appears segment of the left lower lobe. The previously noted nodules in the left lower lobe are less conspicuous and there is small bilateral pleural effusions bilaterally. The patient is postop esophagectomy and gastric pull-through. He has no fever. No chills. The issues and a competition related to J-tube feeding has been dealt with and the patient's catheter has been flushed appropriately by the nursing staff and the patient is currently receiving enteral feeding vi the jejunostomy tube. The patient is also in atrial fibrillation. Anticoagulation will be resumed and the patient be started back on Eliquis for now. No respiratory distress. Awake and alert and following commands and answering questions. 02/20/2020, the patient's condition is obviously decompensated. Since yesterday afternoon, the patient developed progressive worsening shortness of breath and late at night, the patient went to respiratory failure requiring intubation and mechanical ventilation. Post intubation, the patient had a brief cardiopulmonary arrest where he became bradycardic and then went into cardiac arrest where he was resuscitated in the intensive care unit and there was return of spontaneous circulation. This morning, the patient is intubated on a mechanical ventilator. I saw him sedated on propofol at 50 g per KG per minute. He is an assist-control mode of ventilator at the rate of 28 with a tidal volume of 600 and FiO2 of 1% with a PEEP of 10. Ventilator adjustments was done earlier this morning and the patient was switched to ACC/smoking. Subsequent blood gases showed improvement and acid base status and the most recent blood gases showed a pH of 7.37 with a pCO2 of 26 and pO2 of 231. FiO2 was dropped down to 50%. The patient is significantly hypotensive and hemodynamically unstable. He was given a total of 2 L of IV fluid and norepinephrine infusion is being titrated to maintain a mean arterial pressure above 65. He is afebrile. White cell count is up to 21. Lactic acid level is at 2.8. Repeat chest x-ray showed some lower lobe pulmonary filtration. Note that the patient has a gastric pull related to his previous history of esophageal cancer. Nevertheless, the possibility of small better pleural effusion and bibasilar airspace disease in the lung bases cannot be completely ruled out. The patient also went into atrial fibrillation with rapid response. He was started on amiodarone drip for rate control and currently is running at 0.5 mg per minute. A triple lumen catheter was established today for IV access and hemodynamic instability. Note that post intubation, NG tube was inserted and the patient had a total of 700 mL of gastric output. The output was somewhat bloody. Nevertheless, there is no clear indication for a GI bleed. Hemoglobin was as high as 13.7 and dropped down to 10.3. There may be a component of mild upper GI bleeding. His INR is at 2 with a PT of 19.2. Anticoagulation was placed on hold for now. Vitamin K will be given. 02/21/2020, the patient remains intubated on a mechanical ventilator. The pat ient's is on propofol at 30 g per KG per minute. He is well sedated. Earlier this morning he was an assist-control mode at the rate of 28 with a tidal volume of 600 and FiO2 of 50% with a PEEP of 10. The chest x-ray shows no significant changes compared to earlier films. The blood gas showed a pH of 7.36 with a pCO2 of 27 and pO2 of 121. The patient about the pleural effusions and bilateral air space disease in the lung bases without any significant change. The patient remains on accommodation Zosyn and vancomycin. He is afebrile. White cell count is up to 31. Meanwhile, he remains hemodynamically unstable. Despite aggressive the being resuscitated with IV fluids, the patient is still requiring pressors. He remains on norepinephrine infusion at 50 g per minute. He is also on normal saline at the rate of 100 mL an hour. Noted the patient is still atrial fibrillation. He was covered with an amiodarone drip and amiodarone is still running at 0.5 mg per minute. Cardizem was also added for better rate control at the rate of 50 mg an hour. He is still on and off tachycardic. On his blood work, he continues to show a component of non-anion gap metabolic acidosis. The patient's serum bicarb is at 16 with an anion gap of 8. BUN is at 41 with a creatinine of 1.2. The neck fluid balance is +3.7 L for the past 24 hours. The patient has no ongoing gastric output. He remains nothing by mouth. The J-tube is intact and an NG tube was also in place. 02/22/2020, the patient remains intubated on a mechanical ventilator. Nevertheless, much more comfortable and synchronous with the mechanical ventilator on today's evaluation. The patient remained on assist control at the rate of 24 with a tidal volume of 600 and FiO2 of 50% with a PEEP of 8. The blood gases shows a component of respiratory alkalosis. The pH is at 7.54 pCO2 of 30 and pO2 of 146. Chest x-ray shows no interval changes and the patient has bilateral lower lobe pulmonary infiltrates and effusion and a large intrathoracic stomach due to gastric pull-through. The patient has no major orotracheal secretions. He was started on enteral feeding through his J-tube and the patient has an NG tube in place and output from the NG tube is been in the order of 100-200 mL of gastric with the over the past 24 hours. Hemodynamically, he is doing better. His A. fib is under better control. The patient remains on a amiodarone drip at 0.5 mg per minute. The patient is also on a lower dose of norepinephrine infusion which is in the process of being weaned off and currently is on 0.15 mg per KG per minute. The patient is on Cardizem drip at 15 mg an hour this was cut down to 10 minute process of cutting it down further. The patient remains on IV heparin drip. The patient is also on a bicarb infusion drip and the bicarb can be discontinued as the patient's serum bicarb has normalized and subsequent to 24 and the patient developed a component of alkalosis which is essentially respiratory alkalosis and his blood gases. The sputum analysis has shown Klebsiella and the patient is still on a combination of Zosyn and vancomycin. The white cell count is improving is currently down to 23.9. The potassium level needs to be replaced as low at 2.6. Renal function is stable for now. No other significant issues overnight. The patient is somewhat improved since yesterday. A quick sedation holiday will be given as the patient is currently on propofol running at 20 g per KG per minute. On 02/23/2020, the patient is being seen for a follow-up. This morning the patient's upper quadrant 30 mg per KG per minute. I was told by nursing staff the patient was given a sedation holiday yesterday following that the patient aroused and he was able to follow some commands. In general, the patient is doing well. He is hemodynamically stable. He was taken gradually off levo fed and the norepinephrine infusion is currently running at 0.1 g per KG per minute. He is also on normal saline at the rate of 75 mL an hour. Doing well. No specific issues overnight. On a mechanical ventilator, he remains on assist control mode at the rate of 14 with a tidal volume of 450 and FiO2 of 50% with a PEEP of 5. The patient's blood gases from today showed a pH of 7.51 with a pCO2 of 32 and pO2 of 11. Chest x-ray shows increased interstitial markings bilaterally along with a component of pulmonary edema in addition to gastric pull-through and lower lobe consolidations and effusions that are present on previous evaluations. I feel that the patient is going into some degree of fluid overload. The neck fluid balance is been +2.8 L over the past 24 hours. The sputum culture was positive for Klebsiella. The patient is afebrile. No other issues for now. J-tube feeding will be started today. NG tube in place and output has been only 150 mL over the past 12 hours. The patient is covered with Zosyn and vancomycin and the vancomycin will be discontinued. On 02/24/2020, the patient is being seen for a follow-up. Patient is getting another sedation holiday as the patient may be able to wean off the mechanical ventilator. He is on a minimal dose of propofol for now. He is on a assist control mode of ventilation at the rate of 14 with a tidal volume of 450 and FiO2 of 35% with a PEEP of 5. PH is at 7.48 with a pCO2 of 40 and pO2 148. IV fluids at KVO. The patient remains on IV heparin. The patient remains on levo fed at 0.06 units per KG per minute. He is receiving enteral feeding with protein high-calorie at the rate of 50 mL an hour. NG tube is in place and out put is minimal at this point in time. The patient was given Lasix yesterday 40 mg IV push and the neck fluid balance has been -2.7 L. Chest x-ray showing some improvement in the volume status. ET tube is in a good location. NG tube in good location. Further diuresis may be of benefit. No abdominal distention. Adequate pulses in all 4 extremities. Arousable. He is in the process of getting a sedation holiday to be checked for his weaning parameters. Objective - Vital Signs Vital signs: Vital Signs Temp 99.2 F 02/24/20 08:00 Pulse 89 02/24/20 10:00 Resp 19 02/24/20 10:00 BP 127/78 02/24/20 09:15 Pulse Ox 92 L 02/24/20 10:00 Intake & Output 02/23/20 02/24/20 02/24/20 18:59 06:59 18:59 Intake Total 689.013 828.768 419.525 Output Total 3488 820 2225 Balance -2798.987 8.768 -1805.475 Weight 74 kg 71.5 kg Intake: IV 474 292 180 0.9 NACL 10 0.9 Normal Saline as 69 72 30 pressure bag @ 3mL/hr Piperacillin-Tazobactam 3 200 100 100 .375 gm In Sodium Chloride 0.9% 100 ml @ 25 mls/hr IVPB Q8HR [facility] Rx# :[id number] Sodium Chloride 0.9% 1, 195 120 50 000 ml @ 10 mls/hr IV . Q24H [facility] Rx#:[id number] Intake, IV Titration 110.013 286.768 114.525 Amount Heparin Sod,Pork in 0.45% 245.412 NaCl 25,000 unit In 0.45 % NaCl 1 250ml.bag @ 12 UNITS/KG/HR 7.92 mls/hr IV .Q24H [facility] Rx#: [id number] Norepinephrine 32 mg In 10.013 41.356 5.160 Sodium Chloride 0.9% 218 ml @ 0.05 MCG/KG/MIN 1. 441 mls/hr IV .Q24H [facility] Rx#:[id number] propofoL 1,000 mg In 100.000 109.365 Empty Bag 1 bag @ Titrate IV .Q0M [facility] Rx#: [id number] Tube Feeding 45 160 95 Other 60 90 30 Output: Gastric Drainage 200 100 Urine 3288 820 2125 Other: Voiding Method Indwelling Catheter Indwelling Catheter Indwelling Catheter ABP, PAP, CO, CI - Last Documented Arterial Blood Pressure 97/52 - Exam GENERAL EXAM: Alert, very pleasant, frail-looking 64-year-old male patient, and the patient is sedated with propofol and the patient's calm and comfortable intubated on a mechanical ventilator. Orogastric and orotracheal tube are both in place. HEAD: Normocephalic/atraumatic. EYES: Normal reaction of pupils, equal size. Conjunctiva pink, sclera white. NOSE: Clear with pink turbinates. THROAT: No erythema or exudates. NECK: No masses, no JVD, no thyroid enlargement, no adenopathy. The patient has a left subclavian triple-lumen catheter in place. CHEST: No chest wall deformity. Symmetrical expansion. LUNGS: Equal air entry with scattered wheezes and rhonchi, improved CVS: The patient is tachycardic and there rate and rhythm is irregular consistent with atrial fibrillation with rapid ventricular response. and rhythm, normal S1 and S2, no gallops, no murmurs, no rubs ABDOMEN: Soft, nontender. No hepatosplenomegaly, normal bowel sounds, no guarding or rigidity. J tube is in place, with the tube feedings infusing, and the patient is tube feeds are currently on hold. EXTREMITIES: No clubbing, no edema, no cyanosis, 2+ pulses and upper and lower e xtremities. MUSCULOSKELETAL: Muscle strength and tone normal. SPINE: No scoliosis or deformity SKIN: No rashes CENTRAL NERVOUS SYSTEM: The patient is currently sedated on propofol - Labs CBC & Chem 7: 02/24/20 03:40 02/24/20 03:40 Labs: Abnormal Lab Results - Last 24 Hours (Table) 02/23/20 02/23/20 02/23/20 Range/Units 11:20 11: 18:12 RBC (4.30-5.90) m/uL Hgb (13.0-17.5) gm/dL Hct (39.0-53.0) % Neutrophils # (1.3-7.7) k/uL PT (9.0-12.0) sec INR (<1.2) APTT 46.4 H (22.0-30.0) sec ABG pH (7.35-7.45) ABG pO2 (83-108) mmHg ABG HCO3 (21-25) mmol/L ABG Total CO2 (19-24) mmol/L ABG O2 Saturation (94-97) % Chloride (98-107) mmol/L Carbon Dioxide (22-30) mmol/L Glucose (74-99) mg/dL POC Glucose (mg/dL) 103 H (75-99) mg/dL Calcium (8.4-10.2) mg/dL Phosphorus 2.2 L (2.5-4.5) mg/dL AST (17-59) U/L ALT (4-49) U/L Alkaline Phosphatase (38-126) U/L Total Protein (6.3-8.2) g/dL Albumin (3.5-5.0) g/dL 02/23/20 02/24/20 02/24/20 Range/Units 23:30 03:40 03:40 RBC 3.99 L (4.30-5.90) m/uL Hgb 11.6 L (13.0-17.5) gm/dL Hct 36.0 L (39.0-53.0) % Neutrophils # 8.8 H (1.3-7.7) k/uL PT 13.2 H (9.0-12.0) sec INR 1.3 H (<1.2) APTT 43.6 H (22.0-30.0) sec ABG pH (7.35-7.45) ABG pO2 (83-108) mmHg ABG HCO3 (21-25) mmol/L ABG Total CO2 (19-24) mmol/L ABG O2 Saturation (94-97) % Chloride (98-107) mmol/L Carbon Dioxide (22-30) mmol/L Glucose (74-99) mg/dL POC Glucose (mg/dL) 102 H (75-99) mg/dL Calcium (8.4-10.2) mg/dL Phosphorus (2.5-4.5) mg/dL AST (17-59) U/L ALT (4-49) U/L Alkaline Phosphatase (38-126) U/L Total Protein (6.3-8.2) g/dL Albumin (3.5-5.0) g/dL 02/24/20 02/24/20 02/24/20 Range/Units 03:40 03:41 05:49 RBC (4.30-5.90) m/uL Hgb (13.0-17.5) gm/dL Hct (39.0-53.0) % Neutrophils # (1.3-7.7) k/uL PT (9.0-12.0) sec INR (<1.2) APTT (22.0-30.0) sec ABG pH 7.49 H (7.35-7.45) ABG pO2 129 H (83-108) mmHg ABG HCO3 29 H (21-25) mmol/L ABG Total CO2 30 H (19-24) mmol/L ABG O2 Saturation 98.9 H (94-97) % Chloride 110 H (98-107) mmol/L Carbon Dioxide 31 H (22-30) mmol/L Glucose 130 H (74-99) mg/dL POC Glucose (mg/dL) 110 H (75-99) mg/dL Calcium 7.4 L (8.4-10.2) mg/dL Phosphorus (2.5-4.5) mg/dL AST 198 H (17-59) U/L ALT 446 H (4-49) U/L Alkaline Phosphatase 142 H (38-126) U/L Total Protein 5.2 L (6.3-8.2) g/dL Albumin 2.2 L (3.5-5.0) g/dL 02/24/20 Range/Units 09:03 RBC (4.30-5.90) m/uL Hgb (13.0-17.5) gm/dL Hct (39.0-53.0) % Neutrophils # (1.3-7.7) k/uL PT (9.0-12.0) sec INR (<1.2) APTT (22.0-30.0) sec ABG pH 7.52 H (7.35-7.45) ABG pO2 82 L (83-108) mmHg ABG HCO3 29 H (21-25) mmol/L ABG Total CO2 31 H (19-24) mmol/L ABG O2 Saturation (94-97) % Chloride (98-107) mmol/L Carbon Dioxide (22-30) mmol/L Glucose (74-99) mg/dL POC Glucose (mg/dL) (75-99) mg/dL Calcium (8.4-10.2) mg/dL Phosphorus (2.5-4.5) mg/dL AST (17-59) U/L ALT (4-49) U/L Alkaline Phosphatase (38-126) U/L Total Protein (6.3-8.2) g/dL Albumin (3.5-5.0) g/dL Microbiology - Last 24 Hours (Table) 02/19/20 16:59 Blood Culture - Preliminary Blood No Growth after 96 hours Assessment and Plan Plan: 1 Acute hypoxemic respiratory failure , most likely secondary to aspiration pneumonia with bibasilar infiltrates, and the patient had to be intubated and placed on a mechanical ventilator. The sputum culture showing Klebsiella pn eumoniae and the patient remains on IV Zosyn. Follow-up chest x-ray from today shows increased interstitial markings bilaterally along with a possibility of a component of CHF and fluid overload. Nevertheless, the oxygenation is stable for now. Based on that, the patient was given IV Lasix and the neck fluid balance is -2.7 L 4 yesterday. Diuresis will be continued. Oxidation is stable for now. The patient remains on mechanical ventilation. The patient be taken off the sedation and the patient will be checked for his weaning parameters and his readiness for further weaning. 2 shock, and the patient is profoundly hypotensive probably related to a component of intravascular volume depletion and septic shock. The process of been weaned off and the patient is currently on a minimal dose of levothyroxine 0. 06 g per KG per minute and I'm hoping to wean it up further on today's evalu ation. At the same time, the patient is benefiting from diuresis. 3 atrial fibrillation with rapid ventricular response, and the heart rate response is improved considerably. The patient is currently off the Cardizem drip. The patient is taking oral amiodarone 400 mg by mouth twice a day. The p atient is on IV heparin. Rate is controlled for now. 4 suspect upper GI bleed, currently nothing by mouth and the J-tube feeding has been placed restarted and there is no evidence of any ongoing GI bleed and the patient's hemoglobin is stable for now. 5 History of esophageal cancer, status post gastric pull and the patient has gastroparesis and the patient is being fed through a J-tube. 6 leukocytosis secondary to above , improving, and the white cell count is down to 12.6 7 History of seizure disorder 8 History of brain aneurysm, and the patient had a [employer] aneurysm rupture 25 years ago an and comprehension and he neglectson the left side and has history of seizures 9 GERD/reflux 10 Sleep apnea syndrome, does not utilize a CPAP machine 11 previous history of a left heel wound, treated at the wound center 12 non-anion gap metabolic acidosis, recovered 13 difficult mobility and the patient wheelchair Plan Continue ventilator support Sedation holiday Check weaning parameters SS readiness to wean and if possible give the patient is point is breathing trial Wean off norepinephrine infusion discontinue if possible Continue enteral feeding through the J-tube and keep NG tube in place IV heparin, do not switch the warfarin yet as the patient may be still requiring further interventions including a PICC line later stage. IV fluids to KVO Lasix mg IV push 1 We'll continue to follow Condition is critical and the this evaluation was on a more than 30 minutes Time with Patient: Greater than 30
[2020-02-24 11:59] LABS: Glucose,Whole Blood 112 mg/dL (75-99)
--- NOTE | 2020-02-24 13:38 | P.PN ---
Subjective Acute hypoxic respiratory failure probably secondary to pneumonia 64-year-old the male admitted for pneumonia bilateral, predominantly in the right lower lobes. There is a concern about aspiration patient has been vomiting. Patient does take a modified diet by mouth at home does have a PEG tube in place. Patient the antibiotics were changed to Zosyn which is appropriate. Patient went into respiratory distress on some requirements have gone up because of which patient was transferred to ICU later in the day patient started having A. fib with rapid ventricular rate because of which patient was started on Cardizem and cardiology was consulted. I'm also consulting speech therapy because of his swallowing issues to assess if her appropriate for the patient to be continued on modified diet by mouth. 02/13/2020 Patient clinically looks better patient is being continued on Zosyn continued on IV fluids. Patient will undergo swallow evaluation today speech therapy was consulted. Patient remains nothing by mouth patient is being started on Eliquis for the atrial fibrillation anticoagulation patient is presently on oral amiodarone heart rate is better controlled today. On 02/14/2020 Patient is currently sitting in the chair comfortably. Still having baseline shortness of breath and bibasilar crackles on examination. Currently on high flow oxygen. Chest x-ray showed findings are not significantly changed. Basilar effusions an d associated atelectasis versus pulmonary edema. Patient is being continued on IV antibiotic without Zosyn for possible aspiration and also a dose of Lasix IV was given. Patient has been continued on telemetry monitoring and heart rate is better controlled. Current medications reviewed. 02/15/2020 Patient is currently sitting in the chair comfortably. Saturating around 95% on 6 L oxygen via nasal cannula. Patient was started back on tube feedings today. Patient otherwise denied any complaints of chest pain worsening shortness breath. No nausea vomiting. Denied any abdominal pain. Currently maintaining sinus rhythm. Continued on Eliquis and amiodarone and cardiology is on board. Chest x-ray showed findings are not significantly changed. Basilar effusions and associated atelectasis versus pulmonary edema/pneumonia. Patient is on antibiotics in the form of Zosyn. Laboratory data showed WBC 10.7, hemoglobin 12.8 and platelets of 224 BUN is 18 and creatinine 0.58 Pulmonary and cardiology and general surgery is on board. Current medications reviewed On 02/16/2020 Patient is currently sitting in chair comfortably. Pulse ox about 90s at 3 L via nasal cannula. No fever no chills. Patient is being continued IV antibiotics.tube feedings were started and advance as tolerated. Blood and sputum cultures show no growth. Wound cultures from the abdomen showed Cassie albicans. Continued on dressing changes. No surgical intervention recommended. General surgery has seen the patient. Laboratory data showed WBC 10.0 hemoglobin 12.0 and platelets 253 BUN 16 and creatinine 0.61 patient is being transferred to general medical floor. 02/17/2020 Patient is currently lying in the bed comfortably. Still requiring oxygen at 3 L via nasal cannula. Awake alert oriented but lethargic. No fever no chills. Patient is being continued on antibiotics now for Zosyn. Chest x-ray showed right basilar infiltrates with small bilateral pleural effusions stable from comparison. Patient is tolerating tube feedings at 50 cc/h PEG tube site wound cultures showed Cassie albicans. Patient is being continued on duo nebs and Pulmicort. Heart rate is controlled. Anticoagulation with Eliquis and also on amiodarone and metoprolol 3 times daily. Cardiology and pulmonary is following. Laboratory data showed potassium 3.7, BUN 16 and creatinine 0.6 and hemoglobin 12.3 WBC 9.4 Discussed with his at bedside in detail. 02/18/2020 Patient had a repeat CAT scan which did show the infiltrates that were present before no significant worsening of these infiltrates. Patient cannot take an ything via by mouth but will continue his J-tube feedings. 02/19/2020 Patient was doing well earlier today morning and subsequently went into respiratory failure again presently requiring BiPAP. Repeat chest x-ray did not show any new infiltrate. 02/20/2020 Patient underwent respiratory failure patient is presently intubated patient the is on pressor support as well. Patient coded with asystole for few minutes and was successfully resuscitated after that patient does have pupillary reflexes patient did receive a paralytic agents because of which unable to assess the cough or gag reflex at this time. 02/21/2020 Patient can use to be a mechanical ventilator on propofol drip patient is on assist-control ventilation 50% FiO2 pupils and patient does have bilateral airspace disease bilateral pleural effusions patient remains on Zosyn and vancomycin patient remains on norepinephrine, amiodarone and Cardizem drips. Patient presently has an NG tube and J-tube 02/22/2020 Patient remains on ventilator support patient has significant out from the NG tube barely getting anything to J-tube his prognosis is externally poor will discuss with the family regarding his overall goals of care again. Potassium is extremely low and replaced. Patient remains on pressor support at 5 mcgs per ho ur. 02/23/2020 Patient failed the weaning trial today. Patient continues to be on norepinephrine. Patient went settings are bit better today is some pulmonary edema on the chest x-ray. Patient has about 300 mL from OG tube. Patient is receiving J-tube feedings at a very slow rate 08/25/2019. Patient is a mechanical ventilator failed weaning today patient RSBI was 66. Patient is presently on assist-control ventilation patient's heart rate is presently controlled with frequent PVCs, patient OG tube output is very minimal patient is presently receiving J-tube feedings at that 20-25 mL/h target is 30 mL per hour believe patient is presently not on any pressor support patient is presently on metoprolol Review of systems: Unable to obtain due to his clinical condition All inpatient medications were reviewed and appropriate changes in these medications as dictated in the interval history and assessment and plan. Objective - Vital Signs Vital signs: Vital Signs Temp 99.2 F 02/24/20 08:00 Pulse 59 L 02/24/20 11:46 Resp 19 02/24/20 10:00 BP 127/78 02/24/20 09:15 Pulse Ox 92 L 02/24/20 10:00 Intake & Output 02/23/20 02/24/20 02/24/20 18:59 06:59 18:59 Intake Total 689.013 828.768 490.525 Output Total 3488 820 2650 Balance -2798.987 8.768 -2159.475 Weight 74 kg 71.5 kg Intake: IV 474 292 196 0.9 NACL 10 0.9 Normal Saline as 69 72 36 pressure bag @ 3mL/hr Piperacillin-Tazobactam 3 200 100 100 .375 gm In Sodium Chloride 0.9% 100 ml @ 25 mls/hr IVPB Q8HR [facility] Rx# :[id number] Sodium Chloride 0.9% 1, 195 120 60 000 ml @ 10 mls/hr IV . Q24H [facility]ER Rx#:[id number] Intake, IV Titration 110.013 286.768 114.525 Amount Heparin Sod,Pork in 0.45% 245.412 NaCl 25,000 unit In 0.45 % NaCl 1 250ml.bag @ 12 UNITS/KG/HR 7.92 mls/hr IV .Q24H EDER Rx#: [id number] Norepinephrine 32 mg In 10.013 41.356 5.160 Sodium Chloride 0.9% 218 ml @ 0.05 MCG/KG/MIN 1. 441 mls/hr IV .Q24H EDER Rx#:[id number] propofoL 1,000 mg In 100.000 109.365 Empty Bag 1 bag @ Titrate IV .Q0M EDER Rx#: [id number] Tube Feeding 45 160 120 Other 60 90 60 Output: Gastric Drainage 200 100 Urine 3288 820 2550 Other: Voiding Method Indwelling Catheter Indwelling Catheter Indwelling Catheter ABP, PAP, CO, CI - Last Documented Arterial Blood Pressure 97/52 - Exam PHYSICAL EXAMINATION: GENERAL: Patient is intubated sedated HEENT: Pupils are round and equally reacting to light. EOMI. No scleral icterus. No conjunctival pallor. Normocephalic, atraumatic. No pharyngeal erythema. No thyromegaly. CARDIOVASCULAR: S1 and S2 present. No murmurs, rubs, or gallops. PULMONARY: Diffuse bilateral rhonchi and crackles bibasilar ABDOMEN: Soft, nontender, nondistended, normoactive bowel sounds. No palpable organomegaly. MUSCULOSKELETAL: No joint swelling or deformity. EXTREMITIES: No cyanosis, clubbing, or pedal edema. NEUROLOGICAL: Patient is intubated sedated SKIN: No rashes. - Labs CBC & Chem 7: 02/24/20 03:40 02/24/20 03:40 Labs: Abnormal Lab Results - Last 24 Hours (Table) 02/23/20 02/23/20 02/23/20 Range/Units 11:20 18:12 23:30 RBC (4.30-5.90) m/uL Hgb (13.0-17.5) gm/dL Hct (39.0-53.0) % Neutrophils # (1.3-7.7) k/uL PT (9.0-12.0) sec INR (<1.2) APTT (22.0-30.0) sec ABG pH (7.35-7.45) ABG pO2 (83-108) mmHg ABG HCO3 (21-25) mmol/L ABG Total CO2 (19-24) mmol/L ABG O2 Saturation (94-97) % Chloride (98-107) mmol/L Carbon Dioxide (22-30) mmol/L Glucose (74-99) mg/dL POC Glucose (mg/dL) 103 H 102 H (75-99) mg/dL Calcium (8.4-10.2) mg/dL Phosphorus 2.2 L (2.5-4.5) mg/dL AST (17-59) U/L ALT (4-49) U/L Alkaline Phosphatase (38-126) U/L Total Protein (6.3-8.2) g/dL Albumin (3.5-5.0) g/dL 02/24/20 02/24/20 02/24/20 Range/Units 03:40 03:40 03:40 RBC 3.99 L (4.30-5.90) m/uL Hgb 11.6 L (13.0-17.5) gm/dL Hct 36.0 L (39.0-53.0) % Neutrophils # 8.8 H (1.3-7.7) k/uL PT 13.2 H (9.0-12.0) sec INR 1.3 H (<1.2) APTT 43.6 H (22.0-30.0) sec ABG pH (7.35-7.45) ABG pO2 (83-108) mmHg ABG HCO3 (21-25) mmol/L ABG Total CO2 (19-24) mmol/L ABG O2 Saturation (94-97) % Chloride 110 H (98-107) mmol/L Carbon Dioxide 31 H (22-30) mmol/L Glucose 130 H (74-99) mg/dL POC Glucose (mg/dL) (75-99) mg/dL Calcium 7.4 L (8.4-10.2) mg/dL Phosphorus (2.5-4.5) mg/dL AST 198 H (17-59) U/L ALT 446 H (4-49) U/L Alkaline Phosphatase 142 H (38-126) U/L Total Protein 5.2 L (6.3-8.2) g/dL Albumin 2.2 L (3.5-5.0) g/dL 1002/24/20 02/24/20 Range/Units 03:41 05:49 09:03 RBC (4.30-5.90) m/uL Hgb (13.0-17.5) gm/dL Hct (39.0-53.0) % Neutrophils # (1.3-7.7) k/uL PT (9.0-12.0) sec INR (<1.2) APTT (22.0-30.0) sec ABG pH 7.49 H 7.52 H (7.35-7.45) ABG pO2 129 H 82 L (83-108) mmHg ABG HCO3 29 H 29 H (21-25) mmol/L ABG Total CO2 30 H 31 H (19-24) mmol/L ABG O2 Saturation 98.9 H (94-97) % Chloride (98-107) mmol/L Carbon Dioxide (22-30) mmol/L Glucose (74-99) mg/dL POC Glucose (mg/dL) 110 H (75-99) mg/dL Calcium (8.4-10.2) mg/dL Phosphorus (2.5-4.5) mg/dL AST (17-59) U/L ALT (4-49) U/L Alkaline Phosphatase (38-126) U/L Total Protein (6.3-8.2) g/dL Albumin (3.5-5.0) g/dL 02/24/20 Range/Units 11:57 RBC (4.30-5.90) m/uL Hgb (13.0-17.5) gm/dL Hct (39.0-53.0) % Neutrophils # (1.3-7.7) k/uL PT (9.0-12.0) sec INR (<1.2) APTT (22.0-30.0) sec ABG pH (7.35-7.45) ABG pO2 (83-108) mmHg ABG HCO3 (21-25) mmol/L ABG Total CO2 (19-24) mmol/L ABG O2 Saturation (94-97) % Chloride (98-107) mmol/L Carbon Dioxide (22-30) mmol/L Glucose (74-99) mg/dL POC Glucose (mg/dL) 112 H (75-99) mg/dL Calcium (8.4-10.2) mg/dL Phosphorus (2.5-4.5) mg/dL AST (17-59) U/L ALT (4-49) U/L Alkaline Phosphatase (38-126) U/L Total Protein (6.3-8.2) g/dL Albumin (3.5-5.0) g/dL Microbiology - Last 24 Hours (Table) 02/19/20 16:59 Blood Culture - Preliminary Blood No Growth after 96 hours Assessment and Plan Plan: -Acute hypoxic respiratory failure secondary to pneumonia predominantly in the right. patient does have pleural effusions on both sides. Patient is on Zosyn at this time there is a concern for aspiration. Patient is presently intubated on assist-control ventilation please referred to pulmonology documentation for went settings. Failed weaning trial today -Septic shock: Shock resolved patient is off norepinephrine -Paraxysmal Atrial fibrillation with rapid ventricular rate Patient is being switched to Eliquis. Patient is presently on amiodarone, off Cardizem. -gastroesophageal reflux disease, patient said J-tube feedings were reinitiated and patient has significant output from the NG tube -Hypertension -benign prostatic hypertrophy -History of renal cancer and esophageal cancer with dysphagia and a J-tube . -History of cerebral aneurysm. -KAROL His overall prognosis is extremely poor
[2020-02-24] MEDS: SODIUM CHLORIDE 0.9% 1,000 ML IV SCH (14:30)
[2020-02-24] MEDS: NYSTATIN 100,000 UNIT/GM POWD 15 GM TOPICAL SCH ×2 (14:31→21:24)
[2020-02-24 17:59] LABS: Glucose,Whole Blood 121 mg/dL (75-99)
[2020-02-24 23:44] LABS: Glucose,Whole Blood 105 mg/dL (75-99)
[2020-02-25] MEDS: INSULIN ASPART (NovoLOG) 100 UNIT/ML VIAL SQ SCH ×5 (00:58→23:57)
[2020-02-25] MEDS: METOCLOPRAMIDE 5 MG/ML 2 ML VIAL IVP SCH ×4 (01:05→17:56)
[2020-02-25] MEDS: PIPERACILLIN-TAZOBACTAM 3.375 GM in SODIUM CHLORIDE 0.9% 100 ML IVPB SCH ×3 (01:05→15:53)
[2020-02-25 05:11] LABS: ABG HCO3 30 mmol/L (21-25); ABG PCO2 37 mmHg (35-45); ABG PO2 94 mmHg (83-108); ABG TCO2 31 mmol/L (19-24); Allen Test Performed? Yes
[2020-02-25 05:12] LABS: ABG Base Excess 6.5 mmol/L
[2020-02-25 05:23] LABS: Glucose,Whole Blood 117 mg/dL (75-99)
[2020-02-25 05:30] LABS: HCT 31.5 % (39.0-53.0); HGB 10.3 gm/dL (13.0-17.5); Hypochromasia Slight; MCH 29.5 pg (25.0-35.0); MCHC 32.6 g/dL (31.0-37.0); MCV 90.7 fL (80.0-100.0); Mean Platelet Volume 9.2; Platelet Count 222 k/uL (150-450); RBC 3.47 m/uL (4.30-5.90); RDW 14.8 % (11.5-15.5); WBC 9.2 k/uL (3.8-10.6)
[2020-02-25 05:41] LABS: INR 1.2 (<1.2)
[2020-02-25 05:42] LABS: Partial Thromboplastin Time 47.6 sec (22.0-30.0)
[2020-02-25 05:59] LABS: Glucose,Whole Blood 123 mg/dL (75-99)
[2020-02-25 06:06] LABS: African American GFR (CKD) >90 (>60 ml/min/1.73 sqM); Anion Gap 2 mmol/L; Blood Urea Nitrogen 21 mg/dL (9-20); Calcium 7.7 mg/dL (8.4-10.2); Carbon Dioxide 30 mmol/L (22-30); Chloride 110 mmol/L (98-107); Glucose 127 mg/dL (74-99); Non-African American GFR(CKD) >90 (>60 ml/min/1.73 sqM); Potassium 3.7 mmol/L (3.5-5.1); Sodium 142 mmol/L (137-145)
[2020-02-25] MEDS ORDERED: POTASSIUM BICARBONATE/CIT AC 20 MEQ TABLET.EFF NG-TUBE SCH (07:00)
[2020-02-25] MEDS: IPRATROPIUM-ALBUTEROL 3 ML NEB INHALATION SCH ×4 (07:44→19:25)
[2020-02-25] MEDS: CHLORHEXIDINE GLUCONATE 15 ML CUP MUCOUS MEM SCH ×2 (09:37→21:10)
[2020-02-25] MEDS: NYSTATIN 100,000 UNIT/GM POWD 15 GM TOPICAL SCH ×2 (09:37→21:10)
[2020-02-25] MEDS: AMIODARONE 200 MG TAB PO SCH ×2 (09:37→21:09)
[2020-02-25] MEDS: METOPROLOL TARTRATE 25 MG TAB PO SCH ×2 (09:37→21:10)
[2020-02-25] MEDS: PANTOPRAZOLE 40 MG/10 ML VIAL IVP SCH (09:37)
--- NOTE | 2020-02-25 10:10 | XR ---
EXAMINATION TYPE: XR chest 1V portable DATE OF EXAM: 02/25/2020 CLINICAL HISTORY: Tube placement TECHNIQUE: Semiupright portable view of the chest COMPARISON: 02/24/2020 chest radiograph FINDINGS: Endotracheal tube distal tip midway between the javan and the clavicles. Left subclavian central venous catheter distal tip over the cavoatrial junction. Enteric tube distal tip and side-por t overlie the cardiac silhouette in the region of the gastric pull-through. Incompletely visualized r ight sided ventriculoperitoneal shunt. The cardiomediastinal silhouette is within normal limits for s ize. Bibasilar airspace opacities and bilateral pleural effusions are unchanged. Degenerative changes of the shoulders. IMPRESSION: 1. Similar appearance of tubes and lines given differences in technique. 2. Unchanged bibasilar airspace opacities and bilateral pleural effusions versus 02/24/2020.
--- NOTE | 2020-02-25 10:12 | P.PN ---
Subjective This is a pleasant 64-year-old male past medical history significant for paroxysmal atrial fibrillation on long-term anticoagulation, esophageal cancer with J-tube in place, hypertension and brain aneurysm in the past. He follows in the office with Dr. Claros. He currently on mechanical ventilation. He is currently maintaining sinus rhythm with heart rate 74 and arterial blood pressure 118/59. Currently maintained on amiodarone, heparin infusion and lopressor. Coumadin has been discontinued per the casting sorter. Laboratory data reviewed, WBC 9.2, hgb 10.3, plt 222, pH 7.5, pCO2 37, bicarb 30, sodium 142, potassium 3.7, creatinine 0.77 and INR 1.2. GENERAL: Comfortable in bed on mechanical ventilation. NECK: Supple without JVD or thyromegaly. LUNGS: Respiration equal and unlabored. Diminished bilaterally. HEART: Regular rate and rhythm without murmurs, rubs or gallops. S1 and S2 heard. EXTREMITIES: Normal range of motion, diffuse edema noted, nonpitting. No clubbing or cyanosis. Peripheral pulses intact. 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 Nurse Practitioner note has been reviewed, I agree with a documented findings and plan of care. Patient was seen and examined. Objective - Vital Signs Vital signs: Vital Signs Temp 98.4 F 02/25/20 04:00 Pulse 74 02/25/20 07:56 Resp 21 02/25/20 07:00 BP 115/82 02/25/20 07:00 Pulse Ox 93 L 02/25/20 07:00 Intake & Output 02/24/20 02/25/20 02/25/20 18:59 06:59 18:59 Intake Total 887.761 836.992 46 Output Total 3565 655 30 Balance -2677.239 181.992 16 Weight 65 kg Intake: IV 392 192 16 0.9 Normal Saline as 72 72 6 pressure bag @ 3mL/hr Piperacillin-Tazobactam 3 200 .375 gm In Sodium Chloride 0.9% 100 ml @ 25 mls/hr IVPB Q8HR [facility] Rx# :[id number] Sodium Chloride 0.9% 1, 120 120 10 000 ml @ 10 mls/hr IV . Q24H [facility] Rx#:[id number] Intake, IV Titration 135.761 299.992 Amount Heparin Sod,Pork in 0.45% 240.575 NaCl 25,000 unit In 0.45 % NaCl 1 250ml.bag @ 12 UNITS/KG/HR 7.92 mls/hr IV .Q24H [facility] Rx#: [id number] Norepinephrine 32 mg In 5.160 Sodium Chloride 0.9% 218 ml @ 0.05 MCG/KG/MIN 1. 441 mls/hr IV .Q24H [facility] Rx#:[id number] propofoL 1,000 mg In 130.601 59.417 Empty Bag 1 bag @ Titrate IV .Q0M [facility] Rx#: [id number] Tube Feeding 270 285 30 Other 90 60 Output: Gastric Drainage 300 Urine 3265 505 30 Oral Regurgitation 150 Other: Voiding Method Indwelling Catheter Indwelling Catheter ABP, PAP, CO, CI - Last Documented Arterial Blood Pressure 118/59 - Labs CBC & Chem 7: 02/25/20 05:00 02/25/20 05:00 Labs: Abnormal Lab Results - Last 24 Hours (Table) 02/24/20 02/24/20 02/24/20 Range/Units 09:03 11:57 17:57 RBC (4.30-5.90) m/uL Hgb (13.0-17.5) gm/dL Hct (39.0-53.0) % INR (<1.2) APTT (22.0-30.0) sec ABG pH 7.52 H (7.35-7.45) ABG pO2 82 L (83-108) mmHg ABG HCO3 29 H (21-25) mmol/L ABG Total CO2 31 H (19-24) mmol/L ABG O2 Saturation (94-97) % Chloride (98-107) mmol/L BUN (9-20) mg/dL Glucose (74-99) mg/dL POC Glucose (mg/dL) 112 H 121 H (75-99) mg/dL Calcium (8.4-10.2) mg/dL 02/24/20 02/25/20 02/25/20 Range/Units 23:42 05:00 05:00 RBC (4.30-5.90) m/uL Hgb (13.0-17.5) gm/dL Hct (39.0-53.0) % INR 1.2 H (<1.2) APTT 47.6 H (22.0-30.0) sec ABG pH (7.35-7.45) ABG pO2 (83-108) mmHg ABG HCO3 (21-25) mmol/L ABG Total CO2 (19-24) mmol/L ABG O2 Saturation (94-97) % Chloride 110 H (98-107) mmol/L BUN 21 H (9-20) mg/dL Glucose 127 H (74-99) mg/dL POC Glucose (mg/dL) 105 H (75-99) mg/dL Calcium 7.7 L (8.4-10.2) mg/dL 02/25/20 02/25/20 02/25/20 Range/Units 05:00 05:04 05:21 RBC 3.47 L (4.30-5.90) m/uL Hgb 10.3 L (13.0-17.5) gm/dL Hct 31.5 L (39.0-53.0) % INR (<1.2) APTT (22.0-30.0) sec ABG pH 7.50 H (7.35-7.45) ABG pO2 (83-108) mmHg ABG HCO3 30 H (21-25) mmol/L ABG Total CO2 31 H (19-24) mmol/L ABG O2 Saturation 98.0 H (94-97) % Chloride (98-107) mmol/L BUN (9-20) mg/dL Glucose (74-99) mg/dL POC Glucose (mg/dL) 117 H (75-99) mg/dL Calcium (8.4-10.2) mg/dL 02/25/20 Range/Units 05:58 RBC (4.30-5.90) m/uL Hgb (13.0-17.5) gm/dL Hct (39.0-53.0) % INR (<1.2) APTT (22.0-30.0) sec ABG pH (7.35-7.45) ABG pO2 (83-108) mmHg ABG HCO3 (21-25) mmol/L ABG Total CO2 (19-24) mmol/L ABG O2 Saturation (94-97) % Chloride (98-107) mmol/L BUN (9-20) mg/dL Glucose (74-99) mg/dL POC Glucose (mg/dL) 123 H (75-99) mg/dL Calcium (8.4-10.2) mg/dL Microbiology - Last 24 Hours (Table) 02/24/20 14:45 Gram Stain - Preliminary Other - Other Wound Culture - Preliminary 02/19/20 16:59 Blood Culture - Preliminary Blood No Growth after 120 hours
[2020-02-25] MEDS: NOREPINEPHRINE 32 MG in SODIUM CHLORIDE 0.9% 218 ML IV SCH (11:01)
--- NOTE | 2020-02-25 12:30 | US ---
EXAMINATION TYPE: US chest DATE OF EXAM: 02/25/2020 COMPARISON: NONE CLINICAL HISTORY: bilat effusions. TECHNIQUE: Targeted ultrasound of the posterior lower bilateral hemithoraces EXAM MEASUREMENTS: Right Pleural Effusion pocket size: 1.8 cm Right skin surface to fluid distance: 2.5 cm Left Pleural Effusion pocket size: 0.6 cm Left skin surface to fluid distance: 1.6 cm IMPRESSIONS: Tiny bilateral pleural effusions.
[2020-02-25 12:34] LABS: Glucose,Whole Blood 112 mg/dL (75-99)
[2020-02-25] MEDS: SODIUM CHLORIDE 0.9% 1,000 ML IV SCH (12:38)
--- NOTE | 2020-02-25 12:59 | P.PN ---
Subjective Acute hypoxic respiratory failure probably secondary to pneumonia 64-year-old the male admitted for pneumonia bilateral, predominantly in the right lower lobes. There is a concern about aspiration patient has been vomiting. Patient does take a modified diet by mouth at home does have a PEG tube in place. Patient the antibiotics were changed to Zosyn which is appropriate. Patient went into respiratory distress on some requirements have gone up because of which patient was transferred to ICU later in the day patient started having A. fib with rapid ventricular rate because of which patient was started on Cardizem and cardiology was consulted. I'm also consulting speech therapy because of his swallowing issues to assess if her appropriate for the patient to be continued on modified diet by mouth. 02/13/2020 Patient clinically looks better patient is being continued on Zosyn continued on IV fluids. Patient will undergo swallow evaluation today speech therapy was consulted. Patient remains nothing by mouth patient is being started on Eliquis for the atrial fibrillation anticoagulation patient is presently on oral amiodarone heart rate is better controlled today. On 02/14/2020 Patient is currently sitting in the chair comfortably. Still having baseline shortness of breath and bibasilar crackles on examination. Currently on high flow oxygen. Chest x-ray showed findings are not significantly changed. Basilar effusions an d associated atelectasis versus pulmonary edema. Patient is being continued on IV antibiotic without Zosyn for possible aspiration and also a dose of Lasix IV was given. Patient has been continued on telemetry monitoring and heart rate is better controlled. Current medications reviewed. 02/15/2020 Patient is currently sitting in the chair comfortably. Saturating around 95% on 6 L oxygen via nasal cannula. Patient was started back on tube feedings today. Patient otherwise denied any complaints of chest pain worsening shortness breath. No nausea vomiting. Denied any abdominal pain. Currently maintaining sinus rhythm. Continued on Eliquis and amiodarone and cardiology is on board. Chest x-ray showed findings are not significantly changed. Basilar effusions and associated atelectasis versus pulmonary edema/pneumonia. Patient is on antibiotics in the form of Zosyn. Laboratory data showed WBC 10.7, hemoglobin 12.8 and platelets of 224 BUN is 18 and creatinine 0.58 Pulmonary and cardiology and general surgery is on board. Current medications reviewed On 02/16/2020 Patient is currently sitting in chair comfortably. Pulse ox about 90s at 3 L via nasal cannula. No fever no chills. Patient is being continued IV antibiotics.tube feedings were started and advance as tolerated. Blood and sputum cultures show no growth. Wound cultures from the abdomen showed Cassie albicans. Continued on dressing changes. No surgical intervention recommended. General surgery has seen the patient. Laboratory data showed WBC 10.0 hemoglobin 12.0 and platelets 253 BUN 16 and creatinine 0.61 patient is being transferred to general medical floor. 02/17/2020 Patient is currently lying in the bed comfortably. Still requiring oxygen at 3 L via nasal cannula. Awake alert oriented but lethargic. No fever no chills. Patient is being continued on antibiotics now for Zosyn. Chest x-ray showed right basilar infiltrates with small bilateral pleural effusions stable from comparison. Patient is tolerating tube feedings at 50 cc/h PEG tube site wound cultures showed Cassie albicans. Patient is being continued on duo nebs and Pulmicort. Heart rate is controlled. Anticoagulation with Eliquis and also on amiodarone and metoprolol 3 times daily. Cardiology and pulmonary is following. Laboratory data showed potassium 3.7, BUN 16 and creatinine 0.6 and hemoglobin 12.3 WBC 9.4 Discussed with his at bedside in detail. 02/18/2020 Patient had a repeat CAT scan which did show the infiltrates that were present before no significant worsening of these infiltrates. Patient cannot take an ything via by mouth but will continue his J-tube feedings. 02/19/2020 Patient was doing well earlier today morning and subsequently went into respiratory failure again presently requiring BiPAP. Repeat chest x-ray did not show any new infiltrate. 02/20/2020 Patient underwent respiratory failure patient is presently intubated patient the is on pressor support as well. Patient coded with asystole for few minutes and was successfully resuscitated after that patient does have pupillary reflexes patient did receive a paralytic agents because of which unable to assess the cough or gag reflex at this time. 02/21/2020 Patient can use to be a mechanical ventilator on propofol drip patient is on assist-control ventilation 50% FiO2 pupils and patient does have bilateral airspace disease bilateral pleural effusions patient remains on Zosyn and vancomycin patient remains on norepinephrine, amiodarone and Cardizem drips. Patient presently has an NG tube and J-tube 02/22/2020 Patient remains on ventilator support patient has significant out from the NG tube barely getting anything to J-tube his prognosis is externally poor will discuss with the family regarding his overall goals of care again. Potassium is extremely low and replaced. Patient remains on pressor support at 5 mcgs per ho ur. 02/23/2020 Patient failed the weaning trial today. Patient continues to be on norepinephrine. Patient went settings are bit better today is some pulmonary edema on the chest x-ray. Patient has about 300 mL from OG tube. Patient is receiving J-tube feedings at a very slow rate 02/24/2020. Patient is a mechanical ventilator failed weaning today patient RSBI was 66. Patient is presently on assist-control ventilation patient's heart rate is presently controlled with frequent PVCs, patient OG tube output is very minimal patient is presently receiving J-tube feedings at that 20-25 mL/h target is 30 mL per hour believe patient is presently not on any pressor support patient is presently on metoprolol 02/25/2020 Patient is on sedation when I valid the patient patient is awake and answering questions with head nodding denied any pain remains on ventilator support appears to have been improving but extremely slowly. Patient is presently on IV heparin and Coumadin is on hold Review of systems: Unable to obtain due to his clinical condition All inpatient medications were reviewed and appropriate changes in these medications as dictated in the interval history and assessment and plan. Objective - Vital Signs Vital signs: Vital Signs Temp 98.3 F 02/25/20 08:00 Pulse 71 02/25/20 11:37 Resp 23 02/25/20 11:00 BP 110/73 02/25/20 11:00 Pulse Ox 94 L 02/25/20 11:00 Intake & Output 02/24/20 02/25/20 02/25/20 18:59 06:59 18:59 Intake Total 887.761 836.992 383.531 Output Total 3565 655 415 Balance -2677.239 181.992 -31.469 Weight 65 kg Intake: IV 392 192 203 0.9 Normal Saline as 72 72 43 pressure bag @ 3mL/hr Piperacillin-Tazobactam 3 200 100 .375 gm In Sodium Chloride 0.9% 100 ml @ 25 mls/hr IVPB Q8HR [facility] Rx# :[id number] Sodium Chloride 0.9% 1, 120 120 60 000 ml @ 10 mls/hr IV . Q24H [facility] Rx#:[id number] Intake, IV Titration 135.761 299.992 30.531 Amount Heparin Sod,Pork in 0.45% 240.575 NaCl 25,000 unit In 0.45 % NaCl 1 250ml.bag @ 12 UNITS/KG/HR 7.92 mls/hr IV .Q24H [facility]ER Rx#: [id number] Norepinephrine 32 mg In 5.160 Sodium Chloride 0.9% 218 ml @ 0.05 MCG/KG/MIN 1. 441 mls/hr IV .Q24H EDER Rx#:[id number] propofoL 1,000 mg In 130.601 59.417 30.531 Empty Bag 1 bag @ Titrate IV .Q0M EDER Rx#: [id number] Tube Feeding 270 285 120 Other 90 60 30 Output: Gastric Drainage 300 Urine 3265 505 415 Oral Regurgitation 150 Other: Voiding Method Indwelling Catheter Indwelling Catheter Indwelling Catheter ABP, PAP, CO, CI - Last Documented Arterial Blood Pressure 134/60 - Exam PHYSICAL EXAMINATION: GENERAL: Patient is intubated, off sedation and is awake HEENT: Pupils are round and equally reacting to light. EOMI. No scleral icterus. No conjunctival pallor. Normocephalic, atraumatic. No pharyngeal erythema. No thyromegaly. CARDIOVASCULAR: S1 and S2 present. No murmurs, rubs, or gallops. PULMONARY: Diffuse bilateral rhonchi and crackles bibasilar ABDOMEN: Soft, nontender, nondistended, normoactive bowel sounds. No palpable organomegaly. MUSCULOSKELETAL: No joint swelling or deformity. EXTREMITIES: No cyanosis, clubbing, or pedal edema. NEUROLOGICAL: Patient is awake and nodding head off sedation presently SKIN: No rashes. - Labs CBC & Chem 7: 02/25/20 05:00 02/25/20 05:00 Labs: Abnormal Lab Results - Last 24 Hours (Table) 02/24/20 02/24/20 02/25/20 Range/Units 17:57 23:42 05:00 RBC (4.30-5.90) m/uL Hgb (13.0-17.5) gm/dL Hct (39.0-53.0) % INR 1.2 H (<1.2) APTT 47.6 H (22.0-30.0) sec ABG pH (7.35-7.45) ABG HCO3 (21-25) mmol/L ABG Total CO2 (19-24) mmol/L ABG O2 Saturation (94-97) % Chloride (98-107) mmol/L BUN (9-20) mg/dL Glucose (74-99) mg/dL POC Glucose (mg/dL) 121 H 105 H (75-99) mg/dL Calcium (8.4-10.2) mg/dL 02/25/20 02/25/20 02/25/20 Range/Units 05:00 05:00 05:04 RBC 3.47 L (4.30-5.90) m/uL Hgb 10.3 L (13.0-17.5) gm/dL Hct 31.5 L (39.0-53.0) % INR (<1.2) APTT (22.0-30.0) sec ABG pH 7.50 H (7.35-7.45) ABG HCO3 30 H (21-25) mmol/L ABG Total CO2 31 H (19-24) mmol/L ABG O2 Saturation 98.0 H (94-97) % Chloride 110 H (98-107) mmol/L BUN 21 H (9-20) mg/dL Glucose 127 H (74-99) mg/dL POC Glucose (mg/dL) (75-99) mg/dL Calcium 7.7 L (8.4-10.2) mg/dL 02/25/20 02/25/20 02/25/20 Range/Units 05:21 05:58 12:33 RBC (4.30-5.90) m/uL Hgb (13.0-17.5) gm/dL Hct (39.0-53.0) % INR (<1.2) APTT (22.0-30.0) sec ABG pH (7.35-7.45) ABG HCO3 (21-25) mmol/L ABG Total CO2 (19-24) mmol/L ABG O2 Saturation (94-97) % Chloride (98-107) mmol/L BUN (9-20) mg/dL Glucose (74-99) mg/dL POC Glucose (mg/dL) 117 H 123 H 112 H (75-99) mg/dL Calcium (8.4-10.2) mg/dL Microbiology - Last 24 Hours (Table) 02/24/20 14:45 Gram Stain - Preliminary Other - Other Wound Culture - Preliminary 02/19/20 16:59 Blood Culture - Preliminary Blood No Growth after 120 hours Assessment and Plan Plan: -Acute hypoxic respiratory failure secondary to pneumonia predominantly in the right. patient does have pleural effusions on both sides. Patient is on Zosyn at this time there is a concern for aspiration. Patient is presently intubated on assist-control ventilation please referred to pulmonology documentation for went settings. Failed weaning trial today -Septic shock: Shock resolved patient is off norepinephrine -Paraxysmal Atrial fibrillation with rapid ventricular rate Patient is being switched to Eliquis. Patient is presently on amiodarone, off Cardizem. -gastroesophageal reflux disease, patient said J-tube feedings were reinitiated and patient has significant output from the NG tube -Hypertension -benign prostatic hypertrophy -History of renal cancer and esophageal cancer with dysphagia and a J-tube . -History of cerebral aneurysm. -KAROL His overall prognosis is extremely poor
--- NOTE | 2020-02-25 13:24 | P.PN ---
Subjective Progress Note Date: 02/25/20 Principal diagnosis: Acute hypoxic respiratory failure secondary to aspiration pneumonia. This is a 64-year-old white male patient of Dr. Claude Deluna that was admitted through the emergency department on 02/11/2020 when he came in for evaluation of shortness of breath, hypoxemia. Patient has a known history of esophageal cancer status post chemotherapy and NG tube placement, has a known history of COPD and CHF. Patient was started on empiric antibiotics in the form of Zosyn, nebulized bronchodilators, and diuretics, did require high flow oxygen per Airvo, which was discontinued yesterday, patient is currently on 6 L of oxygen per high flow nasal cannula with a pulse ox of 93-95%, his tube feedings were held yesterday related to some leaking around the bolster, surgical services were consulted and Dr. Styles adjusted the bolster, and tube feedings were resumed today, with TwoCal HN currently at 10 ML per hour. Of note previously patient was receiving tube feedings and consuming some nausea fluids by mouth. He is currently strict nothing by mouth, and receiving all of his nutrition via his J-tube. He is sounding much less congested today, bronchospastic, breathing easier, more comfortably, he sitting up in the chair. His vital signs are stable, his been afebrile, hemodynamically stable, 0.9 normal saline infusing at a rate of 20 ML per hour, yesterday he received a dose of Lasix, and he produces 2.8 L and urine output, he is -1.4 L over last 24 hours, indwelling catheter is in place. On admission patient was in A. fib with RVR, he is currently in sinus mechanism, he is on oral amiodarone and Eliquis for anticoagulation, cardiology services are following. Today's chest x-ray has been reviewed, showing stable diffuse pleural parenchymal disease related to aspiration pneumonia. Today's labs have been reviewed, showing white blood cell, 10.7, hemoglobin of 12.8, sodium is 140, potassium is 3.4, the rest of electrolytes were within normal limits, BUN is 18 creatinine 0.58. All microbiology has shown no growth. He is on Zosyn for antibiotic coverage. On 02/23/2020, the patient is being seen for a follow-up. This morning the patient's upper quadrant 30 mg per KG per minute. I was told by nursing staff the patient was given a sedation holiday yesterday following that the patient aroused and he was able to follow some commands. In general, the patient is doing well. He is hemodynamically stable. He was taken gradually off levo fed and the norepinephrine infusion is currently running at 0.1 g per KG per minute. He is also on normal saline at the rate of 75 mL an hour. Doing well. No specific issues overnight. On a mechanical ventilator, he remains on assist control mode at the rate of 14 with a tidal volume of 450 and FiO2 of 50% with a PEEP of 5. The patient's blood gases from today showed a pH of 7.51 with a pCO2 of 32 and pO2 of 11. Chest x-ray shows increased interstitial markings bilaterally along with a component of pulmonary edema in addition to gastric pull-through and lower lobe consolidations and effusions that are present on previous evaluations. I feel that the patient is going into some degree of fluid overload. The neck fluid balance is been +2.8 L over the past 24 hours. The sputum culture was positive for Klebsiella. The patient is afebrile. No other issues for now. J-tube feeding will be started today. NG tube in place and output has been only 150 mL over the past 12 hours. The patient is covered with Zosyn and vancomycin and the vancomycin will be discontinued. On 02/24/2020, the patient is being seen for a follow-up. Patient is getting another sedation holiday as the patient may be able to wean off the mechanical ventilator. He is on a minimal dose of propofol for now. He is on a assist control mode of ventilation at the rate of 14 with a tidal volume of 450 and FiO2 of 35% with a PEEP of 5. PH is at 7.48 with a pCO2 of 40 and pO2 148. IV fluids at KVO. The patient remains on IV heparin. The patient remains on levo fed at 0.06 units per KG per minute. He is receiving enteral feeding with protein high-calorie at the rate of 50 mL an hour. NG tube is in place and output is minimal at this point in time. The patient was given Lasix yesterday 40 mg IV push and the neck fluid balance has been -2.7 L. Chest x-ray showing some improvement in the volume status. ET tube is in a good location. NG tube in good location. Further diuresis may be of benefit. No abdominal distention. Adequate pulses in all 4 extremities. Arousable. He is in the process of getting a sedation holiday to be checked for his weaning parameters. Patient was reevaluated today on 02/25/20, remains in the ICU, remains intubated and mechanically ventilated. His ventilator settings are assist control rate of 14, volume control plus with tidal volume is 450 FiO2 35% PEEP of 5. ABG this a.m. showed a pO2 of 94 pCO2 of 37 pH of 7.50. Patient was initially admitted on 02/10 and he was intubated on 02/18 when the rapid response team responded to a CODE BLUE. Patient is on propofol at 10 mcg/kg/m, he is also on heparin, and not requiring any pressors. Over the last few days, patient had multiple trials of spontaneous breathing trials and definitely some of them were done over the weekend, however the patient lasted at the most 455 minutes. Remains on tube feeding at 30 MLS per hour. Chest x-ray today showed evidence of bilateral pleural effusions, and I am recommending ultrasound of the chest, will likely consider thoracentesis on this patient if the fluid is large enough to be drained safely. Ultrasound showed small pockets not safe to drain at this time. The left side is only is 0.6 cm pockets and the right side is only 1.8 cm pocket. All labs were reviewed renal profile is normal. Electrolytes are normal. PTT is therapeutic at 47.6. WBC count is 9.2 hemoglobin is 10 point Objective - Vital Signs Vital signs: Vital Signs Temp 99.7 F H 02/25/20 12:00 Pulse 64 02/25/20 13:00 Resp 19 02/25/20 13:00 BP 98/65 02/25/20 13:00 Pulse Ox 94 L 02/25/20 13:00 Intake & Output 02/24/20 02/25/20 02/25/20 18:59 06:59 18:59 Intake Total 887.761 836.992 383.531 Output Total 3565 655 415 Balance -2677.239 181.992 -31.469 Weight 65 kg Intake: IV 392 192 203 0.9 Normal Saline as 72 72 43 pressure bag @ 3mL/hr Piperacillin-Tazobactam 3 200 100 .375 gm In Sodium Chloride 0.9% 100 ml @ 25 mls/hr IVPB Q8HR [facility] Rx# :[id number] Sodium Chloride 0.9% 1, 120 120 60 000 ml @ 10 mls/hr IV . Q24H [facility] Rx#:[id number] Intake, IV Titration 135.761 299.992 30.531 Amount Heparin Sod,Pork in 0.45% 240.575 NaCl 25,000 unit In 0.45 % NaCl 1 250ml.bag @ 12 UNITS/KG/HR 7.92 mls/hr IV .Q24H [facility] Rx#: [id number] Norepinephrine 32 mg In 5.160 Sodium Chloride 0.9% 218 ml @ 0.05 MCG/KG/MIN 1. 441 mls/hr IV .Q24H [facility]ER Rx#:[id number] propofoL 1,000 mg In 130.601 59.417 30.531 Empty Bag 1 bag @ Titrate IV .Q0M [facility] Rx#: [id number] Tube Feeding 270 285 120 Other 90 60 30 Output: Gastric Drainage 300 Urine 3265 505 415 Oral Regurgitation 150 Other: Voiding Method Indwelling Catheter Indwelling Catheter Indwelling Catheter ABP, PAP, CO, CI - Last Documented Arterial Blood Pressure 119/57 - Exam GENERAL EXAM: Revealed a 64-year-old white male, frail looking, chronically ill- looking, on mechanical ventilation, endotracheal tube and orogastric tubes are intact. HEAD: Normocephalic/atraumatic. EENT: PERRLA, EOMI, neck is supple, no neck masses, no JVD, left subclavian central line is noted CHEST: No chest wall deformity. Symmetrical expansion. LUNGS: Minimal fine crackles at the bases, scattered rhonchi noted. CVS: Irregular irregular rhythm, no S3 gallop. No murmur. ABDOMEN: Soft, nontender. No hepatosplenomegaly, normal bowel sounds, no guarding or rigidity. J tube is in place, with the tube feedings infusing, and the patient is tube feeds are currently on hold. EXTREMITIES: No clubbing edema or cyanosis. MUSCULOSKELETAL: Normal muscle tone. Muscle strength could not be assessed. Patient is generally weak. SKIN: No rashes CENTRAL NERVOUS SYSTEM: Arousable in spite of small dose of propofol, follows very simple instructions like squeezing hands and wiggling toes. - Labs CBC & Chem 7: 02/25/20 05:00 02/25/20 05:00 Labs: Abnormal Lab Results - Last 24 Hours (Table) 02/24/20 02/24/20 02/25/20 Range/Units 17:57 23:42 05:00 RBC (4.30-5.90) m/uL Hgb (13.0-17.5) gm/dL Hct (39.0-53.0) % INR 1.2 H (<1.2) APTT 47.6 H (22.0-30.0) sec ABG pH (7.35-7.45) ABG HCO3 (21-25) mmol/L ABG Total CO2 (19-24) mmol/L ABG O2 Saturation (94-97) % Chloride (98-107) mmol/L BUN (9-20) mg/dL Glucose (74-99) mg/dL POC Glucose (mg/dL) 121 H 105 H (75-99) mg/dL Calcium (8.4-10.2) mg/dL 02/25/20 02/25/20 02/25/20 Range/Units 05:00 05:00 05:04 RBC 3.47 L (4.30-5.90) m/uL Hgb 10.3 L (13.0-17.5) gm/dL Hct 31.5 L (39.0-53.0) % INR (<1.2) APTT (22.0-30.0) sec ABG pH 7.50 H (7.35-7.45) ABG HCO3 30 H (21-25) mmol/L ABG Total CO2 31 H (19-24) mmol/L ABG O2 Saturation 98.0 H (94-97) % Chloride 110 H (98-107) mmol/L BUN 21 H (9-20) mg/dL Glucose 127 H (74-99) mg/dL POC Glucose (mg/dL) (75-99) mg/dL Calcium 7.7 L (8.4-10.2) mg/dL 02/25/20 02/25/20 02/25/20 Range/Units 05:21 05:58 12:33 RBC (4.30-5.90) m/uL Hgb (13.0-17.5) gm/dL Hct (39.0-53.0) % INR (<1.2) APTT (22.0-30.0) sec ABG pH (7.35-7.45) ABG HCO3 (21-25) mmol/L ABG Total CO2 (19-24) mmol/L ABG O2 Saturation (94-97) % Chloride (98-107) mmol/L BUN (9-20) mg/dL Glucose (74-99) mg/dL POC Glucose (mg/dL) 117 H 123 H 112 H (75-99) mg/dL Calcium (8.4-10.2) mg/dL Microbiology - Last 24 Hours (Table) 02/24/20 14:45 Gram Stain - Preliminary Other - Other Wound Culture - Preliminary 02/19/20 16:59 Blood Culture - Preliminary Blood No Growth after 120 hours Assessment and Plan Assessment: Impression: Acute hypoxic respiratory failure secondary to aspiration pneumonia. Sputum has been positive for Klebsiella pneumoniae and the patient remains on Zosyn. Suspect some component of acute diastolic congestive heart failure, remains on diuretics. Patient presented initially with hypotension and hypovolemic shock as well as septic shock, given significant amount of fluids, and that may have contributed to his diastolic congestive heart failure along with his atrial fibrillation and RVR. Atrial fibrillation with RVR, improved, patient is on amiodarone. Remains on IV heparin. History of esophageal cancer, patient is status post gastric pull through and being fed through a J-tube. History of seizure disorder. History of brain aneurysm and previous rupture with residual left-sided weakness. And history of seizures related to the aneurysm. Obstructive sleep apnea syndrome not compliant with CPAP. Non-anion gap metabolic acidosis on presentation secondary to sepsis improving/recovered. Medical debility, patient is wheelchair bound. Recommendation: Continue ventilatory support Continue nutritional support, continue to use the J-tube for feeding. Continue GI and DVT prophylaxis. Hemodynamic support if necessary. Continue heparin, arrange for a PICC line on this patient. IV fluids at KVO. Continue diuretics. Ultrasound of the chest was ordered and reviewed, no need for thoracentesis. Continue Zosyn for aspiration pneumonia. Patient will be given weaning trials on a daily basis, and today I plan to hold propofol, and give the patient a weaning trial with pressure support of 14 and CPAP, and will continue to follow in the ICU. Patient remains critically ill, Overall prognosis is extremely poor. We will continue to follow. Critical care time is 35 minutes. Time with Patient: Greater than 30
[2020-02-25] MEDS: HEPARIN SOD,PORK IN 0.45% NACL 25,000 UNIT in 0.45% NACL 1 250ML.BAG IV SCH (16:02)
[2020-02-25 18:01] LABS: Glucose,Whole Blood 112 mg/dL (75-99)
[2020-02-25 23:56] LABS: Glucose,Whole Blood 107 mg/dL (75-99)
[2020-02-26] MEDS: PIPERACILLIN-TAZOBACTAM 3.375 GM in SODIUM CHLORIDE 0.9% 100 ML IVPB SCH ×4 (00:10→23:44)
[2020-02-26] MEDS: METOCLOPRAMIDE 5 MG/ML 2 ML VIAL IVP SCH ×5 (00:10→23:49)
[2020-02-26 04:10] LABS: Basophils % (A) 1 %; Eosinophils # (A) 0.3 k/uL (0-0.7); Eosinophils % (A) 4 %; HGB 9.9 gm/dL (13.0-17.5); Hypochromasia Slight; Lymphocytes # (A) 0.9 k/uL (1.0-4.8); Lymphocytes % (A) 13 %; MCH 28.8 pg (25.0-35.0); MCHC 31.8 g/dL (31.0-37.0); MCV 90.4 fL (80.0-100.0); Mean Platelet Volume 9.1; Monocytes # (A) 0.4 k/uL (0-1.0); Monocytes % (A) 6 %; Neutrophils # (A) 5.2 k/uL (1.3-7.7); Neutrophils % (A) 76 %; Platelet Count 216 k/uL (150-450); RBC 3.43 m/uL (4.30-5.90); RDW 14.8 % (11.5-15.5); WBC 6.9 k/uL (3.8-10.6)
[2020-02-26 04:50] LABS: ALT 184 U/L (4-49); AST 45 U/L (17-59); African American GFR (CKD) >90 (>60 ml/min/1.73 sqM); Alkaline Phosphatase 89 U/L (38-126); Anion Gap 3 mmol/L; Blood Urea Nitrogen 21 mg/dL (9-20); Calcium 7.8 mg/dL (8.4-10.2); Carbon Dioxide 28 mmol/L (22-30); Chloride 109 mmol/L (98-107); Glucose 120 mg/dL (74-99); Non-African American GFR(CKD) >90 (>60 ml/min/1.73 sqM); Potassium 3.9 mmol/L (3.5-5.1); Sodium 140 mmol/L (137-145); Total Bilirubin 0.5 mg/dL (0.2-1.3); Total Protein 4.9 g/dL (6.3-8.2)
[2020-02-26] MEDS ORDERED: POTASSIUM BICARBONATE/CIT AC 20 MEQ TABLET.EFF NG-TUBE SCH (05:00)
[2020-02-26] MEDS: HEPARIN SOD,PORK IN 0.45% NACL 25,000 UNIT in 0.45% NACL 1 250ML.BAG IV SCH (05:24)
[2020-02-26] MEDS: INSULIN ASPART (NovoLOG) 100 UNIT/ML VIAL SQ SCH ×4 (05:32→23:43)
[2020-02-26 05:33] LABS: Glucose,Whole Blood 120 mg/dL (75-99)
[2020-02-26 07:32] LABS: ABG Base Excess 3.8 mmol/L; ABG HCO3 27 mmol/L (21-25); ABG Oxygen Saturation 98.8 % (94-97); ABG PCO2 37 mmHg (35-45); ABG PH 7.48 (7.35-7.45); ABG PO2 110 mmHg (83-108); ABG TCO2 28 mmol/L (19-24)
[2020-02-26 07:33] LABS: Allen Test Performed? no
[2020-02-26] MEDS: IPRATROPIUM-ALBUTEROL 3 ML NEB INHALATION SCH ×4 (08:27→19:24)
[2020-02-26] MEDS: AMIODARONE 200 MG TAB PO SCH ×2 (08:37→21:07)
[2020-02-26] MEDS: PANTOPRAZOLE 40 MG/10 ML VIAL IVP SCH (08:37)
[2020-02-26] MEDS: METOPROLOL TARTRATE 25 MG TAB PO SCH ×2 (08:37→21:07)
[2020-02-26] MEDS: CHLORHEXIDINE GLUCONATE 15 ML CUP MUCOUS MEM SCH ×2 (08:37→21:07)
[2020-02-26] MEDS: NOREPINEPHRINE 32 MG in SODIUM CHLORIDE 0.9% 218 ML IV SCH (08:39)
[2020-02-26] MEDS: NYSTATIN 100,000 UNIT/GM POWD 15 GM TOPICAL SCH ×2 (08:39→21:08)
--- NOTE | 2020-02-26 10:08 | P.PN ---
Subjective This is a pleasant 64-year-old male past medical history significant for paroxysmal atrial fibrillation on long-term anticoagulation, esophageal cancer with J-tube in place, hypertension and brain aneurysm in the past. He follows in the office with Dr. Claros. He currently on mechanical ventilation. He is currently maintaining sinus rhythm with heart rate in the 70's. He is currently awake and following commands. He denies chest pain, shortness of breath, dizziness or palpitations. He is moving his arms and hands on command. Currently maintained only on heparin infusion, oral amiodarone and lopressor 25 mg BID. Coumadin still on hold pending possible PICC line placement and he is also being considered for trach. Blood pressure 108/58. Laboratory data reviewed, WBC 6.9, hemoglobin 9.9, platelets 216,pH 7.48, pO2 110, pCO2 37 and bicarb 27, sodium 140, potassium 3.9 and creatinine 0.7. GENERAL: Comfortable in bed on mechanical ventilation. NECK: Supple without JVD or thyromegaly. LUNGS: Respiration equal and unlabored. Diminished bilaterally. HEART: Regular rate and rhythm without murmurs, rubs or gallops. S1 and S2 heard . EXTREMITIES: Normal range of motion, diffuse edema noted, nonpitting. No clubbing or cyanosis. Peripheral pulses intact. ASSESSMENT Paroxysmal atrial fibrillation on Eliquis for anticoagulation currently maintaining sinus mechanism Acute hypoxic respiratory failure requiring mechanical ventilation Asystole arrest Aspiration pneumonia Lactic acidosis Leukocytosis Acute systolic heart failure s/p cardiac arrest History of esophageal cancer status post J-tube placement Hypertension History of brain aneurysm with [employer] shunt PLAN We recommend resuming coumadin when ok with the pulmonary care team pending possible PICC line and trach placement. Heart rate controlled on current medical regimen. Nurse Practitioner note has been reviewed, I agree with a documented findings and plan of care. Patient was seen and examined. Objective - Vital Signs Vital signs: Vital Signs Temp 98.2 F 02/26/20 04:00 Pulse 75 02/26/20 08:42 Resp 16 02/26/20 07:00 BP 108/58 02/26/20 07:00 Pulse Ox 96 02/26/20 07:00 Intake & Output 02/25/20 02/26/20 02/26/20 18:59 06:59 18:59 Intake Total 754.566 753.263 92 Output Total 690 580 85 Balance 64.566 173.263 7 Weight 70.1 kg 70.1 kg Intake: IV 268 126 26 0.9 Normal Saline as 58 36 6 pressure bag @ 3mL/hr Piperacillin-Tazobactam 3 100 .375 gm In Sodium Chloride 0.9% 100 ml @ 25 mls/hr IVPB Q8HR [facility] Rx# :[id number] Sodium Chloride 0.9% 1, 110 90 20 000 ml @ 10 mls/hr IV . Q24H [facility] Rx#:[id number] Intake, IV Titration 276.566 207.263 Amount Heparin Sod,Pork in 0.45% 224.455 163.648 NaCl 25,000 unit In 0.45 % NaCl 1 250ml.bag @ 12 UNITS/KG/HR 7.92 mls/hr IV .Q24H [facility] Rx#: [id number] propofoL 1,000 mg In 52.111 43.615 Empty Bag 1 bag @ Titrate IV .Q0M [facility] Rx#: [id number] Tube Feeding 180 330 36 Other 30 90 30 Output: Urine 690 580 85 Other: Voiding Method Indwelling Catheter Indwelling Catheter Indwelling Catheter ABP, PAP, CO, CI - Last Documented Arterial Blood Pressure 115/51 - Labs CBC & Chem 7: 02/26/20 04:00 02/26/20 04:00 Labs: Abnormal Lab Results - Last 24 Hours (Table) 02/25/20 02/25/20 02/25/20 Range/Units 12:33 17:59 23:54 RBC (4.30-5.90) m/uL Hgb (13.0-17.5) gm/dL Hct (39.0-53.0) % Lymphocytes # (1.0-4.8) k/uL APTT (22.0-30.0) sec ABG pH (7.35-7.45) ABG pO2 (83-108) mmHg ABG HCO3 (21-25) mmol/L ABG Total CO2 (19-24) mmol/L ABG O2 Saturation (94-97) % Chloride (98-107) mmol/L BUN (9-20) mg/dL Glucose (74-99) mg/dL POC Glucose (mg/dL) 112 H 112 H 107 H (75-99) mg/dL Calcium (8.4-10.2) mg/dL ALT (4-49) U/L Total Protein (6.3-8.2) g/dL Albumin (3.5-5.0) g/dL 02/26/20 02/26/20 02/26/20 Range/Units 04:00 04:00 04:00 RBC 3.43 L (4.30-5.90) m/uL Hgb 9.9 L (13.0-17.5) gm/dL Hct 31.0 L (39.0-53.0) % Lymphocytes # 0.9 L (1.0-4.8) k/uL APTT 46.8 H (22.0-30.0) sec ABG pH (7.35-7.45) ABG pO2 (83-108) mmHg ABG HCO3 (21-25) mmol/L ABG Total CO2 (19-24) mmol/L ABG O2 Saturation (94-97) % Chloride 109 H (98-107) mmol/L BUN 21 H (9-20) mg/dL Glucose 120 H (74-99) mg/dL POC Glucose (mg/dL) (75-99) mg/dL Calcium 7.8 L (8.4-10.2) mg/dL ALT 184 H (4-49) U/L Total Protein 4.9 L (6.3-8.2) g/dL Albumin 2.0 L (3.5-5.0) g/dL 02/26/20 02/26/20 Range/Units 05:31 07:29 RBC (4.30-5.90) m/uL Hgb (13.0-17.5) gm/dL Hct (39.0-53.0) % Lymphocytes # (1.0-4.8) k/uL APTT (22.0-30.0) sec ABG pH 7.48 H (7.35-7.45) ABG pO2 110 H (83-108) mmHg ABG HCO3 27 H (21-25) mmol/L ABG Total CO2 28 H (19-24) mmol/L ABG O2 Saturation 98.8 H (94-97) % Chloride (98-107) mmol/L BUN (9-20) mg/dL Glucose (74-99) mg/dL POC Glucose (mg/dL) 120 H (75-99) mg/dL Calcium (8.4-10.2) mg/dL ALT (4-49) U/L Total Protein (6.3-8.2) g/dL Albumin (3.5-5.0) g/dL Microbiology - Last 24 Hours (Table) 02/19/20 16:59 Blood Culture - Final Blood No Growth after 144 hours 02/24/20 14:45 Gram Stain - Preliminary Other - Other Wound Culture - Preliminary Yeast species Gram Neg Bacilli
--- NOTE | 2020-02-26 11:09 | XR ---
EXAMINATION TYPE: XR chest 1V DATE OF EXAM: 02/26/2020 CLINICAL HISTORY: Intubation TECHNIQUE: Portable semiupright view of the chest. COMPARISON: 02/25/2020 chest radiograph FINDINGS: Incompletely visualized right ventriculoperitoneal shunt catheter. Endotracheal tube, left subclavian central venous catheter, and enteric tube not significantly changed given differences in technique. The cardiomediastinal silhouette is within normal limits for size. Bibasilar airspace opac ities and bilateral pleural effusions unchanged. No pneumothorax seen. IMPRESSION: Unchanged bibasilar airspace opacities and bilateral pleural effusions.
[2020-02-26] MEDS: SODIUM CHLORIDE 0.9% 1,000 ML IV SCH (12:21)
[2020-02-26 12:22] LABS: Glucose,Whole Blood 102 mg/dL (75-99)
--- NOTE | 2020-02-26 12:32 | P.PN ---
Subjective Progress Note Date: 02/26/20 Principal diagnosis: Acute hypoxic respiratory failure secondary to aspiration pneumonia. This is a 64-year-old white male patient of Dr. Claude Deluna that was admitted through the emergency department on 02/11/2020 when he came in for evaluation of shortness of breath, hypoxemia. Patient has a known history of esophageal cancer status post chemotherapy and NG tube placement, has a known history of COPD and CHF. Patient was started on empiric antibiotics in the form of Zosyn, nebulized bronchodilators, and diuretics, did require high flow oxygen per Airvo, which was discontinued yesterday, patient is currently on 6 L of oxygen per high flow nasal cannula with a pulse ox of 93-95%, his tube feedings were held yesterday related to some leaking around the bolster, surgical services were consulted and Dr. Styles adjusted the bolster, and tube feedings were resumed today, with TwoCal HN currently at 10 ML per hour. Of note previously patient was receiving tube feedings and consuming some nausea fluids by mouth. He is currently strict nothing by mouth, and receiving all of his nutrition via his J-tube. He is sounding much less congested today, bronchospastic, breathing easier, more comfortably, he sitting up in the chair. His vital signs are stable, his been afebrile, hemodynamically stable, 0.9 normal saline infusing at a rate of 20 ML per hour, yesterday he received a dose of Lasix, and he produces 2.8 L and urine output, he is -1.4 L over last 24 hours, indwelling catheter is in place. On admission patient was in A. fib with RVR, he is currently in sinus mechanism, he is on oral amiodarone and Eliquis for anticoagulation, cardiology services are following. Today's chest x-ray has been reviewed, showing stable diffuse pleural parenchymal disease related to aspiration pneumonia. Today's labs have been reviewed, showing white blood cell, 10.7, hemoglobin of 12.8, sodium is 140, potassium is 3.4, the rest of electrolytes were within normal limits, BUN is 18 creatinine 0.58. All microbiology has shown no growth. He is on Zosyn for antibiotic coverage. On 02/23/2020, the patient is being seen for a follow-up. This morning the patient's upper quadrant 30 mg per KG per minute. I was told by nursing staff the patient was given a sedation holiday yesterday following that the patient aroused and he was able to follow some commands. In general, the patient is doing well. He is hemodynamically stable. He was taken gradually off levo fed and the norepinephrine infusion is currently running at 0.1 g per KG per minute. He is also on normal saline at the rate of 75 mL an hour. Doing well. No specific issues overnight. On a mechanical ventilator, he remains on assist control mode at the rate of 14 with a tidal volume of 450 and FiO2 of 50% with a PEEP of 5. The patient's blood gases from today showed a pH of 7.51 with a pCO2 of 32 and pO2 of 11. Chest x-ray shows increased interstitial markings bilaterally along with a component of pulmonary edema in addition to gastric pull-through and lower lobe consolidations and effusions that are present on previous evaluations. I feel that the patient is going into some degree of fluid overload. The neck fluid balance is been +2.8 L over the past 24 hours. The sputum culture was positive for Klebsiella. The patient is afebrile. No other issues for now. J-tube feeding will be started today. NG tube in place and output has been only 150 mL over the past 12 hours. The patient is covered with Zosyn and vancomycin and the vancomycin will be discontinued. On 02/24/2020, the patient is being seen for a follow-up. Patient is getting another sedation holiday as the patient may be able to wean off the mechanical ventilator. He is on a minimal dose of propofol for now. He is on a assist control mode of ventilation at the rate of 14 with a tidal volume of 450 and FiO2 of 35% with a PEEP of 5. PH is at 7.48 with a pCO2 of 40 and pO2 148. IV fluids at KVO. The patient remains on IV heparin. The patient remains on levo fed at 0.06 units per KG per minute. He is receiving enteral feeding with protein high-calorie at the rate of 50 mL an hour. NG tube is in place and output is minimal at this point in time. The patient was given Lasix yesterday 40 mg IV push and the neck fluid balance has been -2.7 L. Chest x-ray showing some improvement in the volume status. ET tube is in a good location. NG tube in good location. Further diuresis may be of benefit. No abdominal distention. Adequate pulses in all 4 extremities. Arousable. He is in the process of getting a sedation holiday to be checked for his weaning parameters. Patient was reevaluated today on 02/25/20, remains in the ICU, remains intubated and mechanically ventilated. His ventilator settings are assist control rate of 14, volume control plus with tidal volume is 450 FiO2 35% PEEP of 5. ABG this a.m. showed a pO2 of 94 pCO2 of 37 pH of 7.50. Patient was initially admitted on 02/10 and he was intubated on 02/18 when the rapid response team responded to a CODE BLUE. Patient is on propofol at 10 mcg/kg/m, he is also on heparin, and not requiring any pressors. Over the last few days, patient had multiple trials of spontaneous breathing trials and definitely some of them were done over the weekend, however the patient lasted at the most 455 minutes. Remains on tube feeding at 30 MLS per hour. Chest x-ray today showed evidence of bilateral pleural effusions, and I am recommending ultrasound of the chest, will likely consider thoracentesis on this patient if the fluid is large enough to be drained safely. Ultrasound showed small pockets not safe to drain at this time. The left side is only is 0.6 cm pockets and the right side is only 1.8 cm pocket. All labs were reviewed renal profile is normal. Electrolytes are normal. PTT is therapeutic at 47.6. WBC count is 9.2 hemoglobin is 10 Patient was reevaluated today on 02/26/20, remains in the ICU, intubated and mechanically ventilated. Patient is on assist control rate of 14 volume control plus of 450 FiO2 is 35% PEEP is 5 ABG showed a pO2 of 110 pCO2 of 37 pH of 7.48. Patient remains on heparin drip, propofol drip at 10 mcg/kg/m, not requiring any pressors. He is on tube feedings via J-tube. Patient was intubated on 02/18, and daily trials for weaning the patient has failed. Today I will try again with a pressure support of 14 and CPAP. I was markings the patient for almost an hour while I was in the ICU, and he seemed to tolerate that mode of weaning fairly well, patient was moving tidal volumes above 500 mL, and his respiratory rate was in the low 20s. Patient is arousable, follows simple instructions, but seems to be very swollen and generally weak. Chest x-ray shows unchanged bibasilar airspace opacities and bilateral pleural effusion, ultrasound of the chest failed to show significant effusion to consider thoracentesis. Objective - Vital Signs Vital signs: Vital Signs Temp 98.2 F 02/26/20 04:00 Pulse 57 L 02/26/20 12:00 Resp 26 H 02/26/20 12:00 BP 150/116 02/26/20 12:00 Pulse Ox 96 02/26/20 12:00 Intake & Output 02/25/20 02/26/20 02/26/20 18:59 06:59 18:59 Intake Total 754.566 753.263 318.235 Output Total 690 580 480 Balance 64.566 173.263 -161.765 Weight 70.1 kg 70.1 kg Intake: IV 268 126 178 0.9 Normal Saline as 58 36 18 pressure bag @ 3mL/hr Piperacillin-Tazobactam 3 100 100 .375 gm In Sodium Chloride 0.9% 100 ml @ 25 mls/hr IVPB Q8HR [facility] Rx# :[id number] Sodium Chloride 0.9% 1, 110 90 60 000 ml @ 10 mls/hr IV . Q24H [facility] Rx#:[id number] Intake, IV Titration 276.566 207.263 14.235 Amount Heparin Sod,Pork in 0.45% 224.455 163.648 NaCl 25,000 unit In 0.45 % NaCl 1 250ml.bag @ 12 UNITS/KG/HR 7.92 mls/hr IV .Q24H [facility] Rx#: [id number] propofoL 1,000 mg In 52.111 43.615 14.235 Empty Bag 1 bag @ Titrate IV .Q0M [facility] Rx#: [id number] Tube Feeding 180 330 96 Other 30 90 30 Output: Urine 690 580 480 Other: Voiding Method Indwelling Catheter Indwelling Catheter Indwelling Catheter ABP, PAP, CO, CI - Last Documented Arterial Blood Pressure 166/70 - Exam GENERAL EXAM: Revealed a 64-year-old white male, frail looking, chronically ill- looking, on mechanical ventilation, endotracheal tube and orogastric tubes are intact. HEAD: Normocephalic/atraumatic. EENT: PERRLA, EOMI, neck is supple, no neck masses, no JVD, left subclavian central line is noted CHEST: No chest wall deformity. Symmetrical expansion. LUNGS: Minimal fine crackles at the bases, scattered rhonchi noted. CVS: Irregular irregular rhythm, no S3 gallop. No murmur. ABDOMEN: Soft, nontender. No hepatosplenomegaly, normal bowel sounds, no guarding or rigidity. J tube is in place EXTREMITIES: No clubbing edema or cyanosis. MUSCULOSKELETAL: Normal muscle tone. Generalized weakness noted. SKIN: No rashes CENTRAL NERVOUS SYSTEM: Awake, follows simple instructions, generally weak. No gross focal neurologic deficit except for the weakness. - Labs CBC & Chem 7: 02/26/20 04:00 02/26/20 04:00 Labs: Abnormal Lab Results - Last 24 Hours (Table) 02/25/20 02/25/20 02/25/20 Range/Units 12:33 17:59 23:54 RBC (4.30-5.90) m/uL Hgb (13.0-17.5) gm/dL Hct (39.0-53.0) % Lymphocytes # (1.0-4.8) k/uL APTT (22.0-30.0) sec ABG pH (7.35-7.45) ABG pO2 (83-108) mmHg ABG HCO3 (21-25) mmol/L ABG Total CO2 (19-24) mmol/L ABG O2 Saturation (94-97) % Chloride (98-107) mmol/L BUN (9-20) mg/dL Glucose (74-99) mg/dL POC Glucose (mg/dL) 112 H 112 H 107 H (75-99) mg/dL Calcium (8.4-10.2) mg/dL ALT (4-49) U/L Total Protein (6.3-8.2) g/dL Albumin (3.5-5.0) g/dL 02/26/20 02/26/20 02/26/20 Range/Units 04:00 04:00 04:00 RBC 3.43 L (4.30-5.90) m/uL Hgb 9.9 L (13.0-17.5) gm/dL Hct 31.0 L (39.0-53.0) % Lymphocytes # 0.9 L (1.0-4.8) k/uL APTT 46.8 H (22.0-30.0) sec ABG pH (7.35-7.45) ABG pO2 (83-108) mmHg ABG HCO3 (21-25) mmol/L ABG Total CO2 (19-24) mmol/L ABG O2 Saturation (94-97) % Chloride 109 H (98-107) mmol/L BUN 21 H (9-20) mg/dL Glucose 120 H (74-99) mg/dL POC Glucose (mg/dL) (75-99) mg/dL Calcium 7.8 L (8.4-10.2) mg/dL ALT 184 H (4-49) U/L Total Protein 4.9 L (6.3-8.2) g/dL Albumin 2.0 L (3.5-5.0) g/dL 02/26/20 02/26/20 02/26/20 Range/Units 05:31 07:29 12:19 RBC (4.30-5.90) m/uL Hgb (13.0-17.5) gm/dL Hct (39.0-53.0) % Lymphocytes # (1.0-4.8) k/uL APTT (22.0-30.0) sec ABG pH 7.48 H (7.35-7.45) ABG pO2 110 H (83-108) mmHg ABG HCO3 27 H (21-25) mmol/L ABG Total CO2 28 H (19-24) mmol/L ABG O2 Saturation 98.8 H (94-97) % Chloride (98-107) mmol/L BUN (9-20) mg/dL Glucose (74-99) mg/dL POC Glucose (mg/dL) 120 H 102 H (75-99) mg/dL Calcium (8.4-10.2) mg/dL ALT (4-49) U/L Total Protein (6.3-8.2) g/dL Albumin (3.5-5.0) g/dL Microbiology - Last 24 Hours (Table) 02/19/20 16:59 Blood Culture - Final Blood No Growth after 144 hours 02/24/20 14:45 Gram Stain - Preliminary Other - Other Wound Culture - Preliminary Yeast species Gram Neg Bacilli Assessment and Plan Assessment: Impression: Acute hypoxic respiratory failure secondary to aspiration pneumonia. Sputum has been positive for Klebsiella pneumoniae and the patient remains on Zosyn. Suspect some component of acute diastolic congestive heart failure, remains on diuretics. Patient presented initially with hypotension and hypovolemic shock as well as septic shock, given significant amount of fluids, and that may have contributed to this diastolic congestive heart failure along with his atrial fibrillation and RVR. Atrial fibrillation with RVR, improved, patient is on amiodarone. Remains on IV heparin. History of esophageal cancer, patient is status post gastric pull through and being fed through a J-tube. History of seizure disorder. History of brain aneurysm and previous rupture with residual left-sided weakness. And history of seizures related to the aneurysm. Obstructive sleep apnea syndrome not compliant with CPAP. Non-anion gap metabolic acidosis on presentation secondary to sepsis improving/recovered. Medical debility, patient is wheelchair bound. Recommendation: Continue ventilatory support, however I plan to give the patient a longer trial of pressure support of 14 and CPAP, dialed down the pressure support every couple of hours, and if the patient tolerates a pressure support of 8 and CPAP, with good blood gases, may proceed to extubating the patient. Continue nutritional support, continue to use the J-tube for feeding. Continue GI and DVT prophylaxis. Hemodynamic support if necessary. Continue heparin Arrange for PICC line. IV fluids at KVO. Continue diuretics. Ultrasound of the chest was ordered and reviewed, no need for thoracentesis. Continue Zosyn for aspiration pneumonia. Updated his yesterday on his condition, and if he continues to fail weaning trials, may have to proceed to tracheostomy. Overall prognosis is extremely poor. We will continue to follow. Critical care time is 33 minutes. Time with Patient: Greater than 30
[2020-02-26] MEDS ORDERED: IV FLUID CONTINUATION 1,000 ML IV ONE (14:43)
[2020-02-26] MEDS ORDERED: LIDOCAINE 1% INJ 10MG/ML (20 ML MDV) ONE (14:45)
[2020-02-26] MEDS ORDERED: LIDOCAINE 1% INJ 10MG/ML (20 ML MDV) SQ ONE (15:03)
--- NOTE | 2020-02-26 16:11 | P.PN ---
Subjective Acute hypoxic respiratory failure probably secondary to pneumonia 64-year-old the male admitted for pneumonia bilateral, predominantly in the right lower lobes. There is a concern about aspiration patient has been vomiting. Patient does take a modified diet by mouth at home does have a PEG tube in place. Patient the antibiotics were changed to Zosyn which is appropriate. Patient went into respiratory distress on some requirements have gone up because of which patient was transferred to ICU later in the day patient started having A. fib with rapid ventricular rate because of which patient was started on Cardizem and cardiology was consulted. I'm also consulting speech therapy because of his swallowing issues to assess if her appropriate for the patient to be continued on modified diet by mouth. 02/13/2020 Patient clinically looks better patient is being continued on Zosyn continued on IV fluids. Patient will undergo swallow evaluation today speech therapy was consulted. Patient remains nothing by mouth patient is being started on Eliquis for the atrial fibrillation anticoagulation patient is presently on oral amiodarone heart rate is better controlled today. On 02/14/2020 Patient is currently sitting in the chair comfortably. Still having baseline shortness of breath and bibasilar crackles on examination. Currently on high flow oxygen. Chest x-ray showed findings are not significantly changed. Basilar effusions an d associated atelectasis versus pulmonary edema. Patient is being continued on IV antibiotic without Zosyn for possible aspiration and also a dose of Lasix IV was given. Patient has been continued on telemetry monitoring and heart rate is better controlled. Current medications reviewed. 02/15/2020 Patient is currently sitting in the chair comfortably. Saturating around 95% on 6 L oxygen via nasal cannula. Patient was started back on tube feedings today. Patient otherwise denied any complaints of chest pain worsening shortness breath. No nausea vomiting. Denied any abdominal pain. Currently maintaining sinus rhythm. Continued on Eliquis and amiodarone and cardiology is on board. Chest x-ray showed findings are not significantly changed. Basilar effusions and associated atelectasis versus pulmonary edema/pneumonia. Patient is on antibiotics in the form of Zosyn. Laboratory data showed WBC 10.7, hemoglobin 12.8 and platelets of 224 BUN is 18 and creatinine 0.58 Pulmonary and cardiology and general surgery is on board. Current medications reviewed On 02/16/2020 Patient is currently sitting in chair comfortably. Pulse ox about 90s at 3 L via nasal cannula. No fever no chills. Patient is being continued IV antibiotics.tube feedings were started and advance as tolerated. Blood and sputum cultures show no growth. Wound cultures from the abdomen showed Cassie albicans. Continued on dressing changes. No surgical intervention recommended. General surgery has seen the patient. Laboratory data showed WBC 10.0 hemoglobin 12.0 and platelets 253 BUN 16 and creatinine 0.61 patient is being transferred to general medical floor. 02/17/2020 Patient is currently lying in the bed comfortably. Still requiring oxygen at 3 L via nasal cannula. Awake alert oriented but lethargic. No fever no chills. Patient is being continued on antibiotics now for Zosyn. Chest x-ray showed right basilar infiltrates with small bilateral pleural effusions stable from comparison. Patient is tolerating tube feedings at 50 cc/h PEG tube site wound cultures showed Cassie albicans. Patient is being continued on duo nebs and Pulmicort. Heart rate is controlled. Anticoagulation with Eliquis and also on amiodarone and metoprolol 3 times daily. Cardiology and pulmonary is following. Laboratory data showed potassium 3.7, BUN 16 and creatinine 0.6 and hemoglobin 12.3 WBC 9.4 Discussed with his at bedside in detail. 02/18/2020 Patient had a repeat CAT scan which did show the infiltrates that were present before no significant worsening of these infiltrates. Patient cannot take an ything via by mouth but will continue his J-tube feedings. 02/19/2020 Patient was doing well earlier today morning and subsequently went into respiratory failure again presently requiring BiPAP. Repeat chest x-ray did not show any new infiltrate. 02/20/2020 Patient underwent respiratory failure patient is presently intubated patient the is on pressor support as well. Patient coded with asystole for few minutes and was successfully resuscitated after that patient does have pupillary reflexes patient did receive a paralytic agents because of which unable to assess the cough or gag reflex at this time. 02/21/2020 Patient can use to be a mechanical ventilator on propofol drip patient is on assist-control ventilation 50% FiO2 pupils and patient does have bilateral airspace disease bilateral pleural effusions patient remains on Zosyn and vancomycin patient remains on norepinephrine, amiodarone and Cardizem drips. Patient presently has an NG tube and J-tube 02/22/2020 Patient remains on ventilator support patient has significant out from the NG tube barely getting anything to J-tube his prognosis is externally poor will discuss with the family regarding his overall goals of care again. Potassium is extremely low and replaced. Patient remains on pressor support at 5 mcgs per ho ur. 02/23/2020 Patient failed the weaning trial today. Patient continues to be on norepinephrine. Patient went settings are bit better today is some pulmonary edema on the chest x-ray. Patient has about 300 mL from OG tube. Patient is receiving J-tube feedings at a very slow rate 02/24/2020. Patient is a mechanical ventilator failed weaning today patient RSBI was 66. Patient is presently on assist-control ventilation patient's heart rate is presently controlled with frequent PVCs, patient OG tube output is very minimal patient is presently receiving J-tube feedings at that 20-25 mL/h target is 30 mL per hour believe patient is presently not on any pressor support patient is presently on metoprolol 02/25/2020 Patient is on sedation when I valid the patient patient is awake and answering questions with head nodding denied any pain remains on ventilator support appears to have been improving but extremely slowly. Patient is presently on IV heparin and Coumadin is on hold 02/26/2020 Patient remains intubated patient is receiving J-tube feedings without any problem patient is doing well on laceration medication patient remains in intubatedand weaning trials and extubation as per pulmonary patient is on CPAP today. Doing fairly well. Patient has significant effusion in the chest bilateralparacentesis is being considered Review of systems: Unable to obtain due to his clinical condition All inpatient medications were reviewed and appropriate changes in these medications as dictated in the interval history and assessment and plan. Objective - Vital Signs Vital signs: Vital Signs Temp 98.2 F 02/26/20 04:00 Pulse 70 02/26/20 15:45 Resp 18 02/26/20 15:00 BP 138/94 02/26/20 15:00 Pulse Ox 96 02/26/20 15:00 Intake & Output 02/25/20 02/26/20 02/26/20 18:59 06:59 18:59 Intake Total 754.566 753.263 430.235 Output Total 690 580 725 Balance 64.566 173.263 -294.765 Weight 70.1 kg 70.1 kg Intake: IV 268 126 230 0.9 Normal Saline as 58 36 30 pressure bag @ 3mL/hr Piperacillin-Tazobactam 3 100 100 .375 gm In Sodium Chloride 0.9% 100 ml @ 25 mls/hr IVPB Q8HR [facility] Rx# :[id number] Sodium Chloride 0.9% 1, 110 90 100 000 ml @ 10 mls/hr IV . Q24H [facility] Rx#:[id number] Intake, IV Titration 276.566 207.263 14.235 Amount Heparin Sod,Pork in 0.45% 224.455 163.648 NaCl 25,000 unit In 0.45 % NaCl 1 250ml.bag @ 12 UNITS/KG/HR 7.92 mls/hr IV .Q24H [facility] Rx#: [id number] propofoL 1,000 mg In 52.111 43.615 14.235 Empty Bag 1 bag @ Titrate IV .Q0M [facility] Rx#: [id number] Tube Feeding 180 330 156 Other 30 90 30 Output: Urine 690 580 725 Other: Voiding Method Indwelling Catheter Indwelling Catheter Indwelling Catheter ABP, PAP, CO, CI - Last Documented Arterial Blood Pressure 126/61 - Exam PHYSICAL EXAMINATION: GENERAL: Patient is intubated, off sedation and is awake HEENT: Pupils are round and equally reacting to light. EOMI. No scleral icterus. No conjunctival pallor. Normocephalic, atraumatic. No pharyngeal erythema. No thyromegaly. CARDIOVASCULAR: S1 and S2 present. No murmurs, rubs, or gallops. PULMONARY: Diffuse bilateral rhonchi and crackles bibasilar ABDOMEN: Soft, nontender, nondistended, normoactive bowel sounds. No palpable organomegaly. MUSCULOSKELETAL: No joint swelling or deformity. EXTREMITIES: No cyanosis, clubbing, or pedal edema. NEUROLOGICAL: Patient is awake and nodding head off sedation presently SKIN: No rashes. - Labs CBC & Chem 7: 02/26/20 04:00 02/26/20 04:00 Labs: Abnormal Lab Results - Last 24 Hours (Table) 02/25/20 02/25/20 02/26/20 Range/Units 17:59 23:54 04:00 RBC (4.30-5.90) m/uL Hgb (13.0-17.5) gm/dL Hct (39.0-53.0) % Lymphocytes # (1.0-4.8) k/uL APTT 46.8 H (22.0-30.0) sec ABG pH (7.35-7.45) ABG pO2 (83-108) mmHg ABG HCO3 (21-25) mmol/L ABG Total CO2 (19-24) mmol/L ABG O2 Saturation (94-97) % Chloride (98-107) mmol/L BUN (9-20) mg/dL Glucose (74-99) mg/dL POC Glucose (mg/dL) 112 H 107 H (75-99) mg/dL Calcium (8.4-10.2) mg/dL ALT (4-49) U/L Total Protein (6.3-8.2) g/dL Albumin (3.5-5.0) g/dL 02/26/20 02/26/20 02/26/20 Range/Units 04:00 04:00 05:31 RBC 3.43 L (4.30-5.90) m/uL Hgb 9.9 L (13.0-17.5) gm/dL Hct 31.0 L (39.0-53.0) % Lymphocytes # 0.9 L (1.0-4.8) k/uL APTT (22.0-30.0) sec ABG pH (7.35-7.45) ABG pO2 (83-108) mmHg ABG HCO3 (21-25) mmol/L ABG Total CO2 (19-24) mmol/L ABG O2 Saturation (94-97) % Chloride 109 H (98-107) mmol/L BUN 21 H (9-20) mg/dL Glucose 120 H (74-99) mg/dL POC Glucose (mg/dL) 120 H (75-99) mg/dL Calcium 7.8 L (8.4-10.2) mg/dL ALT 184 H (4-49) U/L Total Protein 4.9 L (6.3-8.2) g/dL Albumin 2.0 L (3.5-5.0) g/dL 02/26/20 02/26/20 Range/Units 07:29 12:19 RBC (4.30-5.90) m/uL Hgb (13.0-17.5) gm/dL Hct (39.0-53.0) % Lymphocytes # (1.0-4.8) k/uL APTT (22.0-30.0) sec ABG pH 7.48 H (7.35-7.45) ABG pO2 110 H (83-108) mmHg ABG HCO3 27 H (21-25) mmol/L ABG Total CO2 28 H (19-24) mmol/L ABG O2 Saturation 98.8 H (94-97) % Chloride (98-107) mmol/L BUN (9-20) mg/dL Glucose (74-99) mg/dL POC Glucose (mg/dL) 102 H (75-99) mg/dL Calcium (8.4-10.2) mg/dL ALT (4-49) U/L Total Protein (6.3-8.2) g/dL Albumin (3.5-5.0) g/dL Microbiology - Last 24 Hours (Table) 02/19/20 16:59 Blood Culture - Final Blood No Growth after 144 hours 02/24/20 14:45 Gram Stain - Preliminary Other - Other Wound Culture - Preliminary Yeast species Gram Neg Bacilli Assessment and Plan Plan: -Acute hypoxic respiratory failure secondary to pneumonia predominantly in the right. patient does have pleural effusions on both sides. Patient is on Zosyn at this time there is a concern for aspiration. Patient is presently intubated on assist-control ventilation please referred to pulmonology documentation for went settings. patient is tolerating BiPAP very well Patient probably will undergo thoracentesis with bilateral pleural effusions -Septic shock: Shock resolved patient is off norepinephrine -Paraxysmal Atrial fibrillation with rapid ventricular rate Patient is being switched to Eliquis. Patient is presently on amiodarone, off Cardizem. -gastroesophageal reflux disease, patient said J-tube feedings were reinitiated and patient has nosignificant output from the NG tube -Hypertension -benign prostatic hypertrophy -History of renal cancer and esophageal cancer with dysphagia and a J-tube . -History of cerebral aneurysm. -KAROL His overall prognosis is extremely poor
[2020-02-26 19:03] LABS: Glucose,Whole Blood 107 mg/dL (75-99)
[2020-02-26 23:44] LABS: Glucose,Whole Blood 97 mg/dL (75-99)
[2020-02-27] MEDS: HEPARIN SOD,PORK IN 0.45% NACL 25,000 UNIT in 0.45% NACL 1 250ML.BAG IV SCH ×2 (00:20→20:12)
[2020-02-27 04:26] LABS: Basophils % (A) 1 %; Eosinophils # (A) 0.4 k/uL (0-0.7); Eosinophils % (A) 7 %; HCT 33.1 % (39.0-53.0); HGB 10.5 gm/dL (13.0-17.5); Hypochromasia Slight; Lymphocytes # (A) 0.9 k/uL (1.0-4.8); Lymphocytes % (A) 15 %; MCH 28.7 pg (25.0-35.0); MCHC 31.8 g/dL (31.0-37.0); MCV 90.2 fL (80.0-100.0); Mean Platelet Volume 8.9; Monocytes # (A) 0.4 k/uL (0-1.0); Monocytes % (A) 6 %; Neutrophils % (A) 69 %; Platelet Count 229 k/uL (150-450); RBC 3.67 m/uL (4.30-5.90); RDW 14.7 % (11.5-15.5); WBC 5.7 k/uL (3.8-10.6)
[2020-02-27 04:56] LABS: ALT 132 U/L (4-49); AST 29 U/L (17-59); African American GFR (CKD) >90 (>60 ml/min/1.73 sqM); Albumin 2.1 g/dL (3.5-5.0); Alkaline Phosphatase 88 U/L (38-126); Anion Gap 2 mmol/L; Blood Urea Nitrogen 18 mg/dL (9-20); Calcium 7.7 mg/dL (8.4-10.2); Carbon Dioxide 26 mmol/L (22-30); Chloride 109 mmol/L (98-107); Glucose 116 mg/dL (74-99); Non-African American GFR(CKD) >90 (>60 ml/min/1.73 sqM); Potassium 3.9 mmol/L (3.5-5.1); Sodium 137 mmol/L (137-145); Total Bilirubin 0.5 mg/dL (0.2-1.3); Total Protein 5.2 g/dL (6.3-8.2)
[2020-02-27] MEDS ORDERED: POTASSIUM BICARBONATE/CIT AC 20 MEQ TABLET.EFF NG-TUBE SCH ×2 (06:00→20:00)
[2020-02-27 06:11] LABS: Glucose,Whole Blood 110 mg/dL (75-99)
[2020-02-27] MEDS: INSULIN ASPART (NovoLOG) 100 UNIT/ML VIAL SQ SCH ×4 (06:13→23:46)
[2020-02-27] MEDS: METOCLOPRAMIDE 5 MG/ML 2 ML VIAL IVP SCH ×4 (06:15→23:34)
[2020-02-27 07:24] LABS: ABG HCO3 27 mmol/L (21-25); ABG Oxygen Saturation 98.8 % (94-97); ABG PCO2 36 mmHg (35-45); ABG PH 7.48 (7.35-7.45); ABG PO2 111 mmHg (83-108); ABG TCO2 28 mmol/L (19-24)
[2020-02-27 07:26] LABS: Allen Test Performed? NO
[2020-02-27] MEDS: PANTOPRAZOLE 40 MG/10 ML VIAL IVP SCH (07:51)
[2020-02-27] MEDS: METOPROLOL TARTRATE 25 MG TAB PO SCH ×2 (07:51→20:12)
[2020-02-27] MEDS: AMIODARONE 200 MG TAB PO SCH ×2 (07:51→20:11)
[2020-02-27] MEDS: CHLORHEXIDINE GLUCONATE 15 ML CUP MUCOUS MEM SCH ×2 (07:51→20:11)
[2020-02-27] MEDS: PIPERACILLIN-TAZOBACTAM 3.375 GM in SODIUM CHLORIDE 0.9% 100 ML IVPB SCH ×3 (07:51→23:34)
[2020-02-27] MEDS: NOREPINEPHRINE 32 MG in SODIUM CHLORIDE 0.9% 218 ML IV SCH (07:52)
[2020-02-27] MEDS: NYSTATIN 100,000 UNIT/GM POWD 15 GM TOPICAL SCH ×2 (07:52→20:12)
[2020-02-27] MEDS: IPRATROPIUM-ALBUTEROL 3 ML NEB INHALATION SCH ×4 (08:00→19:54)
--- NOTE | 2020-02-27 08:59 | P.PN ---
Subjective Acute hypoxic respiratory failure probably secondary to pneumonia 64-year-old the male admitted for pneumonia bilateral, predominantly in the right lower lobes. There is a concern about aspiration patient has been vomiting. Patient does take a modified diet by mouth at home does have a PEG tube in place. Patient the antibiotics were changed to Zosyn which is appropriate. Patient went into respiratory distress on some requirements have gone up because of which patient was transferred to ICU later in the day patient started having A. fib with rapid ventricular rate because of which patient was started on Cardizem and cardiology was consulted. I'm also consulting speech therapy because of his swallowing issues to assess if her appropriate for the patient to be continued on modified diet by mouth. 02/13/2020 Patient clinically looks better patient is being continued on Zosyn continued on IV fluids. Patient will undergo swallow evaluation today speech therapy was consulted. Patient remains nothing by mouth patient is being started on Eliquis for the atrial fibrillation anticoagulation patient is presently on oral amiodarone heart rate is better controlled today. On 02/14/2020 Patient is currently sitting in the chair comfortably. Still having baseline shortness of breath and bibasilar crackles on examination. Currently on high flow oxygen. Chest x-ray showed findings are not significantly changed. Basilar effusions an d associated atelectasis versus pulmonary edema. Patient is being continued on IV antibiotic without Zosyn for possible aspiration and also a dose of Lasix IV was given. Patient has been continued on telemetry monitoring and heart rate is better controlled. Current medications reviewed. 02/15/2020 Patient is currently sitting in the chair comfortably. Saturating around 95% on 6 L oxygen via nasal cannula. Patient was started back on tube feedings today. Patient otherwise denied any complaints of chest pain worsening shortness breath. No nausea vomiting. Denied any abdominal pain. Currently maintaining sinus rhythm. Continued on Eliquis and amiodarone and cardiology is on board. Chest x-ray showed findings are not significantly changed. Basilar effusions and associated atelectasis versus pulmonary edema/pneumonia. Patient is on antibiotics in the form of Zosyn. Laboratory data showed WBC 10.7, hemoglobin 12.8 and platelets of 224 BUN is 18 and creatinine 0.58 Pulmonary and cardiology and general surgery is on board. Current medications reviewed On 02/16/2020 Patient is currently sitting in chair comfortably. Pulse ox about 90s at 3 L via nasal cannula. No fever no chills. Patient is being continued IV antibiotics.tube feedings were started and advance as tolerated. Blood and sputum cultures show no growth. Wound cultures from the abdomen showed Cassie albicans. Continued on dressing changes. No surgical intervention recommended. General surgery has seen the patient. Laboratory data showed WBC 10.0 hemoglobin 12.0 and platelets 253 BUN 16 and creatinine 0.61 patient is being transferred to general medical floor. 02/17/2020 Patient is currently lying in the bed comfortably. Still requiring oxygen at 3 L via nasal cannula. Awake alert oriented but lethargic. No fever no chills. Patient is being continued on antibiotics now for Zosyn. Chest x-ray showed right basilar infiltrates with small bilateral pleural effusions stable from comparison. Patient is tolerating tube feedings at 50 cc/h PEG tube site wound cultures showed Cassie albicans. Patient is being continued on duo nebs and Pulmicort. Heart rate is controlled. Anticoagulation with Eliquis and also on amiodarone and metoprolol 3 times daily. Cardiology and pulmonary is following. Laboratory data showed potassium 3.7, BUN 16 and creatinine 0.6 and hemoglobin 12.3 WBC 9.4 Discussed with his at bedside in detail. 02/18/2020 Patient had a repeat CAT scan which did show the infiltrates that were present before no significant worsening of these infiltrates. Patient cannot take an ything via by mouth but will continue his J-tube feedings. 02/19/2020 Patient was doing well earlier today morning and subsequently went into respiratory failure again presently requiring BiPAP. Repeat chest x-ray did not show any new infiltrate. 02/20/2020 Patient underwent respiratory failure patient is presently intubated patient the is on pressor support as well. Patient coded with asystole for few minutes and was successfully resuscitated after that patient does have pupillary reflexes patient did receive a paralytic agents because of which unable to assess the cough or gag reflex at this time. 02/21/2020 Patient can use to be a mechanical ventilator on propofol drip patient is on assist-control ventilation 50% FiO2 pupils and patient does have bilateral airspace disease bilateral pleural effusions patient remains on Zosyn and vancomycin patient remains on norepinephrine, amiodarone and Cardizem drips. Patient presently has an NG tube and J-tube 02/22/2020 Patient remains on ventilator support patient has significant out from the NG tube barely getting anything to J-tube his prognosis is externally poor will discuss with the family regarding his overall goals of care again. Potassium is extremely low and replaced. Patient remains on pressor support at 5 mcgs per ho ur. 02/23/2020 Patient failed the weaning trial today. Patient continues to be on norepinephrine. Patient went settings are bit better today is some pulmonary edema on the chest x-ray. Patient has about 300 mL from OG tube. Patient is receiving J-tube feedings at a very slow rate 02/24/2020. Patient is a mechanical ventilator failed weaning today patient RSBI was 66. Patient is presently on assist-control ventilation patient's heart rate is presently controlled with frequent PVCs, patient OG tube output is very minimal patient is presently receiving J-tube feedings at that 20-25 mL/h target is 30 mL per hour believe patient is presently not on any pressor support patient is presently on metoprolol 02/25/2020 Patient is on sedation when I valid the patient patient is awake and answering questions with head nodding denied any pain remains on ventilator support appears to have been improving but extremely slowly. Patient is presently on IV heparin and Coumadin is on hold 02/26/2020 Patient remains intubated patient is receiving J-tube feedings without any problem patient is doing well on laceration medication patient remains in intubatedand weaning trials and extubation as per pulmonary patient is on CPAP today. Doing fairly well. Patient has significant effusion in the chest bilateralparacentesis is being considered 02/27/2020 Patient is on sedation vacation today awake denied any pain. Patient will undergo weaning trial again today patient will be started on CPAP now patient tolerated CPAP for a few hours very well yesterday patient is able to tolerate tube feedings at 40 mL/hand output from theOG tube Review of systems: Unable to obtain due to his clinical condition All inpatient medications were reviewed and appropriate changes in these medications as dictated in the interval history and assessment and plan. Objective - Vital Signs Vital signs: Vital Signs Temp 98 F 02/27/20 08:00 Pulse 73 02/27/20 08:10 Resp 20 02/27/20 08:00 BP 120/69 02/27/20 08:00 Pulse Ox 96 02/27/20 08:00 Intake & Output 02/26/20 02/27/20 02/27/20 18:59 06:59 18:59 Intake Total 430.235 836.254 156 Output Total 725 645 100 Balance -294.765 191.254 56 Weight 70.1 kg 68 kg Intake: IV 230 133 16 0.9 Normal Saline as 30 33 6 pressure bag @ 3mL/hr Piperacillin-Tazobactam 3 100 .375 gm In Sodium Chloride 0.9% 100 ml @ 25 mls/hr IVPB Q8HR [facility] Rx# :[id number] Sodium Chloride 0.9% 1, 100 100 10 000 ml @ 10 mls/hr IV . Q24H [facility] Rx#:[id number] Intake, IV Titration 14.235 283.254 Amount Heparin Sod,Pork in 0.45% 231.801 NaCl 25,000 unit In 0.45 % NaCl 1 250ml.bag @ 12 UNITS/KG/HR 7.92 mls/hr IV .Q24H [facility] Rx#: [id number] propofoL 1,000 mg In 14.235 51.453 Empty Bag 1 bag @ Titrate IV .Q0M [facility] Rx#: [id number] Tube Feeding 156 330 110 Other 30 90 30 Output: Urine 725 645 100 Other: Voiding Method Indwelling Catheter Indwelling Catheter Indwelling Catheter ABP, PAP, CO, CI - Last Documented Arterial Blood Pressure 143/63 - Exam PHYSICAL EXAMINATION: GENERAL: Patient is intubated, off sedation and is awake HEENT: Pupils are round and equally reacting to light. EOMI. No scleral icterus. No conjunctival pallor. Normocephalic, atraumatic. No pharyngeal erythema. No thyromegaly. CARDIOVASCULAR: S1 and S2 present. No murmurs, rubs, or gallops. PULMONARY: Diffuse bilateral rhonchi and crackles bibasilar ABDOMEN: Soft, nontender, nondistended, normoactive bowel sounds. No palpable organomegaly. MUSCULOSKELETAL: No joint swelling or deformity. EXTREMITIES: No cyanosis, clubbing, or pedal edema. NEUROLOGICAL: Patient is awake and nodding head off sedation presently SKIN: No rashes. - Labs CBC & Chem 7: 02/27/20 04:10 02/27/20 04:10 Labs: Abnormal Lab Results - Last 24 Hours (Table) 02/26/20 02/26/20 02/27/20 Range/Units 12:19 19:01 04:10 RBC (4.30-5.90) m/uL Hgb (13.0-17.5) gm/dL Hct (39.0-53.0) % Lymphocytes # (1.0-4.8) k/uL APTT 47.6 H (22.0-30.0) sec ABG pH (7.35-7.45) ABG pO2 (83-108) mmHg ABG HCO3 (21-25) mmol/L ABG Total CO2 (19-24) mmol/L ABG O2 Saturation (94-97) % Chloride (98-107) mmol/L Glucose (74-99) mg/dL POC Glucose (mg/dL) 102 H 107 H (75-99) mg/dL Calcium (8.4-10.2) mg/dL ALT (4-49) U/L Total Protein (6.3-8.2) g/dL Albumin (3.5-5.0) g/dL 02/27/20 02/27/20 02/27/20 Range/Units 04:10 04:10 06:10 RBC 3.67 L (4.30-5.90) m/uL Hgb 10.5 L (13.0-17.5) gm/dL Hct 33.1 L (39.0-53.0) % Lymphocytes # 0.9 L (1.0-4.8) k/uL APTT (22.0-30.0) sec ABG pH (7.35-7.45) ABG pO2 (83-108) mmHg ABG HCO3 (21-25) mmol/L ABG Total CO2 (19-24) mmol/L ABG O2 Saturation (94-97) % Chloride 109 H (98-107) mmol/L Glucose 116 H (74-99) mg/dL POC Glucose (mg/dL) 110 H (75-99) mg/dL Calcium 7.7 L (8.4-10.2) mg/dL ALT 132 H (4-49) U/L Total Protein 5.2 L (6.3-8.2) g/dL Albumin 2.1 L (3.5-5.0) g/dL 02/27/20 Range/Units 07:21 RBC (4.30-5.90) m/uL Hgb (13.0-17.5) gm/dL Hct (39.0-53.0) % Lymphocytes # (1.0-4.8) k/uL APTT (22.0-30.0) sec ABG pH 7.48 H (7.35-7.45) ABG pO2 111 H (83-108) mmHg ABG HCO3 27 H (21-25) mmol/L ABG Total CO2 28 H (19-24) mmol/L ABG O2 Saturation 98.8 H (94-97) % Chloride (98-107) mmol/L Glucose (74-99) mg/dL POC Glucose (mg/dL) (75-99) mg/dL Calcium (8.4-10.2) mg/dL ALT (4-49) U/L Total Protein (6.3-8.2) g/dL Albumin (3.5-5.0) g/dL Microbiology - Last 24 Hours (Table) 02/24/20 14:45 Gram Stain - Final Other - Other Wound Culture - Final Cassie albicans Klebsiella pneumoniae Assessment and Plan Plan: -Acute hypoxic respiratory failure secondary to pneumonia predominantly in the right. patient does have pleural effusions on both sides. Patient is on Zosyn at this time there is a concern for aspiration. Patient is presently intubated on assist-control ventilation please referred to pulmonology documentation for vent settings. patient is tolerating BiPAP very well Patient probably will undergo thoracentesis with bilateral pleural effusions -Septic shock: Shock resolved patient is off norepinephrine -Paraxysmal Atrial fibrillation with rapid ventricular rate Patient is being switched to Eliquis. Patient is presently on amiodarone, off Cardizem. -gastroesophageal reflux disease, patient said J-tube feedings were reinitiated receiving tube feedings at 40 mL per hour goal is around 60 and patient has nosignificant output from the OG tube -Hypertension -benign prostatic hypertrophy -History of renal cancer and esophageal cancer with dysphagia and a J-tube . -History of cerebral aneurysm. -KAROL His overall prognosis is extremely poor
--- NOTE | 2020-02-27 09:30 | XR ---
EXAMINATION TYPE: XR chest 1V DATE OF EXAM: 02/27/2020 COMPARISON: 02/26/2020 HISTORY: Intubation TECHNIQUE: Single frontal view of the chest is obtained. FINDINGS: ET tube is approximately 1.5 cm above javan. NG tube is only seen to the level of the mid esophagus. Central line is stable. Bilateral consolidation and pleural effusion. No sizable pneumotho rax. AP shunt catheter noted. IMPRESSION: 1. Diffuse pleural-parenchymal disease is stable. 2. NG tube is at the level of the midesophagus and should be repositioned.
[2020-02-27] MEDS ORDERED: FUROSEMIDE 10 MG/ML 4 ML VIAL IV STA (11:04)
[2020-02-27 11:39] LABS: Glucose,Whole Blood 103 mg/dL (75-99)
--- NOTE | 2020-02-27 12:32 | P.PN ---
Subjective This is a pleasant 64-year-old male past medical history significant for paroxysmal atrial fibrillation on long-term anticoagulation, esophageal cancer with J-tube in place, hypertension and brain aneurysm in the past. He follows in the office with Dr. Claros. He currently on mechanical ventilation. He is currently maintaining sinus rhythm with heart rate in the 60's. He is having intermittent episodes of short runs of non-sustained ventricular tachycardia. He is awake and communicating, moving all extremities. He denies chest pain, dizziness or palpitations. There is still conversations with pulmonary care team regarding weaning trials again today. Possible trach placement if he cannot tolerate extubation. Blood pressure 120/69 heart rate 69. Laboratory data reviewed, WBC 5.7, hemoglobin 10.5, platelets 229, pH 7.48, pCO2 36, pO2 111 and bicarb 27, sodium 137, potassium 3.9, creatinine 0.66. GENERAL: Comfortable in bed on mechanical ventilation. NECK: Supple without JVD or thyromegaly. LUNGS: Respiration equal and unlabored. Diminished bilaterally. HEART: Regular rate and rhythm without murmurs, rubs or gallops. S1 and S2 heard. EXTREMITIES: Normal range of motion, no edema noted. No clubbing or cyanosis. Peripheral pulses intact. ASSESSMENT Paroxysmal atrial fibrillation on Eliquis for anticoagulation currently maintaining sinus mechanism Acute hypoxic respiratory failure requiring mechanical ventilation Asystole arrest Aspiration pneumonia Lactic acidosis Leukocytosis Acute systolic heart failure s/p cardiac arrest History of esophageal cancer status post J-tube placement Hypertension History of brain aneurysm with [employer] shunt Non-sustained ventricular tachycardia. PLAN We recommend resuming coumadin when ok with the pulmonary care team pending possible PICC line and trach placement. Heart rate controlled on current medical regimen. Nurse Practitioner note has been reviewed, I agree with a documented findings and plan of care. Patient was seen and examined. Objective - Vital Signs Vital signs: Vital Signs Temp 98 F 02/27/20 08:00 Pulse 73 02/27/20 08:10 Resp 20 02/27/20 08:00 BP 120/69 02/27/20 08:00 Pulse Ox 96 02/27/20 08:00 Intake & Output 02/26/20 02/27/20 02/27/20 18:59 06:59 18:59 Intake Total 430.235 836.254 156 Output Total 725 645 100 Balance -294.765 191.254 56 Weight 70.1 kg 68 kg Intake: IV 230 133 16 0.9 Normal Saline as 30 33 6 pressure bag @ 3mL/hr Piperacillin-Tazobactam 3 100 .375 gm In Sodium Chloride 0.9% 100 ml @ 25 mls/hr IVPB Q8HR [facility] Rx# :[id number] Sodium Chloride 0.9% 1, 100 100 10 000 ml @ 10 mls/hr IV . Q24H [facility] Rx#:[id number] Intake, IV Titration 14.235 283.254 Amount Heparin Sod,Pork in 0.45% 231.801 NaCl 25,000 unit In 0.45 % NaCl 1 250ml.bag @ 12 UNITS/KG/HR 7.92 mls/hr IV .Q24H [facility] Rx#: [id number] propofoL 1,000 mg In 14.235 51.453 Empty Bag 1 bag @ Titrate IV .Q0M [facility] Rx#: [id number] Tube Feeding 156 330 110 Other 30 90 30 Output: Urine 725 645 100 Other: Voiding Method Indwelling Catheter Indwelling Catheter Indwelling Catheter ABP, PAP, CO, CI - Last Documented Arterial Blood Pressure 143/63 - Labs CBC & Chem 7: 02/27/20 04:10 02/27/20 04:10 Labs: Abnormal Lab Results - Last 24 Hours (Table) 02/26/20 02/26/20 02/27/20 Range/Units 12:19 19:01 04:10 RBC (4.30-5.90) m/uL Hgb (13.0-17.5) gm/dL Hct (39.0-53.0) % Lymphocytes # (1.0-4.8) k/uL APTT 47.6 H (22.0-30.0) sec ABG pH (7.35-7.45) ABG pO2 (83-108) mmHg ABG HCO3 (21-25) mmol/L ABG Total CO2 (19-24) mmol/L ABG O2 Saturation (94-97) % Chloride (98-107) mmol/L Glucose (74-99) mg/dL POC Glucose (mg/dL) 102 H 107 H (75-99) mg/dL Calcium (8.4-10.2) mg/dL ALT (4-49) U/L Total Protein (6.3-8.2) g/dL Albumin (3.5-5.0) g/dL 02/27/20 02/27/20 02/27/20 Range/Units 04:10 04:10 06:10 RBC 3.67 L (4.30-5.90) m/uL Hgb 10.5 L (13.0-17.5) gm/dL Hct 33.1 L (39.0-53.0) % Lymphocytes # 0.9 L (1.0-4.8) k/uL APTT (22.0-30.0) sec ABG pH (7.35-7.45) ABG pO2 (83-108) mmHg ABG HCO3 (21-25) mmol/L ABG Total CO2 (19-24) mmol/L ABG O2 Saturation (94-97) % Chloride 109 H (98-107) mmol/L Glucose 116 H (74-99) mg/dL POC Glucose (mg/dL) 110 H (75-99) mg/dL Calcium 7.7 L (8.4-10.2) mg/dL ALT 132 H (4-49) U/L Total Protein 5.2 L (6.3-8.2) g/dL Albumin 2.1 L (3.5-5.0) g/dL 02/27/20 Range/Units 07:21 RBC (4.30-5.90) m/uL Hgb (13.0-17.5) gm/dL Hct (39.0-53.0) % Lymphocytes # (1.0-4.8) k/uL APTT (22.0-30.0) sec ABG pH 7.48 H (7.35-7.45) ABG pO2 111 H (83-108) mmHg ABG HCO3 27 H (21-25) mmol/L ABG Total CO2 28 H (19-24) mmol/L ABG O2 Saturation 98.8 H (94-97) % Chloride (98-107) mmol/L Glucose (74-99) mg/dL POC Glucose (mg/dL) (75-99) mg/dL Calcium (8.4-10.2) mg/dL ALT (4-49) U/L Total Protein (6.3-8.2) g/dL Albumin (3.5-5.0) g/dL Microbiology - Last 24 Hours (Table) 02/24/20 14:45 Gram Stain - Final Other - Other Wound Culture - Final Cassie albicans Klebsiella pneumoniae
[2020-02-27] MEDS: SODIUM CHLORIDE 0.9% 1,000 ML IV SCH (12:34)
--- NOTE | 2020-02-27 12:59 | P.PN ---
Subjective Progress Note Date: 02/27/20 Principal diagnosis: Acute hypoxic respiratory failure secondary to aspiration pneumonia. This is a 64-year-old white male patient of Dr. Claude Deluna that was admitted through the emergency department on 02/11/2020 when he came in for evaluation of shortness of breath, hypoxemia. Patient has a known history of esophageal cancer status post chemotherapy and NG tube placement, has a known history of COPD and CHF. Patient was started on empiric antibiotics in the form of Zosyn, nebulized bronchodilators, and diuretics, did require high flow oxygen per Airvo, which was discontinued yesterday, patient is currently on 6 L of oxygen per high flow nasal cannula with a pulse ox of 93-95%, his tube feedings were held yesterday related to some leaking around the bolster, surgical services were consulted and Dr. Styles adjusted the bolster, and tube feedings were resumed today, with TwoCal HN currently at 10 ML per hour. Of note previously patient was receiving tube feedings and consuming some nausea fluids by mouth. He is currently strict nothing by mouth, and receiving all of his nutrition via his J-tube. He is sounding much less congested today, bronchospastic, breathing easier, more comfortably, he sitting up in the chair. His vital signs are stable, his been afebrile, hemodynamically stable, 0.9 normal saline infusing at a rate of 20 ML per hour, yesterday he received a dose of Lasix, and he produces 2.8 L and urine output, he is -1.4 L over last 24 hours, indwelling catheter is in place. On admission patient was in A. fib with RVR, he is currently in sinus mechanism, he is on oral amiodarone and Eliquis for anticoagulation, cardiology services are following. Today's chest x-ray has been reviewed, showing stable diffuse pleural parenchymal disease related to aspiration pneumonia. Today's labs have been reviewed, showing white blood cell, 10.7, hemoglobin of 12.8, sodium is 140, potassium is 3.4, the rest of electrolytes were within normal limits, BUN is 18 creatinine 0.58. All microbiology has shown no growth. He is on Zosyn for antibiotic coverage. On 02/23/2020, the patient is being seen for a follow-up. This morning the patient's upper quadrant 30 mg per KG per minute. I was told by nursing staff the patient was given a sedation holiday yesterday following that the patient aroused and he was able to follow some commands. In general, the patient is doing well. He is hemodynamically stable. He was taken gradually off levo fed and the norepinephrine infusion is currently running at 0.1 g per KG per minute. He is also on normal saline at the rate of 75 mL an hour. Doing well. No specific issues overnight. On a mechanical ventilator, he remains on assist control mode at the rate of 14 with a tidal volume of 450 and FiO2 of 50% with a PEEP of 5. The patient's blood gases from today showed a pH of 7.51 with a pCO2 of 32 and pO2 of 11. Chest x-ray shows increased interstitial markings bilaterally along with a component of pulmonary edema in addition to gastric pull-through and lower lobe consolidations and effusions that are present on previous evaluations. I feel that the patient is going into some degree of fluid overload. The neck fluid balance is been +2.8 L over the past 24 hours. The sputum culture was positive for Klebsiella. The patient is afebrile. No other issues for now. J-tube feeding will be started today. NG tube in place and output has been only 150 mL over the past 12 hours. The patient is covered with Zosyn and vancomycin and the vancomycin will be discontinued. On 02/24/2020, the patient is being seen for a follow-up. Patient is getting another sedation holiday as the patient may be able to wean off the mechanical ventilator. He is on a minimal dose of propofol for now. He is on a assist control mode of ventilation at the rate of 14 with a tidal volume of 450 and FiO2 of 35% with a PEEP of 5. PH is at 7.48 with a pCO2 of 40 and pO2 148. IV fluids at KVO. The patient remains on IV heparin. The patient remains on levo fed at 0.06 units per KG per minute. He is receiving enteral feeding with protein high-calorie at the rate of 50 mL an hour. NG tube is in place and output is minimal at this point in time. The patient was given Lasix yesterday 40 mg IV push and the neck fluid balance has been -2.7 L. Chest x-ray showing some improvement in the volume status. ET tube is in a good location. NG tube in good location. Further diuresis may be of benefit. No abdominal distention. Adequate pulses in all 4 extremities. Arousable. He is in the process of getting a sedation holiday to be checked for his weaning parameters. Patient was reevaluated today on 02/25/20, remains in the ICU, remains intubated and mechanically ventilated. His ventilator settings are assist control rate of 14, volume control plus with tidal volume is 450 FiO2 35% PEEP of 5. ABG this a.m. showed a pO2 of 94 pCO2 of 37 pH of 7.50. Patient was initially admitted on 02/10 and he was intubated on 02/18 when the rapid response team responded to a CODE BLUE. Patient is on propofol at 10 mcg/kg/m, he is also on heparin, and not requiring any pressors. Over the last few days, patient had multiple trials of spontaneous breathing trials and definitely some of them were done over the weekend, however the patient lasted at the most 455 minutes. Remains on tube feeding at 30 MLS per hour. Chest x-ray today showed evidence of bilateral pleural effusions, and I am recommending ultrasound of the chest, will likely consider thoracentesis on this patient if the fluid is large enough to be drained safely. Ultrasound showed small pockets not safe to drain at this time. The left side is only is 0.6 cm pockets and the right side is only 1.8 cm pocket. All labs were reviewed renal profile is normal. Electrolytes are normal. PTT is therapeutic at 47.6. WBC count is 9.2 hemoglobin is 10 Patient was reevaluated today on 02/26/20, remains in the ICU, intubated and mechanically ventilated. Patient is on assist control rate of 14 volume control plus of 450 FiO2 is 35% PEEP is 5 ABG showed a pO2 of 110 pCO2 of 37 pH of 7.48. Patient remains on heparin drip, propofol drip at 10 mcg/kg/m, not requiring any pressors. He is on tube feedings via J-tube. Patient was intubated on 02/18, and daily trials for weaning the patient has failed. Today I will try again with a pressure support of 14 and CPAP. I was markings the patient for almost an hour while I was in the ICU, and he seemed to tolerate that mode of weaning fairly well, patient was moving tidal volumes above 500 mL, and his respiratory rate was in the low 20s. Patient is arousable, follows simple instructions, but seems to be very swollen and generally weak. Chest x-ray shows unchanged bibasilar airspace opacities and bilateral pleural effusion, ultrasound of the chest failed to show significant effusion to consider thoracentesis. Reevaluated today on 02/27/20, patient remains in the ICU, on mechanical ventilation, ventilator settings are assist control rate of 14 tidal volume is 450 FiO2 is 35% and PEEP of 5. ABG this morning showed a pO2 of 111 pCO2 of 36 pH of 7.48. Patient is on heparin, he is hemodynamically stable, discontinued the prevent this morning, and gave the patient a weaning trial, utilizes pressure support of 12 and CPAP, however after 1 hour patient developed atrial fibrillation with RVR, and had to be placed back on assist control mode of mechanical ventilation. Chest x-ray continues to show significant consolidation in the lower lobes. Bilaterally. Nasogastric tube was noted to be high in the esophagus, and advanced down. Basic metabolic profile is normal. Renal profile is normal. WBC count is 5.7 hemoglobin is 10.5. Patient remains empirically on antibiotics/Zosyn for aspiration pneumonia. And we have been trying to wean the patient almost on a daily basis, yesterday he lasted about 5 hours on pressure support of 14 and CPAP. Today I have recommended surgical evaluation patient is definitely failure to wean, and I believe the patient will require tracheostomy. Objective - Vital Signs Vital signs: Vital Signs Temp 98 F 02/27/20 12:00 Pulse 137 H 02/27/20 12:00 Resp 18 02/27/20 12:00 BP 118/70 02/27/20 12:00 Pulse Ox 93 L 02/27/20 12:00 Intake & Output 02/26/20 02/27/20 02/27/20 18:59 06:59 18:59 Intake Total 430.235 836.254 402.5 Output Total 725 645 300 Balance -294.765 191.254 102.5 Weight 70.1 kg 68 kg Intake: IV 230 133 62.5 0.9 Normal Saline as 30 33 15 pressure bag @ 3mL/hr Piperacillin-Tazobactam 3 100 37.5 .375 gm In Sodium Chloride 0.9% 100 ml @ 25 mls/hr IVPB Q8HR [facility] Rx# :[id number] Sodium Chloride 0.9% 1, 100 100 10 000 ml @ 10 mls/hr IV . Q24H [facility] Rx#:[id number] Intake, IV Titration 14.235 283.254 0 Amount Heparin Sod,Pork in 0.45% 231.801 NaCl 25,000 unit In 0.45 % NaCl 1 250ml.bag @ 12 UNITS/KG/HR 7.92 mls/hr IV .Q24H [facility] Rx#: [id number] propofoL 1,000 mg In 14.235 51.453 0 Empty Bag 1 bag @ Titrate IV .Q0M [facility] Rx#: [id number] Tube Feeding 156 330 310 Other 30 90 30 Output: Urine 725 645 300 Other: Voiding Method Indwelling Catheter Indwelling Catheter Indwelling Catheter ABP, PAP, CO, CI - Last Documented Arterial Blood Pressure 178/105 - Exam GENERAL EXAM: Revealed a 64-year-old white male, frail looking, chronically ill- looking, on mechanical ventilation, endotracheal tube and orogastric tubes are intact. HEAD: Normocephalic/atraumatic. EENT: PERRLA, EOMI, neck is supple, no neck masses, no JVD, left subclavian central line is noted CHEST: No chest wall deformity. Symmetrical expansion. LUNGS: Crackles and rhonchi at the bases. Symmetrical chest expansion. CVS: Irregular irregular rhythm, no S3 gallop. No murmur. ABDOMEN: Soft, nontender. No hepatosplenomegaly, normal bowel sounds, no guarding or rigidity. J tube is in place EXTREMITIES: No clubbing edema or cyanosis. MUSCULOSKELETAL: Normal muscle tone. Generalized weakness noted. SKIN: No rashes CENTRAL NERVOUS SYSTEM: Awake, follows simple instructions, generally weak. No gross focal neurologic deficit except for the weakness. - Labs CBC & Chem 7: 02/27/20 04:10 02/27/20 04:10 Labs: Abnormal Lab Results - Last 24 Hours (Table) 02/26/20 02/27/20 02/27/20 Range/Units 19:01 04:10 04:10 RBC 3.67 L (4.30-5.90) m/uL Hgb 10.5 L (13.0-17.5) gm/dL Hct 33.1 L (39.0-53.0) % Lymphocytes # 0.9 L (1.0-4.8) k/uL APTT 47.6 H (22.0-30.0) sec ABG pH (7.35-7.45) ABG pO2 (83-108) mmHg ABG HCO3 (21-25) mmol/L ABG Total CO2 (19-24) mmol/L ABG O2 Saturation (94-97) % Chloride (98-107) mmol/L Glucose (74-99) mg/dL POC Glucose (mg/dL) 107 H (75-99) mg/dL Calcium (8.4-10.2) mg/dL ALT (4-49) U/L Total Protein (6.3-8.2) g/dL Albumin (3.5-5.0) g/dL 02/27/20 02/27/20 02/27/20 Range/Units 04:10 06:10 07:21 RBC (4.30-5.90) m/uL Hgb (13.0-17.5) gm/dL Hct (39.0-53.0) % Lymphocytes # (1.0-4.8) k/uL APTT (22.0-30.0) sec ABG pH 7.48 H (7.35-7.45) ABG pO2 111 H (83-108) mmHg ABG HCO3 27 H (21-25) mmol/L ABG Total CO2 28 H (19-24) mmol/L ABG O2 Saturation 98.8 H (94-97) % Chloride 109 H (98-107) mmol/L Glucose 116 H (74-99) mg/dL POC Glucose (mg/dL) 110 H (75-99) mg/dL Calcium 7.7 L (8.4-10.2) mg/dL ALT 132 H (4-49) U/L Total Protein 5.2 L (6.3-8.2) g/dL Albumin 2.1 L (3.5-5.0) g/dL 02/27/20 Range/Units 11:38 RBC (4.30-5.90) m/uL Hgb (13.0-17.5) gm/dL Hct (39.0-53.0) % Lymphocytes # (1.0-4.8) k/uL APTT (22.0-30.0) sec ABG pH (7.35-7.45) ABG pO2 (83-108) mmHg ABG HCO3 (21-25) mmol/L ABG Total CO2 (19-24) mmol/L ABG O2 Saturation (94-97) % Chloride (98-107) mmol/L Glucose (74-99) mg/dL POC Glucose (mg/dL) 103 H (75-99) mg/dL Calcium (8.4-10.2) mg/dL ALT (4-49) U/L Total Protein (6.3-8.2) g/dL Albumin (3.5-5.0) g/dL Microbiology - Last 24 Hours (Table) 02/24/20 14:45 Gram Stain - Final Other - Other Wound Culture - Final Cassie albicans Klebsiella pneumoniae Assessment and Plan Assessment: Impression: Acute hypoxic respiratory failure secondary to aspiration pneumonia. Sputum has been positive for Klebsiella pneumoniae and the patient remains on Zosyn. Suspect some component of acute diastolic congestive heart failure, remains on diuretics. Patient presented initially with hypotension and hypovolemic shock as well as septic shock, given significant amount of fluids, and that may have contributed to this diastolic congestive heart failure along with his atrial fibrillation and RVR. Atrial fibrillation with RVR, improved, patient is on amiodarone. Remains on IV heparin. History of esophageal cancer, patient is status post gastric pull through and being fed through a J-tube. History of seizure disorder. History of brain aneurysm and previous rupture with residual left-sided weakness. And history of seizures related to the aneurysm. Obstructive sleep apnea syndrome not compliant with CPAP. Non-anion gap metabolic acidosis on presentation secondary to sepsis improving/recovered. Medical debility, patient is wheelchair bound. Failure to wean from mechanical ventilation in spite of multiple trials of pressure support and CPAP. Recommendation: Continue ventilatory support, continue weaning trials, in the meantime I have consulted general surgery for tracheostomy. Continue nutritional support, continue to use the J-tube for feeding. Continue GI and DVT prophylaxis. Continue heparin Failure to establish a PICC line.. Continue IV fluids at KVO. Continue diuretics. Continue Zosyn for aspiration pneumonia. Overall prognosis is extremely poor. We will continue to follow. Critical care time is 32 minutes. Time with Patient: Greater than 30
[2020-02-27 17:56] LABS: Glucose,Whole Blood 117 mg/dL (75-99)
--- NOTE | 2020-02-27 19:16 | P.PN ---
Subjective Progress Note Date: 02/27/20 Principal diagnosis: Leaking J-tube We are re-consulted to see Umesh today for possible tracheostomy placement. Patient had an episode of aspiration that resulted in ventilatory support. He has failed weaning trials today. Patient has had a tracheostomy when he was in his 30s after a brain aneurysm. Patient apparently at that time was hospitalized for up to a year. He has stated that he is interested in ventilatory support to his . Objective - Vital Signs Vital signs: Vital Signs Temp 98.2 F 02/27/20 16:00 Pulse 75 02/27/20 19:00 Resp 16 02/27/20 19:00 BP 118/71 02/27/20 19:00 Pulse Ox 94 L 02/27/20 19:00 Intake & Output 02/27/20 02/27/20 02/28/20 06:59 18:59 06:59 Intake Total 484.476 0453.784 75.0 Output Total 645 2255 70 Balance 191.254 -1170.216 5.0 Weight 68 kg Intake: IV 133 163.5 25.0 0.9 Normal Saline as 33 36 12.5 pressure bag @ 3mL/hr Piperacillin-Tazobactam 3 62.5 12.5 .375 gm In Sodium Chloride 0.9% 100 ml @ 25 mls/hr IVPB Q8HR [facility] Rx# :[id number] Sodium Chloride 0.9% 1, 100 65 000 ml @ 10 mls/hr IV . Q24H [facility] Rx#:[id number] Intake, IV Titration 283.254 21.284 Amount Heparin Sod,Pork in 0.45% 231.801 NaCl 25,000 unit In 0.45 % NaCl 1 250ml.bag @ 12 UNITS/KG/HR 7.92 mls/hr IV .Q24H [facility] Rx#: [id number] propofoL 1,000 mg In 51.453 21.284 Empty Bag 1 bag @ Titrate IV .Q0M [facility] Rx#: [id number] Tube Feeding 330 810 50 Other 90 90 Output: Urine 645 2255 70 Other: Voiding Method Indwelling Catheter Indwelling Catheter ABP, PAP, CO, CI - Last Documented Arterial Blood Pressure 94/50 - Exam Abdomen: Soft, nondistended, nontender, J-tube intact Neck with previous tracheostomy scar noted - Labs CBC & Chem 7: 02/27/20 04:10 02/27/20 17:58 Labs: Abnormal Lab Results - Last 24 Hours (Table) 02/27/20 02/27/20 02/27/20 Range/Units 04:10 04:10 04:10 RBC 3.67 L (4.30-5.90) m/uL Hgb 10.5 L (13.0-17.5) gm/dL Hct 33.1 L (39.0-53.0) % Lymphocytes # 0.9 L (1.0-4.8) k/uL APTT 47.6 H (22.0-30.0) sec ABG pH (7.35-7.45) ABG pO2 (83-108) mmHg ABG HCO3 (21-25) mmol/L ABG Total CO2 (19-24) mmol/L ABG O2 Saturation (94-97) % Chloride 109 H (98-107) mmol/L Glucose 116 H (74-99) mg/dL POC Glucose (mg/dL) (75-99) mg/dL Calcium 7.7 L (8.4-10.2) mg/dL ALT 132 H (4-49) U/L Total Protein 5.2 L (6.3-8.2) g/dL Albumin 2.1 L (3.5-5.0) g/dL 02/27/20 02/27/20 02/27/20 Range/Units 06:10 07:21 11:38 RBC (4.30-5.90) m/uL Hgb (13.0-17.5) gm/dL Hct (39.0-53.0) % Lymphocytes # (1.0-4.8) k/uL APTT (22.0-30.0) sec ABG pH 7.48 H (7.35-7.45) ABG pO2 111 H (83-108) mmHg ABG HCO3 27 H (21-25) mmol/L ABG Total CO2 28 H (19-24) mmol/L ABG O2 Saturation 98.8 H (94-97) % Chloride (98-107) mmol/L Glucose (74-99) mg/dL POC Glucose (mg/dL) 110 H 103 H (75-99) mg/dL Calcium (8.4-10.2) mg/dL ALT (4-49) U/L Total Protein (6.3-8.2) g/dL Albumin (3.5-5.0) g/dL 02/27/20 Range/Units 17:54 RBC (4.30-5.90) m/uL Hgb (13.0-17.5) gm/dL Hct (39.0-53.0) % Lymphocytes # (1.0-4.8) k/uL APTT (22.0-30.0) sec ABG pH (7.35-7.45) ABG pO2 (83-108) mmHg ABG HCO3 (21-25) mmol/L ABG Total CO2 (19-24) mmol/L ABG O2 Saturation (94-97) % Chloride (98-107) mmol/L Glucose (74-99) mg/dL POC Glucose (mg/dL) 117 H (75-99) mg/dL Calcium (8.4-10.2) mg/dL ALT (4-49) U/L Total Protein (6.3-8.2) g/dL Albumin (3.5-5.0) g/dL Microbiology - Last 24 Hours (Table) 02/24/20 14:45 Gram Stain - Final Other - Other Wound Culture - Final Cassie albicans Klebsiella pneumoniae Assessment and Plan (1) Jejunostomy tube leak Narrative/Plan: 64-year-old male with respiratory failure. Tomorrow after weaning trials. If the patient fails and the family is interested Will proceed with tracheostomy placement. Notified the patient's that I will be out of town after tomorrow. Likely will have Dr. Yusuf see this patient and perform the surgery. Patient's family is agreeable. Current Visit: Yes Status: Acute Code(s): K94.13 - ENTEROSTOMY MALFUNCTION SNOMED Code(s): 246006239
[2020-02-27 23:46] LABS: Glucose,Whole Blood 93 mg/dL (75-99)
[2020-02-28 04:46] LABS: Basophils % (A) 0 %; Eosinophils # (A) 0.3 k/uL (0-0.7); Eosinophils % (A) 4 %; HCT 36.4 % (39.0-53.0); HGB 11.2 gm/dL (13.0-17.5); Hypochromasia Slight; Lymphocytes # (A) 0.7 k/uL (1.0-4.8); Lymphocytes % (A) 10 %; MCH 27.9 pg (25.0-35.0); MCHC 30.8 g/dL (31.0-37.0); MCV 90.6 fL (80.0-100.0); Mean Platelet Volume 8.1; Monocytes # (A) 0.3 k/uL (0-1.0); Monocytes % (A) 4 %; Neutrophils # (A) 5.7 k/uL (1.3-7.7); Neutrophils % (A) 81 %; Platelet Count 265 k/uL (150-450); RBC 4.02 m/uL (4.30-5.90); RDW 15.1 % (11.5-15.5)
[2020-02-28] MEDS: HEPARIN SODIUM,PORCINE 5,000 UNIT/ML 1 ML VIAL IV PRN (04:58)
[2020-02-28 05:30] LABS: ALT 115 U/L (4-49); AST 27 U/L (17-59); African American GFR (CKD) >90 (>60 ml/min/1.73 sqM); Albumin 2.5 g/dL (3.5-5.0); Alkaline Phosphatase 102 U/L (38-126); Anion Gap 4 mmol/L; Blood Urea Nitrogen 20 mg/dL (9-20); Calcium 8.1 mg/dL (8.4-10.2); Carbon Dioxide 27 mmol/L (22-30); Chloride 105 mmol/L (98-107); Glucose 139 mg/dL (74-99); Non-African American GFR(CKD) >90 (>60 ml/min/1.73 sqM); Sodium 136 mmol/L (137-145); Total Bilirubin 0.5 mg/dL (0.2-1.3); Total Protein 5.9 g/dL (6.3-8.2)
[2020-02-28 05:51] LABS: Glucose,Whole Blood 112 mg/dL (75-99)
[2020-02-28] MEDS: INSULIN ASPART (NovoLOG) 100 UNIT/ML VIAL SQ SCH ×3 (05:53→18:17)
[2020-02-28] MEDS: METOCLOPRAMIDE 5 MG/ML 2 ML VIAL IVP SCH ×3 (05:54→18:31)
[2020-02-28 07:21] LABS: ABG Base Excess 4.1 mmol/L; ABG HCO3 27 mmol/L (21-25); ABG Oxygen Saturation 98.7 % (94-97); ABG PCO2 36 mmHg (35-45); ABG PH 7.49 (7.35-7.45); ABG PO2 111 mmHg (83-108); ABG TCO2 29 mmol/L (19-24)
[2020-02-28 07:24] LABS: Allen Test Performed? NO
[2020-02-28] MEDS: IPRATROPIUM-ALBUTEROL 3 ML NEB INHALATION SCH ×4 (07:44→19:43)
[2020-02-28] MEDS: AMIODARONE 200 MG TAB PO SCH ×2 (09:12→21:38)
[2020-02-28] MEDS: METOPROLOL TARTRATE 25 MG TAB PO SCH ×2 (09:12→21:38)
[2020-02-28] MEDS: NYSTATIN 100,000 UNIT/GM POWD 15 GM TOPICAL SCH ×2 (09:13→21:38)
[2020-02-28] MEDS: CHLORHEXIDINE GLUCONATE 15 ML CUP MUCOUS MEM SCH (09:13)
[2020-02-28] MEDS: PIPERACILLIN-TAZOBACTAM 3.375 GM in SODIUM CHLORIDE 0.9% 100 ML IVPB SCH ×2 (10:13→16:00)
[2020-02-28] MEDS: NOREPINEPHRINE 32 MG in SODIUM CHLORIDE 0.9% 218 ML IV SCH (10:13)
--- NOTE | 2020-02-28 10:13 | XR ---
EXAMINATION TYPE: XR chest 1V DATE OF EXAM: 02/28/2020 CLINICAL HISTORY: Intubation TECHNIQUE: Portable semiupright COMPARISON: 02/27/2020 chest radiograph FINDINGS: Endotracheal tube distal tip approximately 2.0 cm and the javan. Interval advancement of the enteric tube versus 02/27/2020, which now overlies the cardiac silhouette in the expected region of the gastric pull-through. Left subclavian central venous catheter and incompletely visualized righ t ventriculoperitoneal shunt catheter redemonstrated. The cardiomediastinal silhouette is unchanged. Bilateral airspace opacities and pleural effusions unchanged. No pneumothorax, although soft tissue o f the neck overlaps the right lung apex. IMPRESSION: Unchanged bilateral pleural effusions and bibasilar airspace opacities.
[2020-02-28] MEDS: PANTOPRAZOLE 40 MG/10 ML VIAL IVP SCH (10:19)
--- NOTE | 2020-02-28 11:19 | P.PN ---
Subjective This is a pleasant 64-year-old male past medical history significant for paroxysmal atrial fibrillation on long-term anticoagulation, esophageal cancer with J-tube in place, hypertension and brain aneurysm in the past. He follows in the office with Dr. Claros. He currently on mechanical ventilation. He is currently maintaining sinus rhythm with heart rate in the 80's. Blood pressure 115/62. Continues to be maintained on heparin infusion. Possible PICC line and tracheostomy today or tomorrow. Laboratory data reviewed, WBC 7, hemoglobin 11.2, platelets 265, pH 7.49, pCO2 36, pO2 111, bicarb 27, sodium 136, potassium 4.0, creatinine 0.72. GENERAL: Comfortable in bed on mechanical ventilation. NECK: Supple without JVD or thyromegaly. LUNGS: Respiration equal and unlabored. Diminished bilaterally. HEART: Regular rate and rhythm without murmurs, rubs or gallops. S1 and S2 heard. EXTREMITIES: Normal range of motion, no edema noted. No clubbing or cyanosis. Peripheral pulses intact. ASSESSMENT Paroxysmal atrial fibrillation on Eliquis for anticoagulation currently maintaining sinus mechanism Acute hypoxic respiratory failure requiring mechanical ventilation Asystole arrest Aspiration pneumonia Lactic acidosis Leukocytosis Acute systolic heart failure s/p cardiac arrest History of esophageal cancer status post J-tube placement Hypertension History of brain aneurysm with [employer] shunt Non-sustained ventricular tachycardia. PLAN We recommend resuming coumadin when ok with the pulmonary care team pending possible PICC line and trach placement. Amiodarone taper to begin tomorrow, 200 mg twice a day Heart rate controlled on current medical regimen. Nurse Practitioner note has been reviewed, I agree with a documented findings and plan of care. Patient was seen and examined. Objective - Vital Signs Vital signs: Vital Signs Temp 98.1 F 02/28/20 08:00 Pulse 61 02/28/20 11:00 Resp 22 02/28/20 11:00 BP 111/67 02/28/20 09:00 Pulse Ox 95 02/28/20 11:00 Intake & Output 02/27/20 02/28/20 02/28/20 18:59 06:59 18:59 Intake Total 8062.421 7160.510 535.134 Output Total 2255 935 500 Balance -1170.216 801.510 35.134 Weight 65 kg Intake: IV 163.5 290.0 177 0.9 Normal Saline as 36 42.5 27 pressure bag @ 3mL/hr Piperacillin-Tazobactam 3 62.5 137.5 100 .375 gm In Sodium Chloride 0.9% 100 ml @ 25 mls/hr IVPB Q8HR [facility] Rx# :[id number] Sodium Chloride 0.9% 1, 65 110 50 000 ml @ 10 mls/hr IV . Q24H [facility]ER Rx#:[id number] Intake, IV Titration 21.284 436.510 28.134 Amount Heparin Sod,Pork in 0.45% 350.150 NaCl 25,000 unit In 0.45 % NaCl 1 250ml.bag @ 12 UNITS/KG/HR 7.92 mls/hr IV .Q24H EDER Rx#: [id number] propofoL 1,000 mg In 21.284 86.360 28.134 Empty Bag 1 bag @ Titrate IV .Q0M EDER Rx#: [id number] Tube Feeding 810 920 300 Other 90 90 30 Output: Gastric Drainage 150 Urine 2255 935 350 Other: Voiding Method Indwelling Catheter Indwelling Catheter ABP, PAP, CO, CI - Last Documented Arterial Blood Pressure 135/69 - Labs CBC & Chem 7: 02/28/20 04:10 02/28/20 04:10 Labs: Abnormal Lab Results - Last 24 Hours (Table) 02/27/20 02/27/20 02/28/20 Range/Units 11:38 17:54 04:10 RBC (4.30-5.90) m/uL Hgb (13.0-17.5) gm/dL Hct (39.0-53.0) % MCHC (31.0-37.0) g/dL Lymphocytes # (1.0-4.8) k/uL APTT 43.4 H (22.0-30.0) sec ABG pH (7.35-7.45) ABG pO2 (83-108) mmHg ABG HCO3 (21-25) mmol/L ABG Total CO2 (19-24) mmol/L ABG O2 Saturation (94-97) % Sodium (137-145) mmol/L Glucose (74-99) mg/dL POC Glucose (mg/dL) 103 H 117 H (75-99) mg/dL Calcium (8.4-10.2) mg/dL ALT (4-49) U/L Total Protein (6.3-8.2) g/dL Albumin (3.5-5.0) g/dL 02/28/20 02/28/20 02/28/20 Range/Units 04:10 04:10 05:50 RBC 4.02 L (4.30-5.90) m/uL Hgb 11.2 L (13.0-17.5) gm/dL Hct 36.4 L (39.0-53.0) % MCHC 30.8 L (31.0-37.0) g/dL Lymphocytes # 0.7 L (1.0-4.8) k/uL APTT (22.0-30.0) sec ABG pH (7.35-7.45) ABG pO2 (83-108) mmHg ABG HCO3 (21-25) mmol/L ABG Total CO2 (19-24) mmol/L ABG O2 Saturation (94-97) % Sodium 136 L (137-145) mmol/L Glucose 139 H (74-99) mg/dL POC Glucose (mg/dL) 112 H (75-99) mg/dL Calcium 8.1 L (8.4-10.2) mg/dL ALT 115 H (4-49) U/L Total Protein 5.9 L (6.3-8.2) g/dL Albumin 2.5 L (3.5-5.0) g/dL 02/28/20 Range/Units 07:16 RBC (4.30-5.90) m/uL Hgb (13.0-17.5) gm/dL Hct (39.0-53.0) % MCHC (31.0-37.0) g/dL Lymphocytes # (1.0-4.8) k/uL APTT (22.0-30.0) sec ABG pH 7.49 H (7.35-7.45) ABG pO2 111 H (83-108) mmHg ABG HCO3 27 H (21-25) mmol/L ABG Total CO2 29 H (19-24) mmol/L ABG O2 Saturation 98.7 H (94-97) % Sodium (137-145) mmol/L Glucose (74-99) mg/dL POC Glucose (mg/dL) (75-99) mg/dL Calcium (8.4-10.2) mg/dL ALT (4-49) U/L Total Protein (6.3-8.2) g/dL Albumin (3.5-5.0) g/dL
--- NOTE | 2020-02-28 11:49 | P.PN ---
Subjective Acute hypoxic respiratory failure probably secondary to pneumonia 64-year-old the male admitted for pneumonia bilateral, predominantly in the right lower lobes. There is a concern about aspiration patient has been vomiting. Patient does take a modified diet by mouth at home does have a PEG tube in place. Patient the antibiotics were changed to Zosyn which is appropriate. Patient went into respiratory distress on some requirements have gone up because of which patient was transferred to ICU later in the day patient started having A. fib with rapid ventricular rate because of which patient was started on Cardizem and cardiology was consulted. I'm also consulting speech therapy because of his swallowing issues to assess if her appropriate for the patient to be continued on modified diet by mouth. 02/13/2020 Patient clinically looks better patient is being continued on Zosyn continued on IV fluids. Patient will undergo swallow evaluation today speech therapy was consulted. Patient remains nothing by mouth patient is being started on Eliquis for the atrial fibrillation anticoagulation patient is presently on oral amiodarone heart rate is better controlled today. On 02/14/2020 Patient is currently sitting in the chair comfortably. Still having baseline shortness of breath and bibasilar crackles on examination. Currently on high flow oxygen. Chest x-ray showed findings are not significantly changed. Basilar effusions an d associated atelectasis versus pulmonary edema. Patient is being continued on IV antibiotic without Zosyn for possible aspiration and also a dose of Lasix IV was given. Patient has been continued on telemetry monitoring and heart rate is better controlled. Current medications reviewed. 02/15/2020 Patient is currently sitting in the chair comfortably. Saturating around 95% on 6 L oxygen via nasal cannula. Patient was started back on tube feedings today. Patient otherwise denied any complaints of chest pain worsening shortness breath. No nausea vomiting. Denied any abdominal pain. Currently maintaining sinus rhythm. Continued on Eliquis and amiodarone and cardiology is on board. Chest x-ray showed findings are not significantly changed. Basilar effusions and associated atelectasis versus pulmonary edema/pneumonia. Patient is on antibiotics in the form of Zosyn. Laboratory data showed WBC 10.7, hemoglobin 12.8 and platelets of 224 BUN is 18 and creatinine 0.58 Pulmonary and cardiology and general surgery is on board. Current medications reviewed On 02/16/2020 Patient is currently sitting in chair comfortably. Pulse ox about 90s at 3 L via nasal cannula. No fever no chills. Patient is being continued IV antibiotics.tube feedings were started and advance as tolerated. Blood and sputum cultures show no growth. Wound cultures from the abdomen showed Cassie albicans. Continued on dressing changes. No surgical intervention recommended. General surgery has seen the patient. Laboratory data showed WBC 10.0 hemoglobin 12.0 and platelets 253 BUN 16 and creatinine 0.61 patient is being transferred to general medical floor. 02/17/2020 Patient is currently lying in the bed comfortably. Still requiring oxygen at 3 L via nasal cannula. Awake alert oriented but lethargic. No fever no chills. Patient is being continued on antibiotics now for Zosyn. Chest x-ray showed right basilar infiltrates with small bilateral pleural effusions stable from comparison. Patient is tolerating tube feedings at 50 cc/h PEG tube site wound cultures showed Cassie albicans. Patient is being continued on duo nebs and Pulmicort. Heart rate is controlled. Anticoagulation with Eliquis and also on amiodarone and metoprolol 3 times daily. Cardiology and pulmonary is following. Laboratory data showed potassium 3.7, BUN 16 and creatinine 0.6 and hemoglobin 12.3 WBC 9.4 Discussed with his at bedside in detail. 02/18/2020 Patient had a repeat CAT scan which did show the infiltrates that were present before no significant worsening of these infiltrates. Patient cannot take an ything via by mouth but will continue his J-tube feedings. 02/19/2020 Patient was doing well earlier today morning and subsequently went into respiratory failure again presently requiring BiPAP. Repeat chest x-ray did not show any new infiltrate. 02/20/2020 Patient underwent respiratory failure patient is presently intubated patient the is on pressor support as well. Patient coded with asystole for few minutes and was successfully resuscitated after that patient does have pupillary reflexes patient did receive a paralytic agents because of which unable to assess the cough or gag reflex at this time. 02/21/2020 Patient can use to be a mechanical ventilator on propofol drip patient is on assist-control ventilation 50% FiO2 pupils and patient does have bilateral airspace disease bilateral pleural effusions patient remains on Zosyn and vancomycin patient remains on norepinephrine, amiodarone and Cardizem drips. Patient presently has an NG tube and J-tube 02/22/2020 Patient remains on ventilator support patient has significant out from the NG tube barely getting anything to J-tube his prognosis is externally poor will discuss with the family regarding his overall goals of care again. Potassium is extremely low and replaced. Patient remains on pressor support at 5 mcgs per ho ur. 02/23/2020 Patient failed the weaning trial today. Patient continues to be on norepinephrine. Patient went settings are bit better today is some pulmonary edema on the chest x-ray. Patient has about 300 mL from OG tube. Patient is receiving J-tube feedings at a very slow rate 02/24/2020. Patient is a mechanical ventilator failed weaning today patient RSBI was 66. Patient is presently on assist-control ventilation patient's heart rate is presently controlled with frequent PVCs, patient OG tube output is very minimal patient is presently receiving J-tube feedings at that 20-25 mL/h target is 30 mL per hour believe patient is presently not on any pressor support patient is presently on metoprolol 02/25/2020 Patient is on sedation when I valid the patient patient is awake and answering questions with head nodding denied any pain remains on ventilator support appears to have been improving but extremely slowly. Patient is presently on IV heparin and Coumadin is on hold 02/26/2020 Patient remains intubated patient is receiving J-tube feedings without any problem patient is doing well on laceration medication patient remains in intubatedand weaning trials and extubation as per pulmonary patient is on CPAP today. Doing fairly well. Patient has significant effusion in the chest bilateralparacentesis is being considered 02/27/2020 Patient is on sedation vacation today awake denied any pain. Patient will undergo weaning trial again today patient will be started on CPAP now patient tolerated CPAP for a few hours very well yesterday patient is able to tolerate tube feedings at 40 mL/hand output from theOG tube 02/28/2020 Patient is able to tolerate tube feedings patient tolerated CPAP for about 5 versus today tracheostomy is being considered. Patient will undergo weaning trial again today. If he feels weaning trials patient may need tracheostomy at that time. Patient has an output of around 100 mL from the OG tube Review of systems: Unable to obtain due to his clinical condition All inpatient medications were reviewed and appropriate changes in these medications as dictated in the interval history and assessment and plan. Objective - Vital Signs Vital signs: Vital Signs Temp 98.1 F 02/28/20 08:00 Pulse 73 02/28/20 11:32 Resp 22 02/28/20 11:00 BP 111/67 02/28/20 09:00 Pulse Ox 95 02/28/20 11:00 Intake & Output 02/27/20 02/28/20 02/28/20 18:59 06:59 18:59 Intake Total 4520.062 3567.510 535.134 Output Total 2255 935 500 Balance -1170.216 801.510 35.134 Weight 65 kg Intake: IV 163.5 290.0 177 0.9 Normal Saline as 36 42.5 27 pressure bag @ 3mL/hr Piperacillin-Tazobactam 3 62.5 137.5 100 .375 gm In Sodium Chloride 0.9% 100 ml @ 25 mls/hr IVPB Q8HR [facility] Rx# :[id number] Sodium Chloride 0.9% 1, 65 110 50 000 ml @ 10 mls/hr IV . Q24H [facility] Rx#:[id number] Intake, IV Titration 21.284 436.510 28.134 Amount Heparin Sod,Pork in 0.45% 350.150 NaCl 25,000 unit In 0.45 % NaCl 1 250ml.bag @ 12 UNITS/KG/HR 7.92 mls/hr IV .Q24H [facility] Rx#: [id number] propofoL 1,000 mg In 21.284 86.360 28.134 Empty Bag 1 bag @ Titrate IV .Q0M [facility]ER Rx#: [id number] Tube Feeding 810 920 300 Other 90 90 30 Output: Gastric Drainage 150 Urine 2255 935 350 Other: Voiding Method Indwelling Catheter Indwelling Catheter ABP, PAP, CO, CI - Last Documented Arterial Blood Pressure 135/69 - Exam PHYSICAL EXAMINATION: GENERAL: Patient is intubated, off sedation and is awake HEENT: Pupils are round and equally reacting to light. EOMI. No scleral icterus. No conjunctival pallor. Normocephalic, atraumatic. No pharyngeal erythema. No thyromegaly. CARDIOVASCULAR: S1 and S2 present. No murmurs, rubs, or gallops. PULMONARY: Diffuse bilateral rhonchi and crackles bibasilar ABDOMEN: Soft, nontender, nondistended, normoactive bowel sounds. No palpable or ganomegaly. MUSCULOSKELETAL: No joint swelling or deformity. EXTREMITIES: No cyanosis, clubbing, or pedal edema. NEUROLOGICAL: Patient is awake and nodding head off sedation presently SKIN: No rashes. - Labs CBC & Chem 7: 02/28/20 04:10 02/28/20 04:10 Labs: Abnormal Lab Results - Last 24 Hours (Table) 02/27/20 02/28/20 02/28/20 Range/Units 17:54 04:10 04:10 RBC 4.02 L (4.30-5.90) m/uL Hgb 11.2 L (13.0-17.5) gm/dL Hct 36.4 L (39.0-53.0) % MCHC 30.8 L (31.0-37.0) g/dL Lymphocytes # 0.7 L (1.0-4.8) k/uL APTT 43.4 H (22.0-30.0) sec ABG pH (7.35-7.45) ABG pO2 (83-108) mmHg ABG HCO3 (21-25) mmol/L ABG Total CO2 (19-24) mmol/L ABG O2 Saturation (94-97) % Sodium (137-145) mmol/L Glucose (74-99) mg/dL POC Glucose (mg/dL) 117 H (75-99) mg/dL Calcium (8.4-10.2) mg/dL ALT (4-49) U/L Total Protein (6.3-8.2) g/dL Albumin (3.5-5.0) g/dL 02/28/20 02/28/20 02/28/20 Range/Units 04:10 05:50 07:16 RBC (4.30-5.90) m/uL Hgb (13.0-17.5) gm/dL Hct (39.0-53.0) % MCHC (31.0-37.0) g/dL Lymphocytes # (1.0-4.8) k/uL APTT (22.0-30.0) sec ABG pH 7.49 H (7.35-7.45) ABG pO2 111 H (83-108) mmHg ABG HCO3 27 H (21-25) mmol/L ABG Total CO2 29 H (19-24) mmol/L ABG O2 Saturation 98.7 H (94-97) % Sodium 136 L (137-145) mmol/L Glucose 139 H (74-99) mg/dL POC Glucose (mg/dL) 112 H (75-99) mg/dL Calcium 8.1 L (8.4-10.2) mg/dL ALT 115 H (4-49) U/L Total Protein 5.9 L (6.3-8.2) g/dL Albumin 2.5 L (3.5-5.0) g/dL 10/15/20 Range/Units 10:05 RBC (4.30-5.90) m/uL Hgb (13.0-17.5) gm/dL Hct (39.0-53.0) % MCHC (31.0-37.0) g/dL Lymphocytes # (1.0-4.8) k/uL APTT 52.3 H (22.0-30.0) sec ABG pH (7.35-7.45) ABG pO2 (83-108) mmHg ABG HCO3 (21-25) mmol/L ABG Total CO2 (19-24) mmol/L ABG O2 Saturation (94-97) % Sodium (137-145) mmol/L Glucose (74-99) mg/dL POC Glucose (mg/dL) (75-99) mg/dL Calcium (8.4-10.2) mg/dL ALT (4-49) U/L Total Protein (6.3-8.2) g/dL Albumin (3.5-5.0) g/dL Assessment and Plan Plan: -Acute hypoxic respiratory failure secondary to pneumonia predominantly in the right. patient does have pleural effusions on both sides. Patient is on Zosyn at this time there is a concern for aspiration. Patient is presently intubated on assist-control ventilation please refer to pulmonology documentation for vent settings. patient is tolerating BiPAP very well . -Septic shock: Shock resolved patient is off norepinephrine -Paraxysmal Atrial fibrillation with rapid ventricular rate Patient is being switched to Eliquis. Patient is presently on amiodarone, off Cardizem. -gastroesophageal reflux disease, patient said J-tube feedings were reinitiated receiving tube feedings at ne and patient has nosignificant output from the OG tube -Hypertension -benign prostatic hypertrophy -History of renal cancer and esophageal cancer with dysphagia and a J-tube . -History of cerebral aneurysm. -KAROL His overall prognosis is extremely poor
[2020-02-28 12:07] LABS: Glucose,Whole Blood 110 mg/dL (75-99)
[2020-02-28] MEDS: SODIUM CHLORIDE 0.9% 1,000 ML IV SCH (13:55)
--- NOTE | 2020-02-28 14:13 | P.PN ---
Subjective Progress Note Date: 02/28/20 Principal diagnosis: Leaking J-tube Patient remains on the ventilator however he is currently on CPAP and doing fairly well. Plans are to attempt extubation later today if things go well. No new complaints. Objective - Vital Signs Vital signs: Vital Signs Temp 98.1 F 02/28/20 12:00 Pulse 74 02/28/20 14:00 Resp 95 H 02/28/20 14:00 BP 117/76 02/28/20 13:00 Pulse Ox 94 L 02/28/20 14:00 Intake & Output 02/27/20 02/28/20 02/28/20 18:59 06:59 18:59 Intake Total 2191.969 7360.510 793.134 Output Total 2255 935 675 Balance -1170.216 801.510 118.134 Weight 65 kg Intake: IV 163.5 290.0 225 0.9 Normal Saline as 36 42.5 45 pressure bag @ 3mL/hr Piperacillin-Tazobactam 3 62.5 137.5 100 .375 gm In Sodium Chloride 0.9% 100 ml @ 25 mls/hr IVPB Q8HR [facility]ER Rx# :[id number] Sodium Chloride 0.9% 1, 65 110 80 000 ml @ 10 mls/hr IV . Q24H [facility] Rx#:[id number] Intake, IV Titration 21.284 436.510 28.134 Amount Heparin Sod,Pork in 0.45% 350.150 NaCl 25,000 unit In 0.45 % NaCl 1 250ml.bag @ 12 UNITS/KG/HR 7.92 mls/hr IV .Q24H EDER Rx#: [id number] propofoL 1,000 mg In 21.284 86.360 28.134 Empty Bag 1 bag @ Titrate IV .Q0M EDER Rx#: [id number] Tube Feeding 810 920 480 Other 90 90 60 Output: Gastric Drainage 150 Urine 2255 935 525 Other: Voiding Method Indwelling Catheter Indwelling Catheter ABP, PAP, CO, CI - Last Documented Arterial Blood Pressure 116/79 - Exam Abdomen: Soft, nontender, nondistended, J-tube in place - Labs CBC & Chem 7: 02/28/20 04:10 02/28/20 04:10 Labs: Abnormal Lab Results - Last 24 Hours (Table) 02/27/20 02/28/20 02/28/20 Range/Units 17:54 04:10 04:10 RBC 4.02 L (4.30-5.90) m/uL Hgb 11.2 L (13.0-17.5) gm/dL Hct 36.4 L (39.0-53.0) % MCHC 30.8 L (31.0-37.0) g/dL Lymphocytes # 0.7 L (1.0-4.8) k/uL APTT 43.4 H (22.0-30.0) sec ABG pH (7.35-7.45) ABG pO2 (83-108) mmHg ABG HCO3 (21-25) mmol/L ABG Total CO2 (19-24) mmol/L ABG O2 Saturation (94-97) % Sodium (137-145) mmol/L Glucose (74-99) mg/dL POC Glucose (mg/dL) 117 H (75-99) mg/dL Calcium (8.4-10.2) mg/dL ALT (4-49) U/L Total Protein (6.3-8.2) g/dL Albumin (3.5-5.0) g/dL 02/28/20 02/28/20 02/28/20 Range/Units 04:10 05:50 07:16 RBC (4.30-5.90) m/uL Hgb (13.0-17.5) gm/dL Hct (39.0-53.0) % MCHC (31.0-37.0) g/dL Lymphocytes # (1.0-4.8) k/uL APTT (22.0-30.0) sec ABG pH 7.49 H (7.35-7.45) ABG pO2 111 H (83-108) mmHg ABG HCO3 27 H (21-25) mmol/L ABG Total CO2 29 H (19-24) mmol/L ABG O2 Saturation 98.7 H (94-97) % Sodium 136 L (137-145) mmol/L Glucose 139 H (74-99) mg/dL POC Glucose (mg/dL) 112 H (75-99) mg/dL Calcium 8.1 L (8.4-10.2) mg/dL ALT 115 H (4-49) U/L Total Protein 5.9 L (6.3-8.2) g/dL Albumin 2.5 L (3.5-5.0) g/dL 02/28/20 02/28/20 Range/Units 10:05 12:06 RBC (4.30-5.90) m/uL Hgb (13.0-17.5) gm/dL Hct (39.0-53.0) % MCHC (31.0-37.0) g/dL Lymphocytes # (1.0-4.8) k/uL APTT 52.3 H (22.0-30.0) sec ABG pH (7.35-7.45) ABG pO2 (83-108) mmHg ABG HCO3 (21-25) mmol/L ABG Total CO2 (19-24) mmol/L ABG O2 Saturation (94-97) % Sodium (137-145) mmol/L Glucose (74-99) mg/dL POC Glucose (mg/dL) 110 H (75-99) mg/dL Calcium (8.4-10.2) mg/dL ALT (4-49) U/L Total Protein (6.3-8.2) g/dL Albumin (3.5-5.0) g/dL Assessment and Plan (1) Jejunostomy tube leak Narrative/Plan: Continue weaning trials. If he fails plans are for tracheostomy placement by Dr. Yusuf tomorrow. Current Visit: Yes Status: Acute Code(s): K94.13 - ENTEROSTOMY MALFUNCTION SNOMED Code(s): 699356769
--- NOTE | 2020-02-28 15:06 | P.PN ---
Subjective Progress Note Date: 02/28/20 Principal diagnosis: Acute hypoxic respiratory failure secondary to aspiration pneumonia. This is a 64-year-old white male patient of Dr. Claude Deluna that was admitted through the emergency department on 02/11/2020 when he came in for evaluation of shortness of breath, hypoxemia. Patient has a known history of esophageal cancer status post chemotherapy and NG tube placement, has a known history of COPD and CHF. Patient was started on empiric antibiotics in the form of Zosyn, nebulized bronchodilators, and diuretics, did require high flow oxygen per Airvo, which was discontinued yesterday, patient is currently on 6 L of oxygen per high flow nasal cannula with a pulse ox of 93-95%, his tube feedings were held yesterday related to some leaking around the bolster, surgical services were consulted and Dr. Styles adjusted the bolster, and tube feedings were resumed today, with TwoCal HN currently at 10 ML per hour. Of note previously patient was receiving tube feedings and consuming some nausea fluids by mouth. He is currently strict nothing by mouth, and receiving all of his nutrition via his J-tube. He is sounding much less congested today, bronchospastic, breathing easier, more comfortably, he sitting up in the chair. His vital signs are stable, his been afebrile, hemodynamically stable, 0.9 normal saline infusing at a rate of 20 ML per hour, yesterday he received a dose of Lasix, and he produces 2.8 L and urine output, he is -1.4 L over last 24 hours, indwelling catheter is in place. On admission patient was in A. fib with RVR, he is currently in sinus mechanism, he is on oral amiodarone and Eliquis for anticoagulation, cardiology services are following. Today's chest x-ray has been reviewed, showing stable diffuse pleural parenchymal disease related to aspiration pneumonia. Today's labs have been reviewed, showing white blood cell, 10.7, hemoglobin of 12.8, sodium is 140, potassium is 3.4, the rest of electrolytes were within normal limits, BUN is 18 creatinine 0.58. All microbiology has shown no growth. He is on Zosyn for antibiotic coverage. On 02/23/2020, the patient is being seen for a follow-up. This morning the patient's upper quadrant 30 mg per KG per minute. I was told by nursing staff the patient was given a sedation holiday yesterday following that the patient aroused and he was able to follow some commands. In general, the patient is doing well. He is hemodynamically stable. He was taken gradually off levo fed and the norepinephrine infusion is currently running at 0.1 g per KG per minute. He is also on normal saline at the rate of 75 mL an hour. Doing well. No specific issues overnight. On a mechanical ventilator, he remains on assist control mode at the rate of 14 with a tidal volume of 450 and FiO2 of 50% with a PEEP of 5. The patient's blood gases from today showed a pH of 7.51 with a pCO2 of 32 and pO2 of 11. Chest x-ray shows increased interstitial markings bilaterally along with a component of pulmonary edema in addition to gastric pull-through and lower lobe consolidations and effusions that are present on previous evaluations. I feel that the patient is going into some degree of fluid overload. The neck fluid balance is been +2.8 L over the past 24 hours. The sputum culture was positive for Klebsiella. The patient is afebrile. No other issues for now. J-tube feeding will be started today. NG tube in place and output has been only 150 mL over the past 12 hours. The patient is covered with Zosyn and vancomycin and the vancomycin will be discontinued. On 02/24/2020, the patient is being seen for a follow-up. Patient is getting another sedation holiday as the patient may be able to wean off the mechanical ventilator. He is on a minimal dose of propofol for now. He is on a assist control mode of ventilation at the rate of 14 with a tidal volume of 450 and FiO2 of 35% with a PEEP of 5. PH is at 7.48 with a pCO2 of 40 and pO2 148. IV fluids at KVO. The patient remains on IV heparin. The patient remains on levo fed at 0.06 units per KG per minute. He is receiving enteral feeding with protein high-calorie at the rate of 50 mL an hour. NG tube is in place and output is minimal at this point in time. The patient was given Lasix yesterday 40 mg IV push and the neck fluid balance has been -2.7 L. Chest x-ray showing some improvement in the volume status. ET tube is in a good location. NG tube in good location. Further diuresis may be of benefit. No abdominal distention. Adequate pulses in all 4 extremities. Arousable. He is in the process of getting a sedation holiday to be checked for his weaning parameters. Patient was reevaluated today on 02/25/20, remains in the ICU, remains intubated and mechanically ventilated. His ventilator settings are assist control rate of 14, volume control plus with tidal volume is 450 FiO2 35% PEEP of 5. ABG this a.m. showed a pO2 of 94 pCO2 of 37 pH of 7.50. Patient was initially admitted on 02/10 and he was intubated on 02/18 when the rapid response team responded to a CODE BLUE. Patient is on propofol at 10 mcg/kg/m, he is also on heparin, and not requiring any pressors. Over the last few days, patient had multiple trials of spontaneous breathing trials and definitely some of them were done over the weekend, however the patient lasted at the most 455 minutes. Remains on tube feeding at 30 MLS per hour. Chest x-ray today showed evidence of bilateral pleural effusions, and I am recommending ultrasound of the chest, will likely consider thoracentesis on this patient if the fluid is large enough to be drained safely. Ultrasound showed small pockets not safe to drain at this time. The left side is only is 0.6 cm pockets and the right side is only 1.8 cm pocket. All labs were reviewed renal profile is normal. Electrolytes are normal. PTT is therapeutic at 47.6. WBC count is 9.2 hemoglobin is 10 Patient was reevaluated today on 02/26/20, remains in the ICU, intubated and mechanically ventilated. Patient is on assist control rate of 14 volume control plus of 450 FiO2 is 35% PEEP is 5 ABG showed a pO2 of 110 pCO2 of 37 pH of 7.48. Patient remains on heparin drip, propofol drip at 10 mcg/kg/m, not requiring any pressors. He is on tube feedings via J-tube. Patient was intubated on 02/18, and daily trials for weaning the patient has failed. Today I will try again with a pressure support of 14 and CPAP. I was markings the patient for almost an hour while I was in the ICU, and he seemed to tolerate that mode of weaning fairly well, patient was moving tidal volumes above 500 mL, and his respiratory rate was in the low 20s. Patient is arousable, follows simple instructions, but seems to be very swollen and generally weak. Chest x-ray shows unchanged bibasilar airspace opacities and bilateral pleural effusion, ultrasound of the chest failed to show significant effusion to consider thoracentesis. Reevaluated today on 02/27/20, patient remains in the ICU, on mechanical ventilation, ventilator settings are assist control rate of 14 tidal volume is 450 FiO2 is 35% and PEEP of 5. ABG this morning showed a pO2 of 111 pCO2 of 36 pH of 7.48. Patient is on heparin, he is hemodynamically stable, discontinued the prevent this morning, and gave the patient a weaning trial, utilizes pressure support of 12 and CPAP, however after 1 hour patient developed atrial fibrillation with RVR, and had to be placed back on assist control mode of mechanical ventilation. Chest x-ray continues to show significant consolidation in the lower lobes. Bilaterally. Nasogastric tube was noted to be high in the esophagus, and advanced down. Basic metabolic profile is normal. Renal profile is normal. WBC count is 5.7 hemoglobin is 10.5. Patient remains empirically on antibiotics/Zosyn for aspiration pneumonia. And we have been trying to wean the patient almost on a daily basis, yesterday he lasted about 5 hours on pressure support of 14 and CPAP. Today I have recommended surgical evaluation patient is definitely failure to wean, and I believe the patient will require tracheostomy. Patient was reevaluated today on 02/28/20, remains in the ICU, intubated and mechanically ventilated. His ventilator settings are assist control rate of 14 tidal volume is 450 FiO2 is 35% PEEP of 5. ABG this morning showed a pO2 of 111 pCO2 of 36 pH of 7.49. Patient remains on propofol and heparin drip. He is hemodynamically stable, not requiring any pressors. However for the last 4 days I have been attempting to wean the patient, and has been not successful so far. Today I plan to try again on the pressure support of 12 and CPAP, and if tolerated will go down to pressure support of 10 and possibly a pressure support of 8, and if he continues to tolerate may even receipt to extubating the patient. However patient has not been able to do so for the last few days, and I am not certain he would be able to wean and successfully extubated today. Patient is extremely frail, weak, he could barely raise his had off the pillow. And he is quite debilitated. Yesterday while weaning patient developed A. fib with RVR, and had to stop the weaning process. Chest x-ray continues to show significant bilateral consolidation and airspace disease. Labs today were reviewed his PTT is therapeutic. Basic metabolic profile is normal liver profile is relatively normal. WBC count is 7 hemoglobin is 11.2. Patient remains on enteral feeding utilizing his J-tube. Objective - Vital Signs Vital signs: Vital Signs Temp 98.1 F 02/28/20 12:00 Pulse 74 02/28/20 14:00 Resp 95 H 02/28/20 14:00 BP 117/76 02/28/20 13:00 Pulse Ox 94 L 02/28/20 14:00 Intake & Output 02/27/20 02/28/20 02/28/20 18:59 06:59 18:59 Intake Total 9793.998 2929.510 793.134 Output Total 2255 935 675 Balance -1170.216 801.510 118.134 Weight 65 kg Intake: IV 163.5 290.0 225 0.9 Normal Saline as 36 42.5 45 pressure bag @ 3mL/hr Piperacillin-Tazobactam 3 62.5 137.5 100 .375 gm In Sodium Chloride 0.9% 100 ml @ 25 mls/hr IVPB Q8HR EDER Rx# :[id number] Sodium Chloride 0.9% 1, 65 110 80 000 ml @ 10 mls/hr IV . Q24H [facility]ER Rx#:[id number] Intake, IV Titration 21.284 436.510 28.134 Amount Heparin Sod,Pork in 0.45% 350.150 NaCl 25,000 unit In 0.45 % NaCl 1 250ml.bag @ 12 UNITS/KG/HR 7.92 mls/hr IV .Q24H EDER Rx#: [id number] propofoL 1,000 mg In 21.284 86.360 28.134 Empty Bag 1 bag @ Titrate IV .Q0M EDER Rx#: [id number] Tube Feeding 810 920 480 Other 90 90 60 Output: Gastric Drainage 150 Urine 2255 935 525 Other: Voiding Method Indwelling Catheter Indwelling Catheter # Bowel Movements 1 ABP, PAP, CO, CI - Last Documented Arterial Blood Pressure 116/79 - Exam GENERAL EXAM: Revealed a 64-year-old white male, frail looking, chronically ill- looking, on mechanical ventilation, endotracheal tube and orogastric tubes are intact. HEAD: Normocephalic/atraumatic. EENT: PERRLA, EOMI, neck is supple, no neck masses, no JVD, left subclavian central line is noted CHEST: No chest wall deformity. Symmetrical expansion. LUNGS: Crackles and rhonchi at the bases. Symmetrical chest expansion. CVS: Irregular irregular rhythm, no S3 gallop. No murmur. ABDOMEN: Soft, nontender. No hepatosplenomegaly, normal bowel sounds, no guarding or rigidity. J tube is in place EXTREMITIES: No clubbing edema or cyanosis. MUSCULOSKELETAL: Normal muscle tone. Generalized weakness noted. SKIN: No rashes CENTRAL NERVOUS SYSTEM: Awake, follows simple instructions, generally weak. No gross focal neurologic deficit except for the weakness. - Labs CBC & Chem 7: 02/28/20 04:10 02/28/20 04:10 Labs: Abnormal Lab Results - Last 24 Hours (Table) 02/27/20 02/28/20 02/28/20 Range/Units 17:54 04:10 04:10 RBC 4.02 L (4.30-5.90) m/uL Hgb 11.2 L (13.0-17.5) gm/dL Hct 36.4 L (39.0-53.0) % MCHC 30.8 L (31.0-37.0) g/dL Lymphocytes # 0.7 L (1.0-4.8) k/uL APTT 43.4 H (22.0-30.0) sec ABG pH (7.35-7.45) ABG pO2 (83-108) mmHg ABG HCO3 (21-25) mmol/L ABG Total CO2 (19-24) mmol/L ABG O2 Saturation (94-97) % Sodium (137-145) mmol/L Glucose (74-99) mg/dL POC Glucose (mg/dL) 117 H (75-99) mg/dL Calcium (8.4-10.2) mg/dL ALT (4-49) U/L Total Protein (6.3-8.2) g/dL Albumin (3.5-5.0) g/dL 02/28/20 02/28/20 02/28/20 Range/Units 04:10 05:50 07:16 RBC (4.30-5.90) m/uL Hgb (13.0-17.5) gm/dL Hct (39.0-53.0) % MCHC (31.0-37.0) g/dL Lymphocytes # (1.0-4.8) k/uL APTT (22.0-30.0) sec ABG pH 7.49 H (7.35-7.45) ABG pO2 111 H (83-108) mmHg ABG HCO3 27 H (21-25) mmol/L ABG Total CO2 29 H (19-24) mmol/L ABG O2 Saturation 98.7 H (94-97) % Sodium 136 L (137-145) mmol/L Glucose 139 H (74-99) mg/dL POC Glucose (mg/dL) 112 H (75-99) mg/dL Calcium 8.1 L (8.4-10.2) mg/dL ALT 115 H (4-49) U/L Total Protein 5.9 L (6.3-8.2) g/dL Albumin 2.5 L (3.5-5.0) g/dL 02/28/20 02/28/20 Range/Units 10:05 12:06 RBC (4.30-5.90) m/uL Hgb (13.0-17.5) gm/dL Hct (39.0-53.0) % MCHC (31.0-37.0) g/dL Lymphocytes # (1.0-4.8) k/uL APTT 52.3 H (22.0-30.0) sec ABG pH (7.35-7.45) ABG pO2 (83-108) mmHg ABG HCO3 (21-25) mmol/L ABG Total CO2 (19-24) mmol/L ABG O2 Saturation (94-97) % Sodium (137-145) mmol/L Glucose (74-99) mg/dL POC Glucose (mg/dL) 110 H (75-99) mg/dL Calcium (8.4-10.2) mg/dL ALT (4-49) U/L Total Protein (6.3-8.2) g/dL Albumin (3.5-5.0) g/dL Assessment and Plan Assessment: Impression: Acute hypoxic respiratory failure secondary to aspiration pneumonia. Sputum has been positive for Klebsiella pneumoniae and the patient remains on Zosyn. Suspect some component of acute diastolic congestive heart failure, remains on diuretics. Patient presented initially with hypotension and hypovolemic shock as well as septic shock, given significant amount of fluids, and that may have contributed to this chronic diastolic congestive heart failure along with his atrial fibrillation and RVR. Atrial fibrillation with RVR, improved, patient is on amiodarone. Remains on IV heparin. History of esophageal cancer, patient is status post gastric pull through and being fed through a J-tube. History of seizure disorder. History of brain aneurysm and previous rupture with residual left-sided weakness. And history of seizures related to the aneurysm. Obstructive sleep apnea syndrome not compliant with CPAP. Non-anion gap metabolic acidosis on presentation secondary to sepsis improving/recovered. Medical debility, patient is wheelchair bound. Failure to wean from mechanical ventilation in spite of multiple trials of pressure support and CPAP. We'll try more weaning trials today, and if he continues to fail we will seriously consider tracheostomy. Attempts to place PICC line by interventional radiology, however was unsuccessful. Recommendation: Weaning trials to continue on a daily basis off propofol. In the meantime continue ventilatory support. Continue nutritional support, continue to use the J-tube for feeding. Continue GI and DVT prophylaxis. Continue heparin Failure to establish a PICC line.. Continue IV fluids at KVO. Continue diuretics. Continue Zosyn for aspiration pneumonia. Overall prognosis is extremely poor. We will continue to follow. Critical care time is 34minutes. Time with Patient: Greater than 30
[2020-02-28 15:37] LABS: ABG Base Excess 2.7 mmol/L; ABG HCO3 27 mmol/L (21-25); ABG Oxygen Saturation 98.9 % (94-97); ABG PCO2 38 mmHg (35-45); ABG PH 7.45 (7.35-7.45); ABG PO2 114 mmHg (83-108); ABG TCO2 28 mmol/L (19-24)
[2020-02-28 18:06] LABS: Glucose,Whole Blood 102 mg/dL (75-99)
[2020-02-28] MEDS: HEPARIN SOD,PORK IN 0.45% NACL 25,000 UNIT in 0.45% NACL 1 250ML.BAG IV SCH (18:40)
[2020-02-28 23:37] LABS: Glucose,Whole Blood 107 mg/dL (75-99)
[2020-02-29] MEDS: PIPERACILLIN-TAZOBACTAM 3.375 GM in SODIUM CHLORIDE 0.9% 100 ML IVPB SCH ×4 (00:05→23:33)
[2020-02-29] MEDS: METOCLOPRAMIDE 5 MG/ML 2 ML VIAL IVP SCH ×5 (00:05→23:26)
[2020-02-29] MEDS: INSULIN ASPART (NovoLOG) 100 UNIT/ML VIAL SQ SCH ×5 (00:06→23:32)
[2020-02-29 05:47] LABS: Basophils % (A) 0 %; Eosinophils # (A) 0.4 k/uL (0-0.7); Eosinophils % (A) 4 %; HCT 34.4 % (39.0-53.0); HGB 10.5 gm/dL (13.0-17.5); Hypochromasia Slight; Lymphocytes # (A) 1.1 k/uL (1.0-4.8); Lymphocytes % (A) 13 %; MCH 27.6 pg (25.0-35.0); MCHC 30.6 g/dL (31.0-37.0); MCV 90.3 fL (80.0-100.0); Mean Platelet Volume 8.3; Monocytes # (A) 0.4 k/uL (0-1.0); Monocytes % (A) 5 %; Neutrophils # (A) 6.4 k/uL (1.3-7.7); Neutrophils % (A) 76 %; Platelet Count 276 k/uL (150-450); RBC 3.81 m/uL (4.30-5.90); RDW 15.5 % (11.5-15.5); WBC 8.4 k/uL (3.8-10.6)
[2020-02-29 06:04] LABS: Glucose,Whole Blood 106 mg/dL (75-99)
[2020-02-29 06:09] LABS: African American GFR (CKD) >90 (>60 ml/min/1.73 sqM); Anion Gap 4 mmol/L; Blood Urea Nitrogen 21 mg/dL (9-20); Carbon Dioxide 27 mmol/L (22-30); Chloride 105 mmol/L (98-107); Glucose 105 mg/dL (74-99); Non-African American GFR(CKD) >90 (>60 ml/min/1.73 sqM); Potassium 3.8 mmol/L (3.5-5.1); Sodium 136 mmol/L (137-145)
[2020-02-29] MEDS ORDERED: POTASSIUM BICARBONATE/CIT AC 20 MEQ TABLET.EFF PO ONE (06:45)
[2020-02-29] MEDS: IPRATROPIUM-ALBUTEROL 3 ML NEB INHALATION SCH ×4 (07:11→19:29)
[2020-02-29] MEDS: AMIODARONE 200 MG TAB PO SCH ×2 (08:40→20:56)
[2020-02-29] MEDS: METOPROLOL TARTRATE 25 MG TAB PO SCH ×3 (08:40→22:10)
[2020-02-29] MEDS: NYSTATIN 100,000 UNIT/GM POWD 15 GM TOPICAL SCH ×2 (08:40→20:56)
[2020-02-29] MEDS: PANTOPRAZOLE 40 MG/10 ML VIAL IVP SCH (08:40)
[2020-02-29] MEDS ORDERED: METOPROLOL TARTRATE 25 MG TAB PO SCH (09:00)
--- NOTE | 2020-02-29 09:27 | XR ---
EXAMINATION TYPE: XR chest 1V DATE OF EXAM: 02/29/2020 COMPARISON: 02/28/2020 HISTORY: Shortness of breath TECHNIQUE: Single frontal view of the chest is obtained. FINDINGS: Diffuse bilateral pleural-parenchymal changes are stable. HUMAN SERVICES ASSISTANT shunt catheter noted in left- sided central line noted. No pneumothorax. Arthropathy of the shoulders. Heart size stable. Postopera tive changes noted. IMPRESSION: Diffuse pleural-parenchymal changes are stable. No significant interval change.
--- NOTE | 2020-02-29 10:07 | P.PN ---
Subjective This is a pleasant 64-year-old male past medical history significant for paroxysmal atrial fibrillation on long-term anticoagulation, esophageal cancer with J-tube in place, hypertension and brain aneurysm in the past. He follows in the office with Dr. Claros. He has been successfully extubated and is maintaining oxygen saturations with nasal cannula. Blood pressure 111/54 rate 75 afebrile. While in the room evaluating the patient his heart rates are fluctuating between 60 and 140. He again is going in and out of atrial fibrilla tion. He denies chest pain, dizziness or palpitations. He is supposed to undergo PICC line placement today. Laboratory data reviewed, WBC 8.4, hemoglobin 10.5, platelets 276, sodium 136, potassium 3.8, creatinine 0.64. Chest x-ray this morning reveals diffuse pleural parenchymal changes stable from previous study. Currently maintained on amiodarone 200 mg twice a day, heparin infusion, metoprolol 25 mg twice a day and IV antibiotics. GENERAL: Comfortable in no acute distress NECK: Supple without JVD or thyromegaly. LUNGS: Respiration equal and unlabored. Diminished bilaterally. HEART: Regular rate and rhythm without murmurs, rubs or gallops. S1 and S2 heard. EXTREMITIES: Normal range of motion, no edema noted. No clubbing or cyanosis. Peripheral pulses intact. ASSESSMENT Paroxysmal atrial fibrillation on Eliquis for anticoagulation currently maintaining sinus mechanism Acute hypoxic respiratory failure requiring mechanical ventilation Asystole arrest Aspiration pneumonia Lactic acidosis Leukocytosis Acute systolic heart failure s/p cardiac arrest History of esophageal cancer status post J-tube placement Hypertension History of brain aneurysm with [employer] shunt Non-sustained ventricular tachycardia. PLAN Continue heparin infusion as he is going for PICC line placement today. Resume Coumadin when okay with the steel tier. Increase metoprolol to 25 mg 3 times a day, continue to watch heart rate and blood pressure closely. Continue amiodarone as currently ordered. Nurse Practitioner note has been reviewed, I agree with a documented findings and plan of care. Patient was seen and examined. Objective - Vital Signs Vital signs: Vital Signs Temp 97.8 F 02/29/20 04:00 Pulse 75 02/29/20 07:22 Resp 21 02/29/20 07:00 BP 130/87 02/28/20 18:00 Pulse Ox 94 L 02/29/20 07:13 Intake & Output 02/28/20 02/29/20 02/29/20 18:59 06:59 18:59 Intake Total 2536.302 2342 76 Output Total 960 822 85 Balance 310.212 437 -9 Weight 65.5 kg Intake: IV 289 329 16 0.9 Normal Saline as 69 69 6 pressure bag @ 3mL/hr Piperacillin-Tazobactam 3 100 200 .375 gm In Sodium Chloride 0.9% 100 ml @ 25 mls/hr IVPB Q8HR [facility] Rx# :[id number] Sodium Chloride 0.9% 1, 120 60 10 000 ml @ 10 mls/hr IV . Q24H [facility] Rx#:[id number] Intake, IV Titration 171.212 Amount Heparin Sod,Pork in 0.45% 143.078 NaCl 25,000 unit In 0.45 % NaCl 1 250ml.bag @ 12 UNITS/KG/HR 7.92 mls/hr IV .Q24H [facility] Rx#: [id number] propofoL 1,000 mg In 28.134 Empty Bag 1 bag @ Titrate IV .Q0M [facility]ER Rx#: [id number] Tube Feeding 720 840 60 Other 90 90 Output: Gastric Drainage 200 Urine 760 822 85 Other: Voiding Method Indwelling Catheter Indwelling Catheter # Bowel Movements 1 1 ABP, PAP, CO, CI - Last Documented Arterial Blood Pressure 111/54 - Labs CBC & Chem 7: 02/29/20 04:40 02/29/20 04:40 Labs: Abnormal Lab Results - Last 24 Hours (Table) 02/28/20 02/28/20 02/28/20 Range/Units 10:05 12:06 15:13 RBC (4.30-5.90) m/uL Hgb (13.0-17.5) gm/dL Hct (39.0-53.0) % MCHC (31.0-37.0) g/dL APTT 52.3 H (22.0-30.0) sec ABG pO2 114 H (83-108) mmHg ABG HCO3 27 H (21-25) mmol/L ABG Total CO2 28 H (19-24) mmol/L ABG O2 Saturation 98.9 H (94-97) % Sodium (137-145) mmol/L BUN (9-20) mg/dL Creatinine (0.66-1.25) mg/dL Glucose (74-99) mg/dL POC Glucose (mg/dL) 110 H (75-99) mg/dL Calcium (8.4-10.2) mg/dL 02/28/20 02/28/20 02/29/20 Range/Units 18:05 23:35 04:40 RBC 3.81 L (4.30-5.90) m/uL Hgb 10.5 L (13.0-17.5) gm/dL Hct 34.4 L (39.0-53.0) % MCHC 30.6 L (31.0-37.0) g/dL APTT (22.0-30.0) sec ABG pO2 (83-108) mmHg ABG HCO3 (21-25) mmol/L ABG Total CO2 (19-24) mmol/L ABG O2 Saturation (94-97) % Sodium (137-145) mmol/L BUN (9-20) mg/dL Creatinine (0.66-1.25) mg/dL Glucose (74-99) mg/dL POC Glucose (mg/dL) 102 H 107 H (75-99) mg/dL Calcium (8.4-10.2) mg/dL 02/29/20 02/29/20 02/29/20 Range/Units 04:40 04:40 06:02 RBC (4.30-5.90) m/uL Hgb (13.0-17.5) gm/dL Hct (39.0-53.0) % MCHC (31.0-37.0) g/dL APTT 49.4 H (22.0-30.0) sec ABG pO2 (83-108) mmHg ABG HCO3 (21-25) mmol/L ABG Total CO2 (19-24) mmol/L ABG O2 Saturation (94-97) % Sodium 136 L (137-145) mmol/L BUN 21 H (9-20) mg/dL Creatinine 0.64 L (0.66-1.25) mg/dL Glucose 105 H (74-99) mg/dL POC Glucose (mg/dL) 106 H (75-99) mg/dL Calcium 8.0 L (8.4-10.2) mg/dL
[2020-02-29] MEDS: NOREPINEPHRINE 32 MG in SODIUM CHLORIDE 0.9% 218 ML IV SCH (12:04)
[2020-02-29] MEDS: LIDOCAINE 1% INJ 10MG/ML (20 ML MDV) SQ ONE ×2 (12:26→12:31)
--- NOTE | 2020-02-29 12:57 | XR ---
EXAMINATION TYPE: XR chest 1V portable DATE OF EXAM: 02/29/2020 COMPARISON: 02/29/2020 HISTORY: PICC line placement TECHNIQUE: Single frontal view of the chest is obtained. FINDINGS: Diffuse pleural-parenchymal changes are stable. Left-sided PICC line seen with tip at the level of the SVC. Left-sided central line also noted. CHEMICAL PROCESS ENGINEER shunt catheter seen. Lung apices not include d. Heart size stable. Surgical clips in the abdomen. Hypertrophic change of the spine. IMPRESSION: 1. Stable diffuse pleural parenchymal changes. PICC line appears in good position.
[2020-02-29 13:01] LABS: Glucose,Whole Blood 122 mg/dL (75-99)
[2020-02-29] MEDS: SODIUM CHLORIDE 0.9% 1,000 ML IV SCH (13:05)
--- NOTE | 2020-02-29 13:08 | P.PN ---
Subjective Progress Note Date: 02/29/20 Principal diagnosis: Acute hypoxic respiratory failure secondary to aspiration pneumonia. This is a 64-year-old white male patient of Dr. Claude Deluna that was admitted through the emergency department on 02/11/2020 when he came in for evaluation of shortness of breath, hypoxemia. Patient has a known history of esophageal cancer status post chemotherapy and NG tube placement, has a known history of COPD and CHF. Patient was started on empiric antibiotics in the form of Zosyn, nebulized bronchodilators, and diuretics, did require high flow oxygen per Airvo, which was discontinued yesterday, patient is currently on 6 L of oxygen per high flow nasal cannula with a pulse ox of 93-95%, his tube feedings were held yesterday related to some leaking around the bolster, surgical services were consulted and Dr. Styles adjusted the bolster, and tube feedings were resumed today, with TwoCal HN currently at 10 ML per hour. Of note previously patient was receiving tube feedings and consuming some nausea fluids by mouth. He is currently strict nothing by mouth, and receiving all of his nutrition via his J-tube. He is sounding much less congested today, bronchospastic, breathing easier, more comfortably, he sitting up in the chair. His vital signs are stable, his been afebrile, hemodynamically stable, 0.9 normal saline infusing at a rate of 20 ML per hour, yesterday he received a dose of Lasix, and he produces 2.8 L and urine output, he is -1.4 L over last 24 hours, indwelling catheter is in place. On admission patient was in A. fib with RVR, he is currently in sinus mechanism, he is on oral amiodarone and Eliquis for anticoagulation, cardiology services are following. Today's chest x-ray has been reviewed, showing stable diffuse pleural parenchymal disease related to aspiration pneumonia. Today's labs have been reviewed, showing white blood cell, 10.7, hemoglobin of 12.8, sodium is 140, potassium is 3.4, the rest of electrolytes were within normal limits, BUN is 18 creatinine 0.58. All microbiology has shown no growth. He is on Zosyn for antibiotic coverage. On 02/23/2020, the patient is being seen for a follow-up. This morning the patient's upper quadrant 30 mg per KG per minute. I was told by nursing staff the patient was given a sedation holiday yesterday following that the patient aroused and he was able to follow some commands. In general, the patient is doing well. He is hemodynamically stable. He was taken gradually off levo fed and the norepinephrine infusion is currently running at 0.1 g per KG per minute. He is also on normal saline at the rate of 75 mL an hour. Doing well. No specific issues overnight. On a mechanical ventilator, he remains on assist control mode at the rate of 14 with a tidal volume of 450 and FiO2 of 50% with a PEEP of 5. The patient's blood gases from today showed a pH of 7.51 with a pCO2 of 32 and pO2 of 11. Chest x-ray shows increased interstitial markings bilaterally along with a component of pulmonary edema in addition to gastric pull-through and lower lobe consolidations and effusions that are present on previous evaluations. I feel that the patient is going into some degree of fluid overload. The neck fluid balance is been +2.8 L over the past 24 hours. The sputum culture was positive for Klebsiella. The patient is afebrile. No other issues for now. J-tube feeding will be started today. NG tube in place and output has been only 150 mL over the past 12 hours. The patient is covered with Zosyn and vancomycin and the vancomycin will be discontinued. On 02/24/2020, the patient is being seen for a follow-up. Patient is getting another sedation holiday as the patient may be able to wean off the mechanical ventilator. He is on a minimal dose of propofol for now. He is on a assist control mode of ventilation at the rate of 14 with a tidal volume of 450 and FiO2 of 35% with a PEEP of 5. PH is at 7.48 with a pCO2 of 40 and pO2 148. IV fluids at KVO. The patient remains on IV heparin. The patient remains on levo fed at 0.06 units per KG per minute. He is receiving enteral feeding with protein high-calorie at the rate of 50 mL an hour. NG tube is in place and output is minimal at this point in time. The patient was given Lasix yesterday 40 mg IV push and the neck fluid balance has been -2.7 L. Chest x-ray showing some improvement in the volume status. ET tube is in a good location. NG tube in good location. Further diuresis may be of benefit. No abdominal distention. Adequate pulses in all 4 extremities. Arousable. He is in the process of getting a sedation holiday to be checked for his weaning parameters. Patient was reevaluated today on 02/25/20, remains in the ICU, remains intubated and mechanically ventilated. His ventilator settings are assist control rate of 14, volume control plus with tidal volume is 450 FiO2 35% PEEP of 5. ABG this a.m. showed a pO2 of 94 pCO2 of 37 pH of 7.50. Patient was initially admitted on 02/10 and he was intubated on 02/18 when the rapid response team responded to a CODE BLUE. Patient is on propofol at 10 mcg/kg/m, he is also on heparin, and not requiring any pressors. Over the last few days, patient had multiple trials of spontaneous breathing trials and definitely some of them were done over the weekend, however the patient lasted at the most 455 minutes. Remains on tube feeding at 30 MLS per hour. Chest x-ray today showed evidence of bilateral pleural effusions, and I am recommending ultrasound of the chest, will likely consider thoracentesis on this patient if the fluid is large enough to be drained safely. Ultrasound showed small pockets not safe to drain at this time. The left side is only is 0.6 cm pockets and the right side is only 1.8 cm pocket. All labs were reviewed renal profile is normal. Electrolytes are normal. PTT is therapeutic at 47.6. WBC count is 9.2 hemoglobin is 10 Patient was reevaluated today on 02/26/20, remains in the ICU, intubated and mechanically ventilated. Patient is on assist control rate of 14 volume control plus of 450 FiO2 is 35% PEEP is 5 ABG showed a pO2 of 110 pCO2 of 37 pH of 7.48. Patient remains on heparin drip, propofol drip at 10 mcg/kg/m, not requiring any pressors. He is on tube feedings via J-tube. Patient was intubated on 02/18, and daily trials for weaning the patient has failed. Today I will try again with a pressure support of 14 and CPAP. I was markings the patient for almost an hour while I was in the ICU, and he seemed to tolerate that mode of weaning fairly well, patient was moving tidal volumes above 500 mL, and his respiratory rate was in the low 20s. Patient is arousable, follows simple instructions, but seems to be very swollen and generally weak. Chest x-ray shows unchanged bibasilar airspace opacities and bilateral pleural effusion, ultrasound of the chest failed to show significant effusion to consider thoracentesis. Reevaluated today on 02/27/20, patient remains in the ICU, on mechanical ventilation, ventilator settings are assist control rate of 14 tidal volume is 450 FiO2 is 35% and PEEP of 5. ABG this morning showed a pO2 of 111 pCO2 of 36 pH of 7.48. Patient is on heparin, he is hemodynamically stable, discontinued the prevent this morning, and gave the patient a weaning trial, utilizes pressure support of 12 and CPAP, however after 1 hour patient developed atrial fibrillation with RVR, and had to be placed back on assist control mode of mechanical ventilation. Chest x-ray continues to show significant consolidation in the lower lobes. Bilaterally. Nasogastric tube was noted to be high in the esophagus, and advanced down. Basic metabolic profile is normal. Renal profile is normal. WBC count is 5.7 hemoglobin is 10.5. Patient remains empirically on antibiotics/Zosyn for aspiration pneumonia. And we have been trying to wean the patient almost on a daily basis, yesterday he lasted about 5 hours on pressure support of 14 and CPAP. Today I have recommended surgical evaluation patient is definitely failure to wean, and I believe the patient will require tracheostomy. Patient was reevaluated today on 02/28/20, remains in the ICU, intubated and mechanically ventilated. His ventilator settings are assist control rate of 14 tidal volume is 450 FiO2 is 35% PEEP of 5. ABG this morning showed a pO2 of 111 pCO2 of 36 pH of 7.49. Patient remains on propofol and heparin drip. He is hemodynamically stable, not requiring any pressors. However for the last 4 days I have been attempting to wean the patient, and has been not successful so far. Today I plan to try again on the pressure support of 12 and CPAP, and if tolerated will go down to pressure support of 10 and possibly a pressure support of 8, and if he continues to tolerate may even receipt to extubating the patient. However patient has not been able to do so for the last few days, and I am not certain he would be able to wean and successfully extubated today. Patient is extremely frail, weak, he could barely raise his had off the pillow. And he is quite debilitated. Yesterday while weaning patient developed A. fib with RVR, and had to stop the weaning process. Chest x-ray continues to show significant bilateral consolidation and airspace disease. Labs today were reviewed his PTT is therapeutic. Basic metabolic profile is normal liver profile is relatively normal. WBC count is 7 hemoglobin is 11.2. Patient remains on enteral feeding utilizing his J-tube. Reevaluated today on 02/29/20, patient was extubated yesterday successfully, after he was placed on a pressure support of 8 and CPAP for almost 4 hours. Patient is now on 3 L oxygen with O2 saturation of 94%. He remains on heparin for his atrial fibrillation. Continues to have a left subclavian central line which I would like to discontinue and hopefully get a PICC line in this patient. Apparently interventional radiology tried once and couldn't establish a PICC line. Patient was extubated on 02/27 successfully, he continues to receive Zosyn for his Klebsiella pneumonia/aspiration pneumonia. He was initially extubated to a BiPAP, and has been on nasal cannula overnight. He is hemodynam ically stable. Electrolytes and renal profile are normal. CBC is relatively normal hemoglobin is 10.5 PTT is therapeutic at 49.4. Objective - Vital Signs Vital signs: Vital Signs Temp 97.6 F 02/29/20 08:00 Pulse 75 02/29/20 11:03 Resp 21 02/29/20 11:00 BP 130/87 02/28/20 18:00 Pulse Ox 96 02/29/20 11:00 Intake & Output 02/28/20 02/29/20 02/29/20 18:59 06:59 18:59 Intake Total 8449.306 5982 616 Output Total 960 822 585 Balance 310.212 437 31 Weight 65.5 kg 65.5 kg Intake: IV 289 329 196 0.9 Normal Saline as 69 69 36 pressure bag @ 3mL/hr Piperacillin-Tazobactam 3 100 200 100 .375 gm In Sodium Chloride 0.9% 100 ml @ 25 mls/hr IVPB Q8HR [facility] Rx# :[id number] Sodium Chloride 0.9% 1, 120 60 60 000 ml @ 10 mls/hr IV . Q24H [facility] Rx#:[id number] Intake, IV Titration 171.212 Amount Heparin Sod,Pork in 0.45% 143.078 NaCl 25,000 unit In 0.45 % NaCl 1 250ml.bag @ 12 UNITS/KG/HR 7.92 mls/hr IV .Q24H [facility] Rx#: [id number] propofoL 1,000 mg In 28.134 Empty Bag 1 bag @ Titrate IV .Q0M [facility] Rx#: [id number] Tube Feeding 720 840 360 Other 90 90 60 Output: Gastric Drainage 200 Urine 760 822 585 Other: Voiding Method Indwelling Catheter Indwelling Catheter Indwelling Catheter # Bowel Movements 1 1 1 ABP, PAP, CO, CI - Last Documented Arterial Blood Pressure 131/64 - Exam GENERAL EXAM: Revealed a 64-year-old white male, frail looking, on nasal cannula. Awake, and in no distress.. HEAD: Normocephalic/atraumatic. EENT: PERRLA, EOMI, neck is supple, no neck masses, no JVD, left subclavian central line is noted this was from 02/19. CHEST: No chest wall deformity. Symmetrical expansion. LUNGS: Symmetrical chest expansion, crackles at the bases.. CVS: Irregular irregular rhythm, no S3 gallop. No murmur. ABDOMEN: Soft, nontender. No hepatosplenomegaly, normal bowel sounds, no guarding or rigidity. J tube is in place EXTREMITIES: No clubbing edema or cyanosis. MUSCULOSKELETAL: Normal muscle tone. Generalized weakness noted. SKIN: No rashes CENTRAL NERVOUS SYSTEM: Awake alert oriented 3, generally weak, otherwise no gross focal deficits. - Labs CBC & Chem 7: 02/29/20 04:40 02/29/20 04:40 Labs: Abnormal Lab Results - Last 24 Hours (Table) 02/28/20 02/28/20 02/28/20 Range/Units 15:13 18:05 23:35 RBC (4.30-5.90) m/uL Hgb (13.0-17.5) gm/dL Hct (39.0-53.0) % MCHC (31.0-37.0) g/dL APTT (22.0-30.0) sec ABG pO2 114 H (83-108) mmHg ABG HCO3 27 H (21-25) mmol/L ABG Total CO2 28 H (19-24) mmol/L ABG O2 Saturation 98.9 H (94-97) % Sodium (137-145) mmol/L BUN (9-20) mg/dL Creatinine (0.66-1.25) mg/dL Glucose (74-99) mg/dL POC Glucose (mg/dL) 102 H 107 H (75-99) mg/dL Calcium (8.4-10.2) mg/dL 02/29/20 02/29/20 02/29/20 Range/Units 04:40 04:40 04:40 RBC 3.81 L (4.30-5.90) m/uL Hgb 10.5 L (13.0-17.5) gm/dL Hct 34.4 L (39.0-53.0) % MCHC 30.6 L (31.0-37.0) g/dL APTT 49.4 H (22.0-30.0) sec ABG pO2 (83-108) mmHg ABG HCO3 (21-25) mmol/L ABG Total CO2 (19-24) mmol/L ABG O2 Saturation (94-97) % Sodium 136 L (137-145) mmol/L BUN 21 H (9-20) mg/dL Creatinine 0.64 L (0.66-1.25) mg/dL Glucose 105 H (74-99) mg/dL POC Glucose (mg/dL) (75-99) mg/dL Calcium 8.0 L (8.4-10.2) mg/dL 02/29/20 02/29/20 Range/Units 06:02 13:00 RBC (4.30-5.90) m/uL Hgb (13.0-17.5) gm/dL Hct (39.0-53.0) % MCHC (31.0-37.0) g/dL APTT (22.0-30.0) sec ABG pO2 (83-108) mmHg ABG HCO3 (21-25) mmol/L ABG Total CO2 (19-24) mmol/L ABG O2 Saturation (94-97) % Sodium (137-145) mmol/L BUN (9-20) mg/dL Creatinine (0.66-1.25) mg/dL Glucose (74-99) mg/dL POC Glucose (mg/dL) 106 H 122 H (75-99) mg/dL Calcium (8.4-10.2) mg/dL Assessment and Plan Assessment: Impression: Acute hypoxic respiratory failure secondary to aspiration pneumonia. Sputum has been positive for Klebsiella pneumoniae and the patient remains on Zosyn. Suspect some component of acute diastolic congestive heart failure, remains on diuretics. Atrial fibrillation with RVR, improved, patient is on amiodarone. Remains on IV heparin. History of esophageal cancer, patient is status post gastric pull through and being fed through a J-tube. History of seizure disorder. History of brain aneurysm and previous rupture with residual left-sided weakness. And history of seizures related to the aneurysm. Obstructive sleep apnea syndrome not compliant with CPAP. Non-anion gap metabolic acidosis on presentation secondary to sepsis improving/recovered. Medical debility, patient is wheelchair bound. Attempts to place PICC line by interventional radiology, however was unsuccessful. We'll reconsult interventional radiology again to try PICC line in the left arm. Successful extubation on 02/28/20, presently maintained on nasal cannula. Recommendation: Continue to monitor the patient in the ICU for for at least 24 hours. Continue GI and DVT prophylaxis. Continue heparin , will likely transition to Eliquis. Failure to establish a PICC line.. We will try again otherwise we will arrange for a midline. And hopefully discontinue the central line. Continue IV fluids at KVO. Continue diuretics. Continue Zosyn for aspiration pneumonia. Will follow. Time with Patient: Less than 30
--- NOTE | 2020-02-29 13:11 | IR ---
PICC LINE PLACEMENT: HISTORY: TPN PROCEDURE: Ultrasound guidance of PICC line placement. TIRE FABRICATOR: Dr. Wilkins. COMPLICATIONS: None ANESTHESIA: 1. 1% Lidocaine locally. FINDINGS/TECHNIQUE: The procedure was explained to the patient. The risks, complications, benefits and alternatives were discussed and any questions were answered. Informed consent was obtained. The patient was placed supine on the fluoroscopic table and prepped and draped in the usual sterile fash ion. Utilizing a 21 gauge needle and sonographic guidance, access in the left brachial vein was ach ieved and there is placement of a 0.018 guidewire. The vein is patent. A 5-F. sheath was placed ove r the guidewire. The guidewire and dilator were removed and a 5-F. Double lumen PICC line was placed through the sheath with the chest x-ray confirming the tip at the level of the SVC. The sheath was removed, the catheter was flushed and sutured into position. The patient was stable throughout the p rocedure and remained stable upon discharge from the Department of Radiology. The vein puncture was patent under ultrasound. A arambula scale image was obtained to document patency of the vein punctured. All elements of the maximal barrier technique were utilized. IMPRESSION: 1. Successful PICC line placement under ultrasound performed bedside within the ICU.
[2020-02-29] MEDS ORDERED: DEXTROSE 50% SYRINGE 50 ML IVP ONE (13:38)
--- NOTE | 2020-02-29 14:32 | P.PN ---
Subjective Progress Note Date: 02/29/20 CHIEF COMPLAINT: respiratory failure HISTORY OF PRESENT ILLNESS: Patient evaluated for possible tracheostomy today. However, patient was successfully extubated this morning. No he is tolerating nasal cannula. No tracheostomy as needed. An initial consult was placed regarding leaking around the jejunostomy tube. Dr. Suarez fixed J-tube at bedside. No further leaking reported per nursing staff. Patient is at goal for his tube feedings. And is currently nothing by mouth. He is afebrile. WBC 8.4. PHYSICAL EXAM: VITAL SIGNS: Reviewed. GENERAL: Well-developed in no acute distress. HEENT: No sclera icterus. Extraocular movements grossly intact. Moist buccal mucosa. Head is atraumatic, normocephalic. ABDOMEN: Soft. Nondistended. Nontender. J-tube site clean dry and intact NEUROLOGIC: Alert and oriented. Cranial nerves II through XII grossly intact. ASSESSMENT: 1. Acute hypoxic respiratory failure secondary to aspiration pneumonia. Patient has been successfully extubated 2. History of esophageal cancer 3. Leaking at jejunostomy tube site. Now corrected. Tolerating tube feeds PLAN: -Tracheostomy canceled for today. Patient successfully extubated Physician Filleter note has been reviewed by physician. Signing provider agrees with the documented findings, assessment, and plan of care. Objective - Vital Signs Vital signs: Vital Signs Temp 97.6 F 02/29/20 12:00 Pulse 44 L 02/29/20 13:00 Resp 25 H 02/29/20 13:00 BP 130/87 02/28/20 18:00 Pulse Ox 97 02/29/20 13:00 Intake & Output 02/28/20 02/29/20 02/29/20 18:59 06:59 18:59 Intake Total 8874.562 2119 689 Output Total 960 822 675 Balance 310.212 437 14 Weight 65.5 kg 65.5 kg Intake: IV 289 329 209 0.9 Normal Saline as 69 69 39 pressure bag @ 3mL/hr Piperacillin-Tazobactam 3 100 200 100 .375 gm In Sodium Chloride 0.9% 100 ml @ 25 mls/hr IVPB Q8HR [facility] Rx# :[id number] Sodium Chloride 0.9% 1, 120 60 70 000 ml @ 10 mls/hr IV . Q24H [facility] Rx#:[id number] Intake, IV Titration 171.212 Amount Heparin Sod,Pork in 0.45% 143.078 NaCl 25,000 unit In 0.45 % NaCl 1 250ml.bag @ 12 UNITS/KG/HR 7.92 mls/hr IV .Q24H [facility] Rx#: [id number] propofoL 1,000 mg In 28.134 Empty Bag 1 bag @ Titrate IV .Q0M [facility] Rx#: [id number] Tube Feeding 720 840 420 Other 90 90 60 Output: Gastric Drainage 200 Urine 760 822 675 Other: Voiding Method Indwelling Catheter Indwelling Catheter Indwelling Catheter # Bowel Movements 1 1 1 ABP, PAP, CO, CI - Last Documented Arterial Blood Pressure 149/113 - Labs CBC & Chem 7: 02/29/20 04:40 02/29/20 04:40 Labs: Abnormal Lab Results - Last 24 Hours (Table) 02/28/20 02/28/20 02/28/20 Range/Units 15:13 18:05 23:35 RBC (4.30-5.90) m/uL Hgb (13.0-17.5) gm/dL Hct (39.0-53.0) % MCHC (31.0-37.0) g/dL APTT (22.0-30.0) sec ABG pO2 114 H (83-108) mmHg ABG HCO3 27 H (21-25) mmol/L ABG Total CO2 28 H (19-24) mmol/L ABG O2 Saturation 98.9 H (94-97) % Sodium (137-145) mmol/L BUN (9-20) mg/dL Creatinine (0.66-1.25) mg/dL Glucose (74-99) mg/dL POC Glucose (mg/dL) 102 H 107 H (75-99) mg/dL Calcium (8.4-10.2) mg/dL 02/29/20 02/29/20 02/29/20 Range/Units 04:40 04:40 04:40 RBC 3.81 L (4.30-5.90) m/uL Hgb 10.5 L (13.0-17.5) gm/dL Hct 34.4 L (39.0-53.0) % MCHC 30.6 L (31.0-37.0) g/dL APTT 49.4 H (22.0-30.0) sec ABG pO2 (83-108) mmHg ABG HCO3 (21-25) mmol/L ABG Total CO2 (19-24) mmol/L ABG O2 Saturation (94-97) % Sodium 136 L (137-145) mmol/L BUN 21 H (9-20) mg/dL Creatinine 0.64 L (0.66-1.25) mg/dL Glucose 105 H (74-99) mg/dL POC Glucose (mg/dL) (75-99) mg/dL Calcium 8.0 L (8.4-10.2) mg/dL 02/29/20 02/29/20 Range/Units 06:02 13:00 RBC (4.30-5.90) m/uL Hgb (13.0-17.5) gm/dL Hct (39.0-53.0) % MCHC (31.0-37.0) g/dL APTT (22.0-30.0) sec ABG pO2 (83-108) mmHg ABG HCO3 (21-25) mmol/L ABG Total CO2 (19-24) mmol/L ABG O2 Saturation (94-97) % Sodium (137-145) mmol/L BUN (9-20) mg/dL Creatinine (0.66-1.25) mg/dL Glucose (74-99) mg/dL POC Glucose (mg/dL) 106 H 122 H (75-99) mg/dL Calcium (8.4-10.2) mg/dL
[2020-02-29] MEDS: HEPARIN SOD,PORK IN 0.45% NACL 25,000 UNIT in 0.45% NACL 1 250ML.BAG IV SCH (17:11)
--- NOTE | 2020-02-29 17:20 | P.PN ---
Subjective Progress Note Date: 02/29/20 Principal diagnosis: Acute hypoxic respiratory failure probably secondary to pneumonia 64-year-old the male admitted for pneumonia bilateral, predominantly in the right lower lobes. There is a concern about aspiration patient has been vomiting. Patient does take a modified diet by mouth at home does have a PEG tube in place. Patient the antibiotics were changed to Zosyn which is appropriate. Patient went into respiratory distress on some requirements have gone up because of which patient was transferred to ICU later in the day patient started having A. fib with rapid ventricular rate because of which patient was started on Cardizem and cardiology was consulted. I'm also consulting speech therapy because of his swallowing issues to assess if her appropriate for the patient to be continued on modified diet by mouth. 02/29/2020 Patient is seen and evaluated in ICU sitting up in bedside chair; nursing staff at bedside; patient was successfully extubated yesterday and hasn't needed BiPAP support; SpO2 of 94% on 3 L Vital signs are reviewed and are stable; lab review shows blood work unremarkable; PTT of 49.4; hemoglobin at 10.5 Patient remains on IV heparin for atrial fibrillation Patient remains on IV Zosyn for his pneumonia Plan is to monitor patient in ICU for another 24 hours and continue heparin until safely transitioned to Eliquis Objective - Vital Signs Vital signs: Vital Signs Temp 97.6 F 02/29/20 12:00 Pulse 54 L 02/29/20 15:48 Resp 25 H 02/29/20 15:00 BP 130/87 02/28/20 18:00 Pulse Ox 97 02/29/20 15:30 Intake & Output 02/28/20 02/29/20 02/29/20 18:59 06:59 18:59 Intake Total 2443.836 7796 835 Output Total 960 822 765 Balance 310.212 437 70 Weight 65.5 kg 65.5 kg Intake: IV 289 329 235 0.9 Normal Saline as 69 69 45 pressure bag @ 3mL/hr Piperacillin-Tazobactam 3 100 200 100 .375 gm In Sodium Chloride 0.9% 100 ml @ 25 mls/hr IVPB Q8HR [facility] Rx# :[id number] Sodium Chloride 0.9% 1, 120 60 90 000 ml @ 10 mls/hr IV . Q24H [facility] Rx#:[id number] Intake, IV Titration 171.212 Amount Heparin Sod,Pork in 0.45% 143.078 NaCl 25,000 unit In 0.45 % NaCl 1 250ml.bag @ 12 UNITS/KG/HR 7.92 mls/hr IV .Q24H [facility] Rx#: [id number] propofoL 1,000 mg In 28.134 Empty Bag 1 bag @ Titrate IV .Q0M [facility]ER Rx#: [id number] Tube Feeding 720 840 540 Other 90 90 60 Output: Gastric Drainage 200 Urine 760 822 765 Other: Voiding Method Indwelling Catheter Indwelling Catheter Indwelling Catheter # Bowel Movements 1 1 1 ABP, PAP, CO, CI - Last Documented Arterial Blood Pressure 135/63 - Exam GENERAL: Patient is intubated, off sedation and is awake HEENT: Pupils are round and equally reacting to light. EOMI. No scleral icterus. No conjunctival pallor. Normocephalic, atraumatic. No pharyngeal erythema. No thyromegaly. CARDIOVASCULAR: S1 and S2 present. No murmurs, rubs, or gallops. PULMONARY: Diffuse bilateral rhonchi and crackles bibasilar ABDOMEN: Soft, nontender, nondistended, normoactive bowel sounds. No palpable organomegaly. MUSCULOSKELETAL: No joint swelling or deformity. EXTREMITIES: No cyanosis, clubbing, or pedal edema. NEUROLOGICAL: Patient is awake and nodding head off sedation presently SKIN: No rashes. - Labs CBC & Chem 7: 02/29/20 04:40 02/29/20 04:40 Labs: Abnormal Lab Results - Last 24 Hours (Table) 02/28/20 02/28/20 02/29/20 Range/Units 18:05 23:35 04:40 RBC 3.81 L (4.30-5.90) m/uL Hgb 10.5 L (13.0-17.5) gm/dL Hct 34.4 L (39.0-53.0) % MCHC 30.6 L (31.0-37.0) g/dL APTT (22.0-30.0) sec Sodium (137-145) mmol/L BUN (9-20) mg/dL Creatinine (0.66-1.25) mg/dL Glucose (74-99) mg/dL POC Glucose (mg/dL) 102 H 107 H (75-99) mg/dL Calcium (8.4-10.2) mg/dL 02/29/20 02/29/20 02/29/20 Range/Units 04:40 04:40 06:02 RBC (4.30-5.90) m/uL Hgb (13.0-17.5) gm/dL Hct (39.0-53.0) % MCHC (31.0-37.0) g/dL APTT 49.4 H (22.0-30.0) sec Sodium 136 L (137-145) mmol/L BUN 21 H (9-20) mg/dL Creatinine 0.64 L (0.66-1.25) mg/dL Glucose 105 H (74-99) mg/dL POC Glucose (mg/dL) 106 H (75-99) mg/dL Calcium 8.0 L (8.4-10.2) mg/dL 02/29/20 Range/Units 13:00 RBC (4.30-5.90) m/uL Hgb (13.0-17.5) gm/dL Hct (39.0-53.0) % MCHC (31.0-37.0) g/dL APTT (22.0-30.0) sec Sodium (137-145) mmol/L BUN (9-20) mg/dL Creatinine (0.66-1.25) mg/dL Glucose (74-99) mg/dL POC Glucose (mg/dL) 122 H (75-99) mg/dL Calcium (8.4-10.2) mg/dL Assessment and Plan Assessment: -Acute hypoxic respiratory failure secondary to pneumonia predominantly in the right. patient does have pleural effusions on both sides. Patient is on Zosyn at this time there is a concern for aspiration. Patient is presently intubated on assist-control ventilation please refer to pulmonology documentation for vent settings. patient is tolerating BiPAP very well . -Septic shock: Shock resolved patient is off norepinephrine -Paraxysmal Atrial fibrillation with rapid ventricular rate Patient is being switched to Eliquis. Patient is presently on amiodarone, off Cardizem. -gastroesophageal reflux disease, patient said J-tube feedings were reinitiated receiving tube feedings at [facility] and patient has nosignificant output from the OG tube -Hypertension -benign prostatic hypertrophy -History of renal cancer and esophageal cancer with dysphagia and a J-tube . -History of cerebral aneurysm. -KAROL His overall prognosis is extremely poor
[2020-02-29 19:21] LABS: Glucose,Whole Blood 120 mg/dL (75-99)
[2020-02-29 23:30] LABS: Glucose,Whole Blood 100 mg/dL (75-99)
[2020-03-01 04:35] LABS: HCT 32.7 % (39.0-53.0); HGB 10.3 gm/dL (13.0-17.5); Hypochromasia Slight; MCH 28.5 pg (25.0-35.0); MCHC 31.5 g/dL (31.0-37.0); MCV 90.4 fL (80.0-100.0); Mean Platelet Volume 8.4; Platelet Count 263 k/uL (150-450); RBC 3.62 m/uL (4.30-5.90); RDW 15.7 % (11.5-15.5); WBC 9.2 k/uL (3.8-10.6)
[2020-03-01 05:41] LABS: African American GFR (CKD) >90 (>60 ml/min/1.73 sqM); Anion Gap 3 mmol/L; Blood Urea Nitrogen 20 mg/dL (9-20); Calcium 8.1 mg/dL (8.4-10.2); Carbon Dioxide 26 mmol/L (22-30); Chloride 106 mmol/L (98-107); Glucose 123 mg/dL (74-99); Non-African American GFR(CKD) >90 (>60 ml/min/1.73 sqM); Sodium 135 mmol/L (137-145)
[2020-03-01 06:05] LABS: Glucose,Whole Blood 108 mg/dL (75-99)
[2020-03-01] MEDS: INSULIN ASPART (NovoLOG) 100 UNIT/ML VIAL SQ SCH ×4 (07:13→23:37)
[2020-03-01] MEDS: METOCLOPRAMIDE 5 MG/ML 2 ML VIAL IVP SCH ×4 (07:14→23:38)
[2020-03-01] MEDS: IPRATROPIUM-ALBUTEROL 3 ML NEB INHALATION SCH ×4 (08:24→19:53)
[2020-03-01] MEDS: PIPERACILLIN-TAZOBACTAM 3.375 GM in SODIUM CHLORIDE 0.9% 100 ML IVPB SCH ×3 (09:37→23:38)
[2020-03-01] MEDS: PANTOPRAZOLE 40 MG/10 ML VIAL IVP SCH (09:37)
[2020-03-01] MEDS: AMIODARONE 200 MG TAB PO SCH ×2 (09:38→20:34)
[2020-03-01] MEDS: NOREPINEPHRINE 32 MG in SODIUM CHLORIDE 0.9% 218 ML IV SCH (09:53)
[2020-03-01] MEDS: METOPROLOL TARTRATE 25 MG TAB PO SCH ×3 (09:53→22:08)
[2020-03-01] MEDS: NYSTATIN 100,000 UNIT/GM POWD 15 GM TOPICAL SCH ×2 (09:53→20:34)
[2020-03-01 11:39] LABS: Glucose,Whole Blood 124 mg/dL (75-99)
[2020-03-01] MEDS: HEPARIN SOD,PORK IN 0.45% NACL 25,000 UNIT in 0.45% NACL 1 250ML.BAG IV SCH (12:59)
--- NOTE | 2020-03-01 13:27 | P.PN ---
Subjective Progress Note Date: 03/01/20 Principal diagnosis: Acute hypoxic respiratory failure secondary to aspiration pneumonia. This is a 64-year-old white male patient of Dr. Claude Deluna that was admitted through the emergency department on 02/11/2020 when he came in for evaluation of shortness of breath, hypoxemia. Patient has a known history of esophageal cancer status post chemotherapy and NG tube placement, has a known history of COPD and CHF. Patient was started on empiric antibiotics in the form of Zosyn, nebulized bronchodilators, and diuretics, did require high flow oxygen per Airvo, which was discontinued yesterday, patient is currently on 6 L of oxygen per high flow nasal cannula with a pulse ox of 93-95%, his tube feedings were held yesterday related to some leaking around the bolster, surgical services were consulted and Dr. Styles adjusted the bolster, and tube feedings were resumed today, with TwoCal HN currently at 10 ML per hour. Of note previously patient was receiving tube feedings and consuming some nausea fluids by mouth. He is currently strict nothing by mouth, and receiving all of his nutrition via his J-tube. He is sounding much less congested today, bronchospastic, breathing easier, more comfortably, he sitting up in the chair. His vital signs are stable, his been afebrile, hemodynamically stable, 0.9 normal saline infusing at a rate of 20 ML per hour, yesterday he received a dose of Lasix, and he produces 2.8 L and urine output, he is -1.4 L over last 24 hours, indwelling catheter is in place. On admission patient was in A. fib with RVR, he is currently in sinus mechanism, he is on oral amiodarone and Eliquis for anticoagulation, cardiology services are following. Today's chest x-ray has been reviewed, showing stable diffuse pleural parenchymal disease related to aspiration pneumonia. Today's labs have been reviewed, showing white blood cell, 10.7, hemoglobin of 12.8, sodium is 140, potassium is 3.4, the rest of electrolytes were within normal limits, BUN is 18 creatinine 0.58. All microbiology has shown no growth. He is on Zosyn for antibiotic coverage. On 02/23/2020, the patient is being seen for a follow-up. This morning the patient's upper quadrant 30 mg per KG per minute. I was told by nursing staff the patient was given a sedation holiday yesterday following that the patient aroused and he was able to follow some commands. In general, the patient is doing well. He is hemodynamically stable. He was taken gradually off levo fed and the norepinephrine infusion is currently running at 0.1 g per KG per minute. He is also on normal saline at the rate of 75 mL an hour. Doing well. No specific issues overnight. On a mechanical ventilator, he remains on assist control mode at the rate of 14 with a tidal volume of 450 and FiO2 of 50% with a PEEP of 5. The patient's blood gases from today showed a pH of 7.51 with a pCO2 of 32 and pO2 of 11. Chest x-ray shows increased interstitial markings bilaterally along with a component of pulmonary edema in addition to gastric pull-through and lower lobe consolidations and effusions that are present on previous evaluations. I feel that the patient is going into some degree of fluid overload. The neck fluid balance is been +2.8 L over the past 24 hours. The sputum culture was positive for Klebsiella. The patient is afebrile. No other issues for now. J-tube feeding will be started today. NG tube in place and output has been only 150 mL over the past 12 hours. The patient is covered with Zosyn and vancomycin and the vancomycin will be discontinued. On 02/24/2020, the patient is being seen for a follow-up. Patient is getting another sedation holiday as the patient may be able to wean off the mechanical ventilator. He is on a minimal dose of propofol for now. He is on a assist control mode of ventilation at the rate of 14 with a tidal volume of 450 and FiO2 of 35% with a PEEP of 5. PH is at 7.48 with a pCO2 of 40 and pO2 148. IV fluids at KVO. The patient remains on IV heparin. The patient remains on levo fed at 0.06 units per KG per minute. He is receiving enteral feeding with protein high-calorie at the rate of 50 mL an hour. NG tube is in place and output is minimal at this point in time. The patient was given Lasix yesterday 40 mg IV push and the neck fluid balance has been -2.7 L. Chest x-ray showing some improvement in the volume status. ET tube is in a good location. NG tube in good location. Further diuresis may be of benefit. No abdominal distention. Adequate pulses in all 4 extremities. Arousable. He is in the process of getting a sedation holiday to be checked for his weaning parameters. Patient was reevaluated today on 02/25/20, remains in the ICU, remains intubated and mechanically ventilated. His ventilator settings are assist control rate of 14, volume control plus with tidal volume is 450 FiO2 35% PEEP of 5. ABG this a.m. showed a pO2 of 94 pCO2 of 37 pH of 7.50. Patient was initially admitted on 02/10 and he was intubated on 02/18 when the rapid response team responded to a CODE BLUE. Patient is on propofol at 10 mcg/kg/m, he is also on heparin, and not requiring any pressors. Over the last few days, patient had multiple trials of spontaneous breathing trials and definitely some of them were done over the weekend, however the patient lasted at the most 455 minutes. Remains on tube feeding at 30 MLS per hour. Chest x-ray today showed evidence of bilateral pleural effusions, and I am recommending ultrasound of the chest, will likely consider thoracentesis on this patient if the fluid is large enough to be drained safely. Ultrasound showed small pockets not safe to drain at this time. The left side is only is 0.6 cm pockets and the right side is only 1.8 cm pocket. All labs were reviewed renal profile is normal. Electrolytes are normal. PTT is therapeutic at 47.6. WBC count is 9.2 hemoglobin is 10 Patient was reevaluated today on 02/26/20, remains in the ICU, intubated and mechanically ventilated. Patient is on assist control rate of 14 volume control plus of 450 FiO2 is 35% PEEP is 5 ABG showed a pO2 of 110 pCO2 of 37 pH of 7.48. Patient remains on heparin drip, propofol drip at 10 mcg/kg/m, not requiring any pressors. He is on tube feedings via J-tube. Patient was intubated on 02/18, and daily trials for weaning the patient has failed. Today I will try again with a pressure support of 14 and CPAP. I was markings the patient for almost an hour while I was in the ICU, and he seemed to tolerate that mode of weaning fairly well, patient was moving tidal volumes above 500 mL, and his respiratory rate was in the low 20s. Patient is arousable, follows simple instructions, but seems to be very swollen and generally weak. Chest x-ray shows unchanged bibasilar airspace opacities and bilateral pleural effusion, ultrasound of the chest failed to show significant effusion to consider thoracentesis. Reevaluated today on 02/27/20, patient remains in the ICU, on mechanical ventilation, ventilator settings are assist control rate of 14 tidal volume is 450 FiO2 is 35% and PEEP of 5. ABG this morning showed a pO2 of 111 pCO2 of 36 pH of 7.48. Patient is on heparin, he is hemodynamically stable, discontinued the prevent this morning, and gave the patient a weaning trial, utilizes pressure support of 12 and CPAP, however after 1 hour patient developed atrial fibrillation with RVR, and had to be placed back on assist control mode of mechanical ventilation. Chest x-ray continues to show significant consolidation in the lower lobes. Bilaterally. Nasogastric tube was noted to be high in the esophagus, and advanced down. Basic metabolic profile is normal. Renal profile is normal. WBC count is 5.7 hemoglobin is 10.5. Patient remains empirically on antibiotics/Zosyn for aspiration pneumonia. And we have been trying to wean the patient almost on a daily basis, yesterday he lasted about 5 hours on pressure support of 14 and CPAP. Today I have recommended surgical evaluation patient is definitely failure to wean, and I believe the patient will require tracheostomy. Patient was reevaluated today on 02/28/20, remains in the ICU, intubated and mechanically ventilated. His ventilator settings are assist control rate of 14 tidal volume is 450 FiO2 is 35% PEEP of 5. ABG this morning showed a pO2 of 111 pCO2 of 36 pH of 7.49. Patient remains on propofol and heparin drip. He is hemodynamically stable, not requiring any pressors. However for the last 4 days I have been attempting to wean the patient, and has been not successful so far. Today I plan to try again on the pressure support of 12 and CPAP, and if tolerated will go down to pressure support of 10 and possibly a pressure support of 8, and if he continues to tolerate may even receipt to extubating the patient. However patient has not been able to do so for the last few days, and I am not certain he would be able to wean and successfully extubated today. Patient is extremely frail, weak, he could barely raise his had off the pillow. And he is quite debilitated. Yesterday while weaning patient developed A. fib with RVR, and had to stop the weaning process. Chest x-ray continues to show significant bilateral consolidation and airspace disease. Labs today were reviewed his PTT is therapeutic. Basic metabolic profile is normal liver profile is relatively normal. WBC count is 7 hemoglobin is 11.2. Patient remains on enteral feeding utilizing his J-tube. Reevaluated today on 02/29/20, patient was extubated yesterday successfully, after he was placed on a pressure support of 8 and CPAP for almost 4 hours. Patient is now on 3 L oxygen with O2 saturation of 94%. He remains on heparin for his atrial fibrillation. Continues to have a left subclavian central line which I would like to discontinue and hopefully get a PICC line in this patient. Apparently interventional radiology tried once and couldn't establish a PICC line. Patient was extubated on 02/27 successfully, he continues to receive Zosyn for his Klebsiella pneumonia/aspiration pneumonia. He was initially extubated to a BiPAP, and has been on nasal cannula overnight. He is hemodynam ically stable. Electrolytes and renal profile are normal. CBC is relatively normal hemoglobin is 10.5 PTT is therapeutic at 49.4. Patient was reevaluated today on 03/01/20, patient remains in the ICU, he is on 4 L nasal cannula, he had a PICC line placed yesterday in the left brachial area, central line was discontinued. He is on enteral feeding through a jejunostomy tube. Patient will be restarted on Coumadin and his first dose today will be 7.5 mg daily. Remains on Zosyn for aspiration pneumonia. Clinically the patient is doing much better over the last few days since he was extubated. Physical therapy is working on the patient, and ambulating him to a bedside chair on a daily basis. Patient seems to be in good spirits, however he is extremely weak frail and cachectic. Objective - Vital Signs Vital signs: Vital Signs Temp 97.4 F L 03/01/20 08:00 Pulse 122 H 03/01/20 11:55 Resp 23 03/01/20 10:00 BP 118/75 03/01/20 10:00 Pulse Ox 94 L 03/01/20 10:00 Intake & Output 02/29/20 03/01/2020 18:59 06:59 18:59 Intake Total 1424 846 901 Output Total 1000 961 681 Balance 424 -115 220 Weight 65.5 kg 66.5 kg Intake: IV 374 156 91 0.9 Normal Saline as 54 36 21 pressure bag @ 3mL/hr Piperacillin-Tazobactam 3 100 .375 gm In Sodium Chloride 0.9% 100 ml @ 25 mls/hr IVPB Q8HR [facility] Rx# :[id number] Piperacillin-Tazobactam 3 100 .375 gm In Sodium Chloride 0.9% 100 ml @ 25 mls/hr IVPB Q8HR [facility] Rx# :[id number] Sodium Chloride 0.9% 1, 120 120 70 000 ml @ 10 mls/hr IV . Q24H [facility] Rx#:[id number] Intake, IV Titration 250 250 Amount Heparin Sod,Pork in 0.45% 250 250 NaCl 25,000 unit In 0.45 % NaCl 1 250ml.bag @ 12 UNITS/KG/HR 7.92 mls/hr IV .Q24H [facility] Rx#: [id number] Tube Feeding 710 600 500 Other 90 90 60 Output: Urine 1000 960 680 Stool 1 1 Other: Voiding Method Indwelling Catheter Indwelling Catheter Indwelling Catheter # Bowel Movements 1 1 ABP, PAP, CO, CI - Last Documented Arterial Blood Pressure 126/65 - Exam GENERAL EXAM: Revealed a 64-year-old white male, frail looking, on nasal cannula. Awake, and in no distress.. HEAD: Normocephalic/atraumatic. EENT: PERRLA, EOMI, neck is supple, no neck masses, no JVD, CHEST: No chest wall deformity. Symmetrical expansion. LUNGS: Symmetrical chest expansion, crackles at the bases.. CVS: Irregular irregular rhythm, no S3 gallop. No murmur. ABDOMEN: Soft, nontender. No hepatosplenomegaly, normal bowel sounds, no guarding or rigidity. J tube is in place EXTREMITIES: No clubbing edema or cyanosis. Left brachial PICC line MUSCULOSKELETAL: Normal muscle tone. Generalized weakness noted. SKIN: No rashes CENTRAL NERVOUS SYSTEM: Awake alert oriented 3, generally weak, otherwise no gross focal deficits. - Labs CBC & Chem 7: 03/01/20 04:20 03/01/20 04:20 Labs: Abnormal Lab Results - Last 24 Hours (Table) 02/29/20 02/29/20 03/01/20 Range/Units 19:20 23:27 04:20 RBC 3.62 L (4.30-5.90) m/uL Hgb 10.3 L (13.0-17.5) gm/dL Hct 32.7 L (39.0-53.0) % RDW 15.7 H (11.5-15.5) % APTT (22.0-30.0) sec Sodium (137-145) mmol/L Creatinine (0.66-1.25) mg/dL Glucose (74-99) mg/dL POC Glucose (mg/dL) 120 H 100 H (75-99) mg/dL Calcium (8.4-10.2) mg/dL 03/01/20 03/01/20 03/01/20 Range/Units 04:20 04:20 06:04 RBC (4.30-5.90) m/uL Hgb (13.0-17.5) gm/dL Hct (39.0-53.0) % RDW (11.5-15.5) % APTT 46.0 H (22.0-30.0) sec Sodium 135 L (137-145) mmol/L Creatinine 0.64 L (0.66-1.25) mg/dL Glucose 123 H (74-99) mg/dL POC Glucose (mg/dL) 108 H (75-99) mg/dL Calcium 8.1 L (8.4-10.2) mg/dL 03/01/20 Range/Units 11:38 RBC (4.30-5.90) m/uL Hgb (13.0-17.5) gm/dL Hct (39.0-53.0) % RDW (11.5-15.5) % APTT (22.0-30.0) sec Sodium (137-145) mmol/L Creatinine (0.66-1.25) mg/dL Glucose (74-99) mg/dL POC Glucose (mg/dL) 124 H (75-99) mg/dL Calcium (8.4-10.2) mg/dL Assessment and Plan Assessment: Impression: Acute hypoxic respiratory failure secondary to aspiration pneumonia. Sputum has been positive for Klebsiella pneumoniae and the patient remains on Zosyn. Suspect some component of acute diastolic congestive heart failure, remains on diuretics. Atrial fibrillation with RVR, improved, patient is on amiodarone. Remains on IV heparin. History of esophageal cancer, patient is status post gastric pull through and being fed through a J-tube. History of seizure disorder. History of brain aneurysm and previous rupture with residual left-sided weakness. And history of seizures related to the aneurysm. Obstructive sleep apnea syndrome not compliant with CPAP. Non-anion gap metabolic acidosis on presentation secondary to sepsis improving/recovered. Medical debility, patient is wheelchair bound. Status post PICC line placement on 02/29/20. Successful extubation on 02/28/20, presently maintained on nasal cannula. Recommendation: Continue to monitor the patient in the ICU for for at least 24 hours. Continue GI and DVT prophylaxis. Restart patient on Coumadin and eventually discontinue heparin. Continue IV fluids at KVO. Continue diuretics. Continue Zosyn for aspiration pneumonia. Possibly transfer out of the ICU to a regular medical floor or cardiac floor in the next 24 hours. Time with Patient: Less than 30
--- NOTE | 2020-03-01 15:25 | P.PN ---
Subjective Progress Note Date: 03/01/20 This is a 64-year-old gentleman who was extubated yesterday. Patient is still having intermittent atrial fibrillation alternating with sinus rhythm, sinus bradycardia with frequent APCs. Patient was initiated on Coumadin today. Received a dose of 7.5 mg He is also on antibiotics for aspiration pneumonia. Overall, patient has made good progress. Patient is on enteral feeding through a jejunostomy tube Continue current medical therapy. Hopefully patient doesn't need any permanent pacemaker for tachybradycardia syndrome. Objective - Vital Signs Vital signs: Vital Signs Temp 97.4 F L 03/01/20 08:00 Pulse 122 H 03/01/20 11:55 Resp 23 03/01/20 10:00 BP 118/75 03/01/20 10:00 Pulse Ox 94 L 03/01/20 10:00 Intake & Output 02/29/20 03/01/20 03/01/20 18:59 06:59 18:59 Intake Total 1424 846 901 Output Total 1000 961 681 Balance 424 -115 220 Weight 65.5 kg 66.5 kg Intake: IV 374 156 91 0.9 Normal Saline as 54 36 21 pressure bag @ 3mL/hr Piperacillin-Tazobactam 3 100 .375 gm In Sodium Chloride 0.9% 100 ml @ 25 mls/hr IVPB Q8HR [facility] Rx# :[id number] Piperacillin-Tazobactam 3 100 .375 gm In Sodium Chloride 0.9% 100 ml @ 25 mls/hr IVPB Q8HR [facility]ER Rx# :[id number] Sodium Chloride 0.9% 1, 120 120 70 000 ml @ 10 mls/hr IV . Q24H [facility] Rx#:[id number] Intake, IV Titration 250 250 Amount Heparin Sod,Pork in 0.45% 250 250 NaCl 25,000 unit In 0.45 % NaCl 1 250ml.bag @ 12 UNITS/KG/HR 7.92 mls/hr IV .Q24H [facility]ER Rx#: [id number] Tube Feeding 710 600 500 Other 90 90 60 Output: Urine 1000 960 680 Stool 1 1 Other: Voiding Method Indwelling Catheter Indwelling Catheter Indwelling Catheter # Bowel Movements 1 1 ABP, PAP, CO, CI - Last Documented Arterial Blood Pressure 126/65 - Exam GENERAL EXAM: Patient is alert and oriented and doesn't appear to be in any acute distress, Sitting in the chair HEENT: Normocephalic. Normal reaction of pupils, equal size, normal range of extraocular motion. No erythema or exudates in the throat. NECK: No masses, no nuchal rigidity. CHEST: No chest wall deformity. LUNGS: [Diminished breath sounds with scattered rhonchi HEART: S1 and S2 normal with a regular rhythm ABDOMEN: No hepatosplenomegaly, normal bowel sounds, no guarding or rigidity. SKIN: No rashes CENTRAL NERVOUS SYSTEM: No focal deficits. EXTREMITIES: [No cyanosis, clubbing or edema.] - Labs CBC & Chem 7: 03/01/20 04:20 03/01/20 04:20 Labs: Abnormal Lab Results - Last 24 Hours (Table) 02/29/20 02/29/20 03/01/20 Range/Units 19:20 23:27 04:20 RBC 3.62 L (4.30-5.90) m/uL Hgb 10.3 L (13.0-17.5) gm/dL Hct 32.7 L (39.0-53.0) % RDW 15.7 H (11.5-15.5) % APTT (22.0-30.0) sec Sodium (137-145) mmol/L Creatinine (0.66-1.25) mg/dL Glucose (74-99) mg/dL POC Glucose (mg/dL) 120 H 100 H (75-99) mg/dL Calcium (8.4-10.2) mg/dL 03/01/20 03/01/20 03/01/20 Range/Units 04:20 04:20 06:04 RBC (4.30-5.90) m/uL Hgb (13.0-17.5) gm/dL Hct (39.0-53.0) % RDW (11.5-15.5) % APTT 46.0 H (22.0-30.0) sec Sodium 135 L (137-145) mmol/L Creatinine 0.64 L (0.66-1.25) mg/dL Glucose 123 H (74-99) mg/dL POC Glucose (mg/dL) 108 H (75-99) mg/dL Calcium 8.1 L (8.4-10.2) mg/dL 03/01/20 Range/Units 11:38 RBC (4.30-5.90) m/uL Hgb (13.0-17.5) gm/dL Hct (39.0-53.0) % RDW (11.5-15.5) % APTT (22.0-30.0) sec Sodium (137-145) mmol/L Creatinine (0.66-1.25) mg/dL Glucose (74-99) mg/dL POC Glucose (mg/dL) 124 H (75-99) mg/dL Calcium (8.4-10.2) mg/dL Assessment and Plan (1) Atrial fibrillation with rapid ventricular response Current Visit: Yes Status: Acute Code(s): I48.91 - UNSPECIFIED ATRIAL FIBRILLATION SNOMED Code(s): 460630750153491 (2) Aspiration pneumonia Current Visit: No Status: Acute Priority: High Code(s): J69.0 - PNEUMONITIS DUE TO INHALATION OF FOOD AND VOMIT SNOMED Code(s): 590769512 (3) History of esophageal cancer Current Visit: Yes Status: Acute Code(s): Z85.01 - PERSONAL HISTORY OF MALIGNANT NEOPLASM OF ESOPHAGUS SNOMED Code(s): 708010402 (4) History of cerebral aneurysm Current Visit: Yes Status: Acute Code(s): Z86.79 - PERSONAL HISTORY OF OTHER DISEASES OF THE CIRCULATORY SYSTEM SNOMED Code(s): 02598157470319058 Plan: Continue current medical therapy. We'll monitor for any tachybradycardia syndrome. Continue antibiotic therapy. Increase activity
[2020-03-01] MEDS: WARFARIN 7.5 MG TAB PO SCH (17:13)
[2020-03-01] MEDS: SODIUM CHLORIDE 0.9% 1,000 ML IV SCH (17:14)
[2020-03-01 18:11] LABS: Glucose,Whole Blood 119 mg/dL (75-99)
[2020-03-01 23:40] LABS: Glucose,Whole Blood 108 mg/dL (75-99)
[2020-03-02 04:22] LABS: HCT 35.7 % (39.0-53.0); HGB 11.4 gm/dL (13.0-17.5); MCHC 31.9 g/dL (31.0-37.0); MCV 90.8 fL (80.0-100.0); Mean Platelet Volume 8.5; Platelet Count 284 k/uL (150-450); RBC 3.93 m/uL (4.30-5.90); WBC 15.3 k/uL (3.8-10.6)
[2020-03-02 04:37] LABS: African American GFR (CKD) >90 (>60 ml/min/1.73 sqM); Anion Gap 5 mmol/L; Blood Urea Nitrogen 18 mg/dL (9-20); Calcium 8.5 mg/dL (8.4-10.2); Carbon Dioxide 25 mmol/L (22-30); Chloride 105 mmol/L (98-107); Non-African American GFR(CKD) >90 (>60 ml/min/1.73 sqM); Potassium 4.1 mmol/L (3.5-5.1); Sodium 135 mmol/L (137-145)
[2020-03-02 04:38] LABS: Glucose 148 mg/dL (74-99)
[2020-03-02 06:16] LABS: Glucose,Whole Blood 117 mg/dL (75-99)
[2020-03-02] MEDS: INSULIN ASPART (NovoLOG) 100 UNIT/ML VIAL SQ SCH ×3 (06:24→18:22)
[2020-03-02] MEDS: HEPARIN SOD,PORK IN 0.45% NACL 25,000 UNIT in 0.45% NACL 1 250ML.BAG IV SCH ×2 (06:26→23:26)
[2020-03-02] MEDS: METOCLOPRAMIDE 5 MG/ML 2 ML VIAL IVP SCH ×4 (06:26→23:25)
[2020-03-02] MEDS: IPRATROPIUM-ALBUTEROL 3 ML NEB INHALATION SCH ×4 (07:43→20:39)
[2020-03-02] MEDS: PIPERACILLIN-TAZOBACTAM 3.375 GM in SODIUM CHLORIDE 0.9% 100 ML IVPB SCH ×3 (08:50→23:25)
[2020-03-02] MEDS: METOPROLOL TARTRATE 25 MG TAB PO SCH ×3 (08:50→21:57)
[2020-03-02] MEDS: NYSTATIN 100,000 UNIT/GM POWD 15 GM TOPICAL SCH ×2 (08:50→22:14)
[2020-03-02] MEDS: AMIODARONE 200 MG TAB PO SCH ×2 (08:50→21:57)
[2020-03-02] MEDS: PANTOPRAZOLE 40 MG/10 ML VIAL IVP SCH (08:50)
[2020-03-02] MEDS: NOREPINEPHRINE 32 MG in SODIUM CHLORIDE 0.9% 218 ML IV SCH (08:51)
[2020-03-02 08:55] LABS: INR 1.3 (<1.2); Prothrombin Time 12.6 sec (9.0-12.0)
--- NOTE | 2020-03-02 11:41 | P.PN ---
Subjective Progress Note Date: 03/02/20 Principal diagnosis: Acute hypoxic respiratory failure secondary to aspiration pneumonia. This is a 64-year-old white male patient of Dr. Claude Deluna that was admitted through the emergency department on 02/11/2020 when he came in for evaluation of shortness of breath, hypoxemia. Patient has a known history of esophageal cancer status post chemotherapy and NG tube placement, has a known history of COPD and CHF. Patient was started on empiric antibiotics in the form of Zosyn, nebulized bronchodilators, and diuretics, did require high flow oxygen per Airvo, which was discontinued yesterday, patient is currently on 6 L of oxygen per high flow nasal cannula with a pulse ox of 93-95%, his tube feedings were held yesterday related to some leaking around the bolster, surgical services were consulted and Dr. Styles adjusted the bolster, and tube feedings were resumed today, with TwoCal HN currently at 10 ML per hour. Of note previously patient was receiving tube feedings and consuming some nausea fluids by mouth. He is currently strict nothing by mouth, and receiving all of his nutrition via his J-tube. He is sounding much less congested today, bronchospastic, breathing easier, more comfortably, he sitting up in the chair. His vital signs are stable, his been afebrile, hemodynamically stable, 0.9 normal saline infusing at a rate of 20 ML per hour, yesterday he received a dose of Lasix, and he produces 2.8 L and urine output, he is -1.4 L over last 24 hours, indwelling catheter is in place. On admission patient was in A. fib with RVR, he is currently in sinus mechanism, he is on oral amiodarone and Eliquis for anticoagulation, cardiology services are following. Today's chest x-ray has been reviewed, showing stable diffuse pleural parenchymal disease related to aspiration pneumonia. Today's labs have been reviewed, showing white blood cell, 10.7, hemoglobin of 12.8, sodium is 140, potassium is 3.4, the rest of electrolytes were within normal limits, BUN is 18 creatinine 0.58. All microbiology has shown no growth. He is on Zosyn for antibiotic coverage. On 02/23/2020, the patient is being seen for a follow-up. This morning the patient's upper quadrant 30 mg per KG per minute. I was told by nursing staff the patient was given a sedation holiday yesterday following that the patient aroused and he was able to follow some commands. In general, the patient is doing well. He is hemodynamically stable. He was taken gradually off levo fed and the norepinephrine infusion is currently running at 0.1 g per KG per minute. He is also on normal saline at the rate of 75 mL an hour. Doing well. No specific issues overnight. On a mechanical ventilator, he remains on assist control mode at the rate of 14 with a tidal volume of 450 and FiO2 of 50% with a PEEP of 5. The patient's blood gases from today showed a pH of 7.51 with a pCO2 of 32 and pO2 of 11. Chest x-ray shows increased interstitial markings bilaterally along with a component of pulmonary edema in addition to gastric pull-through and lower lobe consolidations and effusions that are present on previous evaluations. I feel that the patient is going into some degree of fluid overload. The neck fluid balance is been +2.8 L over the past 24 hours. The sputum culture was positive for Klebsiella. The patient is afebrile. No other issues for now. J-tube feeding will be started today. NG tube in place and output has been only 150 mL over the past 12 hours. The patient is covered with Zosyn and vancomycin and the vancomycin will be discontinued. On 02/24/2020, the patient is being seen for a follow-up. Patient is getting another sedation holiday as the patient may be able to wean off the mechanical ventilator. He is on a minimal dose of propofol for now. He is on a assist control mode of ventilation at the rate of 14 with a tidal volume of 450 and FiO2 of 35% with a PEEP of 5. PH is at 7.48 with a pCO2 of 40 and pO2 148. IV fluids at KVO. The patient remains on IV heparin. The patient remains on levo fed at 0.06 units per KG per minute. He is receiving enteral feeding with protein high-calorie at the rate of 50 mL an hour. NG tube is in place and output is minimal at this point in time. The patient was given Lasix yesterday 40 mg IV push and the neck fluid balance has been -2.7 L. Chest x-ray showing some improvement in the volume status. ET tube is in a good location. NG tube in good location. Further diuresis may be of benefit. No abdominal distention. Adequate pulses in all 4 extremities. Arousable. He is in the process of getting a sedation holiday to be checked for his weaning parameters. Patient was reevaluated today on 02/25/20, remains in the ICU, remains intubated and mechanically ventilated. His ventilator settings are assist control rate of 14, volume control plus with tidal volume is 450 FiO2 35% PEEP of 5. ABG this a.m. showed a pO2 of 94 pCO2 of 37 pH of 7.50. Patient was initially admitted on 02/10 and he was intubated on 02/18 when the rapid response team responded to a CODE BLUE. Patient is on propofol at 10 mcg/kg/m, he is also on heparin, and not requiring any pressors. Over the last few days, patient had multiple trials of spontaneous breathing trials and definitely some of them were done over the weekend, however the patient lasted at the most 455 minutes. Remains on tube feeding at 30 MLS per hour. Chest x-ray today showed evidence of bilateral pleural effusions, and I am recommending ultrasound of the chest, will likely consider thoracentesis on this patient if the fluid is large enough to be drained safely. Ultrasound showed small pockets not safe to drain at this time. The left side is only is 0.6 cm pockets and the right side is only 1.8 cm pocket. All labs were reviewed renal profile is normal. Electrolytes are normal. PTT is therapeutic at 47.6. WBC count is 9.2 hemoglobin is 10 Patient was reevaluated today on 02/26/20, remains in the ICU, intubated and mechanically ventilated. Patient is on assist control rate of 14 volume control plus of 450 FiO2 is 35% PEEP is 5 ABG showed a pO2 of 110 pCO2 of 37 pH of 7.48. Patient remains on heparin drip, propofol drip at 10 mcg/kg/m, not requiring any pressors. He is on tube feedings via J-tube. Patient was intubated on 02/18, and daily trials for weaning the patient has failed. Today I will try again with a pressure support of 14 and CPAP. I was markings the patient for almost an hour while I was in the ICU, and he seemed to tolerate that mode of weaning fairly well, patient was moving tidal volumes above 500 mL, and his respiratory rate was in the low 20s. Patient is arousable, follows simple instructions, but seems to be very swollen and generally weak. Chest x-ray shows unchanged bibasilar airspace opacities and bilateral pleural effusion, ultrasound of the chest failed to show significant effusion to consider thoracentesis. Reevaluated today on 02/27/20, patient remains in the ICU, on mechanical ventilation, ventilator settings are assist control rate of 14 tidal volume is 450 FiO2 is 35% and PEEP of 5. ABG this morning showed a pO2 of 111 pCO2 of 36 pH of 7.48. Patient is on heparin, he is hemodynamically stable, discontinued the prevent this morning, and gave the patient a weaning trial, utilizes pressure support of 12 and CPAP, however after 1 hour patient developed atrial fibrillation with RVR, and had to be placed back on assist control mode of mechanical ventilation. Chest x-ray continues to show significant consolidation in the lower lobes. Bilaterally. Nasogastric tube was noted to be high in the esophagus, and advanced down. Basic metabolic profile is normal. Renal profile is normal. WBC count is 5.7 hemoglobin is 10.5. Patient remains empirically on antibiotics/Zosyn for aspiration pneumonia. And we have been trying to wean the patient almost on a daily basis, yesterday he lasted about 5 hours on pressure support of 14 and CPAP. Today I have recommended surgical evaluation patient is definitely failure to wean, and I believe the patient will require tracheostomy. Patient was reevaluated today on 02/28/20, remains in the ICU, intubated and mechanically ventilated. His ventilator settings are assist control rate of 14 tidal volume is 450 FiO2 is 35% PEEP of 5. ABG this morning showed a pO2 of 111 pCO2 of 36 pH of 7.49. Patient remains on propofol and heparin drip. He is hemodynamically stable, not requiring any pressors. However for the last 4 days I have been attempting to wean the patient, and has been not successful so far. Today I plan to try again on the pressure support of 12 and CPAP, and if tolerated will go down to pressure support of 10 and possibly a pressure support of 8, and if he continues to tolerate may even receipt to extubating the patient. However patient has not been able to do so for the last few days, and I am not certain he would be able to wean and successfully extubated today. Patient is extremely frail, weak, he could barely raise his had off the pillow. And he is quite debilitated. Yesterday while weaning patient developed A. fib with RVR, and had to stop the weaning process. Chest x-ray continues to show significant bilateral consolidation and airspace disease. Labs today were reviewed his PTT is therapeutic. Basic metabolic profile is normal liver profile is relatively normal. WBC count is 7 hemoglobin is 11.2. Patient remains on enteral feeding utilizing his J-tube. Reevaluated today on 02/29/20, patient was extubated yesterday successfully, after he was placed on a pressure support of 8 and CPAP for almost 4 hours. Patient is now on 3 L oxygen with O2 saturation of 94%. He remains on heparin for his atrial fibrillation. Continues to have a left subclavian central line which I would like to discontinue and hopefully get a PICC line in this patient. Apparently interventional radiology tried once and couldn't establish a PICC line. Patient was extubated on 02/27 successfully, he continues to receive Zosyn for his Klebsiella pneumonia/aspiration pneumonia. He was initially extubated to a BiPAP, and has been on nasal cannula overnight. He is hemodynam ically stable. Electrolytes and renal profile are normal. CBC is relatively normal hemoglobin is 10.5 PTT is therapeutic at 49.4. Patient was reevaluated today on 03/01/20, patient remains in the ICU, he is on 4 L nasal cannula, he had a PICC line placed yesterday in the left brachial area, central line was discontinued. He is on enteral feeding through a jejunostomy tube. Patient will be restarted on Coumadin and his first dose today will be 7.5 mg daily. Remains on Zosyn for aspiration pneumonia. Clinically the patient is doing much better over the last few days since he was extubated. Physical therapy is working on the patient, and ambulating him to a bedside chair on a daily basis. Patient seems to be in good spirits, however he is extremely weak frail and cachectic. Patient was reevaluated today on 03/02/20, remains in the ICU, tolerated extubation well. Last few days, remains in atrial fibrillation, on heparin, and I have started Coumadin yesterday. INR remains subtherapeutic. Patient is sitting in a bedside chair, he has a strong cough, denies any shortness of catrachita ath, denies any chest pain, remains on enteral feedings via J-tube. Remains on antibiotics for aspiration pneumonia. Remains weak and frail. Labs today showed WBC count of 15.3 hemoglobin is 11.4. INR is 1.3 PTT is 55 electric are normal renal profile is normal. Objective - Vital Signs Vital signs: Vital Signs Temp 98.0 F 03/02/20 04:00 Pulse 91 03/02/20 11:00 Resp 20 03/02/20 11:00 BP 101/83 03/02/20 11:00 Pulse Ox 95 03/02/20 11:00 Intake & Output 03/01/20 03/02/20 03/02/20 18:59 06:59 18:59 Intake Total 1459 1106.674 437.5 Output Total 1166 775 405 Balance 293 331.674 32.5 Weight 67.5 kg Intake: IV 169 200 57.5 0.9 Normal Saline as 39 30 pressure bag @ 3mL/hr Sodium Chloride 0.9% 1, 130 70 20 000 ml @ 10 mls/hr IV . Q24H [facility] Rx#:[id number] zosyn 100 37.5 Intake, IV Titration 250 236.674 Amount Heparin Sod,Pork in 0.45% 250 236.674 NaCl 25,000 unit In 0.45 % NaCl 1 250ml.bag @ 12 UNITS/KG/HR 7.92 mls/hr IV .Q24H [facility] Rx#: [id number] Tube Feeding 950 550 350 Other 90 120 30 Output: Urine 1165 775 405 Stool 1 Other: Voiding Method Indwelling Catheter Indwelling Catheter Indwelling Catheter ABP, PAP, CO, CI - Last Documented Arterial Blood Pressure 97/54 - Exam GENERAL EXAM: Revealed a 64-year-old white male, on nasal cannula, in no distress. HEAD: Normocephalic/atraumatic. EENT: PERRLA, EOMI, neck is supple, no neck masses, no JVD, CHEST: No chest wall deformity. Symmetrical expansion. LUNGS: Symmetrical chest expansion, fine crackles at the bases.. CVS: Irregular irregular rhythm, no S3 gallop. No murmur. ABDOMEN: Soft, nontender. No hepatosplenomegaly, normal bowel sounds, no guarding or rigidity. J tube is in place EXTREMITIES: No clubbing edema or cyanosis. Left brachial PICC line MUSCULOSKELETAL: Normal muscle tone. Generalized weakness noted. SKIN: No rashes CENTRAL NERVOUS SYSTEM: Awake alert oriented 3, generally weak, otherwise no gross focal deficits. - Labs CBC & Chem 7: 03/02/20 04:00 03/02/20 04:00 Labs: Abnormal Lab Results - Last 24 Hours (Table) 03/01/20 03/01/20 03/01/20 Range/Units 11:38 18:10 23:28 WBC (3.8-10.6) k/uL RBC (4.30-5.90) m/uL Hgb (13.0-17.5) gm/dL Hct (39.0-53.0) % RDW (11.5-15.5) % PT (9.0-12.0) sec INR (<1.2) APTT (22.0-30.0) sec Sodium (137-145) mmol/L Creatinine (0.66-1.25) mg/dL Glucose (74-99) mg/dL POC Glucose (mg/dL) 124 H 119 H 108 H (75-99) mg/dL 03/02/20 03/02/20 03/02/20 Range/Units 04:00 04:00 04:00 WBC 15.3 H (3.8-10.6) k/uL RBC 3.93 L (4.30-5.90) m/uL Hgb 11.4 L (13.0-17.5) gm/dL Hct 35.7 L (39.0-53.0) % RDW 16.0 H (11.5-15.5) % PT (9.0-12.0) sec INR (<1.2) APTT 55.4 H (22.0-30.0) sec Sodium 135 L (137-145) mmol/L Creatinine 0.62 L (0.66-1.25) mg/dL Glucose 148 H (74-99) mg/dL POC Glucose (mg/dL) (75-99) mg/dL 03/02/20 03/02/20 Range/Units 04:00 06:15 WBC (3.8-10.6) k/uL RBC (4.30-5.90) m/uL Hgb (13.0-17.5) gm/dL Hct (39.0-53.0) % RDW (11.5-15.5) % PT 12.6 H (9.0-12.0) sec INR 1.3 H (<1.2) APTT (22.0-30.0) sec Sodium (137-145) mmol/L Creatinine (0.66-1.25) mg/dL Glucose (74-99) mg/dL POC Glucose (mg/dL) 117 H (75-99) mg/dL Assessment and Plan Assessment: Impression: Acute hypoxic respiratory failure secondary to aspiration pneumonia. Sputum has been positive for Klebsiella pneumoniae and the patient remains on Zosyn. Suspect some component of acute diastolic congestive heart failure, remains on diuretics. Atrial fibrillation with RVR, improved, patient is on amiodarone. Remains on IV heparin. History of esophageal cancer, patient is status post gastric pull through and being fed through a J-tube. History of seizure disorder. History of brain aneurysm and previous rupture with residual left-sided weakness. And history of seizures related to the aneurysm. Obstructive sleep apnea syndrome not compliant with CPAP. Non-anion gap metabolic acidosis on presentation secondary to sepsis improving/recovered. Medical debility, patient is wheelchair bound. Status post PICC line placement on 02/29/20. Successful extubation on 02/28/20, presently maintained on nasal cannula. Recommendation: Transfer patient out of the ICU to a monitored bed on selective. Continue Coumadin and heparin however once the patient is therapeutic on Coumadin heparin to be discontinued. Continue GI and DVT prophylaxis. Continue IV fluids at KVO. Continue diuretics. Continue Zosyn for aspiration pneumonia. Continue physical therapy. Continue incentive spirometry. Overall long-term prognosis remains relatively guarded. Patient will definitely need placement, and this will be addressed by social work lecturer and case management on the case Time with Patient: Less than 30
--- NOTE | 2020-03-02 12:46 | P.PN ---
Subjective Progress Note Date: 03/02/20 This is a 64-year-old gentleman who was extubated yesterday. Patient is still having intermittent atrial fibrillation alternating with sinus rhythm, sinus bradycardia with frequent APCs. Patient was initiated on Coumadin today. Received a dose of 7.5 mg He is also on antibiotics for aspiration pneumonia. Overall, patient has made good progress. Patient is on enteral feeding through a jejunostomy tube Continue current medical therapy. Hopefully patient doesn't need any permanent pacemaker for tachybradycardia syndrome. 03/02/2020: This patient seemed to be relatively stable. Mostly sinus rhythm with episodes of atrial fibrillation. Gettings slightly stronger. He is being treated with antibiotics for aspiration pneumonia. He is on Coumadin. His INRs are subtherapeutic. This is being adjusted by pulmonary. Continue current medical therapy. Increase activity as tolerated Objective - Vital Signs Vital signs: Vital Signs Temp 98.0 F 03/02/20 04:00 Pulse 84 03/02/20 11:48 Resp 20 03/02/20 11:00 BP 101/83 03/02/20 11:00 Pulse Ox 95 03/02/20 11:00 Intake & Output 03/01/20 03/02/20 03/02/20 18:59 06:59 18:59 Intake Total 1459 1106.674 487.5 Output Total 1166 775 405 Balance 293 331.674 82.5 Weight 67.5 kg Intake: IV 169 200 57.5 0.9 Normal Saline as 39 30 pressure bag @ 3mL/hr Sodium Chloride 0.9% 1, 130 70 20 000 ml @ 10 mls/hr IV . Q24H EDER Rx#:[id number] zosyn 100 37.5 Intake, IV Titration 250 236.674 Amount Heparin Sod,Pork in 0.45% 250 236.674 NaCl 25,000 unit In 0.45 % NaCl 1 250ml.bag @ 12 UNITS/KG/HR 7.92 mls/hr IV .Q24H EDER Rx#: [id number] Tube Feeding 950 550 400 Other 90 120 30 Output: Urine 1165 775 405 Stool 1 Other: Voiding Method Indwelling Catheter Indwelling Catheter Indwelling Catheter ABP, PAP, CO, CI - Last Documented Arterial Blood Pressure 97/54 - Exam GENERAL EXAM: Patient is alert and oriented and doesn't appear to be in any acute distress, Sitting in the chair HEENT: Normocephalic. Normal reaction of pupils, equal size, normal range of extraocular motion. No erythema or exudates in the throat. NECK: No masses, no nuchal rigidity. CHEST: No chest wall deformity. LUNGS: [Diminished breath sounds with scattered rhonchi HEART: S1 and S2 normal with a regular rhythm ABDOMEN: No hepatosplenomegaly, normal bowel sounds, no guarding or rigidity. SKIN: No rashes CENTRAL NERVOUS SYSTEM: No focal deficits. EXTREMITIES: [No cyanosis, clubbing or edema.] - Labs CBC & Chem 7: 03/02/20 04:00 03/02/20 04:00 Labs: Abnormal Lab Results - Last 24 Hours (Table) 03/01/20 03/01/20 03/02/20 Range/Units 18:10 23:28 04:00 WBC 15.3 H (3.8-10.6) k/uL RBC 3.93 L (4.30-5.90) m/uL Hgb 11.4 L (13.0-17.5) gm/dL Hct 35.7 L (39.0-53.0) % RDW 16.0 H (11.5-15.5) % PT (9.0-12.0) sec INR (<1.2) APTT (22.0-30.0) sec Sodium (137-145) mmol/L Creatinine (0.66-1.25) mg/dL Glucose (74-99) mg/dL POC Glucose (mg/dL) 119 H 108 H (75-99) mg/dL 03/02/20 03/02/20 03/02/20 Range/Units 04:00 04:00 04:00 WBC (3.8-10.6) k/uL RBC (4.30-5.90) m/uL Hgb (13.0-17.5) gm/dL Hct (39.0-53.0) % RDW (11.5-15.5) % PT 12.6 H (9.0-12.0) sec INR 1.3 H (<1.2) APTT 55.4 H (22.0-30.0) sec Sodium 135 L (137-145) mmol/L Creatinine 0.62 L (0.66-1.25) mg/dL Glucose 148 H (74-99) mg/dL POC Glucose (mg/dL) (75-99) mg/dL 03/02/20 Range/Units 06:15 WBC (3.8-10.6) k/uL RBC (4.30-5.90) m/uL Hgb (13.0-17.5) gm/dL Hct (39.0-53.0) % RDW (11.5-15.5) % PT (9.0-12.0) sec INR (<1.2) APTT (22.0-30.0) sec Sodium (137-145) mmol/L Creatinine (0.66-1.25) mg/dL Glucose (74-99) mg/dL POC Glucose (mg/dL) 117 H (75-99) mg/dL Assessment and Plan (1) Atrial fibrillation with rapid ventricular response Current Visit: Yes Status: Acute Code(s): I48.91 - UNSPECIFIED ATRIAL FIBRILLATION SNOMED Code(s): 914245111963845 (2) Aspiration pneumonia Current Visit: No Status: Acute Priority: High Code(s): J69.0 - PNEUMONITIS DUE TO INHALATION OF FOOD AND VOMIT SNOMED Code(s): 548675799 (3) History of esophageal cancer Current Visit: Yes Status: Acute Code(s): Z85.01 - PERSONAL HISTORY OF MALIGNANT NEOPLASM OF ESOPHAGUS SNOMED Code(s): 229562377 (4) History of cerebral aneurysm Current Visit: Yes Status: Acute Code(s): Z86.79 - PERSONAL HISTORY OF OTHER DISEASES OF THE CIRCULATORY SYSTEM SNOMED Code(s): 50801864623883251 Plan: Mostly in sinus rhythm with intermittent atrial fibrillation. On Coumadin for anticoagulation. The rest of the management as for pulmonary
[2020-03-02 13:06] LABS: Glucose,Whole Blood 160 mg/dL (75-99)
[2020-03-02] MEDS: SODIUM CHLORIDE 0.9% 1,000 ML IV SCH (13:22)
--- NOTE | 2020-03-02 15:43 | P.PN ---
Subjective Progress Note Date: 03/01/20 Principal diagnosis: Acute hypoxic respiratory failure probably secondary to pneumonia 64-year-old the male admitted for pneumonia bilateral, predominantly in the right lower lobes. There is a concern about aspiration patient has been vomiting. Patient does take a modified diet by mouth at home does have a PEG tube in place. Patient the antibiotics were changed to Zosyn which is appropriate. Patient went into respiratory distress on some requirements have gone up because of which patient was transferred to ICU later in the day patient started having A. fib with rapid ventricular rate because of which patient was started on Cardizem and cardiology was consulted. I'm also consulting speech therapy because of his swallowing issues to assess if her appropriate for the patient to be continued on modified diet by mouth. 02/29/2020 Patient is seen and evaluated in ICU sitting up in bedside chair; nursing staff at bedside; patient was successfully extubated yesterday and hasn't needed BiPAP support; SpO2 of 94% on 3 L Vital signs are reviewed and are stable; lab review shows blood work unremarkable; PTT of 49.4; hemoglobin at 10.5 Patient remains on IV heparin for atrial fibrillation Patient remains on IV Zosyn for his pneumonia Plan is to monitor patient in ICU for another 24 hours and continue heparin until safely transitioned to Eliquis 03/01/20, patient remains in the ICU; currently on 4 L nasal cannula He is on enteral feeding through a jejunostomy tube. Patient remains in atrial fibrillation and anticoagulated with IV heparin infusion; patient will be restarted on Coumadin and his first dose today will be 7.5 mg daily as dosed by district medical examiner service. Remains on Zosyn for aspiration pneumonia. Clinically the patient is doing much better over the last few days since he was extubated. Continue to increase activity with Physical therapy; ambulating to a bedside chair on a daily basis. Patient is stable to be transferred to selective care unit. Objective - Vital Signs Vital signs: Vital Signs Temp 97.4 F L 03/01/20 08:00 Pulse 122 H 03/01/20 11:55 Resp 23 03/01/20 10:00 BP 118/75 03/01/20 10:00 Pulse Ox 94 L 03/01/20 10:00 Intake & Output 02/29/20 03/01/20 03/01/20 18:59 06:59 18:59 Intake Total 1424 846 901 Output Total 1000 961 681 Balance 424 -115 220 Weight 65.5 kg 66.5 kg Intake: IV 374 156 91 0.9 Normal Saline as 54 36 21 pressure bag @ 3mL/hr Piperacillin-Tazobactam 3 100 .375 gm In Sodium Chloride 0.9% 100 ml @ 25 mls/hr IVPB Q8HR [facility]ER Rx# :[id number] Piperacillin-Tazobactam 3 100 .375 gm In Sodium Chloride 0.9% 100 ml @ 25 mls/hr IVPB Q8HR EDER Rx# :[id number] Sodium Chloride 0.9% 1, 120 120 70 000 ml @ 10 mls/hr IV . Q24H [facility]ER Rx#:[id number] Intake, IV Titration 250 250 Amount Heparin Sod,Pork in 0.45% 250 250 NaCl 25,000 unit In 0.45 % NaCl 1 250ml.bag @ 12 UNITS/KG/HR 7.92 mls/hr IV .Q24H [facility]ER Rx#: [id number] Tube Feeding 710 600 500 Other 90 90 60 Output: Urine 1000 960 680 Stool 1 1 Other: Voiding Method Indwelling Catheter Indwelling Catheter Indwelling Catheter # Bowel Movements 1 1 ABP, PAP, CO, CI - Last Documented Arterial Blood Pressure 126/65 - Exam GENERAL: Patient is intubated, off sedation and is awake HEENT: Pupils are round and equally reacting to light. EOMI. No scleral icterus. No conjunctival pallor. Normocephalic, atraumatic. No pharyngeal erythema. No thyromegaly. CARDIOVASCULAR: S1 and S2 present. No murmurs, rubs, or gallops. PULMONARY: Diffuse bilateral rhonchi and crackles bibasilar ABDOMEN: Soft, nontender, nondistended, normoactive bowel sounds. No palpable organomegaly. MUSCULOSKELETAL: No joint swelling or deformity. EXTREMITIES: No cyanosis, clubbing, or pedal edema. NEUROLOGICAL: Patient is awake and nodding head off sedation presently SKIN: No rashes. - Labs CBC & Chem 7: 03/02/20 04:00 03/02/20 04:00 Labs: Abnormal Lab Results - Last 24 Hours (Table) 02/29/20 02/29/20 03/01/20 Range/Units 19:20 23:27 04:20 RBC 3.62 L (4.30-5.90) m/uL Hgb 10.3 L (13.0-17.5) gm/dL Hct 32.7 L (39.0-53.0) % RDW 15.7 H (11.5-15.5) % APTT (22.0-30.0) sec Sodium (137-145) mmol/L Creatinine (0.66-1.25) mg/dL Glucose (74-99) mg/dL POC Glucose (mg/dL) 120 H 100 H (75-99) mg/dL Calcium (8.4-10.2) mg/dL 03/01/20 03/01/20 03/01/20 Range/Units 04:20 04:20 06:04 RBC (4.30-5.90) m/uL Hgb (13.0-17.5) gm/dL Hct (39.0-53.0) % RDW (11.5-15.5) % APTT 46.0 H (22.0-30.0) sec Sodium 135 L (137-145) mmol/L Creatinine 0.64 L (0.66-1.25) mg/dL Glucose 123 H (74-99) mg/dL POC Glucose (mg/dL) 108 H (75-99) mg/dL Calcium 8.1 L (8.4-10.2) mg/dL 03/01/20 Range/Units 11:38 RBC (4.30-5.90) m/uL Hgb (13.0-17.5) gm/dL Hct (39.0-53.0) % RDW (11.5-15.5) % APTT (22.0-30.0) sec Sodium (137-145) mmol/L Creatinine (0.66-1.25) mg/dL Glucose (74-99) mg/dL POC Glucose (mg/dL) 124 H (75-99) mg/dL Calcium (8.4-10.2) mg/dL Assessment and Plan Assessment: -Acute hypoxic respiratory failure secondary to pneumonia predominantly in the right. patient does have pleural effusions on both sides. Patient is on Zosyn at this time there is a concern for aspiration. Patient is presently intubated on assist-control ventilation please refer to pulmonology documentation for vent settings. patient is tolerating BiPAP very well . -Septic shock: Shock resolved patient is off norepinephrine -Paraxysmal Atrial fibrillation with rapid ventricular rate Patient is being switched to Eliquis. Patient is presently on amiodarone, off Cardizem. -gastroesophageal reflux disease, patient said J-tube feedings were reinitiated receiving tube feedings at or and patient has nosignificant output from the OG tube -Hypertension -benign prostatic hypertrophy -History of renal cancer and esophageal cancer with dysphagia and a J-tube . -History of cerebral aneurysm. -KAROL His overall prognosis is extremely poor
--- NOTE | 2020-03-02 15:46 | P.PN ---
Subjective Progress Note Date: 03/02/20 Principal diagnosis: Acute hypoxic respiratory failure probably secondary to pneumonia 64-year-old the male admitted for pneumonia bilateral, predominantly in the right lower lobes. There is a concern about aspiration patient has been vomiting. Patient does take a modified diet by mouth at home does have a PEG tube in place. Patient the antibiotics were changed to Zosyn which is appropriate. Patient went into respiratory distress on some requirements have gone up because of which patient was transferred to ICU later in the day patient started having A. fib with rapid ventricular rate because of which patient was started on Cardizem and cardiology was consulted. I'm also consulting speech therapy because of his swallowing issues to assess if her appropriate for the patient to be continued on modified diet by mouth. 02/29/2020 Patient is seen and evaluated in ICU sitting up in bedside chair; nursing staff at bedside; patient was successfully extubated yesterday and hasn't needed BiPAP support; SpO2 of 94% on 3 L Vital signs are reviewed and are stable; lab review shows blood work unremarkable; PTT of 49.4; hemoglobin at 10.5 Patient remains on IV heparin for atrial fibrillation Patient remains on IV Zosyn for his pneumonia Plan is to monitor patient in ICU for another 24 hours and continue heparin until safely transitioned to Eliquis 03/01/20, patient remains in the ICU; currently on 4 L nasal cannula He is on enteral feeding through a jejunostomy tube. Patient remains in atrial fibrillation and anticoagulated with IV heparin infusion; patient will be restarted on Coumadin and his first dose today will be 7.5 mg daily as dosed by press breaker service. Remains on Zosyn for aspiration pneumonia. Clinically the patient is doing much better over the last few days since he was extubated. Continue to increase activity with Physical therapy; ambulating to a bedside chair on a daily basis. Patient is stable to be transferred to selective care unit. 03/02/2020 Patient is seen and evaluated for follow-up in ICU; sitting in bedside chair and denies any chest pain or shortness of breath Vital signs remained stable with a temperature of 98, pulse 91, respiration 20 and blood pressure 101/83; SpO2 of 95% Lab review shows a white blood count of 15.3, hemoglobin of 11.4 and subtherapeutic INR of 1.3 Patient remains on IV heparin bridge to Coumadin which was started yesterday; continue with current IV antibiotics for aspiration pneumonia to further recommendations from press breaker service Continue with tube feedings via J-tube; tolerating well Patient will be transferred to selective care unit Objective - Vital Signs Vital signs: Vital Signs Temp 98.4 F 03/02/20 12:00 Pulse 94 03/02/20 14:00 Resp 22 03/02/20 14:00 BP 121/92 03/02/20 14:00 Pulse Ox 93 L 03/02/20 14:00 Intake & Output 03/01/20 03/02/20 03/02/20 18:59 06:59 18:59 Intake Total 1459 1106.674 537.5 Output Total 1166 775 405 Balance 293 331.674 132.5 Weight 67.5 kg Intake: IV 169 200 57.5 0.9 Normal Saline as 39 30 pressure bag @ 3mL/hr Sodium Chloride 0.9% 1, 130 70 20 000 ml @ 10 mls/hr IV . Q24H [facility] Rx#:[id number] zosyn 100 37.5 Intake, IV Titration 250 236.674 Amount Heparin Sod,Pork in 0.45% 250 236.674 NaCl 25,000 unit In 0.45 % NaCl 1 250ml.bag @ 12 UNITS/KG/HR 7.92 mls/hr IV .Q24H [facility]ER Rx#: [id number] Tube Feeding 950 550 450 Other 90 120 30 Output: Urine 1165 775 405 Stool 1 Other: Voiding Method Indwelling Catheter Indwelling Catheter Indwelling Catheter ABP, PAP, CO, CI - Last Documented Arterial Blood Pressure 97/54 - Exam GENERAL: Patient is intubated, off sedation and is awake HEENT: Pupils are round and equally reacting to light. EOMI. No scleral icterus. No conjunctival pallor. Normocephalic, atraumatic. No pharyngeal erythema. No thyromegaly. CARDIOVASCULAR: S1 and S2 present. No murmurs, rubs, or gallops. PULMONARY: Diffuse bilateral rhonchi and crackles bibasilar ABDOMEN: Soft, nontender, nondistended, normoactive bowel sounds. No palpable organomegaly. MUSCULOSKELETAL: No joint swelling or deformity. EXTREMITIES: No cyanosis, clubbing, or pedal edema. NEUROLOGICAL: Patient is awake and nodding head off sedation presently SKIN: No rashes. - Labs CBC & Chem 7: 03/02/20 04:00 03/02/20 04:00 Labs: Abnormal Lab Results - Last 24 Hours (Table) 03/01/20 03/01/20 03/02/20 Range/Units 18:10 23:28 04:00 WBC 15.3 H (3.8-10.6) k/uL RBC 3.93 L (4.30-5.90) m/uL Hgb 11.4 L (13.0-17.5) gm/dL Hct 35.7 L (39.0-53.0) % RDW 16.0 H (11.5-15.5) % PT (9.0-12.0) sec INR (<1.2) APTT (22.0-30.0) sec Sodium (137-145) mmol/L Creatinine (0.66-1.25) mg/dL Glucose (74-99) mg/dL POC Glucose (mg/dL) 119 H 108 H (75-99) mg/dL 03/02/20 03/02/20 03/02/20 Range/Units 04:00 04:00 04:00 WBC (3.8-10.6) k/uL RBC (4.30-5.90) m/uL Hgb (13.0-17.5) gm/dL Hct (39.0-53.0) % RDW (11.5-15.5) % PT 12.6 H (9.0-12.0) sec INR 1.3 H (<1.2) APTT 55.4 H (22.0-30.0) sec Sodium 135 L (137-145) mmol/L Creatinine 0.62 L (0.66-1.25) mg/dL Glucose 148 H (74-99) mg/dL POC Glucose (mg/dL) (75-99) mg/dL 03/02/20 03/02/20 Range/Units 06:15 13:04 WBC (3.8-10.6) k/uL RBC (4.30-5.90) m/uL Hgb (13.0-17.5) gm/dL Hct (39.0-53.0) % RDW (11.5-15.5) % PT (9.0-12.0) sec INR (<1.2) APTT (22.0-30.0) sec Sodium (137-145) mmol/L Creatinine (0.66-1.25) mg/dL Glucose (74-99) mg/dL POC Glucose (mg/dL) 117 H 160 H (75-99) mg/dL Assessment and Plan Assessment: -Acute hypoxic respiratory failure secondary to pneumonia predominantly in the right. patient does have pleural effusions on both sides. Patient is on Zosyn at this time there is a concern for aspiration. Patient is presently intubated on assist-control ventilation please refer to pulmonology documentation for vent settings. patient is tolerating BiPAP very well . -Septic shock: Shock resolved patient is off norepinephrine -Paraxysmal Atrial fibrillation with rapid ventricular rate Patient is being switched to Eliquis. Patient is presently on amiodarone, off Cardizem. -gastroesophageal reflux disease, patient said J-tube feedings were reinitiated receiving tube feedings at vt and patient has nosignificant output from the OG tube -Hypertension -benign prostatic hypertrophy -History of renal cancer and esophageal cancer with dysphagia and a J-tube . -History of cerebral aneurysm. -KAROL His overall prognosis is extremely poor
[2020-03-02 18:00] LABS: Glucose,Whole Blood 129 mg/dL (75-99)
[2020-03-02] MEDS: WARFARIN 7.5 MG TAB PO SCH (18:21)
[2020-03-02 20:07] LABS: Glucose,Whole Blood 103 mg/dL (75-99)
[2020-03-03 00:38] LABS: Glucose,Whole Blood 106 mg/dL (75-99)
[2020-03-03] MEDS: INSULIN ASPART (NovoLOG) 100 UNIT/ML VIAL SQ SCH ×4 (01:12→18:41)
[2020-03-03] MEDS ORDERED: FUROSEMIDE 10 MG/ML 4 ML VIAL ONE (04:46)
[2020-03-03 05:00] LABS: Glucose,Whole Blood 163 mg/dL (75-99)
[2020-03-03] MEDS ORDERED: DILTIAZEM 5 MG/ML 10 ML VIAL IV ONE (06:09)
[2020-03-03] MEDS ORDERED: DILTIAZEM 125 MG in SODIUM CHLORIDE 0.9% 100 ML IV SCH (06:09)
[2020-03-03 06:23] LABS: ABG Base Excess 3.2 mmol/L; ABG HCO3 28 mmol/L (21-25); ABG Oxygen Saturation 98.9 % (94-97); ABG PCO2 46 mmHg (35-45); ABG PH 7.39 (7.35-7.45); ABG PO2 285 mmHg (83-108); ABG TCO2 30 mmol/L (19-24); Allen Test Performed? Yes
[2020-03-03 06:29] LABS: Anisocytosis Slight; Basophils # (A) 0.1 k/uL (0-0.2); Basophils % (A) 0 %; Eosinophils % (A) 0 %; HCT 39.2 % (39.0-53.0); HGB 12.5 gm/dL (13.0-17.5); Lymphocytes # (A) 0.6 k/uL (1.0-4.8); Lymphocytes % (A) 2 %; MCH 28.9 pg (25.0-35.0); MCHC 31.8 g/dL (31.0-37.0); MCV 90.9 fL (80.0-100.0); Mean Platelet Volume 7.9; Monocytes % (A) 4 %; Neutrophils % (A) 92 %; Platelet Count 332 k/uL (150-450); RBC 4.31 m/uL (4.30-5.90); RDW 16.1 % (11.5-15.5); WBC 22.7 k/uL (3.8-10.6)
[2020-03-03 06:34] LABS: Partial Thromboplastin Time 30.2 sec (22.0-30.0); Prothrombin Time 19.2 sec (9.0-12.0)
[2020-03-03] MEDS ORDERED: NOREPINEPHRIN 4 MG-0.9% NS PMX 4 MG/250 ML ML IV ONE (06:40)
[2020-03-03] MEDS: NOREPINEPHRINE 4 MG in SODIUM CHLORIDE 0.9% 250 ML IV SCH ×3 (06:45→21:24)
[2020-03-03 07:09] LABS: African American GFR (CKD) >90 (>60 ml/min/1.73 sqM); Anion Gap 7 mmol/L; Blood Urea Nitrogen 22 mg/dL (9-20); Calcium 8.5 mg/dL (8.4-10.2); Carbon Dioxide 28 mmol/L (22-30); Chloride 102 mmol/L (98-107); Glucose 140 mg/dL (74-99); Non-African American GFR(CKD) >90 (>60 ml/min/1.73 sqM); Potassium 3.9 mmol/L (3.5-5.1); Sodium 137 mmol/L (137-145)
[2020-03-03 07:15] LABS: Anisocytosis Slight; HCT 36.5 % (39.0-53.0); HGB 11.5 gm/dL (13.0-17.5); MCH 28.4 pg (25.0-35.0); MCHC 31.4 g/dL (31.0-37.0); MCV 90.4 fL (80.0-100.0); Mean Platelet Volume 8.2; Platelet Count 437 k/uL (150-450); RBC 4.04 m/uL (4.30-5.90); RDW 16.1 % (11.5-15.5); WBC 27.1 k/uL (3.8-10.6)
[2020-03-03] MEDS: IPRATROPIUM-ALBUTEROL 3 ML NEB INHALATION SCH ×4 (07:20→20:27)
[2020-03-03] MEDS: METOCLOPRAMIDE 5 MG/ML 2 ML VIAL IVP SCH ×3 (08:16→18:41)
[2020-03-03] MEDS: PIPERACILLIN-TAZOBACTAM 3.375 GM in SODIUM CHLORIDE 0.9% 100 ML IVPB SCH (08:29)
[2020-03-03] MEDS: PANTOPRAZOLE 40 MG/10 ML VIAL IVP SCH (08:29)
--- NOTE | 2020-03-03 08:58 | XR ---
EXAM: XR Chest, 1 View CLINICAL HISTORY: Intubated TECHNIQUE: Frontal view of the chest. COMPARISON: 02/29/2020 IMPRESSION: ET tube terminates 5 cm from the javan. Feeding tube courses down around the distal esophagus and curls up above the diaphragm. It may be within a hiatal hernia. Unclear whether the tube is terminating exactly. Bilateral pleural effusions. Bibasilar opacities/edema.
[2020-03-03] MEDS: AMIODARONE 300 MG in DEXTROSE 5% IN WATER 250 ML IV SCH ×4 (09:52→18:25)
[2020-03-03] MEDS: NYSTATIN 100,000 UNIT/GM POWD 15 GM TOPICAL SCH ×2 (09:59→21:24)
[2020-03-03] MEDS: CHLORHEXIDINE GLUCONATE 15 ML CUP MUCOUS MEM SCH ×2 (09:59→20:31)
--- NOTE | 2020-03-03 10:36 | PN ---
PROGRESS NOTE ADDENDUM: Critical care time 33 minutes. MMFRANCESL / IJN: [id number] /
--- NOTE | 2020-03-03 10:45 | PN ---
PROGRESS NOTE This is a patient who was admitted way back on February 10 for pneumonia. He came to the ICU the following day 02/11. The patient when I last saw him was doing reasonably well. He does have a history of esophageal cancer and has had previous surgery for that including esophagectomy with gastric pull-through surgery. Unfortunately, because of respiratory failure, he was intubated on February 18 and extubated on 02/27. Apparently sometime last night or early this morning, an A-TEAM was called on the patient. He was found to have profound epistaxis, GI bleed and atrial fibrillation with RVR. He was reintubated on 03/03. He has been here now for 21 days. I just got off the phone with his . Currently, the patient is on the volume assist-control mode rate of 20, tidal volume 400, FiO2 of 55%, PEEP of 5. Blood gases show a pO2 of 285, a pCO2 of 46 and pH of 7.39. Those gases were done on 100%. He is on propofol at 50 mcg/kg per minute, norepinephrine at 9 mcg/minute and amiodarone 0.5 mg/minute. He is also getting saline at 10 mL an hour. Currently, the patient has multiple medical problems including acute hypoxemic respiratory failure, Klebsiella pneumoniae pneumonia, diastolic CHF, atrial fibrillation, esophageal cancer, status post J-tube placement, seizure disorder, brain aneurysm with previous rupture and residual left-sided weakness, seizure disorder, sleep apnea syndrome, general medical debility, and intubation with mechanical ventilation x2. Current vital signs are reviewed. Temperature is 97.8, heart rate is 151, respiratory rate 36, blood pressure 91/64 mean 73 and saturations are 98%. Currently appears quite tachypneic. Poorly responsive. He is currently on propofol. HEENT: Examination is grossly unremarkable. He does have an NG tube in place. The nose is clamped. He is having significant epistaxis. There is an orally placed endotracheal tube. NECK: Supple. Full range of motion. No adenopathy. CARDIOVASCULAR: Examination reveals tachycardia. Heart rate 151. It is irregular. He is in atrial fibrillation. Heart sounds are distant. LUNGS: Reveal diffuse coarse rhonchi. Breath sounds equal. ABDOMEN: Soft. No bowel sounds. EXTREMITIES: Intact. No edema. SKIN: Without rash. NEUROLOGIC: Examination could not be adequately assessed. LABORATORY DATA: Reviewed. White count 27.1, hemoglobin 11.5, hematocrit 36.5, platelet count 437,000. PT 19.2, INR 2, PTT is 30.2. Blood gases have been noted. Sodium 137, potassium 3.9, chloride 102, CO2 is 28, anion gap is 7. BUN and creatinine were 22 and 0.65. Microbiology shows evidence of Klebsiella pneumoniae from the sputum on February 19. There is also wound cultures from 02/23 showing Klebsiella pneumoniae. Chest x-ray from today shows an endotracheal tube 5 cm above the javan, and evidence of bilateral and bibasilar opacities with pleural effusions. CURRENT MEDICATIONS: Reviewed. In addition to what has been mentioned, the patient is on Tylenol, amiodarone, chlorhexidine, insulin, DuoNeb, magnesium replacement, Reglan, metoprolol, Narcan, norepinephrine, nystatin, Zofran, Protonix, phosphorus replacement, Zosyn, potassium replacement, propofol and warfarin. ASSESSMENT: 1. Acute hypoxemic respiratory failure, secondary to atrial fibrillation with RVR, GI bleed, and epistaxis, with re-intubation on March 03, 2020. 2. Previous episode of respiratory failure requiring intubation and mechanical ventilation, with intubation on February 18 and extubation on February 27. 3. Aspiration pneumonia. 4. Klebsiella pneumoniae pneumonia. 5. Acute diastolic congestive heart failure. 6. Atrial fibrillation with RVR. 7. Esophageal cancer, status post esophagectomy with gastric pull-through surgery. NG tube placement. 8. History of seizure disorder. 9. History of brain aneurysm, status post rupture with residual left-sided weakness. 10.Sleep apnea syndrome, noncompliant with CPAP. 11.General medical debility. 12.Hypotension. PLAN: The patient is currently in the ICU back on the ventilator. He apparently was discharged out of the unit yesterday. The patient has developed respiratory failure, worsened by atrial fibrillation with RVR, GI bleed, epistaxis. Currently, he is on the ventilator. I did speak to the patient's . I did explain to her that there was nothing more that could be done for this patient. We will continue to treat him with the current medication.. She may stop in to see him a bit later. The patient has been here in the hospital for 21 days. Currently on propofol at 50 mcg/kg per minute, norepinephrine at 9 mcg/minute, and amiodarone at 0.5 mg/minute. His heart rate is 150 beats per minute. Additional recommendations and suggestions are forthcoming. Prognosis is poor. No additional recommendations are made. He may need a central line. MMODL / IJN: [id number] /
[2020-03-03] MEDS ORDERED: CISATRACURIUM 2 MG/ML 5 ML VIAL IV ONE ×2 (11:23→11:27)
--- NOTE | 2020-03-03 11:36 | P.PN ---
Subjective Progress Note Date: 03/03/20 This is a 64-year-old gentleman admitted to the hospital with acute hypoxic respiratory failure. He has a known history of esophageal cancer, status post chemotherapy and NG tube placement, history of COPD, prior congestive cardiac failure. Patient was extubated yesterday, which she apparently tolerated well, however and 18 was called through the night, and patient was reintubated. The patient continues to be in and out of atrial fibrillation. He is also having runs of nonsustained ventricular tachycardia. He was initiated on IV Cardizem, we discontinued that this morning. We will merna nge his oral beta mirna and amiodarone 2 IV for the time being. Patient has a significant amount of blood in his NG tube this morning, we will hold the Coumadin. Blood pressure remains low, 106/58, 107/50. White blood cell count 22.7, hemoglobin 12.5, platelet count 332. INR today is 2.0. Sodium 137, potassium 3.9, BUN 22, creatinine 0.6, magnesium 1.9. Objective - Vital Signs Vital signs: Vital Signs Temp 97.8 F 03/03/20 08:00 Pulse 53 L 03/03/20 11:00 Resp 32 H 03/03/20 11:00 BP 84/52 03/03/20 11:00 Pulse Ox 98 03/03/20 11:00 Intake & Output 03/02/20 03/03/20 03/03/20 18:59 06:59 18:59 Intake Total 587.5 573.780 414.313 Output Total 405 300 805 Balance 182.5 273.780 -390.687 Weight 67.5 kg 67.5 kg Intake: IV 57.5 140 Sodium Chloride 0.9% 1, 20 40 000 ml @ 10 mls/hr IV . Q24H EDER Rx#:[id number] zosyn 37.5 100 Intake, IV Titration 323.780 274.313 Amount Diltiazem 125 mg In 0.833 Sodium Chloride 0.9% 100 ml @ 10 MG/HR 10 mls/hr IV .[id number] EDER Rx#: [id number] Heparin Sod,Pork in 0.45% 312.853 NaCl 25,000 unit In 0.45 % NaCl 1 250ml.bag @ 12 UNITS/KG/HR 7.92 mls/hr IV .Q24H EDER Rx#: [id number] Norepinephrine 4 mg In 0.643 199.354 Sodium Chloride 0.9% 250 ml @ 0.05 MCG/KG/MIN 12. 859 mls/hr IV .[id number] EDER Rx#:[id number] propofoL 1,000 mg In 9.451 74.959 Empty Bag 1 bag @ Titrate IV .Q0M EDER Rx#: [id number] Tube Feeding 500 250 Other 30 Output: Urine 405 300 805 Other: Voiding Method Indwelling Catheter Indwelling Catheter ABP, PAP, CO, CI - Last Documented Arterial Blood Pressure 99/51 - Exam PHYSICAL EXAMINATION: GENERAL: 64-year-old frail gentleman, on mechanical ventilation HEENT: Head is atraumatic, normocephalic. Pupils equal, round. Sclera anicteric. Conjunctiva are clear. Mucous membranes of the mouth are moist. Neck is supple. There is no elevated jugular venous pressure. Shunt noted in the sub-clavicle area on the right HEART EXAMINATION: Heart S1 and S2 irregularly irregular CHEST EXAMINATION: Lungs reveal scattered coarse rhonchi throughout. ABDOMEN: Soft, nontender. Bowel sounds are heard. No organomegaly noted. EXTREMITIES: 2+ peripheral pulses with no evidence of peripheral edema and no calf tenderness noted. NEUROLOGIC [patient is intubated, sedated - Labs CBC & Chem 7: 03/03/20 07:05 03/03/20 06:15 Labs: Abnormal Lab Results - Last 24 Hours (Table) 03/02/20 03/02/20 03/02/20 Range/Units 13:04 17:59 20:06 WBC (3.8-10.6) k/uL RBC (4.30-5.90) m/uL Hgb (13.0-17.5) gm/dL Hct (39.0-53.0) % RDW (11.5-15.5) % Neutrophils # (1.3-7.7) k/uL Lymphocytes # (1.0-4.8) k/uL PT (9.0-12.0) sec INR (<1.2) APTT (22.0-30.0) sec ABG pCO2 (35-45) mmHg ABG pO2 (83-108) mmHg ABG HCO3 (21-25) mmol/L ABG Total CO2 (19-24) mmol/L ABG O2 Saturation (94-97) % BUN (9-20) mg/dL Creatinine (0.66-1.25) mg/dL Glucose (74-99) mg/dL POC Glucose (mg/dL) 160 H 129 H 103 H (75-99) mg/dL 03/03/20 03/03/20 03/03/20 Range/Units 00:37 04:58 06:15 WBC 22.7 H (3.8-10.6) k/uL RBC (4.30-5.90) m/uL Hgb 12.5 L (13.0-17.5) gm/dL Hct (39.0-53.0) % RDW 16.1 H (11.5-15.5) % Neutrophils # 21.0 H (1.3-7.7) k/uL Lymphocytes # 0.6 L (1.0-4.8) k/uL PT (9.0-12.0) sec INR (<1.2) APTT (22.0-30.0) sec ABG pCO2 (35-45) mmHg ABG pO2 (83-108) mmHg ABG HCO3 (21-25) mmol/L ABG Total CO2 (19-24) mmol/L ABG O2 Saturation (94-97) % BUN (9-20) mg/dL Creatinine (0.66-1.25) mg/dL Glucose (74-99) mg/dL POC Glucose (mg/dL) 106 H 163 H (75-99) mg/dL 03/03/20 03/03/20 03/03/20 Range/Units 06:15 06:15 06:23 WBC (3.8-10.6) k/uL RBC (4.30-5.90) m/uL Hgb (13.0-17.5) gm/dL Hct (39.0-53.0) % RDW (11.5-15.5) % Neutrophils # (1.3-7.7) k/uL Lymphocytes # (1.0-4.8) k/uL PT 19.2 H (9.0-12.0) sec INR 2.0 H (<1.2) APTT 30.2 H (22.0-30.0) sec ABG pCO2 46 H (35-45) mmHg ABG pO2 285 H (83-108) mmHg ABG HCO3 28 H (21-25) mmol/L ABG Total CO2 30 H (19-24) mmol/L ABG O2 Saturation 98.9 H (94-97) % BUN 22 H (9-20) mg/dL Creatinine 0.65 L (0.66-1.25) mg/dL Glucose 140 H (74-99) mg/dL POC Glucose (mg/dL) (75-99) mg/dL 03/03/20 Range/Units 07:05 WBC 27.1 H (3.8-10.6) k/uL RBC 4.04 L (4.30-5.90) m/uL Hgb 11.5 L (13.0-17.5) gm/dL Hct 36.5 L (39.0-53.0) % RDW 16.1 H (11.5-15.5) % Neutrophils # (1.3-7.7) k/uL Lymphocytes # (1.0-4.8) k/uL PT (9.0-12.0) sec INR (<1.2) APTT (22.0-30.0) sec ABG pCO2 (35-45) mmHg ABG pO2 (83-108) mmHg ABG HCO3 (21-25) mmol/L ABG Total CO2 (19-24) mmol/L ABG O2 Saturation (94-97) % BUN (9-20) mg/dL Creatinine (0.66-1.25) mg/dL Glucose (74-99) mg/dL POC Glucose (mg/dL) (75-99) mg/dL Assessment and Plan Plan: Assessment and plan #1 acute hypoxic respiratory failure, secondary to pneumonia. Sputum positive for Klebsiella pneumonia #2 paroxysmal atrial fibrillation, on Coumadin for anticoagulation, INR 2.0 today #3 history of esophageal cancer #4 history of brain aneurysm and previous rupture with residual left-sided weakness #5 obstructive sleep apnea #6 intubated, on mechanical ventilation Plan We will discontinue the IV Cardizem drip, we will also discontinue the oral beta mirna and amiodarone at this time and exchange underwriting consultant to IV while the patient is intubated. We'll need to monitor the patient's blood pressure closely as he is running in the low 100s this morning. He is having paroxysmal atrial fibrillation and also runs of nonsustained ventricular tachycardia, the magnesium level was 1.9. Overall his prognosis is guarded, patient has been made a no code. DNP note has been reviewed, I agree with a documented findings and plan of care. Patient was seen and examined.
--- NOTE | 2020-03-03 12:10 | XR ---
EXAMINATION TYPE: XR chest 1V portable DATE OF EXAM: 03/03/2020 Comparison: 03/03/2020, earlier today Clinical History: 64-year-old male Central line placement Findings: ET tube is satisfactory. NG tube again noted to course to the left base. Left subclavian CVC tip at t he upper right atrium. Right-sided RADIATION CONTROL WORKER shunt catheter. Heart normal size. Continued hazy and focal bib asilar opacities. Impression: 1. New left subclavian CVC tip at the upper right atrium. 2. Otherwise, stable exam with bilateral pleural effusions and prominent adjacent atelectasis and/or consolidation. 3. NG tube tip remains at the left base, probably within a gastric pull through. Clinically correlate .
[2020-03-03] MEDS: POTASSIUM CHLORIDE 10 MEQ in WATER FOR INJECTION 1 100ML.BAG IVPB SCH ×2 (13:53→14:15)
[2020-03-03] MEDS: MAGNESIUM SULFATE-D5W PMX 1 GM in DEXTROSE/WATER 1 100ML.BAG IVPB SCH ×2 (13:54→15:50)
[2020-03-03 14:05] LABS: Glucose,Whole Blood 146 mg/dL (75-99)
[2020-03-03] MEDS: METOPROLOL TARTRATE 5 MG/5 ML VIAL IVP SCH ×2 (14:05→18:37)
[2020-03-03] MEDS: SODIUM CHLORIDE 0.9% 1,000 ML IV SCH (14:37)
[2020-03-03 15:38] LABS: Anisocytosis Slight; HCT 32.2 % (39.0-53.0); HGB 10.2 gm/dL (13.0-17.5); MCH 28.6 pg (25.0-35.0); MCHC 31.7 g/dL (31.0-37.0); MCV 90.4 fL (80.0-100.0); Mean Platelet Volume 8.3; Platelet Count 418 k/uL (150-450); RBC 3.56 m/uL (4.30-5.90); RDW 16.7 % (11.5-15.5); WBC 20.4 k/uL (3.8-10.6)
--- NOTE | 2020-03-03 15:41 | CDI ---
Documentation Clarification Form Date: 03/03/2020 03:15:43 PM From: Jacqueline Hernandez CCS, CCDS Admit Date: 02/11/2020 01:12:00 PM Patient Name: Umesh Jarquin Visit Number: [id number] Discharge Date: ATTENTION: The Clinical Documentation Specialists (CDI) and [facility] Coding Staff appreciate your assistance in clarifying documentation. Please respond to the clarification below the line at the bottom and electronically sign. The CDI & [facility] Coding staff will review the response and follow-up if needed. Please note: Queries are made part of the Legal Health Record. If you have any questions, please contact the author of this message via ITS. Dr. Beryl Márquez: Per the 03/01 & 03/02 Attending Progress Note: "Patient seems to be in good spirits, however he is extremely weak frail and cachectic." History/Risk Factors: Stomach Cancer status post chemotherapy, has J tube for feeding, Atrial Fibrillation, GERD, Hypertension, Pneumonia, Seizure Disorder, Sleep Apnea, Former smoker. Clinical Indicators: 64 yo male, presented to the ED via EMS on 02/10 with SOB & cough. Admitted with Community acquired pneumonia. On 02/11 the patient's respiratory status declined, R 36^, PO 94 on 5L high flow O2 w/intermittent BiPAP. Patient was intubated on 02/18 until 02/27. Difficult to wean with multiple failed attempts, PICC line placed on 02/28 & Tracheostomy was considered. Successfully extubated on 02/27, Trach was canceled. Patient went into respiratory failure again on 03/03 & was re-intubated. VS 02/10: T 98.5, P 101^, R 18 - 32^, BP 131/91, PO 96 - 91 4Lnc. LAB 02/10: WBC 13.5^, Neut 12.4^, PT 21.5^, INR 2.2^, BUN 27^, Cr 0.57*, Gluc 142^, Total Protein (7.9), Albumin (4.3). LAB 02/25: Total Protein 4.9, 02/27: 5.9*. 02/25: Ablumin 2.0*, 02/27: 2.5*. Dietitian Assessment 02/11: Enteral Nutrition, tube feeds. Poor nutrition intake, Ht 5ft 10 in, Pt is at 80% of ideal body weight: 75.296 kg. Dietitian Assessment 03/03: Tube feedings continued. Nutrition intake remains poor, difficulty swallowing, aspiration, Underweight, Stage II pressure ulcer right buttock, hospital acquired. Wt 67.5 kg, BMI: 21.3. 90% of ideal body weight. Treatment on admission: Enteral tube feeding via J Tube, IV fluid bolus 500 mls @ 999 mls/hr, IV Azithromycin, IV Rocephin, IV Cardizem Drip bolus. 02/11 IV Lasix, IV Zofran & Reglan, IV Zosyn, IV fluid bolus 1,000 mls @ 999 mls/hr, IV Kcl, IV Dextrose w/Amiodarone. 03/01 Extubated to 4L ne. 03/03: Reintubated, IV Propofol, IV Cardizem, IV Norepinephrine, IV Amiodarone, IV Mag Sulfate, IV Kcl, IV Nimbex, IV Lopressor. In your professional opinion, can you please clarify if these findings signify one of the following conditions? Mild Protein-Calorie Malnutrition Moderate Protein-Calorie Malnutrition Severe Protein-Calorie Malnutrition Other condition, please specify Unable to determine (Last Revision: November 2018) severe pro calorie malnutrition MTDD
--- NOTE | 2020-03-03 15:53 | CDI ---
Documentation Clarification Form Date: 03/03/2020 03:42:50 PM From: Jacqueline Hernandez CCS, CCDS Admit Date: 02/11/2020 01:12:00 PM Patient Name: Umesh Jarquin Visit Number: [id number] Discharge Date: ATTENTION: The Clinical Documentation Specialists (CDI) and [facility] Coding Staff appreciate your assistance in clarifying documentation. Please respond to the clarification below the line at the bottom and electronically sign. The CDI & [facility] Coding staff will review the response and follow-up if needed. Please note: Queries are made part of the Legal Health Record. If you have any questions, please contact the author of this message via ITS. Dr. Beryl Márquez: A pressure ulcer is documented in the Dietitian's Assessment on 02/25, 02/28 & 03/03 as Hospital Acquired Stage II pressure ulcer right buttock. There is no physician documentation regarding this pressure ulcer. History/Risk Factors: Esophageal Cancer status post chemotherapy with PEG tube, Atrial Fibrillation on Coumadin, Cerebral Aneurysm with IMPORT/EXPORT CLERK shunt, GERD, Hypertension, Pneumonia, Seizure Disorder, Sleep Apnea, Former smoker. Clinical Indicators: Presented to the ED on 02/10 with SOB, cough, intubated on 02/19 after episode of asystole requiring CPR, intubated. Extubated on 03/01, re- intubated on 03/03. Treatment on admission: IV Fluid bolus, IV Azithromycin, IV Rocephin & IV Cardizem for Atrial Fibrillation. Remains on IV Zosyn, IV Vanco, IV Amiodarone. 02/23 Nystatin BID. 02/25: Specialty bed. Elements for accurate and compliant documentation of an ulcer: *The location/laterality of the ulcer *Etiology (decubitus/pressure, diabetic, PVD) *Stage I-IV, Unstageable, Suspected Deep Tissue Injury (To the deepest stage) *If the ulcer was present at admission (POA) or occurred after admission In your professional opinion, can you please clarify the diagnosis, location, laterality and whether present on admission (POA): Stage 1 Pressure/Decubitus Ulcer (intact skin, non-blanching redness of local area) Stage 2 Pressure/Decubitus Ulcer (Partial thickness, loss of dermis, pink wound bed) Stage 3 Pressure/Decubitus Ulcer (Full thickness tissue loss) Stage 4 Pressure/Decubitus Ulcer (Full thickness tissue loss with exposed bone, tendon, or muscle. May have slough or eschar present) Unstageable Other condition, please specify Unable to determine Please indicate etiology of pressure ulcer (if known). (Last Revision: February 2017) Hospital Acquired Stage II pressure ulcer right buttock. MTDD
--- NOTE | 2020-03-03 16:06 | PCN ---
PROCEDURE NOTE PULMONARY/CRITICAL CARE PROCEDURE NOTE: PROCEDURE: Left subclavian triple-lumen catheter placement. PREOPERATIVE DIAGNOSIS: Administration of fluids and pressors. POSTOPERATIVE DIAGNOSIS: Administration of fluids and pressors. TRIPLE LUMEN CATHETER PLACEMENT: Indication: Hemodynamic monitoring/Intravenous access. Informed consent was obtained from the patient. A universal time-out was completed verifying correct patient, procedure, site, positioning, and implant(s) or special equipment if applicable. The patient was placed in a dependent position appropriate for triple lumen catheter placement based on the vein to be cannulated. The patient's left neck was prepped and draped in sterile fashion. 1% Lidocaine was used to anesthetize the surrounding skin area. A triple lumen 9F Cordis catheter was introduced into the left subclavian vein using Seldinger technique. The catheter was threaded smoothly over the guide wire and appropriate blood return was obtained. There was good blood return from all three ports. Each lumen of the catheter was evacuated of air and flushed with sterile saline. The catheter was then sutured in place to the skin and a sterile dressing applied. Perfusion to the extremity distal to the point of catheter insertion was checked and found to be adequate. The patient tolerated the procedure well. The tip of catheter was seen in the right atrium. A chest x-ray was ordered. The catheter was sutured in place and a sterile dressing was applied by the nurse. OPERATORS: 1. Dr. Wood. 2. Miracle Duncan. [id number] / CHLOÉ: [id number] /
[2020-03-03] MEDS ORDERED: WARFARIN 2 MG TAB PO SCH (18:00)
[2020-03-03 18:07] LABS: Glucose,Whole Blood 149 mg/dL (75-99)
--- NOTE | 2020-03-03 20:05 | P.PN ---
Subjective This is a 64 years old male with multiple medical problems has elected to stay in the ICU for aspiration pneumonia secondary to Klebsiella. He was in the ICU and moved to the general medical floor yesterday however R urine today patient developed respiratory distress and 18 was called, patient moved to the ICU. BiPAP and high flow nausea Did not resolve his problem and patient had to be intubated again. His hospital course also complicated by Joe. cali and RVR and cartilage team on the case. No significant history of esophageal cancer status post gastric pull-through. Patient currently lying in the ICU intubated and sedated. Also there was a suspicion of diastolic CHF however is proBNP is significantly elevated and was only 700. Vitals showing Tachypneic with a breathing rate 27-30, blood pressure 95/50, he is saturating 97% on mechanical ventilation with FiO2 of 50% Patient has leukocytosis of 20.4 K which is slightly trending down. Rest of the CBC is unremarkable. Hemoglobin 10.2.BNP looks stable. . Covid test is negative Review of system: N/a Active Medications Generic Name Dose Route Start Last Admin Trade Name Freq PRN Reason Stop Dose Admin Acetaminophen 650 mg 02/11/20 13:12 02/21/20 00:00 Acetaminophen Tab 325 Mg Tab PO 650 mg Q6HR PRN Administration Mild Pain or Fever > 100.5 Albuterol/Ipratropium 3 ml 02/12/20 12:00 03/03/20 15:40 Ipratropium-Albuterol 3 Ml Neb INHALATION 3 ml RT-QID EDER Administration Albuterol/Ipratropium 3 ml 02/12/20 10:35 Ipratropium-Albuterol 3 Ml Neb INHALATION RT-Q2H PRN Shortness Of Breath Or Wheezing Chlorhexidine Gluconate 15 ml 03/03/20 09:00 03/03/20 09:59 Chlorhexidine Gluconate 15 Ml Cup MUCOUS MEM 15 ml BID EDER Administration Sodium Chloride 1,000 mls @ 10 mls/hr 02/22/20 09:00 03/03/20 14:37 Saline 0.9% IV 10 mls/hr .Q24H EDER Administration Norepinephrine Bitartrate 4 mg 254 mls @ 12.859 mls/hr 03/03/20 07:00 03/03/20 18:48 / Sodium Chloride IV 0.13 mcg/kg/min .[id number] EDER 33.433 mls/hr Administration Protocol 0.05 MCG/KG/MIN Propofol 1,000 mg/ IV Solution 100 mls @ 0 mls/hr 03/03/20 05:10 03/03/20 15:57 IV 50 mcg/kg/min .Q0M EDER 20.25 mls/hr Administration Protocol Titrate Amiodarone HCl 300 mg/ 250 mls @ 25 mls/hr 03/03/20 09:00 03/03/20 18:25 Dextrose/Water IV 0.5 mg/min .Q10H EDER 25 mls/hr Administration 0.5 MG/MIN Insulin Aspart 0 unit 02/21/20 12:15 03/03/20 18:41 Insulin Aspart (Novolog) 100 Unit/Ml Vial SQ 1 unit Q6HR EDER Administration Protocol Metoclopramide HCl 10 mg 02/13/20 08:15 03/03/20 18:41 Metoclopramide 5 Mg/Ml 2 Ml Vial IVP 10 mg Q6HR EDER Administration Metoprolol Tartrate 2.5 mg 03/03/20 12:00 03/03/20 18:37 Metoprolol Tartrate 5 Mg/5 Ml Vial IVP Not Given Q6HR [facility] Miscellaneous Information 1 each 02/22/20 18:39 Potassium Replacement Protocol 1 Each Misc MISCELLANE DAILY PRN Per Protocol Protocol Miscellaneous Information 1 each 02/23/20 18:10 Phosphorus Replacement Protoco 1 Each Misc MISCELLANE DAILY PRN Per Protocol Protocol Naloxone HCl 0.2 mg 02/14/20 01:21 Naloxone 0.4 Mg/Ml 1 Ml Vial IV Q2M PRN Opioid Reversal Nystatin 1 applic 02/24/20 13:00 03/03/20 09:59 Nystatin 100,000 Unit/Gm Powd 15 Gm TOPICAL 1 applic BID EDER Administration Ondansetron HCl 4 mg 02/14/20 01:21 Ondansetron 4 Mg/2 Ml Vial IVP Q6HR PRN Nausea And Vomiting Pantoprazole Sodium 40 mg 02/12/20 09:00 03/03/20 08:29 Pantoprazole 40 Mg/10 Ml Vial IVP 40 mg DAILY EDER Administration Objective - Vital Signs Vital signs: Vital Signs Temp 98.2 F 03/03/20 16:00 Pulse 52 L 03/03/20 18:00 Resp 29 H 03/03/20 18:00 BP 95/50 03/03/20 18:00 Pulse Ox 97 03/03/20 18:00 Intake & Output 03/03/20 03/03/20 03/04/20 06:59 18:59 06:59 Intake Total 598.454 1656.066 Output Total 300 1025 Balance 273.780 307.066 Weight 67.5 kg Intake: IV 690 Magnesium Sulfate-D5w Pmx 200 1 gm In Dextrose/Water 1 100ml.bag @ 100 mls/hr IVPB Q1H EDER Rx#: [id number] Potassium Chloride 10 meq 200 In Water For Injection 1 100ml.bag @ 100 mls/hr IVPB Q1H EDER Rx#: [id number] Sodium Chloride 0.9% 1, 90 000 ml @ 10 mls/hr IV . Q24H EDER Rx#:[id number] zosyn 200 Intake, IV Titration 323.780 642.066 Amount Amiodarone 300 mg In 213.75 Dextrose 5% in Water 250 ml @ 0.5 MG/MIN 25 mls/hr IV .Q10H EDER Rx#: [id number] Diltiazem 125 mg In 0.833 Sodium Chloride 0.9% 100 ml @ 10 MG/HR 10 mls/hr IV .[id number] EDER Rx#: [id number] Heparin Sod,Pork in 0.45% 312.853 NaCl 25,000 unit In 0.45 % NaCl 1 250ml.bag @ 12 UNITS/KG/HR 7.92 mls/hr IV .Q24H EDER Rx#: [id number] Norepinephrine 4 mg In 0.643 253.357 Sodium Chloride 0.9% 250 ml @ 0.05 MCG/KG/MIN 12. 859 mls/hr IV .[id number] EDER Rx#:[id number] propofoL 1,000 mg In 9.451 174.959 Empty Bag 1 bag @ Titrate IV .Q0M EDER Rx#: [id number] Tube Feeding 250 Output: Urine 300 1025 Other: Voiding Method Indwelling Catheter Indwelling Catheter ABP, PAP, CO, CI - Last Documented Arterial Blood Pressure 55/48 - Exam -GENERAL: The patient is intubated and sedated HEENT: Pupils are round and equally reacting to light. EOMI. No scleral icterus. No conjunctival pallor. Normocephalic, atraumatic. No pharyngeal erythema. No thyromegaly. CARDIOVASCULAR: S1 and S2 present. No murmurs, rubs, or gallops. PULMONARY: Chest is clear to auscultation, no wheezing or crackles. ABDOMEN: Soft, nontender, nondistended, normoactive bowel sounds. No palpable organomegaly. MUSCULOSKELETAL: No joint swelling or deformity. EXTREMITIES: No cyanosis, clubbing, or pedal edema. NEUROLOGICAL: Gross neurological examination did not reveal any focal deficits. SKIN: No rashes. no petechiae. - Labs CBC & Chem 7: 03/03/20 15:15 03/03/20 06:15 Labs: Abnormal Lab Results - Last 24 Hours (Table) 03/02/20 03/03/20 03/03/20 Range/Units 20:06 00:37 04:58 WBC (3.8-10.6) k/uL RBC (4.30-5.90) m/uL Hgb (13.0-17.5) gm/dL Hct (39.0-53.0) % RDW (11.5-15.5) % Neutrophils # (1.3-7.7) k/uL Lymphocytes # (1.0-4.8) k/uL PT (9.0-12.0) sec INR (<1.2) APTT (22.0-30.0) sec ABG pCO2 (35-45) mmHg ABG pO2 (83-108) mmHg ABG HCO3 (21-25) mmol/L ABG Total CO2 (19-24) mmol/L ABG O2 Saturation (94-97) % BUN (9-20) mg/dL Creatinine (0.66-1.25) mg/dL Glucose (74-99) mg/dL POC Glucose (mg/dL) 103 H 106 H 163 H (75-99) mg/dL 03/03/20 03/03/20 03/03/20 Range/Units 06:15 06:15 06:15 WBC 22.7 H (3.8-10.6) k/uL RBC (4.30-5.90) m/uL Hgb 12.5 L (13.0-17.5) gm/dL Hct (39.0-53.0) % RDW 16.1 H (11.5-15.5) % Neutrophils # 21.0 H (1.3-7.7) k/uL Lymphocytes # 0.6 L (1.0-4.8) k/uL PT 19.2 H (9.0-12.0) sec INR 2.0 H (<1.2) APTT 30.2 H (22.0-30.0) sec ABG pCO2 (35-45) mmHg ABG pO2 (83-108) mmHg ABG HCO3 (21-25) mmol/L ABG Total CO2 (19-24) mmol/L ABG O2 Saturation (94-97) % BUN 22 H (9-20) mg/dL Creatinine 0.65 L (0.66-1.25) mg/dL Glucose 140 H (74-99) mg/dL POC Glucose (mg/dL) (75-99) mg/dL 03/03/20 03/03/20 03/03/20 Range/Units 06:23 07:05 14:03 WBC 27.1 H (3.8-10.6) k/uL RBC 4.04 L (4.30-5.90) m/uL Hgb 11.5 L (13.0-17.5) gm/dL Hct 36.5 L (39.0-53.0) % RDW 16.1 H (11.5-15.5) % Neutrophils # (1.3-7.7) k/uL Lymphocytes # (1.0-4.8) k/uL PT (9.0-12.0) sec INR (<1.2) APTT (22.0-30.0) sec ABG pCO2 46 H (35-45) mmHg ABG pO2 285 H (83-108) mmHg ABG HCO3 28 H (21-25) mmol/L ABG Total CO2 30 H (19-24) mmol/L ABG O2 Saturation 98.9 H (94-97) % BUN (9-20) mg/dL Creatinine (0.66-1.25) mg/dL Glucose (74-99) mg/dL POC Glucose (mg/dL) 146 H (75-99) mg/dL 10/19/20 10/19/20 Range/Units 15:15 18:04 WBC 20.4 H (3.8-10.6) k/uL RBC 3.56 L (4.30-5.90) m/uL Hgb 10.2 L (13.0-17.5) gm/dL Hct 32.2 L (39.0-53.0) % RDW 16.7 H (11.5-15.5) % Neutrophils # (1.3-7.7) k/uL Lymphocytes # (1.0-4.8) k/uL PT (9.0-12.0) sec INR (<1.2) APTT (22.0-30.0) sec ABG pCO2 (35-45) mmHg ABG pO2 (83-108) mmHg ABG HCO3 (21-25) mmol/L ABG Total CO2 (19-24) mmol/L ABG O2 Saturation (94-97) % BUN (9-20) mg/dL Creatinine (0.66-1.25) mg/dL Glucose (74-99) mg/dL POC Glucose (mg/dL) 149 H (75-99) mg/dL Microbiology - Last 24 Hours (Table) 03/03/20 09:20 Gram Stain - Preliminary Sputum Sputum Culture - Preliminary Assessment and Plan Assessment: Aspiration pneumonia secondary to Klebsiella Acute hypoxic respiratory failure needing mechanical ventilation status post intubation A. fib with RVR History of esophageal cancer status post gastric pull-through Low suspicions for diastolic CHF. Plan: This is a 64 years old male who presents with respiratory failure and pneumonia in view of his history of esophageal cancer. Continue with Zosyn. Patient isllowed by pulmonary/critical care service. Management and vent as per pulmonary team. Continue with Zosyn. Continue with warfarin and monitor INR Follow-up recommendation by pulmonary and critical care service. Cardiology service on the case Labs and medication were reviewed.. Continue same treatment. Continue with symptomatic treatment. Resume home medication. Monitor lytes and vitals. DVT and GI prophylaxis. Further recommendationsas per clinical course of the patient DVT prophylaxis: Coumadin GI Prophylaxis: Ppi Prognosis is guarded
[2020-03-03 23:19] LABS: Glucose,Whole Blood 110 mg/dL (75-99)
[2020-03-03 23:25] LABS: Anisocytosis Slight; HCT 30.5 % (39.0-53.0); HGB 9.8 gm/dL (13.0-17.5); Hypochromasia Slight; MCH 29.2 pg (25.0-35.0); MCV 91.3 fL (80.0-100.0); Mean Platelet Volume 8.3; Platelet Count 352 k/uL (150-450); RBC 3.34 m/uL (4.30-5.90); RDW 16.6 % (11.5-15.5)
[2020-03-04] MEDS: METOPROLOL TARTRATE 5 MG/5 ML VIAL IVP SCH ×4 (00:07→18:51)
[2020-03-04] MEDS: INSULIN ASPART (NovoLOG) 100 UNIT/ML VIAL SQ SCH ×5 (00:07→23:34)
[2020-03-04] MEDS: METOCLOPRAMIDE 5 MG/ML 2 ML VIAL IVP SCH ×5 (00:07→22:47)
[2020-03-04 04:27] LABS: Anisocytosis Slight; Basophils % (A) 0 %; Eosinophils # (A) 0.3 k/uL (0-0.7); Eosinophils % (A) 2 %; HCT 29.9 % (39.0-53.0); Hypochromasia Slight; Lymphocytes # (A) 1.2 k/uL (1.0-4.8); Lymphocytes % (A) 9 %; MCH 27.9 pg (25.0-35.0); MCHC 30.3 g/dL (31.0-37.0); MCV 92.3 fL (80.0-100.0); Mean Platelet Volume 7.6; Monocytes # (A) 0.7 k/uL (0-1.0); Monocytes % (A) 6 %; Neutrophils # (A) 10.3 k/uL (1.3-7.7); Neutrophils % (A) 82 %; Platelet Count 365 k/uL (150-450); RBC 3.24 m/uL (4.30-5.90); RDW 16.4 % (11.5-15.5); WBC 12.6 k/uL (3.8-10.6)
[2020-03-04 04:37] LABS: ALT 40 U/L (4-49); AST 23 U/L (17-59); African American GFR (CKD) >90 (>60 ml/min/1.73 sqM); Albumin 2.5 g/dL (3.5-5.0); Alkaline Phosphatase 88 U/L (38-126); Anion Gap 4 mmol/L; Blood Urea Nitrogen 22 mg/dL (9-20); Calcium 8.1 mg/dL (8.4-10.2); Carbon Dioxide 27 mmol/L (22-30); Chloride 103 mmol/L (98-107); Glucose 120 mg/dL (74-99); Non-African American GFR(CKD) >90 (>60 ml/min/1.73 sqM); Potassium 3.7 mmol/L (3.5-5.1); Sodium 134 mmol/L (137-145); Total Bilirubin 0.6 mg/dL (0.2-1.3); Total Protein 5.9 g/dL (6.3-8.2)
[2020-03-04 04:38] LABS: INR 2.5 (<1.2); Partial Thromboplastin Time 34.7 sec (22.0-30.0)
[2020-03-04] MEDS: AMIODARONE 300 MG in DEXTROSE 5% IN WATER 250 ML IV SCH ×4 (04:51→15:02)
[2020-03-04] MEDS ORDERED: POTASSIUM CHLORIDE 20 MEQ in WATER FOR INJECTION 1 100ML.BAG IVPB STA (04:56)
[2020-03-04 04:59] LABS: ABG Base Excess 3.9 mmol/L; ABG HCO3 28 mmol/L (21-25); ABG Oxygen Saturation 98.9 % (94-97); ABG PCO2 38 mmHg (35-45); ABG PH 7.47 (7.35-7.45); ABG PO2 176 mmHg (83-108); ABG TCO2 29 mmol/L (19-24); Allen Test Performed? Yes
[2020-03-04 05:52] LABS: Glucose,Whole Blood 114 mg/dL (75-99)
[2020-03-04] MEDS: IPRATROPIUM-ALBUTEROL 3 ML NEB INHALATION SCH ×4 (07:39→19:41)
[2020-03-04] MEDS ORDERED: PHYTONADIONE 10 MG in SODIUM CHLORIDE 0.9% 50 ML IVPB STA (08:36)
--- NOTE | 2020-03-04 09:03 | XR ---
"EXAMINATION TYPE: XR chest 1V portable DATE OF EXAM: 03/04/2020 CLINICAL HISTORY: Tube placement TECHNIQUE: Portable semiupright view of the chest COMPARISON: 03/03/2020 FINDINGS: Endotracheal tube is 0.5 cm the javan. Enteric tube is coiled over the cardiac silhouette with distal tip curving back up and overlying the mid chest. Left subclavian central venous catheter and right ventriculoperitoneal catheter redemonstrated. Moderate bilateral pleural effusions and bib asilar airspace opacities are mildly increased versus 03/03/2020. There is a small left apical pneumo thorax which is new. The soft tissues of the face overlie the right lung apex. IMPRESSION: 1. New small left apical pneumothorax. 2. Moderate bilateral pleural effusions and bilateral airspace opacities, mildly increased versus . 3. Enteric tube is coiled over the region of the gastric pull-through, with distal tip overlying the mid chest. A [place] critical message alert has been initiated for Franco Rayo MD~[id number] via the [employer] | Critical Results System on 03/04/2020 9:01 AM. This message alert has been sent to Franco Rayo MD~[id number] via the preferences provided by the clinician for the receipt of Radiology Critical Finding s. Message ID [id number]."
[2020-03-04] MEDS: PANTOPRAZOLE 40 MG/10 ML VIAL IVP SCH (09:35)
[2020-03-04] MEDS: CHLORHEXIDINE GLUCONATE 15 ML CUP MUCOUS MEM SCH ×2 (09:35→19:51)
[2020-03-04] MEDS: NYSTATIN 100,000 UNIT/GM POWD 15 GM TOPICAL SCH ×2 (09:36→19:51)
--- NOTE | 2020-03-04 09:51 | P.PN ---
Subjective Progress Note Date: 03/04/20 This is a 64-year-old gentleman admitted to the hospital with acute hypoxic respiratory failure. He has a known history of esophageal cancer, status post chemotherapy and NG tube placement, history of COPD, prior congestive cardiac failure. Patient was extubated yesterday, which she apparently tolerated well, however and 18 was called through the night, and patient was reintubated. The patient continues to be in and out of atrial fibrillation. He is also having runs of nonsustained ventricular tachycardia. He was initiated on IV Cardizem, we discontinued that this morning. We will merna nge his oral beta mirna and amiodarone 2 IV for the time being. Patient has a significant amount of blood in his NG tube this morning, we will hold the Coumadin. Blood pressure remains low, 106/58, 107/50. White blood cell count 22.7, hemoglobin 12.5, platelet count 332. INR today is 2.0. Sodium 137, potassium 3.9, BUN 22, creatinine 0.6, magnesium 1.9. 03/04/2020 Patient was seen and examined this morning, he continues to have significant blood and clots in his NG tube. In and out of atrial fibrillation, rate under better control overall today.blood pressure 100/60with a heart rate in the 60s, continues to be intubated. White blood cell count 12.6, hemoglobin 9.0, platelet count 365, INR 2.5 today. Sodium 134, potassium 3.7, BUN 22, creatinine 0.6.Dr. DEDRICK Posada did have a discussion with Dr. Heard this morning, patient will be given a dose of vitamin K to reverse his INR, understanding, that this is necessary in light of his bleeding.in that therefore patient is at increased risk of stroke. Objective - Vital Signs Vital signs: Vital Signs Temp 97.9 F 03/04/20 04:00 Pulse 68 03/04/20 07:50 Resp 22 03/04/20 07:00 BP 110/64 03/03/20 21:00 Pulse Ox 98 03/04/20 07:00 Intake & Output 03/03/20 03/04/20 03/04/20 18:59 06:59 18:59 Intake Total 1332.066 905.299 185.280 Output Total 1025 647 125 Balance 307.066 258.299 60.280 Weight 67.5 kg 59.5 kg Intake: IV 690 120 20 Magnesium Sulfate-D5w Pmx 200 1 gm In Dextrose/Water 1 100ml.bag @ 100 mls/hr IVPB Q1H EDER Rx#: [id number] Potassium Chloride 10 meq 200 In Water For Injection 1 100ml.bag @ 100 mls/hr IVPB Q1H EDER Rx#: [id number] Sodium Chloride 0.9% 1, 90 120 20 000 ml @ 10 mls/hr IV . Q24H EDER Rx#:[id number] zosyn 200 Intake, IV Titration 642.066 785.299 165.280 Amount Amiodarone 300 mg In 213.75 250 Dextrose 5% in Water 250 ml @ 0.5 MG/MIN 25 mls/hr IV .Q10H EDER Rx#: [id number] Norepinephrine 4 mg In 253.357 243.161 65.280 Sodium Chloride 0.9% 250 ml @ 0.05 MCG/KG/MIN 12. 859 mls/hr IV .[id number] EDER Rx#:[id number] Potassium Chloride 10 meq 100 In Water For Injection 1 100ml.bag @ 100 mls/hr IVPB Q1H EDER Rx#: [id number] propofoL 1,000 mg In 174.959 192.138 100 Empty Bag 1 bag @ Titrate IV .Q0M EDER Rx#: [id number] Output: Urine 1025 647 125 Other: Voiding Method Indwelling Catheter Indwelling Catheter ABP, PAP, CO, CI - Last Documented Arterial Blood Pressure 100/51 - Exam PHYSICAL EXAMINATION: GENERAL: 64-year-old frail gentleman, on mechanical ventilation HEENT: Head is atraumatic, normocephalic. Pupils equal, round. Sclera anicteric. Conjunctiva are clear. Mucous membranes of the mouth are moist. Neck is supple. There is no elevated jugular venous pressure. Shunt noted in the sub-clavicle area on the right HEART EXAMINATION: Heart S1 and S2 irregularly irregular CHEST EXAMINATION: Lungs reveal scattered coarse rhonchi throughout. ABDOMEN: Soft, nontender. Bowel sounds are heard. No organomegaly noted. EXTREMITIES: 2+ peripheral pulses with no evidence of peripheral edema and no calf tenderness noted. NEUROLOGIC [patient is intubated, sedated - Labs CBC & Chem 7: 03/04/20 04:00 03/04/20 04:00 Labs: Abnormal Lab Results - Last 24 Hours (Table) 03/03/20 03/03/20 03/03/20 Range/Units 14:03 15:15 18:04 WBC 20.4 H (3.8-10.6) k/uL RBC 3.56 L (4.30-5.90) m/uL Hgb 10.2 L (13.0-17.5) gm/dL Hct 32.2 L (39.0-53.0) % MCHC (31.0-37.0) g/dL RDW 16.7 H (11.5-15.5) % Neutrophils # (1.3-7.7) k/uL PT (9.0-12.0) sec INR (<1.2) APTT (22.0-30.0) sec ABG pH (7.35-7.45) ABG pO2 (83-108) mmHg ABG HCO3 (21-25) mmol/L ABG Total CO2 (19-24) mmol/L ABG O2 Saturation (94-97) % Sodium (137-145) mmol/L BUN (9-20) mg/dL Creatinine (0.66-1.25) mg/dL Glucose (74-99) mg/dL POC Glucose (mg/dL) 146 H 149 H (75-99) mg/dL Calcium (8.4-10.2) mg/dL Total Protein (6.3-8.2) g/dL Albumin (3.5-5.0) g/dL 03/03/20 03/03/20 03/04/20 Range/Units 23:15 23:17 04:00 WBC 16.0 H 12.6 H (3.8-10.6) k/uL RBC 3.34 L 3.24 L (4.30-5.90) m/uL Hgb 9.8 L 9.0 L (13.0-17.5) gm/dL Hct 30.5 L 29.9 L (39.0-53.0) % MCHC 30.3 L (31.0-37.0) g/dL RDW 16.6 H 16.4 H (11.5-15.5) % Neutrophils # 10.3 H (1.3-7.7) k/uL PT (9.0-12.0) sec INR (<1.2) APTT (22.0-30.0) sec ABG pH (7.35-7.45) ABG pO2 (83-108) mmHg ABG HCO3 (21-25) mmol/L ABG Total CO2 (19-24) mmol/L ABG O2 Saturation (94-97) % Sodium (137-145) mmol/L BUN (9-20) mg/dL Creatinine (0.66-1.25) mg/dL Glucose (74-99) mg/dL POC Glucose (mg/dL) 110 H (75-99) mg/dL Calcium (8.4-10.2) mg/dL Total Protein (6.3-8.2) g/dL Albumin (3.5-5.0) g/dL 03/04/20 03/04/20 03/04/20 Range/Units 04:00 04:00 04:55 WBC (3.8-10.6) k/uL RBC (4.30-5.90) m/uL Hgb (13.0-17.5) gm/dL Hct (39.0-53.0) % MCHC (31.0-37.0) g/dL RDW (11.5-15.5) % Neutrophils # (1.3-7.7) k/uL PT 24.0 H (9.0-12.0) sec INR 2.5 H (<1.2) APTT 34.7 H (22.0-30.0) sec ABG pH 7.47 H (7.35-7.45) ABG pO2 176 H (83-108) mmHg ABG HCO3 28 H (21-25) mmol/L ABG Total CO2 29 H (19-24) mmol/L ABG O2 Saturation 98.9 H (94-97) % Sodium 134 L (137-145) mmol/L BUN 22 H (9-20) mg/dL Creatinine 0.65 L (0.66-1.25) mg/dL Glucose 120 H (74-99) mg/dL POC Glucose (mg/dL) (75-99) mg/dL Calcium 8.1 L (8.4-10.2) mg/dL Total Protein 5.9 L (6.3-8.2) g/dL Albumin 2.5 L (3.5-5.0) g/dL 03/04/20 Range/Units 05:51 WBC (3.8-10.6) k/uL RBC (4.30-5.90) m/uL Hgb (13.0-17.5) gm/dL Hct (39.0-53.0) % MCHC (31.0-37.0) g/dL RDW (11.5-15.5) % Neutrophils # (1.3-7.7) k/uL PT (9.0-12.0) sec INR (<1.2) APTT (22.0-30.0) sec ABG pH (7.35-7.45) ABG pO2 (83-108) mmHg ABG HCO3 (21-25) mmol/L ABG Total CO2 (19-24) mmol/L ABG O2 Saturation (94-97) % Sodium (137-145) mmol/L BUN (9-20) mg/dL Creatinine (0.66-1.25) mg/dL Glucose (74-99) mg/dL POC Glucose (mg/dL) 114 H (75-99) mg/dL Calcium (8.4-10.2) mg/dL Total Protein (6.3-8.2) g/dL Albumin (3.5-5.0) g/dL Microbiology - Last 24 Hours (Table) 03/03/20 09:20 Gram Stain - Preliminary Sputum Sputum Culture - Preliminary Assessment and Plan Plan: Assessment and plan #1 acute hypoxic respiratory failure, secondary to pneumonia. Sputum positive for Klebsiella pneumonia #2 paroxysmal atrial fibrillation, on Coumadin for anticoagulation, INR 2.0 today #3 history of esophageal cancer #4 history of brain aneurysm and previous rupture with residual left-sided weakness #5 obstructive sleep apnea #6 intubated, on mechanical ventilation Plan From cardiology's perspective, we will continue current dose of IV amiodarone. Patient will receive a dose of vitamin K for reversal of his INR, in view of the fact the patient is still bleeding. Standing also that the risks for stroke is increased in the situation. Overall prognosis guarded. We will continue to follow. DNP note has been reviewed, I agree with a documented findings and plan of care. Patient was seen and examined.
--- NOTE | 2020-03-04 11:15 | PN ---
PROGRESS NOTE PULMONARY/CRITICAL CARE PROGRESS NOTE: DATE OF SERVICE: 03/04/2020 Critical care time 34 minutes. This is a 64-year-old gentleman who was admitted way back on February 10 for pneumonia. He was in the ICU on the following day 02/11. The patient was doing reasonably well the last time I saw him. He does have a previous history of esophageal cancer. He has had a previous esophagectomy with gastric pull-through surgery and also J-tube placement. The patient apparently was doing well and then eventually was transferred out of the ICU and then developed acute respiratory failure and required intubation on February 18 and then was finally extubated some 10 days later on February 27. Over this past weekend, early on the morning on Tuesday, the patient was apparently A-teamed. He was apparently found to have GI bleeding, atrial fibrillation with RVR, profound epistaxis and hypoxemic respiratory failure and was seen reintubated on March 03 early in the morning. The patient has been here now in the hospital for 22 days. I did have a conversation with his . Currently, he is on the volume assist- control mode rate of 20, tidal volume 400, FiO2 of 40%, PEEP of 5, blood gases on those same settings except 50% show a pO2 of 176, pCO2 of 38 and a pH of 7.47. The FiO2 was turned from 50%-40%. Currently not receiving any tube feeds. He is on saline at 10 mL an hour, propofol at 50 mcg/kg per minute, amiodarone at 0.5 mg/minute and norepinephrine at 2 mcg per minute. Today, we are going to have Ear, Nose and Throat see the patient for his ongoing epistaxis. Will talk to him at the same time about his tracheostomy. Finally, the patient will get vitamin K 10 mg. The patient was on Coumadin but currently is not on Coumadin but is still coagulopathic. Current vital signs are reviewed. Temperature is 97.9, heart rate 68, respiratory rate 22, blood pressure 100/51, CVP is 7, saturations are 98%. Currently sedated. No acute distress. There is an orally placed endotracheal tube and a nasally placed NG tube. HEENT: Examination is grossly unremarkable. There is bright red blood pouring out of the NG tube. Orally placed endotracheal tube is noted. NECK: Supple, full range of motion. No adenopathy. Neck veins are flat. CARDIOVASCULAR: Examination reveals regular rhythm and rate. Heart rate 68 beats per minute. S1, S2 normal. Heart sounds are distant. LUNGS: Reveal diffuse coarse bilateral rhonchi. Breath sounds equal. No wheezes or crackles. ABDOMEN: Soft. No bowel sounds. EXTREMITIES: Intact. No edema. SKIN: Without rash. NEUROLOGIC: Examination could not be adequately assessed. White count 12.6, hemoglobin 9, hematocrit 29.9, platelet count 365,000. PT 24, INR 2.5, PTT of 34.7. Blood gases have been noted. Sodium 134, potassium 3.7, chloride 103, CO2 is 27, anion gap is 4. BUN and creatinine were 22 and 0.65. The rest of the labs look pretty good. Microbiologic studies were positive for Cassie in the abdominal wound, Klebsiella in the sputum from February 19 and Klebsiella from the wound culture on February 23. The patient's most recent chest x-ray from this morning shows a possible new small left apical pneumothorax. There is moderate bilateral pleural effusions and bilateral airspace opacities. MEDICATIONS: Reviewed. Currently, the patient is on Tylenol, amiodarone, chlorhexidine, insulin, DuoNeb, Reglan, metoprolol, Narcan, norepinephrine, nystatin, Zofran, Protonix, phosphorus replacement, potassium replacement, and propofol. ASSESSMENT: 1. Acute hypoxemic respiratory failure secondary to atrial fibrillation and RVR, gastrointestinal bleed, and epistaxis, with re-intubation on March 03, 2020. 2. Previous episode of respiratory failure requiring intubation and mechanical ventilation with intubation on February 18 and successful extubation on February 27. 3. Chronic aspiration pneumonia. 4. Klebsiella pneumoniae pneumonia. 5. Acute diastolic congestive heart failure. 6. Atrial fibrillation with RVR. 7. Esophageal cancer, status post esophagectomy with gastric pull-through surgery and J-tube placement. 8. History of seizure disorder. 9. History of brain aneurysm, status post rupture with residual left-sided weakness. 10.Sleep apnea syndrome, noncompliant with CPAP. 11.General medical debility. 12.Hypotension. PLAN: The patient will be seen by Ear, Nose, and Throat today for the epistaxis. We gave the patient vitamin K to correct the coagulopathy caused by Coumadin. The patient remains on propofol amiodarone, and norepinephrine. FiO2 is dropped from 50%-40%. No tube feeds as yet. The patient is a DNR. Will talk to the about the possibility of tracheostomy. Additional recommendations and suggestions are forthcoming. In addition, apparently there is a small left apical pneumothorax which is new. That will be evaluated by myself. Decision about chest tube will be made at that time. Critical care time 34 minutes. MMODL / IJN: [id number] /
[2020-03-04 11:30] LABS: Glucose,Whole Blood 114 mg/dL (75-99)
[2020-03-04 11:39] LABS: Anisocytosis Slight; HCT 28.6 % (39.0-53.0); HGB 9.2 gm/dL (13.0-17.5); Hypochromasia Slight; MCH 29.5 pg (25.0-35.0); MCHC 32.3 g/dL (31.0-37.0); MCV 91.5 fL (80.0-100.0); Mean Platelet Volume 8.6; Platelet Count 317 k/uL (150-450); RBC 3.13 m/uL (4.30-5.90); RDW 16.4 % (11.5-15.5); WBC 11.2 k/uL (3.8-10.6)
[2020-03-04] MEDS: SODIUM CHLORIDE 0.9% 1,000 ML IV SCH (12:50)
[2020-03-04] MEDS ORDERED: METOPROLOL TARTRATE 5 MG/5 ML VIAL IVP ONE ×2 (12:55→14:20)
[2020-03-04] MEDS: NOREPINEPHRINE 4 MG in SODIUM CHLORIDE 0.9% 250 ML IV SCH (13:07)
[2020-03-04] MEDS: OXYMETAZOLINE 0.05% NASL SPRAY 1 SPRAY BOTTLE NASAL SCH ×2 (16:32→21:45)
[2020-03-04 18:12] LABS: Glucose,Whole Blood 126 mg/dL (75-99)
--- NOTE | 2020-03-04 21:28 | P.PN ---
Subjective This is a 64 years old male with multiple medical problems has elected to stay in the ICU for aspiration pneumonia secondary to Klebsiella. He was in the ICU and moved to the general medical floor yesterday however R urine today patient developed respiratory distress and 18 was called, patient moved to the ICU. BiPAP and high flow nausea Did not resolve his problem and patient had to be intubated again. His hospital course also complicated by A. fib and RVR and cartilage team on the case. No significant history of esophageal cancer status post gastric pull-through. Patient currently lying in the ICU intubated and sedated. Also there was a suspicion of diastolic CHF however is proBNP is significantly elevated and was only 700. Vitals showing Tachypneic with a breathing rate 27-30, blood pressure 95/50, he is saturating 97% on mechanical ventilation with FiO2 of 50% Patient has leukocytosis of 20.4 K which is slightly trending down. Rest of the CBC is unremarkable. Hemoglobin 10.2.BNP looks stable. . Covid test is negative 03/04/2020 Patient remains in the ICU in critical condition, is currently intubated on the he was able to move a little bit vertigo no significant we can trial was tried today. His still under pressure with norepinephrine at 0.06. We'll keep monitoring his hemoglobin. INR is 2.5, hemoglobin 9.2. Rest of labs looks stable Low potassium replaced ENT team were consulted for checklist replacement Chest x-ray showing small pneumothorax which is not much concerning Review of system: N/a Active Medications Generic Name Dose Route Start Last Admin Trade Name Freq PRN Reason Stop Dose Admin Acetaminophen 650 mg 02/11/20 13:12 02/21/20 00:00 Acetaminophen Tab 325 Mg Tab PO 650 mg Q6HR PRN Administration Mild Pain or Fever > 100.5 Albuterol/Ipratropium 3 ml 02/12/20 12:00 03/04/20 19:41 Ipratropium-Albuterol 3 Ml Neb INHALATION 3 ml RT-QID EDER Administration Albuterol/Ipratropium 3 ml 02/12/20 10:35 Ipratropium-Albuterol 3 Ml Neb INHALATION RT-Q2H PRN Shortness Of Breath Or Wheezing Chlorhexidine Gluconate 15 ml 03/03/20 09:00 03/04/20 19:51 Chlorhexidine Gluconate 15 Ml Cup MUCOUS MEM 15 ml BID EDER Administration Sodium Chloride 1,000 mls @ 10 mls/hr 02/22/20 09:00 03/04/20 12:50 Saline 0.9% IV 10 mls/hr .Q24H EDER Administration Norepinephrine Bitartrate 4 mg 254 mls @ 12.859 mls/hr 03/03/20 07:00 03/04/20 18:18 / Sodium Chloride IV 0.06 mcg/kg/min .[id number] EDER 15.431 mls/hr Titration Protocol 0.05 MCG/KG/MIN Propofol 1,000 mg/ IV Solution 100 mls @ 0 mls/hr 03/03/20 05:10 03/04/20 18:22 IV 50 mcg/kg/min .Q0M EDER 20.25 mls/hr Administration Protocol Titrate Amiodarone HCl 300 mg/ 250 mls @ 25 mls/hr 03/03/20 09:00 03/04/20 15:02 Dextrose/Water IV 0.5 mg/min .Q10H EDER 25 mls/hr Administration 0.5 MG/MIN Insulin Aspart 0 unit 02/21/20 12:15 03/04/20 18:14 Insulin Aspart (Novolog) 100 Unit/Ml Vial SQ Not Given Q6HR [facility] Protocol Metoclopramide HCl 10 mg 02/13/20 08:15 03/04/20 18:23 Metoclopramide 5 Mg/Ml 2 Ml Vial IVP 10 mg Q6HR EDER Administration Metoprolol Tartrate 2.5 mg 03/03/20 12:00 03/04/20 18:51 Metoprolol Tartrate 5 Mg/5 Ml Vial IVP Not Given Q6HR [facility] Miscellaneous Information 1 each 02/22/20 18:39 Potassium Replacement Protocol 1 Each Misc MISCELLANE DAILY PRN Per Protocol Protocol Miscellaneous Information 1 each 02/23/20 18:10 Phosphorus Replacement Protoco 1 Each Misc MISCELLANE DAILY PRN Per Protocol Protocol Naloxone HCl 0.2 mg 02/14/20 01:21 Naloxone 0.4 Mg/Ml 1 Ml Vial IV Q2M PRN Opioid Reversal Nystatin 1 applic 02/24/20 13:00 03/04/20 19:51 Nystatin 100,000 Unit/Gm Powd 15 Gm TOPICAL 1 applic BID EDER Administration Ondansetron HCl 4 mg 02/14/20 01:21 Ondansetron 4 Mg/2 Ml Vial IVP Q6HR PRN Nausea And Vomiting Oxymetazoline HCl 2 spray 03/04/20 16:00 03/04/20 16:32 Oxymetazoline 0.05% Nasl [place] 1 [place] Bottle NASAL 2 spray TID EDER Administration Pantoprazole Sodium 40 mg 02/12/20 09:00 03/04/20 09:35 Pantoprazole 40 Mg/10 Ml Vial IVP 40 mg DAILY EDER Administration Objective - Vital Signs Vital signs: Vital Signs Temp 97.9 F 03/04/20 04:00 Pulse 68 03/04/20 07:50 Resp 22 03/04/20 07:00 BP 110/64 03/03/20 21:00 Pulse Ox 98 03/04/20 07:00 Intake & Output 03/03/20 03/04/20 03/04/20 18:59 06:59 18:59 Intake Total 1332.066 905.299 186.352 Output Total 1025 647 125 Balance 307.066 258.299 61.352 Weight 67.5 kg 59.5 kg Intake: IV 690 120 20 Magnesium Sulfate-D5w Pmx 200 1 gm In Dextrose/Water 1 100ml.bag @ 100 mls/hr IVPB Q1H EDER Rx#: [id number] Potassium Chloride 10 meq 200 In Water For Injection 1 100ml.bag @ 100 mls/hr IVPB Q1H EDER Rx#: [id number] Sodium Chloride 0.9% 1, 90 120 20 000 ml @ 10 mls/hr IV . Q24H EDER Rx#:[id number] zosyn 200 Intake, IV Titration 642.066 785.299 166.352 Amount Amiodarone 300 mg In 213.75 250 Dextrose 5% in Water 250 ml @ 0.5 MG/MIN 25 mls/hr IV .Q10H EDER Rx#: [id number] Norepinephrine 4 mg In 253.357 243.161 66.352 Sodium Chloride 0.9% 250 ml @ 0.05 MCG/KG/MIN 12. 859 mls/hr IV .[id number] EDER Rx#:[id number] Potassium Chloride 10 meq 100 In Water For Injection 1 100ml.bag @ 100 mls/hr IVPB Q1H EDER Rx#: [id number] propofoL 1,000 mg In 174.959 192.138 100 Empty Bag 1 bag @ Titrate IV .Q0M [facility] Rx#: [id number] Output: Urine 1025 647 125 Other: Voiding Method Indwelling Catheter Indwelling Catheter ABP, PAP, CO, CI - Last Documented Arterial Blood Pressure 100/51 - Exam -GENERAL: The patient is intubated and sedated HEENT: Pupils are round and equally reacting to light. EOMI. No scleral icterus. No conjunctival pallor. Normocephalic, atraumatic. No pharyngeal erythema. No thyromegaly. CARDIOVASCULAR: S1 and S2 present. No murmurs, rubs, or gallops. PULMONARY: Chest is clear to auscultation, no wheezing or crackles. ABDOMEN: Soft, nontender, nondistended, normoactive bowel sounds. No palpable organomegaly. MUSCULOSKELETAL: No joint swelling or deformity. EXTREMITIES: No cyanosis, clubbing, or pedal edema. NEUROLOGICAL: Gross neurological examination did not reveal any focal deficits. SKIN: No rashes. no petechiae. - Labs CBC & Chem 7: 03/04/20 11:24 03/04/20 04:00 Labs: Abnormal Lab Results - Last 24 Hours (Table) 03/03/20 03/03/20 03/03/20 Range/Units 14:03 15:15 18:04 WBC 20.4 H (3.8-10.6) k/uL RBC 3.56 L (4.30-5.90) m/uL Hgb 10.2 L (13.0-17.5) gm/dL Hct 32.2 L (39.0-53.0) % MCHC (31.0-37.0) g/dL RDW 16.7 H (11.5-15.5) % Neutrophils # (1.3-7.7) k/uL PT (9.0-12.0) sec INR (<1.2) APTT (22.0-30.0) sec ABG pH (7.35-7.45) ABG pO2 (83-108) mmHg ABG HCO3 (21-25) mmol/L ABG Total CO2 (19-24) mmol/L ABG O2 Saturation (94-97) % Sodium (137-145) mmol/L BUN (9-20) mg/dL Creatinine (0.66-1.25) mg/dL Glucose (74-99) mg/dL POC Glucose (mg/dL) 146 H 149 H (75-99) mg/dL Calcium (8.4-10.2) mg/dL Total Protein (6.3-8.2) g/dL Albumin (3.5-5.0) g/dL 03/03/20 03/03/20 03/04/20 Range/Units 23:15 23:17 04:00 WBC 16.0 H 12.6 H (3.8-10.6) k/uL RBC 3.34 L 3.24 L (4.30-5.90) m/uL Hgb 9.8 L 9.0 L (13.0-17.5) gm/dL Hct 30.5 L 29.9 L (39.0-53.0) % MCHC 30.3 L (31.0-37.0) g/dL RDW 16.6 H 16.4 H (11.5-15.5) % Neutrophils # 10.3 H (1.3-7.7) k/uL PT (9.0-12.0) sec INR (<1.2) APTT (22.0-30.0) sec ABG pH (7.35-7.45) ABG pO2 (83-108) mmHg ABG HCO3 (21-25) mmol/L ABG Total CO2 (19-24) mmol/L ABG O2 Saturation (94-97) % Sodium (137-145) mmol/L BUN (9-20) mg/dL Creatinine (0.66-1.25) mg/dL Glucose (74-99) mg/dL POC Glucose (mg/dL) 110 H (75-99) mg/dL Calcium (8.4-10.2) mg/dL Total Protein (6.3-8.2) g/dL Albumin (3.5-5.0) g/dL 03/04/20 03/04/20 03/04/20 Range/Units 04:00 04:00 04:55 WBC (3.8-10.6) k/uL RBC (4.30-5.90) m/uL Hgb (13.0-17.5) gm/dL Hct (39.0-53.0) % MCHC (31.0-37.0) g/dL RDW (11.5-15.5) % Neutrophils # (1.3-7.7) k/uL PT 24.0 H (9.0-12.0) sec INR 2.5 H (<1.2) APTT 34.7 H (22.0-30.0) sec ABG pH 7.47 H (7.35-7.45) ABG pO2 176 H (83-108) mmHg ABG HCO3 28 H (21-25) mmol/L ABG Total CO2 29 H (19-24) mmol/L ABG O2 Saturation 98.9 H (94-97) % Sodium 134 L (137-145) mmol/L BUN 22 H (9-20) mg/dL Creatinine 0.65 L (0.66-1.25) mg/dL Glucose 120 H (74-99) mg/dL POC Glucose (mg/dL) (75-99) mg/dL Calcium 8.1 L (8.4-10.2) mg/dL Total Protein 5.9 L (6.3-8.2) g/dL Albumin 2.5 L (3.5-5.0) g/dL 03/04/20 Range/Units 05:51 WBC (3.8-10.6) k/uL RBC (4.30-5.90) m/uL Hgb (13.0-17.5) gm/dL Hct (39.0-53.0) % MCHC (31.0-37.0) g/dL RDW (11.5-15.5) % Neutrophils # (1.3-7.7) k/uL PT (9.0-12.0) sec INR (<1.2) APTT (22.0-30.0) sec ABG pH (7.35-7.45) ABG pO2 (83-108) mmHg ABG HCO3 (21-25) mmol/L ABG Total CO2 (19-24) mmol/L ABG O2 Saturation (94-97) % Sodium (137-145) mmol/L BUN (9-20) mg/dL Creatinine (0.66-1.25) mg/dL Glucose (74-99) mg/dL POC Glucose (mg/dL) 114 H (75-99) mg/dL Calcium (8.4-10.2) mg/dL Total Protein (6.3-8.2) g/dL Albumin (3.5-5.0) g/dL Microbiology - Last 24 Hours (Table) 03/03/20 09:20 Gram Stain - Preliminary Sputum Sputum Culture - Preliminary Assessment and Plan Assessment: Aspiration pneumonia secondary to Klebsiella Acute hypoxic respiratory failure needing mechanical ventilation status post intubation A. fib with RVR History of esophageal cancer status post gastric pull-through Low suspicions for diastolic CHF. Plan: This is a 64 years old male who presents with respiratory failure and pneumonia in view of his history of esophageal cancer. Continue with Zosyn. Patient isllowed by pulmonary/critical care service. Management and vent as per pulmonary team. Continue with Zosyn. Continue with warfarin and monitor INR Follow-up recommendation by pulmonary and critical care service. Cardiology service on the case Labs and medication were reviewed.. Continue same treatment. Continue with symptomatic treatment. Resume home medication. Monitor lytes and vitals. DVT and GI prophylaxis. Further recommendationsas per clinical course of the patient DVT prophylaxis: Coumadin GI Prophylaxis: Ppi Prognosis is guarded
[2020-03-04 23:33] LABS: Glucose,Whole Blood 111 mg/dL (75-99)
[2020-03-05] MEDS: METOPROLOL TARTRATE 5 MG/5 ML VIAL IVP SCH ×4 (00:52→18:42)
[2020-03-05] MEDS: AMIODARONE 300 MG in DEXTROSE 5% IN WATER 250 ML IV SCH ×6 (01:30→21:41)
[2020-03-05 05:20] LABS: Glucose,Whole Blood 107 mg/dL (75-99)
[2020-03-05 05:31] LABS: Anisocytosis Slight; Basophils # (A) 0.1 k/uL (0-0.2); Basophils % (A) 1 %; Eosinophils # (A) 0.4 k/uL (0-0.7); Eosinophils % (A) 6 %; HCT 28.7 % (39.0-53.0); Hypochromasia Slight; Lymphocytes # (A) 0.8 k/uL (1.0-4.8); Lymphocytes % (A) 12 %; MCH 28.9 pg (25.0-35.0); MCHC 31.3 g/dL (31.0-37.0); MCV 92.2 fL (80.0-100.0); Mean Platelet Volume 7.6; Monocytes # (A) 0.6 k/uL (0-1.0); Monocytes % (A) 8 %; Neutrophils # (A) 4.9 k/uL (1.3-7.7); Neutrophils % (A) 72 %; Platelet Count 304 k/uL (150-450); RBC 3.11 m/uL (4.30-5.90); RDW 16.5 % (11.5-15.5); WBC 6.9 k/uL (3.8-10.6)
[2020-03-05 05:36] LABS: INR 1.2 (<1.2); Prothrombin Time 12.1 sec (9.0-12.0)
[2020-03-05] MEDS: INSULIN ASPART (NovoLOG) 100 UNIT/ML VIAL SQ SCH ×3 (05:41→18:16)
[2020-03-05 05:50] LABS: ABG Base Excess 5.6 mmol/L; ABG HCO3 29 mmol/L (21-25); ABG Oxygen Saturation 99.2 % (94-97); ABG PCO2 40 mmHg (35-45); ABG PH 7.47 (7.35-7.45); ABG PO2 124 mmHg (83-108); ABG TCO2 30 mmol/L (19-24); Allen Test Performed? Yes
[2020-03-05] MEDS: NOREPINEPHRINE 4 MG in SODIUM CHLORIDE 0.9% 250 ML IV SCH (06:01)
[2020-03-05] MEDS: METOCLOPRAMIDE 5 MG/ML 2 ML VIAL IVP SCH ×3 (06:03→18:54)
[2020-03-05 06:14] LABS: African American GFR (CKD) >90 (>60 ml/min/1.73 sqM); Anion Gap 4 mmol/L; Blood Urea Nitrogen 14 mg/dL (9-20); Calcium 8.1 mg/dL (8.4-10.2); Carbon Dioxide 28 mmol/L (22-30); Chloride 104 mmol/L (98-107); Glucose 110 mg/dL (74-99); Non-African American GFR(CKD) >90 (>60 ml/min/1.73 sqM); Potassium 3.8 mmol/L (3.5-5.1); Sodium 136 mmol/L (137-145)
[2020-03-05] MEDS ORDERED: POTASSIUM CHLORIDE 20 MEQ in WATER FOR INJECTION 1 100ML.BAG IVPB ONE (08:00)
[2020-03-05] MEDS: IPRATROPIUM-ALBUTEROL 3 ML NEB INHALATION SCH ×4 (08:08→19:54)
[2020-03-05] MEDS ORDERED: VANCOMYCIN IV PER PHARMACY 1 EACH MISC MISCELLANE PRN (08:26)
[2020-03-05] MEDS ORDERED: CISATRACURIUM 2 MG/ML 5 ML VIAL IV ONE (08:34)
--- NOTE | 2020-03-05 08:42 | XR ---
EXAMINATION TYPE: XR chest 1V portable DATE OF EXAM: 03/05/2020 COMPARISON: Prior chest 03/04/2020, CT chest 02/18/2020 HISTORY: Intubated TECHNIQUE: Single frontal view of the chest is obtained. FINDINGS: Endotracheal tube is overlying the tracheal air column in appropriate position. Left subcl codey central venous catheter, orogastric tube are present in a similar position, gastric tube likely coiled within intrathoracic stomach. Small left apical pneumothorax persists. Bibasilar increased at tenuation is again seen, ventricular peritoneal shunt tubing is again seen over the right chest. Hear t size is stable. IMPRESSION: Correlating with patient's prior chest CT and abdomen CT, there was progression in the a bdominal contents extending into the lower chest. There is likely associated effusions, atelectasis, correlate for pneumonia. Persistent left apical pneumothorax.
--- NOTE | 2020-03-05 09:02 | P.PN ---
Subjective Progress Note Date: 03/05/20 This is a 64-year-old gentleman admitted to the hospital with acute hypoxic respiratory failure. He has a known history of esophageal cancer, status post chemotherapy and NG tube placement, history of COPD, prior congestive cardiac failure. Patient was extubated yesterday, which she apparently tolerated well, however and 18 was called through the night, and patient was reintubated. The patient continues to be in and out of atrial fibrillation. He is also having runs of nonsustained ventricular tachycardia. He was initiated on IV Cardizem, we discontinued that this morning. We will merna nge his oral beta mirna and amiodarone 2 IV for the time being. Patient has a significant amount of blood in his NG tube this morning, we will hold the Coumadin. Blood pressure remains low, 106/58, 107/50. White blood cell count 22.7, hemoglobin 12.5, platelet count 332. INR today is 2.0. Sodium 137, potassium 3.9, BUN 22, creatinine 0.6, magnesium 1.9. 03/04/2020 Patient was seen and examined this morning, he continues to have significant blood and clots in his NG tube. In and out of atrial fibrillation, rate under better control overall today.blood pressure 100/60with a heart rate in the 60s, continues to be intubated. White blood cell count 12.6, hemoglobin 9.0, platelet count 365, INR 2.5 today. Sodium 134, potassium 3.7, BUN 22, creatinine 0.6.Dr. DEDRICK Posada did have a discussion with Dr. Heard this morning, patient will be given a dose of vitamin K to reverse his INR, understanding, that this is necessary in light of his bleeding.in that therefore patient is at increased risk of stroke. 03/05/2020 The patient was seen and examined this morning, overall looking better. Continues to be intubated on mechanical support.his heart rate today is under better control. Yesterday afternoon the patient did require 3 extra doses of IV metoprolol for heart rate control. His blood pressure this morning 100/50, heart rate in the 50s.White blood cell count 6.9, hemoglobin 9.0, platelet count 304. INR today is 1.2. Patient is mostly remaining in normal sinus rhythm toleonor y. Continues to be on IV amiodarone drip at 0.5 and IV metoprolol. Objective - Vital Signs Vital signs: Vital Signs Temp 98.1 F 03/05/20 04:00 Pulse 57 L 03/05/20 08:18 Resp 20 03/05/20 08:06 BP 99/62 03/05/20 07:00 Pulse Ox 97 03/05/20 07:00 Intake & Output 03/04/20 03/05/20 03/05/20 18:59 06:59 18:59 Intake Total 979.599 665.750 64.443 Output Total 705 1110 100 Balance 274.599 -444.250 -35.557 Weight 59 kg Intake: IV 170 100 10 Phytonadione 10 mg In 50 Sodium Chloride 0.9% 50 ml @ 100 mls/hr IVPB ONCE STA Rx#:[id number] Sodium Chloride 0.9% 1, 120 100 10 000 ml @ 10 mls/hr IV . Q24H EDER Rx#:[id number] Intake, IV Titration 769.599 565.750 54.443 Amount Amiodarone 300 mg In 250 250 Dextrose 5% in Water 250 ml @ 0.5 MG/MIN 25 mls/hr IV .Q10H EDER Rx#: [id number] Norepinephrine 4 mg In 224.424 126.312 Sodium Chloride 0.9% 250 ml @ 0.05 MCG/KG/MIN 12. 859 mls/hr IV .[id number] EDER Rx#:[id number] propofoL 1,000 mg In 295.175 189.438 54.443 Empty Bag 1 bag @ Titrate IV .Q0M EDER Rx#: [id number] Oral 40 Output: Gastric Drainage 270 Urine 655 840 100 Emesis 50 Other: Voiding Method Indwelling Catheter Indwelling Catheter ABP, PAP, CO, CI - Last Documented Arterial Blood Pressure 100/52 - Exam PHYSICAL EXAMINATION: GENERAL: 64-year-old frail gentleman, on mechanical ventilation HEENT: Head is atraumatic, normocephalic. Pupils equal, round. Sclera anicteric. Conjunctiva are clear. Mucous membranes of the mouth are moist. Neck is supple. There is no elevated jugular venous pressure. Shunt noted in the sub-clavicle area on the right HEART EXAMINATION: Heart S1 and S2 irregularly irregular CHEST EXAMINATION: Lungs reveal scattered coarse rhonchi throughout. ABDOMEN: Soft, nontender. Bowel sounds are heard. No organomegaly noted. EXTREMITIES: 2+ peripheral pulses with no evidence of peripheral edema and no calf tenderness noted. NEUROLOGIC [patient is intubated, sedated - Labs CBC & Chem 7: 03/05/20 05:00 03/05/20 05:00 Labs: Abnormal Lab Results - Last 24 Hours (Table) 03/04/20 03/04/20 03/04/20 Range/Units 04:00 11:24 11:29 WBC 11.2 H (3.8-10.6) k/uL RBC 3.13 L (4.30-5.90) m/uL Hgb 9.2 L (13.0-17.5) gm/dL Hct 28.6 L (39.0-53.0) % RDW 16.4 H (11.5-15.5) % Lymphocytes # (1.0-4.8) k/uL PT (9.0-12.0) sec INR (<1.2) ABG pH (7.35-7.45) ABG pO2 (83-108) mmHg ABG HCO3 (21-25) mmol/L ABG Total CO2 (19-24) mmol/L ABG O2 Saturation (94-97) % Sodium (137-145) mmol/L Creatinine (0.66-1.25) mg/dL Glucose (74-99) mg/dL POC Glucose (mg/dL) 114 H (75-99) mg/dL Calcium (8.4-10.2) mg/dL Magnesium 2.4 H (1.6-2.3) mg/dL 03/04/20 03/04/20 03/05/20 Range/Units 18:10 23:25 05:00 WBC (3.8-10.6) k/uL RBC (4.30-5.90) m/uL Hgb (13.0-17.5) gm/dL Hct (39.0-53.0) % RDW (11.5-15.5) % Lymphocytes # (1.0-4.8) k/uL PT 12.1 H (9.0-12.0) sec INR 1.2 H (<1.2) ABG pH (7.35-7.45) ABG pO2 (83-108) mmHg ABG HCO3 (21-25) mmol/L ABG Total CO2 (19-24) mmol/L ABG O2 Saturation (94-97) % Sodium (137-145) mmol/L Creatinine (0.66-1.25) mg/dL Glucose (74-99) mg/dL POC Glucose (mg/dL) 126 H 111 H (75-99) mg/dL Calcium (8.4-10.2) mg/dL Magnesium (1.6-2.3) mg/dL 03/05/20 03/05/20 03/05/20 Range/Units 05:00 05:00 05:19 WBC (3.8-10.6) k/uL RBC 3.11 L (4.30-5.90) m/uL Hgb 9.0 L (13.0-17.5) gm/dL Hct 28.7 L (39.0-53.0) % RDW 16.5 H (11.5-15.5) % Lymphocytes # 0.8 L (1.0-4.8) k/uL PT (9.0-12.0) sec INR (<1.2) ABG pH (7.35-7.45) ABG pO2 (83-108) mmHg ABG HCO3 (21-25) mmol/L ABG Total CO2 (19-24) mmol/L ABG O2 Saturation (94-97) % Sodium 136 L (137-145) mmol/L Creatinine 0.63 L (0.66-1.25) mg/dL Glucose 110 H (74-99) mg/dL POC Glucose (mg/dL) 107 H (75-99) mg/dL Calcium 8.1 L (8.4-10.2) mg/dL Magnesium (1.6-2.3) mg/dL 03/05/20 Range/Units 05:47 WBC (3.8-10.6) k/uL RBC (4.30-5.90) m/uL Hgb (13.0-17.5) gm/dL Hct (39.0-53.0) % RDW (11.5-15.5) % Lymphocytes # (1.0-4.8) k/uL PT (9.0-12.0) sec INR (<1.2) ABG pH 7.47 H (7.35-7.45) ABG pO2 124 H (83-108) mmHg ABG HCO3 29 H (21-25) mmol/L ABG Total CO2 30 H (19-24) mmol/L ABG O2 Saturation 99.2 H (94-97) % Sodium (137-145) mmol/L Creatinine (0.66-1.25) mg/dL Glucose (74-99) mg/dL POC Glucose (mg/dL) (75-99) mg/dL Calcium (8.4-10.2) mg/dL Magnesium (1.6-2.3) mg/dL Microbiology - Last 24 Hours (Table) 03/03/20 09:20 Gram Stain - Preliminary Sputum Sputum Culture - Preliminary Presumptive Staph aureus Gram Neg Bacilli Assessment and Plan Plan: Assessment and plan #1 acute hypoxic respiratory failure, secondary to pneumonia. 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 DNP note has been reviewed, I agree with a documented findings and plan of care. Patient was seen and examined.
[2020-03-05] MEDS ORDERED: LIDOCAINE 1% INJ 10MG/ML (20 ML MDV) ONE ×3 (09:16→14:13)
--- NOTE | 2020-03-05 09:55 | XR ---
EXAMINATION TYPE: XR chest 1V portable DATE OF EXAM: 03/05/2020 COMPARISON: Prior chest x-ray 03/05/2020 HISTORY: Status post left chest tube placement TECHNIQUE: Single frontal view of the chest is obtained. FINDINGS: There is been interval placement of a left-sided chest tube. Small left apical pneumothora x is present. No other significant interval change. IMPRESSION: No evident complication status post chest tube placement.
--- NOTE | 2020-03-05 10:21 | CONS ---
CONSULTATION DATE OF CONSULTATION: 03/04/2020 REASON FOR CONSULTATION: 1. Epistaxis. 2. Possible tracheostomy candidate. HISTORY OF PRESENT ILLNESS: The patient is a 64-year-old male who has had multiple admissions to [facility] for various issues surrounding his esophageal cancer. The patient had surgery, radiation, and chemotherapy for esophageal carcinoma at [facility] in 2006. In addition to this, he had a previous tracheostomy. He also had surgery for renal carcinoma. This admission was due to the patient having issues with dyspnea, shortness of breath, cough, possible aspiration. He has a PEG tube present. He has been on a ventilator for over a week and at this point, there is discussion of a possible tracheostomy if the patient is going to be on a ventilator much longer. In addition to this recently during a surgical procedure, the anesthesia department placed an NG tube in the right nostril. The patient developed significant bleeding because of the placement of NG tube. An NG tube is in place at this time. The patient is not available for history and most of the history is gleaned from a combination of the patient's chart and the patient's . PAST MEDICAL HISTORY: This patient has no known allergies to medications.. HOME MEDICATIONS: Include Coumadin, Hytrin, Prilosec. . REVIEW OF SYSTEMS: Reveals that he has history of atrial fibrillation, hypertension, and COPD/emphysema. PHYSICAL EXAMINATION: Patient is normocephalic. Tympanic membranes are normal. Middle ear spaces are free of any fluid or infection. Pupils are equal, round, reactive to light and accommodation. Extraocular movements are within normal limits, as best as can be assessed in the patient who is partially sedated. Intranasal examination reveals the patient has moderate septal deviation to the left with compensatory hypertrophy of inferior turbinates bilaterally. In addition, this is an NG tube present in the right naris and there is old blood noted in the right nasal chamber. Examination of oropharynx reveals there is some clots noted in the posterior pharynx. I do not see evidence of any type of mucosal tear in the posterior pharynx, although the examination of the oropharynx is limited because the patient is intubated and has an endotracheal tube present blocking the view. The remainder of the head and neck exam is essentially unremarkable chest cardiovascular: Both lung otero are clear to percussion and auscultation. Patient is in regular sinus rhythm S1, S2 are present. No murmurs, S3s or S4s. The remainder of physical exam is unremarkable. IMPRESSION: Right epistaxis secondary to trauma. PLAN: I will have the nurses place 2 puffs of Afrin nasal spray in the right naris 3 times daily. Hopefully, this will vasoconstrictor any blood vessels that may be open in any mucosal tear in the nose. I suspect most of this patient's bleeding is from the nose. However, because the NG tube has to remain in place, I cannot put any packing in the patient's nose at this time. In addition, I would like to avoid placing any packing in the patient's nose because that only opens up more areas of bleeding. I agree that because this patient may have long-term issues with respect to using a ventilator and intubation that he is a candidate for a tracheostomy. I would hope to be able to do this on Tuesday of this week assuming the Anesthesia Department clears this patient. My understanding is that he may have a small pneumothorax and I am not sure whether or not that would cost issues with a general anesthetic. I do not do bedside tracheostomy tube. Therefore, it will have to be done in the operating room under general anesthesia. I would take this opportunity to thank you for allowing me to assist in the care of your patient. If I can be of any further assistance, please feel free to call my office. LYNNE / CHLOÉ: [id number] / CATINA
[2020-03-05] MEDS: OXYMETAZOLINE 0.05% NASL SPRAY 1 SPRAY BOTTLE NASAL SCH ×3 (10:42→21:42)
[2020-03-05] MEDS: NYSTATIN 100,000 UNIT/GM POWD 15 GM TOPICAL SCH ×2 (10:42→21:41)
[2020-03-05] MEDS: PANTOPRAZOLE 40 MG/10 ML VIAL IVP SCH (10:42)
[2020-03-05] MEDS: CHLORHEXIDINE GLUCONATE 15 ML CUP MUCOUS MEM SCH ×2 (10:42→21:51)
[2020-03-05] MEDS: PIPERACILLIN-TAZOBACTAM 3.375 GM in SODIUM CHLORIDE 0.9% 100 ML IVPB SCH ×2 (10:42→15:18)
[2020-03-05 10:46] VITALS: BMI 18.6
[2020-03-05 11:15] LABS: Reticulocyte % 3.1 % (0.5-2.0)
[2020-03-05] MEDS: VANCOMYCIN 1,000 MG in SODIUM CHLORIDE 0.9% 250 ML IVPB SCH ×2 (11:22→21:51)
--- NOTE | 2020-03-05 11:36 | PN ---
PROGRESS NOTE PULMONARY/CRITICAL CARE PROGRESS NOTE: DATE OF SERVICE: 03/05/2020 Critical care time is 33 minutes. A 64-year-old gentleman who was admitted way back on February 10 for pneumonia. He was in the ICU on the following day, February 11. The patient was doing reasonably well, the last time I saw him a couple weeks back. He had a previous history of esophageal cancer, status post esophagectomy with gastric pull through procedure as well as J-tube placement. The patient was doing well when I last saw had apparently developed acute respiratory failure on or about February 18, which required intubation and mechanical ventilation. He remained on the ventilator for about 10 days and was finally extubated on February 27 and over the weekend was sent out from the ICU to the general medical floor. At early on the morning on Tuesday, the patient was apparently A- TEAM. He was found to have epistaxis, GI bleed, atrial fibrillation with RVR, and just general instability with hypoxemic respiratory failure, was reintubated on March 03 early in the morning. The patient has been on the ventilator again since that time. Anyway, he is on the volume assist-control mode, rate of 20, tidal volume 400, FiO2 of 35%, PEEP of 5. The blood gases show PO2 of 124, pCO2 of 39 and pH of 7.47. He is on norepinephrine 2.3 mcg/minute, amiodarone at 0.5 mg/minute, propofol 40 mcg/kg per minute and saline at 10 mL an hour. His sputum is showing both presumptive Staph and gram-negative bacilli. He is restarted on vancomycin and Zosyn. He may end up having a tracheostomy on Tuesday. I did talk to the patient's , Dedra. Current vital signs are reviewed. Temperature is 98.1, heart rate 65, respiratory rate 20, blood pressure 100/62, CVP is 8, saturations are 97% on 40% FiO2. Appears in no acute distress. HEENT: Examination is grossly unremarkable. There is an orally placed endotracheal tube. There is an NG tube in place nasally. NECK: Supple, full range of motion. No adenopathy. Neck veins are flat. CARDIOVASCULAR: Examination reveals regular rhythm and rate. Heart rate mid 60s. S1, S2 normal. LUNGS: Reveal diminished breath sounds throughout. There are some bilateral coarse rhonchi. No wheezes. A few scattered crackles. ABDOMEN: Soft. No bowel sounds. EXTREMITIES: Intact. Minimal edema. SKIN: Without rash. NEUROLOGIC: Examination could not be adequately assessed as the patient is currently on propofol. LABS: Reviewed. White count 6.9, hemoglobin 9, hematocrit 28.7, platelet count 304, 000. PT, INR was 12.1 and 1.2. Blood gases have been noted. Sodium 136, potassium 3.8, chloride is 104, CO2 is 28, anion gap is 4. BUN and creatinine were 14 and 0.63. Microbiology showing Cassie albicans in the wound from February 13, Klebsiella pneumoniae in the sputum from February 19, Cassie albicans and Klebsiella pneumoniae from a wound culture on February 23 and on March 03, the sputum shows evidence of presumptive Staph aureus and gram-negative bacilli. Hence, the addition of vancomycin and Zosyn. Chest x-ray from 03/05 shows proper placement of the left-sided chest tube. There is evidence of bilateral pleural effusions. The prior chest x-ray from this morning shows progression in the abdominal contents extending into the lower chest cavity. Dr. Hanna did call me about this. CURRENT MEDICATIONS: Reviewed. Currently, he is on Tylenol, amiodarone, chlorhexidine, 1 dose of Nimbex, insulin, DuoNeb, Reglan, metoprolol, Narcan, norepinephrine, nystatin, Zofran, Afrin nasal spray, Protonix, phosphorus replacement therapy, Zosyn, potassium replacement, propofol and vancomycin. ASSESSMENT: 1. Acute hypoxemic respiratory failure secondary to atrial fibrillation and RVR, GI bleed, and profound epistaxis, with re-intubation on March 03, 2020. 2. Prior episode of respiratory failure requiring intubation, mechanical ventilation with intubation on 02/18 and successful extubation on February 27. 3. Chronic aspiration pneumonia. 4. Klebsiella pneumoniae pneumonia. 5. Acute diastolic congestive heart failure. 6. Atrial fibrillation with RVR. 7. Esophageal cancer, status post esophagectomy with gastric pull-through surgery and JT placement. 8. History of seizure disorder. 9. History of brain injury, status post rupture with residual left-sided weakness. 10.Sleep apnea syndrome, noncompliant with CPAP. 11.General medical debility. 12.Persistent hypotension, likely related to sepsis. 13.Recent sputum culture showing evidence of presumptive Staph and possible gram- negative bacilli. PLAN: The patient was restarted on vancomycin and Zosyn. The patient will be seen by surgery for possible tracheostomy on Tuesday. The FiO2 is dropped from 35%-30%. The patient remains on norepinephrine for blood pressure support, amiodarone, and propofol. Additional recommendations and suggestions are forthcoming. Prognosis is guarded. Will continue to follow. Critical care time 33 minutes. LYNNE / KEMARN: [id number] /
[2020-03-05 11:42] LABS: Glucose,Whole Blood 98 mg/dL (75-99)
[2020-03-05 11:59] LABS: Magnesium 2.3 mg/dL (1.6-2.3); Phosphorus 3.8 mg/dL (2.5-4.5)
[2020-03-05] MEDS ORDERED: MVI, ADULT NO.4 WITH VIT K 10 ML, TRACE (CONC-1ML/DOSE) 1 ML in AMINO ACID 5%-D15W+LYTE... IV SCH ×3 (13:00)
[2020-03-05] MEDS: SODIUM CHLORIDE 0.9% 1,000 ML IV SCH (14:14)
[2020-03-05] MEDS ORDERED: LIDOCAINE 1% INJ 10MG/ML (20 ML MDV) SQ ONE (14:35)
--- NOTE | 2020-03-05 15:11 | XR ---
EXAMINATION TYPE: XR chest 1V portable DATE OF EXAM: 03/05/2020 COMPARISON: chest x-ray same dated earlier time HISTORY: Status post PICC line placement TECHNIQUE: Single frontal view of the chest is obtained. FINDINGS: There is been interval placement of a left-sided PICC line. Distal tip is coursing to the level of the cavoatrial junction. Left-sided pneumothorax is minimal. IMPRESSION: No evident complication status post PICC line placement
--- NOTE | 2020-03-05 15:24 | IR ---
EXAMINATION TYPE: IR cvc insert >=5 years DATE OF EXAM: 03/05/2020 COMPARISON: NONE HISTORY: Needs long-term intravenous access for total parenteral nutrition FINDINGS: Maximal barrier technique was utilized. Hand hygiene obtained with soap and water and alco hol-based hand rub. The skin overlying the brachial vein was localized with ultrasound and noted to b e compressible and patent by ultrasound. An ultrasound image was obtained and submitted on patient's chart. Sterile technique utilized with the ultrasound machine. The skin overlying was prepped and dr marcum and Lidocaine used for local anesthesia. A skin nancy was made with a scalpel. Access was gaine d to the vein under direct ultrasound guidance with a 21-gauge needle and a 0.018 inch wire was IForem. Access site was dilated with a peel-away sheath and the catheter tailored to length. Catheter advanced centrally and a post procedure chest x-ray verified placement the tip at the cavoatrial junc tion. Catheter was fixed to the skin and a sterile dressing placed. Hemostasis achieved and the cat heter was aspirated and flushed with sterile saline. The patient remained in stable condition. IMPRESSION: STATUS POST ULTRASOUND GUIDED PICC LINE PLACEMENT, READY FOR USE. THIS PROCEDURE WAS PER FORMED BY THE UNDERSIGNED.
--- NOTE | 2020-03-05 15:24 | PCN ---
PROCEDURE NOTE DATE OF PROCEDURE: 03/05/2020 PROCEDURE: Left-sided chest tube placement. PREOPERATIVE DIAGNOSIS: Left pneumothorax. POSTOPERATIVE DIAGNOSIS: Left pneumothorax. PROCEDURE DESCRIPTION: A #28-Irish chest tube was placed in the left pleural space. The patient tolerated procedure well. The tube was placed between the anterior and mid axillary line and the fifth intercostal space. There was no immediate complication. About 1000 mL of yellow pleural fluid was evacuated from the left pleural space. The chest tube was sutured in place. A sterile dressing was applied. The chest tube was connected to a Pleur-evac. It was placed on suction. There was no immediate complication. A follow-up chest x- ray was ordered. MMODL / IJN: [id number] /
--- NOTE | 2020-03-05 15:26 | P.PN ---
<Sheila Roman - Last Filed: 03/05/20 15:17> Subjective Progress Note Date: 03/05/20 CHIEF COMPLAINT: respiratory failure HISTORY OF PRESENT ILLNESS: Patient has a known history of esophageal cancer with gastric pull-through procedure as well as a J-tube placement. Patient had developed acute respiratory failure in February 18 and required intubation and mechanical ventilation. And was successful Foleyextubated on February 27. Initially we were consulted during that period of time for possible trach placement however, patient was extubated. Patient was able to be transferred out of the ICU. And then apparently went back into respiratory distress. He was found to have epistaxis, GI bleed, atrial fibrillation with rapid ventricular response and hypoxic respiratory failure. He was reintubated on February 21. Patient is currently in the ICU and on mechanical ventilation. Dr. Suarez has been re-consulted for possible tracheostomy placement. Also note that ENT services on consult for tracheostomy placement. It appears that ENT will be placing tracheostomy on Tuesday. PHYSICAL EXAM: VITAL SIGNS: Reviewed. GENERAL: Well-developed in no acute distress. HEENT: No sclera icterus. Extraocular movements grossly intact. Moist buccal mucosa. Head is atraumatic, normocephalic. ABDOMEN: Soft. Nondistended. Nontender. J-tube site clean dry and intact. NG tube in place with blood noted. NEUROLOGIC: Patient is intubated and sedated. ASSESSMENT: 1. Acute hypoxic respiratory failure Secondary to atrial fibrillation with rapid ventricular response, GI bleed And profound epistaxis. Patient requiring to be reintubated 2. History of esophageal cancer 3. Aspiration pneumonia PLAN: -Defer tracheostomy to ENT service Physician Care Transition Manager note has been reviewed by physician. Signing provider agrees with the documented findings, assessment, and plan of care. Objective - Vital Signs Vital signs: Vital Signs Temp 97.6 F 03/05/20 12:00 Pulse 64 03/05/20 15:00 Resp 20 03/05/20 15:00 BP 89/57 03/05/20 14:15 Pulse Ox 96 03/05/20 15:00 Intake & Output 03/04/20 03/05/20 03/05/20 18:59 06:59 18:59 Intake Total 979.599 665.750 909.163 Output Total 705 1110 1345 Balance 274.599 -444.250 -435.837 Weight 59 kg 59 kg Intake: IV 170 100 540 Phytonadione 10 mg In 50 Sodium Chloride 0.9% 50 ml @ 100 mls/hr IVPB ONCE STA Rx#:[id number] Piperacillin-Tazobactam 3 100 .375 gm In Sodium Chloride 0.9% 100 ml @ 25 mls/hr IVPB Q8HR [facility] Rx# :[id number] Potassium Chloride 20 meq 100 In Water For Injection 1 100ml.bag @ 50 mls/hr IVPB ONCE ONE Rx#: [id number] Sodium Chloride 0.9% 1, 120 100 90 000 ml @ 10 mls/hr IV . Q24H [facility] Rx#:[id number] Vancomycin 1,000 mg In 250 Sodium Chloride 0.9% 250 ml @ 125 mls/hr IVPB Q12H [facility] Rx#:[id number] Intake, IV Titration 769.599 565.750 369.163 Amount Amiodarone 300 mg In 250 250 238.75 Dextrose 5% in Water 250 ml @ 0.5 MG/MIN 25 mls/hr IV .Q10H [facility] Rx#: [id number] Norepinephrine 4 mg In 224.424 126.312 59.922 Sodium Chloride 0.9% 250 ml @ 0.05 MCG/KG/MIN 12. 859 mls/hr IV .[id number] [facility] Rx#:[id number] propofoL 1,000 mg In 295.175 189.438 70.491 Empty Bag 1 bag @ Titrate IV .Q0M [facility] Rx#: [id number] Oral 40 Output: Chest Tube Drainage 780 Chest Tube Left Lateral 780 Chest Gastric Drainage 270 Urine 655 840 565 Emesis 50 Other: Voiding Method Indwelling Catheter Indwelling Catheter ABP, PAP, CO, CI - Last Documented Arterial Blood Pressure 120/59 - Labs CBC & Chem 7: 03/05/20 05:00 03/05/20 05:00 Labs: Abnormal Lab Results - Last 24 Hours (Table) 03/04/20 03/04/20 03/04/20 Range/Units 04:00 18:10 23:25 RBC (4.30-5.90) m/uL Hgb (13.0-17.5) gm/dL Hct (39.0-53.0) % RDW (11.5-15.5) % Lymphocytes # (1.0-4.8) k/uL Retic Count (0.5-2.0) % PT (9.0-12.0) sec INR (<1.2) ABG pH (7.35-7.45) ABG pO2 (83-108) mmHg ABG HCO3 (21-25) mmol/L ABG Total CO2 (19-24) mmol/L ABG O2 Saturation (94-97) % Sodium (137-145) mmol/L Creatinine (0.66-1.25) mg/dL Glucose (74-99) mg/dL POC Glucose (mg/dL) 126 H 111 H (75-99) mg/dL Calcium (8.4-10.2) mg/dL Magnesium 2.4 H (1.6-2.3) mg/dL 03/05/20 03/05/20 03/05/20 Range/Units 05:00 05:00 05:00 RBC 3.11 L (4.30-5.90) m/uL Hgb 9.0 L (13.0-17.5) gm/dL Hct 28.7 L (39.0-53.0) % RDW 16.5 H (11.5-15.5) % Lymphocytes # 0.8 L (1.0-4.8) k/uL Retic Count (0.5-2.0) % PT 12.1 H (9.0-12.0) sec INR 1.2 H (<1.2) ABG pH (7.35-7.45) ABG pO2 (83-108) mmHg ABG HCO3 (21-25) mmol/L ABG Total CO2 (19-24) mmol/L ABG O2 Saturation (94-97) % Sodium 136 L (137-145) mmol/L Creatinine 0.63 L (0.66-1.25) mg/dL Glucose 110 H (74-99) mg/dL POC Glucose (mg/dL) (75-99) mg/dL Calcium 8.1 L (8.4-10.2) mg/dL Magnesium (1.6-2.3) mg/dL 03/05/20 03/05/20 03/05/20 Range/Units 05:00 05:19 05:47 RBC (4.30-5.90) m/uL Hgb (13.0-17.5) gm/dL Hct (39.0-53.0) % RDW (11.5-15.5) % Lymphocytes # (1.0-4.8) k/uL Retic Count 3.1 H (0.5-2.0) % PT (9.0-12.0) sec INR (<1.2) ABG pH 7.47 H (7.35-7.45) ABG pO2 124 H (83-108) mmHg ABG HCO3 29 H (21-25) mmol/L ABG Total CO2 30 H (19-24) mmol/L ABG O2 Saturation 99.2 H (94-97) % Sodium (137-145) mmol/L Creatinine (0.66-1.25) mg/dL Glucose (74-99) mg/dL POC Glucose (mg/dL) 107 H (75-99) mg/dL Calcium (8.4-10.2) mg/dL Magnesium (1.6-2.3) mg/dL Microbiology - Last 24 Hours (Table) 03/03/20 09:20 Gram Stain - Final Sputum Sputum Culture - Final Methicillin resist S. aureus Klebsiella pneumoniae <Vitor Suarez - Last Filed: 03/05/20 19:02> Subjective As above. Patient placed back on the ventilator over the weekend. Patient had episodes of epistaxis and after nasogastric tube placement output was bloody and right her in appearance. Now there is more of a black colored gastric aspirate present. Spoke to radiology. The degree of herniation through the diaphragmatic hiatus has definitely increased between the October and February CAT scan. This certainly is contributing to the patient's recurrent episodes of aspiration. 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 Patient has been having some episodes of hypotension. If clinically stable and the patient's desires would recommend transfer for their opinion on appropriate management of the patient's recurrent aspiration, suspected gastric outlet obstruction, and diaphragmatic hernia. Objective - Vital Signs Vital signs: Vital Signs Temp 97.8 F 03/05/20 16:00 Pulse 70 03/05/20 18:15 Resp 22 03/05/20 18:15 BP 102/68 03/05/20 18:15 Pulse Ox 95 03/05/20 18:15 Intake & Output 03/05/20 03/05/20 03/06/20 06:59 18:59 06:59 Intake Total 351.816 2332.678 Output Total 1110 2155 Balance -444.250 -1096.322 Weight 59 kg 59 kg Intake: IV 100 580 Piperacillin-Tazobactam 3 100 .375 gm In Sodium Chloride 0.9% 100 ml @ 25 mls/hr IVPB Q8HR [facility] Rx# :[id number] Potassium Chloride 20 meq 100 In Water For Injection 1 100ml.bag @ 50 mls/hr IVPB ONCE ONE Rx#: [id number] Sodium Chloride 0.9% 1, 100 130 000 ml @ 10 mls/hr IV . Q24H [facility] Rx#:[id number] Vancomycin 1,000 mg In 250 Sodium Chloride 0.9% 250 ml @ 125 mls/hr IVPB Q12H [facility] Rx#:[id number] Intake, IV Titration 565.750 478.678 Amount Amiodarone 300 mg In 250 238.75 Dextrose 5% in Water 250 ml @ 0.5 MG/MIN 25 mls/hr IV .Q10H [facility] Rx#: [id number] Norepinephrine 4 mg In 126.312 69.437 Sodium Chloride 0.9% 250 ml @ 0.05 MCG/KG/MIN 12. 859 mls/hr IV .[id number] [facility] Rx#:[id number] propofoL 1,000 mg In 189.438 170.491 Empty Bag 1 bag @ Titrate IV .Q0M [facility] Rx#: [id number] Output: Chest Tube Drainage 920 Chest Tube Left Lateral 920 Chest Gastric Drainage 270 400 Urine 840 835 Other: Voiding Method Indwelling Catheter Indwelling Catheter ABP, PAP, CO, CI - Last Documented Arterial Blood Pressure 83/56 - Labs CBC & Chem 7: 03/05/20 05:00 03/05/20 15:30 Labs: Abnormal Lab Results - Last 24 Hours (Table) 03/04/20 03/04/20 03/05/20 Range/Units 04:00 23:25 05:00 RBC (4.30-5.90) m/uL Hgb (13.0-17.5) gm/dL Hct (39.0-53.0) % RDW (11.5-15.5) % Lymphocytes # (1.0-4.8) k/uL Retic Count (0.5-2.0) % PT 12.1 H (9.0-12.0) sec INR 1.2 H (<1.2) ABG pH (7.35-7.45) ABG pO2 (83-108) mmHg ABG HCO3 (21-25) mmol/L ABG Total CO2 (19-24) mmol/L ABG O2 Saturation (94-97) % Sodium (137-145) mmol/L Potassium (3.5-5.1) mmol/L Creatinine (0.66-1.25) mg/dL Glucose (74-99) mg/dL POC Glucose (mg/dL) 111 H (75-99) mg/dL Calcium (8.4-10.2) mg/dL Magnesium 2.4 H (1.6-2.3) mg/dL 03/05/20 03/05/20 03/05/20 Range/Units 05:00 05:00 05:00 RBC 3.11 L (4.30-5.90) m/uL Hgb 9.0 L (13.0-17.5) gm/dL Hct 28.7 L (39.0-53.0) % RDW 16.5 H (11.5-15.5) % Lymphocytes # 0.8 L (1.0-4.8) k/uL Retic Count 3.1 H (0.5-2.0) % PT (9.0-12.0) sec INR (<1.2) ABG pH (7.35-7.45) ABG pO2 (83-108) mmHg ABG HCO3 (21-25) mmol/L ABG Total CO2 (19-24) mmol/L ABG O2 Saturation (94-97) % Sodium 136 L (137-145) mmol/L Potassium (3.5-5.1) mmol/L Creatinine 0.63 L (0.66-1.25) mg/dL Glucose 110 H (74-99) mg/dL POC Glucose (mg/dL) (75-99) mg/dL Calcium 8.1 L (8.4-10.2) mg/dL Magnesium (1.6-2.3) mg/dL 03/05/20 03/05/20 03/05/20 Range/Units 05:19 05:47 15:30 RBC (4.30-5.90) m/uL Hgb (13.0-17.5) gm/dL Hct (39.0-53.0) % RDW (11.5-15.5) % Lymphocytes # (1.0-4.8) k/uL Retic Count (0.5-2.0) % PT (9.0-12.0) sec INR (<1.2) ABG pH 7.47 H (7.35-7.45) ABG pO2 124 H (83-108) mmHg ABG HCO3 29 H (21-25) mmol/L ABG Total CO2 30 H (19-24) mmol/L ABG O2 Saturation 99.2 H (94-97) % Sodium (137-145) mmol/L Potassium 5.3 H (3.5-5.1) mmol/L Creatinine (0.66-1.25) mg/dL Glucose (74-99) mg/dL POC Glucose (mg/dL) 107 H (75-99) mg/dL Calcium (8.4-10.2) mg/dL Magnesium (1.6-2.3) mg/dL 03/05/20 Range/Units 18:11 RBC (4.30-5.90) m/uL Hgb (13.0-17.5) gm/dL Hct (39.0-53.0) % RDW (11.5-15.5) % Lymphocytes # (1.0-4.8) k/uL Retic Count (0.5-2.0) % PT (9.0-12.0) sec INR (<1.2) ABG pH (7.35-7.45) ABG pO2 (83-108) mmHg ABG HCO3 (21-25) mmol/L ABG Total CO2 (19-24) mmol/L ABG O2 Saturation (94-97) % Sodium (137-145) mmol/L Potassium (3.5-5.1) mmol/L Creatinine (0.66-1.25) mg/dL Glucose (74-99) mg/dL POC Glucose (mg/dL) 115 H (75-99) mg/dL Calcium (8.4-10.2) mg/dL Magnesium (1.6-2.3) mg/dL Microbiology - Last 24 Hours (Table) 03/03/20 09:20 Gram Stain - Final Sputum Sputum Culture - Final Methicillin resist S. aureus Klebsiella pneumoniae Assessment and Plan (1) Jejunostomy tube leak Current Visit: Yes Status: Acute Code(s): K94.13 - ENTEROSTOMY MALFUNCTION SNOMED Code(s): 951245895
[2020-03-05 18:13] LABS: Glucose,Whole Blood 115 mg/dL (75-99)
[2020-03-05 21:53] LABS: Ferritin 154.4 ng/mL (22.0-322.0)
[2020-03-05 21:54] LABS: Folate, Serum 9.9 ng/mL
[2020-03-05 22:05] LABS: % Iron Saturation 9.34 (15.00-50.00)
[2020-03-06] MEDS: METOPROLOL TARTRATE 5 MG/5 ML VIAL IVP SCH ×2 (01:20→06:32)
[2020-03-06] MEDS: PIPERACILLIN-TAZOBACTAM 3.375 GM in SODIUM CHLORIDE 0.9% 100 ML IVPB SCH ×2 (01:20→08:26)
[2020-03-06] MEDS: METOCLOPRAMIDE 5 MG/ML 2 ML VIAL IVP SCH ×2 (01:28→06:43)
[2020-03-06 01:32] LABS: Glucose,Whole Blood 119 mg/dL (75-99)
[2020-03-06] MEDS: INSULIN ASPART (NovoLOG) 100 UNIT/ML VIAL SQ SCH ×2 (01:37→06:44)
[2020-03-06 04:54] LABS: ABG Base Excess 5.6 mmol/L; ABG HCO3 29 mmol/L (21-25); ABG Oxygen Saturation 98.4 % (94-97); ABG PCO2 39 mmHg (35-45); ABG PH 7.48 (7.35-7.45); ABG PO2 98 mmHg (83-108); ABG TCO2 30 mmol/L (19-24); Allen Test Performed? Yes
[2020-03-06 05:11] VITALS: BP 109/63
[2020-03-06 05:38] LABS: African American GFR (CKD) >90 (>60 ml/min/1.73 sqM); Non-African American GFR(CKD) >90 (>60 ml/min/1.73 sqM); Phosphorus 3.6 mg/dL (2.5-4.5)
[2020-03-06 06:43] LABS: Glucose,Whole Blood 136 mg/dL (75-99)
--- NOTE | 2020-03-06 07:10 | P.CONS ---
History of Present Illness - Reason for Consult Consult date: 03/05/20 Blood from NG tube Requesting physician: Bruno Wood - Chief Complaint Cough, shortness of breath - History of Present Illness 64-year-old male with multiple medical comorbidities including esophageal cancer status post gastric pull-through NG tube placement who presented to the hospital with cough and shortness of breath. Patient has had a complicated course requiring intubation and is currently receiving treatment in the ICU for aspiration pneumonia with cultures positive for Klebsiella. Patient has also required treatments during her hospitalization for atrial fibrillation with RVR and is being seen by the cardiology service. He has a history of esophageal cancer treated initially with radiation and chemotherapy and subsequently underwent a gastric pull-through procedure at [facility]. Patient also had J-tube placement with the surgical service at [facility]. Gastroenterology was consulted to see the patient due to concerns over bloody output from the nasogastric tube which was placed in the ICU. He patient has had recurrent episodes of epistaxis which is been exacerbated by anticoagulation therapy in the past. After NG tube placement approximately 2 L of bloody output were noted. Currently he is being evaluated by the surgical service for possible tracheostomy placement. INR was therapeutic at 2.5 and improved at 1.2 after receiving vitamin K. Patient also has chest tube with serosanguineous open noted. Lab evaluation significant for WBC 6.9, hemoglobin 9.0 which is remaining stable, platelet count 304,000 with total bilirubin 0.6, alkaline phosphatase 88, AST 23 and ALT 40. Review of Systems Review of systems could not be obtained in patient who is currently intubated and sedated. Past Medical History Past Medical History: Atrial Fibrillation, Cancer, GERD/Reflux, Hypertension, Memory Impairment, Pneumonia, Prostate Disorder, Seizure Disorder, Sleep Apnea/CPAP/BIPAP Additional Past Medical History / Comment(s): Dysphagia, Hx Esophageal Cancer, was Reconstructed (Chemo/Radiation 2016) - aspiration Pneumonia x3, has hiatal hernia, J-tube - gets Jevity tube feed. A-Fib x2. Hx cerebral aneurysm rupture 1994 est, has shunt - residual short term memory impairment/comprehension/balance problems @ times, Lt sided neglect, hx petit mal seizure - last 1999. Hx blood in urine, d/c'd Coumadin 12/12/19. HTN Rx d/c'd. 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 Able to eat small amounts of liquids, soft strained foods very slowly. History of Any Multi-Drug Resistant Organisms: None Reported Past Surgical History: Cholecystectomy, Joint Replacement Additional Past Surgical History / Comment(s): Hx fx Lt hip - Partial Lt Hip Replacement. Reconstruction of Esophagus [id number]. Repair of Aneurysm w/clip, has Brain Shunt - not sure if still functions, Repair Torn Retina. PEG tubes x3; J-tube placed 11/2019., RIGHT partial nephrectomy 12/2019. Past Anesthesia/Blood Transfusion Reactions: Previous Problems w/ Anesthesia, Motion Sickness Additional Past Anesthesia/Blood Transfusion Reaction / Comm: Very slow to wake up - doesn't need much per spouse. Past Psychological History: Anxiety Additional Psychological History / Comment(s): SPOUSE STATES ESPECIALLY WHEN HE DOES NOT SEE HER Smoking Status: Never smoker Past Alcohol Use History: Rare Additional Past Alcohol Use History / Comment(s): smoked occasional cigars 30 yrs. ago, AND CHEWED TOBACCO, Past Drug Use History: None Reported Additional Drug Use History / Comment(s): Rare CBD oil use - Past Family History Mother Family Medical History: Myocardial Infarction ([place]), Osteoarthritis ([place]) Medications and Allergies Home Medications Medication Instructions Recorded Confirmed Type Omeprazole 20 mg PO DAILY 12/04/19 02/11/20 History Terazosin [Hytrin] 1 mg PEG/G-TUBE HS 12/04/19 02/11/20 History Lactose-Reduced Food/Fiber [Jevity 1,200 ml PEJ/J-TUBE DIRECTED 12/28/19 02/11/20 History 1.2 Ayaan Liquid] Aspirin 81 mg PEG/G-TUBE DAILY 02/11/20 02/11/20 History Multivitamin Chewable 1 tab PO DAILY 02/11/20 02/11/20 History Vitamin B-12 500mcg Sublingual 1,000 mcg PO DAILY 02/11/20 02/11/20 History Tablet Vitamin C Chewable Tablet (Unknown 1 tab PO DAILY 02/11/20 02/11/20 History Strength) Warfarin [Coumadin] 2.5 mg PEG/G-TUBE HS 02/11/20 02/11/20 History Allergies Allergy/AdvReac Type Severity Reaction Status Date / Time No Known Allergies Allergy Verified 02/11/20 10:45 Physical Exam Vitals: Vital Signs Temp Pulse Resp BP Pulse Ox 03/05/20 11:15 64 20 99 03/05/20 11:05 62 10/21/20 11:00 64 23 95 03/05/20 10:45 64 22 96 03/05/20 10:30 61 20 96 03/05/20 10:15 65 22 96 03/05/20 10:00 67 21 96 03/05/20 09:45 66 20 96 03/05/20 09:30 78 20 96 03/05/20 09:15 64 20 97 03/05/20 09:00 60 20 96 03/05/20 08:45 59 L 20 96 03/05/20 08:30 56 L 20 98 03/05/20 08:18 57 L 03/05/20 08:15 58 L 20 97 03/05/20 08:06 58 L 20 03/05/20 08:00 59 L 20 97 03/05/20 07:45 60 20 97 03/05/20 07:30 61 20 97 03/05/20 07:00 61 20 99/62 97 03/05/20 06:00 62 24 110/63 97 03/05/20 05:00 65 20 119/71 97 03/05/20 04:00 98.1 F 66 19 97 03/05/20 03:00 68 21 97 03/05/20 02:00 61 20 98 03/05/20 01:00 59 L 21 98 03/05/20 00:00 98 F 68 20 98 03/04/20 23:00 70 23 97 03/04/20 22:00 71 21 98 03/04/20 21:00 70 20 99 03/04/20 20:41 73 23 98 03/04/20 20:00 97.7 F 73 20 97 03/04/20 19:55 74 20 03/04/20 19:41 72 20 03/04/20 19:00 73 21 97 03/04/20 18:00 75 21 98 03/04/20 17:00 72 20 96 03/04/20 16:37 74 20 03/04/20 16:25 74 20 03/04/20 16:00 98.0 F 70 22 96 03/04/20 15:00 80 27 H 96 03/04/20 14:00 82 23 97 Intake and Output 03/04/20 03/05/20 03/05/20 22:59 06:59 14:59 Intake Total 493.577 484.618 856.218 Output Total 959 368 6608 Balance -46.423 -265.382 -238.782 Intake: IV 80 60 500 Piperacillin-Tazobactam 3 100 .375 gm In Sodium Chloride 0.9% 100 ml @ 25 mls/hr IVPB Q8HR [facility] Rx# :[id number] Potassium Chloride 20 meq 100 In Water For Injection 1 100ml.bag @ 50 mls/hr IVPB ONCE ONE Rx#: [id number] Sodium Chloride 0.9% 1, 80 60 50 000 ml @ 10 mls/hr IV . Q24H [facility] Rx#:[id number] Vancomycin 1,000 mg In 250 Sodium Chloride 0.9% 250 ml @ 125 mls/hr IVPB Q12H [facility] Rx#:[id number] Intake, IV Titration 373.577 424.618 356.218 Amount Amiodarone 300 mg In 250 238.75 Dextrose 5% in Water 250 ml @ 0.5 MG/MIN 25 mls/hr IV .Q10H [facility] Rx#: [id number] Norepinephrine 4 mg In 184.139 74.618 46.977 Sodium Chloride 0.9% 250 ml @ 0.05 MCG/KG/MIN 12. 859 mls/hr IV .[id number] [facility] Rx#:[id number] propofoL 1,000 mg In 189.438 100 70.491 Empty Bag 1 bag @ Titrate IV .Q0M [facility] Rx#: [id number] Oral 40 Output: Chest Tube Drainage 670 Chest Tube Left Lateral 670 Chest Gastric Drainage 270 Urine 490 480 425 Emesis 50 Other: Voiding Method Indwelling Catheter Indwelling Catheter Weight 59 kg 59 kg ABP, PAP, CO, CI - Last 8 Hours Arterial Blood Pressure 121/59 Arterial Blood Pressure 126/62 Arterial Blood Pressure 127/60 Arterial Blood Pressure 118/57 Arterial Blood Pressure 134/64 Arterial Blood Pressure 136/65 Arterial Blood Pressure 137/67 Arterial Blood Pressure 140/71 Arterial Blood Pressure 120/62 Arterial Blood Pressure 113/62 Arterial Blood Pressure 89/56 Arterial Blood Pressure 110/56 Arterial Blood Pressure 180/47 Arterial Blood Pressure 98/52 Arterial Blood Pressure 99/51 Arterial Blood Pressure 96/50 Arterial Blood Pressure 100/52 Arterial Blood Pressure 112/54 On physical examination, patient appears comfortable in no apparent distress. HEAD: Normocephalic, atraumatic. EYES: No scleral icterus. No conjunctival injection. MOUTH: No lesions, tongue midline, endotracheal tube in place. NECK: Trachea midline, no gross abnormalities. CHEST: Coarse respiratory noises in all lung otero. HEART: S1-S2 appreciated. ABDOMEN: Soft, G-tube site clean/rash/intact. Bowel sounds are positive. No organomegaly. No guarding or rigidity. EXTREMITIES: +1 bilateral pedal edema. SKIN: No rashes, no jaundice. NEUROLOGIC: Currently intubated and sedated. Results CBC & Chem 7: 03/05/20 05:00 03/06/20 04:45 Labs: Abnormal Lab Results - Last 24 Hours (Table) 03/04/20 03/04/20 03/04/20 Range/Units 04:00 18:10 23:25 RBC (4.30-5.90) m/uL Hgb (13.0-17.5) gm/dL Hct (39.0-53.0) % RDW (11.5-15.5) % Lymphocytes # (1.0-4.8) k/uL Retic Count (0.5-2.0) % PT (9.0-12.0) sec INR (<1.2) ABG pH (7.35-7.45) ABG pO2 (83-108) mmHg ABG HCO3 (21-25) mmol/L ABG Total CO2 (19-24) mmol/L ABG O2 Saturation (94-97) % Sodium (137-145) mmol/L Creatinine (0.66-1.25) mg/dL Glucose (74-99) mg/dL POC Glucose (mg/dL) 126 H 111 H (75-99) mg/dL Calcium (8.4-10.2) mg/dL Magnesium 2.4 H (1.6-2.3) mg/dL 03/05/20 03/05/20 03/05/20 Range/Units 05:00 05:00 05:00 RBC 3.11 L (4.30-5.90) m/uL Hgb 9.0 L (13.0-17.5) gm/dL Hct 28.7 L (39.0-53.0) % RDW 16.5 H (11.5-15.5) % Lymphocytes # 0.8 L (1.0-4.8) k/uL Retic Count (0.5-2.0) % PT 12.1 H (9.0-12.0) sec INR 1.2 H (<1.2) ABG pH (7.35-7.45) ABG pO2 (83-108) mmHg ABG HCO3 (21-25) mmol/L ABG Total CO2 (19-24) mmol/L ABG O2 Saturation (94-97) % Sodium 136 L (137-145) mmol/L Creatinine 0.63 L (0.66-1.25) mg/dL Glucose 110 H (74-99) mg/dL POC Glucose (mg/dL) (75-99) mg/dL Calcium 8.1 L (8.4-10.2) mg/dL Magnesium (1.6-2.3) mg/dL 03/05/20 03/05/20 03/05/20 Range/Units 05:00 05:19 05:47 RBC (4.30-5.90) m/uL Hgb (13.0-17.5) gm/dL Hct (39.0-53.0) % RDW (11.5-15.5) % Lymphocytes # (1.0-4.8) k/uL Retic Count 3.1 H (0.5-2.0) % PT (9.0-12.0) sec INR (<1.2) ABG pH 7.47 H (7.35-7.45) ABG pO2 124 H (83-108) mmHg ABG HCO3 29 H (21-25) mmol/L ABG Total CO2 30 H (19-24) mmol/L ABG O2 Saturation 99.2 H (94-97) % Sodium (137-145) mmol/L Creatinine (0.66-1.25) mg/dL Glucose (74-99) mg/dL POC Glucose (mg/dL) 107 H (75-99) mg/dL Calcium (8.4-10.2) mg/dL Magnesium (1.6-2.3) mg/dL Microbiology - Last 24 Hours (Table) 03/03/20 09:20 Gram Stain - Final Sputum Sputum Culture - Final Methicillin resist S. aureus Klebsiella pneumoniae Chest x-ray: report reviewed (Chest x-ray after PICC placement with no complications noted) Assessment and Plan (1) Anemia associated with acute blood loss Narrative/Plan: 64-year-old male with multiple medical comorbidities including prior esophagectomy with gastric pull-through for treatment of esophageal cancer who presented to the hospital with cough and sputum production and is currently intubated procedure treatment for an aspiration pneumonia and atrial fibrillation with RVR. The patient has had recurrent episodes of epistaxis and had a supratherapeutic INR. NG tube was placed in the ICU with copious amounts of blood noted from the NG tube. Currently this seems to be slowing down. Hemoglobin is real stable at 9. Suspect bleeding which is multifactorial and secondary to the epistaxis as well as trauma from NG tube placement. Current Visit: Yes Status: Acute Code(s): D62 - ACUTE POSTHEMORRHAGIC ANEMIA SNOMED Code(s): 301312242 (2) Atrial fibrillation with rapid ventricular response Current Visit: Yes Status: Acute Code(s): I48.91 - UNSPECIFIED ATRIAL FIBRILLATION SNOMED Code(s): 662880960824207 (3) History of esophageal cancer Current Visit: Yes Status: Acute Code(s): Z85.01 - PERSONAL HISTORY OF MALIGNANT NEOPLASM OF ESOPHAGUS SNOMED Code(s): 690691512 (4) History of esophagectomy Current Visit: No Status: Acute Code(s): Z98.890 - OTHER SPECIFIED POSTPROCEDURAL STATES; Z90.49 - ACQUIRED ABSENCE OF OTHER SPECIFIED PARTS OF DIGESTIVE TRACT SNOMED Code(s): 30843911362439337 Plan: Supportive care Continue to monitor output from the nasogastric tube Continue to monitor hemoglobin and hematocrit and transfuse as needed Protonix therapy increased to twice a day Continue ICU management by the historic interpreter service Continue broad-spectrum antibiotic therapy Appreciate recommendations from consulting services No plans for endoscopic evaluation this time, we'll reevaluate if patient continues to clinically show signs of bleeding or further precipitous fall in hemoglobin as noted, and will continue medical management at this time which is been discussed with the patient's who is seated bedside at length who agrees with the treatment plan with all of her questions answered to her satisfaction Thank you for allowing us to participate in the care of the patient
[2020-03-06] MEDS: IPRATROPIUM-ALBUTEROL 3 ML NEB INHALATION SCH ×2 (07:33→11:39)
[2020-03-06] MEDS: AMIODARONE 300 MG in DEXTROSE 5% IN WATER 250 ML IV SCH ×2 (07:41)
[2020-03-06 08:26] LABS: Anisocytosis Slight; HCT 27.9 % (39.0-53.0); HGB 8.9 gm/dL (13.0-17.5); Hypochromasia Moderate; MCH 29.4 pg (25.0-35.0); MCHC 31.8 g/dL (31.0-37.0); MCV 92.5 fL (80.0-100.0); Mean Platelet Volume 8.4; Platelet Count 323 k/uL (150-450); RBC 3.02 m/uL (4.30-5.90); RDW 16.3 % (11.5-15.5)
[2020-03-06] MEDS: CHLORHEXIDINE GLUCONATE 15 ML CUP MUCOUS MEM SCH (08:26)
[2020-03-06] MEDS: VANCOMYCIN 1,000 MG in SODIUM CHLORIDE 0.9% 250 ML IVPB SCH (08:26)
[2020-03-06] MEDS: NYSTATIN 100,000 UNIT/GM POWD 15 GM TOPICAL SCH (08:27)
[2020-03-06] MEDS: OXYMETAZOLINE 0.05% NASL SPRAY 1 SPRAY BOTTLE NASAL SCH (08:27)
[2020-03-06 08:35] LABS: Anion Gap 4 mmol/L; Blood Urea Nitrogen 11 mg/dL (9-20); Calcium 8.2 mg/dL (8.4-10.2); Carbon Dioxide 28 mmol/L (22-30); Chloride 107 mmol/L (98-107); Glucose 136 mg/dL (74-99); Potassium 3.8 mmol/L (3.5-5.1); Sodium 139 mmol/L (137-145)
--- NOTE | 2020-03-06 08:58 | XR ---
EXAMINATION TYPE: XR chest 1V portable, semiupright DATE OF EXAM: 03/06/2020 Comparison: 03/05/2020 Clinical History: 64-year-old male Tube placement Findings: ET tube tip 2.8 cm from the javan. NG tube is looped behind the heart, likely within a hiatal hernia . Left subclavian CVC tip in the upper right atrium. Left PICC line also terminates at a similar leve l. Right-sided ACUTE CARE PHYSICAL THERAPIST shunt catheter. Small to moderate right and small left effusions persist. A sided c hest tube remains in place. Pneumothorax not clearly identified. Impression: Continued small to moderate right and small left pleural effusions with adjacent atelectasis and/or c onsolidation. Left-sided chest tube. No pneumothorax clearly identified. NG tube remains looped behind the heart, probably within a hiatal hernia. Clinically correlate.
[2020-03-06] MEDS ORDERED: PANTOPRAZOLE 40 MG/10 ML VIAL IVP SCH (09:00)
--- NOTE | 2020-03-06 10:26 | P.PN ---
Subjective Progress Note Date: 03/06/20 This is a 64-year-old gentleman admitted to the hospital with acute hypoxic respiratory failure. He has a known history of esophageal cancer, status post chemotherapy and NG tube placement, history of COPD, prior congestive cardiac failure. Patient was extubated yesterday, which she apparently tolerated well, however and 18 was called through the night, and patient was reintubated. The patient continues to be in and out of atrial fibrillation. He is also having runs of nonsustained ventricular tachycardia. He was initiated on IV Cardizem, we discontinued that this morning. We will merna nge his oral beta mirna and amiodarone 2 IV for the time being. Patient has a significant amount of blood in his NG tube this morning, we will hold the Coumadin. Blood pressure remains low, 106/58, 107/50. White blood cell count 22.7, hemoglobin 12.5, platelet count 332. INR today is 2.0. Sodium 137, potassium 3.9, BUN 22, creatinine 0.6, magnesium 1.9. 03/04/2020 Patient was seen and examined this morning, he continues to have significant blood and clots in his NG tube. In and out of atrial fibrillation, rate under better control overall today.blood pressure 100/60with a heart rate in the 60s, continues to be intubated. White blood cell count 12.6, hemoglobin 9.0, platelet count 365, INR 2.5 today. Sodium 134, potassium 3.7, BUN 22, creatinine 0.6.Dr. DEDRICK Posada did have a discussion with Dr. Heard this morning, patient will be given a dose of vitamin K to reverse his INR, understanding, that this is necessary in light of his bleeding.in that therefore patient is at increased risk of stroke. 03/05/2020 The patient was seen and examined this morning, overall looking better. Continues to be intubated on mechanical support.his heart rate today is under better control. Yesterday afternoon the patient did require 3 extra doses of IV metoprolol for heart rate control. His blood pressure this morning 100/50, heart rate in the 50s.White blood cell count 6.9, hemoglobin 9.0, platelet count 304. INR today is 1.2. Patient is mostly remaining in normal sinus rhythm toleonor y. Continues to be on IV amiodarone drip at 0.5 and IV metoprolol. 03/06/2020 Patient seen and examined this morning, required placement of a left sided chest tube yesterday afternoon because of a left pneumothorax. Chest x-ray from today showed continued small to moderate right and small left pleural effusion and/or consolidation. NG tube remains looped behind the heart, probably within a h iatal hernia. Blood pressure 118/50 with a heart rate in the 70s, respirations 24. White blood cell count 6.0, hemoglobin 8.9, platelet count 323. Sodium 139, potassium 3.8, BUN 11, creatinine 0.6. Patient is remaining in a normal sinus rhythm, continues to be on IV amiodarone at 0.5. Objective - Vital Signs Vital signs: Vital Signs Temp 98.6 F 03/06/20 08:00 Pulse 71 03/06/20 09:30 Resp 24 03/06/20 09:30 BP 109/63 03/06/20 05:00 Pulse Ox 95 03/06/20 09:30 Intake & Output 03/05/20 03/06/20 03/06/20 18:59 06:59 18:59 Intake Total 1058.678 890.048 708.098 Output Total 2155 1145 70 Balance -1096.322 -254.952 638.098 Weight 59 kg 61 kg Intake: IV 580 565 170 Piperacillin-Tazobactam 3 100 100 25 .375 gm In Sodium Chloride 0.9% 100 ml @ 25 mls/hr IVPB Q8HR [facility] Rx# :[id number] Potassium Chloride 20 meq 100 In Water For Injection 1 100ml.bag @ 50 mls/hr IVPB ONCE ONE Rx#: [id number] Sodium Chloride 0.9% 1, 130 90 20 000 ml @ 10 mls/hr IV . Q24H EDER Rx#:[id number] Vancomycin 1,000 mg In 250 375 125 Sodium Chloride 0.9% 250 ml @ 125 mls/hr IVPB Q12H [facility] Rx#:[id number] Intake, IV Titration 478.678 325.048 538.098 Amount Amiodarone 300 mg In 238.75 250 291.25 Dextrose 5% in Water 250 ml @ 0.5 MG/MIN 25 mls/hr IV .Q10H EDER Rx#: [id number] Mvi, Adult No.4 with Vit 60 K 10 ml Trace (Conc-1Ml/ Dose) 1 ml In Amino Acid 5%-D15w+Lytes*E* 1,000 ml @ 30 mls/hr IV .Q24H [facility]ER Rx#:[id number] Norepinephrine 4 mg In 69.437 86.848 Sodium Chloride 0.9% 250 ml @ 0.05 MCG/KG/MIN 12. 859 mls/hr IV .[id number] [facility]ER Rx#:[id number] propofoL 1,000 mg In 170.491 75.048 100 Empty Bag 1 bag @ Titrate IV .Q0M EDER Rx#: [id number] Output: Chest Tube Drainage 920 90 Chest Tube Left Lateral 920 90 Chest Gastric Drainage 400 Urine 835 1055 70 Other: Voiding Method Indwelling Catheter Indwelling Catheter Indwelling Catheter ABP, PAP, CO, CI - Last Documented Arterial Blood Pressure 118/53 - Exam PHYSICAL EXAMINATION: GENERAL: 64-year-old frail gentleman, on mechanical ventilation HEENT: Head is atraumatic, normocephalic. Pupils equal, round. Sclera anicteric. Conjunctiva are clear. Mucous membranes of the mouth are moist. Neck is supple. There is no elevated jugular venous pressure. Shunt noted in the sub-clavicle area on the right HEART EXAMINATION: Heart S1 and S2 irregularly irregular CHEST EXAMINATION: Lungs reveal scattered coarse rhonchi throughout. Left-sided chest tube in place ABDOMEN: Soft, nontender. Bowel sounds are heard. No organomegaly noted. EXTREMITIES: 2+ peripheral pulses with no evidence of peripheral edema and no calf tenderness noted. NEUROLOGIC [patient is intubated, sedated - Labs CBC & Chem 7: 03/06/20 04:45 03/06/20 04:45 Labs: Abnormal Lab Results - Last 24 Hours (Table) 03/05/20 03/05/20 03/05/20 Range/Units 05:00 05:00 15:30 RBC (4.30-5.90) m/uL Hgb (13.0-17.5) gm/dL Hct (39.0-53.0) % RDW (11.5-15.5) % Retic Count 3.1 H (0.5-2.0) % ABG pH (7.35-7.45) ABG HCO3 (21-25) mmol/L ABG Total CO2 (19-24) mmol/L ABG O2 Saturation (94-97) % Potassium 5.3 H (3.5-5.1) mmol/L Glucose (74-99) mg/dL POC Glucose (mg/dL) (75-99) mg/dL Calcium (8.4-10.2) mg/dL Iron 24 L (65-175) ug/dL % Saturation 9.34 L (15.00-50.00) Vitamin B12 1942.0 H (200.0-944.0) pg/mL 03/05/20 03/06/20 03/06/20 Range/Units 18:11 01:31 04:45 RBC (4.30-5.90) m/uL Hgb (13.0-17.5) gm/dL Hct (39.0-53.0) % RDW (11.5-15.5) % Retic Count (0.5-2.0) % ABG pH (7.35-7.45) ABG HCO3 (21-25) mmol/L ABG Total CO2 (19-24) mmol/L ABG O2 Saturation (94-97) % Potassium (3.5-5.1) mmol/L Glucose 136 H (74-99) mg/dL POC Glucose (mg/dL) 115 H 119 H (75-99) mg/dL Calcium 8.2 L (8.4-10.2) mg/dL Iron (65-175) ug/dL % Saturation (15.00-50.00) Vitamin B12 (200.0-944.0) pg/mL 03/06/20 03/06/20 03/06/20 Range/Units 04:45 04:52 06:42 RBC 3.02 L (4.30-5.90) m/uL Hgb 8.9 L (13.0-17.5) gm/dL Hct 27.9 L (39.0-53.0) % RDW 16.3 H (11.5-15.5) % Retic Count (0.5-2.0) % ABG pH 7.48 H (7.35-7.45) ABG HCO3 29 H (21-25) mmol/L ABG Total CO2 30 H (19-24) mmol/L ABG O2 Saturation 98.4 H (94-97) % Potassium (3.5-5.1) mmol/L Glucose (74-99) mg/dL POC Glucose (mg/dL) 136 H (75-99) mg/dL Calcium (8.4-10.2) mg/dL Iron (65-175) ug/dL % Saturation (15.00-50.00) Vitamin B12 (200.0-944.0) pg/mL Microbiology - Last 24 Hours (Table) 03/03/20 09:20 Gram Stain - Final Sputum Sputum Culture - Final Methicillin resist S. aureus Klebsiella pneumoniae Assessment and Plan Plan: Assessment and plan #1 acute hypoxic respiratory failure, secondary to pneumonia. Sputum positive for Klebsiella pneumonia #2 paroxysmal atrial fibrillation, on Coumadin for anticoagulation, INR 2.0 today #3 history of esophageal cancer #4 history of brain aneurysm and previous rupture with residual left-sided weakness #5 obstructive sleep apnea #6 intubated, on mechanical ventilation Plan From cardiology's perspective, Dr. DEDRICK Posada has requested that the IV amiodarone be discontinued. We will continue to follow along with you. DNP note has been reviewed, I agree with a documented findings and plan of care. Patient was seen and examined.
[2020-03-06 12:07] VITALS: PULSE 68; RESP 23; TEMP 98.5
--- NOTE | 2020-03-06 12:41 | PN ---
PROGRESS NOTE PULMONARY/CRITICAL CARE PROGRESS NOTE: DATE OF SERVICE: 03/06/2020 Critical care time 34 minutes. A 64-year-old gentleman who was admitted way back in February 10 for pneumonia. He was in the ICU on the following day, February 11. The patient was doing reasonably well the last time I saw him a couple weeks back. Subsequent to that, he had a history of a respiratory failure which required intubation on February 18 and finally, extubation on February 27. He has a history of esophageal cancer, status post esophagectomy with gastric pull-through procedure and J-tube placement. This was done at [facility] by Dr. Saucedo. Anyway, over the weekend, he was doing so well after his extubation on 02/27, he was sent out to the floor but unfortunately because of atrial fibrillation with RVR, epistaxis, and GI bleed, the patient was reintubated on March 03. Currently, he remains on the ventilator. He is on the volume assist-control mode, rate of 20, tidal volume 400, FiO2 of 30%, PEEP of 5. Blood gases show pO2 of 98, pCO2 of 39 and pH of 7.45. His blood gases are consistent with normosmia and mild metabolic alkalosis. He is on amiodarone at 0.5 mg/minute, 0.9 at 10 mL an hour, Diprivan at 40 mcg/kg per minute, TPN at 30 mL an hour, Levophed has been turned off. The patient has had 1 L from his chest tube since it was placed yesterday by myself. It is a left- sided chest tube. The patient has a right subclavian triple-lumen catheter in place. He has got a right radial art line, and a left-sided chest tube. Currently, the patient is being considered for transfer to [facility]. I spoke with Dr. Hanna yesterday. He looked back on a CAT scan from February 17 and recent chest x-ray done March 05 and I also spoke to Dr. Juan Suarez, the surgeon about the same issues which are the fact that a lot of his patient's abdominal contents have unfortunately ended up in the thoracic cavity. That is why, the patient should be transferred back to [facility] according to the surgeons there. Current vital signs are reviewed. Temperature 98.6, heart rate 71, respiratory rate 24, blood pressure 118/53, CVP is 4, saturations are 95%. Appears in no acute distress. Currently sedated. HEENT: Examination is grossly unremarkable. He has an orally placed endotracheal tube and an NG tube placed transnasally. NECK: Supple full range of motion. CARDIOVASCULAR: Examination reveals regular rhythm and rate. Heart rate mid 60s. S1, S2 normal. Heart sounds are distant. LUNGS: Reveal diffuse coarse rhonchi. Breath sounds are diminished. He has a left- sided chest tube. ABDOMEN: Soft. No bowel sounds. EXTREMITIES: Intact. No cyanosis or clubbing, or significant edema. SKIN: Without rash. NEUROLOGIC: Examination is difficult to assess given his current level of sedation. LABORATORY DATA: Reviewed. White count 6, hemoglobin 8.9, hematocrit 27.9, platelet count 323.000. Blood gases have been noted. PO2 of 98, pCO2 of 39, and a pH of 7.45. Sodium, potassium, chloride, CO2 all normal. Anion gap normal. Kidney function normal. Calcium 8.2. Most recent chest x-ray shows a left-sided chest tube. The endotracheal tube 2.8 cm from the javan. The tip of the left subclavian is in the right atrium. The patient has a small to moderate right-sided pleural effusion and a very tiny left- sided pleural effusion. No pneumothorax is noted. CURRENT MEDICATIONS: Reviewed. The patient is on Tylenol, TPN, amiodarone, chlorhexidine, insulin, DuoNeb, Reglan, metoprolol, Narcan, nystatin, Zofran, Afrin nasal spray, Protonix phosphorus replacement therapy, Zosyn, potassium replacement, propofol and vancomycin. Microbiology is reviewed. Most recent data is from March 03 which shows a sputum that has both methicillin-resistant Staph aureus and Klebsiella pneumoniae. The MRSA is oxacillin resistant, which is why the patient is on vancomycin and the Klebsiella pneumoniae is sensitive to the piperacillin/tazobactam, ie. Zosyn. ASSESSMENT: 1. Acute hypoxemic respiratory failure secondary to atrial fibrillation with RVR, gastrointestinal bleeding, and profound epistaxis, with re-intubation on March 03, 2020. 2. Prior episode of respiratory failure, secondary to pneumonia, requiring intubation and mechanical ventilation with intubation on 02/18 and successful extubation on February 28, 2020. 3. Chronic aspiration pneumonia. 4. Klebsiella pneumoniae pneumonia. 5. Acute diastolic congestive heart failure. 6. Atrial fibrillation with RVR. 7. History of esophageal cancer, status post esophagectomy with gastric pull-through surgery and J-tube placement. 8. History of seizure disorder. 9. History of brain aneurysm, status post rupture with residual left-sided weakness. 10.Sleep apnea syndrome, noncompliant with CPAP. 11.General medical debility. 12.Persistent hypotension, resolved. 13.Recent sputum showing evidence of MRSA and Klebsiella pneumoniae, currently on vancomycin and Zosyn. PLAN: I had conversations with Dr. Hanna and Dr. Suarez about this patient yesterday. Dr. Suarez feels the patient should be transferred back to [facility] to see thoracic surgeon there to deal with the issue of the abdominal contents and organs being in the chest cavity. Currently, the patient is on the volume assist-control mode. He remains on amiodarone, 0.9, propofol and TPN. The patient had 1 L of output from the left chest tube that was placed yesterday. Additional recommendations and suggestions are forthcoming. We have been in constant contact with the , [facility]. No additional recommendations are made. Prognosis is guarded. MMODL / IJN: [id number] /
[2020-03-06] MEDS ORDERED: 1: MVI, ADULT NO.4 WITH VIT K 10 ML, TRACE (CONC-1ML/DOSE) 1 ML in AMINO ACID 5%-D15W+LY IV SCH ×3 (17:00)
[2020-03-07] MEDS ORDERED: LIDOCAINE 1% (10MG/ML) FOR IV START INTRADERMA PRN (05:43)
[2020-03-07] MEDS ORDERED: LACTATED RINGERS 1,000 ML IV SCH (05:45)
--- NOTE | 2020-03-19 08:31 | CDI ---
Documentation Clarification Form Date: 03/19/2020 08:12:38 AM From: Jacqueline VilaHernandezPATY echevarria, CCDS Admit Date: 02/11/2020 01:12:00 PM Patient Name: Umesh Jarquin Visit Number: [id number] Discharge Date: 03/06/2020 12:07:00 PM ATTENTION: The Clinical Documentation Specialists (CDI) and [facility] Coding Staff appreciate your assistance in clarifying documentation. Please respond to the clarification below the line at the bottom and electronically sign. The CDI & [facility] Coding staff will review the response and follow-up if needed. Please note: Queries are made part of the Legal Health Record. If you have any questions, please contact the author of this message via ITS. Dr. Beryl Márquez: Per the History & Physical on 02/10, the patient is admitted with Acute Hypoxic Respiratory Failure probably secondary to Pneumonia. Per the 02/11 Pulmonary/Critical Care Consult on 02/10, the patient is admitted with Acute Hypoxemic Respiratory Failure secondary to Aspiration Pneumonia. Septic Shock is first documented on 02/19 in the Pulmonary/Critical Care Progress Note. Sepsis is first documented on 02/24 in the Pulmonary/Critical Care Progress Note. History/Risk Factors: Atrial fibrillation, Previous Aspiration Pneumonia, Dysphagia with history of Esophageal Cancer status post reconstruction, chemotherapy & radiation, patient has Jevity Tube for feeding and Sleep Apnea. Clinical Indicators: Presented to the ED on 02/10 via EMS with SOB & cough with productive green sputum. 02/10 VS: T 98.5, P 101^, R 18 - 32^, BP 131/91, PO 96 4Lnc 02/10 LAB: WBC 13.5^, Neutrophils 12.4^, Lactic Acid (1.7). UA: Clear, 1+ Protein. COVID NEGATIVE 02/10 Cultures: Blood Cx: negative after 144 hrs, Wound Cx: negative. 02/13 Wd Cx: Cassie Albicans. 02/18 Bl cx: negative. 02/19 Sputum Cx: Klebsiella pneumonia. 02/23 Wound Cx: Cassie Albicans, Klebsiella pneumonia. 03/03 Sputum Cx: MRSA, Klebsiella pneumonia. Treatment 02/10: IV fluid 500 mls @ 999 mls/hr, IV Azithromycin, IV rocephin, IV Cardizem Drip Bolus. 02/10: IV Lasix, Iv Zofran, IV Reglan, IV Zosyn, IV Kcl, IV Dextrose w/Amiodarone In your professional opinion, please clarify the following: Sepsis: Present on Admission o With or Without Septic Shock Sepsis: Not Present on Admission o With or Without Septic Shock Other, please clarify: Unable to determine (Last Revision: August 2017) Sepsis: Present on Admission With Septic Shock MTDD
== END 2020-03-06 12:07 | disposition short-term general hospital (02) | DRG 870 ==
LOC: EC 09:38 → 4SSUR 13:12 → 3SCARD 17:02 → 2SICU 02-12 06:37 → 3SCARD 03-02 15:08 → 2SICU 03-03 05:42
PROVIDERS: ADMIT Internal Medicine; ATTEND Internal Medicine
PROC: 05HA33Z Insertion of Infusion Device into Left Brachial Vein, Percutaneous Approach (ICD-10-PCS; 2020-02-11)
PROC: 3E0G76Z Introduction of Nutritional Substance into Upper GI, Via Natural or Artificial Opening (ICD-10-PCS; 2020-02-12)
PROC: 5A1955Z Respiratory Ventilation, Greater than 96 Consecutive Hours (ICD-10-PCS; principal; 2020-02-19)
PROC: 5A09357 Assistance with Respiratory Ventilation, Less than 24 Consecutive Hours, Continuous Positive Airway Pressure (ICD-10-PCS; 2020-02-19)
PROC: 0BH17EZ Insertion of Endotracheal Airway into Trachea, Via Natural or Artificial Opening (ICD-10-PCS; 2020-02-19)
PROC: 5A12012 Performance of Cardiac Output, Single, Manual (ICD-10-PCS; 2020-02-20)
PROC: 02HV33Z Insertion of Infusion Device into Superior Vena Cava, Percutaneous Approach (ICD-10-PCS; 2020-02-20)
PROC: 02HV33Z Insertion of Infusion Device into Superior Vena Cava, Percutaneous Approach (ICD-10-PCS; 2020-02-29)
PROC: 5A1945Z Respiratory Ventilation, 24-96 Consecutive Hours (ICD-10-PCS; 2020-03-03)
PROC: 0BH17EZ Insertion of Endotracheal Airway into Trachea, Via Natural or Artificial Opening (ICD-10-PCS; 2020-03-03)
PROC: 02H633Z Insertion of Infusion Device into Right Atrium, Percutaneous Approach (ICD-10-PCS; 2020-03-03)
PROC: 02HV33Z Insertion of Infusion Device into Superior Vena Cava, Percutaneous Approach (ICD-10-PCS; 2020-03-05)
PROC: 0W9B30Z Drainage of Left Pleural Cavity with Drainage Device, Percutaneous Approach (ICD-10-PCS; 2020-03-05)
DX: A41.50 Gram-negative sepsis, unspecified (principal); J15.0 Pneumonia due to Klebsiella pneumoniae; R65.21 Severe sepsis with septic shock; J96.01 Acute respiratory failure with hypoxia; I46.9 Cardiac arrest, cause unspecified; I50.43 Acute on chronic combined systolic (congestive) and diastolic (congestive) heart failure; R57.1 Hypovolemic shock; J69.0 Pneumonitis due to inhalation of food and vomit; D62 Acute posthemorrhagic anemia; E87.4 Mixed disorder of acid-base balance; I42.9 Cardiomyopathy, unspecified; I47.2 Ventricular tachycardia; J93.9 Pneumothorax, unspecified; J98.11 Atelectasis; K94.13 Enterostomy malfunction; K92.2 Gastrointestinal hemorrhage, unspecified; R64 Cachexia; Z68.1 Body mass index [BMI] 19.9 or less, adult; I45.2 Bifascicular block; Z87.891 Personal history of nicotine dependence; E87.6 Hypokalemia; T50.2X5A Adverse effect of carbonic-anhydrase inhibitors, benzothiadiazides and other diuretics, initial encounter; Z85.528 Personal history of other malignant neoplasm of kidney; Z85.01 Personal history of malignant neoplasm of esophagus; Z66 Do not resuscitate; Z20.828 Contact with and (suspected) exposure to other viral communicable diseases; F41.9 Anxiety disorder, unspecified; G40.A09 Absence epileptic syndrome, not intractable, without status epilepticus; G47.33 Obstructive sleep apnea (adult) (pediatric); Z99.89 Dependence on other enabling machines and devices; I11.0 Hypertensive heart disease with heart failure; I48.0 Paroxysmal atrial fibrillation; I49.5 Sick sinus syndrome; J43.9 Emphysema, unspecified; K21.9 Gastro-esophageal reflux disease without esophagitis; K44.9 Diaphragmatic hernia without obstruction or gangrene; R04.0 Epistaxis; N40.0 Benign prostatic hyperplasia without lower urinary tract symptoms; R79.1 Abnormal coagulation profile; Z98.2 Presence of cerebrospinal fluid drainage device; Z79.01 Long term (current) use of anticoagulants; Z79.4 Long term (current) use of insulin; Z79.82 Long term (current) use of aspirin; Z79.899 Other long term (current) drug therapy; Z82.49 Family history of ischemic heart disease and other diseases of the circulatory system; Z85.028 Personal history of other malignant neoplasm of stomach; Z87.01 Personal history of pneumonia (recurrent); Z90.5 Acquired absence of kidney; Z91.19 Patient's noncompliance with other medical treatment and regimen; Z92.21 Personal history of antineoplastic chemotherapy; Z92.3 Personal history of irradiation; Z96.642 Presence of left artificial hip joint; Z99.3 Dependence on wheelchair; Z82.61 Family history of arthritis; Z90.49 Acquired absence of other specified parts of digestive tract; Z53.09 Procedure and treatment not carried out because of other contraindication; R91.8 Other nonspecific abnormal finding of lung field; R41.3 Other amnesia
CPT/HCPCS: 36410; 36415; 36573; 36600; 71045; 71046; 71250; 76604; 76937; 80048; 80053; 80202; 81001; 82272; 82330; 82533; 82607; 82728; 82746; 82805; 83036; 83540; 83550; 83605; 83735; 83880; 84100; 84132; 84145; 84478; 84484; 85025; 85027; 85045; 85379; 85610; 85730; 86850; 86900; 86901; 87040; 87070; 87077; 87186; 87205; 93005; 93306; 94002; 94003; 94640; 94660; 96361; 96365; 96366; 96367; 96375; 96376; 99285

== ENCOUNTER → 2021-09-21 | Outpatient (CLI) | payer MEDICARE, BC ==
[2021-09-21 09:55] LABS: African American GFR (CKD) >90 (>60 ml/min/1.73 sqM); Blood Urea Nitrogen 23 mg/dL (9-20); Non-African American GFR(CKD) 88 (>60 ml/min/1.73 sqM)
--- NOTE | 2021-09-21 13:04 | CT ---
EXAMINATION TYPE: CT ChestAbdPelvis w con DATE OF EXAM: 09/21/2021 COMPARISON: CT dated 02/18/2020 and 11/10/2019 HISTORY: esophageal CA CT DLP: 688.1 mGycm Automated exposure control for dose reduction was used. CONTRAST: CT scan of the chest, abdomen and pelvis is performed with Oral Contrast and with IV Contrast, patien t injected with 100 mL of Isovue 300. FINDINGS: LUNGS: COPD changes. Bilateral basal pulmonary atelectasis. Significant loss of volume of the lower l obes more on the left side secondary to the hiatal hernia. Minimal fibrotic changes in the right lung apex. Patent trachea and main bronchi. No pleural effusion MEDIASTINUM: Previous esophagectomy and gastric pull-up surgery. Free flow of the ingested oral contr ast down to the small bowel. No evidence of gastric obstruction. Large hiatal hernia containing fat a nd large portion of the transverse colon and ascending colon, mainly seen in the left lower lung zone . The cecum and ileocecal junction are seen in the upper abdomen in the midline. No pathologically en larged lymph nodes in the chest. Ascending aortic dilatation measuring up to 3.7 cm. Coronary arteria l atherosclerotic calcifications. No gross cardiomegaly. No pericardial effusion. OTHER: Suspected hypodensity in the right thyroid lobe, please correlate with thyroid ultrasound res ults. Degenerative changes of the right glenohumeral articulation. Exaggerated dorsal kyphosis. No gr oss aggressive bone lesion. LIVER/GB: No definite hepatic focal lesion. Previous cholecystectomy. PANCREAS: The pancreatic body is tethered towards the hiatal hernia. No definite pancreatic lesion. SPLEEN: No significant abnormality is seen. ADRENALS: No significant abnormality is seen. KIDNEYS: Focal cortical defect at the posterior aspect of the right lower renal pole, otherwise unrem arkable kidneys. BOWEL: No evidence of bowel obstruction. Fecal loading of the colon. Scattered uncomplicated colonic diverticulosis. No evidence of acute appendicitis. REPRODUCTIVE ORGANS: Obscured by artifacts. LYMPH NODES: No greater than 1 cm abdominal or pelvic lymph nodes are appreciated. OSSEOUS STRUCTURES: Degenerative changes at L5-S1 level. No aggressive bone lesion. OTHER: Scattered arterial atherosclerotic calcifications. No sizable ascites. The urinary bladder is suboptimally assessed. Left hip arthroplasty. Suspected PARTS COUNTER REPRESENTATIVE shunt in place. IMPRESSION: Status post esophagectomy and gastric pull-up surgery. No evidence of local tumor recurrence or metas tatic disease in the chest, abdomen or the pelvis. Large hiatal hernia containing fat and large portion of the colon with mass effect as detailed above. Recommend surgical consultation. Other findings as detailed above.
== END | disposition home or self-care (01) ==
LOC: RADCTMAIN 09:03
PROVIDERS: ATTEND Internal Medicine Hematology & Oncology
DX: C15.9 Malignant neoplasm of esophagus, unspecified (principal); K44.9 Diaphragmatic hernia without obstruction or gangrene; Z90.49 Acquired absence of other specified parts of digestive tract
CPT/HCPCS: 82565; 84520; 71260; 74177; 36415; Q9967

== ENCOUNTER → 2022-08-06 | Outpatient (CLI) | payer MEDICARE, BC ==
--- NOTE | 2022-08-06 14:10 | CT ---
EXAMINATION TYPE: CT ChestAbdPelvis w con CT DLP: 908.8 mGycm, Automated exposure control for dose reduction was used. DATE OF EXAM: 08/06/2022 1:57 PM COMPARISON: CT chest abdomen pelvis 09/21/2021. CLINICAL INDICATION:Male, 67 years old with history of C15.5 MALIGNANT NEOPLASM OF LOWER THIRD OF ESO PHAG; [facility], Follow up for esophageal cancer. Technique: Multiple axial images of the chest, abdomen, and pelvis were obtained following the intrav enous administration of 100 mL Isovue-300. Oral contrast was demonstrated. Two-dimensional coronal an d sagittal reconstructions were obtained. Findings: CHEST: LUNGS/ PLEURA: No pleural effusion, pneumothorax, or focal consolidation. Bilateral lower lobe servicer ior atelectasis. Mild COPD changes. No suspicious pulmonary nodule or mass. AIRWAY: Patent and unremarkable.. HEART: Size within normal limits. . MEDIASTINUM: No gross evidence of adenopathy. No aggressive osseous lesion. Increased thoracic kyphos is. Postsurgical changes from esophagectomy and gastric pull-up. VASCULATURE: No aortic aneurysm. MUSCULOSKELETAL: No acute osseous abnormalities. SOFT TISSUES/LYMPH NODES: Right anterior chest wall INFORMATION SERVICES VICE PRESIDENT shunt catheter identified. LOWER NECK: No significant findings. ABDOMEN: ABDOMEN LIVER: Unremarkable GALLBLADDER AND BILE DUCTS: The gallbladder is surgically absent. No biliary duct dilatation. PANCREAS: Unremarkable. SPLEEN: Unremarkable. ADRENAL GLANDS: Unremarkable. KIDNEYS AND URETERS: No evidence of hydronephrosis or renal calculus. The kidneys enhance symmetrical ly. PELVIS BLADDER: Limited evaluation due to streak artifact from hip prosthesis. REPRODUCTIVE: Unremarkable. ABDOMEN & PELVIS STOMACH AND BOWEL: Postsurgical changes from esophagectomy and gastric pull-up. No focal wall thicken ing to suggest recurrence. Enteric contrast freely flows into the mid small bowel. Large hiatal herni a has increased in size containing gastric pull-up, small bowel, and the colon. No evidence of bowel obstruction. PERITONEUM: No evidence of pneumoperitoneum or free fluid. VASCULATURE: No evidence of aortic aneurysm. MUSCULOSKELETAL: No acute osseous abnormalities. No aggressive osseous lesion. Post surgical changes from left total hip arthroplasty. Mild degenerative disc disease at L5-S1. LYMPH NODES: No gross evidence for lymphadenopathy. SOFT TISSUE/ABDOMINAL WALL: Right anterior abdominal wall INFORMATION SERVICES VICE PRESIDENT shunt catheter identified with tip termi nating in the anterior midline pelvis. No organized fluid collections at its tip. IMPRESSION: 1. Status post esophagectomy and gastric pull-up surgery without evidence for local tumor recurrence or metastatic disease within chest, abdomen or pelvis. 2. Increased size of large hiatal hernia containing the gastric pull-up, small bowel and the colon. Recommend surgical consultation. 3. Mild COPD changes.
== END | disposition home or self-care (01) ==
LOC: RADCTMAIN 11:49
PROVIDERS: ATTEND Internal Medicine Hematology & Oncology
DX: C15.5 Malignant neoplasm of lower third of esophagus (principal); J44.9 Chronic obstructive pulmonary disease, unspecified; K44.9 Diaphragmatic hernia without obstruction or gangrene; Z90.49 Acquired absence of other specified parts of digestive tract
CPT/HCPCS: 82565; 84520; 71260; 74177; 36415; Q9967

== ENCOUNTER 2023-07-06 07:45 | Day surgery (SDC) | payer MEDICARE, BC ==
[2023-07-01 12:31] VITALS: BMI 22.3
[~2023-07-06 07:45] MED LIST changes: -BUPIVACAINE (PF) 0.5% 30 ML VIAL SQ ONE; -DEXAMETHASONE SOD PHOSPHATE 10 MG/ML 1 ML VIAL IV ONE; -GLYCOPYRROLATE 0.2 MG/ML 2 ML VIAL ONE; -LACTATED RINGERS 1,000 ML IV ONE; -LIDOCAINE 1% (10MG/ML) FOR IV START INTRADERMA ONE; +LIDOCAINE 1% (10MG/ML) FOR IV START INTRADERMA PRN; -LIDOCAINE 1% INJ 10MG/ML (20 ML MDV) ONE; -MANNITOL 25% 12.5 GM/50 ML VIAL ONE; -MIDAZOLAM 2 MG/2 ML VIAL IV PRN; -MIDAZOLAM 2 MG/2 ML VIAL ONE; -NEOSTIGMINE 1 MG/ML 10 ML VIAL ONE; -ONDANSETRON 4 MG/2 ML VIAL IVP ONE; -ONDANSETRON 4 MG/2 ML VIAL ONE; -PROPOFOL 10 MG/ML 20 ML VIAL IV ONE; -ROCURONIUM BROMIDE 10 MG/ML 5 ML VIAL IV ONE; -SCOPOLAMINE 1.5MG/72HR PATCH TRANSDERM ONE; -SUCCINYLCHOLINE CHLORIDE 100 MG/5 ML SYR IV ONE; -fentaNYL (PF) 50 MCG/ML 2 ML AMP ONE
[2023-07-06] MEDS: LACTATED RINGERS 1,000 ML IV SCH (08:03)
[2023-07-06 08:20] VITALS: RESP 16; TEMP 97.1
[2023-07-06] MEDS ORDERED: PROPOFOL 10 MG/ML 20 ML VIAL IV ONE (08:31)
--- NOTE | 2023-07-06 08:34 | P.GSHP ---
History of Present Illness H&P Date: 07/06/23 CHIEF COMPLAINT: Esophageal stricture HISTORY OF PRESENT ILLNESS: The patient is a 68-year-old male who presents reports dysphagia. Upper endoscopy was offered for further evaluation and management. PAST MEDICAL HISTORY: Please see list. PAST SURGICAL HISTORY: Please see list. MEDICATIONS: Please see list. ALLERGIES: Please see list. SOCIAL HISTORY: No illicit drug use FAMILY HISTORY: No reports of Crohn disease or ulcerative colitis. REVIEW OF ORGAN SYSTEMS: CONSTITUTIONAL: No reports of fevers or chills. GI: Denies any blood in stools or constipation. PHYSICAL EXAM: VITAL SIGNS: Stable GENERAL: Well-developed and pleasant in no acute distress. HEENT: No scleral icterus. Extraocular movements grossly intact. Moist buccal mucosa. NECK: Supple without lymphadenopathy. CHEST: Unlabored respirations. Equal bilateral excursions. CARDIOVASCULAR: Regular rate and rhythm. Distal 2+ pulses. ABDOMEN: Soft, nondistended. MUSCULOSKELETAL: No clubbing, cyanosis, or edema. ASSESSMENT: 1. Esophageal stricture PLAN: 1. Recommend proceeding with an upper endoscopy with rigid dilators. Past Medical History Past Medical History: Atrial Fibrillation, Cancer, GERD/Reflux, Hypertension, Memory Impairment, Pneumonia, Prostate Disorder, Seizure Disorder, Sleep Apnea/CPAP/BIPAP Additional Past Medical History / Comment(s): Dysphagia, Hx Esophageal Cancer, was Reconstructed (Chemo/Radiation 2016) - aspiration Pneumonia x3, has hiatal hernia, J-tube - gets Jevity tube feed. A-Fib x2. Hx cerebral aneurysm rupture 1994 est, has shunt - residual comprehension/balance problems @ times and has no short term memory, Lt sided neglect, hx petit mal seizure - last 1999. Hx blood in urine, d/c'd Coumadin 12/12/19. HTN Rx d/c'd. 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 Able to eat small amounts of liquids, soft strained foods very slowly, renal cancer History of Any Multi-Drug Resistant Organisms: MRSA Date of last positivie culture/infection: 03/03/20 MDRO Source:: MRSA SPUTUM Past Surgical History: Cholecystectomy, Joint Replacement Additional Past Surgical History / Comment(s): Hx fx Lt hip - Partial Lt Hip Replacement. Reconstruction of Esophagus [id number]. Repair of Aneurysm w/clip, has Brain Shunt, Repair Torn Retina and procedures for bleeding after aneurysm, PEG tubes x3; J-tube placed 11/2019 and since removed, RIGHT partial nephrectomy 12/2019. Past Anesthesia/Blood Transfusion Reactions: Previous Problems w/ Anesthesia, Motion Sickness Additional Past Anesthesia/Blood Transfusion Reaction / Comment(s): Very slow to wake up - doesn't need much per spouse. Past Psychological History: Anxiety Additional Psychological History / Comment(s): SPOUSE STATES ESPECIALLY WHEN HE DOES NOT SEE HER. PT HAS NO SHORT TERM MEMORY Smoking Status: Never smoker Past Alcohol Use History: None Reported Additional Past Alcohol Use History / Comment(s): smoked occasional cigars 30 yrs. ago, AND CHEWED TOBACCO, Past Drug Use History: None Reported Additional Drug Use History / Comment(s): . - Past Family History Mother Family Medical History: Myocardial Infarction ([place]), Osteoarthritis ([place]) Medications and Allergies Home Medications Medication Instructions Recorded Confirmed Type Multivitamin Chewable 1 tab PO DAILY 02/11/20 07/06/23 History Vitamin B-12 500mcg Sublingual 2,500 mcg PO DAILY 02/11/20 07/06/23 History Tablet Apixaban [Eliquis] 5 mg PO BID 07/01/23 07/06/23 History Atorvastatin [Lipitor] 20 mg PO DAILY 07/01/23 07/06/23 History Finasteride [Proscar] 5 mg PO DAILY 07/01/23 07/06/23 History Metoprolol Tartrate [Lopressor] 25 mg PO BID 07/01/23 07/06/23 History Allergies Allergy/AdvReac Type Severity Reaction Status Date / Time No Known Allergies Allergy Verified 07/06/23 08:08 Surgical - Exam Vital Signs Temp Pulse Resp BP Pulse Ox 97.1 F L 59 L 16 178/82 97 07/06/23 08:11 07/06/23 08:11 07/06/23 08:11 07/06/23 08:11 07/06/23 08:11
[2023-07-06 08:42] LABS: Glucose,Whole Blood 83 mg/dL (70-110)
--- NOTE | 2023-07-06 08:55 | P.PCN ---
Date of Procedure: 07/06/23 Description of Procedure: PREOPERATIVE DIAGNOSIS: Dysphagia. Esophageal stricture History of esophageal cancer status post gastric pull through POSTOPERATIVE DIAGNOSIS: Dysphagia. Esophageal stricture History of esophageal cancer status post gastric pull through OPERATION: Esophagogastroduodenoscopy with rigid dilator over the guidewire 57 Fr. SURGEON: Steph Briones MD ANESTHESIA: MAC. INDICATIONS: The patient is a 68-year-old male who presents with a history of dysphagia including esophageal cancer status post gastric pull-through. Benefits and risks of the procedure were described. Informed consent was obtained. DESCRIPTION: The patient was brought into the endoscopy suite and laid in the left lateral decubitus position. After a timeout was confirmed, the procedure was initiated. An Olympus gastroscope was passed beyond upper cervical anastomosis of gastric pull-through with mild stenosis. Mild gastritis was identified. The scope was advanced to the duodenum which was unremarkable. Next using an [place] rigid dilator, a guidewire was placed through the pediatric gastroscope. Next the scope was withdrawn. A 57-Dominican rigid [place]arian dilator was passed carefully along the posterior oropharynx to 40 cm and left in place for 2-3 minutes stretch. The dilator was withdrawn including the guidewire. The scope was reentered along the posterior oropharynx with no findings of full-thickness tear of the upper cervical anastomosis. No full-thickness injury was encountered. The GI tract was desufflated. The patient tolerated the procedure well. FINDINGS: Cervical anastomosis with stenosis of gastric polyp. [place]tarian rigid dilator 57-Dominican completed. Diffuse gastritis. Retained food within gastric pull-through RECOMMENDATIONS: Upper endoscopy as needed Plan - Discharge Summary Discharge Rx Participant: No New Discharge Prescriptions: Continue Vitamin B-12 500mcg Sublingual Tablet 2,500 mcg PO DAILY Multivitamin Chewable 1 tab PO DAILY Atorvastatin [Lipitor] 20 mg PO DAILY Apixaban [Eliquis] 5 mg PO BID Metoprolol Tartrate [Lopressor] 25 mg PO BID Finasteride [Proscar] 5 mg PO DAILY Discharge Medication List Multivitamin Chewable 1 tab PO DAILY 02/11/20 [History] Vitamin B-12 500mcg Sublingual Tablet 2,500 mcg PO DAILY 02/11/20 [History] Apixaban [Eliquis] 5 mg PO BID 07/01/23 [History] Atorvastatin [Lipitor] 20 mg PO DAILY 07/01/23 [History] Finasteride [Proscar] 5 mg PO DAILY 07/01/23 [History] Metoprolol Tartrate [Lopressor] 25 mg PO BID 07/01/23 [History] Follow up Appointment(s)/Referral(s): Steph Briones MD [STAFF PHYSICIAN] - As Needed Patient Instructions/Handouts: Esophageal Dilation (DC) Activity/Diet/Wound Care/Special Instructions: Resume blood thinner 07/08/2023. Warm beverages today and tomorrow. Discharge Disposition: HOME SELF-CARE
[2023-07-06 09:17] LABS: Glucose,Whole Blood 79 mg/dL (70-110)
[2023-07-06 09:30] VITALS: BP 139/61; PULSE 55
== END 2023-07-06 10:05 | disposition home or self-care (01) ==
LOC: ORWHC2ENDO 07:45
PROVIDERS: ATTEND Surgery Plastic and Reconstructive Surgery
DX: K22.2 Esophageal obstruction (principal); Z87.19 Personal history of other diseases of the digestive system; K29.50 Unspecified chronic gastritis without bleeding; Z79.899 Other long term (current) drug therapy; Z98.890 Other specified postprocedural states; I48.91 Unspecified atrial fibrillation; K21.9 Gastro-esophageal reflux disease without esophagitis; I10 Essential (primary) hypertension; G40.909 Epilepsy, unspecified, not intractable, without status epilepticus; G47.33 Obstructive sleep apnea (adult) (pediatric); K44.9 Diaphragmatic hernia without obstruction or gangrene; Z90.49 Acquired absence of other specified parts of digestive tract; F17.210 Nicotine dependence, cigarettes, uncomplicated; Z82.49 Family history of ischemic heart disease and other diseases of the circulatory system; Z79.01 Long term (current) use of anticoagulants
CPT/HCPCS: 43248; J2704